=== PATIENT | female | born 1975 | race Caucasian/White ===

== ENCOUNTER → 2017-07-08 11:03 | Outpatient (CLI) | payer MEDICARE, MEDICAID, SELFPAY ==
--- NOTE | 2017-07-08 11:06 | ECHOD_ITS ---
Reason For Study: murmur, MVP Procedure This was a 2D Doppler, Color Flow transthoracic echocardiogram. The exam was of fair technical quality due to diminished acoustic windows. The study was technically difficult. Exam performed in department. Left Ventricle Normal LV size. Left ventricular systolic function is normal. The estimated ejection fraction is 60 %. Transmitral doppler flow suggestive of impaired relaxation of left ventricle. No regional wall motion abnormalities noted. Right Ventricle Normal RV size. Normal systolic function. Atria Normal left atrium. Normal right atrium. No doppler evidence for ASD. Mitral Valve There is no mitral annular calcification. Mild mitral valve prolapse. Trivial mitral valve insufficiency. Tricuspid Valve Normal tricuspid valve. Trivial tricuspid valve insufficiency. Unable to estimate RV systolic pressure/pulmonary artery pressure due to technically difficult study. Aortic Valve Trisinus/trileaflet aortic valve. Normal aortic valve. Pulmonic Valve The pulmonic valve is not well visualized. Great Vessels Normal sized aortic root. Pericardium/Pleural No pericardial effusion. MMode/2D Measurements & Calculations LVIDd: 4.0 cm IVSd: 0.94 cm Ao root diam: 2.2 cm LVIDs: 2.7 cm LVPWd: 0.80 cm LA dimension: 2.4 cm RVDd: 2.3 cm FS: 31.9 % LAV(MOD-bp): 29.0 ml LA A4 area: 11.7 cm2 RA A4 area: 7.0 cm2 LAV(MOD-bp) Indexed: 18.7 ml/m2 LAV(MOD-sp2): 32.1 ml LAV(MOD-sp4): 23.5 ml Doppler Measurements & Calculations MV E max andrew: 58.4 cm/sec Lat Peak E' Andrew: 14.4 cm/sec Med Peak E' Andrew: 6.0 cm/sec MV A max andrew: 68.7 cm/sec E/E' lat: 4.1 E/E' med: 9.7 MV E/A: 0.85 Ao V2 max: 124.2 cm/sec LV V1 max: 101.4 cm/sec PA V2 max: 75.5 cm/sec Ao max P.2 mmHg LV V1 max P.1 mmHg Interpretation Summary The study was technically difficult. Left ventricular systolic function is normal. The estimated ejection fraction is 60 %. Mild mitral valve prolapse. Trivial mitral valve insufficiency. Trivial tricuspid valve insufficiency. Unable to estimate RV systolic pressure/pulmonary artery pressure due to technically difficult study. Transmitral doppler flow suggestive of impaired relaxation of left ventricle Ordering Physician: Anita Corley Referring Physician: Luisa Pemberton Performed By: Sondra Moctezuma RDCS, RVT
== END ==
PROVIDERS: Family Provider Family Medicine; PCP Family Medicine; Visit Provider Physician Assistant Medical
DX: I34.1 Nonrheumatic mitral (valve) prolapse (principal); R01.1 Cardiac murmur, unspecified
CPT/HCPCS: 93306

== ENCOUNTER → 2019-02-02 12:57 | Outpatient (CLI) | payer MEDICARE, MEDICAID, SELFPAY ==
[2019-02-04 16:59] LABS: HPV Reflexed? NOT INDICATED
== END ==
PROVIDERS: Family Provider Family Medicine; PCP Family Medicine; Referring Provider Family Medicine; Visit Provider Family Medicine
DX: Z12.4 Encounter for screening for malignant neoplasm of cervix (principal)
CPT/HCPCS: 88175; G0145

== ENCOUNTER → 2019-04-22 10:36 | Outpatient (CLI) | payer MEDICARE, MEDICAID, SELFPAY ==
--- NOTE | 2019-04-22 10:40 | BI_ITS ---
MAMMOGRAPHY - BILATERAL SCREENING REASON FOR EXAM: Female, 43 years old. Routine annual screening examination. PERTINENT HISTORY: Grandmother with breast cancer. TECHNIQUE: Digital bilateral breast david (3D mammographic acquisition) in the CC and MLO projections. 2-D mediolateral oblique (MLO) and craniocaudad (CC) views of both breasts were obtained. CAD: Full Field Digital Mammography with Computer Added Detection was performed. COMPARISON: Comparison is made with prior study dated April 19, 2016 and September 17, 2014. FINDINGS: Breast Composition: The breasts are heterogeneously dense, which may obscure small masses. There are no dominant masses or suspicious calcifications. Stable 7 mm well-defined nodule in the deep inferior portion of the right breast. This was demonstrated to be a small cyst on prior ultrasound. Stable small benign-appearing bilateral axillary lymph nodes. No other significant abnormalities are identified. There has been no significant change since the prior study. BI/SCREEN MAMM (CAD) W/DAVID BILAT IMPRESSION: Stable bilateral screening mammogram. Yearly follow-up mammogram recommended. (A) ASSESSMENT CATEGORY: BIRADS Category 2: Benign. A letter regarding these results will be sent to the patient by the facility within 30 days. Approximately 10% of breast cancers are not detected by mammography. A normal mammogram should not delay biopsy of a clinically suspicious abnormality. [id number] Electronically Signed: Frandy Hutchinson, at 12:46 EST , Service support ,
== END ==
PROVIDERS: Family Provider Family Medicine; PCP Family Medicine; Referring Provider Family Medicine; Visit Provider Family Medicine
DX: Z12.31 Encounter for screening mammogram for malignant neoplasm of breast (principal); Z80.3 Family history of malignant neoplasm of breast
CPT/HCPCS: 77063; 77067

== ENCOUNTER 2023-08-12 09:02 | Day surgery (SDC) | payer MEDICARE, MEDICAID, SELFPAY ==
--- NOTE | 2023-08-08 13:18 | EKG12_ITS ---
Test Reason : PRE OP Blood Pressure : / mmHG Vent. Rate : 105 BPM Atrial Rate : 105 BPM P-R Int : 128 ms QRS Dur : 076 ms QT Int : 334 ms P-R-T Axes : 076 079 054 degrees QTc Int : 441 ms Sinus tachycardia Otherwise normal ECG Confirmed by ELISABETH SAMANIEGO, HUSAM ([id number]), assignment desk editor DEBORA KATHLEEN ([id number]) on 08/12/2023 6:53:16 AM Referred By: Mohit Henley Confirmed By:CHRISTOPHER BARBER MD
[2023-08-08 14:22] LABS: Hematocrit 43.9 % (37-47); Hemoglobin 13.9 g/dL (12.0-15.0); Mean Corp Hgb Conc 31.7 g/dL (32-36); Mean Corpuscular Volume 91.6 fL (81-99); Mean Platelet Vol. 10.1 fl (6.2-12.0); Platelet Count 352 K/mm3 (150-450); RBC Distribution Width CV 12.6 % (11.6-14.6); RBC Distribution Width SD 42.4 fl (35.1-43.9); Red Blood Count 4.79 M/mm3 (4.2-5.4); White Blood Count 7.8 K/mm3 (4.4-11.0)
[2023-08-08 15:16] LABS: ALB/GLOB Ratio 1.1 RATIO (0.9-2.4); AST(SGOT) 18 U/L (15-37); Alanine Aminotransfer ALT/SGPT 18 U/L (13-56); Albumin, Serum 4.1 g/dL (3.2-5.0); Alkaline Phosphatase 72 U/L (45-117); Anion Gap 6 (5-15); BUN 9 mg/dL (7-18); Calcium,Total 9.7 mg/dL (8.5-10.1); Chloride 110 mmol/L (98-107); EST Glomerular Filtration Rate 72 mL/min (>60); Est Glom Filt Rate - Afr Amer 87 mL/min (>60); Globulin 3.7 g/dL (2.2-4.2); Glucose 82 mg/dL (74-106); Potassium 3.3 mmol/L (3.5-5.1); Protein, Total 7.8 g/dL (6.4-8.2); Sodium Level 141 mmol/L (136-145)
--- NOTE | 2023-08-12 09:22 | SUR.PREOP ---
PATIENT REFUSED TEST. NOT SEXUALLY ACTIVE AND HASN'T HAD A PERIOD IN 25 YEARS.
[2023-08-12 09:32] VITALS: BP 131/73; PULSE 104; RESP 16; TEMP 37.4; O2SAT 99; BMI 16.9
[2023-08-12] MEDS: 0.9% Normal Saline (1000mL) 1,000 ML 15 ML IV (09:41)
--- OUTSIDE RECORDS SUMMARY | 2023-08-12 09:47 | XMS RPT_ITS | CCD ---
Author Name Unknown Address [address] [place] [address] Organization [facility] Care Team Providers Care Reheat Furnace Operator Name Role Phone Erica Art Unavailable Unavailable Erica Art Unavailable Unavailable yTrel, May Unavailable Unavailable Teresa Sarahi Unavailable Unavailable Jolliff, Luisa Hardeep Primary Care Provider [phone] Jochela, Luisa Hardeep Primary Care Provider [phone] Nilay, Luisa Hardeep Primary Care Provider [phone] Nilay, Luisa Hardeep Primary Care Provider [phone] MARYSOL FARRELL Attending Unavailable Jolliff, Luisa Hardeep Primary Care Provider DEMIAN FORMAN Attending Unavailable JOLLIFF, LUISA HARDEEP Primary Care Unavailable LORENZA, JAMESETTA H Admitting Unavailable LORENZA, JAMESETTA H Attending Unavailable JOLLIFF, LUISA HARDEEP Primary Care Unavailable EVELYN FALCON Attending Unavailable JOLLIFF, LUISA HARDEEP Primary Care Unavailable LORENZA, JAMESETTA H Admitting Unavailable LORENZA, JAMESETTA H Attending Unavailable JOLLIFF, LUISA HARDEEP Primary Care Unavailable LORENZA, JAMESETTA H Attending Unavailable JOLLIFF, LUISA HARDEEP Primary Care Unavailable LORENZA, JAMESETTA H Admitting Unavailable LORENZA, JAMESETTA H Attending Unavailable JOLLIFF, LUISA HARDEPE Primary Care Unavailable LORENZA, JAMESETTA H Admitting Unavailable LORENZA, JAMESETTA H Attending Unavailable JOLLIFF, LUISA HARDEEP Primary Care Unavailable SONALI, DEJON Attending Unavailable JOLLIFF, LUISA HARDEEP Primary Care Unavailable SONALI, DEJON Admitting Unavailable SONALI, DEJON Attending Unavailable JOLLIFF, LUISA HARDEEP Primary Care Unavailable LORENZA, JAMESETTA H Admitting Unavailable LORENZA, JAMESETTA H Attending Unavailable JOLLIFF, LUISA HARDEEP Primary Care Unavailable DICKSON, DEMIAN Attending Unavailable JOLLIFF, LUISA HARDEEP Primary Care Unavailable LORENZA, JAMESETTA H Admitting Unavailable LORENZA, JAMESETTA H Attending Unavailable JOLLIFF, LUISA HARDEEP Primary Care Unavailable DICKSON, DEMIAN Attending Unavailable JOLLIFF, LUISA HARDEEP Primary Care Unavailable DICKSON, DEMIAN Attending Unavailable JOLLIFF, LUISA HARDEEP Primary Care Unavailable LORENZA, JAMESETTA H Admitting Unavailable LORENZA, JAMESETTA H Attending Unavailable JOLLIFF, LUISA HARDEEP Primary Care Unavailable LORENZA, JAMESETTA H Admitting Unavailable LORENZA, JAMESETTA H Attending Unavailable JOLLIFF, LUISA HARDEEP Primary Care Unavailable DICKSON, DEMIAN Attending Unavailable JOLLIFF, LUISA HARDEEP Primary Care Unavailable DICKSON, DEMIAN Attending Unavailable JOLLIFF, LUISA HARDEEP Primary Care Unavailable DICKSON, DEMIAN Attending Unavailable JOLLIFF, LUISA HARDEEP Primary Care Unavailable LORENZA, JAMESETTA H Admitting Unavailable LORENZA, JAMESETTA H Attending Unavailable JOLLIFF, LUISA HARDEEP Primary Care Unavailable BRAYDON TRAN Attending Unavailable Allergies Allergy Classification Reported Allergen(s) Allergy Type Date of Onset Reaction(s) Facility (20 sources) Cephalexin; Translations: [CEPHALEXIN] Drug Allergy 08-11-2010 Unknown [facility] Work Phone: (20 sources) Morphine; Translations: [MORPHINE] Drug Allergy 08-14-2012 [facility] Work Phone: (20 sources) PERFUMES; Translations: [PERFUMES] drug allergy 08-14-2012 Unknown [facility] Work Phone: (4 sources) ADHESIVE BANDAGES; Translations: [ADHESIVE BANDAGES] allergy to substance 08-14-2012 [facility] Work Phone: (20 sources) Adhesive agent; Translations: [ADHESIVE] Propensity to adverse reactions 09-10-2002 [facility] (20 sources) Fragrances; Translations: [FRAGRANCES] Allergy to substance 07-23-2012 Rash, [facility] Medications Current Medications Medication Drug Class(es) Dates Sig (Normalized) Sig (Original) oxyCODONE hydrochloride 20 mg/ml oral solution (20 sources) Opioid Agonist Start: 06-19-2023 End: 08-19-2023 take 0.5-1 mL by mouth every four hours as needed for pain and pain, then take 0.5-1 mL by mouth every four hours as needed for pain and pain oxyCODONE concentrate (ROXICODONE) 20 mg/mL concentrated solution Indications: Chronic pain syndrome Take 0.5-1 mL by mouth every 4 hours as needed for pain for up to 25 days. Take 0.5-1mL every 4 hours as needed for pain for up to 25 days 150 mL 0 07/25/2023 08/19/2023 Active Completed/Discontinued Medications Medication Drug Class(es) Dates Sig (Normalized) Sig (Original) acetaminophen 65 mg/ml / oxyCODONE hydrochloride 1 mg/ml oral solution (8 sources) Opioid Agonist Start: 11-06-2007 End: 08-14-2012 ROXICET 5-325 MG/5ML SOLN 20 ml daily OXYCODONE-ACETAMINO PHEN [id number] Nita Braun Problems Active Problems Problem Classification Problem Date Documented Date Episodic/Chronic Allergic reactions (20 sources) Atopic dermatitis; Translations: [Atopic dermatitis, unspecified] Onset: 07-25-2012 07-25-2012 Chronic Cardiac dysrhythmias (20 sources) Supraventricular tachycardia; Translations: [Supraventricular tachycardia] Onset: 08-14-1997 08-11-2010 Chronic Esophageal disorders (20 sources) Gastroesophageal reflux disease; Translations: [Gastro-esophageal reflux disease without esophagitis] Onset: 08-14-1997 02-23-2022 Chronic Headache; including migraine (20 sources) Migraine variants; Translations: [Other migraine, not intractable, without status migrainosus] Onset: 03-13-2005 03-13-2005 Chronic Heart valve disorders (4 sources) Mitral valve prolapse; Translations: [Nonrheumatic mitral (valve) prolapse] Onset: 08-11-2010 08-11-2010 Chronic Malaise and fatigue (20 sources) Fatigue; Translations: [Chronic fatigue, unspecified] Onset: 10-22-1997 02-23-2022 Chronic Other circulatory disease (2 sources) Postural orthostatic tachycardia syndrome ; Translations: [Postural orthostatic tachycardia syndrome (POTS)] Onset: 02-05-2022 Episodic Other circulatory disease (1 source) Orthostatic hypotension; Translations: [Orthostatic hypotension] Onset: 07-15-2023 Episodic Other congenital anomalies (20 sources) Marfan's syndrome; Translations: [Marfan's syndrome, unspecified] Onset: 12-08-2021 Chronic Other congenital anomalies (20 sources) Chiquis-Danlos syndrome; 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, unspecified] Onset: 12-08-2021 Chronic Other congenital anomalies (1 source) Marfan's syndrome, unspecified; Translations: [Marfan's syndrome] Onset: 12-08-2021 Chronic Other nervous system disorders (20 sources) Hereditary motor and sensory neuropathy; Translations: [Hereditary motor and sensory neuropathy] Onset: 02-07-2004 02-07-2004 Chronic Other nervous system disorders (20 sources) Idiopathic peripheral neuropathy; Translations: [Other hereditary and idiopathic neuropathies] Onset: 02-07-2004 02-07-2004 Chronic Other nervous system disorders (20 sources) Chronic pain syndrome; Translations: [Chronic pain syndrome] Onset: 12-08-2021 Chronic Other nervous system disorders (20 sources) Mitochondrial myopathy; Translations: [Mitochondrial myopathy, not elsewhere classified] Onset: 08-14-1997 02-23-2022 Chronic Other nervous system disorders (20 sources) Chronic pain; Translations: [Other chronic pain] Onset: 05-07-2022 Chronic Other nervous system disorders (2 sources) Hereditary motor and sensory neuropathy; Translations: [Jieghvs-Cbycm-Xsmrr disease] Onset: 02-22-2023 Chronic Other nervous system disorders (1 source) Other chronic pain; Translations: [Other chronic pain] Onset: 05-07-2022 Chronic Other nervous system disorders (1 source) Chronic pain syndrome; Translations: [Chronic pain syndrome] Onset: 12-08-2021 Chronic Unclassified (20 sources) ASA CLASS III Onset: 02-09-2003 10-04-2003 Unclassified (1 source) POTS (postural orthostatic tachycardia syndrome); Translations: [POTS (postural orthostatic tachycardia syndrome)] Onset: 02-23-2022 Unclassified (1 source) Chiquis-Danlos syndrome, unspecified; 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] Onset: 12-08-2021 Past or Other Problems Problem Classification Problem Date Documented Date Episodic/Chronic Allergic reactions (20 sources) Urticaria; Translations: [Urticaria, unspecified] Onset: 07-02-2007 07-02-2007 Episodic Cardiac dysrhythmias (20 sources) Palpitations; Translations: [Palpitations] Onset: 08-11-2010 08-11-2010 Episodic Heart valve disorders (4 sources) Heart murmur; Translations: [Cardiac murmur, unspecified] Onset: 08-11-2010 08-11-2010 Episodic Other aftercare (20 sources) Long-term current use of opiate analgesic drug; Translations: [shelter (current) use of opiate analgesic] Onset: 02-23-2022 Episodic Other aftercare (1 source) 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; Translations: [shelter (current) use of opiate analgesic] Onset: 04-19-2022 Episodic Other and unspecified benign neoplasm (20 sources) Melanocytic nevus of upper limb; Translations: [Melanocytic nevi of unspecified upper limb, including shoulder] Onset: 10-14-2012 10-14-2012 Episodic Other and unspecified benign neoplasm (20 sources) Benign neoplasm of skin of upper arm; Translations: [Melanocytic nevi of unspecified upper limb, including shoulder] Onset: 12-02-2013 12-02-2013 Episodic Other and unspecified benign neoplasm (8 sources) Dysplastic nevus of skin; Translations: [Melanocytic nevi of unspecified upper limb, including shoulder] Onset: 12-02-2013 12-02-2013 Episodic Other circulatory disease (20 sources) Orthostatic hypotension; Translations: [Orthostatic hypotension] Onset: 02-19-2013 02-19-2013 Episodic Other circulatory disease (20 sources) Telangiectasia disorder; Translations: [Nevus, non-neoplastic] Onset: 05-31-2013 05-31-2013 Episodic Other circulatory disease (20 sources) Spider nevus; Translations: [Nevus, non-neoplastic] Onset: 05-31-2013 05-31-2013 Episodic Other connective tissue disease (20 sources) Myofascial pain syndrome; Translations: [Myalgia, other site] Onset: 12-08-2021 Episodic Other connective tissue disease (20 sources) Fibromyalgia; Translations: [Fibromyalgia] Onset: 12-08-2021 Episodic Other connective tissue disease (1 source) Myalgia, other site; Translations: [Myofascial pain syndrome] Onset: 12-08-2021 Episodic Other connective tissue disease (1 source) Fibromyalgia; Translations: [Fibromyalgia] Onset: 12-08-2021 Episodic Other inflammatory condition of skin (20 sources) Itching of skin; Translations: [Pruritus, unspecified] Onset: 11-17-2009 11-17-2009 Episodic Other inflammatory condition of skin (20 sources) Seborrheic dermatitis; Translations: [Seborrheic dermatitis, unspecified] Onset: 12-02-2013 12-02-2013 Episodic Other inflammatory condition of skin (20 sources) Pruritus of skin; Translations: [Pruritus, unspecified] Onset: 12-02-2013 12-02-2013 Episodic Other inflammatory condition of skin (19 sources) Pruritus, unspecified; Translations: [Unspecified pruritic disorder] Onset: 11-17-2009 11-17-2009 Episodic Other injuries and conditions due to external causes (20 sources) Open wound; Translations: [Other injury of unspecified body region, initial encounter] Onset: 02-02-2014 02-02-2014 Episodic Other screening for suspected conditions (not mental disorders or infectious disease) (20 sources) Mammography abnormal; Translations: [Other abnormal and inconclusive findings on diagnostic imaging of breast] Onset: 02-23-2014 04-24-2016 Episodic Other skin disorders (20 sources) Vesicular eczema; Translations: [Dyshidrosis [pompholyx]] Onset: 08-09-2008 08-09-2008 Episodic Other skin disorders (20 sources) Acne vulgaris; Translations: [Acne vulgaris] Onset: 07-25-2012 07-25-2012 Episodic Other skin disorders (20 sources) Asteatosis cutis; Translations: [Xerosis cutis] Onset: 07-25-2012 07-25-2012 Episodic Other skin disorders (20 sources) Primary focal hyperhidrosis; Translations: [Primary focal hyperhidrosis, unspecified] Onset: 10-14-2012 10-14-2012 Episodic Other skin disorders (20 sources) Milia; Translations: [Epidermal cyst] Onset: 05-31-2013 05-31-2013 Episodic Other skin disorders (20 sources) Solar lentigo; Translations: [Other melanin hyperpigmentation] Onset: 12-02-2013 12-02-2013 Episodic Residual codes; unclassified (1 source) Pain Onset: 03-18-2023 Episodic Skin and subcutaneous tissue infections (20 sources) Pyoderma; Translations: [Pyoderma] Onset: 12-02-2013 12-02-2013 Episodic Syncope (4 sources) Syncope and collapse; Translations: [Syncope and collapse] Onset: 08-11-2010 08-11-2010 Episodic Results Test Name Value Interpretation Reference Range Facil ity Vital Signs Date Time Vital Sign Value Performing Clinician Facility 08-06-2023 15:13-0500 Diastolic blood pressure 89 mm[Hg] Dejon Andres MD Work Phone: [facility] 08-06-2023 15:13-0500 Heart rate 120 /min Dejon Andres MD Work Phone: [facility] 08-06-2023 15:13-0500 Respiratory rate 18 /min Dejon Andres MD Work Phone: [facility] 08-06-2023 15:13-0500 Systolic blood pressure 152 mm[Hg] Dejon Andres MD Work Phone: [facility] 08-06-2023 14:50-0500 Body temperature 97.81 [degF] Dejon Andres MD Work Phone: [facility] 03-18-2023 16:37-0400 Body height 173.7 cm Morteza Meza DO Work Phone: [facility] 03-18-2023 16:37-0400 Body weight 48.99 kg Morteza Meza DO Work Phone: [facility] 03-18-2023 16:37-0400 Diastolic blood pressure 66 mm[Hg] Morteza Meza DO Work Phone: [facility] 03-18-2023 16:37-0400 Heart rate 84 /min Morteza Meza DO Work Phone: [facility] 03-18-2023 16:37-0400 Respiratory rate 19 /min Morteza Meza DO Work Phone: [facility] 03-18-2023 16:37-0400 SaO2% (BldA) [Mass fraction] 96 % Morteza Meza DO Work Phone: [facility] 10-09-2023 16:37-0400 Systolic blood pressure 128 mm[Hg] Morteza Meza DO Work Phone: [facility] 01-31-2023 13:53-0400 Diastolic blood pressure 90 mm[Hg] Mauriciovaleria Meza DO Work Phone: [facility] 01-31-2023 13:53-0400 Heart rate 98 /min Morteza Meza DO Work Phone: [facility] 01-31-2023 13:53-0400 Respiratory rate 16 /min Mauriciovaleria Meza DO Work Phone: [facility] 01-31-2023 13:53-0400 SaO2% (BldA) [Mass fraction] 99 % Morteza Meza DO Work Phone: [facility] 01-31-2023 13:53-0400 Systolic blood pressure 136 mm[Hg] Morteza Meza DO Work Phone: [facility] 01-31-2023 13:22-0400 Body temperature 97.81 [degF] Mauriciovaleria Meza DO Work Phone: [facility] 01-31-2023 13:22-0400 Body weight 48.81 kg Morteza Meza DO Work Phone: [facility] 08-23-2022 13:35-0400 Body weight 44.81 kg Morteza Meza DO Work Phone: [facility] 08-23-2022 13:35-0400 Diastolic blood pressure 90 mm[Hg] Morteza Meza DO Work Phone: [facility] 08-23-2022 13:35-0400 Heart rate 110 /min Morteza Meza DO Work Phone: [facility] 08-23-2022 13:35-0400 Respiratory rate 16 /min Morteza Meza DO Work Phone: [facility] 08-23-2022 13:35-0400 SaO2% (BldA) [Mass fraction] 100 % Morteza Meza DO Work Phone: [facility] 08-23-2022 13:35-0400 Systolic blood pressure 150 mm[Hg] Morteza Meza DO Work Phone: [facility] 08-23-2022 13:04-0400 Body temperature 98.4 [degF] Morteza Meza DO Work Phone: [facility] 01-30-2022 14:37-0400 Body height 173.7 cm Morteza Meza DO Work Phone: [facility] 01-30-2022 14:37-0400 Body weight 46.27 kg Morteza Meza DO Work Phone: [facility] 01-30-2022 14:37-0400 Diastolic blood pressure 81 mm[Hg] Morteza Meza DO Work Phone: [facility] 01-30-2022 14:37-0400 Heart rate 101 /min Mauriciovaleria Lorenza DO Work Phone: [facility] 01-30-2022 14:37-0400 Respiratory rate 19 /min Morteza Meza DO Work Phone: [facility] 01-30-2022 14:37-0400 SaO2% (BldA) [Mass fraction] 98 % Morteza Meza DO Work Phone: [facility] 01-30-2022 14:37-0400 Systolic blood pressure 132 mm[Hg] Morteza Meza DO Work Phone: [facility] 12-13-2021 13:52-0400 Diastolic blood pressure 68 mm[Hg] Mauriciovaleria Meza DO Work Phone: [facility] 12-13-2021 13:52-0400 Heart rate 112 /min Mauriciovaleria Meza DO Work Phone: [facility] 12-13-2021 13:52-0400 Respiratory rate 16 /min Mauriciovaleria Meza DO Work Phone: [facility] 12-13-2021 13:52-0400 SaO2% (BldA) [Mass fraction] 100 % Morteza Meza DO Work Phone: [facility] 12-13-2021 13:52-0400 Systolic blood pressure 138 mm[Hg] Morteza Meza DO Work Phone: [facility] 02-12-2019 16:55-0400 Body height 170.2 cm Rashida Lange [employer]IMING [employer]ING [employer] Work Phone: [facility] 02-12-2019 16:55-0400 Body weight 59.24 kg Rashida Nazario [employer]IMING MIXTURE CAR[employer]ER.CASING P[employer]ER Work Phone: [facility] 02-12-2019 16:55-0400 Diastolic blood pressure 89 mm[Hg] Rashida Lange [employer]IMING MIXTURE CAR[employer]ER.CASING P[employer]ER Work Phone: [facility] 02-12-2019 16:55-0400 Heart rate 104 /min Rashida Lange PRIMING MIXTURE CARRIER.CASING PULLER Work Phone: [facility] 02-12-2019 16:55-0400 SaO2% (BldA) [Mass fraction] 98 % Rashida Lange [employer]IMING MIXTURE CARRIER.CASING P[employer]ER Work Phone: [facility] 02-12-2019 16:55-0400 Systolic blood pressure 139 mm[Hg] Rashidaandres Lange PRIMING MIXTURE CARRIER.CASING PULLER Work Phone: [facility] 04-18-2017 14:19-0500 Body mass index (BMI) [Ratio] 16.72 kg/m2 [facility] Work Phone: 04-18-2017 14:19-0500 Body weight 49.9 kg [employer] Work Phone: 04-18-2017 14:19-0500 Diastolic blood pressure 80 mm[Hg] [employer] Work Phone: 04-18-2017 14:19-0500 Heart rate 80 /min [employer] Work Phone: 04-18-2017 14:19-0500 Systolic blood pressure 110 mm[Hg] [employer] Work Phone: 10-11-2016 15:34-0400 Body mass index (BMI) [Ratio] 16.42 kg/m2 [facility]a [employer] Work Phone: 10-11-2016 15:34-0400 Body weight 48.99 kg Erica [employer] Work Phone: 10-11-2016 15:34-0400 Diastolic blood pressure 48 mm[Hg] [facility] [employer] Work Phone: 10-11-2016 15:34-0400 Heart rate 92 /min [facility] [employer] Work Phone: 10-11-2016 15:34-0400 Respiratory rate 16 /min [facility] [employer] Work Phone: 10-11-2016 15:34-0400 Systolic blood pressure 102 mm[Hg] [facility] [employer] Work Phone: 01-09-2016 11:05-0400 Body surface area Derived from formula 1.6 m2 Erica [employer] Work Phone: 06-29-2011 11:17-0500 Body height 172.72 cm Erica [employer] Work Phone: Encounters Encounter Date Encounter Type Care Provider Facility Start: 08-06-2023 End: 08-06-2023 Subsequent hospital visit by physician Dejon Andres MD Work Phone: [facility] Procedures Date Procedure Procedure Detail Performing Clinician Start: 08-06-2023 End: 08-06-2023 Chemodervate facial/trigem/cerv musc migraine Dejon Andres MD Work Phone: Start: 01-31-2023 End: 01-31-2023 Chemodervate facial/trigem/cerv musc migraine Morteza Meza DO Work Phone: Start: 08-23-2022 End: 08-23-2022 Injection single/customer solutions coordinator trigger point 3/> muscles Morteza Meza DO Work Phone: Start: 04-18-2017 End: 04-18-2017 Documentation of current medications May Sarah Start: 04-18-2017 End: 04-18-2017 Follow Up Appt 6 months Anita ward PA-C Work Phone: Start: 04-18-2017 End: 04-18-2017 PFM Anita Corley PA-C Work Phone: Start: 10-11-2016 End: 10-11-2016 Dietary management education, guidance, and counseling Ericaparth [place]ball[place]sa Start: 10-11-2016 End: 10-11-2016 Documentation of current medications Erica Carballoshasta Start: 10-11-2016 End: 10-11-2016 Follow Up Appt 6 months Levi Florez MD Start: 10-11-2016 End: 10-11-2016 ANA Florez MD Start: 01-09-2016 End: 01-09-2016 Ecg routine ecg w/least 12 lds w/i&r Anita Corley PA-C Work Phone: Start: 01-09-2016 End: 01-09-2016 Echocardiography Anita Corley PA-C Work Phone: Start: 01-09-2016 End: 01-09-2016 Follow Up Appt 9 months Anita ward PA-C Work Phone: Start: 01-09-2016 End: 01-09-2016 PF Anita Corley PA-C Work Phone: Start: 06-24-2015 End: 01-03-2016 Echocardiography Levi Florez MD Start: 06-24-2015 End: 06-24-2015 Follow Up Appt 6 months Levi Florez MD Start: 06-24-2015 End: 06-24-2015 ANA Florez MD Start: 07-07-2014 End: 07-08-2014 Documentation of current medications Anita Corley PA-C Work Phone: Start: 07-07-2014 End: 07-07-2014 Ecg routine ecg w/least 12 lds w/i&r Anita Corley PA-C Work Phone: Start: 07-07-2014 End: 07-07-2014 Follow Up Appt 6 months Anita ward PA-C Work Phone: Start: 07-07-2014 End: 07-07-2014 PFM Anita Corley PA-C Work Phone: Start: 05-10-2014 End: 07-07-2014 Echocardiography Levi Florez MD Start: 12-30-2013 End: 12-30-2013 Follow Up Appt 6 months Levi Florez MD Start: 12-30-2013 End: 12-30-2013 ANA Florez MD Start: 02-19-2013 End: 06-16-2014 Echocardiography Anita Corley PA-C Work Phone: Start: 02-19-2013 End: 02-19-2013 Follow Up Appt 6 months Anita ward PA-C Work Phone: Start: 02-19-2013 End: 02-19-2013 [facility] Anita Corley PA-C Work Phone: Start: 08-14-2012 End: 02-10-2013 Ecg routine ecg w/least 12 lds w/i&r Levi Florez MD Start: 08-14-2012 End: 08-14-2012 Follow Up Appt 6 months Levi Florez MD Start: 08-14-2012 End: 02-10-2013 ANA Florez MD Start: 02-01-2012 End: 02-01-2012 Ecg routine ecg w/least 12 lds w/i&r Levi Florez MD Start: 02-01-2012 End: 02-10-2013 Echocardiography Levi Florez MD Start: 02-01-2012 End: 02-10-2013 Follow Up Appt 6 months Levi Florez MD Start: 06-29-2011 End: 06-29-2011 Follow Up Appt 6 months Levi Florez MD Plan of Treatment Date Care Activity Detail Author Start: 06-10-2023 Depression Assessment Depression Ass essment [facility] Start: 02-08-2023 Covid-19 Vaccine () Covid-19 Vaccine () [facility] Start: 02-08-[address] 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 Expected: 01/30/2023, Expires: 04/01/2023 [facility] Work Phone: Immunizations Immunization Date Immunization Notes Care Provider Sal cunninhgam 05-01-2021 COVID-19 original vaccine, age 12+ yr, monovalent (PFIZER-BIONTECH - PURPLE TOP) Demian Dickson [employer]IMING MIXTURE CAR[employer]ER.CASING PULLER Work Phone: [facility] 09-07-2020 COVID-19 original vaccine, age 12+ yr, monovalent (PFIZER-BIONTECH - PURPLE TOP) Demian Dickson PRIMING MIXTURE CARRIER.CASING PULLER Work Phone: [facility] 08-17-2020 COVID-19 original vaccine, age 12+ yr, monovalent (PFIZER-BIONTECH - PURPLE TOP) Demian Dickson PRIMING MIXTURE CARRIER.CASING PULLER Work Phone: [facility] Payers Date Payer Category Payer Medicaid [employer] [facility] [id number] 2019-Present [phone] [address] [place] [address] Medicaid [id number] 2019 Medicaid [employer] [id number] 2019-Present [phone] [address] [place] [address] Medicaid [id number] 2019 Medicaid [id number] 2002 Medicare MEDICARE MEDICAR E A AND B [id number] 2002-Present [phone] [address] [address] [place] [address] Medicare [id number] 2002 Medicare MEDICARE MEDICAR E A AND B [id number] 2002-Present [phone] [address] [address] [place] [address] Medicare [id number] 2002 Medicare [id number] 2001 Medicare MEDICARE MEDICAR E A AND B [id number] 2001-Present [phone] [place] [address] Medicare [id number] Social History Date Type Detail Facility Start: 01-30-2022 Tobacco smoking stat us SDIS Never smoked tobacco [facility] Start: 04-24-2016 End: 08-05-2023 Alcohol intake Current drinker of alcohol (finding) [facility] Start: 1975 Sex Assigned At Not on file [facility] Start: 1975 Sex Assigned At Female [facility] Start: 11-18-2021 End: 04-25-2022 Exposure to SARS-CoV-2 (event) Not sure [facility] Start: 01-30-2022 Tobacco use and exposure Smoke less tobacco non-user [facility] Start: 10-10-2022 End: 11-27-2022 History of Social function [facility] Start: 10-10-2022 End: 11-27-2022 Tobacco use panel [facility] National Score (1-10 0), lower number is lower risk 66 [facility] Start: 11-23-2021 Gender identity Identifies as female gender (finding) [facility] Start: 11-23-2021 Sexual orientation Heterosexual (ollie emmanuel) [facility] Clinical Notes 08-09-2008 to 08-06-2023 Discharge Instr - Other OrdersOperative Report - Dejon Andres MD - 08/06/2023 2:51 PM ESTTelephone Encounter - Erika Conway PA-C - 07/25/2023 3:27 PM ESTPatient Instructions Note Date & Type Note Facility 08-06-2023 Hospital Discharg e instructions Dejon Andres MD - 08/06/2023 2:51 PM EST Post-procedure instructions: 1. Rest today. You may feel drowsy the rest of the day. Avoid excessive bending, walking, and lifting. Resume your normal activities tomorrow. 2. Remove Band-Aid tomorrow. 3. Resume your current medications. If you are on any blood thinners or any other medications you were told to stop before your procedure, you may continue those tomorrow. 4. If you received oral sedation, no driving or alcohol for 24 hours. 5. You may shower, but no tub baths for 24 hours. 6. If you are diabetic, check your sugar for the next 5 days as the steroid may elevate you sugar. Call your medical doctor if you sugar is elevated. Before your next injection: (also refer to your pre-procedure checklist given to you when you scheduled your first injection) 1. Stop all blood thinners as you were directed. If you are unsure, please call our office for clarification. 2. If you were prescribed Valium prior to the procedure or if you are to receive oral sedation, you may eat as you normally would, but you do need a feeder driver. Additional Instructions: documented in this encounter [facility] 08-06-2023 Surgical operatio n note Summary: Botox injection Botox Injection PROCEDURE: Botox injection CPT code: 34668 PREPROCEDURE DIAGNOSIS: Migraine headache POSTPROCEDURE DIAGNOSIS: same ANESTHESIA: none PROCEDURE REPORT: The risks and benefits of the procedure were explained to the patient and all questions were answered. The patient gave consent to proceed with the procedure. The skin was prepped with alcohol. BOTOX Lot Number: [id number] BOTOX was reconstituted to a concentration of 2.5 U/0.1mL. The following injections were made using a 30G needle: 15 Botox units to the procerus muscle 15 Botox units to the right stadium attendant supercilii muscle 15 Botox units to the left stadium attendant supercilii muscle 30 Botox units to the frontalis muscle 20 Botox units to the right temporalis muscle 20 Botox units to the left temporalis muscle 25 Botox units to the right occipitalis muscle 25 Botox units to the left occipitalis muscle The needle was withdrawn intact. The patient tolerated the procedure well with no complications noted. SIGNATURE: Dejon Andres MD PATIENT NAME: Capri Aguilar DATE: August 06, 2023 TIME: 2:51 PM documented in this encounter [facility] 07-25-2023 Miscellaneous Notes The following approved medication requests have been transmitted electronically. Requested Prescriptions Signed Prescriptions Disp Refills oxyCODONE concentrate (ROXICODONE) 20 mg/mL concentrated solution 150 mL 0 Sig: Take 0.5-1 mL by mouth every 4 hours as needed for pain for up to 25 days. Take 0.5-1mL every 4 hours as needed for pain for up to 25 days Authorizing Provider: ERIKA CONWAY PA-C Patient phones requesting refills as follows: Requested Prescriptions Pending Prescriptions Disp Refills oxyCODONE concentrate (ROXICODONE) 20 mg/mL concentrated solution 150 mL 0 Sig: Take 0.5-1 mL by mouth every 4 hours as needed for pain for up to 25 days. Take 0.5-1mL every 4 hours as needed for pain for up to 25 days Last UDS: 02/05/2023 10:52 AM EDT UDS CONSISTENT 08/02/22 UDS Consistent last UDS Consistent 01/30/22 kh We will not be escalating opioid dosage Summary Report Date Value Ref Range Status 01/31/2023 FINAL Final Comment: ====== Opiate Class, MS, Ur RFX Oxycodone Class, MS, Ur RFX ToxAssure Flex 23, Ur ====== Test Result Flag Units Drug Present Oxycodone 7125 ng/mg creat Oxymorphone 89243 ng/mg creat Noroxycodone >79906 ng/mg creat Noroxymorphone 5903 ng/mg creat Sources of oxycodone are scheduled prescription medications. Oxymorphone, noroxycodone, and noroxymorphone are expected metabolites of oxycodone. Oxymorphone is also available as a scheduled prescription medication. ====== Test Result Flag Units Ref Range Creatinine 68 mg/dL >=20 ====== Declared Medications: Medication list was not provided. ====== For clinical consultation, please call . ====== No results found for: UQNOTE , OPIATEPNMGT , DRUGSCRPAIN Urine Panel: No results found for: UQCANN , UQBNZL , RND1ZLE , UQAMPH , UQMAMP , UQBUPRE , UQNORBUP , UQMTHD , UQEDDP , UQTRAM , UQDTRM , UQFNTL , UQNFTL , UQCODE , UQMORP , UQDCDN , UQHCOD , UQOXYC , UQHMOR , UQOXYM , UQCREA , UQPH , UQSPGR , UQOXID , UQSPQ @FLOW([id number])@ Lab Results Component Value Date SUMM FINAL 01/31/2023 Summary Report (Summary) Date Value Ref Range Status 01/30/2022 FINAL Final Comment: ====== TOXASSURE COMP DRUG ANALYSIS,UR ====== Test Result Flag Units Drug Present Oxycodone 6739 ng/mg creat Oxymorphone >7299 ng/mg creat Noroxycodone >7299 ng/mg creat Noroxymorphone >7299 ng/mg creat Sources of oxycodone are scheduled prescription medications. Oxymorphone, noroxycodone, and noroxymorphone are expected metabolites of oxycodone. Oxymorphone is also available as a scheduled prescription medication. ====== Test Result Flag Units Ref Range Creatinine 137 mg/dL >=20 ====== Declared Medications: Medication list was not provided. ====== For clinical consultation, please call . ====== Last Opioid agreement effective date: 07/03/2022 Please review and advise. Margot Lanier RN documented in this encounter [facility] 07-15-2023 Note [facility] Reason for Consultation: Follow-up of postural tachycardia syndrome and muscular dystrophy HPI: Capri Aguilar is a 47 y.o. year old with past medical history of Postural orthostatic tachycardia syndrome and muscular dystrophy. 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 She continues to experience extreme fatigue and palpitations and tachycardia. Attempts to control the tachycardia with various agents have been unsuccessful. I would like to try her on medicine to raise her blood pressure somewhat and therefore diminish the tachycardia by this means. To this end up going to place her on droxidopa 100 mg orally 3 times daily. I told her to contact us of any untoward effects occurred. She is also experiencing extreme fatigue most likely due to a combination of all of her pre-existing conditions. To address this I am going to try to place her on modafinil 100 mg daily. 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) Mitral valve disorder Persistent vomiting Postural orthostatic tachycardia syndrome PSH: Past Surgical History: Procedure Laterality Date ABLATION OF DYSRHYTHMIC FOCUS SH: Social Determinants of Health Tobacco Use: Low Risk (07/15/2023) Patient History Smoking Tobacco Use: Never Smokeless Tobacco Use: Never Passive Exposure: Never Alcohol Use: Not on file Financial Resource Strain: Not on file Food Insecurity: Not on file Transportation Needs: Not on file Physical Activity: Not on file Stress: Not on file Social Connections: Not on file Intimate Partner Violence: Not on file (07/15/2023) Depression: Not at risk (07/15/2023) PHQ-2 PHQ-2 Score: 0 Housing Stability: Not on file Utilities: Not on file Meds: Current Outpatient Medications on File Prior to Visit Medication Sig Dispense Refill ipratropium (Atrovent) 42 mcg (0.06 %) nasal spray SPRAY 2 SPRAYS INTO BOTH NOSTRILS TWICE A DAY NEEDED megestrol (Megace) 400 mg/10 mL (40 mg/mL) suspension TAKE 2 MILLILITERS BY MOUTH TWICE A DAY 360 mL 3 montelukast (Singulair) 10 mg tablet TAKE 1 TABLET BY MOUTH EVERYDAY AT BEDTIME 30 tablet 11 ondansetron ODT (Zofran-ODT) 8 mg disintegrating tablet DISSOLVE ONE TABLET ON TOUNGE EVERY 8 HOURS 20 tablet 11 oxyCODONE (Roxicodone) 20 mg/mL concentrated solution TAKE 1/2 1 ML BY MOUTH TYLER 4 HOURS NEEDED amcinonide (Cyclocort) 0.1 % cream if needed. diclofenac (Voltaren) 1 % topical gel lidocaine-prilocaine (Emla) 2.5-2.5 % cream if needed. loratadine (Claritin) 10 mg tablet Take 1 tablet every day by oral route. nebivolol (Bystolic) 2.5 mg tablet Take 1 tablet (2.5 mg) by mouth in the morning. (Patient not taking: Reported on 07/15/2023) 30 tablet 0 [DISCONTINUED] modafinil (Provigil) 100 mg tablet Take 1 tablet (100 mg) by mouth in the morning. (Patient not taking: Reported on 07/15/2023) 30 tablet 0 No current facility-administered medications on file prior to visit. ROS: Cardio Basic Cardiovascular Symptoms: Fatigue, lightheadedness, no leg edema, no syncope, no orthopnea, no PND, no claudication, Constitutional Constitutional: no fever, no night sweats, no significant weight gain, no significant weight loss, no exercise intolerance Eyes Eyes: no dry eyes, no irritation, no vision change ENMT Ears: no difficulty hearing, no ear pain Nose: no frequent nosebleeds, Mouth/Throat: no sore throat, no bleeding gums, no snoring, no dry mouth, no mouth ulcers, no oral abnormalities, no teeth problems Respiratory Respiratory: no cough, no wheezing, no coughing up blood, no sleep apnea Musculoskeletal Musculoskeletal: muscle aches, muscle weakness, joint pain, back pain, no swelling in the extremities Integumentary Skin no rash, no ulcer, no varicosities, no discoloration, no pruritus Neurologic Neurologic: no loss of consciousness, no weakness, no numbness, no seizures, no dizziness, no headaches Psychiatric Psych: no depression, feeling safe in relationship, no alcohol abuse, Hematologic/Lymphatic Hematologic/Lymphatic no swollen glands, no bruising Physical Exam: Constitutional General Appearance: well-nourished, well-developed, appears stated age Level of Distress: comfortable Psychiatric Mental Status: alert, normal affect Orientation: oriented to time, place, and person Insight: good judgement Lungs Respiratory Effort: unlabored Chest Exam: normal curvature, no thoracic deformity Auscultation: clear, no wheezing, no rales, no rhonchi Cardiovascular Rate And Rhythm: regular Heart Sounds: normal S1, normal s2, no gallop Systolic Murmur: not heard Diastolic Murmur: not heard Extremities: no cyanosis, no edema, no periphe (more content not included)... [facility] 07-04-2023 Note HNO ID: [id number] Author: ERIKA CONWAY PA-C Service: ? Author Type: Physician Ruling Machine Set Up Operator Type: Progress Notes Filed: 07/04/2023 13:19 Note Text: Both orders are in. Erika Conway PA-C [facility] 06-19-2023 Note HNO ID: [id number] Author: DEJON ANDRES MD Service: ? Author Type: Anesthesiologist Type: Progress Notes Filed: 06/20/2023 07:46 Note Text: This note was created using Shopliment[employer]. Subjective Capri Aguilar is a 47 year old female. The patient primarily being seen for generalized pain and migraines Patient was last seen on: 03/18/[address] Meza At that time, the treatment plan was: see notes Current Meds: Oxycodone last dose 130pm today Efficacy: med helps pain Side effects:none TENS unit: yes does not use allergic to pads How often used: Benefit: Physical Therapy: Last UDS: 01/31/23 Last injection: 05/01/23 Botox inj OARRS reviewed yes INTAKE PAIN ASSESSMENT 05/01/2023 06/19/2023 Are you having pain associated with your visit today? - Yes, Provider notified Pain Scales - Verbal (Numeric Rating or Visual Analog Scale) Pain Level 4 6 Pain Location Generalized Generalized Description - Sore;Throbbing;Aching Duration Amount of Time - - Duration Units - - Frequency - Continuous Intervention/Comfort measure - Medication Pain Assessment Reassessment - [facility] Patient is transferring to us from Dr. Meza. The patient is's 47-year-old woman who presents with a longstanding history of generalized body pain that is worse on her neck, shoulders, and back. Patient was diagnosed with fibromyalgia, migraine headache, Chiquis-Danlos syndrome, and Rkxvaqx-Rtlza-Ntnvb disease. She is presently maintained on oxycodone liquid which gives her decent relief without side effects. She was previously offered Narcan but patient says that there is no chance that anybody at home and overdose. She has also been getting Botox injections and trigger point injections which have been helping her. She denies side effects from her present regimen. This has improved her level of functionality. Prescription drug monitoring report and drug screen were both consistent and unremarkable. She is due for another trigger point injection this month and Botox injection next month. Records from Dr. Meza were reviewed. Review of Systems GENERAL: negative Recent Weight Loss: Fever: HEENT: negative Recent Hearing Changes: Recent Vision Changes: Nose Bleeds: NECK: Lumps: Neck Swelling: Neck Pain: positive Dizziness: positive Light Headed: positive Numbness: positive Tingling: positive RESPIRATORY: Cough: Wheezing: Shortness of Breath: positive CARDIOVASCULAR: Chest Pain: Swelling: Palpitations (Racing or Skipped Heartbeats): positive GASTROINTESTINAL: negative Abdominal Discomfort: Diarrhea: Constipation: Blood in Stools: GENITOURINARY: negative Difficult Urination: Frequent Urination: Urinary Incontinence (Accidents): PSYCHIATRIC: negative Depression: Anxiety: Bipolar Disorder: HEMATOLOGIC/LYMPHATIC/IMMUNOLOG IC: negative Easy Bruising: Swollen Nodes: ENDOCRINE: Cold Intolerance: positive Heat Intolerance: positive MUSKULOSKELETAL: Back Pain: positive Joint Pain: positive Joint Swelling: Numbness: positive Tingling: positive Muscle Cramps: positive Muscle Weakness: positive Stiffness: positive Arthritis: positive Sciatica: Restless Legs: Leg Pain at Night: positive Leg Pain with Exertion: positive NEUROLOGIC: Paralysis: Paresthesias (Pains and Porter): Seizures: Tremors: Vertigo: positive Transient Blindness: Frequent Falls: positive Frequent Headaches: positive Difficulty Walking: positive ALLERGY: negative Urticaria: Allergic Rash: Hay Fever: Recurrent Infections: DERM: Lesions: Rash: Itching: positive Objective BP 150/93 (BP Site: Left Arm, BP Position: Sitting, BP Cuff Size: Large Adult) Pulse 100 Temp 36.1 ?C (97 ?F) Resp 18 LMP (LMP Unknown) SpO2 99% Physical Exam Vitals and nursing note reviewed. Constitutional: General: She is not in acute distress. Appearance: Normal appearance. She is normal weight. HENT: Head: Normocephalic and atraumatic. Right Ear: External ear normal. Left Ear: External ear normal. Nose: Nose normal. Eyes: General: No scleral icterus. Extraocular Movements: Extraocular movements intact. Conjunctiva/sclera: Conjunctivae normal. Musculoskeletal: Comments: Patient walks with a normal gait. There is increased pain on range of motion of the cervical and lumbar spine. She has diffuse tender points all over her body. Skin: General: Skin is warm and dry. Neurological: Mental Status: She is alert and oriented to person, place, and time. Psychiatric: Mood and Affect: Mood normal. Behavior: Behavior normal. Thought Content: Thought content normal. Judgment: Judgment normal. Assessment and Plan ASSESSMENT/PLAN: 1. Chronic pain syndrome - ICD9: 338.4, ICD10: G89.4 (primary diagnosis) 2. Fibromyalgia - ICD9: 729.1, ICD10: M79.7 - SURGICAL REQUEST - ELECTIVE (01/2020) 3. Intractable chronic migraine (more content not included)... [facility] 04-23-2023 Miscellaneous Notes Summary: Pt to see Dr Andres Items addressed in this encounter: MyChart Encounter Patient will see Dr Andres and speak to him about her injections. She will call in for refills until her first appt with Dr Andres Jun 19, 2023 Able to close encounter. Nataliya Page MA April 23, 2023 1:09 PM 1:09 PM documented in this encounter [facility] 04-23-2023 Miscellaneous Notes Summary: Virtual Visit Pre Check In Items addressed in this encounter: Virtual Visit Pre Check In Able to close encounter. Nataliya Page MA April 23, 2023 6:40 AM 6:40 AM documented in this encounter [facility] 03-27-2023 Miscellaneous Notes Discussed with Ana, she will call pt Roxana Byrne RN March 27, 2023 2:06 PM documented in this encounter [facility] 03-19-2023 Miscellaneous Notes Order placed Capri Gonzalez will be due for her next Botox injection on May 01. Please build a case and closer to that date I will speak to her and get an update on the previous injection. Thanks, Ana March 19, 2023 11:02 AM documented in this encounter [facility] 03-18-2023 Note HNO ID: [id number] Author: Morteza Meza DO Service: ? Author Type: Physician Type: Progress Notes Filed: 03/24/2023 8:56 PM Note Text: Summary: Pain management follow-up DATE: March 18, 2023 Chief Complaint: migraines, whole body joint and muscle pain History of Present Illness: Capri Aguilar is a 47 year old female being seen at [facility] for a evaluation and/or management of their chronic pain. The patient was last seen in a virtual health visit on 02/22/2023 by Evelyn Falcon NP, and the plan of care was as follows: Continue OxyIR liquid Continue Botox q12 weeks - last done on 01/31/23-100% relief Continue Trigger Point Injections - last done on 10/25/22-scheduled for 02/27/23 F/U in 1 month Pain Location: generalized pain, migraines, daily tension headaches Pain Scale:6 on 0-10 scale per patient Pain Character: aching and throbbing Timing: occurs constantly Radiation: all over Patient Reports numbness and tingling below knees and elbows bilaterally The pain is exacerbated by activity The pain is mitigated by Trigger Point Injections, Botox injections, medications Symptoms interfere with physical activity, walking and social activities. History of Falls: None in the past 3 months She is currently prescribed oxycodone from our office. The patient states the last dose of oxycodone was taken this afternoon. The medications are partially effective. She could not tolerate remeron. Prior pain treatment has included: Botox injections; Trigger Point Injections; IV Lidocaine infusion 05/04/2020 Medication trials: Imitrex, Topamax, nortriptyline, Maxalt, [id number] Excedrin, Tylenol, Advil, Phenergan, patient cannot tolerate caffeine products or muscle relaxants PDMP website checked and validated. The OARRS report has been reviewed and is consistent with the patients medical history and medication intake. Last Opioid agreement effective date: 07/03/2022 Last UDS: Reviewed - No inconsistencies noted. Summary Report Date Value Ref Range Status 01/31/2023 FINAL Final Comment: ====== Opiate Class, MS, Ur RFX Oxycodone Class, MS, Ur RFX ToxAssure Flex 23, Ur ====== Test Result Flag Units Drug Present Oxycodone 7125 ng/mg creat Oxymorphone 42133 ng/mg creat Noroxycodone >59735 ng/mg creat Noroxymorphone 5903 ng/mg creat Sources of oxycodone are scheduled prescription medications. Oxymorphone, noroxycodone, and noroxymorphone are expected metabolites of oxycodone. Oxymorphone is also available as a scheduled prescription medication. ====== Test Result Flag Units Ref Range Creatinine 68 mg/dL >=20 ====== Declared Medications: Medication list was not provided. ====== For clinical consultation, please call . ====== Summary Report (Summary) Date Value Ref Range Status 01/30/2022 FINAL Final Comment: ====== TOXASSURE COMP DRUG ANALYSIS,UR ====== Test Result Flag Units Drug Present Oxycodone 6739 ng/mg creat Oxymorphone >7299 ng/mg creat Noroxycodone >7299 ng/mg creat Noroxymorphone >7299 ng/mg creat Sources of oxycodone are scheduled prescription medications. Oxymorphone, noroxycodone, and noroxymorphone are expected metabolites of oxycodone. Oxymorphone is also available as a scheduled prescription medication. ====== Test Result Flag Units Ref Range Creatinine 137 mg/dL >=20 ====== Declared Medications: Medication list was not provided. ====== For clinical consultation, please call . ====== Chronic Pain Functional Assessment Tools Pain Disability Index: Pain Disability Index 11/25/2022 03/18/2023 Family/Home Responsibilities 0 No Disability 6 Recreation 0 No disability 6 Social Activity 0 No disability 6 Occupation 0 No disability 6 Sexual Behavior 0 No disability 6 Self Care 0 No disability 6 Life Support Activity 0 No disability 6 PDI Score 0 42 Pain Enjoyment of Life and G (more content not included)... [facility] 03-18-2023 Instructions Morteza Meza DO - 03/18/2023 4:54 PM EDT Continue OxyIR liquid 2. Continue Botox q12 weeks - last done on 01/31/23-100% relief. Check on rescheduling for 05/01/2023. 3. Continue Trigger Point Injections - last done on 10/25/22-TPI scheduled for 04/24/23 5. Patient was transferred to for next follow-up visit in 3 months. documented in this encounter [facility] 03-18-2023 History of Presen t illness Narrative Summary: Pain management follow-up DATE: March 18, 2023 Chief Complaint: migraines, whole body joint and muscle pain History of Present Illness: Capri Aguilar is a 47 year old female being seen at [facility] for a evaluation and/or management of their chronic pain. The patient was last seen in a virtual health visit on 02/22/2023 by Evelyn Falcon NP, and the plan of care was as follows: Continue OxyIR liquid Continue Botox q12 weeks - last done on 01/31/23-100% relief Continue Trigger Point Injections - last done on 10/25/22-scheduled for 02/27/23 F/U in 1 month Pain Location: generalized pain, migraines, daily tension headaches Pain Scale:6 on 0-10 scale per patient Pain Character: aching and throbbing Timing: occurs constantly Radiation: all over Patient Reports numbness and tingling below knees and elbows bilaterally The pain is exacerbated by activity The pain is mitigated by Trigger Point Injections, Botox injections, medications Symptoms interfere with physical activity, walking and social activities. History of Falls: None in the past 3 months She is currently prescribed oxycodone from our office. The patient states the last dose of oxycodone was taken this afternoon. The medications are partially effective. She could not tolerate remeron. Prior pain treatment has included: Botox injections; Trigger Point Injections; IV Lidocaine infusion 05/04/2020 Medication trials: Imitrex, Topamax, nortriptyline, Maxalt, [id number] Excedrin, Tylenol, Advil, Phenergan, patient cannot tolerate caffeine products or muscle relaxants PDMP website checked and validated. The OARRS report has been reviewed and is consistent with the patients medical history and medication intake. Last Opioid agreement effective date: 07/03/2022 Last UDS: Reviewed - No inconsistencies noted. Summary Report Date Value Ref Range Status 01/31/2023 FINAL Final Comment: ====== Opiate Class, MS, Ur RFX Oxycodone Class, MS, Ur RFX ToxAssure Flex , Ur ====== Test Result Flag Units Drug Present Oxycodone 7125 ng/mg creat Oxymorphone 62286 ng/mg creat Noroxycodone >07309 ng/mg creat Noroxymorphone 5903 ng/mg creat Sources of oxycodone are scheduled prescription medications. Oxymorphone, noroxycodone, and noroxymorphone are expected metabolites of oxycodone. Oxymorphone is also available as a scheduled prescription medication. ====== Test Result Flag Units Ref Range Creatinine 68 mg/dL >=20 ====== Declared Medications: Medication list was not provided. ====== For clinical consultation, please call . ====== Summary Report (Summary) Date Value Ref Range Status 01/30/2022 FINAL Final Comment: ====== TOXASSURE COMP DRUG ANALYSIS,UR ====== Test Result Flag Units Drug Present Oxycodone 6739 ng/mg creat Oxymorphone >7299 ng/mg creat Noroxycodone >7299 ng/mg creat Noroxymorphone >7299 ng/mg creat Sources of oxycodone are scheduled prescription medications. Oxymorphone, noroxycodone, and noroxymorphone are expected metabolites of oxycodone. Oxymorphone is also available as a scheduled prescription medication. ====== Test Result Flag Units Ref Range Creatinine 137 mg/dL >=20 ====== Declared Medications: Medication list was not provided. ====== For clinical consultation, please call . ====== Chronic Pain Functional Assessment Tools Pain Disability Index: Pain Disability Index 11/25/2022 03/18/2023 Family/Home Responsibilities 0 No Disability 6 Recreation 0 No disability 6 Social Activity 0 No disability 6 Occupation 0 No disability 6 Sexual Behavior 0 No disability 6 Self Care 0 No disability 6 Life Support Activity 0 No disability 6 PDI Score 0 42 Pain Enjoyment of Life and General Activity Scale (0-10): PEG: A Three-Item Scale Assessing Pain Intensity and Interference What number best describes your pain on average in the past week?: 6 (03/18/2023 4:00 PM) What number best describes how, during the past week, pain has interfered with your enjoyment of life?: 6 (03/18/2023 4:00 PM) What number best describes how, during the past week, pain has interfered with your general activity?: 5 (03/18/2023 4:00 PM) REVIEW OF SYSTEMS: GENERAL: No weight loss, malaise or fevers RESPIRATORY: Negative for cough, hemoptysis, wheezing, COPD, dyspnea or shortness of breath. CARDIOVASCULAR: Negative for chest pain, leg swelling, hypertension, CHF or palpitations GI: No nausea, vomiting, or diarrhea. MUSCULOSKELETAL: Negative for joint pain or swelling, back pain or muscle pain. 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 Other acne Persistent vomiting PAST SURGICAL HISTORY Procedure Laterality Date EAR TUBES HX ESOPHAGOGASTRODUODENOSCOPY TRANSORAL DIAGNOSTIC 01/04/03 EGD EXTRACTION, ERUPTED TOOTH OR EXPOSED ROOT (ELEVATION AND/OR FORCEPS REMOVAL) 99 WISODOM TEETH FOOT SURGERY HX HAMMERTOE REVISION, ONE TOE 95, 97 Bialteral/ hammertoe & arches KNEE SURGERY HX MYRINGOTOMY ASPIR&/EUSTACHIAN TUBE NFLTJ ANES 05/20 Myringotomy/tubes PAST SURGICAL HISTORY OF , , , FOOT, KNEE,ANKLES PAST SURGICAL HISTORY OF 2002 MUSCLE BIOPSY PAST SURGICAL HISTORY OF 1997 CARDIAC SURGERY TONSILLECTOMY & ADENOIDECTOMY <AGE 14 TONSILLECTOMY PRIMARY/SECONDARY <AGE 14 1982 Tonsillectomy FAMILY HISTORY Problem Relation Age of Onset other (CHARCOT MAXIM TOOTH) Mother Stroke Paternal Grandfather Hypertension Paternal Grandfather Heart Paternal Grandfather Breast Cancer Maternal Grandmother Breast Cancer Paternal Grandmother Social History Tobacco Use Smoking status: Never Smokeless tobacco: Never Substance Use Topics Alcohol use: Yes Drug use: No Work Status: disabled Allergies: Cephalexin Unknown Adhesive Hives Fragrances Rash, Hives Morphine Hives Perfumes Unknown Adhesive Current Outpatient Medications Medication Sig ipratropium bromide (ATROVENT) 42 mcg (0.06 %) nasal spray SPRAY 2 SPRAYS INTO EACH NOSTRIL TWICE A DAY megestrol (MEGACE) 400 mg/10 mL (40 mg/mL) suspension megestrol 400 mg/10 mL (40 mg/mL) oral suspension TAKE 2 ML TWICE A DAY BY ORAL ROUTE FOR 90 DAYS. modafinil (PROVIGIL) 100 mg tablet Take 1 tablet by mouth once daily for 30 days. montelukast 10 mg tablet Take 10 mg by mouth daily at bedtime. Take one(1) tablet daily. naloxone 4 mg/actuation nasal spray (NARCAN) Use 1 spray in one nostril as needed for overdose. May repeat every 2 to 3 min in alternating nostrils until medical assistance is available nebivolol (BYSTOLIC) 2.5 mg tablet ondansetron (ZOFRAN) 8 mg tablet ondansetron HCl 8 mg tablet TAKE 1 TABLET BY MOUTH THREE TIMES A DAY ondansetron orally disintegrating (ZOFRAN ODT) 8 mg disintegrating tablet oxyCODONE concentrate (ROXICODONE) 20 mg/mL concentrated solution Take 0.5-1 mL by mouth every 4 hours as needed for pain for up to 25 days. Take 0.5-1mL every 4 hours as needed for pain for up to 25 days No current facility-administered medications for this visit. PHYSICAL EXAMINATION: Vitals: BP 128/66 Pulse 84 Resp 19 Ht 5' 8.4 (1.74m) Wt 108 lb (49.0kg) SpO2 96% BMI 16.24 kg/(m^2). GENERAL: well developed, well nourished, in no acute distress. Msk: no deformity or scoliosis noted of thoracic or lumbar spine. +4 out of 5 motor strength bilateral legs proximally and distally. +2 out of 4 DTRs L4 and S1 bilaterally. Dorsalis pedis artery pulses are intact. Negative signs of bilateral leg edema or cyanosis noted. Tenderness at lumbar midline paraspinal muscle region with palpation. Sensation is intact to light touch throughout all dermatomes. ASSESSMENT: 1. Other chronic pain G89.29 2. Fibromyalgia M79.7 3. 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 Chronic pain syndrome G89.4 6. 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 Chronic pain is persistent. Medications are helping Capri Aguilar to have an improved quality of life. Patient compliance with Opioid Contract: patient is compliant PDMP website checked and validated. [place]ARRS report reviewed on March 18, 2023 by Renetta Guajardo and is consistent with the patients medical history and medication intake. PLAN: The patient understands the goal of our treatment is a reduction in pain and/or an improved level of functioning with activities of daily living. If at any time the patient does not feel the medications are helping them to achieve these goals, the medications may be discontinued. The patient reports a reduction in pain and/or an improved level of functioning with activities of daily living, denies any significant adverse effects, is compliant with the pain management agreement and there are no signs of medication misuse, abuse or diversion; therefore, the medications will be continued. The documentation for this encounter was entered by Renetta Guajardo medical education specialist for Dr. Morteza Meza on March 18, 2023 I, Dr. Morteza Meza, personally performed the services described in this documentation. All medical record entries made by the scribe were at my direction and in my presence. I have reviewed the chart and discharge instructions and agree that the record reflects my personal performance and is accurate and complete. Electronically Signed: Dr. Meza. March 18, 2023. documented in this encounter [facility] 02-22-2023 Note HNO ID: [id number] Author: Evelyn Falcon APRN.VISHAL Service: ? Author Type: Nurse Practitioner Type: Progress Notes Filed: 02/25/2023 3:18 PM Note Text: This video visit was performed via [employer] video visit. Patient consented to receive health care services via virtual visit for this encounter Provider Location: Non-[facility] Patient Location: Patient Home or Place of Residence I have communicated my name and active licensure. The patient's identity and physical location were verified at the time of this visit. Either the patient or their legal compliance representative has been informed of the risks and benefits of -- and alternatives to -- treatment through a remote evaluation and consents to proceed with the evaluation remotely. Chief Complaint: Pain History of Present Illness: Capri Aguilar is a 47 year old year old female being seen at [facility] for a evaluation and/or management of her chronic pain. The patient was last seen virtually on 01/23/2023. She states that since the last visit symptoms have been stable. Her medical history has not changed and she denies any hospital stays or ER visits. On 01/31/23 she had BOTOX and received 100% relief and it continues to help. Pain Location: generalized pain, migraines, daily tension headaches Pain Scale:6 on 0-10 scale per patient Pain Character: aching and throbbing Timing: occurs constantly Radiation: all over Patient Reports numbness and tingling below knees and elbows bilaterally The pain is exacerbated by activity The pain is mitigated by Trigger Point Injections, Botox injections, medications Symptoms interfere with physical activity, walking and social activities. History of Falls: None in the past 3 months She is currently prescribed oxycodone from our office. The patient states the last dose of oxycodone was taken this afternoon. The medications are partially effective. She could not tolerate remeron. Prior pain treatment has included: Botox injections; Trigger Point Injections; IV Lidocaine infusion 05/04/2020 Medication trials: Imitrex, Topamax, nortriptyline, Maxalt, [id number] Excedrin, Tylenol, Advil, Phenergan, patient cannot tolerate caffeine products or muscle relaxants PDMP website checked and validated. The OARRS report has been reviewed and is consistent with the patients medical history and medication intake. Last Opioid agreement effective date: 07/03/2022 Last UDS: Reviewed - No inconsistencies noted. Summary Report Date Value Ref Range Status 01/31/2023 FINAL Final Comment: ====== Opiate Class, MS, Ur RFX Oxycodone Class, MS, Ur RFX ToxAssure Flex 23, Ur ====== Test Result Flag Units Drug Present Oxycodone 7125 ng/mg creat Oxymorphone 04171 ng/mg creat Noroxycodone >45957 ng/mg creat Noroxymorphone 5903 ng/mg creat Sources of oxycodone are scheduled prescription medications. Oxymorphone, noroxycodone, and noroxymorphone are expected metabolites of oxycodone. Oxymorphone is also available as a scheduled prescription medication. ====== Test Result Flag Units Ref Range Creatinine 68 mg/dL >=20 ====== Declared Medications: Medication list was not provided. ====== For clinical consultation, please call . ====== Chronic Pain Functional Assessment Tools Pain Disability Index: Pain Disability Index 10/08/2022 11/25/2022 Family/Home Responsibilities 0 No Disability 0 No Disability Recreation 0 No disability 0 No disability Social Activity 0 No disability 0 No disability Occupation 0 No disability 0 No disability Sexual Behavior 0 No disability 0 No disability Self Care 0 No disability 0 No disability Life Support Activity 0 No disability 0 No disability PDI Score 0 0 Pain Enjoyment of Life and General Activity Scale (0-10): PEG: A Three-Item Scale Assessing Pain Intensity and Interference What number best describes your pain on average in the past week?: 6 (12/17/2022 3:04 PM) What number best describes how, during the past week, pain has interfered with your enjoyment of life?: 0 - Does not interfere (12/17/2022 3:04 PM) What number best describes how, during the past week, pain has interfered with your general activity?: 0 - Does not interfere (12/17/2022 3:04 PM) REVIEW OF SYSTEMS: GENERAL: No weight loss or fevers RESPIRATORY: Negative for cough CARDIOVASCULAR: Negative for chest pain GI: No nausea, vomiting, or diarrhea. MUSCULOSKELETAL: Positive j (more content not included)... [facility] 02-22-2023 Instructions Evelyn Falcon APRN.CASING PULLER - 02/22/2023 4:09 PM EDT Continue OxyIR liquid Continue Botox q12 weeks - last done on 01/31/23-100% relief Continue Trigger Point Injections - last done on 10/25/22-scheduled for 02/27/23 F/U in 1 month Evelyn Falcon APRN.CNP documented in this encounter [facility] 02-22-2023 Miscellaneous Notes I spoke with Capri and verified her TPI's are on Feb 27 at 3:45. She verbalized understanding. There was a different procedure scheduled that day/time so it was corrected. Ana February 22, 2023 4:07 PM documented in this encounter [facility] 02-22-2023 History of Presen t illness Narrative This video visit was performed via [employer] video visit. Patient consented to receive health care services via virtual visit for this encounter Provider Location: Non-[facility] Patient Location: Patient Home or Place of Residence I have communicated my name and active licensure. The patient's identity and physical location were verified at the time of this visit. Either the patient or their legal compliance representative has been informed of the risks and benefits of -- and alternatives to -- treatment through a remote evaluation and consents to proceed with the evaluation remotely. Chief Complaint: Pain History of Present Illness: Capri Aguilar is a 47 year old year old female being seen at [facility] for a evaluation and/or management of her chronic pain. The patient was last seen virtually on 01/23/2023. She states that since the last visit symptoms have been stable. Her medical history has not changed and she denies any hospital stays or ER visits. On 01/31/23 she had BOTOX and received 100% relief and it continues to help. Pain Location: generalized pain, migraines, daily tension headaches Pain Scale:6 on 0-10 scale per patient Pain Character: aching and throbbing Timing: occurs constantly Radiation: all over Patient Reports numbness and tingling below knees and elbows bilaterally The pain is exacerbated by activity The pain is mitigated by Trigger Point Injections, Botox injections, medications Symptoms interfere with physical activity, walking and social activities. History of Falls: None in the past 3 months She is currently prescribed oxycodone from our office. The patient states the last dose of oxycodone was taken this afternoon. The medications are partially effective. She could not tolerate remeron. Prior pain treatment has included: Botox injections; Trigger Point Injections; IV Lidocaine infusion 05/04/2020 Medication trials: Imitrex, Topamax, nortriptyline, Maxalt, asny-ejl-tncgnke Excedrin, Tylenol, Advil, Phenergan, patient cannot tolerate caffeine products or muscle relaxants PDMP website checked and validated. The OARRS report has been reviewed and is consistent with the patients medical history and medication intake. Last Opioid agreement effective date: 07/03/2022 Last UDS: Reviewed - No inconsistencies noted. Summary Report Date Value Ref Range Status 01/31/2023 FINAL Final Comment: ====== Opiate Class, MS, Ur RFX Oxycodone Class, MS, Ur RFX ToxAssure Flex 23, Ur ====== Test Result Flag Units Drug Present Oxycodone 7125 ng/mg creat Oxymorphone 78901 ng/mg creat Noroxycodone >56121 ng/mg creat Noroxymorphone 5903 ng/mg creat Sources of oxycodone are scheduled prescription medications. Oxymorphone, noroxycodone, and noroxymorphone are expected metabolites of oxycodone. Oxymorphone is also available as a scheduled prescription medication. ====== Test Result Flag Units Ref Range Creatinine 68 mg/dL >=20 ====== Declared Medications: Medication list was not provided. ====== For clinical consultation, please call . ====== Chronic Pain Functional Assessment Tools Pain Disability Index: Pain Disability Index 10/08/2022 11/25/2022 Family/Home Responsibilities 0 No Disability 0 No Disability Recreation 0 No disability 0 No disability Social Activity 0 No disability 0 No disability Occupation 0 No disability 0 No disability Sexual Behavior 0 No disability 0 No disability Self Care 0 No disability 0 No disability Life Support Activity 0 No disability 0 No disability PDI Score 0 0 Pain Enjoyment of Life and General Activity Scale (0-10): PEG: A Three-Item Scale Assessing Pain Intensity and Interference What number best describes your pain on average in the past week?: 6 (12/17/2022 3:04 PM) What number best describes how, during the past week, pain has interfered with your enjoyment of life?: 0 - Does not interfere (12/17/2022 3:04 PM) What number best describes how, during the past week, pain has interfered with your general activity?: 0 - Does not interfere (12/17/2022 3:04 PM) REVIEW OF SYSTEMS: GENERAL: No weight loss or fevers RESPIRATORY: Negative for cough CARDIOVASCULAR: Negative for chest pain GI: No nausea, vomiting, or diarrhea. MUSCULOSKELETAL: Positive joint pain or swelling, back pain or muscle pain. 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 Other acne Persistent vomiting PAST SURGICAL HISTORY Procedure Laterality Date EAR TUBES HX ESOPHAGOGASTRODUODENOSCOPY TRANSORAL DIAGNOSTIC 01/04/03 EGD EXTRACTION, ERUPTED TOOTH OR EXPOSED ROOT (ELEVATION AND/OR FORCEPS REMOVAL) 99 WISODOM TEETH FOOT SURGERY HX HAMMERTOE REVISION, ONE TOE 95, 97 Bialteral/ hammertoe & arches KNEE SURGERY HX MYRINGOTOMY ASPIR&/EUSTACHIAN TUBE NFLTJ ANES 05/20 Myringotomy/tubes PAST SURGICAL HISTORY OF , 04, 03, FOOT, KNEE,ANKLES PAST SURGICAL HISTORY OF 2002 MUSCLE BIOPSY PAST SURGICAL HISTORY OF 1997 CARDIAC SURGERY TONSILLECTOMY & ADENOIDECTOMY <AGE 14 TONSILLECTOMY PRIMARY/SECONDARY <AGE 14 1982 Tonsillectomy FAMILY HISTORY Problem Relation Age of Onset other (CHARCOT MAXIM TOOTH) Mother Stroke Paternal Grandfather Hypertension Paternal Grandfather Heart Paternal Grandfather Breast Cancer Maternal Grandmother Breast Cancer Paternal Grandmother Social History Tobacco Use Smoking status: Never Smokeless tobacco: Never Substance Use Topics Alcohol use: Yes Drug use: No Work Status: on chronic disability Allergies: Cephalexin Unknown Adhesive Hives Fragrances Rash, Hives Morphine Hives Perfumes Unknown Adhesive Current Outpatient Medications Medication Sig oxyCODONE concentrate (ROXICODONE) 20 mg/mL concentrated solution Take 0.5-1 mL by mouth every 4 hours as needed for pain for up to 25 days. Take 0.5-1mL every 4 hours as needed for pain for up to 25 days Do not start before February 01, 2023. nebivolol (BYSTOLIC) 2.5 mg tablet modafinil (PROVIGIL) 100 mg tablet Take 1 tablet by mouth once daily for 30 days. ipratropium bromide (ATROVENT) 42 mcg (0.06 %) nasal spray SPRAY 2 SPRAYS INTO EACH NOSTRIL TWICE A DAY ondansetron (ZOFRAN) 8 mg tablet ondansetron HCl 8 mg tablet TAKE 1 TABLET BY MOUTH THREE TIMES A DAY megestrol (MEGACE) 400 mg/10 mL (40 mg/mL) suspension megestrol 400 mg/10 mL (40 mg/mL) oral suspension TAKE 2 ML TWICE A DAY BY ORAL ROUTE FOR 90 DAYS. ondansetron orally disintegrating (ZOFRAN ODT) 8 mg disintegrating tablet montelukast 10 mg tablet Take 10 mg by mouth daily at bedtime. Take one(1) tablet daily. No current facility-administered medications for this visit. PHYSICAL EXAMINATION: GENERAL: No weight loss or fevers RESPIRATORY: Negative for cough CARDIOVASCULAR: Negative for chest pain GI: No nausea, vomiting, or diarrhea. MUSCULOSKELETAL: joint pain or swelling, back pain, and muscle pain ASSESSMENT: Patient is stable. Chronic pain is persistent. Medications are helping Capri Aguilar to have an improved quality of life. Patient compliance with Opioid Contract: not applicable Encounter Diagnosis ICD-10-CM 1. Other chronic pain G89.29 2. Fibromyalgia M79.7 3. 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 Chronic pain syndrome G89.4 6. 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 Migraine variant G43.809 9. Myofascial pain syndrome M79.18 10. POTS (postural orthostatic tachycardia syndrome) G90.A 11. Marfan's syndrome Q87.40 12. 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 The patient is aware of the risks/benefits of the medicatiion, potential for addiction/overdose, and how to safely store and dispose of the medication(s). They will sign the pain agreement the next time they come to the office. The patient understands the goal of our treatment is a reduction in pain and/or an improved level of functioning with activities of daily living. If at any time the patient does not feel the medications are helping them to achieve these goals, the medications may be discontinued. The patient reports a reduction in pain and/or an improved level of functioning with activities of daily living, denies any significant adverse effects, is compliant with the pain management agreement and there are no signs of medication misuse, abuse or diversion; therefore, the medications will be continued. Continue OxyIR liquid Continue Botox q12 weeks - last done on 01/31/23-100% relief Continue Trigger Point Injections - last done on 10/25/22-scheduled for 02/27/23 F/U in 1 month Evelyn Falcon APRN.CNP documented in this encounter [facility] 02-21-2023 Miscellaneous Notes I built the case. It does not appear that steroids are being used. cervical, thoracic, lumbar and rhomboid paraspinal mm. group, trapezius and B/L scalene mm. groups. Please build a case for TPI's that are to be scheduled on Feb 27 at 3:45. It was scheduled as Botox which she just had on 01/31/2023. Ana Harmon February 20, 2023 3:45 PM documented in this encounter [facility] 02-21-2023 Miscellaneous Notes Summary: Virtual Visit Pre Check In Items addressed in this encounter: Virtual Visit Pre Check In Able to close encounter. Nataliya Page MA February 21, 2023 3:24 PM 3:24 PM documented in this encounter [facility] 01-31-2023 Surgical operatio n note Summary: Botox injections FUNCTIONAL ASSESSMENT: See nurses documentation. Pt had 50% benefit from the last injection. MIGRAINE PROGRESS NOTE: Location: Bilateral occipital, bilateral temporal, bilateral frontal region, bilateral cervical paraspinal muscle Frequency: Greater than 180 hours prior to starting Botox injections. Patient had 0 migraine attacks last month with current regimen. Medication trials: Imitrex, Topamax, Maxalt, [id number]-bmoyqcd Excedrin, Tylenol, Advil, Phenergan, patient cannot tolerate caffeine products Injection therapy: Botox only, no infusion therapy trialed Triggers: Weather, stress, certain smells, increase sugar intake Symptoms related to migraine headaches: Photophobia, phonophobia, nausea, vomiting Neurologist: No documentation of neurology evaluation. I have re-assessed this patient immediately before the procedure and the patient is an appropriate candidate for sedation. I have reviewed the Pain Management Medical History sheet. Physician Signature: Morteza Meza DO PROCEDURE: Botox injections. DATE OF SERVICE: January 31, 2023 PREPROCEDURE DIAGNOSIS: Chronic migraine without aura with intractable migraine, 346.71. POSTOPERATIVE DIAGNOSIS: Chronic migraine without aura with intractable migraine, 346.71. ANESTHESIA: None. COMPLICATIONS: None. CONSENT: The risks of the procedure including, but not limited to, bleeding, infection, nerve damage, dysesthesias, headache, abscess formation, failure of the pain to improve, and potential worsening of the pain were explained in full to the patient who verbalizes understanding and wishes to proceed with the Botox injections at this time. Written informed consent was thereby obtained. DESCRIPTION OF PROCEDURE: After written informed consent was obtained as above, the patient was taken to the procedure room and placed in a supine position for the face and temporal region Botox injections. Following the face and temporal region Botox injections, we then placed the patient in a seated position to perform the cervical and occipital Botox injections. The Botox lot number utilized for the face at the temporal region was [id number]. The expiration date is July of 2025. The Botox lot number utilized for the cervical and occipital regions was [id number].The expiration date is also the same of July 2025. Botox was reconstituted to a concentration of 5 units per 0.1 cc. The following injections were made using a 25-gauge, 38 mm needle: 1. 10 units divided in 2 sites to the stadium attendant muscles. 2. 5 units in 1 site to the procerus muscle. 3. 15 units divided in 4 sites to the frontalis muscles. 4. 47 units divided in 8 sites to the temporalis muscles. 5. 123 units divided in 6 sites to the occipitalis muscles. The total Botox dose was 200 units divided in 21 sites. The needle was withdrawn intact. Hemostasis was maintained. The patient tolerated the procedure well without any complications noted. The patient was given written instructions to follow back up in the office in 4-6 weeks for further plan of care and overall evaluation. The documentation for this encounter was entered by Renetta Guajardo medical education specialist, for Dr. Morteza Meza on January 31, 2023. I, Dr. Morteza Meza, personally performed the services described in this documentation. All medical record entries made by the scribe were at my direction and in my presence. I have reviewed the chart and discharge instructions and agree that the record reflects my personal performance and is accurate and complete. Electronically Signed: Dr. Meza. January 31, 2023. documented in this encounter [facility] 01-23-2023 Note HNO ID: [id number] Author: Demian Formna APRN.VISHAL Service: ? Author Type: Nurse Practitioner Type: Progress Notes Filed: 01/23/2023 3:52 PM Note Text: This video visit was performed via [employer] video visit. Patient consented to receive health care services via virtual visit for this encounter Provider Location: Non-[facility] Patient Location: Patient Home or Place of Residence I have communicated my name and active licensure. The patient's identity and physical location were verified at the time of this visit. Either the patient or their legal compliance representative has been informed of the risks and benefits of -- and alternatives to -- treatment through a remote evaluation and consents to proceed with the evaluation remotely. Chief Complaint: Pain History of Present Illness: Capri Aguilar is a 47 year old year old female being seen at [facility] for a evaluation and/or management of her chronic pain. The patient was last seen virtually on 12/19/2022. She states that since the last visit symptoms have been stable. Her medical history has not changed and she denies any hospital stays or ER visits. Pain Location: generalized pain, migraines, daily tension headaches Pain Scale: 8 on 0-10 scale per patient Pain Character: aching and throbbing Timing: occurs constantly Radiation: all over Patient Reports numbness and tingling below knees and elbows bilaterally The pain is exacerbated by activity The pain is mitigated by Trigger Point Injections, Botox injections, medications Symptoms interfere with physical activity, walking and social activities. History of Falls: None in the past 3 months She is currently prescribed oxycodone from our office. The patient states the last dose of oxycodone was taken this afternoon. The medications are partially effective. She could not tolerate remeron. Prior pain treatment has included: Botox injections; Trigger Point Injections; IV Lidocaine infusion 05/04/2020 Medication trials: Imitrex, Topamax, nortriptyline, Maxalt, [id number] Excedrin, Tylenol, Advil, Phenergan, patient cannot tolerate caffeine products or muscle relaxants PDMP website checked and validated. The OARRS report has been reviewed and is consistent with the patients medical history and medication intake. Last Opioid agreement effective date: 07/03/2022 Last UDS: Reviewed - No inconsistencies noted. Summary Report Date Value Ref Range Status 08/01/2022 FINAL Final Comment: ====== Opiate Class, MS, Ur RFX Oxycodone Class, MS, Ur RFX ToxAssure Flex 23, Ur ====== Test Result Flag Units Drug Present Oxycodone 57803 ng/mg creat Oxymorphone >97880 ng/mg creat Noroxycodone >79542 ng/mg creat Noroxymorphone 9037 ng/mg creat Sources of oxycodone are scheduled prescription medications. Oxymorphone, noroxycodone, and noroxymorphone are expected metabolites of oxycodone. Oxymorphone is also available as a scheduled prescription medication. ====== Test Result Flag Units Ref Range Creatinine 84 mg/dL >=20 ====== Declared Medications: Medication list was not provided. ====== For clinical consultation, please call . ====== Chronic Pain Functional Assessment Tools Pain Disability Index: Pain Disability Index 10/08/2022 11/25/2022 Family/Home Responsibilities 0 No Disability 0 No Disability Recreation 0 No disability 0 No disability Social Activity 0 No disability 0 No disability Occupation 0 No disability 0 No disability Sexual Behavior 0 No disability 0 No disability Self Care 0 No disability 0 No disability Life Support Activity 0 No disability 0 No disability PDI Score 0 0 Pain Enjoyment of Life and General Activity Scale (0-10): PEG: A Three-Item Scale Assessing Pain Intensity and Interference What number best describes your pain on average in the past week?: 6 (12/17/2022 3:04 PM) What number best describes how, during the past week, pain has interfered with your enjoyment of life?: 0 - Does not interfere (12/17/2022 3:04 PM) What number best describes how, during the past week, pain has interfered with your general activity?: 0 - Does not interfere (12/17/2022 3:04 PM) REVIEW OF SYSTEMS: GENERAL: No weight loss or fevers RESPIRATORY: Negative for cough CARDIOVASCULAR: Negative for chest pain GI: No nausea, vomiting, or diarrhea. MUSCULOSKELETAL: Positive joint pain or swelling, back pain or muscle pain. (more content not included)... [facility] 01-23-2023 History of Presen t illness Narrative This video visit was performed via [employer] video visit. Patient consented to receive health care services via virtual visit for this encounter Provider Location: Non-[facility] Patient Location: Patient Home or Place of Residence I have communicated my name and active licensure. The patient's identity and physical location were verified at the time of this visit. Either the patient or their legal compliance representative has been informed of the risks and benefits of -- and alternatives to -- treatment through a remote evaluation and consents to proceed with the evaluation remotely. Chief Complaint: Pain History of Present Illness: Capri Aguilar is a 47 year old year old female being seen at [facility] for a evaluation and/or management of her chronic pain. The patient was last seen virtually on 12/19/2022. She states that since the last visit symptoms have been stable. Her medical history has not changed and she denies any hospital stays or ER visits. Pain Location: generalized pain, migraines, daily tension headaches Pain Scale: 8 on 0-10 scale per patient Pain Character: aching and throbbing Timing: occurs constantly Radiation: all over Patient Reports numbness and tingling below knees and elbows bilaterally The pain is exacerbated by activity The pain is mitigated by Trigger Point Injections, Botox injections, medications Symptoms interfere with physical activity, walking and social activities. History of Falls: None in the past 3 months She is currently prescribed oxycodone from our office. The patient states the last dose of oxycodone was taken this afternoon. The medications are partially effective. She could not tolerate remeron. Prior pain treatment has included: Botox injections; Trigger Point Injections; IV Lidocaine infusion 05/04/2020 Medication trials: Imitrex, Topamax, nortriptyline, Maxalt, fewi-rxb-gvwfcqw Excedrin, Tylenol, Advil, Phenergan, patient cannot tolerate caffeine products or muscle relaxants PDMP website checked and validated. The OARRS report has been reviewed and is consistent with the patients medical history and medication intake. Last Opioid agreement effective date: 07/03/2022 Last UDS: Reviewed - No inconsistencies noted. Summary Report Date Value Ref Range Status 08/01/2022 FINAL Final Comment: ====== Opiate Class, MS, Ur RFX Oxycodone Class, MS, Ur RFX ToxAssure Flex 23, Ur ====== Test Result Flag Units Drug Present Oxycodone 50367 ng/mg creat Oxymorphone >67481 ng/mg creat Noroxycodone >48622 ng/mg creat Noroxymorphone 9037 ng/mg creat Sources of oxycodone are scheduled prescription medications. Oxymorphone, noroxycodone, and noroxymorphone are expected metabolites of oxycodone. Oxymorphone is also available as a scheduled prescription medication. ====== Test Result Flag Units Ref Range Creatinine 84 mg/dL >=20 ====== Declared Medications: Medication list was not provided. ====== For clinical consultation, please call . ====== Chronic Pain Functional Assessment Tools Pain Disability Index: Pain Disability Index 10/08/2022 11/25/2022 Family/Home Responsibilities 0 No Disability 0 No Disability Recreation 0 No disability 0 No disability Social Activity 0 No disability 0 No disability Occupation 0 No disability 0 No disability Sexual Behavior 0 No disability 0 No disability Self Care 0 No disability 0 No disability Life Support Activity 0 No disability 0 No disability PDI Score 0 0 Pain Enjoyment of Life and General Activity Scale (0-10): PEG: A Three-Item Scale Assessing Pain Intensity and Interference What number best describes your pain on average in the past week?: 6 (12/17/2022 3:04 PM) What number best describes how, during the past week, pain has interfered with your enjoyment of life?: 0 - Does not interfere (12/17/2022 3:04 PM) What number best describes how, during the past week, pain has interfered with your general activity?: 0 - Does not interfere (12/17/2022 3:04 PM) REVIEW OF SYSTEMS: GENERAL: No weight loss or fevers RESPIRATORY: Negative for cough CARDIOVASCULAR: Negative for chest pain GI: No nausea, vomiting, or diarrhea. MUSCULOSKELETAL: Positive joint pain or swelling, back pain or muscle pain. 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 Other acne Persistent vomiting PAST SURGICAL HISTORY Procedure Laterality Date EAR TUBES HX ESOPHAGOGASTRODUODENOSCOPY TRANSORAL DIAGNOSTIC 01/04/03 EGD EXTRACTION, ERUPTED TOOTH OR EXPOSED ROOT (ELEVATION AND/OR FORCEPS REMOVAL) 99 WISODOM TEETH FOOT SURGERY HX HAMMERTOE REVISION, ONE TOE 95, 97 Bialteral/ hammertoe & arches KNEE SURGERY HX MYRINGOTOMY ASPIR&/EUSTACHIAN TUBE NFLTJ ANES 05/20 Myringotomy/tubes PAST SURGICAL HISTORY OF , 04, 03, 01 FOOT, KNEE,ANKLES PAST SURGICAL HISTORY OF 2002 MUSCLE BIOPSY PAST SURGICAL HISTORY OF 1997 CARDIAC SURGERY TONSILLECTOMY & ADENOIDECTOMY <AGE 14 TONSILLECTOMY PRIMARY/SECONDARY <AGE 14 1982 Tonsillectomy FAMILY HISTORY Problem Relation Age of Onset other (CHARCOT MAXIM TOOTH) Mother Stroke Paternal Grandfather Hypertension Paternal Grandfather Heart Paternal Grandfather Breast Cancer Maternal Grandmother Breast Cancer Paternal Grandmother Social History Tobacco Use Smoking status: Never Smokeless tobacco: Never Substance Use Topics Alcohol use: Yes Drug use: No Work Status: on chronic disability Allergies: Cephalexin Unknown Adhesive Hives Fragrances Rash, Hives Morphine Hives Perfumes Unknown Adhesive Current Outpatient Medications Medication Sig oxyCODONE concentrate (ROXICODONE) 20 mg/mL concentrated solution Take 0.5-1 mL by mouth every 4 hours as needed for pain for up to 25 days. Take 0.5-1mL every 4 hours as needed for pain for up to 25 days Do not start before December 27, 2022. nebivolol (BYSTOLIC) 2.5 mg tablet modafinil (PROVIGIL) 100 mg tablet Take 1 tablet by mouth once daily for 30 days. ipratropium bromide (ATROVENT) 42 mcg (0.06 %) nasal spray SPRAY 2 SPRAYS INTO EACH NOSTRIL TWICE A DAY ondansetron (ZOFRAN) 8 mg tablet ondansetron HCl 8 mg tablet TAKE 1 TABLET BY MOUTH THREE TIMES A DAY megestrol (MEGACE) 400 mg/10 mL (40 mg/mL) suspension megestrol 400 mg/10 mL (40 mg/mL) oral suspension TAKE 2 ML TWICE A DAY BY ORAL ROUTE FOR 90 DAYS. ondansetron orally disintegrating (ZOFRAN ODT) 8 mg disintegrating tablet montelukast 10 mg tablet Take 10 mg by mouth daily at bedtime. Take one(1) tablet daily. No current facility-administered medications for this visit. PHYSICAL EXAMINATION: GENERAL: No weight loss or fevers RESPIRATORY: Negative for cough CARDIOVASCULAR: Negative for chest pain GI: No nausea, vomiting, or diarrhea. MUSCULOSKELETAL: joint pain or swelling, back pain, and muscle pain ASSESSMENT: Patient is stable. Chronic pain is persistent. Medications are helping Capri Aguilar to have an improved quality of life. Patient compliance with Opioid Contract: not applicable Encounter Diagnosis ICD-10-CM 1. Other chronic pain G89.29 2. Fibromyalgia M79.7 3. 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 The patient is aware of the risks/benefits of the medicatiion, potential for addiction/overdose, and how to safely store and dispose of the medication(s). They will sign the pain agreement the next time they come to the office. The patient understands the goal of our treatment is a reduction in pain and/or an improved level of functioning with activities of daily living. If at any time the patient does not feel the medications are helping them to achieve these goals, the medications may be discontinued. The patient reports a reduction in pain and/or an improved level of functioning with activities of daily living, denies any significant adverse effects, is compliant with the pain management agreement and there are no signs of medication misuse, abuse or diversion; therefore, the medications will be continued. Continue OxyIR liquid Continue Botox q12 weeks - last done on 11/01/22 pending 01/31/23 Continue Trigger Point Injections - last done on 10/25/22 F/U in 1 month Demian Forman APRN.CNP documented in this encounter [facility] 01-23-2023 Instructions Demian Forman APRN.CNP - 01/23/2023 1:13 PM EDT Order UDS - will collect at procedure Continue OxyIR liquid Continue Botox q12 weeks - last done on 11/01/22 Continue Trigger Point Injections - last done on 10/25/22 She declines further lidocaine infusions F/U in 1 month documented in this encounter [facility] 12-19-2022 Note HNO ID: [id number] Author: Demian Forman APRN.CASING PULLER Service: ? Author Type: Nurse Practitioner Type: Progress Notes Filed: 12/19/2022 3:41 PM Note Text: This video visit was performed via [employer] video visit. Patient consented to receive health care services via virtual visit for this encounter Provider Location: Non-[facility] Patient Location: Patient Home or Place of Residence I have communicated my name and active licensure. The patient's identity and physical location were verified at the time of this visit. Either the patient or their legal compliance representative has been informed of the risks and benefits of -- and alternatives to -- treatment through a remote evaluation and consents to proceed with the evaluation remotely. Chief Complaint: Pain History of Present Illness: Capri Aguilar is a 47 year old year old female being seen at [facility] for a evaluation and/or management of her chronic pain. The patient was last seen virtually on 11/27/2022. She states that since the last visit symptoms have been stable. Her medical history has not changed and she denies any hospital stays or ER visits. Pain Location: generalized pain, migraines, daily tension headaches Pain Scale: 5 on 0-10 scale per patient Pain Character: aching and throbbing Timing: occurs constantly Radiation: all over Patient Reports numbness and tingling below knees and elbows bilaterally The pain is exacerbated by activity The pain is mitigated by Trigger Point Injections, Botox injections, medications Symptoms interfere with physical activity, walking and social activities. History of Falls: None in the past 3 months She is currently prescribed oxycodone from our office. The patient states the last dose of oxycodone was taken this afternoon. The medications are partially effective. She could not tolerate remeron. Prior pain treatment has included: Botox injections; Trigger Point Injections; IV Lidocaine infusion 05/04/2020 Medication trials: Imitrex, Topamax, nortriptyline, Maxalt, [id number] Excedrin, Tylenol, Advil, Phenergan, patient cannot tolerate caffeine products or muscle relaxants PDMP website checked and validated. The OARRS report has been reviewed and is consistent with the patients medical history and medication intake. Last Opioid agreement effective date: 07/03/2022 Last UDS: Reviewed - No inconsistencies noted. Summary Report Date Value Ref Range Status 08/01/2022 FINAL Final Comment: ====== Opiate Class, MS, Ur RFX Oxycodone Class, MS, Ur RFX ToxAssure Flex 23, Ur ====== Test Result Flag Units Drug Present Oxycodone 79150 ng/mg creat Oxymorphone >05089 ng/mg creat Noroxycodone >38038 ng/mg creat Noroxymorphone 9037 ng/mg creat Sources of oxycodone are scheduled prescription medications. Oxymorphone, noroxycodone, and noroxymorphone are expected metabolites of oxycodone. Oxymorphone is also available as a scheduled prescription medication. ====== Test Result Flag Units Ref Range Creatinine 84 mg/dL >=20 ====== Declared Medications: Medication list was not provided. ====== For clinical consultation, please call . ====== Chronic Pain Functional Assessment Tools Pain Disability Index: Pain Disability Index 10/08/2022 11/25/2022 Family/Home Responsibilities 0 No Disability 0 No Disability Recreation 0 No disability 0 No disability Social Activity 0 No disability 0 No disability Occupation 0 No disability 0 No disability Sexual Behavior 0 No disability 0 No disability Self Care 0 No disability 0 No disability Life Support Activity 0 No disability 0 No disability PDI Score 0 0 Pain Enjoyment of Life and General Activity Scale (0-10): PEG: A Three-Item Scale Assessing Pain Intensity and Interference What number best describes your pain on average in the past week?: 6 (12/17/2022 3:04 PM) What number best describes how, during the past week, pain has interfered with your enjoyment of life?: 0 - Does not interfere (12/17/2022 3:04 PM) What number best describes how, during the past week, pain has interfered with your general activity?: 0 - Does not interfere (12/17/2022 3:04 PM) REVIEW OF SYSTEMS: GENERAL: No weight loss or fevers RESPIRATORY: Negative for cough CARDIOVASCULAR: Negative for chest pain GI: No nausea, vomiting, or diarrhea. MUSCULOSKELETAL: Positive joint pain or swelling, back pain or muscle pain. (more content not included)... [facility] 12-19-2022 History of Presen t illness Narrative This video visit was performed via [employer] video visit. Patient consented to receive health care services via virtual visit for this encounter Provider Location: Non-[facility] Patient Location: Patient Home or Place of Residence I have communicated my name and active licensure. The patient's identity and physical location were verified at the time of this visit. Either the patient or their legal compliance representative has been informed of the risks and benefits of -- and alternatives to -- treatment through a remote evaluation and consents to proceed with the evaluation remotely. Chief Complaint: Pain History of Present Illness: Capri Aguilar is a 47 year old year old female being seen at [facility] for a evaluation and/or management of her chronic pain. The patient was last seen virtually on 11/27/2022. She states that since the last visit symptoms have been stable. Her medical history has not changed and she denies any hospital stays or ER visits. Pain Location: generalized pain, migraines, daily tension headaches Pain Scale: 5 on 0-10 scale per patient Pain Character: aching and throbbing Timing: occurs constantly Radiation: all over Patient Reports numbness and tingling below knees and elbows bilaterally The pain is exacerbated by activity The pain is mitigated by Trigger Point Injections, Botox injections, medications Symptoms interfere with physical activity, walking and social activities. History of Falls: None in the past 3 months She is currently prescribed oxycodone from our office. The patient states the last dose of oxycodone was taken this afternoon. The medications are partially effective. She could not tolerate remeron. Prior pain treatment has included: Botox injections; Trigger Point Injections; IV Lidocaine infusion 05/04/2020 Medication trials: Imitrex, Topamax, nortriptyline, Maxalt, [id number] Excedrin, Tylenol, Advil, Phenergan, patient cannot tolerate caffeine products or muscle relaxants PDMP website checked and validated. The OARRS report has been reviewed and is consistent with the patients medical history and medication intake. Last Opioid agreement effective date: 07/03/2022 Last UDS: Reviewed - No inconsistencies noted. Summary Report Date Value Ref Range Status 08/01/2022 FINAL Final Comment: ====== Opiate Class, MS, Ur RFX Oxycodone Class, MS, Ur RFX ToxAssure Flex 23, Ur ====== Test Result Flag Units Drug Present Oxycodone 23729 ng/mg creat Oxymorphone >83815 ng/mg creat Noroxycodone >41442 ng/mg creat Noroxymorphone 9037 ng/mg creat Sources of oxycodone are scheduled prescription medications. Oxymorphone, noroxycodone, and noroxymorphone are expected metabolites of oxycodone. Oxymorphone is also available as a scheduled prescription medication. ====== Test Result Flag Units Ref Range Creatinine 84 mg/dL >=20 ====== Declared Medications: Medication list was not provided. ====== For clinical consultation, please call . ====== Chronic Pain Functional Assessment Tools Pain Disability Index: Pain Disability Index 10/08/2022 11/25/2022 Family/Home Responsibilities 0 No Disability 0 No Disability Recreation 0 No disability 0 No disability Social Activity 0 No disability 0 No disability Occupation 0 No disability 0 No disability Sexual Behavior 0 No disability 0 No disability Self Care 0 No disability 0 No disability Life Support Activity 0 No disability 0 No disability PDI Score 0 0 Pain Enjoyment of Life and General Activity Scale (0-10): PEG: A Three-Item Scale Assessing Pain Intensity and Interference What number best describes your pain on average in the past week?: 6 (12/17/2022 3:04 PM) What number best describes how, during the past week, pain has interfered with your enjoyment of life?: 0 - Does not interfere (12/17/2022 3:04 PM) What number best describes how, during the past week, pain has interfered with your general activity?: 0 - Does not interfere (12/17/2022 3:04 PM) REVIEW OF SYSTEMS: GENERAL: No weight loss or fevers RESPIRATORY: Negative for cough CARDIOVASCULAR: Negative for chest pain GI: No nausea, vomiting, or diarrhea. MUSCULOSKELETAL: Positive joint pain or swelling, back pain or muscle pain. 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 Other acne Persistent vomiting PAST SURGICAL HISTORY Procedure Laterality Date EAR TUBES HX ESOPHAGOGASTRODUODENOSCOPY TRANSORAL DIAGNOSTIC 01/04/03 EGD EXTRACTION, ERUPTED TOOTH OR EXPOSED ROOT (ELEVATION AND/OR FORCEPS REMOVAL) 99 WISODOM TEETH FOOT SURGERY HX HAMMERTOE REVISION, ONE TOE 95, 97 Bialteral/ hammertoe & arches KNEE SURGERY HX MYRINGOTOMY ASPIR&/EUSTACHIAN TUBE NFLTJ ANES 05/20 Myringotomy/tubes PAST SURGICAL HISTORY OF , , , FOOT, KNEE,ANKLES PAST SURGICAL HISTORY OF 2002 MUSCLE BIOPSY PAST SURGICAL HISTORY OF 1997 CARDIAC SURGERY TONSILLECTOMY & ADENOIDECTOMY <AGE 14 TONSILLECTOMY PRIMARY/SECONDARY <AGE 14 1982 Tonsillectomy FAMILY HISTORY Problem Relation Age of Onset other (CHARCOT MAXIM TOOTH) Mother Stroke Paternal Grandfather Hypertension Paternal Grandfather Heart Paternal Grandfather Breast Cancer Maternal Grandmother Breast Cancer Paternal Grandmother Social History Tobacco Use Smoking status: Never Smokeless tobacco: Never Substance Use Topics Alcohol use: Yes Drug use: No Work Status: on chronic disability Allergies: Cephalexin Unknown Adhesive Hives Fragrances Rash, Hives Morphine Hives Perfumes Unknown Adhesive Current Outpatient Medications Medication Sig mirtazapine (REMERON) 15 mg tablet Take 1 tablet by mouth daily at bedtime. oxyCODONE concentrate (ROXICODONE) 20 mg/mL concentrated solution Take 0.5-1 mL by mouth every 4 hours as needed for pain for up to 25 days. Take 0.5-1mL every 4 hours as needed for pain for up to 25 days nebivolol (BYSTOLIC) 2.5 mg tablet modafinil (PROVIGIL) 100 mg tablet Take 1 tablet by mouth once daily for 30 days. ipratropium bromide (ATROVENT) 42 mcg (0.06 %) nasal spray SPRAY 2 SPRAYS INTO EACH NOSTRIL TWICE A DAY ondansetron (ZOFRAN) 8 mg tablet ondansetron HCl 8 mg tablet TAKE 1 TABLET BY MOUTH THREE TIMES A DAY megestrol (MEGACE) 400 mg/10 mL (40 mg/mL) suspension megestrol 400 mg/10 mL (40 mg/mL) oral suspension TAKE 2 ML TWICE A DAY BY ORAL ROUTE FOR 90 DAYS. ondansetron orally disintegrating (ZOFRAN ODT) 8 mg disintegrating tablet montelukast 10 mg tablet Take 10 mg by mouth daily at bedtime. Take one(1) tablet daily. No current facility-administered medications for this visit. PHYSICAL EXAMINATION: GENERAL: No weight loss or fevers RESPIRATORY: Negative for cough CARDIOVASCULAR: Negative for chest pain GI: No nausea, vomiting, or diarrhea. MUSCULOSKELETAL: joint pain or swelling, back pain, and muscle pain ASSESSMENT: Patient is stable. Chronic pain is persistent. Medications are helping Capri Aguilar to have an improved quality of life. Patient compliance with Opioid Contract: not applicable Encounter Diagnosis ICD-10-CM 1. Other chronic pain G89.29 2. Fibromyalgia M79.7 3. 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 shelter (current) use of opiate analgesic Z79.891 Plan: The pain management agreement was reviewed with the patient. The patient is aware of the risks/benefits of the medicatiion, potential for addiction/overdose, and how to safely store and dispose of the medication(s). They will sign the pain agreement the next time they come to the office. The patient understands the goal of our treatment is a reduction in pain and/or an improved level of functioning with activities of daily living. If at any time the patient does not feel the medications are helping them to achieve these goals, the medications may be discontinued. The patient reports a reduction in pain and/or an improved level of functioning with activities of daily living, denies any significant adverse effects, is compliant with the pain management agreement and there are no signs of medication misuse, abuse or diversion; therefore, the medications will be continued. Continue OxyIR liquid Continue Botox q12 weeks - last done on 11/01/22 Continue Trigger Point Injections - last done on 10/25/22 She declines further lidocaine infusions Stop remeron F/U in 1 month Demian Forman APRN.CNP documented in this encounter [facility] 12-19-2022 Instructions Demian Forman APRN.CNP - 12/19/2022 12:53 PM EDT Continue OxyIR liquid Continue Botox q12 weeks - last done on 11/01/22 Continue Trigger Point Injections - last done on 10/25/22 She declines further lidocaine infusions Stop remeron F/U in 1 month documented in this encounter [facility] 11-27-2022 Note HNO ID: [id number] Author: Demian Forman APRN.CNP Service: ? Author Type: Nurse Practitioner Type: Progress Notes Filed: 11/27/2022 3:02 PM Note Text: This video visit was performed via [employer] video visit. Patient consented to receive health care services via virtual visit for this encounter Provider Location: Non-[facility] Patient Location: Patient Home or Place of Residence I have communicated my name and active licensure. The patient's identity and physical location were verified at the time of this visit. Either the patient or their legal compliance representative has been informed of the risks and benefits of -- and alternatives to -- treatment through a remote evaluation and consents to proceed with the evaluation remotely. Chief Complaint: Pain History of Present Illness: Capri Aguilar is a 47 year old year old female being seen at [facility] for a evaluation and/or management of her chronic pain. The patient was last seen virtually on 11/02/2022. She states that since the last visit symptoms have been stable. 0 hours of migraines last month, compared to over 100 hours monthly prior to starting botox. She is still having daily tension headaches. Her medical history has not changed and she denies any hospital stays or ER visits. Pain Location: generalized pain, migraines, daily tension headaches Pain Scale: 6 on 0-10 scale per patient Pain Character: aching and throbbing Timing: occurs constantly Radiation: all over Patient Reports numbness and tingling below knees and elbows bilaterally The pain is exacerbated by activity The pain is mitigated by Trigger Point Injections, Botox injections, medications Symptoms interfere with physical activity, walking and social activities. History of Falls: None in the past 3 months She is currently prescribed oxycodone from our office. The patient states the last dose of oxycodone was taken this afternoon. The medications are partially effective. Prior pain treatment has included: Botox injections; Trigger Point Injections; IV Lidocaine infusion 05/04/2020 Medication trials: Imitrex, Topamax, nortriptyline, Maxalt, [id number] Excedrin, Tylenol, Advil, Phenergan, patient cannot tolerate caffeine products or muscle relaxants PDMP website checked and validated. The OARRS report has been reviewed and is consistent with the patients medical history and medication intake. Last Opioid agreement effective date: 07/03/2022 Last UDS: Reviewed - No inconsistencies noted. Summary Report Date Value Ref Range Status 08/01/2022 FINAL Final Comment: ====== Opiate Class, MS, Ur RFX Oxycodone Class, MS, Ur RFX ToxAssure Flex 23, Ur ====== Test Result Flag Units Drug Present Oxycodone 87534 ng/mg creat Oxymorphone >35298 ng/mg creat Noroxycodone >78024 ng/mg creat Noroxymorphone 9037 ng/mg creat Sources of oxycodone are scheduled prescription medications. Oxymorphone, noroxycodone, and noroxymorphone are expected metabolites of oxycodone. Oxymorphone is also available as a scheduled prescription medication. ====== Test Result Flag Units Ref Range Creatinine 84 mg/dL >=20 ====== Declared Medications: Medication list was not provided. ====== For clinical consultation, please call . ====== Chronic Pain Functional Assessment Tools Pain Disability Index: Pain Disability Index 10/08/2022 11/25/2022 Family/Home Responsibilities 0 No Disability 0 No Disability Recreation 0 No disability 0 No disability Social Activity 0 No disability 0 No disability Occupation 0 No disability 0 No disability Sexual Behavior 0 No disability 0 No disability Self Care 0 No disability 0 No disability Life Support Activity 0 No disability 0 No disability PDI Score 0 0 Pain Enjoyment of Life and General Activity Scale (0-10): PEG: A Three-Item Scale Assessing Pain Intensity and Interference What number best describes your pain on average in the past week?: 6 (11/25/2022 10:16 PM) What number best describes how, during the past week, pain has interfered with your enjoyment of life?: 0 - Does not interfere (11/25/2022 10:16 PM) What number best describes how, during the past week, pain has interfered with your general activity?: 0 - Does not interfere (11/25/2022 10:16 PM) REVIEW OF SYSTEMS: GENERAL: No weight loss or fevers RESPIRATORY: Negative for cough CARDIOVASCULAR: Negative for chest pain GI: No nausea, vomiting, or di (more content not included)... [facility] 11-27-2022 History of Presen t illness Narrative This video visit was performed via [employer] video visit. Patient consented to receive health care services via virtual visit for this encounter Provider Location: Non-[facility] Patient Location: Patient Home or Place of Residence I have communicated my name and active licensure. The patient's identity and physical location were verified at the time of this visit. Either the patient or their legal compliance representative has been informed of the risks and benefits of -- and alternatives to -- treatment through a remote evaluation and consents to proceed with the evaluation remotely. Chief Complaint: Pain History of Present Illness: Capri Aguilar is a 47 year old year old female being seen at [facility] for a evaluation and/or management of her chronic pain. The patient was last seen virtually on 11/02/2022. She states that since the last visit symptoms have been stable. 0 hours of migraines last month, compared to over 100 hours monthly prior to starting botox. She is still having daily tension headaches. Her medical history has not changed and she denies any hospital stays or ER visits. Pain Location: generalized pain, migraines, daily tension headaches Pain Scale: 6 on 0-10 scale per patient Pain Character: aching and throbbing Timing: occurs constantly Radiation: all over Patient Reports numbness and tingling below knees and elbows bilaterally The pain is exacerbated by activity The pain is mitigated by Trigger Point Injections, Botox injections, medications Symptoms interfere with physical activity, walking and social activities. History of Falls: None in the past 3 months She is currently prescribed oxycodone from our office. The patient states the last dose of oxycodone was taken this afternoon. The medications are partially effective. Prior pain treatment has included: Botox injections; Trigger Point Injections; IV Lidocaine infusion 05/04/2020 Medication trials: Imitrex, Topamax, nortriptyline, Maxalt, oexi-dxh-zsyzinn Excedrin, Tylenol, Advil, Phenergan, patient cannot tolerate caffeine products or muscle relaxants PDMP website checked and validated. The OARRS report has been reviewed and is consistent with the patients medical history and medication intake. Last Opioid agreement effective date: 07/03/2022 Last UDS: Reviewed - No inconsistencies noted. Summary Report Date Value Ref Range Status 08/01/2022 FINAL Final Comment: ====== Opiate Class, MS, Ur RFX Oxycodone Class, MS, Ur RFX ToxAssure Flex 23, Ur ====== Test Result Flag Units Drug Present Oxycodone 90438 ng/mg creat Oxymorphone >32681 ng/mg creat Noroxycodone >67034 ng/mg creat Noroxymorphone 9037 ng/mg creat Sources of oxycodone are scheduled prescription medications. Oxymorphone, noroxycodone, and noroxymorphone are expected metabolites of oxycodone. Oxymorphone is also available as a scheduled prescription medication. ====== Test Result Flag Units Ref Range Creatinine 84 mg/dL >=20 ====== Declared Medications: Medication list was not provided. ====== For clinical consultation, please call . ====== Chronic Pain Functional Assessment Tools Pain Disability Index: Pain Disability Index 10/08/2022 11/25/2022 Family/Home Responsibilities 0 No Disability 0 No Disability Recreation 0 No disability 0 No disability Social Activity 0 No disability 0 No disability Occupation 0 No disability 0 No disability Sexual Behavior 0 No disability 0 No disability Self Care 0 No disability 0 No disability Life Support Activity 0 No disability 0 No disability PDI Score 0 0 Pain Enjoyment of Life and General Activity Scale (0-10): PEG: A Three-Item Scale Assessing Pain Intensity and Interference What number best describes your pain on average in the past week?: 6 (11/25/2022 10:16 PM) What number best describes how, during the past week, pain has interfered with your enjoyment of life?: 0 - Does not interfere (11/25/2022 10:16 PM) What number best describes how, during the past week, pain has interfered with your general activity?: 0 - Does not interfere (11/25/2022 10:16 PM) REVIEW OF SYSTEMS: GENERAL: No weight loss or fevers RESPIRATORY: Negative for cough CARDIOVASCULAR: Negative for chest pain GI: No nausea, vomiting, or diarrhea. MUSCULOSKELETAL: Positive joint pain or swelling, back pain or muscle pain. 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 Other acne Persistent vomiting PAST SURGICAL HISTORY Procedure Laterality Date EAR TUBES HX ESOPHAGOGASTRODUODENOSCOPY TRANSORAL DIAGNOSTIC 01/04/03 EGD EXTRACTION, ERUPTED TOOTH OR EXPOSED ROOT (ELEVATION AND/OR FORCEPS REMOVAL) 99 WISODOM TEETH FOOT SURGERY HX HAMMERTOE REVISION, ONE TOE 95, 97 Bialteral/ hammertoe & arches KNEE SURGERY HX MYRINGOTOMY ASPIR&/EUSTACHIAN TUBE NFLTJ ANES 05/20 Myringotomy/tubes PAST SURGICAL HISTORY OF , , , FOOT, KNEE,ANKLES PAST SURGICAL HISTORY OF 2002 MUSCLE BIOPSY PAST SURGICAL HISTORY OF 1997 CARDIAC SURGERY TONSILLECTOMY & ADENOIDECTOMY <AGE 14 TONSILLECTOMY PRIMARY/SECONDARY <AGE 14 1982 Tonsillectomy FAMILY HISTORY Problem Relation Age of Onset other (CHARCOT MAXIM TOOTH) Mother Stroke Paternal Grandfather Hypertension Paternal Grandfather Heart Paternal Grandfather Breast Cancer Maternal Grandmother Breast Cancer Paternal Grandmother Social History Tobacco Use Smoking status: Never Smokeless tobacco: Never Substance Use Topics Alcohol use: Yes Drug use: No Work Status: on chronic disability Allergies: Cephalexin Unknown Adhesive Hives Fragrances Rash, Hives Morphine Hives Perfumes Unknown Adhesive Current Outpatient Medications Medication Sig erenumab-aooe (AIMOVIG AUTOINJECTOR) 70 mg/mL auto-injector Inject 1 mL subcutaneously once every month. Do not shake. oxyCODONE concentrate (ROXICODONE) 20 mg/mL concentrated solution Take 0.5-1 mL by mouth every 4 hours as needed for pain for up to 25 days. Take 0.5-1mL every 4 hours as needed for pain for up to 25 days nebivolol (BYSTOLIC) 2.5 mg tablet modafinil (PROVIGIL) 100 mg tablet Take 1 tablet by mouth once daily for 30 days. ipratropium bromide (ATROVENT) 42 mcg (0.06 %) nasal spray SPRAY 2 SPRAYS INTO EACH NOSTRIL TWICE A DAY ondansetron (ZOFRAN) 8 mg tablet ondansetron HCl 8 mg tablet TAKE 1 TABLET BY MOUTH THREE TIMES A DAY megestrol (MEGACE) 400 mg/10 mL (40 mg/mL) suspension megestrol 400 mg/10 mL (40 mg/mL) oral suspension TAKE 2 ML TWICE A DAY BY ORAL ROUTE FOR 90 DAYS. ondansetron orally disintegrating (ZOFRAN ODT) 8 mg disintegrating tablet montelukast 10 mg tablet Take 10 mg by mouth daily at bedtime. Take one(1) tablet daily. No current facility-administered medications for this visit. PHYSICAL EXAMINATION: GENERAL: No weight loss or fevers RESPIRATORY: Negative for cough CARDIOVASCULAR: Negative for chest pain GI: No nausea, vomiting, or diarrhea. MUSCULOSKELETAL: joint pain or swelling, back pain, and muscle pain ASSESSMENT: Patient is stable. Chronic pain is persistent. Medications are helping Capri Aguilar to have an improved quality of life. Patient compliance with Opioid Contract: not applicable Encounter Diagnosis ICD-10-CM 1. Other chronic pain G89.29 2. Fibromyalgia M79.7 3. 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 Migraine variant G43.809 6. shelter (current) use of opiate analgesic Z79.891 Plan: The pain management agreement was reviewed with the patient. The patient is aware of the risks/benefits of the medicatiion, potential for addiction/overdose, and how to safely store and dispose of the medication(s). They will sign the pain agreement the next time they come to the office. The patient understands the goal of our treatment is a reduction in pain and/or an improved level of functioning with activities of daily living. If at any time the patient does not feel the medications are helping them to achieve these goals, the medications may be discontinued. The patient reports a reduction in pain and/or an improved level of functioning with activities of daily living, denies any significant adverse effects, is compliant with the pain management agreement and there are no signs of medication misuse, abuse or diversion; therefore, the medications will be continued. Continue OxyIR liquid Continue Botox q12 weeks - last done on 11/01/22 Continue Trigger Point Injections - last done on 10/25/22 She declines further lidocaine infusions Trial of remeron F/U in 1 month Demian Forman APRN.CNP documented in this encounter [facility] 11-27-2022 Instructions Demian Forman APRN.CNP - 11/27/2022 12:57 PM EDT Continue OxyIR liquid Continue Botox q12 weeks - last done on 11/01/22 Continue Trigger Point Injections - last done on 10/25/22 She declines further lidocaine infusions Trial of remeron F/U in 1 month documented in this encounter [facility] 11-02-2022 Note HNO ID: [id number] Author: Demian Forman APRN.CNP Service: ? Author Type: Nurse Practitioner Type: Progress Notes Filed: 11/02/2022 7:53 AM Note Text: This video visit was performed via [employer] video visit. Patient consented to receive health care services via virtual visit for this encounter Provider Location: Non-[facility] Patient Location: Patient Home or Place of Residence I have communicated my name and active licensure. The patient's identity and physical location were verified at the time of this visit. Either the patient or their legal compliance representative has been informed of the risks and benefits of -- and alternatives to -- treatment through a remote evaluation and consents to proceed with the evaluation remotely. Chief Complaint: Pain History of Present Illness: Capri Aguilar is a 47 year old year old female being seen at [facility] for a evaluation and/or management of her chronic pain. The patient was last seen virtually on 10/10/2022. She states that since the last visit symptoms have been stable. 0 hours of migraines last month, compared to over 100 hours prior to starting botox. Her medical history has not changed and she denies any hospital stays or ER visits. Pain Location: generalized pain, migraines Pain Scale: 4 on 0-10 scale per patient Pain Character: aching and throbbing Timing: occurs constantly Radiation: all over Patient Reports numbness and tingling below knees and elbows bilaterally The pain is exacerbated by activity The pain is mitigated by Trigger Point Injections, Botox injections, medications Symptoms interfere with physical activity, walking and social activities. History of Falls: None in the past 3 months She is currently prescribed oxycodone from our office. The patient states the last dose of oxycodone was taken this afternoon. The medications are partially effective. Prior pain treatment has included: Botox injections; Trigger Point Injections; IV Lidocaine infusion 05/04/2020 PDMP website checked and validated. The OARRS report has been reviewed and is consistent with the patients medical history and medication intake. Last Opioid agreement effective date: 07/03/2022 Last UDS: Reviewed - No inconsistencies noted. Summary Report Date Value Ref Range Status 08/01/2022 FINAL Final Comment: ====== Opiate Class, MS, Ur RFX Oxycodone Class, MS, Ur RFX ToxAssure Flex 23, Ur ====== Test Result Flag Units Drug Present Oxycodone 84042 ng/mg creat Oxymorphone >00545 ng/mg creat Noroxycodone >07644 ng/mg creat Noroxymorphone 9037 ng/mg creat Sources of oxycodone are scheduled prescription medications. Oxymorphone, noroxycodone, and noroxymorphone are expected metabolites of oxycodone. Oxymorphone is also available as a scheduled prescription medication. ====== Test Result Flag Units Ref Range Creatinine 84 mg/dL >=20 ====== Declared Medications: Medication list was not provided. ====== For clinical consultation, please call . ====== Chronic Pain Functional Assessment Tools Pain Disability Index: Pain Disability Index 08/20/2022 10/08/2022 Family/Home Responsibilities 0 No Disability 0 No Disability Recreation 0 No disability 0 No disability Social Activity 0 No disability 0 No disability Occupation 0 No disability 0 No disability Sexual Behavior 0 No disability 0 No disability Self Care 0 No disability 0 No disability Life Support Activity 0 No disability 0 No disability PDI Score 0 0 Pain Enjoyment of Life and General Activity Scale (0-10): PEG: A Three-Item Scale Assessing Pain Intensity and Interference What number best describes your pain on average in the past week?: 8 (10/30/2022 10:06 PM) What number best describes how, during the past week, pain has interfered with your enjoyment of life?: 0 - Does not interfere (10/30/2022 10:06 PM) What number best describes how, during the past week, pain has interfered with your general activity?: 0 - Does not interfere (10/30/2022 10:06 PM) REVIEW OF SYSTEMS: GENERAL: No weight loss or fevers RESPIRATORY: Negative for cough CARDIOVASCULAR: Negative for chest pain GI: No nausea, vomiting, or diarrhea. MUSCULOSKELETAL: Positive joint pain or swelling, back pain or muscle pain. PAST MEDICAL HISTORY Diagnosis Date Acute gastritis without mention of hemorrhage TIARRA Parks (more content not included)... [facility] 2022 Miscellaneous Notes PLease collect UDS at [facility]. Thanks documented in this encounter [facility] 10-10-2022 Note HNO ID: [id number] Author: Demian Forman APRN.CNP Service: ? Author Type: Nurse Practitioner Type: Progress Notes Filed: 10/10/2022 3:41 PM Note Text: This video visit was performed via [employer] video visit. Patient consented to receive health care services via virtual visit for this encounter Provider Location: Non-[facility] Patient Location: Patient Home or Place of Residence I have communicated my name and active licensure. The patient's identity and physical location were verified at the time of this visit. Either the patient or their legal compliance representative has been informed of the risks and benefits of -- and alternatives to -- treatment through a remote evaluation and consents to proceed with the evaluation remotely. Chief Complaint: Pain History of Present Illness: Capri Aguilar is a 46 year old year old female being seen at [facility] for a evaluation and/or management of her chronic pain. The patient was last seen virtually on 09/12/2022. She states that since the last visit symptoms have been stable. Her medical history has not changed and she denies any hospital stays or ER visits. She had 0 migraines last month compared to the 180 hours prior to starting botox. Her medical history has not changed and she denies any hospital stays or ER visits. Pain Location: generalized pain, migraines Pain Scale: 7 on 0-10 scale per patient Pain Character: aching and throbbing Timing: occurs constantly Radiation: all over Patient Reports numbness and tingling below knees and elbows bilaterally The pain is exacerbated by activity The pain is mitigated by Trigger Point Injections, Botox injections, medications Symptoms interfere with physical activity, walking and social activities. History of Falls: None in the past 3 months She is currently prescribed oxycodone from our office. The patient states the last dose of oxycodone was taken this afternoon. The medications are partially effective. Prior pain treatment has included: Botox injections; Trigger Point Injections; IV Lidocaine infusion 05/04/2020 PDMP website checked and validated. The OARRS report has been reviewed and is consistent with the patients medical history and medication intake. Last Opioid agreement effective date: 07/03/2022 Last UDS: Reviewed - No inconsistencies noted. Summary Report Date Value Ref Range Status 08/01/2022 FINAL Final Comment: ====== Opiate Class, MS, Ur RFX Oxycodone Class, MS, Ur RFX ToxAssure Flex 23, Ur ====== Test Result Flag Units Drug Present Oxycodone 22551 ng/mg creat Oxymorphone >22599 ng/mg creat Noroxycodone >16427 ng/mg creat Noroxymorphone 9037 ng/mg creat Sources of oxycodone are scheduled prescription medications. Oxymorphone, noroxycodone, and noroxymorphone are expected metabolites of oxycodone. Oxymorphone is also available as a scheduled prescription medication. ====== Test Result Flag Units Ref Range Creatinine 84 mg/dL >=20 ====== Declared Medications: Medication list was not provided. ====== For clinical consultation, please call . ====== Chronic Pain Functional Assessment Tools Pain Disability Index: Pain Disability Index 08/20/2022 10/08/2022 Family/Home Responsibilities 0 No Disability 0 No Disability Recreation 0 No disability 0 No disability Social Activity 0 No disability 0 No disability Occupation 0 No disability 0 No disability Sexual Behavior 0 No disability 0 No disability Self Care 0 No disability 0 No disability Life Support Activity 0 No disability 0 No disability PDI Score 0 0 Pain Enjoyment of Life and General Activity Scale (0-10): PEG: A Three-Item Scale Assessing Pain Intensity and Interference What number best describes your pain on average in the past week?: 6 (10/08/2022 4:53 PM) What number best describes how, during the past week, pain has interfered with your enjoyment of life?: 0 - Does not interfere (10/08/2022 4:53 PM) What number best describes how, during the past week, pain has interfered with your general activity?: 0 - Does not interfere (10/08/2022 4:53 PM) REVIEW OF SYSTEMS: GENERAL: No weight loss or fevers RESPIRATORY: Negative for cough CARDIOVASCULAR: Negative for chest pain GI: No nausea, vomiting, or diarrhea. MUSCULOSKELETAL: Positive joint pain or swelling, back pain or muscle pain. PAST MEDICAL HISTORY D (more content not included)... [facility] 10-10-2022 History of Presen t illness Narrative This video visit was performed via [employer] video visit. Patient consented to receive health care services via virtual visit for this encounter Provider Location: Non-[facility] Patient Location: Patient Home or Place of Residence I have communicated my name and active licensure. The patient's identity and physical location were verified at the time of this visit. Either the patient or their legal compliance representative has been informed of the risks and benefits of -- and alternatives to -- treatment through a remote evaluation and consents to proceed with the evaluation remotely. Chief Complaint: Pain History of Present Illness: Capri Aguilar is a 46 year old year old female being seen at [facility] for a evaluation and/or management of her chronic pain. The patient was last seen virtually on 09/12/2022. She states that since the last visit symptoms have been stable. Her medical history has not changed and she denies any hospital stays or ER visits. She had 0 migraines last month compared to the 180 hours prior to starting botox. Her medical history has not changed and she denies any hospital stays or ER visits. Pain Location: generalized pain, migraines Pain Scale: 7 on 0-10 scale per patient Pain Character: aching and throbbing Timing: occurs constantly Radiation: all over Patient Reports numbness and tingling below knees and elbows bilaterally The pain is exacerbated by activity The pain is mitigated by Trigger Point Injections, Botox injections, medications Symptoms interfere with physical activity, walking and social activities. History of Falls: None in the past 3 months She is currently prescribed oxycodone from our office. The patient states the last dose of oxycodone was taken this afternoon. The medications are partially effective. Prior pain treatment has included: Botox injections; Trigger Point Injections; IV Lidocaine infusion 05/04/2020 PDMP website checked and validated. The OARRS report has been reviewed and is consistent with the patients medical history and medication intake. Last Opioid agreement effective date: 07/03/2022 Last UDS: Reviewed - No inconsistencies noted. Summary Report Date Value Ref Range Status 08/01/2022 FINAL Final Comment: ====== Opiate Class, MS, Ur RFX Oxycodone Class, MS, Ur RFX ToxAssure Flex 23, Ur ====== Test Result Flag Units Drug Present Oxycodone 22568 ng/mg creat Oxymorphone >36037 ng/mg creat Noroxycodone >87829 ng/mg creat Noroxymorphone 9037 ng/mg creat Sources of oxycodone are scheduled prescription medications. Oxymorphone, noroxycodone, and noroxymorphone are expected metabolites of oxycodone. Oxymorphone is also available as a scheduled prescription medication. ====== Test Result Flag Units Ref Range Creatinine 84 mg/dL >=20 ====== Declared Medications: Medication list was not provided. ====== For clinical consultation, please call . ====== Chronic Pain Functional Assessment Tools Pain Disability Index: Pain Disability Index 08/20/2022 10/08/2022 Family/Home Responsibilities 0 No Disability 0 No Disability Recreation 0 No disability 0 No disability Social Activity 0 No disability 0 No disability Occupation 0 No disability 0 No disability Sexual Behavior 0 No disability 0 No disability Self Care 0 No disability 0 No disability Life Support Activity 0 No disability 0 No disability PDI Score 0 0 Pain Enjoyment of Life and General Activity Scale (0-10): PEG: A Three-Item Scale Assessing Pain Intensity and Interference What number best describes your pain on average in the past week?: 6 (10/08/2022 4:53 PM) What number best describes how, during the past week, pain has interfered with your enjoyment of life?: 0 - Does not interfere (10/08/2022 4:53 PM) What number best describes how, during the past week, pain has interfered with your general activity?: 0 - Does not interfere (10/08/2022 4:53 PM) REVIEW OF SYSTEMS: GENERAL: No weight loss or fevers RESPIRATORY: Negative for cough CARDIOVASCULAR: Negative for chest pain GI: No nausea, vomiting, or diarrhea. MUSCULOSKELETAL: Positive joint pain or swelling, back pain or muscle pain. 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 Other acne Persistent vomiting PAST SURGICAL HISTORY Procedure Laterality Date EAR TUBES HX ESOPHAGOGASTRODUODENOSCOPY TRANSORAL DIAGNOSTIC 01/04/03 EGD EXTRACTION, ERUPTED TOOTH OR EXPOSED ROOT (ELEVATION AND/OR FORCEPS REMOVAL) 99 WISODOM TEETH FOOT SURGERY HX HAMMERTOE REVISION, ONE TOE 95, 97 Bialteral/ hammertoe & arches KNEE SURGERY HX MYRINGOTOMY ASPIR&/EUSTACHIAN TUBE NFLTJ ANES 05/20 Myringotomy/tubes PAST SURGICAL HISTORY OF , , , FOOT, KNEE,ANKLES PAST SURGICAL HISTORY OF 2002 MUSCLE BIOPSY PAST SURGICAL HISTORY OF 1997 CARDIAC SURGERY TONSILLECTOMY & ADENOIDECTOMY <AGE 14 TONSILLECTOMY PRIMARY/SECONDARY <AGE 14 1982 Tonsillectomy FAMILY HISTORY Problem Relation Age of Onset other (CHARCOT MAXIM TOOTH) Mother Stroke Paternal Grandfather Hypertension Paternal Grandfather Heart Paternal Grandfather Breast Cancer Maternal Grandmother Breast Cancer Paternal Grandmother Social History Tobacco Use Smoking status: Never Smokeless tobacco: Never Substance Use Topics Alcohol use: Yes Drug use: No Work Status: on chronic disability Allergies: Cephalexin Unknown Adhesive Hives Fragrances Rash, Hives Morphine Hives Perfumes Unknown Adhesive Current Outpatient Medications Medication Sig oxyCODONE concentrate (ROXICODONE) 20 mg/mL concentrated solution Take 0.5-1 mL by mouth every 4 hours as needed for pain for up to 25 days. Take 0.5-1mL every 4 hours as needed for pain for up to 25 days Do not start before September 18, 2022. nebivolol (BYSTOLIC) 2.5 mg tablet modafinil (PROVIGIL) 100 mg tablet Take 1 tablet by mouth once daily for 30 days. ipratropium bromide (ATROVENT) 42 mcg (0.06 %) nasal spray SPRAY 2 SPRAYS INTO EACH NOSTRIL TWICE A DAY ondansetron (ZOFRAN) 8 mg tablet ondansetron HCl 8 mg tablet TAKE 1 TABLET BY MOUTH THREE TIMES A DAY megestrol (MEGACE) 400 mg/10 mL (40 mg/mL) suspension megestrol 400 mg/10 mL (40 mg/mL) oral suspension TAKE 2 ML TWICE A DAY BY ORAL ROUTE FOR 90 DAYS. ondansetron orally disintegrating (ZOFRAN ODT) 8 mg disintegrating tablet montelukast 10 mg tablet Take 10 mg by mouth daily at bedtime. Take one(1) tablet daily. No current facility-administered medications for this visit. PHYSICAL EXAMINATION: GENERAL: No weight loss or fevers RESPIRATORY: Negative for cough CARDIOVASCULAR: Negative for chest pain GI: No nausea, vomiting, or diarrhea. MUSCULOSKELETAL: joint pain or swelling, back pain, and muscle pain ASSESSMENT: Patient is stable. Chronic pain is persistent. Medications are helping Capri Aguilar to have an improved quality of life. Patient compliance with Opioid Contract: not applicable Encounter Diagnosis ICD-10-CM 1. Other chronic pain G89.29 2. 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 Fibromyalgia M79.7 4. Migraine variant G43.809 Plan: The pain management agreement was reviewed with the patient. The patient is aware of the risks/benefits of the medicatiion, potential for addiction/overdose, and how to safely store and dispose of the medication(s). They will sign the pain agreement the next time they come to the office. The patient understands the goal of our treatment is a reduction in pain and/or an improved level of functioning with activities of daily living. If at any time the patient does not feel the medications are helping them to achieve these goals, the medications may be discontinued. The patient reports a reduction in pain and/or an improved level of functioning with activities of daily living, denies any significant adverse effects, is compliant with the pain management agreement and there are no signs of medication misuse, abuse or diversion; therefore, the medications will be continued. Continue OxyIR liquid Continue Botox q12 weeks - pending 10/25/22 Continue Trigger Point Injections, patient already has future appointment scheduled. She declines further lidocaine infusions F/U in 1 month Demian Forman APRN.CNP documented in this encounter [facility] 10-10-2022 Instructions Demian Forman APRN.CNP - 10/10/2022 2:03 PM EDT Continue OxyIR liquid Continue Botox q12 weeks, patient already has future appointment scheduled Continue Trigger Point Injections, patient already has future appointment scheduled. She declines further lidocaine infusions F/U in 1 month documented in this encounter [facility] 09-12-2022 Note HNO ID: [id number] Author: Demian Forman APRN.CNP Service: ? Author Type: Nurse Practitioner Type: Progress Notes Filed: 09/12/2022 3:22 PM Note Text: This video visit was performed via [employer] video visit. Patient consented to receive health care services via virtual visit for this encounter Provider Location: Non[facility] Patient Location: Patient Home or Place of Residence I have communicated my name and active licensure. The patient's identity and physical location were verified at the time of this visit. Either the patient or their legal compliance representative has been informed of the risks and benefits of -- and alternatives to -- treatment through a remote evaluation and consents to proceed with the evaluation remotely. Chief Complaint: Pain History of Present Illness: Capri Aguilar is a 46 year old year old female being seen at [facility] for a evaluation and/or management of her chronic pain. The patient was last seen virtually on 08/21/2022. She states that since the last visit symptoms have been stable. She had 0 migraines last month compared to the 180 hours prior to starting botox. Her medical history has not changed and she denies any hospital stays or ER visits. Pain Location: generalized pain, migraines Pain Scale: 6 on 0-10 scale per patient Pain Character: aching and throbbing Timing: occurs constantly Radiation: all over Patient Reports numbness and tingling below knees and elbows bilaterally The pain is exacerbated by activity The pain is mitigated by Trigger Point Injections, Botox injections, medications Symptoms interfere with physical activity, walking and social activities. History of Falls: None in the past 3 months She is currently prescribed oxycodone from our office. The patient states the last dose of oxycodone was taken this afternoon. The medications are partially effective. Prior pain treatment has included: Botox injections; Trigger Point Injections; IV Lidocaine infusion 05/04/2020 PDMP website checked and validated. The OARRS report has been reviewed and is consistent with the patients medical history and medication intake. Last Opioid agreement effective date: 07/03/2022 Last UDS: Reviewed - No inconsistencies noted. Summary Report Date Value Ref Range Status 08/01/2022 FINAL Final Comment: ====== Opiate Class, MS, Ur RFX Oxycodone Class, MS, Ur RFX ToxAssure Flex 23, Ur ====== Test Result Flag Units Drug Present Oxycodone 06819 ng/mg creat Oxymorphone >26840 ng/mg creat Noroxycodone >34137 ng/mg creat Noroxymorphone 9037 ng/mg creat Sources of oxycodone are scheduled prescription medications. Oxymorphone, noroxycodone, and noroxymorphone are expected metabolites of oxycodone. Oxymorphone is also available as a scheduled prescription medication. ====== Test Result Flag Units Ref Range Creatinine 84 mg/dL >=20 ====== Declared Medications: Medication list was not provided. ====== For clinical consultation, please call . ====== Chronic Pain Functional Assessment Tools Pain Disability Index: Pain Disability Index 07/02/2022 08/20/2022 Family/Home Responsibilities 0 No Disability 0 No Disability Recreation 0 No disability 0 No disability Social Activity 0 No disability 0 No disability Occupation 0 No disability 0 No disability Sexual Behavior 0 No disability 0 No disability Self Care 0 No disability 0 No disability Life Support Activity 0 No disability 0 No disability PDI Score 0 0 Pain Enjoyment of Life and General Activity Scale (0-10): PEG: A Three-Item Scale Assessing Pain Intensity and Interference What number best describes your pain on average in the past week?: 5 (09/12/2022 10:14 AM) What number best describes how, during the past week, pain has interfered with your enjoyment of life?: 0 - Does not interfere (09/12/2022 10:14 AM) What number best describes how, during the past week, pain has interfered with your general activity?: 0 - Does not interfere (09/12/2022 10:14 AM) REVIEW OF SYSTEMS: GENERAL: No weight loss or fevers RESPIRATORY: Negative for cough CARDIOVASCULAR: Negative for chest pain GI: No nausea, vomiting, or diarrhea. MUSCULOSKELETAL: Positive joint pain or swelling, back pain or muscle pain. PAST MEDICAL HISTORY Diagnosis Date Acute gastritis without mention of hemorrhage CHARCOT Charcot (more content not included)... [facility] 09-12-2022 History of Presen t illness Narrative This video visit was performed via [employer] video visit. Patient consented to receive health care services via virtual visit for this encounter [facility] Patient Location: Patient Home or Place of Residence I have communicated my name and active licensure. The patient's identity and physical location were verified at the time of this visit. Either the patient or their legal compliance representative has been informed of the risks and benefits of -- and alternatives to -- treatment through a remote evaluation and consents to proceed with the evaluation remotely. Chief Complaint: Pain History of Present Illness: Capri Aguilar is a 46 year old year old female being seen at [facility] for a evaluation and/or management of her chronic pain. The patient was last seen virtually on 08/21/2022. She states that since the last visit symptoms have been stable. She had 0 migraines last month compared to the 180 hours prior to starting botox. Her medical history has not changed and she denies any hospital stays or ER visits. Pain Location: generalized pain, migraines Pain Scale: 6 on 0-10 scale per patient Pain Character: aching and throbbing Timing: occurs constantly Radiation: all over Patient Reports numbness and tingling below knees and elbows bilaterally The pain is exacerbated by activity The pain is mitigated by Trigger Point Injections, Botox injections, medications Symptoms interfere with physical activity, walking and social activities. History of Falls: None in the past 3 months She is currently prescribed oxycodone from our office. The patient states the last dose of oxycodone was taken this afternoon. The medications are partially effective. Prior pain treatment has included: Botox injections; Trigger Point Injections; IV Lidocaine infusion 05/04/2020 PDMP website checked and validated. The OARRS report has been reviewed and is consistent with the patients medical history and medication intake. Last Opioid agreement effective date: 07/03/2022 Last UDS: Reviewed - No inconsistencies noted. Summary Report Date Value Ref Range Status 08/01/2022 FINAL Final Comment: ====== Opiate Class, MS, Ur RFX Oxycodone Class, MS, Ur RFX ToxAssure Flex 23, Ur ====== Test Result Flag Units Drug Present Oxycodone 89669 ng/mg creat Oxymorphone >70580 ng/mg creat Noroxycodone >26199 ng/mg creat Noroxymorphone 9037 ng/mg creat Sources of oxycodone are scheduled prescription medications. Oxymorphone, noroxycodone, and noroxymorphone are expected metabolites of oxycodone. Oxymorphone is also available as a scheduled prescription medication. ====== Test Result Flag Units Ref Range Creatinine 84 mg/dL >=20 ====== Declared Medications: Medication list was not provided. ====== For clinical consultation, please call . ====== Chronic Pain Functional Assessment Tools Pain Disability Index: Pain Disability Index 07/02/2022 08/20/2022 Family/Home Responsibilities 0 No Disability 0 No Disability Recreation 0 No disability 0 No disability Social Activity 0 No disability 0 No disability Occupation 0 No disability 0 No disability Sexual Behavior 0 No disability 0 No disability Self Care 0 No disability 0 No disability Life Support Activity 0 No disability 0 No disability PDI Score 0 0 Pain Enjoyment of Life and General Activity Scale (0-10): PEG: A Three-Item Scale Assessing Pain Intensity and Interference What number best describes your pain on average in the past week?: 5 (09/12/2022 10:14 AM) What number best describes how, during the past week, pain has interfered with your enjoyment of life?: 0 - Does not interfere (09/12/2022 10:14 AM) What number best describes how, during the past week, pain has interfered with your general activity?: 0 - Does not interfere (09/12/2022 10:14 AM) REVIEW OF SYSTEMS: GENERAL: No weight loss or fevers RESPIRATORY: Negative for cough CARDIOVASCULAR: Negative for chest pain GI: No nausea, vomiting, or diarrhea. MUSCULOSKELETAL: Positive joint pain or swelling, back pain or muscle pain. 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 Other acne Persistent vomiting PAST SURGICAL HISTORY Procedure Laterality Date EAR TUBES HX ESOPHAGOGASTRODUODENOSCOPY TRANSORAL DIAGNOSTIC 01/04/03 EGD EXTRACTION, ERUPTED TOOTH OR EXPOSED ROOT (ELEVATION AND/OR FORCEPS REMOVAL) 99 WISODOM TEETH FOOT SURGERY HX HAMMERTOE REVISION, ONE TOE 95, 97 Bialteral/ hammertoe & arches KNEE SURGERY HX MYRINGOTOMY ASPIR&/EUSTACHIAN TUBE NFLTJ ANES 05/20 Myringotomy/tubes PAST SURGICAL HISTORY OF , 04, 03, 01 FOOT, KNEE,ANKLES PAST SURGICAL HISTORY OF 2002 MUSCLE BIOPSY PAST SURGICAL HISTORY OF 1997 CARDIAC SURGERY TONSILLECTOMY & ADENOIDECTOMY <AGE 14 TONSILLECTOMY PRIMARY/SECONDARY <AGE 14 1982 Tonsillectomy FAMILY HISTORY Problem Relation Age of Onset other (CHARCOT MAXIM TOOTH) Mother Stroke Paternal Grandfather Hypertension Paternal Grandfather Heart Paternal Grandfather Breast Cancer Maternal Grandmother Breast Cancer Paternal Grandmother Social History Tobacco Use Smoking status: Never Smokeless tobacco: Never Substance Use Topics Alcohol use: Yes Drug use: No Work Status: on chronic disability Allergies: Cephalexin Unknown Adhesive Hives Fragrances Rash, Hives Morphine Hives Perfumes Unknown Adhesive Current Outpatient Medications Medication Sig oxyCODONE concentrate (ROXICODONE) 20 mg/mL concentrated solution Take 0.5-1 mL by mouth every 4 hours as needed for pain for up to 25 days. Take 0.5-1mL every 4 hours as needed for pain for up to 25 days nebivolol (BYSTOLIC) 2.5 mg tablet modafinil (PROVIGIL) 100 mg tablet Take 1 tablet by mouth once daily for 30 days. ipratropium bromide (ATROVENT) 42 mcg (0.06 %) nasal spray SPRAY 2 SPRAYS INTO EACH NOSTRIL TWICE A DAY ondansetron (ZOFRAN) 8 mg tablet ondansetron HCl 8 mg tablet TAKE 1 TABLET BY MOUTH THREE TIMES A DAY megestrol (MEGACE) 400 mg/10 mL (40 mg/mL) suspension megestrol 400 mg/10 mL (40 mg/mL) oral suspension TAKE 2 ML TWICE A DAY BY ORAL ROUTE FOR 90 DAYS. ondansetron orally disintegrating (ZOFRAN ODT) 8 mg disintegrating tablet montelukast 10 mg tablet Take 10 mg by mouth daily at bedtime. Take one(1) tablet daily. No current facility-administered medications for this visit. PHYSICAL EXAMINATION: GENERAL: No weight loss or fevers RESPIRATORY: Negative for cough CARDIOVASCULAR: Negative for chest pain GI: No nausea, vomiting, or diarrhea. MUSCULOSKELETAL: joint pain or swelling, back pain, and muscle pain ASSESSMENT: Patient is stable. Chronic pain is persistent. Medications are helping Capri Aguilar to have an improved quality of life. Patient compliance with Opioid Contract: not applicable Encounter Diagnosis ICD-10-CM 1. 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 Fibromyalgia M79.7 4. 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 Migraine variant G43.809 6. Myofascial pain syndrome M79.18 Plan: The pain management agreement was reviewed with the patient. The patient is aware of the risks/benefits of the medicatiion, potential for addiction/overdose, and how to safely store and dispose of the medication(s). They will sign the pain agreement the next time they come to the office. The patient understands the goal of our treatment is a reduction in pain and/or an improved level of functioning with activities of daily living. If at any time the patient does not feel the medications are helping them to achieve these goals, the medications may be discontinued. The patient reports a reduction in pain and/or an improved level of functioning with activities of daily living, denies any significant adverse effects, is compliant with the pain management agreement and there are no signs of medication misuse, abuse or diversion; therefore, the medications will be continued. Continue OxyIR liquid Continue Botox q12 weeks, patient already has future appointment scheduled Continue Trigger Point Injections, patient already has future appointment scheduled. She declines further lidocaine infusions F/U in 1 month Demian Forman APRN.CNP documented in this encounter [facility] 09-12-2022 Instructions Demian Forman APRN.CNP - 09/12/2022 1:00 PM EDT Continue OxyIR liquid Continue Botox q12 weeks, patient already has future appointment scheduled Continue Trigger Point Injections, patient already has future appointment scheduled. She declines further lidocaine infusions F/U in 1 month documented in this encounter [facility] 08-23-2022 Surgical operatio n note Summary: Trigger point Injection PROCEDURE: Trigger point injection at cervical, thoracic, lumbar and rhomboid paraspinal mm. group, trapezius and B/L scalene mm. groups. DATE OF SERVICE: August 23, 2022 PREPROCEDURE DIAGNOSIS: Myofascial pain syndrome and Fibromyalgia POSTPROCEDURE DIAGNOSIS: Same. ANESTHESIA: Local. COMPLICATIONS: None. FUNCTIONAL ASSESSMENT: See nurses documentation. CONSENT: Risks of the procedure including bleeding, infection, nerve damage, seizure, abscess formation, hematoma formation, headache, failure of the pain to improve and potential worsening of the pain, were explained in full to the patient who verbalized understanding and wishes to proceed with the injection at this time. Written informed consent was thereby obtained. BRIEF HISTORY: See charts. DESCRIPTION OF PROCEDURE: After informed consent was obtained, the patient was taken to the procedure room and placed in the prone and supine position. The patient's muscle groups, described above, were identified and the tender trigger points within the muscles were marked with surgical pen. The muscle groups were then prepped and draped in sterile fashion with Chloroprep swabs. A 25 gauge 1 inch needle was attached to a syringe containing 40 ml 0.25% Marcaine. The tip of the needle was then advanced into the belly of the taut muscle band (trigger point) identified previously and repositioned such that the myofascial pain was maximal. After negative aspiration, a total of 40 ml 0.25% Marcaine of the above solution was injected into the previously identified muscle groups. The patient tolerated the procedure well and all needles were removed intact. The patient s vitals were monitored for an appropriate time interval and remained stable. The documentation for this encounter was entered by Renetta Guajardo medical education specialist, for Dr. Morteza Meza on August 23, 2022. I, Dr. Morteza Meza, personally performed the services described in this documentation. All medical record entries made by the scribe were at my direction and in my presence. I have reviewed the chart and discharge instructions and agree that the record reflects my personal performance and is accurate and complete. Electronically Signed: Dr. Meza. August 23, 2022. documented in this encounter [facility] 08-21-2022 Note HNO ID: [id number] Author: Demian Forman APRN.VISHAL Service: ? Author Type: Nurse Practitioner Type: Progress Notes Filed: 08/21/2022 3:01 PM Note Text: This video visit was performed via [employer] video visit. Patient consented to receive health care services via virtual visit for this encounter Provider Location: Non-[facility] Patient Location: Patient Home or Place of Residence I have communicated my name and active licensure. The patient's identity and physical location were verified at the time of this visit. Either the patient or their legal compliance representative has been informed of the risks and benefits of -- and alternatives to -- treatment through a remote evaluation and consents to proceed with the evaluation remotely. Chief Complaint: Pain History of Present Illness: Capri Aguilar is a 46 year old year old female being seen at [facility] for a evaluation and/or management of her chronic pain. The patient was last seen virtually on 07/03/2022. She states that since the last visit symptoms have been stable. She reports having no migraines last month. Her medical history has not changed and she denies any hospital stays or ER visits. Pain Location: generalized pain, migraines Pain Scale: 7 on 0-10 scale per patient Pain Character: aching and throbbing Timing: occurs constantly Radiation: all over Patient Reports numbness and tingling below knees and elbows bilaterally The pain is exacerbated by activity The pain is mitigated by Trigger Point Injections, Botox injections, medications Symptoms interfere with physical activity, walking and social activities. History of Falls: None in the past 3 months She is currently prescribed oxycodone from our office. The patient states the last dose of oxycodone was taken this afternoon. The medications are partially effective. Prior pain treatment has included: Botox injections; Trigger Point Injections; IV Lidocaine infusion 05/04/2020 PDMP website checked and validated. The OARRS report has been reviewed and is consistent with the patients medical history and medication intake. Last Opioid agreement effective date: 07/03/2022 Last UDS: Reviewed - No inconsistencies noted. Summary Report Date Value Ref Range Status 08/01/2022 FINAL Final Comment: ====== Opiate Class, MS, Ur RFX Oxycodone Class, MS, Ur RFX ToxAssure Flex 23, Ur ====== Test Result Flag Units Drug Present Oxycodone 79038 ng/mg creat Oxymorphone >06266 ng/mg creat Noroxycodone >20607 ng/mg creat Noroxymorphone 9037 ng/mg creat Sources of oxycodone are scheduled prescription medications. Oxymorphone, noroxycodone, and noroxymorphone are expected metabolites of oxycodone. Oxymorphone is also available as a scheduled prescription medication. ====== Test Result Flag Units Ref Range Creatinine 84 mg/dL >=20 ====== Declared Medications: Medication list was not provided. ====== For clinical consultation, please call . ====== Chronic Pain Functional Assessment Tools Pain Disability Index: Pain Disability Index 07/02/2022 08/20/2022 Family/Home Responsibilities 0 No Disability 0 No Disability Recreation 0 No disability 0 No disability Social Activity 0 No disability 0 No disability Occupation 0 No disability 0 No disability Sexual Behavior 0 No disability 0 No disability Self Care 0 No disability 0 No disability Life Support Activity 0 No disability 0 No disability PDI Score 0 0 Pain Enjoyment of Life and General Activity Scale (0-10): PEG: A Three-Item Scale Assessing Pain Intensity and Interference What number best describes your pain on average in the past week?: 6 (08/20/2022 9:41 PM) What number best describes how, during the past week, pain has interfered with your enjoyment of life?: 0 - Does not interfere (08/20/2022 9:41 PM) What number best describes how, during the past week, pain has interfered with your general activity?: 0 - Does not interfere (08/20/2022 9:41 PM) REVIEW OF SYSTEMS: GENERAL: No weight loss or fevers RESPIRATORY: Negative for cough CARDIOVASCULAR: Negative for chest pain GI: No nausea, vomiting, or diarrhea. MUSCULOSKELETAL: Positive joint pain or swelling, back pain or muscle pain. PAST MEDICAL HISTORY Diagnosis Date Acute gastritis without mention of hemorrhage CHARCOT Vwivvqc-Nhvar-lterj disease, deafness, and inte (more content not included)... [facility] 08-21-2022 History of Presen t illness Narrative This video visit was performed via [employer] video visit. Patient consented to receive health care services via virtual visit for this encounter Provider Location: Non-[facility] Patient Location: Patient Home or Place of Residence I have communicated my name and active licensure. The patient's identity and physical location were verified at the time of this visit. Either the patient or their legal compliance representative has been informed of the risks and benefits of -- and alternatives to -- treatment through a remote evaluation and consents to proceed with the evaluation remotely. Chief Complaint: Pain History of Present Illness: Capri Aguilar is a 46 year old year old female being seen at [facility] for a evaluation and/or management of her chronic pain. The patient was last seen virtually on 07/03/2022. She states that since the last visit symptoms have been stable. She reports having no migraines last month. Her medical history has not changed and she denies any hospital stays or ER visits. Pain Location: generalized pain, migraines Pain Scale: 7 on 0-10 scale per patient Pain Character: aching and throbbing Timing: occurs constantly Radiation: all over Patient Reports numbness and tingling below knees and elbows bilaterally The pain is exacerbated by activity The pain is mitigated by Trigger Point Injections, Botox injections, medications Symptoms interfere with physical activity, walking and social activities. History of Falls: None in the past 3 months She is currently prescribed oxycodone from our office. The patient states the last dose of oxycodone was taken this afternoon. The medications are partially effective. Prior pain treatment has included: Botox injections; Trigger Point Injections; IV Lidocaine infusion 05/04/2020 PDMP website checked and validated. The OARRS report has been reviewed and is consistent with the patients medical history and medication intake. Last Opioid agreement effective date: 07/03/2022 Last UDS: Reviewed - No inconsistencies noted. Summary Report Date Value Ref Range Status 08/01/2022 FINAL Final Comment: ====== Opiate Class, MS, Ur RFX Oxycodone Class, MS, Ur RFX ToxAssure Flex 23, Ur ====== Test Result Flag Units Drug Present Oxycodone 84481 ng/mg creat Oxymorphone >78560 ng/mg creat Noroxycodone >35810 ng/mg creat Noroxymorphone 9037 ng/mg creat Sources of oxycodone are scheduled prescription medications. Oxymorphone, noroxycodone, and noroxymorphone are expected metabolites of oxycodone. Oxymorphone is also available as a scheduled prescription medication. ====== Test Result Flag Units Ref Range Creatinine 84 mg/dL >=20 ====== Declared Medications: Medication list was not provided. ====== For clinical consultation, please call . ====== Chronic Pain Functional Assessment Tools Pain Disability Index: Pain Disability Index 07/02/2022 08/20/2022 Family/Home Responsibilities 0 No Disability 0 No Disability Recreation 0 No disability 0 No disability Social Activity 0 No disability 0 No disability Occupation 0 No disability 0 No disability Sexual Behavior 0 No disability 0 No disability Self Care 0 No disability 0 No disability Life Support Activity 0 No disability 0 No disability PDI Score 0 0 Pain Enjoyment of Life and General Activity Scale (0-10): PEG: A Three-Item Scale Assessing Pain Intensity and Interference What number best describes your pain on average in the past week?: 6 (08/20/2022 9:41 PM) What number best describes how, during the past week, pain has interfered with your enjoyment of life?: 0 - Does not interfere (08/20/2022 9:41 PM) What number best describes how, during the past week, pain has interfered with your general activity?: 0 - Does not interfere (08/20/2022 9:41 PM) REVIEW OF SYSTEMS: GENERAL: No weight loss or fevers RESPIRATORY: Negative for cough CARDIOVASCULAR: Negative for chest pain GI: No nausea, vomiting, or diarrhea. MUSCULOSKELETAL: Positive joint pain or swelling, back pain or muscle pain. 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 Other acne Persistent vomiting PAST SURGICAL HISTORY Procedure Laterality Date EAR TUBES HX ESOPHAGOGASTRODUODENOSCOPY TRANSORAL DIAGNOSTIC 01/04/03 EGD EXTRACTION, ERUPTED TOOTH OR EXPOSED ROOT (ELEVATION AND/OR FORCEPS REMOVAL) 99 WISODOM TEETH FOOT SURGERY HX HAMMERTOE REVISION, ONE TOE 95, 97 Bialteral/ hammertoe & arches KNEE SURGERY HX MYRINGOTOMY ASPIR&/EUSTACHIAN TUBE NFLTJ ANES 05/20 Myringotomy/tubes PAST SURGICAL HISTORY OF , 04, 03, 01 FOOT, KNEE,ANKLES PAST SURGICAL HISTORY OF 2002 MUSCLE BIOPSY PAST SURGICAL HISTORY OF 1997 CARDIAC SURGERY TONSILLECTOMY & ADENOIDECTOMY <AGE 14 TONSILLECTOMY PRIMARY/SECONDARY <AGE 14 1982 Tonsillectomy FAMILY HISTORY Problem Relation Age of Onset other (CHARCOT MAXIM TOOTH) Mother Stroke Paternal Grandfather Hypertension Paternal Grandfather Heart Paternal Grandfather Breast Cancer Maternal Grandmother Breast Cancer Paternal Grandmother Social History Tobacco Use Smoking status: Never Smokeless tobacco: Never Substance Use Topics Alcohol use: Yes Drug use: No Work Status: on chronic disability Allergies: Cephalexin Unknown Adhesive Hives Fragrances Rash, Hives Morphine Hives Perfumes Unknown Adhesive Current Outpatient Medications Medication Sig oxyCODONE concentrate (ROXICODONE) 20 mg/mL concentrated solution Take 0.5-1 mL by mouth every 4 hours as needed for pain for up to 25 days. Take 0.5-1mL every 4 hours as needed for pain for up to 25 days Do not start before July 13, 2022. nebivolol (BYSTOLIC) 2.5 mg tablet modafinil (PROVIGIL) 100 mg tablet Take 1 tablet by mouth once daily for 30 days. ipratropium bromide (ATROVENT) 42 mcg (0.06 %) nasal spray SPRAY 2 SPRAYS INTO EACH NOSTRIL TWICE A DAY ondansetron (ZOFRAN) 8 mg tablet ondansetron HCl 8 mg tablet TAKE 1 TABLET BY MOUTH THREE TIMES A DAY megestrol (MEGACE) 400 mg/10 mL (40 mg/mL) suspension megestrol 400 mg/10 mL (40 mg/mL) oral suspension TAKE 2 ML TWICE A DAY BY ORAL ROUTE FOR 90 DAYS. ondansetron orally disintegrating (ZOFRAN ODT) 8 mg disintegrating tablet montelukast 10 mg tablet Take 10 mg by mouth daily at bedtime. Take one(1) tablet daily. No current facility-administered medications for this visit. PHYSICAL EXAMINATION: GENERAL: No weight loss or fevers RESPIRATORY: Negative for cough CARDIOVASCULAR: Negative for chest pain GI: No nausea, vomiting, or diarrhea. MUSCULOSKELETAL: joint pain or swelling, back pain, and muscle pain ASSESSMENT: Patient is stable. Chronic pain is persistent. Medications are helping Capri Cris Schusteron to have an improved quality of life. Patient compliance with Opioid Contract: not applicable Encounter Diagnosis ICD-10-CM 1. 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 Fibromyalgia M79.7 4. Migraine variant G43.809 5. 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 The patient is aware of the risks/benefits of the medicatiion, potential for addiction/overdose, and how to safely store and dispose of the medication(s). They will sign the pain agreement the next time they come to the office. The patient understands the goal of our treatment is a reduction in pain and/or an improved level of functioning with activities of daily living. If at any time the patient does not feel the medications are helping them to achieve these goals, the medications may be discontinued. The patient reports a reduction in pain and/or an improved level of functioning with activities of daily living, denies any significant adverse effects, is compliant with the pain management agreement and there are no signs of medication misuse, abuse or diversion; therefore, the medications will be continued. Continue OxyIR liquid Continue Botox q12 weeks, patient already has future appointment scheduled Continue Trigger Point Injections, patient already has future appointment scheduled. She declines further lidocaine infusions F/U in 1 month Demian Forman APRN.CNP documented in this encounter [facility] 08-21-2022 Instructions Demian Forman APRN.CNP - 08/21/2022 2:52 PM EDT Continue OxyIR liquid Continue Botox q12 weeks, patient already has future appointment scheduled Continue Trigger Point Injections, patient already has future appointment scheduled. She declines further lidocaine infusions F/U in 1 month documented in this encounter [facility] 07-24-2022 Miscellaneous Notes I left a message to schedule Botox. Shubham 08/01/2022 Ana July 24, 2022 2:24 PM documented in this encounter [facility] 07-03-2022 History of Presen t illness Narrative This video visit was performed via [employer] video visit. Patient consented to receive health care services via virtual visit for this encounter Provider Location: Non-[facility] Patient Location: Patient Home or Place of Residence Risks, benefits, and limitations of receiving care virtually were discussed with the patient. The patient expressed understanding and is willing to proceed. Chief Complaint: Pain History of Present Illness: Capri Aguilar is a 46 year old year old female being seen at [facility] for a evaluation and/or management of her chronic pain. The patient was last seen virtually on 05/07/2022. She states that since the last visit symptoms have been stable. She notes having 3 abdominal migraines last month, no classic. Her medical history has not changed and she denies any hospital stays or ER visits. Pain Location: generalized pain, migraines Pain Scale: 5 on 0-10 scale per patient Pain Character: aching and throbbing Timing: occurs constantly Radiation: all over Patient Reports numbness and tingling below knees and elbows bilaterally The pain is exacerbated by activity The pain is mitigated by Trigger Point Injections, Botox injections, medications Symptoms interfere with physical activity, walking and social activities. History of Falls: None in the past 3 months She is currently prescribed oxycodone from our office. The patient states the last dose of oxycodone was taken this afternoon. The medications are partially effective. Prior pain treatment has included: Botox injections; Trigger Point Injections; IV Lidocaine infusion 05/04/2020 Last UDS: Reviewed - No inconsistencies noted. Summary Report (Summary) Date Value Ref Range Status 01/30/2022 FINAL Final Comment: ====== TOXASSURE COMP DRUG ANALYSIS,UR ====== Test Result Flag Units Drug Present Oxycodone 6739 ng/mg creat Oxymorphone >7299 ng/mg creat Noroxycodone >7299 ng/mg creat Noroxymorphone >7299 ng/mg creat Sources of oxycodone are scheduled prescription medications. Oxymorphone, noroxycodone, and noroxymorphone are expected metabolites of oxycodone. Oxymorphone is also available as a scheduled prescription medication. ====== Test Result Flag Units Ref Range Creatinine 137 mg/dL >=20 ====== Declared Medications: Medication list was not provided. ====== For clinical consultation, please call . ====== Pain Disability Index 04/18/2022 07/02/2022 Family/Home Responsibilities 0 No Disability 0 No Disability Recreation 0 No disability 0 No disability Social Activity 0 No disability 0 No disability Occupation 0 No disability 0 No disability Sexual Behavior 0 No disability 0 No disability Self Care 0 No disability 0 No disability Life Support Activity 0 No disability 0 No disability PDI Score 0 0 REVIEW OF SYSTEMS: GENERAL: No weight loss or fevers RESPIRATORY: Negative for cough CARDIOVASCULAR: Negative for chest pain GI: No nausea, vomiting, or diarrhea. MUSCULOSKELETAL: Positive joint pain or swelling, back pain or muscle pain. 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 Other acne Persistent vomiting PAST SURGICAL HISTORY Procedure Laterality Date EAR TUBES HX ESOPHAGOGASTRODUODENOSCOPY TRANSORAL DIAGNOSTIC 01/04/03 EGD EXTRACTION, ERUPTED TOOTH OR EXPOSED ROOT (ELEVATION AND/OR FORCEPS REMOVAL) 99 WISODOM TEETH FOOT SURGERY HX HAMMERTOE REVISION, ONE TOE 95, 97 Bialteral/ hammertoe & arches KNEE SURGERY HX MYRINGOTOMY ASPIR&/EUSTACHIAN TUBE NFLTJ ANES 05/20 Myringotomy/tubes PAST SURGICAL HISTORY OF , 04, 03, FOOT, KNEE,ANKLES PAST SURGICAL HISTORY OF 2002 MUSCLE BIOPSY PAST SURGICAL HISTORY OF 1997 CARDIAC SURGERY TONSILLECTOMY & ADENOIDECTOMY <AGE 14 TONSILLECTOMY PRIMARY/SECONDARY <AGE 14 1982 Tonsillectomy FAMILY HISTORY Problem Relation Age of Onset other (CHARCOT MAXIM TOOTH) Mother Stroke Paternal Grandfather Hypertension Paternal Grandfather Heart Paternal Grandfather Breast Cancer Maternal Grandmother Breast Cancer Paternal Grandmother Social History Tobacco Use Smoking status: Never Smokeless tobacco: Never Substance Use Topics Alcohol use: Yes Drug use: No Work Status: on chronic disability Allergies: Cephalexin Unknown Adhesive Hives Fragrances Rash, Hives Morphine Hives Perfumes Unknown Adhesive Current Outpatient Medications Medication Sig oxyCODONE concentrate (ROXICODONE) 20 mg/mL concentrated solution Take 0.5-1 mL by mouth every 4 hours as needed for pain for up to 25 days. Take 0.5-1mL every 4 hours as needed for pain for up to 25 days Do not start before June 17, 2022. nebivolol (BYSTOLIC) 2.5 mg tablet modafinil (PROVIGIL) 100 mg tablet Take 1 tablet by mouth once daily for 30 days. ipratropium bromide (ATROVENT) 42 mcg (0.06 %) nasal spray SPRAY 2 SPRAYS INTO EACH NOSTRIL TWICE A DAY ondansetron (ZOFRAN) 8 mg tablet ondansetron HCl 8 mg tablet TAKE 1 TABLET BY MOUTH THREE TIMES A DAY megestrol (MEGACE) 400 mg/10 mL (40 mg/mL) suspension megestrol 400 mg/10 mL (40 mg/mL) oral suspension TAKE 2 ML TWICE A DAY BY ORAL ROUTE FOR 90 DAYS. ondansetron orally disintegrating (ZOFRAN ODT) 8 mg disintegrating tablet montelukast 10 mg tablet Take 10 mg by mouth daily at bedtime. Take one(1) tablet daily. No current facility-administered medications for this visit. PHYSICAL EXAMINATION: GENERAL: No weight loss or fevers RESPIRATORY: Negative for cough CARDIOVASCULAR: Negative for chest pain GI: No nausea, vomiting, or diarrhea. MUSCULOSKELETAL: joint pain or swelling, back pain, and muscle pain ASSESSMENT: Patient is stable. Chronic pain is persistent. Medications are helping Capri Aguilar to have an improved quality of life. Patient compliance with Opioid Contract: not applicable Encounter Diagnosis ICD-10-CM 1. Other chronic pain G89.29 2. 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 Fibromyalgia M79.7 4. Migraine variant G43.809 5. 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 The patient is aware of the risks/benefits of the medicatiion, potential for addiction/overdose, and how to safely store and dispose of the medication(s). They will sign the pain agreement the next time they come to the office. The patient understands the goal of our treatment is a reduction in pain and/or an improved level of functioning with activities of daily living. If at any time the patient does not feel the medications are helping them to achieve these goals, the medications may be discontinued. The patient reports a reduction in pain and/or an improved level of functioning with activities of daily living, denies any significant adverse effects, is compliant with the pain management agreement and there are no signs of medication misuse, abuse or diversion; therefore, the medications will be continued. Continue OxyIR liquid Continue Botox q12 weeks, patient already has future appointment scheduled Continue Trigger Point Injections, patient already has future appointment scheduled. Discussed changing to 0.5% Marcaine for next trigger point injection. She declines further lidocaine infusions F/U in 1 month Demian Forman APRN.CNP documented in this encounter [facility] 07-03-2022 Instructions Demian Forman APRN.CNP - 07/03/2022 1:09 PM EST Continue OxyIR liquid Continue Botox q12 weeks, patient already has future appointment scheduled Continue Trigger Point Injections, patient already has future appointment scheduled. She declines further lidocaine infusions F/U in 1 month documented in this encounter [facility] 06-06-2022 Miscellaneous Notes The following approved medication requests have been transmitted electronically. Requested Prescriptions Signed Prescriptions Disp Refills oxyCODONE concentrate (ROXICODONE) 20 mg/mL concentrated solution 150 mL 0 Sig: Take 0.5-1 mL by mouth every 4 hours as needed for pain for up to 25 days. Take 0.5-1mL every 4 hours as needed for pain for up to 25 days Do not start before June 17, 2022. Authorizing Provider: DEMIAN FORMAN APRN.CNP documented in this encounter [facility] 05-07-2022 History of Presen t illness Narrative This video visit was performed via [employer] video visit. Patient consented to receive health care services via virtual visit for this encounter Provider Location: Non[facility] Patient Location: Patient Home or Place of Residence Risks, benefits, and limitations of receiving care virtually were discussed with the patient. The patient expressed understanding and is willing to proceed. Chief Complaint: Pain History of Present Illness: Capri Aguilar is a 46 year old year old female being seen at [facility] for a evaluation and/or management of her chronic pain. The patient was last seen virtually on 04/20/2022. She states that since the last visit symptoms have been stable. Her medical history has not changed and she denies any hospital stays or ER visits. Pain Location: generalized pain, migraines Pain Scale: 3 on 0-10 scale per patient Pain Character: aching and throbbing Timing: occurs constantly Radiation: all over Patient Reports numbness and tingling below knees and elbows bilaterally The pain is exacerbated by activity The pain is mitigated by Trigger Point Injections, Botox injections, medications Symptoms interfere with physical activity, walking and social activities. History of Falls: None in the past 3 months She is currently prescribed oxycodone from our office. The patient states the last dose of oxycodone was taken this afternoon. The medications are partially effective. Prior pain treatment has included: Botox injections; Trigger Point Injections; IV Lidocaine infusion 05/04/2020 Last UDS: Summary Report (Summary) Date Value Ref Range Status 01/30/2022 FINAL Final Comment: ====== TOXASSURE COMP DRUG ANALYSIS,UR ====== Test Result Flag Units Drug Present Oxycodone 6739 ng/mg creat Oxymorphone >7299 ng/mg creat Noroxycodone >7299 ng/mg creat Noroxymorphone >7299 ng/mg creat Sources of oxycodone are scheduled prescription medications. Oxymorphone, noroxycodone, and noroxymorphone are expected metabolites of oxycodone. Oxymorphone is also available as a scheduled prescription medication. ====== Test Result Flag Units Ref Range Creatinine 137 mg/dL >=20 ====== Declared Medications: Medication list was not provided. ====== For clinical consultation, please call . ====== REVIEW OF SYSTEMS: GENERAL: No weight loss or fevers RESPIRATORY: Negative for cough CARDIOVASCULAR: Negative for chest pain GI: No nausea, vomiting, or diarrhea. MUSCULOSKELETAL: Positive joint pain or swelling, back pain or muscle pain. PAST MEDICAL HISTORY Diagnosis Date Acute gastritis without mention of hemorrhage CHARCOT Vmvghhb-Hejow-janjl disease, deafness, and intellectual disability syndrome Eczema Chiquis-Danlos syndrome Fibromyalgia GERD (gastroesophageal reflux disease) Loss of weight 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 Other acne Persistent vomiting PAST SURGICAL HISTORY Procedure Laterality Date EAR TUBES HX ESOPHAGOGASTRODUODENOSCOPY TRANSORAL DIAGNOSTIC 01/04/03 EGD EXTRACTION, ERUPTED TOOTH OR EXPOSED ROOT (ELEVATION AND/OR FORCEPS REMOVAL) 99 WISODOM TEETH FOOT SURGERY HX HAMMERTOE REVISION, ONE TOE 95, 97 Bialteral/ hammertoe & arches KNEE SURGERY HX MYRINGOTOMY ASPIR&/EUSTACHIAN TUBE NFLTJ ANES 05/20 Myringotomy/tubes PAST SURGICAL HISTORY OF , 04, 03, FOOT, KNEE,ANKLES PAST SURGICAL HISTORY OF 2002 MUSCLE BIOPSY PAST SURGICAL HISTORY OF 1997 CARDIAC SURGERY TONSILLECTOMY & ADENOIDECTOMY <AGE 14 TONSILLECTOMY PRIMARY/SECONDARY <AGE 14 1982 Tonsillectomy FAMILY HISTORY Problem Relation Age of Onset other (CHARCOT MAXIM TOOTH) Mother Stroke Paternal Grandfather Hypertension Paternal Grandfather Heart Paternal Grandfather Breast Cancer Maternal Grandmother Breast Cancer Paternal Grandmother Social History Tobacco Use Smoking status: Never Smokeless tobacco: Never Substance Use Topics Alcohol use: Yes Drug use: No Work Status: on chronic disability Allergies: Cephalexin Unknown Adhesive Hives Fragrances Rash, Hives Morphine Hives Perfumes Unknown Adhesive Current Outpatient Medications Medication Sig oxyCODONE concentrate (ROXICODONE) 20 mg/mL concentrated solution Take 0.5-1 mL by mouth every 4 hours as needed for pain for up to 25 days. Take 0.5-1mL every 4 hours as needed for pain for up to 25 days nebivolol (BYSTOLIC) 2.5 mg tablet modafinil (PROVIGIL) 100 mg tablet Take 1 tablet by mouth once daily for 30 days. ipratropium bromide (ATROVENT) 42 mcg (0.06 %) nasal spray SPRAY 2 SPRAYS INTO EACH NOSTRIL TWICE A DAY ondansetron (ZOFRAN) 8 mg tablet ondansetron HCl 8 mg tablet TAKE 1 TABLET BY MOUTH THREE TIMES A DAY megestrol (MEGACE) 400 mg/10 mL (40 mg/mL) suspension megestrol 400 mg/10 mL (40 mg/mL) oral suspension TAKE 2 ML TWICE A DAY BY ORAL ROUTE FOR 90 DAYS. ondansetron orally disintegrating (ZOFRAN ODT) 8 mg disintegrating tablet montelukast 10 mg tablet Take 10 mg by mouth daily at bedtime. Take one(1) tablet daily. No current facility-administered medications for this visit. PHYSICAL EXAMINATION: GENERAL: No weight loss or fevers RESPIRATORY: Negative for cough CARDIOVASCULAR: Negative for chest pain GI: No nausea, vomiting, or diarrhea. MUSCULOSKELETAL: joint pain or swelling, back pain, and muscle pain ASSESSMENT: Patient is stable. Chronic pain is persistent. Medications are helping Capri Aguilar to have an improved quality of life. Patient compliance with Opioid Contract: not applicable Encounter Diagnosis ICD-10-CM 1. Other chronic pain G89.29 2. 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 Fibromyalgia M79.7 4. Migraine variant G43.809 The patient understands the goal of our treatment is a reduction in pain and/or an improved level of functioning with activities of daily living. If at any time the patient does not feel the medications are helping them to achieve these goals, the medications may be discontinued. The patient reports a reduction in pain and/or an improved level of functioning with activities of daily living, denies any significant adverse effects, is compliant with the pain management agreement and there are no signs of medication misuse, abuse or diversion; therefore, the medications will be continued. Continue OxyIR liquid Continue Botox q12 weeks, patient already has future appointment scheduled Continue Trigger Point Injections, patient already has future appointment scheduled. Discussed changing to 0.5% Marcaine for next trigger point injection. She declines further lidocaine infusions F/U in 1 month Demian Forman APRN.CASING [employer]ER documented in this encounter [facility] 05-07-2022 Instructions Demian Forman APRN.CNP - 05/07/2022 1:33 PM EST Continue OxyIR liquid Continue Botox q12 weeks, patient already has future appointment scheduled Continue Trigger Point Injections, patient already has future appointment scheduled. She declines further lidocaine infusions F/U in 1 month documented in this encounter [facility] 04-20-2022 History of Presen t illness Narrative This video visit was performed via [employer] video visit. Patient consented to receive health care services via virtual visit for this encounter Provider Location: Non-[facility] Patient Location: Patient Home or Place of Residence Risks, benefits, and limitations of receiving care virtually were discussed with the patient. The patient expressed understanding and is willing to proceed. Chief Complaint: Pain History of Present Illness: Capri Aguilar is a 46 year old year old female being seen at [facility] for a evaluation and/or management of her chronic pain. The patient was last seen virtually on 03/23/2022. She states that since the last visit symptoms have been stable. Her medical history has not changed and she denies any hospital stays or ER visits. Pain Location: generalized pain, migraines Pain Scale: 4-5 on 0-10 scale per patient Pain Character: aching and throbbing Timing: occurs constantly Radiation: all over Patient Reports numbness and tingling below knees and elbows bilaterally The pain is exacerbated by activity The pain is mitigated by Trigger Point Injections, Botox injections, medications Symptoms interfere with physical activity, walking and social activities. History of Falls: None in the past 3 months She is currently prescribed oxycodone from our office. The patient states the last dose of oxycodone was taken this afternoon. The medications are partially effective. Prior pain treatment has included: Botox injections; Trigger Point Injections; IV Lidocaine infusion 05/04/2020 Last UDS: Summary Report (Summary) Date Value Ref Range Status 01/30/2022 FINAL Final Comment: ====== TOXASSURE COMP DRUG ANALYSIS,UR ====== Test Result Flag Units Drug Present Oxycodone 6739 ng/mg creat Oxymorphone >7299 ng/mg creat Noroxycodone >7299 ng/mg creat Noroxymorphone >7299 ng/mg creat Sources of oxycodone are scheduled prescription medications. Oxymorphone, noroxycodone, and noroxymorphone are expected metabolites of oxycodone. Oxymorphone is also available as a scheduled prescription medication. ====== Test Result Flag Units Ref Range Creatinine 137 mg/dL >=20 ====== Declared Medications: Medication list was not provided. ====== For clinical consultation, please call . ====== REVIEW OF SYSTEMS: GENERAL: No weight loss or fevers RESPIRATORY: Negative for cough CARDIOVASCULAR: Negative for chest pain GI: No nausea, vomiting, or diarrhea. MUSCULOSKELETAL: Positive joint pain or swelling, back pain or muscle pain. PAST MEDICAL HISTORY Diagnosis Date Acute gastritis without mention of hemorrhage CHARCOT Dfmyfct-Ufbmf-umtsf disease, deafness, and intellectual disability syndrome Eczema Chiquis-Danlos syndrome Fibromyalgia GERD (gastroesophageal reflux disease) Loss of weight 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 Other acne Persistent vomiting PAST SURGICAL HISTORY Procedure Laterality Date EAR TUBES HX ESOPHAGOGASTRODUODENOSCOPY TRANSORAL DIAGNOSTIC 01/04/03 EGD EXTRACTION, ERUPTED TOOTH OR EXPOSED ROOT (ELEVATION AND/OR FORCEPS REMOVAL) 99 WISODOM TEETH FOOT SURGERY HX HAMMERTOE REVISION, ONE TOE 95, 97 Bialteral/ hammertoe & arches KNEE SURGERY HX MYRINGOTOMY ASPIR&/EUSTACHIAN TUBE NFLTJ ANES 05/20 Myringotomy/tubes PAST SURGICAL HISTORY OF , , 03, FOOT, KNEE,ANKLES PAST SURGICAL HISTORY OF 2002 MUSCLE BIOPSY PAST SURGICAL HISTORY OF 1997 CARDIAC SURGERY TONSILLECTOMY & ADENOIDECTOMY <AGE 14 TONSILLECTOMY PRIMARY/SECONDARY <AGE 14 1982 Tonsillectomy FAMILY HISTORY Problem Relation Age of Onset other (CHARCOT MAXIM TOOTH) Mother Stroke Paternal Grandfather Hypertension Paternal Grandfather Heart Paternal Grandfather Breast Cancer Maternal Grandmother Breast Cancer Paternal Grandmother Social History Tobacco Use Smoking status: Never Smokeless tobacco: Never Substance Use Topics Alcohol use: Yes Drug use: No Work Status: on chronic disability Allergies: Cephalexin Unknown Adhesive Hives Fragrances Rash, Hives Morphine Hives Perfumes Unknown Adhesive Current Outpatient Medications Medication Sig oxyCODONE concentrate (ROXICODONE) 20 mg/mL concentrated solution Take 0.5-1 mL by mouth every 4 hours as needed for pain for up to 25 days. Take 0.5-1mL every 4 hours as needed for pain for up to 25 days nebivolol (BYSTOLIC) 2.5 mg tablet modafinil (PROVIGIL) 100 mg tablet Take 1 tablet by mouth once daily for 30 days. ipratropium bromide (ATROVENT) 42 mcg (0.06 %) nasal spray SPRAY 2 SPRAYS INTO EACH NOSTRIL TWICE A DAY ondansetron (ZOFRAN) 8 mg tablet ondansetron HCl 8 mg tablet TAKE 1 TABLET BY MOUTH THREE TIMES A DAY megestrol (MEGACE) 400 mg/10 mL (40 mg/mL) suspension megestrol 400 mg/10 mL (40 mg/mL) oral suspension TAKE 2 ML TWICE A DAY BY ORAL ROUTE FOR 90 DAYS. ondansetron orally disintegrating (ZOFRAN ODT) 8 mg disintegrating tablet montelukast 10 mg tablet Take 10 mg by mouth daily at bedtime. Take one(1) tablet daily. No current facility-administered medications for this visit. PHYSICAL EXAMINATION: GENERAL: No weight loss or fevers RESPIRATORY: Negative for cough CARDIOVASCULAR: Negative for chest pain GI: No nausea, vomiting, or diarrhea. MUSCULOSKELETAL: joint pain or swelling, back pain, and muscle pain ASSESSMENT: Patient is stable. Chronic pain is persistent. Medications are helping Capri Aguilar to have an improved quality of life. Patient compliance with Opioid Contract: not applicable Encounter Diagnosis ICD-10-CM 1. 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 Chronic pain syndrome G89.4 4. 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 G43.711 The patient understands the goal of our treatment is a reduction in pain and/or an improved level of functioning with activities of daily living. If at any time the patient does not feel the medications are helping them to achieve these goals, the medications may be discontinued. The patient reports a reduction in pain and/or an improved level of functioning with activities of daily living, denies any significant adverse effects, is compliant with the pain management agreement and there are no signs of medication misuse, abuse or diversion; therefore, the medications will be continued. Continue OxyIR liquid Continue Botox q12 weeks, patient already has future appointment scheduled Continue Trigger Point Injections, patient already has future appointment scheduled. Discussed changing to 0.5% Marcaine for next trigger point injection. She declines further lidocaine infusions F/U in 1 month Demian Forman APRN.CNP documented in this encounter [facility] 04-20-2022 Instructions Demian Forman APRN.CNP - 04/20/2022 2:42 PM EST Continue OxyIR liquid Continue Botox q12 weeks, patient already has future appointment scheduled Continue Trigger Point Injections, patient already has future appointment scheduled. She declines further lidocaine infusions F/U in 1 month documented in this encounter [facility] 02-23-2022 History of Presen t illness Narrative This video visit was performed via [employer] video visit. Patient consented to receive health care services via virtual visit for this encounter Provider Location: Non-[facility] Patient Location: Patient Home or Place of Residence Risks, benefits, and limitations of receiving care virtually were discussed with the patient. The patient expressed understanding and is willing to proceed. Chief Complaint: Pain History of Present Illness: Capri Aguilar is a 46 year old year old female being seen at [facility] for a evaluation and/or management of her chronic pain. The patient was last seen virtually on 01/02/2022. She states that since the last visit symptoms have been stable. She continues to report benefit from the botox and TPI's. The patient reports having no migraines since her last Botox injection done on 01/17/22. She saw her swage tender and was prescribed Provigil. Otherwise, her medical history has not changed and she denies any hospital stays or ER visits. Pain Location: generalized pain, migraines Pain Scale: 4 on 0-10 scale per patient Pain Character: aching and throbbing Timing: occurs constantly Radiation: all over Patient Reports numbness and tingling below knees and elbows bilaterally The pain is exacerbated by activity The pain is mitigated by Trigger Point Injections, Botox injections, medications Symptoms interfere with physical activity, walking and social activities. History of Falls: None in the past 3 months She is currently prescribed oxycodone from our office. The patient states the last dose of oxycodone was taken this afternoon. The medications are partially effective. Prior pain treatment has included: Botox injections; Trigger Point Injections; IV Lidocaine infusion 05/04/2020 REVIEW OF SYSTEMS: GENERAL: No weight loss or fevers RESPIRATORY: Negative for cough CARDIOVASCULAR: Negative for chest pain GI: No nausea, vomiting, or diarrhea. MUSCULOSKELETAL: Positive joint pain or swelling, back pain or muscle pain. PAST MEDICAL HISTORY Diagnosis Date Acute gastritis without mention of hemorrhage CHARCOT Rnlwlxx-Rfddv-wlvvb disease, deafness, and intellectual disability syndrome Eczema Chiquis-Danlos syndrome Fibromyalgia GERD (gastroesophageal reflux disease) Loss of weight 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 Other acne Persistent vomiting PAST SURGICAL HISTORY Procedure Laterality Date EAR TUBES HX ESOPHAGOGASTRODUODENOSCOPY TRANSORAL DIAGNOSTIC 01/04/03 EGD EXTRACTION, ERUPTED TOOTH OR EXPOSED ROOT (ELEVATION AND/OR FORCEPS REMOVAL) 99 WISODOM TEETH FOOT SURGERY HX HAMMERTOE REVISION, ONE TOE 95, 97 Bialteral/ hammertoe & arches KNEE SURGERY HX MYRINGOTOMY ASPIR&/EUSTACHIAN TUBE NFLTJ ANES 05/20 Myringotomy/tubes PAST SURGICAL HISTORY OF , , , FOOT, KNEE,ANKLES PAST SURGICAL HISTORY OF 2002 MUSCLE BIOPSY PAST SURGICAL HISTORY OF 1997 CARDIAC SURGERY TONSILLECTOMY & ADENOIDECTOMY <AGE 14 TONSILLECTOMY PRIMARY/SECONDARY <AGE 14 1982 Tonsillectomy FAMILY HISTORY Problem Relation Age of Onset other (CHARCOT MAXIM TOOTH) Mother Stroke Paternal Grandfather Hypertension Paternal Grandfather Heart Paternal Grandfather Breast Cancer Maternal Grandmother Breast Cancer Paternal Grandmother Social History Tobacco Use Smoking status: Never Smokeless tobacco: Never Substance Use Topics Alcohol use: Yes Drug use: No Work Status: on chronic disability Allergies: Cephalexin Unknown Adhesive Hives Fragrances Rash, Hives Morphine Hives Perfumes Unknown Adhesive Current Outpatient Medications Medication Sig ipratropium bromide (ATROVENT) 42 mcg (0.06 %) nasal spray SPRAY 2 SPRAYS INTO EACH NOSTRIL TWICE A DAY ondansetron (ZOFRAN) 8 mg tablet ondansetron HCl 8 mg tablet TAKE 1 TABLET BY MOUTH THREE TIMES A DAY megestrol (MEGACE) 400 mg/10 mL (40 mg/mL) suspension megestrol 400 mg/10 mL (40 mg/mL) oral suspension TAKE 2 ML TWICE A DAY BY ORAL ROUTE FOR 90 DAYS. ondansetron orally disintegrating (ZOFRAN ODT) 8 mg disintegrating tablet montelukast 10 mg tablet Take 10 mg by mouth daily at bedtime. Take one(1) tablet daily. No current facility-administered medications for this visit. I have reviewed the nurses notes and I am aware of the family/social history. Since the last evaluation the medical history has not changed. PHYSICAL EXAMINATION: GENERAL: No weight loss or fevers RESPIRATORY: Negative for cough CARDIOVASCULAR: Negative for chest pain GI: No nausea, vomiting, or diarrhea. MUSCULOSKELETAL: joint pain or swelling, back pain, and muscle pain ASSESSMENT: Patient is stable. Chronic pain is persistent. Medications are helping Capri Aguilar to have an improved quality of life. Patient compliance with Opioid Contract: not applicable Encounter Diagnosis ICD-10-CM 1. Fibromyalgia M79.7 2. 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 Chronic pain syndrome G89.4 4. 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 G43.711 The patient understands the goal of our treatment is a reduction in pain and/or an improved level of functioning with activities of daily living. If at any time the patient does not feel the medications are helping them to achieve these goals, the medications may be discontinued. The patient reports a reduction in pain and/or an improved level of functioning with activities of daily living, denies any significant adverse effects, is compliant with the pain management agreement and there are no signs of medication misuse, abuse or diversion; therefore, the medications will be continued. Continue OxyIR liquid Continue Botox q12 weeks, patient already has future appointment scheduled Continue Trigger Point Injections, patient already has future appointment scheduled. Discussed changing to 0.5% Marcaine for next trigger point injection. She declines further lidocaine infusions F/U in 1 month Demian Forman APRN.CNP documented in this encounter [facility] 02-23-2022 Instructions Demian Forman APRN.CNP - 02/23/2022 1:22 PM EDT Continue OxyIR liquid Continue Botox q12 weeks, patient already has future appointment scheduled Continue Trigger Point Injections, patient already has future appointment scheduled. She declines further lidocaine infusions F/U in 1 month documented in this encounter [facility] 01-30-2022 Instructions Morteza Meza DO - 01/30/2022 3:22 PM EDT Continue OxyIR liquid 2. Continue Botox q12 weeks, patient already has future appointment scheduled 3. Continue Trigger Point Injections, patient already has future appointment scheduled. Discussed changing to 0.5% Marcaine for next trigger point injection. 4. She declines further lidocaine infusions 5. F/U in 1 month(s) with [facility]ANNER 6. Obtain UDS documented in this encounter [facility] 01-30-2022 History of Presen t illness Narrative Summary: Pain management office follow-up visit DATE: January 30, 2022 Chief Complaint: Whole body pain History of Present Illness: Capri Aguilar is a 46 year old female being seen at [facility] for a evaluation and/or management of their chronic pain. Patient was seen for last virtual visit on 01/02/2022: The overall plan of care was as follows: Continue OxyIR Continue Botox q12 weeks- next injection 01/17/2022 Continue Trigger Point Injections She declines further lidocaine infusions F/U in 1 month(s). Since the last virtual visit she has returned back to the office for a trigger point injection on 12/13/2021 which gave her 80% benefit and a Botox injection on 01/17/2022 which gave her 100% benefit of her migraine headaches. She continues to receive her trigger point injections and Botox injections consistently throughout the year. Her home exercise program consist of cooking and working in her garden and walking the dogs. She denies any other recent hospitalizations or ER visits. She does not wish to have any more steroids in her injections. We discussed using a different type of local anesthetic and the trigger point injections which may provide her with greater benefit. Her insurance is no longer covering compounding creams. We discussed trialing higher strength CBD topicals greater than 1000 mg. She already has her trigger point injections and Botox injection scheduled for the remaining part of the year. She does not wish to pursue infusion therapy. She has noticed that her weight has also declined. She is scheduled to see her provider that manages her POTS syndrome shortly. Pain Location: generalized pain, migraines Pain Scale: 4 on 0-10 scale per patient Pain Character: aching and throbbing Timing: occurs constantly Radiation: all over Patient Reports numbness and tingling below knees and elbows bilaterally The pain is exacerbated by activity The pain is mitigated by Trigger Point Injections, Botox injections, medications Symptoms interfere with physical activity, walking and social activities. History of Falls: None in the past 3 months She is currently prescribed oxycodone from our office. The patient states the last dose of oxycodone was taken this afternoon. The medications are partially effective. Prior pain treatment has included: Botox injections; Trigger Point Injections; IV Lidocaine infusion 05/04/2020 REVIEW OF SYSTEMS: GENERAL: No weight loss, malaise or fevers RESPIRATORY: Negative for cough, hemoptysis, wheezing, COPD, dyspnea or shortness of breath. CARDIOVASCULAR: Negative for chest pain, leg swelling, hypertension, CHF or palpitations GI: No nausea, vomiting, or diarrhea. MUSCULOSKELETAL: Negative for joint pain or swelling, back pain or muscle pain. 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 Other acne Persistent vomiting PAST SURGICAL HISTORY Procedure Laterality Date EAR TUBES HX ESOPHAGOGASTRODUODENOSCOPY TRANSORAL DIAGNOSTIC 01/04/03 EGD EXTRACTION, ERUPTED TOOTH OR EXPOSED ROOT (ELEVATION AND/OR FORCEPS REMOVAL) 99 WISODOM TEETH FOOT SURGERY HX HAMMERTOE REVISION, ONE TOE 95, 97 Bialteral/ hammertoe & arches KNEE SURGERY HX MYRINGOTOMY ASPIR&/EUSTACHIAN TUBE NFLTJ ANES 05/20 Myringotomy/tubes PAST SURGICAL HISTORY OF , 04, 03, 01 FOOT, KNEE,ANKLES PAST SURGICAL HISTORY OF 2002 MUSCLE BIOPSY PAST SURGICAL HISTORY OF 1997 CARDIAC SURGERY TONSILLECTOMY & ADENOIDECTOMY <AGE 14 TONSILLECTOMY PRIMARY/SECONDARY <AGE 14 1982 Tonsillectomy FAMILY HISTORY Problem Relation Age of Onset other (CHARCOT MAXIM TOOTH) Mother Stroke Paternal Grandfather Hypertension Paternal Grandfather Heart Paternal Grandfather Breast Cancer Maternal Grandmother Breast Cancer Paternal Grandmother Social History Tobacco Use Smoking status: Never Smokeless tobacco: Never Substance Use Topics Alcohol use: Yes Drug use: No Work Status: on chronic disability Allergies: Cephalexin Unknown Adhesive Hives Fragrances Rash, Hives Morphine Hives Perfumes Unknown Adhesive Current Outpatient Medications Medication Sig oxyCODONE concentrate (ROXICODONE) 20 mg/mL concentrated solution Take 0.5-1 mL by mouth every 4 hours as needed for pain for up to 25 days. Take 0.5-1mL every 4 hours as needed for pain for up to 25 days. Do not start before 12/20/2021 Do not start before January 17, 2022. ipratropium bromide (ATROVENT) 42 mcg (0.06 %) nasal spray SPRAY 2 SPRAYS INTO EACH NOSTRIL TWICE A DAY ondansetron (ZOFRAN) 8 mg tablet ondansetron HCl 8 mg tablet TAKE 1 TABLET BY MOUTH THREE TIMES A DAY megestrol (MEGACE) 400 mg/10 mL (40 mg/mL) suspension megestrol 400 mg/10 mL (40 mg/mL) oral suspension TAKE 2 ML TWICE A DAY BY ORAL ROUTE FOR 90 DAYS. ondansetron orally disintegrating (ZOFRAN ODT) 8 mg disintegrating tablet montelukast 10 mg tablet Take 10 mg by mouth daily at bedtime. Take one(1) tablet daily. No current facility-administered medications for this visit. I have reviewed the nurses notes and I am aware of the family/social history. Since the last evaluation the medical history has not changed. PHYSICAL EXAMINATION: Vitals: BP 132/81 Pulse 101 Resp 19 Ht 5' 8.4 (1.74m) Wt 102 lb (46.3kg) SpO2 98% BMI 15.33 kg/(m^2). General: well developed, well nourished, in no acute distress. Head: normocephalic and atraumatic. Eyes: PERRL/EOM intact, conjunctiva and sclera clear with out nystagmus. Ears: TM's intact and clear with normal canals with grossly normal hearing. Nose: no deformity, discharge, inflammation, or lesions. Mouth: no deformity or lesions with good dentition. Neck: no masses, thyromegaly, or abnormal cervical nodes. Lungs: clear bilaterally to auscultation. Heart: non-displaced PMI, chest non-tender; regular rate and rhythm, S1, S2 without murmurs, rubs, or gallops Msk: no deformity or scoliosis noted of thoracic or lumbar spine. +4 out of 5 motor strength bilateral legs proximally and distally. +2 out of 4 DTRs L4 and S1 bilaterally. Dorsalis pedis artery pulses are intact. Negative signs of bilateral leg edema or cyanosis noted. Tenderness at lumbar midline paraspinal muscle region with palpation. Sensation is intact to light touch throughout all dermatomes. Pulses: pulses normal in all 4 extremities. Extremities: no clubbing, cyanosis, edema, or deformity noted Neurologic: no focal deficits, cranial nerves II-XII grossly intact Skin: intact without lesions or rashes. Cervical Nodes: no significant adenopathy. Axillary Nodes: no significant adenopathy. Inguinal Nodes: no significant adenopathy. Psych: alert and cooperative; normal mood and affect; normal attention span and concentration. ASSESSMENT: 1. Fibromyalgia 2. Myofascial pain syndrome 3. 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 Chronic pain is persistent. Medications are helping Capri Aguilar to have an improved quality of life. Patient compliance with Opioid Contract: not applicable PDMP website checked and validated. All prescriptions have been APPROPRIATELY filled. No suspicious activity was identified. 01/30/2022 by Morteza Meza DO The patient understands the goal of our treatment is a reduction in pain and/or an improved level of functioning with activities of daily living. If at any time the patient does not feel the medications are helping them to achieve these goals, the medications may be discontinued. The patient reports a reduction in pain and/or an improved level of functioning with activities of daily living, denies any significant adverse effects, is compliant with the pain management agreement and there are no signs of medication misuse, abuse or diversion; therefore, the medications will be continued. Morteza Meza DO documented in this encounter [facility] 01-02-2022 Instructions Demian Forman APRN.VISHAL - 01/02/2022 4:06 PM EDT Continue OxyIR Continue Botox q12 weeks- next injection 01/17/2022 Continue Trigger Point Injections She declines further lidocaine infusions F/U in 1 month(s). documented in this encounter [facility] 01-02-2022 History of Presen t illness Narrative This visit was conducted as a virtual visit. Provider Location: Non-[facility] Patient Location: Patient Home or Place of Residence Chief Complaint: Pain History of Present Illness: Capri Aguilar is a 46 year old year old female being seen at [facility] for a evaluation and/or management of their chronic pain. The patient was last seen as a virtual visit on 12/08/2021. She states that since the last visit symptoms have been stable. The patient reports having no migraines since her last Botox injection done on 10/08/21. Pain Location: generalized pain, migraines Pain Scale: 5 on 0-10 scale per patient Pain Character: aching and throbbing Timing: occurs constantly Radiation: all over Patient Reports numbness and tingling below knees and elbows bilaterally The pain is exacerbated by activity The pain is mitigated by Trigger Point Injections, Botox injections, medications Symptoms interfere with physical activity, walking and social activities. History of Falls: 0 None in the past 3 months She is currently prescribed oxycodone from our office. The patient states the last dose of oxycodone was taken this afternoon. The medications are partially effective. Prior pain treatment has included: Botox injections; Trigger Point Injections; IV Lidocaine infusion 05/04/2020 REVIEW OF SYSTEMS: GENERAL: No weight loss, malaise or fevers RESPIRATORY: Negative for cough, hemoptysis, wheezing, COPD, dyspnea or shortness of breath. CARDIOVASCULAR: Negative for chest pain, leg swelling, hypertension, CHF or palpitations GI: No nausea, vomiting, or diarrhea. 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 Other acne Persistent vomiting PAST SURGICAL HISTORY Procedure Laterality Date EAR TUBES HX ESOPHAGOGASTRODUODENOSCOPY TRANSORAL DIAGNOSTIC 01/04/03 EGD EXTRACTION, ERUPTED TOOTH OR EXPOSED ROOT (ELEVATION AND/OR FORCEPS REMOVAL) 99 WISODOM TEETH FOOT SURGERY HX HAMMERTOE REVISION, ONE TOE 95, 97 Bialteral/ hammertoe & arches KNEE SURGERY HX MYRINGOTOMY ASPIR&/EUSTACHIAN TUBE NFLTJ ANES 05/20 Myringotomy/tubes PAST SURGICAL HISTORY OF , , , FOOT, KNEE,ANKLES PAST SURGICAL HISTORY OF 2002 MUSCLE BIOPSY PAST SURGICAL HISTORY OF 1997 CARDIAC SURGERY TONSILLECTOMY & ADENOIDECTOMY <AGE 14 TONSILLECTOMY PRIMARY/SECONDARY <AGE 14 1982 Tonsillectomy FAMILY HISTORY Problem Relation Age of Onset other (CHARCOT MAXIM TOOTH) Mother Stroke Paternal Grandfather Hypertension Paternal Grandfather Heart Paternal Grandfather Breast Cancer Maternal Grandmother Breast Cancer Paternal Grandmother Social History Tobacco Use Smoking status: Never Smoker Smokeless tobacco: Never Used Substance Use Topics Alcohol use: Yes Drug use: No Work Status: not working Allergies: Cephalexin Unknown Fragrances Rash, Hives Morphine Hives Perfumes Unknown Adhesive Current Outpatient Medications Medication Sig [START ON 01/17/2022] oxyCODONE concentrate (ROXICODONE) 20 mg/mL concentrated solution Take 0.5-1 mL by mouth every 4 hours as needed for pain for up to 25 days. Take 0.5-1mL every 4 hours as needed for pain for up to 25 days. Do not start before 12/20/2021 Do not start before January 17, 2022. ipratropium bromide (ATROVENT) 42 mcg (0.06 %) nasal spray SPRAY 2 SPRAYS INTO EACH NOSTRIL TWICE A DAY lidocaine-prilocaine (EMLA) 2.5-2.5 % cream lidocaine-prilocaine 2.5 %-2.5 % topical cream ondansetron (ZOFRAN) 8 mg tablet ondansetron HCl 8 mg tablet TAKE 1 TABLET BY MOUTH THREE TIMES A DAY megestrol (MEGACE) 400 mg/10 mL (40 mg/mL) suspension megestrol 400 mg/10 mL (40 mg/mL) oral suspension TAKE 2 ML TWICE A DAY BY ORAL ROUTE FOR 90 DAYS. ondansetron orally disintegrating (ZOFRAN ODT) 8 mg disintegrating tablet montelukast 10 mg tablet Take 10 mg by mouth daily at bedtime. Take one(1) tablet daily. No current facility-administered medications for this visit. I have reviewed the nurses notes and I am aware of the family/social history. Since the last evaluation the medical history has not changed. ASSESSMENT: Encounter Diagnosis ICD-10-CM 1. Migraine variant G43.809 2. Fibromyalgia M79.7 3. 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 Chronic pain syndrome G89.4 oxyCODONE concentrate (ROXICODONE) 20 mg/mL concentrated solution Patient is stable. Chronic pain is persistent. Medications are helping Capri Aguilar to have an improved quality of life. Patient compliance with Opioid Contract: patient is compliant PLAN: The patient understands the goal of our treatment is a reduction in pain and/or an improved level of functioning with activities of daily living. If at any time the patient does not feel the medications are helping them to achieve these goals, the medications may be discontinued. The patient reports a reduction in pain and/or an improved level of functioning with activities of daily living, denies any significant adverse effects, is compliant with the pain management agreement and there are no signs of medication misuse, abuse or diversion; therefore, the medications will be continued. Continue OxyIR Continue Botox q12 weeks- next injection 01/17/2022 Continue Trigger Point Injections She declines further lidocaine infusions F/U in 1 month(s). Demian Forman APRN.CNP documented in this encounter [facility] 12-13-2021 Miscellaneous Notes Summary: TRIGGER POINT INJECTIONS PROCEDURE: Trigger point injection at __cervical, thoracic, lumbar and rhomboid paraspinal mm. group, trapezius and B/L scalene mm. groups____. DATE OF SERVICE: 10/11/21 PREPROCEDURE DIAGNOSIS: Myofascial pain syndrome and Fibromyalgia POSTPROCEDURE DIAGNOSIS: Same. ANESTHESIA: Local. COMPLICATIONS: None. FUNCTIONAL ASSESSMENT: See nurses documentation. Pt had 80% benefit for 2 months from the last TPI. Pt had 100% benefit from the last Botox injection. She had no migraines since the last Botox. CONSENT: Risks of the procedure including bleeding, infection, nerve damage, seizure, abscess formation, hematoma formation, headache, failure of the pain to improve and potential worsening of the pain, were explained in full to the patient who verbalized understanding and wishes to proceed with the injection at this time. Written informed consent was thereby obtained. BRIEF HISTORY: See charts. DESCRIPTION OF PROCEDURE: After informed consent was obtained, the patient was taken to the procedure room and placed in the ____prone and supine position. The patient's muscle groups, described above, were identified and the tender trigger points within the muscles were marked with surgical pen. The muscle groups were then prepped and draped in sterile fashion with ___Chloroprep swabs . A ___25 gauge 1 inch needle was attached to a syringe containing ____40 ml 0.25% Marcaine mixed with Kenalog 40 mg . The tip of the needle was then advanced into the belly of the taut muscle band (trigger point) identified previously and repositioned such that the myofascial pain was maximal. After negative aspiration, a total of ___40 ml 0.25% Marcaine with Kenalog 40mg _ of the above solution was injected into the previously identified muscle groups. The patient tolerated the procedure well and all needles were removed intact. The patient s vitals were monitored for an appropriate time interval and remained stable. POST-PROCEDURE ORDERS: Progressive ambulation as tolerated Condition: Stable Diet as tolerated Disposition: DC IV prior to discharge Additional Blocks Give patient homegoing instructions Additional: Discharge according to approved criteria documented in this encounter [facility] 12-08-2021 History of Presen t illness Narrative Summary: Follow Up- Virtual Visit This visit was conducted as a virtual visit. DATE: December 08, 2021 Chief Complaint: Generalized Pain, Migraines History of Present Illness: Capri Aguilar is a 46 year old year old female being seen at [facility] for a evaluation and/or management of their chronic pain. The patient was last seen as a virtual visit on 11/15/2021. She states that since the last visit symptoms have been stable. The patient reports having no migraines since her last Botox injection done on 10/08/21. She reports 80% benefit from the last Trigger Point Injections done on 10/11/21. Pain Location: generalized pain, migraines Pain Scale: 5 on 0-10 scale per patient Pain Character: aching and throbbing Timing: occurs constantly Radiation: all over Patient Reports numbness and tingling below knees and elbows bilaterally The pain is exacerbated by activity The pain is mitigated by Trigger Point Injections, Botox injections, medications Symptoms interfere with physical activity, walking and social activities. History of Falls: 0 None in the past 3 months She is currently prescribed oxycodone from our office. The patient states the last dose of oxycodone was taken this afternoon. The medications are partially effective. Prior pain treatment has included: Botox injections 10/18/21; Trigger Point Injections 10/11/21; IV Lidocaine infusion 05/04/2020 REVIEW OF SYSTEMS: GENERAL: No weight loss, malaise or fevers RESPIRATORY: Negative for cough, hemoptysis, wheezing, COPD, dyspnea or shortness of breath. CARDIOVASCULAR: Negative for chest pain, leg swelling, hypertension, CHF or palpitations GI: No nausea, vomiting, or diarrhea. 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 Other acne Persistent vomiting PAST SURGICAL HISTORY Procedure Laterality Date EAR TUBES HX ESOPHAGOGASTRODUODENOSCOPY TRANSORAL DIAGNOSTIC 01/04/03 EGD EXTRACTION, ERUPTED TOOTH OR EXPOSED ROOT (ELEVATION AND/OR FORCEPS REMOVAL) 99 WISODOM TEETH FOOT SURGERY HX HAMMERTOE REVISION, ONE TOE 95, 97 Bialteral/ hammertoe & arches KNEE SURGERY HX MYRINGOTOMY ASPIR&/EUSTACHIAN TUBE NFLTJ ANES 05/20 Myringotomy/tubes PAST SURGICAL HISTORY OF , 04, 03, 01 FOOT, KNEE,ANKLES PAST SURGICAL HISTORY OF 2002 MUSCLE BIOPSY PAST SURGICAL HISTORY OF 1997 CARDIAC SURGERY TONSILLECTOMY & ADENOIDECTOMY <AGE 14 TONSILLECTOMY PRIMARY/SECONDARY <AGE 14 1982 Tonsillectomy FAMILY HISTORY Problem Relation Age of Onset other (CHARCOT MAXIM TOOTH) Mother Stroke Paternal Grandfather Hypertension Paternal Grandfather Heart Paternal Grandfather Breast Cancer Maternal Grandmother Breast Cancer Paternal Grandmother Social History Tobacco Use Smoking status: Never Smoker Smokeless tobacco: Not on file Substance Use Topics Alcohol use: Yes Drug use: No Work Status: not working Allergies: Fragrances Rash, Hives Adhesive Morphine Hives Current Outpatient Medications Medication Sig carisoprodol (SOMA) 350 mg tablet Soma 350 mg tablet chlorzoxazone (LORZONE) 375 mg tab Take by mouth. lidocaine (ANECREAM5) crea lidocaine 5% cream Naltrexone HCL, Bulk, 100 % powd naltrexone HCl (bulk) 100% powder fluticasone (FLONASE) 50 mcg/actuation nasal spray Use 1 [facility] in each nostril once daily. megestrol (MEGACE) 40 mg tablet once daily. ondansetron orally disintegrating (ZOFRAN ODT) 8 mg disintegrating tablet oxyCODONE concentrate (ROXICODONE) 20 mg/mL concentrated solution mupirocin 2 % ointment Apply to affected open sores selectively three(3) times daily for 1-2wks until healed and can switch to Aquaphor Healing Ointment for application to residual wound(s) after 1-2wks if still not healed but no longer infected. tretinoin (AVITA) 0.025 % topical cream Apply small amount (eg., pea-sized glob divided up) to entire area of acne on face every other day to once daily (qoday to qday) only in the evening for overnight, as tolerated and directed. Apply at least 1/2 hr after washing face and at least 1/2 hr before bedtime, for just overnight and then wash off in the AM. triamcinolone acetonide 0.1 % cream Apply to eczematous dermatitis rash of arms and hands twice to three times per day until clear and then stop or taper off as able; AVOID face, eyes, eyelids and deep fold areas of groin and underarms. clobetasol 0.05 % ointment Apply to affected area(s) of acute dermatitis allergic rash spots on chest elsewhere on open areas of trunk, arms, legs bid (twice per day) selectively until clear as tolerated. AVOID face, eyes, and deep fold areas. montelukast 10 mg tablet Take 10 mg by mouth daily at bedtime. Take one(1) tablet daily. No current facility-administered medications for this visit. I have reviewed the nurses notes and I am aware of the family/social history. Since the last evaluation the medical history has not changed. ASSESSMENT: Assessment : No diagnosis found. Patient is stable. Chronic pain is persistent. Medications are helping Capri Aguilar to have an improved quality of life. Patient compliance with Opioid Contract: patient is compliant PDMP website checked and validated. All prescriptions have been APPROPRIATELY filled. No suspicious activity was identified. 12/08/2021 by Rashida Lange APRN.CASING PULLER PLAN: The patient understands the goal of our treatment is a reduction in pain and/or an improved level of functioning with activities of daily living. If at any time the patient does not feel the medications are helping them to achieve these goals, the medications may be discontinued. The patient reports a reduction in pain and/or an improved level of functioning with activities of daily living, denies any significant adverse effects, is compliant with the pain management agreement and there are no signs of medication misuse, abuse or diversion; therefore, the medications will be continued. OARRS reviewed Continue OxyIR Continue Botox q12 weeks- next injection 01/17/2022 Scheduled for Trigger Point Injections 12/13/21 Declines further lidocaine infusions Signed Prescriptions Disp Refills oxyCODONE concentrate (ROXICODONE) 20 mg/mL concentrated solution 150 mL 0 Sig: Take 0.5 mL by mouth every 4 hours as needed for pain for up to 25 days. Take 0.5-1mL every 4 hours as needed for pain for up to 25 days. Do not start before 12/20/2021 Do not start before December 20, 2021. ADRRICK Class: C-II IDALMIS: No F/U in 1 month(s). *January follow up is 01/30/[address] Meza* Rashida Lange APRN.VISHAL documented in this encounter [facility] documented as of this encounter (statuses as of 09/21/2021) [facility] History of Past illness Narrative* Problem Noted Date Resolved Date Other chronic dermatitis due to solar radiation 08/09/2008 10/14/2012 Pyoderma, unspecified 08/09/2008 10/14/2012 Other acne 07/02/2007 10/14/2012 Contact dermatitis and other eczema, due to unspecified cause 07/02/2007 10/14/2012 Contact dermatitis and other eczema due to other specified agent 07/02/2007 10/14/2012 Seborrheic dermatitis, unspecified 07/02/2007 10/14/2012 XEROSIS///SEBACEOUS GLAND DIS NEC 07/02/2007 10/14/2012 Unspecified pruritic disorder 07/02/2007 documented as of this encounter (statuses as of 10/12/2021) [facility] History of Past illness Narrative* Problem Noted Date Resolved Date Other chronic dermatitis due to solar radiation 08/09/2008 10/14/2012 Pyoderma, unspecified 08/09/2008 10/14/2012 Other acne 07/02/2007 10/14/2012 Contact dermatitis and other eczema, due to unspecified cause 07/02/2007 10/14/2012 Contact dermatitis and other eczema due to other specified agent 07/02/2007 10/14/2012 Seborrheic dermatitis, unspecified 07/02/2007 10/14/2012 XEROSIS///SEBACEOUS GLAND DIS NEC 07/02/2007 10/14/2012 Unspecified pruritic disorder 07/02/2007 documented as of this encounter (statuses as of 10/19/2021) [facility] History of Past illness Narrative* Problem Noted Date Resolved Date Other chronic dermatitis due to solar radiation 08/09/2008 10/14/2012 Pyoderma, unspecified 08/09/2008 10/14/2012 Other acne 07/02/2007 10/14/2012 Contact dermatitis and other eczema, due to unspecified cause 07/02/2007 10/14/2012 Contact dermatitis and other eczema due to other specified agent 07/02/2007 10/14/2012 Seborrheic dermatitis, unspecified 07/02/2007 10/14/2012 XEROSIS///SEBACEOUS GLAND DIS NEC 07/02/2007 10/14/2012 Unspecified pruritic disorder 07/02/2007 documented as of this encounter (statuses as of 11/16/2021) [facility] History of Past illness Narrative* Problem Noted Date Resolved Date Other chronic dermatitis due to solar radiation 08/09/2008 10/14/2012 Pyoderma, unspecified 08/09/2008 10/14/2012 Other acne 07/02/2007 10/14/2012 Contact dermatitis and other eczema, due to unspecified cause 07/02/2007 10/14/2012 Contact dermatitis and other eczema due to other specified agent 07/02/2007 10/14/2012 Seborrheic dermatitis, unspecified 07/02/2007 10/14/2012 XEROSIS///SEBACEOUS GLAND DIS NEC 07/02/2007 10/14/2012 Unspecified pruritic disorder 07/02/2007 documented as of this encounter (statuses as of 11/22/2021) [facility] History of Past illness Narrative* Problem Noted Date Resolved Date Other chronic dermatitis due to solar radiation 08/09/2008 10/14/2012 Pyoderma, unspecified 08/09/2008 10/14/2012 Other acne 07/02/2007 10/14/2012 Contact dermatitis and other eczema, due to unspecified cause 07/02/2007 10/14/2012 Contact dermatitis and other eczema due to other specified agent 07/02/2007 10/14/2012 Seborrheic dermatitis, unspecified 07/02/2007 10/14/2012 XEROSIS///SEBACEOUS GLAND DIS NEC 07/02/2007 10/14/2012 Unspecified pruritic disorder 07/02/2007 documented as of this encounter (statuses as of 12/08/2021) [facility] History of Past illness Narrative* Problem Noted Date Resolved Date Other chronic dermatitis due to solar radiation 08/09/2008 10/14/2012 Pyoderma, unspecified 08/09/2008 10/14/2012 Other acne 07/02/2007 10/14/2012 Contact dermatitis and other eczema, due to unspecified cause 07/02/2007 10/14/2012 Contact dermatitis and other eczema due to other specified agent 07/02/2007 10/14/2012 Seborrheic dermatitis, unspecified 07/02/2007 10/14/2012 XEROSIS///SEBACEOUS GLAND DIS NEC 07/02/2007 10/14/2012 Unspecified pruritic disorder 07/02/2007 documented as of this encounter (statuses as of 12/14/2021) [facility] History of Past illness Narrative* Problem Noted Date Resolved Date Other chronic dermatitis due to solar radiation 08/09/2008 10/14/2012 Pyoderma, unspecified 08/09/2008 10/14/2012 Other acne 07/02/2007 10/14/2012 Contact dermatitis and other eczema, due to unspecified cause 07/02/2007 10/14/2012 Contact dermatitis and other eczema due to other specified agent 07/02/2007 10/14/2012 Seborrheic dermatitis, unspecified 07/02/2007 10/14/2012 XEROSIS///SEBACEOUS GLAND DIS NEC 07/02/2007 10/14/2012 Unspecified pruritic disorder 07/02/2007 documented as of this encounter (statuses as of 12/26/2021) [facility] History of Past illness Narrative* Problem Noted Date Resolved Date Other chronic dermatitis due to solar radiation 08/09/2008 10/14/2012 Pyoderma, unspecified 08/09/2008 10/14/2012 Other acne 07/02/2007 10/14/2012 Contact dermatitis and other eczema, due to unspecified cause 07/02/2007 10/14/2012 Contact dermatitis and other eczema due to other specified agent 07/02/2007 10/14/2012 Seborrheic dermatitis, unspecified 07/02/2007 10/14/2012 XEROSIS///SEBACEOUS GLAND DIS NEC 07/02/2007 10/14/2012 Unspecified pruritic disorder 07/02/2007 documented as of this encounter (statuses as of 01/02/2022) [facility] History of Past illness Narrative* Problem Noted Date Resolved Date Other chronic dermatitis due to solar radiation 08/09/2008 10/14/2012 Pyoderma, unspecified 08/09/2008 10/14/2012 Other acne 07/02/2007 10/14/2012 Contact dermatitis and other eczema, due to unspecified cause 07/02/2007 10/14/2012 Contact dermatitis and other eczema due to other specified agent 07/02/2007 10/14/2012 Seborrheic dermatitis, unspecified 07/02/2007 10/14/2012 XEROSIS///SEBACEOUS GLAND DIS NEC 07/02/2007 10/14/2012 Unspecified pruritic disorder 07/02/2007 documented as of this encounter (statuses as of 01/31/2022) [facility] History of Past illness Narrative* Problem Noted Date Resolved Date Other chronic dermatitis due to solar radiation 08/09/2008 10/14/2012 Pyoderma, unspecified 08/09/2008 10/14/2012 Other acne 07/02/2007 10/14/2012 Contact dermatitis and other eczema, due to unspecified cause 07/02/2007 10/14/2012 Contact dermatitis and other eczema due to other specified agent 07/02/2007 10/14/2012 Seborrheic dermatitis, unspecified 07/02/2007 10/14/2012 XEROSIS///SEBACEOUS GLAND DIS NEC 07/02/2007 10/14/2012 Unspecified pruritic disorder 07/02/2007 documented as of this encounter (statuses as of 02/23/2022) [facility] History of Past illness Narrative* Problem Noted Date Resolved Date Other chronic dermatitis due to solar radiation 08/09/2008 10/14/2012 Pyoderma, unspecified 08/09/2008 10/14/2012 Other acne 07/02/2007 10/14/2012 Contact dermatitis and other eczema, due to unspecified cause 07/02/2007 10/14/2012 Contact dermatitis and other eczema due to other specified agent 07/02/2007 10/14/2012 Seborrheic dermatitis, unspecified 07/02/2007 10/14/2012 XEROSIS///SEBACEOUS GLAND DIS NEC 07/02/2007 10/14/2012 Unspecified pruritic disorder 07/02/2007 documented as of this encounter (statuses as of 04/20/2022) [facility] History of Past illness Narrative* Problem Noted Date Resolved Date Other chronic dermatitis due to solar radiation 08/09/2008 10/14/2012 Pyoderma, unspecified 08/09/2008 10/14/2012 Other acne 07/02/2007 10/14/2012 Contact dermatitis and other eczema, due to unspecified cause 07/02/2007 10/14/2012 Contact dermatitis and other eczema due to other specified agent 07/02/2007 10/14/2012 Seborrheic dermatitis, unspecified 07/02/2007 10/14/2012 XEROSIS///SEBACEOUS GLAND DIS NEC 07/02/2007 10/14/2012 Unspecified pruritic disorder 07/02/2007 documented as of this encounter (statuses as of 04/25/2022) [facility] History of Past illness Narrative* Problem Noted Date Resolved Date Other chronic dermatitis due to solar radiation 08/09/2008 10/14/2012 Pyoderma, unspecified 08/09/2008 10/14/2012 Other acne 07/02/2007 10/14/2012 Contact dermatitis and other eczema, due to unspecified cause 07/02/2007 10/14/2012 Contact dermatitis and other eczema due to other specified agent 07/02/2007 10/14/2012 Seborrheic dermatitis, unspecified 07/02/2007 10/14/2012 XEROSIS///SEBACEOUS GLAND DIS NEC 07/02/2007 10/14/2012 Unspecified pruritic disorder 07/02/2007 documented as of this encounter (statuses as of 04/26/2022) [facility] History of Past illness Narrative* Problem Noted Date Resolved Date Other chronic dermatitis due to solar radiation 08/09/2008 10/14/2012 Pyoderma, unspecified 08/09/2008 10/14/2012 Other acne 07/02/2007 10/14/2012 Contact dermatitis and other eczema, due to unspecified cause 07/02/2007 10/14/2012 Contact dermatitis and other eczema due to other specified agent 07/02/2007 10/14/2012 Seborrheic dermatitis, unspecified 07/02/2007 10/14/2012 XEROSIS///SEBACEOUS GLAND DIS NEC 07/02/2007 10/14/2012 Unspecified pruritic disorder 07/02/2007 documented as of this encounter (statuses as of 05/07/2022) [facility] History of Past illness Narrative* Problem Noted Date Resolved Date Other chronic dermatitis due to solar radiation 08/09/2008 10/14/2012 Pyoderma, unspecified 08/09/2008 10/14/2012 Other acne 07/02/2007 10/14/2012 Contact dermatitis and other eczema, due to unspecified cause 07/02/2007 10/14/2012 Contact dermatitis and other eczema due to other specified agent 07/02/2007 10/14/2012 Seborrheic dermatitis, unspecified 07/02/2007 10/14/2012 XEROSIS///SEBACEOUS GLAND DIS NEC 07/02/2007 10/14/2012 Unspecified pruritic disorder 07/02/2007 documented as of this encounter (statuses as of 06/12/2022) [facility] History of Past illness Narrative* Problem Noted Date Resolved Date Other chronic dermatitis due to solar radiation 08/09/2008 10/14/2012 Pyoderma, unspecified 08/09/2008 10/14/2012 Other acne 07/02/2007 10/14/2012 Contact dermatitis and other eczema, due to unspecified cause 07/02/2007 10/14/2012 Contact dermatitis and other eczema due to other specified agent 07/02/2007 10/14/2012 Seborrheic dermatitis, unspecified 07/02/2007 10/14/2012 XEROSIS///SEBACEOUS GLAND DIS NEC 07/02/2007 10/14/2012 Unspecified pruritic disorder 07/02/2007 documented as of this encounter (statuses as of 07/03/2022) [facility] History of Past illness Narrative* Problem Noted Date Resolved Date Other chronic dermatitis due to solar radiation 08/09/2008 10/14/2012 Pyoderma, unspecified 08/09/2008 10/14/2012 Other acne 07/02/2007 10/14/2012 Contact dermatitis and other eczema, due to unspecified cause 07/02/2007 10/14/2012 Contact dermatitis and other eczema due to other specified agent 07/02/2007 10/14/2012 Seborrheic dermatitis, unspecified 07/02/2007 10/14/2012 XEROSIS///SEBACEOUS GLAND DIS NEC 07/02/2007 10/14/2012 Unspecified pruritic disorder 07/02/2007 documented as of this encounter (statuses as of 07/10/2022) [facility] History of Past illness Narrative* Problem Noted Date Resolved Date Other chronic dermatitis due to solar radiation 08/09/2008 10/14/2012 Pyoderma, unspecified 08/09/2008 10/14/2012 Other acne 07/02/2007 10/14/2012 Contact dermatitis and other eczema, due to unspecified cause 07/02/2007 10/14/2012 Contact dermatitis and other eczema due to other specified agent 07/02/2007 10/14/2012 Seborrheic dermatitis, unspecified 07/02/2007 10/14/2012 XEROSIS///SEBACEOUS GLAND DIS NEC 07/02/2007 10/14/2012 Unspecified pruritic disorder 07/02/2007 documented as of this encounter (statuses as of 07/26/2022) [facility] History of Past illness Narrative* Problem Noted Date Resolved Date Other chronic dermatitis due to solar radiation 08/09/2008 10/14/2012 Pyoderma, unspecified 08/09/2008 10/14/2012 Other acne 07/02/2007 10/14/2012 Contact dermatitis and other eczema, due to unspecified cause 07/02/2007 10/14/2012 Contact dermatitis and other eczema due to other specified agent 07/02/2007 10/14/2012 Seborrheic dermatitis, unspecified 07/02/2007 10/14/2012 XEROSIS///SEBACEOUS GLAND DIS NEC 07/02/2007 10/14/2012 Unspecified pruritic disorder 07/02/2007 documented as of this encounter (statuses as of 08/02/2022) [facility] History of Past illness Narrative* Problem Noted Date Resolved Date Other chronic dermatitis due to solar radiation 08/09/2008 10/14/2012 Pyoderma, unspecified 08/09/2008 10/14/2012 Other acne 07/02/2007 10/14/2012 Contact dermatitis and other eczema, due to unspecified cause 07/02/2007 10/14/2012 Contact dermatitis and other eczema due to other specified agent 07/02/2007 10/14/2012 Seborrheic dermatitis, unspecified 07/02/2007 10/14/2012 XEROSIS///SEBACEOUS GLAND DIS NEC 07/02/2007 10/14/2012 Unspecified pruritic disorder 07/02/2007 documented as of this encounter (statuses as of 08/21/2022) [facility] History of Past illness Narrative* Problem Noted Date Resolved Date Other chronic dermatitis due to solar radiation 08/09/2008 10/14/2012 Pyoderma, unspecified 08/09/2008 10/14/2012 Other acne 07/02/2007 10/14/2012 Contact dermatitis and other eczema, due to unspecified cause 07/02/2007 10/14/2012 Contact dermatitis and other eczema due to other specified agent 07/02/2007 10/14/2012 Seborrheic dermatitis, unspecified 07/02/2007 10/14/2012 XEROSIS///SEBACEOUS GLAND DIS NEC 07/02/2007 10/14/2012 Unspecified pruritic disorder 07/02/2007 documented as of this encounter (statuses as of 08/24/2022) [facility] History of Past illness Narrative* Problem Noted Date Resolved Date Other chronic dermatitis due to solar radiation 08/09/2008 10/14/2012 Pyoderma, unspecified 08/09/2008 10/14/2012 Other acne 07/02/2007 10/14/2012 Contact dermatitis and other eczema, due to unspecified cause 07/02/2007 10/14/2012 Contact dermatitis and other eczema due to other specified agent 07/02/2007 10/14/2012 Seborrheic dermatitis, unspecified 07/02/2007 10/14/2012 XEROSIS///SEBACEOUS GLAND DIS NEC 07/02/2007 10/14/2012 Unspecified pruritic disorder 07/02/2007 documented as of this encounter (statuses as of 09/13/2022) [facility] History of Past illness Narrative* Problem Noted Date Resolved Date Other chronic dermatitis due to solar radiation 08/09/2008 10/14/2012 Pyoderma, unspecified 08/09/2008 10/14/2012 Other acne 07/02/2007 10/14/2012 Contact dermatitis and other eczema, due to unspecified cause 07/02/2007 10/14/2012 Contact dermatitis and other eczema due to other specified agent 07/02/2007 10/14/2012 Seborrheic dermatitis, unspecified 07/02/2007 10/14/2012 XEROSIS///SEBACEOUS GLAND DIS NEC 07/02/2007 10/14/2012 Unspecified pruritic disorder 07/02/2007 documented as of this encounter (statuses as of 10/11/2022) [facility] History of Past illness Narrative* Problem Noted Date Resolved Date Other chronic dermatitis due to solar radiation 08/09/2008 10/14/2012 Pyoderma, unspecified 08/09/2008 10/14/2012 Other acne 07/02/2007 10/14/2012 Contact dermatitis and other eczema, due to unspecified cause 07/02/2007 10/14/2012 Contact dermatitis and other eczema due to other specified agent 07/02/2007 10/14/2012 Seborrheic dermatitis, unspecified 07/02/2007 10/14/2012 XEROSIS///SEBACEOUS GLAND DIS NEC 07/02/2007 10/14/2012 Unspecified pruritic disorder 07/02/2007 documented as of this encounter (statuses as of 10/17/2022) [facility] History of Past illness Narrative* Problem Noted Date Resolved Date Other chronic dermatitis due to solar radiation 08/09/2008 10/14/2012 Pyoderma, unspecified 08/09/2008 10/14/2012 Other acne 07/02/2007 10/14/2012 Contact dermatitis and other eczema, due to unspecified cause 07/02/2007 10/14/2012 Contact dermatitis and other eczema due to other specified agent 07/02/2007 10/14/2012 Seborrheic dermatitis, unspecified 07/02/2007 10/14/2012 XEROSIS///SEBACEOUS GLAND DIS NEC 07/02/2007 10/14/2012 Unspecified pruritic disorder 07/02/2007 documented as of this encounter (statuses as of 10/19/2022) [facility] History of Past illness Narrative* Problem Noted Date Resolved Date Other chronic dermatitis due to solar radiation 08/09/2008 10/14/2012 Pyoderma, unspecified 08/09/2008 10/14/2012 Other acne 07/02/2007 10/14/2012 Contact dermatitis and other eczema, due to unspecified cause 07/02/2007 10/14/2012 Contact dermatitis and other eczema due to other specified agent 07/02/2007 10/14/2012 Seborrheic dermatitis, unspecified 07/02/2007 10/14/2012 XEROSIS///SEBACEOUS GLAND DIS NEC 07/02/2007 10/14/2012 Unspecified pruritic disorder 07/02/2007 documented as of this encounter (statuses as of 11/06/2022) [facility] History of Past illness Narrative* Problem Noted Date Resolved Date Other chronic dermatitis due to solar radiation 08/09/2008 10/14/2012 Pyoderma, unspecified 08/09/2008 10/14/2012 Other acne 07/02/2007 10/14/2012 Contact dermatitis and other eczema, due to unspecified cause 07/02/2007 10/14/2012 Contact dermatitis and other eczema due to other specified agent 07/02/2007 10/14/2012 Seborrheic dermatitis, unspecified 07/02/2007 10/14/2012 XEROSIS///SEBACEOUS GLAND DIS NEC 07/02/2007 10/14/2012 Unspecified pruritic disorder 07/02/2007 documented as of this encounter (statuses as of 11/28/2022) [facility] History of Past illness Narrative* Problem Noted Date Diagnosed Date Resolved Date Other chronic dermatitis due to solar radiation 08/09/2008 10/14/2012 Pyoderma, unspecified 08/09/20082012 Other acne 07/02/2007 10/14/2012 Contact dermatitis and other eczema, due to unspecified cause 07/02/2007 10/14/2012 Contact dermatitis and other eczema due to other specified agent 07/02/2007 10/14/2012 Seborrheic dermatitis, unspecified 07/02/2007 10/14/2012 XEROSIS///SEBACEOUS GLAND DIS NEC 07/02/2007 10/14/2012 Unspecified pruritic disorder 07/02/2007 10/14/2012 documented as of this encounter (statuses as of 12/18/2022) [facility] History of Past illness Narrative* Problem Noted Date Diagnosed Date Resolved Date Other chronic dermatitis due to solar radiation 08/09/2008 10/14/2012 Pyoderma, unspecified 08/09/20082012 Other acne 07/02/2007 10/14/2012 Contact dermatitis and other eczema, due to unspecified cause 07/02/2007 10/14/2012 Contact dermatitis and other eczema due to other specified agent 07/02/2007 10/14/2012 Seborrheic dermatitis, unspecified 07/02/2007 10/14/2012 XEROSIS///SEBACEOUS GLAND DIS NEC 07/02/2007 10/14/2012 Unspecified pruritic disorder 07/02/2007 10/14/2012 documented as of this encounter (statuses as of 12/20/2022) [facility] History of Past illness Narrative* Problem Noted Date Diagnosed Date Resolved Date Other chronic dermatitis due to solar radiation 08/09/2008 10/14/2012 Pyoderma, unspecified 08/09/20082012 Other acne 07/02/2007 10/14/2012 Contact dermatitis and other eczema, due to unspecified cause 07/02/2007 10/14/2012 Contact dermatitis and other eczema due to other specified agent 07/02/2007 10/14/2012 Seborrheic dermatitis, unspecified 07/02/2007 10/14/2012 XEROSIS///SEBACEOUS GLAND DIS NEC 07/02/2007 10/14/2012 Unspecified pruritic disorder 07/02/2007 10/14/2012 documented as of this encounter (statuses as of 01/24/2023) [facility] History of Past illness Narrative* Problem Noted Date Diagnosed Date Resolved Date Other chronic dermatitis due to solar radiation 08/09/2008 10/14/2012 Pyoderma, unspecified 08/09/20082012 Other acne 07/02/2007 10/14/2012 Contact dermatitis and other eczema, due to unspecified cause 07/02/2007 10/14/2012 Contact dermatitis and other eczema due to other specified agent 07/02/2007 10/14/2012 Seborrheic dermatitis, unspecified 07/02/2007 10/14/2012 XEROSIS///SEBACEOUS GLAND DIS NEC 07/02/2007 10/14/2012 Unspecified pruritic disorder 07/02/2007 10/14/2012 documented as of this encounter (statuses as of 01/31/2023) [facility] History of Past illness Narrative* Problem Noted Date Diagnosed Date Resolved Date Other chronic dermatitis due to solar radiation 08/09/2008 10/14/2012 Pyoderma, unspecified 08/09/20082012 Other acne 07/02/2007 10/14/2012 Contact dermatitis and other eczema, due to unspecified cause 07/02/2007 10/14/2012 Contact dermatitis and other eczema due to other specified agent 07/02/2007 10/14/2012 Seborrheic dermatitis, unspecified 07/02/2007 10/14/2012 XEROSIS///SEBACEOUS GLAND DIS NEC 07/02/2007 10/14/2012 Unspecified pruritic disorder 07/02/2007 10/14/2012 documented as of this encounter (statuses as of 02/01/2023) [facility] History of Past illness Narrative* Problem Noted Date Diagnosed Date Resolved Date Other chronic dermatitis due to solar radiation 08/09/2008 10/14/2012 Pyoderma, unspecified 08/09/20082012 Other acne 07/02/2007 10/14/2012 Contact dermatitis and other eczema, due to unspecified cause 07/02/2007 10/14/2012 Contact dermatitis and other eczema due to other specified agent 07/02/2007 10/14/2012 Seborrheic dermatitis, unspecified 07/02/2007 10/14/2012 XEROSIS///SEBACEOUS GLAND DIS NEC 07/02/2007 10/14/2012 Unspecified pruritic disorder 07/02/2007 10/14/2012 documented as of this encounter (statuses as of 02/22/2023) [facility] History of Past illness Narrative* Problem Noted Date Diagnosed Date Resolved Date Other chronic dermatitis due to solar radiation 08/09/2008 10/14/2012 Pyoderma, unspecified 08/09/20082012 Other acne 07/02/2007 10/14/2012 Contact dermatitis and other eczema, due to unspecified cause 07/02/2007 10/14/2012 Contact dermatitis and other eczema due to other specified agent 07/02/2007 10/14/2012 Seborrheic dermatitis, unspecified 07/02/2007 10/14/2012 XEROSIS///SEBACEOUS GLAND DIS NEC 07/02/2007 10/14/2012 Unspecified pruritic disorder 07/02/2007 10/14/2012 documented as of this encounter (statuses as of 02/22/2023) [facility] History of Past illness Narrative* Problem Noted Date Diagnosed Date Resolved Date Other chronic dermatitis due to solar radiation 08/09/2008 10/14/2012 Pyoderma, unspecified 08/09/20082012 Other acne 07/02/2007 10/14/2012 Contact dermatitis and other eczema, due to unspecified cause 07/02/2007 10/14/2012 Contact dermatitis and other eczema due to other specified agent 07/02/2007 10/14/2012 Seborrheic dermatitis, unspecified 07/02/2007 10/14/2012 XEROSIS///SEBACEOUS GLAND DIS NEC 07/02/2007 10/14/2012 Unspecified pruritic disorder 07/02/2007 10/14/2012 documented as of this encounter (statuses as of 02/22/2023) [facility] History of Past illness Narrative* Problem Noted Date Diagnosed Date Resolved Date Other chronic dermatitis due to solar radiation 08/09/2008 10/14/2012 Pyoderma, unspecified 08/09/20082012 Other acne 07/02/2007 10/14/2012 Contact dermatitis and other eczema, due to unspecified cause 07/02/2007 10/14/2012 Contact dermatitis and other eczema due to other specified agent 07/02/2007 10/14/2012 Seborrheic dermatitis, unspecified 07/02/2007 10/14/2012 XEROSIS///SEBACEOUS GLAND DIS NEC 07/02/2007 10/14/2012 Unspecified pruritic disorder 07/02/2007 10/14/2012 documented as of this encounter (statuses as of 02/23/2023) [facility] History of Past illness Narrative* Problem Noted Date Diagnosed Date Resolved Date Other chronic dermatitis due to solar radiation 08/09/2008 10/14/2012 Pyoderma, unspecified 08/09/20082012 Other acne 07/02/2007 10/14/2012 Contact dermatitis and other eczema, due to unspecified cause 07/02/2007 10/14/2012 Contact dermatitis and other eczema due to other specified agent 07/02/2007 10/14/2012 Seborrheic dermatitis, unspecified 07/02/2007 10/14/2012 XEROSIS///SEBACEOUS GLAND DIS NEC 07/02/2007 10/14/2012 Unspecified pruritic disorder 07/02/2007 10/14/2012 documented as of this encounter (statuses as of 02/26/2023) [facility] History of Past illness Narrative* Problem Noted Date Diagnosed Date Resolved Date Other chronic dermatitis due to solar radiation 08/09/2008 10/14/2012 Pyoderma, unspecified 08/09/20082012 Other acne 07/02/2007 10/14/2012 Contact dermatitis and other eczema, due to unspecified cause 07/02/2007 10/14/2012 Contact dermatitis and other eczema due to other specified agent 07/02/2007 10/14/2012 Seborrheic dermatitis, unspecified 07/02/2007 10/14/2012 XEROSIS///SEBACEOUS GLAND DIS NEC 07/02/2007 10/14/2012 Unspecified pruritic disorder 07/02/2007 10/14/2012 documented as of this encounter (statuses as of 02/28/2023) [facility] History of Past illness Narrative* Problem Noted Date Diagnosed Date Resolved Date Other chronic dermatitis due to solar radiation 08/09/2008 10/14/2012 Pyoderma, unspecified 08/09/20082012 Other acne 07/02/2007 10/14/2012 Contact dermatitis and other eczema, due to unspecified cause 07/02/2007 10/14/2012 Contact dermatitis and other eczema due to other specified agent 07/02/2007 10/14/2012 Seborrheic dermatitis, unspecified 07/02/2007 10/14/2012 XEROSIS///SEBACEOUS GLAND DIS NEC 07/02/2007 10/14/2012 Unspecified pruritic disorder 07/02/2007 10/14/2012 documented as of this encounter (statuses as of 03/20/2023) [facility] History of Past illness Narrative* Problem Noted Date Diagnosed Date Resolved Date Other chronic dermatitis due to solar radiation 08/09/2008 10/14/2012 Pyoderma, unspecified 08/09/20082012 Other acne 07/02/2007 10/14/2012 Contact dermatitis and other eczema, due to unspecified cause 07/02/2007 10/14/2012 Contact dermatitis and other eczema due to other specified agent 07/02/2007 10/14/2012 Seborrheic dermatitis, unspecified 07/02/2007 10/14/2012 XEROSIS///SEBACEOUS GLAND DIS NEC 07/02/2007 10/14/2012 Unspecified pruritic disorder 07/02/2007 10/14/2012 documented as of this encounter (statuses as of 03/25/2023) [facility] History of Past illness Narrative* Problem Noted Date Diagnosed Date Resolved Date Other chronic dermatitis due to solar radiation 08/09/2008 10/14/2012 Pyoderma, unspecified 08/09/20082012 Other acne 07/02/2007 10/14/2012 Contact dermatitis and other eczema, due to unspecified cause 07/02/2007 10/14/2012 Contact dermatitis and other eczema due to other specified agent 07/02/2007 10/14/2012 Seborrheic dermatitis, unspecified 07/02/2007 10/14/2012 XEROSIS///SEBACEOUS GLAND DIS NEC 07/02/2007 10/14/2012 Unspecified pruritic disorder 07/02/2007 10/14/2012 documented as of this encounter (statuses as of 03/27/2023) [facility] History of Past illness Narrative* Problem Noted Date Diagnosed Date Resolved Date Other chronic dermatitis due to solar radiation 08/09/2008 10/14/2012 Pyoderma, unspecified 08/09/20082012 Other acne 07/02/2007 10/14/2012 Contact dermatitis and other eczema, due to unspecified cause 07/02/2007 10/14/2012 Contact dermatitis and other eczema due to other specified agent 07/02/2007 10/14/2012 Seborrheic dermatitis, unspecified 07/02/2007 10/14/2012 XEROSIS///SEBACEOUS GLAND DIS NEC 07/02/2007 10/14/2012 Unspecified pruritic disorder 07/02/2007 10/14/2012 documented as of this encounter (statuses as of 04/23/2023) [facility] History of Past illness Narrative* Problem Noted Date Diagnosed Date Resolved Date Other chronic dermatitis due to solar radiation 08/09/2008 10/14/2012 Pyoderma, unspecified 08/09/20082012 Other acne 07/02/2007 10/14/2012 Contact dermatitis and other eczema, due to unspecified cause 07/02/2007 10/14/2012 Contact dermatitis and other eczema due to other specified agent 07/02/2007 10/14/2012 Seborrheic dermatitis, unspecified 07/02/2007 10/14/2012 XEROSIS///SEBACEOUS GLAND DIS NEC 07/02/2007 10/14/2012 Unspecified pruritic disorder 07/02/2007 10/14/2012 documented as of this encounter (statuses as of 05/06/2023) [facility] History of Past illness Narrative* Problem Noted Date Diagnosed Date Resolved Date Other chronic dermatitis due to solar radiation 08/09/2008 10/14/2012 Pyoderma, unspecified 08/09/20082012 Other acne 07/02/2007 10/14/2012 Contact dermatitis and other eczema, due to unspecified cause 07/02/2007 10/14/2012 Contact dermatitis and other eczema due to other specified agent 07/02/2007 10/14/2012 Seborrheic dermatitis, unspecified 07/02/2007 10/14/2012 XEROSIS///SEBACEOUS GLAND DIS NEC 07/02/2007 10/14/2012 Unspecified pruritic disorder 07/02/2007 10/14/2012 documented as of this encounter (statuses as of 07/25/2023) [facility] History of Past illness Narrative* Problem Noted Date Diagnosed Date Resolved Date Other chronic dermatitis due to solar radiation 08/09/2008 10/14/2012 Pyoderma, unspecified 08/09/20082012 Other acne 07/02/2007 10/14/2012 Contact dermatitis and other eczema, due to unspecified cause 07/02/2007 10/14/2012 Contact dermatitis and other eczema due to other specified agent 07/02/2007 10/14/2012 Seborrheic dermatitis, unspecified 07/02/2007 10/14/2012 XEROSIS///SEBACEOUS GLAND DIS NEC 07/02/2007 10/14/2012 Unspecified pruritic disorder 07/02/2007 10/14/2012 documented as of this encounter (statuses as of 08/07/2023) [facility] Diagnosis Chronic pain syndrome- Primary Myofascial pain syndrome Mylagia and myositis, unspecified Fibromyalgia Mylagia and myositis, unspecified 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 Chronic migraine without aura, with intractable migraine, so stated, with status migrainosus 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 Myofascial pain syndrome Mylagia and myositis, unspecified 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 Chronic migraine without aura, with intractable migraine, so stated, with status migrainosus Myofascial pain syndrome Mylagia and myositis, unspecified Intractable chronic migraine without aura and without status migrainosus Chronic migraine without aura, with intractable migraine, so stated, without mention of status migrainosus Myofascial pain syndrome Mylagia and myositis, unspecified [facility] Diagnosis Myofascial pain syndrome Mylagia and myositis, unspecified 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 Chronic migraine without aura, with intractable migraine, so stated, with status migrainosus Myofascial pain syndrome Mylagia and myositis, unspecified Intractable chronic migraine without aura and without status migrainosus Chronic migraine without aura, with intractable migraine, so stated, without mention of status migrainosus Myofascial pain syndrome Mylagia and myositis, unspecified [facility] encounter [facility]* Diagnosis Chronic pain syndrome- Primary Migraine variant Variants of migraine, not elsewhere classified, without mention of intractable migraine without mention of status migrainosus Fibromyalgia Mylagia and myositis, unspecified Myofascial pain syndrome Mylagia and myositis, unspecified 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 Chronic migraine without aura, with intractable migraine, so stated, with status migrainosus Myofascial pain syndrome Mylagia and myositis, unspecified Intractable chronic migraine without aura and without status migrainosus Chronic migraine without aura, with intractable migraine, so stated, without mention of status migrainosus Myofascial pain syndrome Mylagia and myositis, unspecified [facility]* 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 POTS (postural orthostatic tachycardia syndrome) Tachycardia, unspecified Myofascial pain syndrome Mylagia and myositis, unspecified Myofascial pain syndrome Mylagia and myositis, unspecified Intractable chronic migraine without aura and without status migrainosus Chronic migraine without aura, with intractable migraine, so stated, without mention of status migrainosus Myofascial pain syndrome Mylagia and myositis, unspecified [facility]* Diagnosis Fibromyalgia- Primary Mylagia and myositis, unspecified 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 Chronic pain syndrome 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 Chronic migraine without aura, with intractable migraine, so stated, with status migrainosus Intractable chronic migraine without aura and without status migrainosus Chronic migraine without aura, with intractable migraine, so stated, without mention of status migrainosus Myofascial pain syndrome Mylagia and myositis, unspecified [facility] this [facility]* Diagnosis Fibromyalgia- Primary Mylagia and myositis, unspecified 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 Chronic pain syndrome 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 Chronic migraine without aura, with intractable migraine, so stated, with status migrainosus Myofascial pain syndrome Mylagia and myositis, unspecified [facility]* Diagnosis Myofascial pain syndrome- Primary Mylagia and myositis, unspecified [facility] Migraine without aura and with status migrainosus, not intractable- Primary Migraine without aura, without mention of intractable migraine with status migrainosus Migraine without aura, intractable, without status migrainosus [facility] Diagnosis Other chronic pain- Primary 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 Fibromyalgia Mylagia and myositis, unspecified Migraine variant Variants of migraine, not elsewhere classified, without mention of intractable migraine without mention of status migrainosus Chronic pain syndrome Myofascial pain syndrome Mylagia and myositis, unspecified Migraine without aura and with status migrainosus, not intractable Migraine without aura, without mention of intractable migraine with status migrainosus Migraine without aura, intractable, without status migrainosus [facility] Diagnosis Chronic pain syndrome Myofascial pain syndrome Mylagia and myositis, unspecified Migraine without aura and with status migrainosus, not intractable Migraine without aura, without mention of intractable migraine with status migrainosus Migraine without aura, intractable, without status migrainosus [facility] Diagnosis Other chronic pain- Primary shelter (current) use of opiate analgesic Fibromyalgia Mylagia and myositis, unspecified Migraine variant Variants of migraine, not elsewhere classified, without mention of intractable migraine without mention of status migrainosus Chiquis-Danlos syndrome Chronic pain syndrome Migraine without aura and with status migrainosus, not intractable Migraine without aura, without mention of intractable migraine with status migrainosus Migraine without aura, intractable, without status migrainosus [facility] Diagnosis 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- Primary Chronic migraine without aura, with intractable migraine, so stated, with status migrainosus Migraine without aura and with status migrainosus, not intractable Migraine without aura, without mention of intractable migraine with status migrainosus Migraine without aura, intractable, without status migrainosus [facility]* Diagnosis Myofascial pain syndrome- Primary Mylagia and myositis, unspecified Myofascial pain syndrome Mylagia and myositis, unspecified Myofascial pain syndrome Mylagia and myositis, unspecified 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 Chronic migraine without aura, with intractable migraine, so stated, with status migrainosus [facility]* Diagnosis Other chronic pain- Primary shelter (current) use of opiate analgesic Fibromyalgia Mylagia and myositis, unspecified Migraine variant Variants of migraine, not elsewhere classified, without mention of intractable migraine without mention of status migrainosus Chiquis-Danlos syndrome Chronic pain syndrome Myofascial pain syndrome Mylagia and myositis, unspecified Myofascial pain syndrome Mylagia and myositis, unspecified 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 Chronic migraine without aura, with intractable migraine, so stated, with status migrainosus [facility]* Diagnosis Other chronic pain- Primary shelter (current) use of opiate analgesic Fibromyalgia Mylagia and myositis, unspecified Chiquis-Danlos syndrome Migraine variant Variants of migraine, not elsewhere classified, without mention of intractable migraine without mention of status migrainosus Myofascial pain syndrome Mylagia and myositis, unspecified Chronic pain syndrome Myofascial pain syndrome Mylagia and myositis, unspecified 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 Chronic migraine without aura, with intractable migraine, so stated, with status migrainosus [facility]* Diagnosis Other chronic pain- Primary shelter (current) use of opiate analgesic Fibromyalgia Mylagia and myositis, unspecified Migraine variant Variants of migraine, not elsewhere classified, without mention of intractable migraine without mention of status migrainosus Myofascial pain syndrome Mylagia and myositis, unspecified 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 Chronic migraine without aura, with intractable migraine, so stated, with status migrainosus [facility]* Diagnosis 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- Primary Chronic migraine without aura, with intractable migraine, so stated, with status migrainosus Migraine variant Variants of migraine, not elsewhere classified, without mention of intractable migraine without mention of status migrainosus Myofascial pain syndrome Mylagia and myositis, unspecified 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 Chronic migraine without aura, with intractable migraine, so stated, with status migrainosus [facility]* Diagnosis 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- Primary Chronic migraine without aura, with intractable migraine, so stated, with status migrainosus Migraine variant Variants of migraine, not elsewhere classified, without mention of intractable migraine without mention of status migrainosus Myofascial pain syndrome Mylagia and myositis, unspecified Migraine variant Variants of migraine, not elsewhere classified, without mention of intractable migraine without mention of status migrainosus 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 Chronic migraine without aura, with intractable migraine, so stated, with status migrainosus [facility] Diagnosis shelter (current) use of opiate analgesic- Primary Chronic migraine without aura, with intractable migraine, so stated, with status migrainosus Myofascial pain syndrome Mylagia and myositis, unspecified Migraine variant Variants of migraine, not elsewhere classified, without mention of intractable migraine without mention of status migrainosus 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 Chronic migraine without aura, with intractable migraine, so stated, with status migrainosus [facility]* Diagnosis Other chronic pain- Primary Fibromyalgia Mylagia and myositis, unspecified 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 Chronic migraine without aura, with intractable migraine, so stated, with status migrainosus Chiquis-Danlos syndrome Migraine variant Variants of migraine, not elsewhere classified, without mention of intractable migraine without mention of status migrainosus 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 Chronic pain syndrome Chronic migraine without aura, with intractable migraine, so stated, with status migrainosus Myofascial pain syndrome Mylagia and myositis, unspecified Migraine variant Variants of migraine, not elsewhere classified, without mention of intractable migraine without mention of status migrainosus 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 Chronic migraine without aura, with intractable migraine, so stated, with status migrainosus [facility] Diagnosis Other chronic pain- Primary Fibromyalgia Mylagia and myositis, unspecified 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 Chronic migraine without aura, with intractable migraine, so stated, with status migrainosus Chiquis-Danlos syndrome shelter (current) use of opiate analgesic Chronic pain syndrome Chronic migraine without aura, with intractable migraine, so stated, with status migrainosus Myofascial pain syndrome Mylagia and myositis, unspecified Migraine variant Variants of migraine, not elsewhere classified, without mention of intractable migraine without mention of status migrainosus 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 Chronic migraine without aura, with intractable migraine, so stated, with status migrainosus [facility] Other chronic pain- Primary Fibromyalgia Mylagia and myositis, unspecified 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 Chronic migraine without aura, with intractable migraine, so stated, with status migrainosus Chiquis-Danlos syndrome 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 Chronic pain syndrome Migraine variant Variants of migraine, not elsewhere classified, without mention of intractable migraine without mention of status migrainosus 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 Chronic migraine without aura, with intractable migraine, so stated, with status migrainosus [facility] Diagnosis Migraine without aura and with status migrainosus, not intractable- Primary Migraine without aura, without mention of intractable migraine with status migrainosus Migraine with aura, intractable, without status migrainosus Migraine without aura and with status migrainosus, not intractable Migraine without aura, without mention of intractable migraine with status migrainosus Migraine with aura, intractable, without status migrainosus [facility]* Diagnosis Myofascial pain syndrome- Primary Mylagia and myositis, unspecified [facility] Diagnosis Other chronic pain- Primary Fibromyalgia Mylagia and myositis, unspecified 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 Chronic migraine without aura, with intractable migraine, so stated, with status migrainosus Chiquis-Danlos syndrome Chronic pain syndrome [id number] syndrome Peroneal muscular atrophy 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 Migraine variant Variants of migraine, not elsewhere classified, without mention of intractable migraine without mention of status migrainosus Myofascial pain syndrome Mylagia and myositis, unspecified POTS (postural orthostatic tachycardia syndrome) Tachycardia, unspecified 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 Myofascial pain syndrome Mylagia and myositis, unspecified documented in this encounter [facility] note* Diagnosis Myofascial pain syndrome- Primary Mylagia and myositis, unspecified Myofascial pain syndrome Mylagia and myositis, unspecified documented in this encounter [facility] note* Diagnosis Migraine without aura and with status migrainosus, not intractable- Primary Migraine without aura, without mention of intractable migraine with status migrainosus Chronic migraine without aura, intractable, without status migrainosus Myofascial pain syndrome Mylagia and myositis, unspecified documented in this encounter [facility] note* Diagnosis Chronic pain syndrome- Primary 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 Chronic migraine without aura, with intractable migraine, so stated, with status migrainosus shelter (current) use of opiate analgesic Other chronic pain Chiquis-Danlos syndrome Marfan's syndrome POTS (postural orthostatic tachycardia syndrome) Tachycardia, unspecified Fibromyalgia Mylagia and myositis, unspecified Migraine variant Variants of migraine, not elsewhere classified, without mention of intractable migraine without mention of status migrainosus Myofascial pain syndrome Mylagia and myositis, unspecified Rugunqp-Lrvka-Yazbi disease Peroneal muscular atrophy Wtmkugi-Vwqbl-Iuunm syndrome Peroneal muscular atrophy Myofascial pain syndrome Mylagia and myositis, unspecified documented in this encounter [facility] note* Diagnosis Chronic pain syndrome documented in this encounter [facility] note* Diagnosis Chronic pain syndrome 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 Chronic migraine without aura, with intractable migraine, so stated, with status migrainosus Fibromyalgia Mylagia and myositis, unspecified Fibromyalgia Mylagia and myositis, unspecified documented [facility] this encounter [facility] Purpose Family History No Family History Records FoundNo Family History Records FoundNo Family History Records FoundNo Family History Records Found Advance Directives Documents on File Type Date 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 Advance Directive(s) 11/28/2021 2:32 PM Documents on File Type Date 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 Advance Directive(s) 12/25/2021 2:26 PM Advance Directive(s) 11/28/2021 2:32 PM Additional Source Comments INFORMATION SOURCE (unrecogn ized section and content) DATE CREATED AUTHOR AUTHOR'S ORGANIZ ATION 11/18/2022 [facility] DATE CREATED AUTHOR AUTHOR'S ORGANIZ ATION 07/05/2023 [facility] CREATED AUTHOR AUTHOR'S ORGANIZ ATION 07/20/2023 [facility] Source Comments (unrecognize d section and content) In the event this informatio n is protected by the Federal Confidentiality of Alcohol and Drug Abuse Patient Records regulations: The Federal rules restrict any use of the information to criminally investigate or prosecute any alcohol or drug abuse patient.[facility] the event this information is protected by the Federal Confidentiality of Alcohol and Drug Abuse Patient Records regulations: The Federal rules restrict any use of the information to criminally investigate or prosecute any alcohol or drug abuse patient.[facility] the event this information is protected by the Federal Confidentiality of Alcohol and Drug Abuse Patient Records regulations: The Federal rules restrict any use of the information to criminally investigate or prosecute any alcohol or drug abuse patient.[facility] the event this information is protected by the Federal Confidentiality of Alcohol and Drug Abuse Patient Records regulations: The Federal rules restrict any use of the information to criminally investigate or prosecute any alcohol or drug abuse patient.[facility] the event this information is protected by the Federal Confidentiality of Alcohol and Drug Abuse Patient Records regulations: The Federal rules restrict any use of the information to criminally investigate or prosecute any alcohol or drug abuse patient.[facility] the event this information is protected by the Federal Confidentiality of Alcohol and Drug Abuse Patient Records regulations: The Federal rules restrict any use of the information to criminally investigate or prosecute any alcohol or drug abuse patient.[facility] the event this information is protected by the Federal Confidentiality of Alcohol and Drug Abuse Patient Records regulations: The Federal rules restrict any use of the information to criminally investigate or prosecute any alcohol or drug abuse patient.[facility] the event this information is protected by the Federal Confidentiality of Alcohol and Drug Abuse Patient Records regulations: The Federal rules restrict any use of the information to criminally investigate or prosecute any alcohol or drug abuse patient.[facility] the event this information is protected by the Federal Confidentiality of Alcohol and Drug Abuse Patient Records regulations: The Federal rules restrict any use of the information to criminally investigate or prosecute any alcohol or drug abuse patient.[facility] the event this information is protected by the Federal Confidentiality of Alcohol and Drug Abuse Patient Records regulations: The Federal rules restrict any use of the information to criminally investigate or prosecute any alcohol or drug abuse patient.[facility] the event this information is protected by the Federal Confidentiality of Alcohol and Drug Abuse Patient Records regulations: The Federal rules restrict any use of the information to criminally investigate or prosecute any alcohol or drug abuse patient.[facility] the event this information is protected by the Federal Confidentiality of Alcohol and Drug Abuse Patient Records regulations: The Federal rules restrict any use of the information to criminally investigate or prosecute any alcohol or drug abuse patient.[facility] the event this information is protected by the Federal Confidentiality of Alcohol and Drug Abuse Patient Records regulations: The Federal rules restrict any use of the information to criminally investigate or prosecute any alcohol or drug abuse patient.[facility] the event this information is protected by the Federal Confidentiality of Alcohol and Drug Abuse Patient Records regulations: The Federal rules restrict any use of the information to criminally investigate or prosecute any alcohol or drug abuse patient.[facility] the event this information is protected by the Federal Confidentiality of Alcohol and Drug Abuse Patient Records regulations: The Federal rules restrict any use of the information to criminally investigate or prosecute any alcohol or drug abuse patient.[facility] the event this information is protected by the Federal Confidentiality of Alcohol and Drug Abuse Patient Records regulations: The Federal rules restrict any use of the information to criminally investigate or prosecute any alcohol or drug abuse patient.[facility] the event this information is protected by the Federal Confidentiality of Alcohol and Drug Abuse Patient Records regulations: The Federal rules restrict any use of the information to criminally investigate or prosecute any alcohol or drug abuse patient.[facility] the event this information is protected by the Federal Confidentiality of Alcohol and Drug Abuse Patient Records regulations: The Federal rules restrict any use of the information to criminally investigate or prosecute any alcohol or drug abuse patient.[facility] the event this information is protected by the Federal Confidentiality of Alcohol and Drug Abuse Patient Records regulations: The Federal rules restrict any use of the information to criminally investigate or prosecute any alcohol or drug abuse patient.[facility] the event this information is protected by the Federal Confidentiality of Alcohol and Drug Abuse Patient Records regulations: The Federal rules restrict any use of the information to criminally investigate or prosecute any alcohol or drug abuse patient.[facility] the event this information is protected by the Federal Confidentiality of Alcohol and Drug Abuse Patient Records regulations: The Federal rules restrict any use of the information to criminally investigate or prosecute any alcohol or drug abuse patient.[facility] the event this information is protected by the Federal Confidentiality of Alcohol and Drug Abuse Patient Records regulations: The Federal rules restrict any use of the information to criminally investigate or prosecute any alcohol or drug abuse patient.[facility] the event this information is protected by the Federal Confidentiality of Alcohol and Drug Abuse Patient Records regulations: The Federal rules restrict any use of the information to criminally investigate or prosecute any alcohol or drug abuse patient.[facility] HealthIn the event this information is protected by the Federal Confidentiality of Alcohol and Drug Abuse Patient Records regulations: The Federal rules restrict any use of the information to criminally investigate or prosecute any alcohol or drug abuse patient.[facility] HealthIn the event this information is protected by the Federal Confidentiality of Alcohol and Drug Abuse Patient Records regulations: The Federal rules restrict any use of the information to criminally investigate or prosecute any alcohol or drug abuse patient.[facility] HealthIn the event this information is protected by the Federal Confidentiality of Alcohol and Drug Abuse Patient Records regulations: The Federal rules restrict any use of the information to criminally investigate or prosecute any alcohol or drug abuse patient.[facility] HealthIn the event this information is protected by the Federal Confidentiality of Alcohol and Drug Abuse Patient Records regulations: The Federal rules restrict any use of the information to criminally investigate or prosecute any alcohol or drug abuse patient.[facility] HealthIn the event this information is protected by the Federal Confidentiality of Alcohol and Drug Abuse Patient Records regulations: The Federal rules restrict any use of the information to criminally investigate or prosecute any alcohol or drug abuse patient.[facility] HealthIn the event this information is protected by the Federal Confidentiality of Alcohol and Drug Abuse Patient Records regulations: The Federal rules restrict any use of the information to criminally investigate or prosecute any alcohol or drug abuse patient.[facility] HealthIn the event this information is protected by the Federal Confidentiality of Alcohol and Drug Abuse Patient Records regulations: The Federal rules restrict any use of the information to criminally investigate or prosecute any alcohol or drug abuse patient.[facility] HealthIn the event this information is protected by the Federal Confidentiality of Alcohol and Drug Abuse Patient Records regulations: The Federal rules restrict any use of the information to criminally investigate or prosecute any alcohol or drug abuse patient.[facility] HealthIn the event this information is protected by the Federal Confidentiality of Alcohol and Drug Abuse Patient Records regulations: The Federal rules restrict any use of the information to criminally investigate or prosecute any alcohol or drug abuse patient.[facility] HealthIn the event this information is protected by the Federal Confidentiality of Alcohol and Drug Abuse Patient Records regulations: The Federal rules restrict any use of the information to criminally investigate or prosecute any alcohol or drug abuse patient.[facility] HealthIn the event this information is protected by the Federal Confidentiality of Alcohol and Drug Abuse Patient Records regulations: The Federal rules restrict any use of the information to criminally investigate or prosecute any alcohol or drug abuse patient.[facility] HealthIn the event this information is protected by the Federal Confidentiality of Alcohol and Drug Abuse Patient Records regulations: The Federal rules restrict any use of the information to criminally investigate or prosecute any alcohol or drug abuse patient.[facility] HealthIn the event this information is protected by the Federal Confidentiality of Alcohol and Drug Abuse Patient Records regulations: The Federal rules restrict any use of the information to criminally investigate or prosecute any alcohol or drug abuse patient.[facility] HealthIn the event this information is protected by the Federal Confidentiality of Alcohol and Drug Abuse Patient Records regulations: The Federal rules restrict any use of the information to criminally investigate or prosecute any alcohol or drug abuse patient.[facility] HealthIn the event this information is protected by the Federal Confidentiality of Alcohol and Drug Abuse Patient Records regulations: The Federal rules restrict any use of the information to criminally investigate or prosecute any alcohol or drug abuse patient.[facility] HealthIn the event this information is protected by the Federal Confidentiality of Alcohol and Drug Abuse Patient Records regulations: The Federal rules restrict any use of the information to criminally investigate or prosecute any alcohol or drug abuse patient.[facility] HealthIn the event this information is protected by the Federal Confidentiality of Alcohol and Drug Abuse Patient Records regulations: The Federal rules restrict any use of the information to criminally investigate or prosecute any alcohol or drug abuse patient.[facility] HealthIn the event this information is protected by the Federal Confidentiality of Alcohol and Drug Abuse Patient Records regulations: The Federal rules restrict any use of the information to criminally investigate or prosecute any alcohol or drug abuse patient.[facility] HealthIn the event this information is protected by the Federal Confidentiality of Alcohol and Drug Abuse Patient Records regulations: The Federal rules restrict any use of the information to criminally investigate or prosecute any alcohol or drug abuse patient.[facility] HealthIn the event this information is protected by the Federal Confidentiality of Alcohol and Drug Abuse Patient Records regulations: The Federal rules restrict any use of the information to criminally investigate or prosecute any alcohol or drug abuse patient.[facility] HealthIn the event this information is protected by the Federal Confidentiality of Alcohol and Drug Abuse Patient Records regulations: The Federal rules restrict any use of the information to criminally investigate or prosecute any alcohol or drug abuse patient.[facility] HealthIn the event this information is protected by the Federal Confidentiality of Alcohol and Drug Abuse Patient Records regulations: The Federal rules restrict any use of the information to criminally investigate or prosecute any alcohol or drug abuse patient.[facility] Care Teams (unrecognized sec tion and content) Reheat Furnace Operator Relationship Specialty Start Date End Date Luisa Pemberton [address] [place] [address] PCP - General 06/29/02 Reheat Furnace Operator Relationship Specialty Start Date End Date Luisa Pemberton [address] [place] [address] PCP - General 06/29/02 Reheat Furnace Operator Relationship Specialty Start Date End Date Luisa Pemberton [address] [facility] [address] [place] [address] PCP - General 06/29/02 Reheat Furnace Operator Relationship Specialty Start Date End Date Luisa Pemberton [address] [facility] [address] [place] [address] PCP - General 06/29/02 Reheat Furnace Operator Relationship Specialty Start Date End Date Luisa Pemberton [address] [facility] [address] [place] [address] PCP - General 06/29/02 Reheat Furnace Operator Relationship Specialty Start Date End Date Luisa Pemberton [address] [facility] [address] [place] [address] PCP - General 06/29/02 Reheat Furnace Operator Relationship Specialty Start Date End Date Luisa Pemberton [address] [facility] [address] [place] [address] PCP - General 06/29/02 Reheat Furnace Operator Relationship Specialty Start Date End Date Luisa Pembertoner [address] [facility] [address] [place] [address] PCP - General 06/29/02 Reheat Furnace Operator Relationship Specialty Start Date End Date Luisa Pembertoner [address] [facility] [address] [place] [address] PCP - General 06/29/02 Reheat Furnace Operator Relationship Specialty Start Date End Date Luisa Pembertoner [address] [place] [address] PCP - General 06/29/02 Reheat Furnace Operator Relationship Specialty Start Date End Date Luisa Pembertoner [address] [place] [address] PCP - General 06/29/02 Reheat Furnace Operator Relationship Specialty Start Date End Date Luisa Pembertoner [address] [place] [address] PCP - General 06/29/02 Reheat Furnace Operator Relationship Specialty Start Date End Date Luisa Pembertnoer [address] [place] [address] PCP - General 06/29/02 Reheat Furnace Operator Relationship Specialty Start Date End Date Luisa Pembertoner [address] [place] [address] PCP - General 06/29/02 Reheat Furnace Operator Relationship Specialty Start Date End Date Luisa Pembertoner [address] [place] [address] PCP - General 06/29/02 Reheat Furnace Operator Relationship Specialty Start Date End Date Luisa Pembertoner [address] [place] [address] PCP - General 06/29/02 Reheat Furnace Operator Relationship Specialty Start Date End Date Luisa Pembertoner [address] [place] [address] PCP - General 06/29/02 Reheat Furnace Operator Relationship Specialty Start Date End Date Luisa Pemberton Hardeep [address] [place] [address] PCP - General 06/29/02 Reheat Furnace Operator Relationship Specialty Start Date End Date Luisa Pemberton [address] [place] [address] PCP - General 06/29/02 Reheat Furnace Operator Relationship Specialty Start Date End Date Luisa Pemberton [address] [place] [address] PCP - General 06/29/02 Reheat Furnace Operator Relationship Specialty Start Date End Date Luisa Pemberton [address] [place] [address] PCP - General 06/29/02 Reheat Furnace Operator Relationship Specialty Start Date End Date Luisa Pemberton [address] [place] [address] PCP - General 06/29/02 Reheat Furnace Operator Relationship Specialty Start Date End Date Luisa Pemberton [address] [place] [address] PCP - General 06/29/02 Reheat Furnace Operator Relationship Specialty Start Date End Date Luisa Pemberton [address] [place] [address] PCP - General 06/29/02 Reheat Furnace Operator Relationship Specialty Start Date End Date Luisa Pemberton [address] [place] [address] PCP - General 06/29/02 Reheat Furnace Operator Relationship Specialty Start Date End Date Luisa Pemberton [address] [place] [address] PCP - General 06/29/02 Reheat Furnace Operator Relationship Specialty Start Date End Date Luisa Pemberton [address] [place] [address] PCP - General 06/29/02 Reheat Furnace Operator Relationship Specialty Start Date End Date Luisa Pemberton [address] [place] [address] PCP - General 06/29/02 Reheat Furnace Operator Relationship Specialty Start Date End Date Luisa Pemberton [address] [place] [address] PCP - General 06/29/02 Reheat Furnace Operator Relationship Specialty Start Date End Date Luisa Pemberton [address] [place] [address] PCP - General 06/29/02 Reheat Furnace Operator Relationship Specialty Start Date End Date Luisa Pemberton [address] [place] [address] PCP - General 06/29/02 Reheat Furnace Operator Relationship Specialty Start Date End Date Luisa Pemberton [address] [place] [address] PCP - General 06/29/02 Reheat Furnace Operator Relationship Specialty Start Date End Date Luisa Pemberton [address] [place] [address] PCP - General 06/29/02 Reheat Furnace Operator Relationship Specialty Start Date End Date Luisa Pemberton [address] [facility] [address] [place] [address] PCP - General 06/29/02 Reheat Furnace Operator Relationship Specialty Start Date End Date Luisa Pemberton [address] [facility] [address] [place] [address] PCP - General 06/29/02 Reason for Visit (unrecogniz ed section and content) Reason Comments UTI Reason Comments Pain Reason Comments Orders Reason Comments Scheduling Procedure Reason Comments Recreation Therapist - Other Specialty Diagnoses / Procedures [facility] To Contact Diagnoses Migraine variant 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 Migraine variant [G43.809] 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 [G43.711] Procedures CHEMODERVATE FACIAL/TRIGEM/CERV MUSC MIGRAINE CHEMODENERVATION OF MUSCLE(S) INNERVATED BY FACIAL, TRIGEMINAL, CERVICAL SPINAL AND ACCESSORY NERVES, BILATERAL [facility] [address] [place] [address] Referral ID Status Reason Start Date Expiration Date Visits Re quested Visits Authorized [id number] 1 Reason Comments Case Needed Orders Reason Comments Verified procedure on Feb 27 Reason Comments Botox Injection Reason Comments Other Virtual Visit Pre Ch hailey In Reason Comments Other Scheduled with Dr Matthew luevano Reason Onset Date Comments Refill Request 05/05/2023 Reason Onset Date Comments Refill Request 07/25/2023 Specialty Diagnoses / Procedures Referred By Contac t Referred To Contact Diagnoses 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 Procedures CHEMODERVATE FACIAL/TRIGEM/CERV MUSC MIGRAINE CHEMODENERVATION OF MUSCLE(S) INNERVATED BY FACIAL, TRIGEMINAL, CERVICAL SPINAL AND ACCESSORY NERVES, BILATERAL Pain [facility] [address] [facility] [place] [address] Referral ID Status Reason Start Date Expiration Date Visits Re quested Visits Authorized [id number] 1 PRN Active and Recently Administ ered Medications (unrecognized section and content) PRN Medication Order 01/29/2023 01/30/2023 01/31/2023 NaCl (PF) 0.9% injection (CANCELED) X (OR/PROCEDURE) PRN, Starting on May 01/31/23 at 1346, Until May 01/31/23 at 1352, Intraprocedure 1346 (Given - Provid er: Morteza Meza DO) onabotulinum toxin type A injection (BOTOX) (CANCELED) X (OR/PROCEDURE) PRN, Starting on May 01/31/23 at 1353, Until May 01/31/23 at 1353, Intraprocedure 1353 (Given - Provid er: Morteza Meza DO) PRN Medication Order 08/04/2023 08/05/2023 08/06/2023 NaCl (PF) 0.9% injection (CANCELED) X (OR/PROCEDURE) PRN, Starting on 08/06/23 at 1504, Until 08/06/23 at 1513, Intraprocedure 1504 (Given - Provid er: Dejon Andres MD) onabotulinum toxin type A injection (BOTOX) (CANCELED) X (OR/PROCEDURE) PRN, Starting on 08/06/23 at 1505, Until 08/06/23 at 1513, Intraprocedure 1505 (Given - Provid er: Dejon Andres MD) FOR RECORDS PERTAINING TO PATIENTS WHO ARE OR HAVE BEEN ENROLLED IN A CHEMICAL DEPENDENCY/SUBSTANCEABUSE PROGRAM, SOME INFORMATION MAY BE OMITTED. This clinical summary was aggregated from multiple sources. Caution should be exercised in using it in the provision of clinical care. This summary normalizes information from multiple sources, and as a consequence, information in this document may materially change the coding, format and clinical context of patient data. In addition, data may be omitted in some cases. CLINICAL DECISIONS SHOULD BE BASED ON THE PRIMARY CLINICAL RECORDS. [employer] [facility]. provides no warranty or guarantee of the accuracy or completeness of information in this document.
--- NOTE | 2023-08-12 09:48 | PCM.DC.SUM ---
Providers Primary Care Physician: Dr. Luisa Pemberton MD Reason For Visit: Myringotomy,Tubes/ T- TUBES Medications at Discharge Home Medications ipratropium bromide 42 mcg (0.06 %) nasal spray 2 spray intranasal PRN PRN allergy symptoms 07/31/23 megestrol 400 mg/10 mL (40 mg/mL) oral suspension 80 mg PO DAILY 07/31/23 montelukast 10 mg tablet (Singulair) 10 mg PO QHS 07/31/23 multivitamin (Daily Multi-Vitamin tablet) 1 tab PO DAILY 07/31/23 ondansetron 8 mg disintegrating tablet 8 mg PO BID 07/31/23 oxycodone 20 mg/mL oral concentrate 20 mg PO Q4H 07/31/23 Weight / BMI Weight Weight: 49.1 kg Body Mass Index (BMI) 16.9 ABG / Lab / Microbiology Data 08/08/23 13:36 08/08/23 13:36 D/C Instructions Discharge Diet: No restrictions Discharge Activity: Return to Normal Activity Additional Instructions: Ear drops....5 drops each ear twice a day for 2 days (3 doses) Please Follow Up With: Mohit Henley MD When: 2-3 weeks Meaningful Use Info Meaningful Use Diagnoses (Choose all that apply): None applicable Discharge Plan Admission Attending Provider: Mohit Henley Primary Care Provider: Luisa Pemberton Discharge Orders/Prescriptions Prescriptions: No Action oxycodone 20 mg/mL concentrate 20 mg PO Q4H Patient Comments: TAKE 0.5-1 ML BY MOUTH EVERY 4 HOURS ondansetron 8 mg tablet,disintegrating 8 mg PO BID megestrol 400 mg/10 mL (40 mg/mL) suspension 80 mg PO DAILY Patient Comments: TAKE 2 MILLILITERS BY MOUTH TWICE A DAY montelukast [Singulair] 10 mg tablet 10 mg PO QHS Patient Comments: Take 1 tablet oral once a day multivitamin [Daily Multi-Vitamin] Tablet 1 tab PO DAILY ipratropium bromide 42 mcg (0.06 %) spray,non-aerosol 2 spray INTRANASAL PRN PRN (Reason: allergy symptoms) Patient Comments: SPRAY 2 SPRAYS INTO EACH NOSTRIL TWICE A DAY Referrals / Follow Up: Luisa Pemberton MD [Primary Care Provider] - Disposition Disposition (needs filled in before D/C Order can be placed): Home, Self Care
[2023-08-12] MEDS: Ciprofloxacin 0.3% 2.5ml Bottle 1 DRP (10:05)
--- NOTE | 2023-08-12 10:05 | PCM.OPRPT ---
Report of Operation Date of Procedure: 08/12/23 Pre-Operative Diagnosis: bilateral eustachian tube dysfunction Post-Operative Diagnosis: same Surgery/Procedure Performed:: Bilateral myringotomy with T tubes Surgeon: Mohit Henley Type of Anesthesia: Local MAC Anesthesiologist: Abdullahi Leija Estimated Blood Loss (mL): none Description of Procedure: The patient was taken to the operating room on 08/12/2023. The patient was placed in the supine position on the operating room table. The patient was given Local/mac anesthesia. The operating microscope was used throughout the entire case. A speculum was inserted into the patient's left ear. Cerumen was removed using a curette. The eardrum was then treated with topical phenol. An incision was placed in the anterior inferior quadrant of the tympanic membrane. The old T-tube was removed from the middle ear with alligator forceps. A T tube was placed without difficulty. Antibiotic drops were instilled into the patient's ear. Next, a speculum was inserted into the patient's right ear. Cerumen was removed using a curette. The old tube was removed from the tympanic membrane. A new T-tube was placed without difficulty. Antibiotic drops were instilled into the patient's ear. The patient was then awoken and brought to the recovery room in stable condition. Blood loss minimal, replacement none. sponge, needle and instrument counts correct at the end of the procedure.
[2023-08-12 10:10] VITALS: BP 131/73; BP 74/64; PULSE 75; RESP 16; TEMP 36.6; O2SAT 99
[2023-08-12 10:15] VITALS: BP 109/66; BP 131/73; PULSE 83; RESP 16; O2SAT 98
[2023-08-12 10:20] VITALS: BP 106/59; BP 131/73; PULSE 76; RESP 16; O2SAT 98
[2023-08-12 10:25] VITALS: BP 114/74; BP 131/73; PULSE 79; RESP 16; TEMP 36.3; O2SAT 99
[2023-08-12 10:47] VITALS: BP 131/73
== END 2023-08-12 10:59 | disposition home or self-care (01) ==
LOC: SDC 09:09 → AC 09:17
PROVIDERS: PCP Family Medicine; Referring Provider Otolaryngology; Visit Provider Otolaryngology
PROC: (CPT 69433; principal; 2023-08-12 14:35)
DX: H69.83 Other specified disorders of Eustachian tube, bilateral (principal); G71.00 Muscular dystrophy, unspecified; X58.XXXA Exposure to other specified factors, initial encounter; Q79.60 Ehlers-Danlos syndrome, unspecified; G90.A Postural orthostatic tachycardia syndrome [POTS]; G71.3 Mitochondrial myopathy, not elsewhere classified; Z79.899 Other long term (current) drug therapy
CPT/HCPCS: 69433; 00126; 36415; 80053; 85027; 93005; J7030; J2405

== ENCOUNTER 2023-12-23 06:57 | Emergency (ER) | payer MEDICARE, MEDICAID, SELFPAY ==
[2023-12-23 06:57] VITALS: BP 130/66; PULSE 122; RESP 16; TEMP 37.9; O2SAT 100; BMI 16.7
--- NOTE | 2023-12-23 07:12 | EX.ED.DYSGE1 ---
HPI History of Present Illness Chief Complaint: General Illness Informant: patient Onset/Context/Timing Onset: Yesterday Context: Gradual Onset Timing: Continuous Quality: Aching Location: Generalized Worsened by: Nothing Relieved by: Nothing Narrative Narrative: Patient presents with positive COVID test. Patient states that yesterday she started having symptoms of fevers, myalgias, and sore throat. Patient states he was getting progressively worse. Patient states nothing makes it better nothing makes it worse. Patient states her fever was up to 101.6 at home. Patient admits to some pain in her left trapezius area. Patient also admits to headache. Patient admits to some nausea but denies any vomiting. Patient states she has multiple medical problems which makes her symptoms worse. [facility] Medical History Loss of hearing Uses wheelchair Arthritis Easy bruising Cyclic vomiting syndrome Marfan syndrome Mitochondrial myopathies Chiquis-Danlos syndrome Injury of back Migraine headache Loss of consciousness Difficulty swallowing Gastric reflux Non-smoker Shortness of breath on exertion Leg cramps History of pain when walking History of edema History of echocardiogram History of stress test Cardiology follow-up encounter POTS (postural orthostatic tachycardia syndrome) Chest pain Hx of muscular dystrophy Home Medications ?Medication ?Instructions ?Recorded ?Last Taken ?Type ipratropium bromide 42 mcg (0.06 2 spray intranasal PRN PRN allergy 07/31/23 Unknown History %) nasal spray symptoms megestrol 400 mg/10 mL (40 mg/mL) 80 mg PO DAILY 07/31/23 08/11/23 History oral suspension montelukast 10 mg tablet 10 mg PO QHS 07/31/23 08/11/23 History (Singulair) multivitamin (Daily Multi-Vitamin 1 tab PO DAILY 07/31/23 08/11/23 History tablet) ondansetron 8 mg disintegrating 8 mg PO BID 07/31/23 08/12/23 History tablet oxycodone 20 mg/mL oral concentrate 20 mg PO Q4H 07/31/23 08/12/23 History benzocaine 15 mg-menthol 2.6 mg 1 jared mucous membrane Q2H PRN sore 12/23/23 Unknown Rx lozenges (Cepacol Sore Throat throat #16 ea (benzocaine-menthol)) Allergy/AdvReac Type Severity Reaction Status Date / Time adhesive tape Allergy Intermediate Hives Verified 12/23/23 06:58 morphine Allergy Intermediate Hives Verified 12/23/23 06:58 perfume Allergy Intermediate Hives Verified 12/23/23 06:58 cephalexin AdvReac Intermediate Other Verified 12/23/23 06:58 Surgical History History of cardiac catheterization History of myringotomy History of removal of retained hardware Hx of biopsy History of ankle surgery Hx of wisdom tooth extraction Hx of prior ablation treatment History of ankle surgery History of ankle surgery Hx of left knee surgery Hx of right knee surgery Hx of hammer toe correction Hx of hammer toe correction History of tonsillectomy and adenoidectomy Social History Smoking Status: Never smoker ROS ROS ED Constitutional Constitutional ED: Reports chills and fever(s) Eyes Eyes: Denies blurry vision or change in vision ENT ENT ED: Reports sore throat; Denies rhinorrhea Cardiovascular Cardiovascular: Denies chest pain or palpitations Respiratory/Chest Respiratory/Chest: Reports dyspnea; Denies cough Gastrointestinal Gastrointestinal: Reports nausea; Denies vomiting Genitourinary Genitourinary ED: Denies dysuria or hematuria Musculoskeletal Musculoskeletal: Reports neck pain; Denies back pain Integumentary Denies abscess or rash Neurologic Neurologic: Reports headache(s); Denies weakness Allergic/Immunologic Allergic/Immunologic ED: Denies mouth swelling or urticaria EXAM Physical Exam Const Vital Signs: 12/23/23 06:57 12/23/23 06:57 12/23/23 09:00 Temperature 100.3 F H Temperature Source Oral Pulse Rate 122 H 90 Respiratory Rate 16 16 Respiratory Effort Normal Non-Labored Respiratory Pattern Normal Blood Pressure 130/66 H 127/72 H Blood Pressure Mean 87 90 Pulse Ox 100 99 Oxygen Delivery Method Room Air Room Air Positive well nourished and well developed General Appearance ED: well developed and NAD HEENT Reports moist mucous membranes Neck supple and no JVD Resp normal respiratory effort and clear to auscultation bilaterally Cardio regular rhythm Rate: tachycardic GI non-tender and non-distended Palpation: soft Extremity General Extremety ED: Negative for edema General Extremity: Negative for edema Neuro oriented x3, CN's II-XII intact bilaterally and no sensory deficits noted Sensorium / Orientation: alert Motor Exam: strength 5/5 throughout Psych mental status grossly normal MDM MDM MDM Narrative Medical decision making narrative: Differential diagnosis includes COVID-19, viral illness, pneumonia, dehydration, electrolyte abnormality, and urinary tract infection. CBC will be obtained to assess for leukocytosis and anemia. Basic metabolic profile will be obtained to assess for electrolyte abnormality and dehydration. Urinalysis will be obtained to assess for urinary tract infection and hematuria. Serum hCG will be obtained to assess for . Lab Data Attestation: I reviewed the patient's lab results. Lab results narrative: CBC was reviewed and was within normal limits. Basic metabolic profile was reviewed and was within normal limits. Serum hCG was reviewed and was negative. Urinalysis was reviewed. There is no evidence of urinary tract infection or hematuria. Labs: Laboratory Results - last 24 hr 12/23/23 12/23/23 08:00 09:05 WBC 5.7 RBC 4.41 Hgb 12.9 Hct 40.9 MCV 92.7 MCH 29.3 MCHC 31.5 L RDW Std Deviation 43.2 RDW Coeff of Myra 12.7 Plt Count 227 MPV 9.8 Immature Gran % (Auto) 0.200 Neut % (Auto) 61.8 Lymph % (Auto) 26.2 [place] % (Auto) 10.9 H Eos % (Auto) 0.7 Baso % (Auto) 0.2 Absolute Neuts (auto) 3.5 Absolute Lymphs (auto) 1.49 Nucleated RBC % 0 Sodium 137 Potassium 3.5 Chloride 105 Carbon Dioxide 25.0 Anion Gap 7 BUN 8 Creatinine 0.83 Estim Creat Clear Calc 64.98 Est GFR (MDRD) Af Amer 95 Est GFR (MDRD) Non-Af 78 BUN/Creatinine Ratio 9.6 L Glucose 89 Calcium 8.9 Serum , Qual NEGATIVE Urine Color Yellow Urine Clarity Clear Urine pH 7.0 Ur Specific [place] 1.010 Urine Protein 15 H Urine Glucose (UA) Normal Urine Ketones 50 H Urine Occult Blood 50 H Urine Nitrite Negative Urine Bilirubin Negative Urine Urobilinogen Normal Ur Leukocyte Esterase Negative Urine RBC 0-5 SEEN Urine WBC 0 SEEN Ur Squamous Epith Cells 0 SEEN Urine Bacteria 0 SEEN Urine Mucus 0 SEEN Radiography Chest X-Ray - ED: 2 View, Read by ED Physician, Read by Radiologist and No Acute Disease Diagnostic Testing: Clinical Impression(s) from Imaging Studies Chest X-Ray 12/23/23 08:20 IMPRESSION: No active disease. Electronically Signed: Jethro Kim MD at 8:31 EDT , PA and lateral chest x-ray was obtained. There are 2 views. On my independent interpretation, lung mercer are clear. There is normal cardiac silhouette. Bony thorax is normal. There is no acute process noted. Radiologist also interpreted the x-ray and agrees. Treatment and Re-Evaluation :: Patient was given IV fluids and Tylenol. Patient was feeling better on reevaluation. Patient was advised of her findings. Patient was given a Cepacol lozenge for her throat pain. Patient was instructed to drink plenty of fluids. Patient was instructed to continue Tylenol and ibuprofen as needed for pain and fevers. Patient was instructed to follow-up with her primary care physician in 5 to 7 days. Patient understood and was agreeable with the plan. All questions were answered. Discharge Plan Triage Chief Complaint: General Illness ED Provider: Damien De La Cruz Dx/Rx/DC Orders Clinical Impression: COVID-19, Postural orthostatic tachycardia syndrome [POTS] Instructions: Coronavirus Disease 2019 (COVID-19): Overview, Coronavirus Disease 2019 (COVID-19): Caring for Yourself or Others Prescriptions: New Cepacol Sore Throat (warren-men) 15-2.6 mg lozenge 1 jared mucous membrane Q2H PRN (Reason: sore throat) Qty: 16 0RF No Action oxycodone 20 mg/mL concentrate 20 mg PO Q4H Patient Comments: TAKE 0.5-1 ML BY MOUTH EVERY 4 HOURS ondansetron 8 mg tablet,disintegrating 8 mg PO BID megestrol 400 mg/10 mL (40 mg/mL) suspension 80 mg PO DAILY Patient Comments: TAKE 2 MILLILITERS BY MOUTH TWICE A DAY montelukast [Singulair] 10 mg tablet 10 mg PO QHS Patient Comments: Take 1 tablet oral once a day multivitamin [Daily Multi-Vitamin] Tablet 1 tab PO DAILY ipratropium bromide 42 mcg (0.06 %) spray,non-aerosol 2 spray INTRANASAL PRN PRN (Reason: allergy symptoms) Patient Comments: SPRAY 2 SPRAYS INTO EACH NOSTRIL TWICE A DAY Primary Care Provider: Luisa Pemberton Referrals: Luisa Pemberton MD [Primary Care Provider] - 5-7 Days Print Language: Luxembourgish Disposition Disposition: Home, Self Care
[2023-12-23] MEDS: Acetaminophen 500 MG Tablet 1000 MG PO (07:58)
[2023-12-23] MEDS: 0.9% Normal Saline (1000mL) 1,000 ML 1000 ML IV (07:59)
[2023-12-23] MEDS: Ondansetron 4 MG/2 ML Vial IV (07:59)
[2023-12-23 08:17] LABS: Absolute Lymphocyte Count 1.49 X10^3/uL (0.83-4.51); Absolute Neutrophil Count 3.5 X10^3/uL (2.0-7.7); Basophil# 0.01 X10^3/uL; Basophil% 0.2 % (0-1); Eosinophil# 0.04 X10^3/uL; Eosinophils% 0.7 % (0-5); Hematocrit 40.9 % (37-47); Hemoglobin 12.9 g/dL (12.0-15.0); Lymphocyte # 1.49 X10^3/ul (0.83-4.51); Lymphocyte % 26.2 % (19-41); Mean Corp Hgb Conc 31.5 g/dL (32-36); Mean Corpuscular Hgb 29.3 pg (27.0-32.0); Mean Corpuscular Volume 92.7 fL (81-99); Mean Platelet Vol. 9.8 fl (6.2-12.0); Monocyte# 0.62 X10^3/uL; Monocyte% 10.9 % (0-10); NRBC Flagged by Analyzer 0 % (0-5); Neutrophil # 3.51 X10^3/uL (2.7-7.7); Neutrophil % 61.8 % (47-70); Platelet Count 227 K/mm3 (150-450); RBC Distribution Width CV 12.7 % (11.6-14.6); RBC Distribution Width SD 43.2 fl (35.1-43.9); Red Blood Count 4.41 M/mm3 (4.2-5.4); White Blood Count 5.7 K/mm3 (4.4-11.0)
--- NOTE | 2023-12-23 08:20 | RAD_ITS ---
STUDY: X-RAY CHEST REASON FOR EXAM: Female, 48 years old. Shortness of breath TECHNIQUE: PA and lateral views of the chest. COMPARISON: 03/20/2005 FINDINGS: Pectus excavatum deformity of the chest wall. The lungs are clear and expanded. There is no demonstrated pleural abnormality. Normal size heart. Normal mediastinum and bhakti. Normal visualized pulmonary arteries. Normal visualized aortic arch and descending thoracic aorta. Normal visualized thoracic spine. Normal visualized ribs, clavicles, and shoulders. There is no demonstrated abnormality of the visualized soft tissue structures of the upper abdomen. RAD/Chest PA and Lateral IMPRESSION: No active disease. Electronically Signed: Jethro Kim MD at 8:31 EDT ,
[2023-12-23 08:21] LABS: Internal QC Validated? YES +Cl - CLEAR BKGD; Pregnancy, Serum, hCG Quali. NEGATIVE Negative
[2023-12-23 08:28] LABS: Anion Gap 7 (5-15); BUN 8 mg/dL (7-18); BUN/Creat Ratio 9.6 RATIO (10-20); Calcium,Total 8.9 mg/dL (8.5-10.1); Chloride 105 mmol/L (98-107); Creatinine, Serum 0.83 mg/dL (0.55-1.02); EST Glomerular Filtration Rate 78 mL/min (>60); Est Glom Filt Rate - Afr Amer 95 mL/min (>60); Estimated Creatinine Clearance 64.98 ml/min; Glucose 89 mg/dL (74-106); Potassium 3.5 mmol/L (3.5-5.1); Sodium Level 137 mmol/L (136-145)
[2023-12-23 09:00] VITALS: BP 127/72; PULSE 90; RESP 16; O2SAT 99
[2023-12-23 09:09] LABS: Bacteria 0 SEEN /hpf (None Seen); Mucous, Urine 0 SEEN /hpf (<or=2+); Squamous Epithelial Cells - UA 0 SEEN /hpf (5-10); White Blood Cells 0 SEEN /hpf (0-5)
[2023-12-23 09:16] LABS: Color, Urine Yellow (Yellow); Glucose, Dipstick Normal (Normal); Ketone-Dipstick 50 mg/dl (Negative); Leukocyte Esterase-Dipstick Negative /ul (Negative); Nitrite-Dipstick Negative (Negative); Occult Blood-Urine 50 /ul (Negative); Protein-Dipstick 15 mg/dl (Negative); Urine Bilirubin Dipstick Negative (Negative); Urine Clarity Clear (Clear); Urine Urobilinogen Normal (Normal)
[2023-12-23 09:54] LABS: Red Blood Cells-Urine 0-5 SEEN /hpf (0-5)
[2023-12-23 11:09] VITALS: BP 99/89; PULSE 84; RESP 15; TEMP 36.6; O2SAT 98
== END 2023-12-23 11:10 | disposition home or self-care (01) ==
PROVIDERS: Emergency Provider Emergency Medicine; PCP Family Medicine; Visit Provider Emergency Medicine
DX: U07.1 COVID-19 (principal); G90.A Postural orthostatic tachycardia syndrome [POTS]
CPT/HCPCS: 71046; 80048; 81001; 84703; 85025; 96361; 96374; 99284; J2405

== ENCOUNTER → 2024-01-20 | Outpatient (CLI) | payer MEDICARE, MEDICAID, SELFPAY ==
[2024-01-26 10:07] LABS: Chlamydia By Nucleic Acid AMP Negative (Negative); Gonococcus By Nucleic Acid AMP Negative (Negative); Trich. Vag By Nucleic Acid AMP Negative (Negative)
[2024-01-27 16:16] LABS: HPV Reflexed? NOT INDICATED
== END | disposition home or self-care (01) ==
LOC: LABSPEC 17:43
PROVIDERS: PCP Family Medicine; Visit Provider Family Medicine
DX: Z12.4 Encounter for screening for malignant neoplasm of cervix (principal)
CPT/HCPCS: 87491; 87591; 88175; G0145

== ENCOUNTER → 2024-02-18 | Outpatient (CLI) | payer MEDICARE, MEDICAID, SELFPAY ==
--- NOTE | 2024-02-18 13:22 | BI_ITS ---
MAMMOGRAPHY - BILATERAL SCREENING REASON FOR EXAM: Female, 48 years old. Routine annual screening examination. PERTINENT HISTORY: Grandmothers with breast cancer. TECHNIQUE: Digital bilateral breast david (3D mammographic acquisition) in the CC and MLO projections. 2-D mediolateral oblique (MLO) and craniocaudad (CC) views of both breasts were obtained. CAD: Full Field Digital Mammography with Computer Added Detection was performed. COMPARISON: Comparison is made with prior study dated April 22, 2019 and April 19, 2016. FINDINGS: Breast Composition: The breasts are heterogeneously dense, which may obscure small masses. There are no dominant masses or suspicious calcifications. Stable 7 mm well-defined nodule in the deep inferior portion of the right breast. This was demonstrated to be a small cyst on prior sonogram. Stable small bilateral axillary lymph nodes. No other significant abnormalities are identified. There has been no significant change since the prior study. BI/SCRN MAMM (CAD)W/DAVID BILAT IMPRESSION: Stable bilateral screening mammogram. Yearly follow-up mammogram recommended. (A) ASSESSMENT CATEGORY: BIRADS Category 2: Benign. A letter regarding these results will be sent to the patient by the facility within 30 days. Approximately 10% of breast cancers are not detected by mammography. A normal mammogram should not delay biopsy of a clinically suspicious abnormality. [id number] Electronically Signed: Frandy Hutchinson MD at 14:02 EDT ,
== END | disposition home or self-care (01) ==
LOC: OPBI 13:22
PROVIDERS: PCP Family Medicine; Referring Provider Family Medicine; Visit Provider Family Medicine
DX: Z12.31 Encounter for screening mammogram for malignant neoplasm of breast (principal)
CPT/HCPCS: 77063; 77067

== ENCOUNTER → 2025-03-05 | Outpatient (CLI) | payer MEDICARE, MEDICAID, SELFPAY ==
--- OUTSIDE RECORDS SUMMARY | 2025-03-05 16:42 | XMS RPT_ITS | CCD ---
Author Organization [facility] Care Team Providers Care Signal Helper Name Role Phone Erica Art Unavailable Unavailable Erica Art Unavailable Unavailable Sarah, May Unavailable Unavailable Sarah, May Unavailable Unavailable Caitliniff, Luisa Hardeep Primary Care Provider Jochela, Luisa Hardeep Primary Care Provider Nilay, Luisa Hardeep Primary Care Provider Nilay Luisa Hardeep Primary Care Provider [phone] Jochela, Luisa Hardeep Primary Care Provider [phone] Jolliff, Luisa Hardeep Primary Care Provider [phone] Jolliff, Luisa S Primary Care Unavailable Jolliff, Luisa S Attending Unavailable Jolliff, Luisa S Attending Unavailable Jolliff, Luisa S Referring Unavailable Jolliff, Luisa S Primary Care Unavailable Jolliff, Luisa S Primary Care Unavailable Damien De La Cruz Attending Unavailable Jolliff, Luisa S Primary Care Unavailable Gaurav Silver Attending Unavailabl Mohit Teresa Referring Unavailable Mohit Henley Referring Unavailable Jolliff, Luisa S Primary Care Unavailable Mohit Henley Attending Unavailable VOLCHKO, VINI Admitting Unavailable VOLCHKO VINI Attending Unavailable JOLLIFF, LUISA HARDEEP Primary Care Unavailable VOLCHKOVIPINVINI Admitting Unavailable VOLCHKO, VINI Attending Unavailable JOLLIFF, LUISA HARDEEP Primary Care Unavailable ERIKA CONWAY Attending Unavailable JOLLIFF, LUISA HARDEEP Primary Care Unavailable VOLCHVIPIN VELEZOLAS Admitting Unavailable VOLCHVIPIN VELEZOLAS Attending Unavailable JOLLIFF, LUISA HARDEEP Primary Care Unavailable SHIMONCHVIPIN VELEZOLAS Admitting Unavailable VOLCHKO VINI Attending Unavailable JOLLIFF, LUISA HARDEEP Primary Care Unavailable VOLCHKO VINI Admitting Unavailable VOLCHKOVINI Attending Unavailable JOLLIFF, LUISA HARDEEP Primary Care Unavailable ERIKA CONWAY Attending Unavailable JOLLIFF, LUISA HARDEEP Primary Care Unavailable VOLCHKOCHARLYS Admitting Unavailable VOLCHKOVINI Attending Unavailable JOLLIFF, LUISA HARDEEP Primary Care Unavailable VOLCHKOCHARLYS Admitting Unavailable VOLCHKOVINI Attending Unavailable JOLLIFF, LUISA HARDEEP Primary Care Unavailable VOLCHKOCHARLYS Admitting Unavailable VOLCHKOVINI Attending Unavailable JOLLIFF, LUISA HARDEEP Primary Care Unavailable VOLCHKO, VINI Admitting Unavailable VOLCHKO, VINI Attending Unavailable JOLLIFF, LUISA HARDEEP Primary Care Unavailable VOLCHKO, VINI Admitting Unavailable VOLCHKO, VINI Attending Unavailable JOLLIFF, LUISA HARDEEP Primary Care Unavailable ERIKA CONWAY Attending Unavailable JOLLIFF, LUISA HARDEEP Primary Care Unavailable VOLCHKOCHARLYS Admitting Unavailable VOLCHKOVINI Attending Unavailable JOLLIFF, LUISA HARDEEP Primary Care Unavailable VOLCHKOCHARLYS Admitting Unavailable VOLCHKOVINI Attending Unavailable JOLLIFF, LUISA HARDEEP Primary Care Unavailable VOLCHKOCHARLYS Admitting Unavailable VOLCHKOVINI Attending Unavailable JOLLIFF, LUISA HARDEEP Primary Care Unavailable VOLCHKOCHARLYS Admitting Unavailable VOLCHKOVINI Attending Unavailable JOLLIFF, LUISA HARDEEP Primary Care Unavailable VOLCHKOCHARLYS Admitting Unavailable VOLCHKOVINI Attending Unavailable JOLLIFF, LUISA HARDEEP Primary Care Unavailable ERIKA CONWAY Attending Unavailable JOLLIFF, LUISA HARDEEP Primary Care Unavailable VOLCHKOCHARLYS Admitting Unavailable VOLCHKOVINI Attending Unavailable JOLLIFF, LUISA HARDEEP Primary Care Unavailable VOLCHKOCHARLYS Admitting Unavailable VOLCHKOVINI Attending Unavailable JOLLIFF, LUISA HARDEEP Primary Care Unavailable VOLCHKO VINI Admitting Unavailable VOLCHKO VINI Attending Unavailable JOLLIFF, LUISA HARDEEP Primary Care Unavailable Allergies Allergy Classification Reported Allergen(s) Allergy Type Date of Onset Reaction(s) Facility Cephalosporins (antibiotic) (1 source) Cephalexin Drug Allergy 08-11-2010 Unknown [facility] Opioid Agonists (1 source) Morphine Drug Allergy 08-14-2012 [facility] (20 sources) Cephalexin; Translations: [cephalexin] Drug Allergy 08-11-2010 Unknown [facility] Work Phone: (20 sources) Morphine; Translations: [morphine] Drug Allergy 08-14-2012 [facility] Work Phone: (20 sources) PERFUMES; Translations: [PERFUMES] drug allergy 08-14-[address] [facility] Work Phone: (4 sources) ADHESIVE BANDAGES; Translations: [ADHESIVE BANDAGES] allergy to substance 08-14-2012 [facility] Work Phone: (20 sources) Adhesive agent; Translations: [ADHESIVE] Propensity to adverse reactions 09-10-2002 [facility] (20 sources) Fragrances; Translations: [FRAGRANCES] Allergy to substance 07-23-2012 Rash, [facility] (2 sources) Adhesive Tape; Translations: [adhesive tape] Allergy to substance 08-12-2023 [facility] (20 sources) perfume; Translations: [perfume] Allergy to substance 08-12-2023 [facility] Medications Current Medications Medication Drug Class(es) Dates Sig (Normalized) Sig (Original) ipratropium bromide 0.042 mg/actuat metered dose nasal spray (20 sources) Anticholinergic Start: 07-31-2023 Ipratropium [place] Active 2 SPRAY INTRANASAL NEEDED July 31, 2023 12:00am Start: 11-25-2021 End: 01-02-2022 take 2 spray(s) nasal route twice daily ipratropium bromide (ATROVENT) 42 mcg (0.06 %) nasal spray SPRAY 2 SPRAYS INTO EACH NOSTRIL TWICE A DAY 11/25/2021 Active Comment on above: ipratropium bromide 42 mcg (0.06 %) nasal spray SPRAY 2 SPRAYS INTO BOTH NOSTRILS TWICE A DAY NEEDED SPRAY 2 SPRAYS INTO EACH NOSTRIL TWICE A DAY megestrol acetate 40 mg/ml oral suspension (20 sources) Progestin Start: 07-31-2023 take 80 mg by mouth once daily Megestrol Active 80 MG PO DAILY July 31, 2023 12:00am Start: 08-11-2010 End: 01-02-2022 megestrol (MEGACE) 40 mg tab let Take by mouth. 0 08/11/2010 01/02/2022 Discontinued take 2 mL by mouth twice daily m egestrol (MEGACE) 400 mg/10 mL (40 mg/mL) suspension megestrol 400 mg/10 mL (40 mg/mL) oral suspension TAKE 2 ML TWICE A DAY BY ORAL ROUTE FOR 90 DAYS. Active Comment on above: once daily. megestrol 400 mg/10 mL (40 mg/mL) oral suspension TAKE 2 ML TWICE A DAY BY ORAL ROUTE FOR 90 DAYS. Take by mouth. modafinil 100 mg oral tablet (20 sources) Sympathomimetic-lik e Agent Start: 02-24-20 End: 03-25-20 take 1 tablet by mouth once daily modafinil (PROVIGIL) 100 mg tablet Take 1 tablet by mouth once daily for 30 days. 02/23/2022 Active Comment on above: Take 1 tablet by giuliano once daily for 30 days. montelukast 10 mg oral tablet (20 sources) Leukotriene Receptor Antagonist Start: 08-15-19 13 take 1 tablet by mouth at bedtime Montelukast (Montelukast 10 Mg Tablet) 10 mg tablet Active 10 MG PO AT BEDTIME July 31, 2023 12:00am Comment on above: Take 10 mg by mouth daily at bedtime. Take one(1) tablet daily. Multivitamin (Daily Multi-Vitamin) tablet (1 source) Start: 07-31-19 24 take 1 tablet by mouth once daily Multivitamin (Daily Multi-Vitamin) tablet Active 1 TABLET PO DAILY July 31, 2023 12:00am ondansetron 8 mg disintegrating oral tablet (20 sources) Serotonin-3 Receptor Antagonist Start: 11-28-19 14 ondansetron orally disintegrating (ZOFRAN ODT) 8 mg disintegrating tablet 11/27/2013 Active Start: 11-06-2007 take 1 tablet by giuliano th three times daily ondansetron (ZOFRAN) 8 mg tablet ondansetron HCl 8 mg tablet TAKE 1 TABLET BY MOUTH THREE TIMES A DAY 11/06/2007 Active Start: 11-06-2007 ZOFRAN 8 MG TA BS As needed up to 3 tablets per day ONDANSETRON HCL [id number] Nita Braun Comment on above: ondansetron HCl 8 mg tablet TAKE 1 TABLET BY MOUTH THREE TIMES A DAY oxyCODONE hydrochloride 20 mg/ml oral solution (20 sources) Opioid Agonist Start: 01-05-2025 End: 03-07-2025 oxyCODONE concentrate (ROXICODONE) 20 mg/mL concentrated solution Indications: Fohghpr-Xzxio-Kevjk disease Take 0.5-1 mL by mouth every 6 hours as needed for pain for up to 30 days. Continue working on decreasing your dose by 0.5 mL at a time as tolerated. 120 mL 02/05/2025 03/07/2025 Active Start: 12-21-2024 End: 01-20-2025 oxyCODONE concentrate (ROXIC ODONE) 20 mg/mL concentrated solution Indications: Vpgprmr-Loael-Mskln disease Take 0.5-1 mL by mouth every 4 hours as needed for pain for up to 30 days. Continue working on decreasing your dose by 0.5 mL at a time as tolerated. Patient should start on December 21, 2024. 150 mL 12/21/2024 01/05/2025 Discontinued Start: 10-11-2024 End: 12-19-2024 oxyCODONE concentrate (ROXIC ODONE) 20 mg/mL concentrated solution Indications: Aonpmpb-Rxkkm-Gezcx disease Take 0.5-1 mL by mouth every 4 hours as needed for pain for up to 30 days. Continue working on decreasing your dose by 0.5 mL at a time as tolerated. 150 mL 11/19/2024 12/18/2024 Discontinued Start: 08-13-2024 End: 10-06-2024 oxyCODONE concentrate (ROXIC ODONE) 20 mg/mL concentrated solution Indications: Itznhio-Bqaas-Revxl disease Take 0.5-1 mL by mouth every 4 hours as needed for pain for up to 25 days. Continue working on decreasing your dose by 0.5 mL at a time as tolerated. 150 mL 09/11/2024 09/18/2024 Discontinued Start: 07-14-2024 End: 08-08-2024 oxyCODONE concentrate (ROXIC ODONE) 20 mg/mL concentrated solution Indications: Fqmpubk-Hupcu-Joyfu disease Take 0.5-1 mL by mouth every 4 hours as needed for pain for up to 25 days. Patient should start on July 14, 2024. 150 mL 07/14/2024 08/08/2024 Active Start: 06-18-2024 End: 07-13-2024 oxyCODONE concentrate (ROXIC ODONE) 20 mg/mL concentrated solution Indications: Hkpvwgh-Yedgb-Hzngk disease Take 0.5-1 mL by mouth every 4 hours as needed for pain for up to 25 days. Take 0.5-1mL every 4 hours as needed for pain for up to 25 days Patient should start on June 18, 2024. 150 mL 06/18/2024 06/23/2024 Discontinued Start: 05-19-2024 End: 06-16-2024 oxyCODONE concentrate (ROXIC ODONE) 20 mg/mL concentrated solution Indications: Ycosqdl-Lztfb-Odfcc disease Take 0.5-1 mL by mouth every 4 hours as needed for pain for up to 25 days. Take 0.5-1mL every 4 hours as needed for pain for up to 25 days Patient should start on May 19, 2024. 150 mL 05/19/2024 06/16/2024 Discontinued Start: 04-24-2024 End: 05-19-2024 oxyCODONE concentrate (ROXIC ODONE) 20 mg/mL concentrated solution Indications: Djepjww-Ktxzo-Hfygp disease Take 0.5-1 mL by mouth every 4 hours as needed for pain for up to 25 days. Take 0.5-1mL every 4 hours as needed for pain for up to 25 days Patient should start on April 24, 2024. 150 mL 04/24/2024 05/18/2024 Discontinued Start: 02-21-2024 End: 04-19-2024 take 0.5-1 mL by mouth every four hours as needed for pain and pain, then take 0.5-1 mL by mouth every four hours as needed for pain and pain oxyCODONE concentrate (ROXICODONE) 20 mg/mL concentrated solution Indications: Lqskdyy-Wdvcx-Fpsup disease Take 0.5-1 mL by mouth every 4 hours as needed for pain for up to 25 days. Take 0.5-1mL every 4 hours as needed for pain for up to 25 days 150 mL 03/25/2024 04/17/2024 Discontinued Start: 01-20-2024 End: 02-14-2024 take 0.5-1 mL by mouth every four [...] for up to 25 days 150 mL 01/20/2024 02/14/2024 Active Start: 12-20-2023 End: 01-17-2024 oxyCODONE concentrate (ROXIC ODONE) 20 mg/mL concentrated solution Indications: Chronic pain syndrome Take 0.5-1 mL by mouth every 4 hours as needed for pain for up to 25 days. Take 0.5-1mL every 4 hours as needed for pain for up to 25 days Do not start before December 20, 2023. 150 mL 0 12/20/2023 01/17/2024 Discontinued Start: 10-24-2023 End: 12-20-2023 take 0.5-1 mL by mouth every four [...] up to 25 days 150 mL 0 11/25/2023 12/18/2023 Discontinued Start: 10-02-2023 End: 10-27-2023 oxyCODONE concentrate (ROXIC ODONE) 20 mg/mL concentrated solution Indications: Chronic pain syndrome Take 0.5-1 mL by mouth every 4 hours as needed for pain for up to 25 days. Take 0.5-1mL every 4 hours as needed for pain for up to 25 days Do not start before October 02, 2023. 150 mL 0 10/02/2023 10/24/2023 Discontinued Start: 07-31-2023 take 20 mg by mouth every four hours Oxycodone Active 20 MG PO Q4H July 31, 2023 12:00am Start: 06-19-2023 End: 09-27-2023 take 0.5-1 mL by mouth every four [...] up to 25 days 150 mL 0 09/02/2023 09/19/2023 Discontinued Start: 05-08-2023 End: 06-02-2023 oxyCODONE concentrate (ROXIC ODONE) 20 mg/mL concentrated solution Indications: Chronic pain syndrome Take 0.5-1 mL by mouth every 4 hours as needed for pain for up to 25 days. Take 0.5-1mL every 4 hours as needed for pain for up to 25 days Do not start before May 08, 2023. 150 mL 0 05/08/2023 06/02/2023 Active Start: 04-07-2023 End: 05-05-2023 take 0.5-1 mL by mouth every four [...] up to 25 days 150 mL 0 04/07/2023 05/05/2023 Discontinued Start: 03-06-2023 End: 03-31-2023 take 0.5-1 mL by mouth every four [...] up to 25 days 150 mL 0 03/06/2023 03/31/2023 Active Start: 03-04-2023 End: 03-29-2023 oxyCODONE concentrate (ROXIC ODONE) 20 mg/mL concentrated solution Indications: Chronic pain syndrome Take 0.5-1 mL by mouth every 4 hours as needed for pain for up to 25 days. Take 0.5-1mL every 4 hours as needed for pain for up to 25 days Do not start before March 04, 2023. 150 mL 0 03/04/2023 03/29/2023 Active Start: 02-01-2023 End: 02-26-2023 oxyCODONE concentrate (ROXIC ODONE) 20 mg/mL concentrated solution Indications: Chronic pain syndrome Take 0.5-1 mL by mouth every 4 hours as needed for pain for up to 25 days. Take 0.5-1mL every 4 hours as needed for pain for up to 25 days Do not start before February 01, 2023. 150 mL 0 02/01/2023 02/22/2023 Discontinued Start: 12-27-2022 End: 01-23-2023 oxyCODONE concentrate (ROXIC ODONE) 20 mg/mL concentrated solution Indications: Chronic pain syndrome Take 0.5-1 mL by mouth every 4 hours as needed for pain for up to 25 days. Take 0.5-1mL every 4 hours as needed for pain for up to 25 days Do not start before December 27, 2022. 150 mL 0 12/27/2022 01/23/2023 Discontinued Start: 11-01-2022 End: 12-22-2022 take 0.5-1 mL by mouth every four [...] up to 25 days 150 mL 0 11/27/2022 12/19/2022 Discontinued Start: 09-18-2022 End: 11-01-2022 oxyCODONE concentrate (ROXIC ODONE) 20 mg/mL concentrated solution Indications: Chronic pain syndrome Take 0.5-1 mL by mouth every 4 hours as needed for pain for up to 25 days. Take 0.5-1mL every 4 hours as needed for pain for up to 25 days Do not start before September 18, 2022. 150 mL 0 09/18/2022 11/01/2022 Discontinued Start: 07-13-2022 End: 09-15-2022 take 0.5-1 mL by mouth every four [...] up to 25 days 150 mL 0 08/21/2022 09/12/2022 Discontinued Start: 06-17-2022 End: 07-12-2022 oxyCODONE concentrate (ROXIC ODONE) 20 mg/mL concentrated solution Indications: Chronic pain syndrome Take 0.5-1 mL by mouth every 4 hours as needed for pain for up to 25 days. Take 0.5-1mL every 4 hours as needed for pain for up to 25 days Do not start before June 17, 2022. 150 mL 0 06/17/2022 07/03/2022 Discontinued Start: 05-23-2022 End: 06-06-2022 take 0.5-1 mL by mouth every four [...] up to 25 days 150 mL 0 05/23/2022 06/06/2022 Discontinued Start: 05-18-2022 End: 06-12-2022 oxyCODONE concentrate (ROXIC ODONE) 20 mg/mL concentrated solution Indications: Chronic pain syndrome Take 0.5-1 mL by mouth every 4 hours as needed for pain for up to 25 days. Take 0.5-1mL every 4 hours as needed for pain for up to 25 days Do not start before May 18, 2022. 150 mL 0 05/18/2022 06/12/2022 Active Start: 03-23-2022 End: 05-15-2022 take 0.5-1 mL by mouth every four [...] up to 25 days 150 mL 0 04/20/2022 05/07/2022 Discontinued Start: 02-23-2022 End: 03-20-2022 take 0.5-1 mL by mouth every four [...] 25 days. Do not start before 12/20/2021 150 mL 0 02/23/2022 03/20/2022 Active Start: 01-17-2022 End: 02-11-2022 oxyCODONE concentrate (ROXIC ODONE) 20 mg/mL concentrated solution Indications: Chronic pain syndrome Take 0.5-1 mL by mouth every 4 hours as needed for pain for up to 25 days. Take 0.5-1mL every 4 hours as needed for pain for up to 25 days. Do not start before 12/20/2021 Do not start before January 17, 2022. 150 mL 0 01/17/2022 02/11/2022 Active Start: 12-20-2021 End: 01-14-2022 take 0.5 mL by mouth every four hours as needed for pain oxyCODONE concentrate (ROXICODONE) 20 mg/mL concentrated solution Indications: Chronic pain syndrome Take 0.5 mL by mouth every 4 hours as needed for pain for up to 25 days. Take 0.5-1mL every 4 hours as needed for pain for up to 25 days. Do not start before 12/20/2021 Do not start before December 20, 2021. 150 mL 0 12/20/2021 01/01/2022 Discontinued Start: 02-03-2014 End: 12-08-2021 oxyCODONE concentrate (ROXIC ODONE) 20 mg/mL concentrated solution Start: 08-14-2012 End: 01-01-2022 oxyCODONE IR (ROXICODONE) 10 mg tab Take by mouth. 0 08/14/2012 01/01/2022 Discontinued Start: 08-14-2012 OXYCODONE HCL 10 MG TABS One tablet every 4-6 hours as needed OXYCODONE HCL [id number] Levi Florez MD Comment on above: Take 0.5 mL by mouth every 4 hours as needed for pain for up to 25 days. Take 0.5-1mL every 4 hours as needed for pain for up to 25 days. Do not start before 12/20/2021 Do not start before December 20, 2021. Take by mouth. Take 0.5-1 mL by giuliano th every 4 hours as needed for pain for up to 25 days. Take 0.5-1mL every 4 hours as needed for pain for up to 25 days. Do not start before 12/20/2021 Do not start before January 17, 2022. Take 0.5-1 mL by giuliano th every 4 hours as needed for pain for up to 25 days. Take 0.5-1mL every 4 hours as needed for pain for up to 25 days. Do not start before 12/20/2021 Take 0.5-1 mL by giuliano th every 4 hours as needed for pain for up to 25 days. Take 0.5-1mL every 4 hours as needed for pain for up to 25 days Take 0.5-1 mL by giuliano th every 4 hours as needed for pain for up to 25 days. Take 0.5-1mL every 4 hours as needed for pain for up to 25 days Do not start before May 18, 2022. Take 0.5-1 mL by giuliano th every 4 hours as needed for pain for up to 25 days. Take 0.5-1mL every 4 hours as needed for pain for up to 25 days Do not start before June 17, 2022. Take 0.5-1 mL by giuliano th every 4 hours as needed for pain for up to 25 days. Take 0.5-1mL every 4 hours as needed for pain for up to 25 days Do not start before July 13, 2022. Take 0.5-1 mL by giuliano th every 4 hours as needed for pain for up to 25 days. Take 0.5-1mL every 4 hours as needed for pain for up to 25 days Do not start before September 18, 2022. Take 0.5-1 mL by giuliano th every 4 hours as needed for pain for up to 25 days. Take 0.5-1mL every 4 hours as needed for pain for up to 25 days Do not start before December 27, 2022. Take 0.5-1 mL by giuliano th every 4 hours as needed for pain for up to 25 days. Take 0.5-1mL every 4 hours as needed for pain for up to 25 days Do not start before February 01, 2023. Take 0.5-1 mL by giuliano th every 4 hours as needed for pain for up to 25 days. Take 0.5-1mL every 4 hours as needed for pain for up to 25 days Do not start before March 04, 2023. Take 0.5-1 mL by giuliano th every 4 hours as needed for pain for up to 25 days. Take 0.5-1mL every 4 hours as needed for pain for up to 25 days Do not start before May 08, 2023. Take 0.5-1 mL by giuliano th every 4 hours as needed for pain for up to 25 days. Take 0.5-1mL every 4 hours as needed for pain for up to 25 days Do not start before October 02, 2023. Completed/Discontinued Medications Medication Drug Class(es) Dates Sig (Normalized) Sig (Original) acetaminophen 65 mg/ml / oxyCODONE hydrochloride 1 mg/ml oral solution (8 sources) Opioid Agonist Start: 11-06-2007 End: 08-14-2012 ROXICET 5-325 MG/5ML SOLN 20 ml daily OXYCODONE-ACETAMINO PHEN [id number] Nita Braun Start: 11-06-2007 End: 08-14-2012 ROXICET 5-325 MG/5ML SOLN 20 ml daily OXYCODONE-ACETAMINOPHEN [id number] Nita Braun amcinonide 1 mg/ml topical cream (3 sources) Corticosteroid End: 01-02-2022 amcinonide (CYCLOCORT) 0.1 % cream amcinonide 0.1 % topical cream PRn 0 01/02/2022 Discontinued Comment on above: amcinonide 0.1 % top ical cream PRn aprepitant 125 mg powder for oral suspension (3 sources) Substance P/Neurokinin-1 Receptor Antagonist End: 01-02-2022 aprepitant (EMEND) 125 mg (25 mg/ mL final conc.) susr Emend 125 mg (25 mg/mL final conc.) oral suspension 0 01/02/2022 Discontinued Comment on above: Emend 125 mg (25 mg/ mL final conc.) oral suspension carisoprodol 350 mg oral tablet (2 sources) Muscle Relaxant Start: 06-08-2015 End: 12-08-2021 carisoprodol (SOMA) 350 mg tablet Soma 350 mg tablet 0 06/08/2015 12/08/2021 Discontinued (Discontinued by Patient) Comment on above: Soma 350 mg tablet chlorzoxazone 375 mg oral tablet (5 sources) Muscle Relaxant Start: 07-17-2018 End: 01-02-2022 chlorzoxazone (LORZONE) 375 mg tab Take by mouth. 0 07/17/2018 01/02/2022 Discontinued Comment on above: Take by mouth. clobetasol propionate 0.0005 mg/mg topical ointment (9 sources) Corticosteroid Start: 12-01-2013 End: 01-02-2022 clobetasol 0.05 % ointment Indications: Contact dermatitis and other eczema due to other specified agent , Contact dermatitis and other eczema, due to unspecified cause , Dyshidrosis , Hand eczema Apply to affected area(s) of acute dermatitis allergic rash spots on chest elsewhere on open areas of trunk, arms, legs bid (twice per day) selectively until clear as tolerated. AVOID face, eyes, and deep fold areas. 30 g 6 12/01/2013 01/02/2022 Discontinued Comment on above: Apply to affected ar ea(s) of acute dermatitis allergic rash spots on chest elsewhere on open areas of trunk, arms, legs bid (twice per day) selectively until clear as tolerated. AVOID face, eyes, and deep fold areas. diclofenac sodium 0.01 mg/mg topical gel (3 sources) Nonsteroidal Anti-inflammatory Drug End: 01-02-2022 diclofenac (VOLTAREN) 1 % topical gel Voltaren 1 % topical gel 0 01/02/2022 Discontinued Comment on above: Voltaren 1 % topical gel 1 ml epoetin apolonia 2000 unt/ml injection (8 sources) Erythropoiesis-stim ulating Agent Start: 01-04-2006 End: 06-29-2011 PROCRIT 2000 UNIT/ML SOLN Take as directed EPOETIN APOLONIA [id number] Nita Braun 1 ml erenumab-aooe 70 mg/ml auto-injector (1 source) Start: 11-01-2022 End: 11-27-2022 inject 1 mL by subcutaneous injection every month erenumab-aooe (AIMOVIG AUTOINJECTOR) 70 mg/mL auto-injector Inject 1 mL subcutaneously once every month. Do not shake. 1 mL 0 11/01/2022 11/27/2022 Discontinued Comment on above: Inject 1 mL subcutan eously once every month. Do not shake. fluticasone propionate 0.05 mg/actuat metered dose nasal spray (10 sources) Corticosteroid Start: 10-11-2016 FLONASE 50 MCG/ACT SUSP Take as directed FLUTICASONE PROPIONATE [id number] Levi Florez MD End: 12-08-2021 take 1 spray(s) nasal route once daily fluticasone (FLONASE) 50 mcg/actuation nasal spray Use 1 [place] in each nostril once daily. 0 12/08/2021 Discontinued (Course of therapy completed) Comment on above: Use 1 [place] in each nostril once daily. HYDROmorphone hydrochloride 4 mg oral tablet (8 sources) Opioid Agonist Start: 04-03-20 10 End: 06-29-19 12 DILAUDID 4 MG TABS as needed HYDROMORPHONE HCL [id number] Nita Braun ivabradine 5 mg oral tablet (3 sources) Hyperpolarization-act ivated Cyclic Nucleotide-gated Channel Livan End: 01-03-20 take 1 tablet by mouth twice daily ivabradine (CORLANOR) 5 mg tablet Corlanor 5 mg tablet Take 1 tablet twice a day by oral route for 90 days. 0 01/02/2022 Discontinued Comment on above: Corlanor 5 mg tablet Take 1 tablet twice a day by oral route for 90 days. lidocaine 50 mg/ml topical cream (5 sources) Antiarrhythmic, Amide Local Anesthetic Start: 12-02-19 End: 01-03-20 lidocaine (ANECREAM5) crea lidocaine 5% cream 0 12/02/2019 01/02/2022 Discontinued Comment on above: lidocaine 5% cream lidocaine 25 mg/ml / prilocaine 25 mg/ml topical cream (4 sources) Antiarrhythmic, Amide Local Anesthetic End: 01-31-20 lidocaine-prilocaine (EMLA) 2.5-2.5 % cream lidocaine-prilocaine 2.5 %-2.5 % topical cream 0 01/30/2022 Discontinued Comment on above: lidocaine-prilocaine 2.5 %-2.5 % topical cream loratadine 10 mg oral tablet (3 sources) End: 01-03-20 loratadine (CLARITIN) 10 mg tablet q 24 HR. 0 01/02/2022 Discontinued Comment on above: q 24 HR. 24 hr metoprolol succinate 25 mg extended release oral tablet (8 sources) beta-Adrenergic Livan Start: 08-12-19 End: 06-29-19 12 take 1 tablet by mouth once daily METOPROLOL SUCCINATE ER 25 MG AL89I-BMT One tablet by mouth daily METOPROLOL SUCCINATE [id number] Nita Braun mirtazapine 15 mg oral tablet (3 sources) Start: 11-28-19 End: 12-20-19 23 take 1 tablet by mouth once daily at bedtime mirtazapine (REMERON) 15 mg tablet Take 1 tablet by mouth daily at bedtime. 30 tablet 0 11/27/2022 12/19/2022 Discontinued Comment on above: Take 1 tablet by giuliano th daily at bedtime. mupirocin 0.02 mg/mg topical ointment (6 sources) RNA Synthetase Inhibitor Antibacterial Start: 12-02-19 End: 12-09-19 mupirocin 2 % ointment Indications: Contact dermatitis and other eczema, due to unspecified cause , Pyoderma, unspecified Apply to affected open sores selectively three(3) times daily for 1-2wks until healed and can switch to Aquaphor Healing Ointment for application to residual wound(s) after 1-2wks if still not healed but no longer infected. 30 g 9 12/01/2013 12/08/2021 Discontinued (Course of therapy completed) Comment on above: Apply to affected op en sores selectively three(3) times daily for 1-2wks until healed and can switch to Aquaphor Healing Ointment for application to residual wound(s) after 1-2wks if still not healed but no longer infected. naloxone hydrochloride 40 mg/ml nasal spray (8 sources) Opioid Antagonist Start: 02-26-20 naloxone 4 mg/actuation nasal spray (NARCAN) Use 1 spray in one nostril as needed for overdose. May repeat every 2 to 3 min in alternating nostrils until medical assistance is available 1 Each 0 02/25/2023 Active Comment on above: Use 1 spray in one n ostril as needed for overdose. May repeat every 2 to 3 min in alternating nostrils until medical assistance is available Naltrexone HCL, Bulk, 100 % powd (5 sources) Start: 06-08-20 End: 01-03-20 Naltrexone HCL, Bulk, 100 % powd naltrexone HCl (bulk) 100% powder 0 06/08/2020 01/02/2022 Discontinued Start: 06-08-2020 Naltrexone HCL , Bulk, 100 % powd naltrexone HCl (bulk) 100% powder 0 06/08/2020 Active Comment on above: naltrexone HCl (bulk ) 100% powder nebivolol 2.5 mg oral tablet (20 sources) Start: 02-22-20 nebivolol (BYSTOLIC) 2.5 mg tablet pregabalin 25 mg oral capsule (8 sources) Start: 09-30-19 10 End: 06-29-19 12 take 1 tablet by mouth once daily LYRICA 25 MG CAPS One tablet by mouth daily PREGABALIN [id number] Nita Braun propranolol hydrochloride 10 mg oral tablet (8 sources) beta-Adrenergic Livan Start: 08-12-19 11 End: 06-29-19 12 PROPRANOLOL HCL 10 MG TABS (Inderal) 1 tablet 3-4 X a day as needed PROPRANOLOL HCL [id number] Nita Braun tretinoin 0.25 mg/ml topical cream (9 sources) Retinoid Start: 12-02-19 14 End: 01-03-20 22 tretinoin (AVITA) 0.025 % topical cream Indications: Acne vulgaris Apply small amount (eg., pea-sized glob divided up) to entire area of acne on face every other day to once daily (qoday to qday) only in the evening for overnight, as tolerated and directed. Apply at least 1/2 hr after washing face and at least 1/2 hr before bedtime, for just overnight and then wash off in the AM. 45 g 6 12/01/2013 01/02/2022 Discontinued Comment on above: Apply small amount ( eg., pea-sized glob divided up) to entire area of acne on face every other day to once daily (qoday to qday) only in the evening for overnight, as tolerated and directed. Apply at least 1/2 hr after washing face and at least 1/2 hr before bedtime, for just overnight and then wash off in the AM. triamcinolone acetonide 1 mg/ml topical cream (6 sources) Corticosteroid Start: 12-02-19 14 End: 12-09-19 22 triamcinolone acetonide 0.1 % cream Indications: Contact dermatitis and other eczema, due to unspecified cause , Dyshidrosis , Atopic eczema Apply to eczematous dermatitis rash of arms and hands twice to three times per day until clear and then stop or taper off as able; AVOID face, eyes, eyelids and deep fold areas of groin and underarms. 80 g 12 12/01/2013 12/08/2021 Discontinued (Course of therapy completed) Comment on above: Apply to eczematous dermatitis rash of arms and hands twice to three times per day until clear and then stop or taper off as able; AVOID face, eyes, eyelids and deep fold areas of groin and underarms. 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, unspecified] Onset: 12-08-2021 Chronic Other congenital anomalies (1 source) Marfan's syndrome, unspecified; Translations: [Marfan's syndrome (HCC)] Onset: 12-08-2021 Chronic Other nervous system disorders [...] Chronic Other nervous system disorders (1 source) Hereditary motor and sensory neuropathy; 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 disease] Onset: 06-19-2023 Chronic Unclassified (20 sources) ASA CLASS III Onset: 02-09-2003 10-04-2003 Unclassified (2 sources) Chiquis-Danlos syndrome, unspecified; 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 (HCC)] Onset: 12-08-2021 Past or Other Problems Problem Classification Problem Date Documented Date Episodic/Chronic Allergic reactions (20 sources) Urticaria; Translations: [Urticaria, unspecified] Onset: 07-02-2007 Resolved: 10-14-2012 07-02-2007 Episodic Cardiac dysrhythmias (20 sources) Palpitations; Translations: [Palpitations] Onset: 08-11-2010 08-11-2010 Episodic Heart valve disorders (4 sources) Heart murmur; Translations: [Cardiac murmur, unspecified] Onset: 08-11-2010 08-11-2010 Episodic Other aftercare (20 sources) Long-term current use of opiate analgesic drug; Translations: [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] Onset: 02-23-2022 Episodic Other aftercare (1 source) 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; Translations: [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] Onset: 04-19-2022 [...] 12-02-2013 Episodic Other and unspecified benign neoplasm (20 sources) Dysplastic nevus of skin; Translations: [Melanocytic [...] Onset: 12-08-2021 Episodic Other connective tissue disease (2 sources) Myalgia, other site; Translations: [Myalgia, other site] Onset: 12-08-2021 Episodic Other connective tissue disease (1 source) Fibromyalgia; Translations: [Fibromyalgia] Onset: 12-08-2021 Episodic Other inflammatory condition of skin (20 sources) Itching of skin; Translations: [Pruritus, unspecified] Onset: 11-17-2009 11-17-2009 Episodic Other inflammatory condition of skin (20 sources) Seborrheic dermatitis; Translations: [Seborrheic dermatitis, unspecified] Onset: 07-02-2007 Resolved: 10-14-2012 12-02-2013 Episodic Other inflammatory condition of skin (20 sources) Pruritus of skin; Translations: [Pruritus, unspecified] Onset: 07-02-2007 Resolved: 10-14-2012 12-02-2013 Episodic Other inflammatory condition of skin (20 sources) Pruritus, unspecified; Translations: [Unspecified pruritic disorder] [...] [Other melanin hyperpigmentation] Onset: 12-02-2013 12-02-2013 Episodic Other skin disorders (20 sources) Acne; Translations: [Other acne] Onset: 07-02-2007 Resolved: 10-14-2012 10-14-2012 Episodic Other skin disorders (20 sources) Disorder of sebaceous gland; Translations: [Other specified follicular disorders] Onset: 07-02-2007 Resolved: 10-14-2012 10-14-2012 Episodic Otitis media and related conditions (1 source) Other specified disorders of Eustachian tube, bilateral; Translations: [Other specified disorders of Eustachian tube, bilateral] Onset: 08-16-2023 Episodic Skin and subcutaneous tissue infections (20 sources) Pyoderma; Translations: [Pyoderma] Onset: 08-09-2008 Resolved: 10-14-2012 12-02-2013 Episodic Syncope (4 sources) Syncope and collapse; Translations: [Syncope and collapse] Onset: 08-11-2010 08-11-2010 Episodic Results Test Name Value Interpretation Reference Range Facility OPERATIVE NOon 02-25-2025 OPERATIVE NO HNO ID: [id number] Author: VINI MCDONALD MD Service: Pain Management Author Type: Physician Type: Operative Report Filed: 02/25/2025 15:16 Note Text: Summary: TPI PATIENT: Capri Aguilar SURGEON: Primary: Vini Mcdonald MD : 1975 DATE OF SURGERY: February 25, 2025 PRE-OP Diagnosis: Myofascial pain syndrome [M79.18] POST-OP Diagnosis: Same Procedure: Procedure(s): INJECTION TRIGGER POINT THREE OR MORE MUSCLES (mid/lower back x 1 visit) Anesthesia Type: Local The following procedure was performed in the office today: Trigger Point Injection(s): () -Informed consent was obtained and all patient questions were answered. After discussing the risks, benefits, prognosis, and alternatives to the procedure, the patient expressed understanding and wished to proceed. UNIVERSAL PROTOCOL / SAFETY CHECKLIST Procedure to be Performed: Trigger point injections Sign In: A Moment of CARE was completed. Appropriate PPE (Personal Protective Equipment) worn by all providers involved with the procedure. Special equipment not required. Patient/Surrogate Stated/Verified: Patient name, Date of , Relevant allergies, and The intended procedure Time Out: Relevant labs, photos, and/or imaging studies have been reviewed. Intended patient and procedure match the source document(s) (e.g. consent, HANDP, associated studies [imaging, pathology]) match the intended patient and procedure. Consent obtained and matches the intended procedure. Yes. Correct side/site has been marked and visible. Medications required for this procedure are verified. Fire risk assessed and is not applicable. Implants: are not applicable. Sign Out: Specimens not collected. All instruments, equipment, possible retained foreign bodies are accounted for. Yes. The post-procedure plan of care has been communicated to the patient or surrogate. -Procedure: The trigger points injections were performed today in the office with aseptic technique. The patient tolerated the procedure well and was discharged after an appropriate period of observation. Trigger points injected (#): 26 Muscle groups: Bilateral thoracic paraspinous, lumbar paraspinous, gluteus wayne Injectate: total of 10 mL of 0.25% bupivacaine; distributed ~equally at each site. [facility] NURSING PROGon 02-23-2025 NURSING PROG HNO ID: [id number] Author: GAIL CROOKS MA Service: ? Author Type: Laydown Machine Operator Type: Nursing Progress Note Filed: 02/23/2025 15:53 Note Text: TPI Injections Pt does not take any blood thinners Pt is not diabetic Pt is not on any antibiotics Pt did not take any sedation Gail Crooks MA February 23, 2025 3:53 PM [facility] OPERATIVE NOon 02-23-2025 OPERATIVE NO HNO ID: [id number] Author: VINI MCDONALD MD Service: Pain Management Author Type: Physician Type: Operative Report Filed: 02/23/2025 17:04 Note Text: Summary: TPI PATIENT: Capri Aguilar SURGEON: Primary: Vini Mcdonald MD : 1975 DATE OF SURGERY: February 23, 2025 PRE-OP Diagnosis: Myofascial pain syndrome [M79.18] POST-OP Diagnosis: Same Procedure: Procedure(s): INJECTION TRIGGER POINT THREE OR MORE MUSCLES (neck/upper back x 1 visit) Anesthesia Type: Local The following procedure was performed in the office today: Trigger Point Injection(s): (20915) -Informed consent was obtained and all patient questions were answered. After discussing the risks, benefits, prognosis, and alternatives to the procedure, the patient expressed understanding and wished to proceed. UNIVERSAL PROTOCOL / SAFETY CHECKLIST Procedure to be Performed: Trigger point injections Sign In: A Moment of CARE was completed. Appropriate PPE (Personal Protective Equipment) worn by all providers involved with the procedure. Special equipment not required. Patient/Surrogate Stated/Verified: Patient name, Date of , Relevant allergies, and The intended procedure Time Out: Relevant labs, photos, and/or imaging studies have been reviewed. Intended patient and procedure match the source document(s) (e.g. consent, HANDP, associated studies [imaging, pathology]) match the intended patient and procedure. Consent obtained and matches the intended procedure. Yes. Correct side/site has been marked and visible. Medications required for this procedure are verified. Fire risk assessed and is not applicable. Implants: Are not applicable. Sign Out: Specimens not collected. All instruments, equipment, possible retained foreign bodies are accounted for. Yes. The post-procedure plan of care has been communicated to the patient or surrogate. -Procedure: The trigger points injections were performed today in the office with aseptic technique. The patient tolerated the procedure well and was discharged after an appropriate period of observation. Trigger points injected (#): 37 Muscle groups: Bilateral cervical paraspinous, trapezius, thoracic paraspinous, rhomboids Injectate: total of 20 mL of 0.25% bupivacaine; distributed ~equally at each site. [facility]JENNIE[facility] CAPRI AGUILAR ([id number]) 1975 F Date Time Provider Department 01/05/25 2:45 PM ERIKA CONWAY During your visit today, we recorded the following information about you: Pulse Respiration Blood pressure 91/minute 16/minute 126/80 Erika Conway PA-C 01/05/2025 3:17 PM Signed Subjective Capri Lynch aLuren is a 49 year old female. The patient primarily being seen for generalized body pain and headaches Patient was last seen on: 09/18/24 At that time, the treatment plan was: see notes Current Meds: oxycodone - noon Efficacy: helps Side effects: denies TENS unit: didn't help, allergic to the pads How often used: Benefit: Physical Therapy: Last UDS: 09/18/24 Last injection: 12/31/24, 12/29/24 - Trigger point injections OARRS reviewed At the present time, the patient reports benefit with her present analgesic therapy. She denies any adverse effects. She has only been using 3 mL/day so that her medication would stretch, which has affected her sleep at night and overall pain levels. Since her previous visit, she denies any hospitalizations or ER visits. She states that the trigger point injections helped relieve around 80-85% of the muscle pain and have allowed her to be more active. She is scheduled for botox later today to help with her migraines which have been increasing in both frequency and severity due to being time for her next botox injections. The visit was done today due to needing an updated office visit in order to get her medications sent to the pharmacy. 12/31/2024 12/31/2024 INTAKE PAIN ASSESSMENT Pain Level 7 7 Pain Location Back-Lower Back-Lower Description Aching;Throbbing;Sor e;Tightness;Stiffnes s Aching;Throbbing;Sor e;Stiffness Pain Assessment Assessment Reassessment 09/18/2024 01/05/2025 Pain Disability Index Family/Home Responsibilities: This category includes chores or duties performed around the house (e.g. yard work), errands or favors for other family members (e.g. driving the children to school) 0 No Disability 0 No Disability Recreation: This category includes hobbies, sports, and other similar leisure time activities 0 No disability 0 No disability Social Activity: This category refers to activities which involve participation with friends and acquaintances, other than family members. It includes parties, theater, concerts, dinning out, and other social functions 0 No disability 0 No disability Occupation: This category refers to activities that are a part of or directly related to ones' job. This includes non-paying jobs as well, such as that of a housewife or volunteer worker 0 No disability 0 No disability Sexual Behavior: This category refers to the frequency and quality of one's sex life 0 No disability 0 No disability Self Care: This category includes activities which involve personal maintenance and independent daily living (e.g. 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 Other acne Persistent vomiting PAST SURGICAL HISTORY Procedure Laterality Date EAR TUBES HX ESOPHAGOGASTRODUODEN OSCOPY TRANSORAL DIAGNOSTIC 01/04/03 EGD EXTRACTION, ERUPTED TOOTH OR EXPOSED ROOT (ELEVATION AND/OR FORCEPS REMOVAL) 99 WISODOM TEETH FOOT SURGERY HX HAMMERTOE REVISION, ONE TOE 95, 97 Bialteral/ hammertoe AND arches KNEE SURGERY HX MYRINGOTOMY ASPIRAND/EUSTACHIAN TUBE NFLTJ ANES 05/20 Myringotomy/tubes PAST SURGICAL HISTORY OF , , , FOOT, KNEE,ANKLES PAST SURGICAL HISTORY OF 2002 MUSCLE BIOPSY PAST SURGICAL HISTORY OF 1997 CARDIAC SURGERY TONSILLECTOMY AND ADENOIDECTOMY TONSILLECTOMY PRIMARY/SECONDARY Tonsillectomy Social History Tobacco Use Smoking status: Never Smokeless tobacco: Never Substance Use Topics Alcohol use: Not Currently Drug use: No Review of Systems Constitutional: Negative for fever and unexpected weight change. Musculoskeletal: + neck pain, back pain, numbness, tingling, muscle cramps/weakness, stiffness, arthritis, leg pain at night, and leg pain with exertion. Neurological: Positive for headaches. Objective BP 126/80 (BP Site: Left Arm, BP Position: Sitting) Pulse 91 Resp 16 LMP (LMP Unknown) SpO2 99% (more content not included)... [facility] OPERATIVE NOon 01-05-2025 OPERATIVE NO HNO ID: [id number] Author: VINI MCDNOALD MD Service: Pain Management Author Type: Anesthesiologist Type: Operative Report Filed: 01/05/2025 15:28 Note Text: Summary: Botox Inj PATIENT: Capri Aguilar SURGEON: Primary: Vini Mcdonald MD : 1975 DATE OF SURGERY: January 05, 2025 PRE-OP Diagnosis: 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 [G43.711] POST-OP Diagnosis: Same Procedure: Procedure(s): CHEMODENERVATION OF MUSCLE(S) INNERVATED BY FACIAL, TRIGEMINAL, CERVICAL SPINAL AND ACCESSORY NERVES, BILATERAL Anesthesia Type: Local The following procedure was performed in the office today: Botox Injection PROCEDURE: Botox injection CPT code: 36069 PREPROCEDURE DIAGNOSIS: Migraine headache POSTPROCEDURE DIAGNOSIS: same ANESTHESIA: none PROCEDURE REPORT: The risks and benefits of the procedure were explained to the patient and all questions were answered. The patient gave consent to proceed with the procedure. UNIVERSAL PROTOCOL / SAFETY CHECKLIST Procedure to be Performed: Botox injections Sign In: A Moment of CARE was completed. Appropriate PPE (Personal Protective Equipment) worn by all providers involved with the procedure. Special equipment not required. Patient/Surrogate Stated/Verified: Patient name, Date of , Relevant allergies, and The intended procedure Time Out: Relevant labs, photos, and/or imaging studies are not applicable. Intended patient and procedure match the source document(s) (e.g. consent, HANDP, associated studies [imaging, pathology]) match the intended patient and procedure. Consent obtained and matches the intended procedure. Yes. Correct side/site has been marked and visible. Medications required for this procedure are verified. Fire risk assessed and is not applicable. Implants: are not applicable. Sign Out: Specimens not collected. All instruments, equipment, possible retained foreign bodies are accounted for. Yes. The post-procedure plan of care has been communicated to the patient or surrogate. The skin was prepped with alcohol. BOTOX Lot Number: [id number] BOTOX was reconstituted to a concentration of 5 U/0.1mL. The following injections were made using a 30G needle: 5 Botox units to the procerus muscle 5 Botox units to the right senior hydrogeologist supercilii muscle 5 Botox units to the left senior hydrogeologist supercilii muscle 30 Botox units to the frontalis muscle 30 Botox units to the right temporalis muscle 30 Botox units to the left temporalis muscle 15 Botox units to the right occipitalis muscle 15 Botox units to the left occipitalis muscle 10 Botox units to the right cervical paraspinals 10 Botox units to the left cervical paraspinals Total Units Used: 155 Total Units Wasted: 45 The needle was withdrawn intact. The patient tolerated the procedure well with no complications noted. [facility] OPERATIVE NOon 12-31-2024 OPERATIVE NO HNO ID: [id number] Author: VINI MCDONALD MD Service: Pain Management Author Type: Anesthesiologist Type: Operative Report Filed: 12/31/2024 16:14 Note Text: Summary: TPI PATIENT: Capri Cris Schusteron SURGEON: Primary: Vini Mcdonald MD : 1975 DATE OF SURGERY: December 31, 2024 PRE-OP Diagnosis: Myofascial pain syndrome [M79.18] Fibromyalgia [M79.7] POST-OP Diagnosis: Same Procedure: Procedure(s): INJECTION TRIGGER POINT THREE OR MORE MUSCLES (mid/lower back) Anesthesia Type: Local The following procedure was performed in the office today: Trigger Point Injection(s): (57291) -Informed consent was obtained and all patient questions were answered. After discussing the risks, benefits, prognosis, and alternatives to the procedure, the patient expressed understanding and wished to proceed. UNIVERSAL PROTOCOL / SAFETY CHECKLIST Procedure to be Performed: Trigger point injections Sign In: A Moment of CARE was completed. Appropriate PPE (Personal Protective Equipment) worn by all providers involved with the procedure. Special equipment not required. Patient/Surrogate Stated/Verified: Patient name, Date of , Relevant allergies, and The intended procedure Time Out: Relevant labs, photos, and/or imaging studies are not applicable. Intended patient and procedure match the source document(s) (e.g. consent, HANDP, associated studies [imaging, pathology]) match the intended patient and procedure. Consent obtained and matches the intended procedure. Yes. Correct side/site has been marked and visible. Medications required for this procedure are verified. Fire risk assessed and is not applicable. Implants: are not applicable. Sign Out: Specimens not collected. All instruments, equipment, possible retained foreign bodies are accounted for. Yes. The post-procedure plan of care has been communicated to the patient or surrogate. -Procedure: The trigger points injections were performed today in the office with aseptic technique. The patient tolerated the procedure well and was discharged after an appropriate period of observation. Trigger points injected (#): 27 Muscle groups: Bilateral thoracic paraspinous, lumbar paraspinous, gluteus wayne Injectate: total of 10- mL of 0.25% bupivacaine; distributed ~equally at each site. [facility] Derian 12-30-2024 VISHAL Telephone (BEST) CAPRI AGUILAR ([id number]) 1975 F Date Time Provider Department 12/30/24 VINI MCDONALD During your visit today, we recorded the following information about you: Ana King 12/30/2024 1:14 PM Signed 1 Allergies As of Date: 12/30/2024 Noted Allergy Reaction CEPHALEXIN 08/11/2010 16 - Unknown MORPHINE 08/14/2012 4 - Hives PERFUME 08/12/2023 4 - Hives PERFUMES 08/14/2012 16 - Unknown ADHESIVE 09/10/2002 Date Reviewed: 12/29/2024 Reviewed by: Kimberli Freedman RN - Fully Assessed Prescriptions as of 12/30/2024 - oxyCODONE concentrate (ROXICODONE) 20 mg/mL concentrated solution Take 0.5-1 mL by mouth every 4 hours as needed for pain for up to 30 days. Continue working on decreasing your dose by 0.5 mL at a time as tolerated. Patient should start on December 21, 2024. - modafinil (PROVIGIL) 100 mg tablet Take 1 tablet by mouth once daily for 30 days. - ipratropium bromide (ATROVENT) 42 mcg (0.06 %) nasal spray SPRAY 2 SPRAYS INTO EACH NOSTRIL TWICE A DAY - ondansetron (ZOFRAN) 8 mg tablet ondansetron HCl 8 mg tablet TAKE 1 TABLET BY MOUTH THREE TIMES A DAY - megestrol (MEGACE) 400 mg/10 mL (40 mg/mL) suspension megestrol 400 mg/10 mL (40 mg/mL) oral suspension TAKE 2 ML TWICE A DAY BY ORAL ROUTE FOR 90 DAYS. - ondansetron orally disintegrating (ZOFRAN ODT) 8 mg disintegrating tablet - montelukast 10 mg tablet Take 10 mg by mouth daily at bedtime. Take one(1) tablet daily. 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] 02/07/2004 Migraine variant [G43.809] 03/13/2005 Other acne [L70.8] 07/02/2007 10/14/2012 Contact dermatitis and other eczema, due to uns*07/02/2007 10/14/2012 Contact dermatitis and other eczema due to othe*07/02/2007 10/14/2012 Seborrheic dermatitis, unspecified [L21.9] 07/02/2007 10/14/2012 XEROSIS///SEBACEOUS GLAND DIS NEC [L73.8] 07/02/2007 10/14/2012 Unspecified pruritic disorder [L29.9] 07/02/2007 10/14/2012 URTICARIA NOS [L50.9] 07/02/2007 DERMATOGRAPHIC URTICARIA [L50.3] 07/02/2007 IDIOPATHIC URTICARIA [L50.1] 08/09/2008 Other chronic dermatitis due to solar radiation*08/09/2008 10/14/2012 DYSHIDROSIS [L30.1] 08/09/2008 Pyoderma, unspecified [L08.0] 08/09/2008 10/14/2012 Pruritus [L29.9] 11/17/2009 Dermographism [L50.3] 11/17/2009 Acne Vulgaris: Grade III [L70.0] 07/25/2012 Xerosis cutis [L85.3] 07/25/2012 Eczematous dermatitis [L30.9] 07/25/2012 Atopic eczema [L20.9] 07/25/2012 Other atopic dermatitis and related conditions *07/25/2012 Hand eczema [L30.9] 07/25/2012 Melanocytic nevus of upper extremity [D22.60] 10/14/2012 Primary focal hyperhidrosis [L74.519] 10/14/2012 Milia [L72.0] 05/31/2013 Telangiectasias [I78.1] 05/31/2013 Capillary angioma [I78.1] 05/31/2013 Atypical nevus of L upper arm [D22.60] 12/02/2013 Milial cyst [L72.0] 12/02/2013 Contact dermatitis and other eczema, due to uns*12/02/2013 Seborrheic dermatitis, unspecified [L21.9] 12/02/2013 Unspecified pruritic disorder [L29.9] 12/02/2013 Contact dermatitis and other eczema due to othe*12/02/2013 Pyoderma, unspecified [L08.0] 12/02/2013 Actinic skin damage [L57.8] 12/02/2013 Solar lentigo [L81.4] 12/02/2013 Open wound(s) (multiple) of unspecified site(s)*02/02/2014 Abnormal mammogram [R92.8] 02/23/2014 Chronic pain syndrome [G89.4] 12/08/2021 Myofascial pain syndrome [M79.18] 12/08/2021 Fibromyalgia [M79.7] 12/08/2021 Intractable chronic migraine without aura and w*12/08/2021 Marfan's syndrome [Q87.40] 12/08/2021 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/2021 Chronic fatigue [R53.82] 10/22/1997 GERD (gastroesophageal reflux disease) [K21.9] 08/14/1997 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] 08/14/1997 Palpitations [R00.2] 08/11/2010 Orthostatic hypotension [I95.1] 02/19/2013 POTS (postural orthostatic tachycardia syndrome*08/14/1997 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 [Z7*02/23/2022 Other chronic pain [G89.29] 05/07/2022 Encounter Status:Closed by ANA KING on 12/30/24 [facility] OPERATIVE NOon 12-29-2024 OPERATIVE NO HNO ID: [id number] Author: VINI MCDONALD MD Service: Pain Management Author Type: Anesthesiologist Type: Operative Report Filed: 12/29/2024 15:59 Note Text: Summary: TPI PATIENT: Capri Aguilar SURGEON: Primary: Vini Mcdonald MD : 1975 DATE OF SURGERY: December 29, 2024 PRE-OP Diagnosis: Myofascial pain syndrome [M79.18] Fibromyalgia [M79.7] POST-OP Diagnosis: Same Procedure: Procedure(s): INJECTION TRIGGER POINT THREE OR MORE MUSCLES (neck/upper back) Anesthesia Type: Local The following procedure was performed in the office today: Trigger Point Injection(s): () -Informed consent was obtained and all patient questions were answered. After discussing the risks, benefits, prognosis, and alternatives to the procedure, the patient expressed understanding and wished to proceed. UNIVERSAL PROTOCOL / SAFETY CHECKLIST Procedure to be Performed: Trigger point injections Sign In: A Moment of CARE was completed. Appropriate PPE (Personal Protective Equipment) worn by all providers involved with the procedure. Special equipment not required. Patient/Surrogate Stated/Verified: Patient name, Date of , Relevant allergies, and The intended procedure Time Out: Relevant labs, photos, and/or imaging studies have been reviewed. Intended patient and procedure match the source document(s) (e.g. consent, HANDP, associated studies [imaging, pathology]) match the intended patient and procedure. Consent obtained and matches the intended procedure. Yes. Correct side/site has been marked and visible. Medications required for this procedure are verified. Fire risk assessed and is not applicable. Implants: are not applicable. Sign Out: Specimens not collected. All instruments, equipment, possible retained foreign bodies are accounted for. Yes. The post-procedure plan of care has been communicated to the patient or surrogate. -Procedure: The trigger points injections were performed today in the office with aseptic technique. The patient tolerated the procedure well and was discharged after an appropriate period of observation. Trigger points injected (#): 33 Muscle groups: Bilateral cervical paraspinous muscles, bilateral thoracic paraspinous muscles, bilateral trapezius, bilateral rhomboids Injectate: total of 14 mL of 0.25% bupivacaine; distributed ~equally at each site. [facility] Derian 12-18-2024 ARTHUR Telephone ([facility]) CAPRI AGUILAR ([id number]) 1975 F Date Time Provider Department 12/18/24 ERIKA CONWAY During your visit today, we recorded the following information about you: Sharyn Page MA 12/18/2024 11:04 AM Signed Items addressed in this encounter: Telephone Encounter LVM to schedule appt 01/05-01/08 with Erika Conway NP Pain at a 245pm slot Able to close encounter. Sharyn Page MA December 18, 2024 11:03 AM 11:03 AM Allergies As of Date: 12/18/2024 Noted Allergy Reaction CEPHALEXIN 08/11/2010 16 - Unknown MORPHINE 08/14/2012 4 - Hives PERFUME 08/12/2023 4 - Hives PERFUMES 08/14/2012 16 - Unknown ADHESIVE 09/10/2002 Date Reviewed: 11/05/2024 Reviewed by: Kimberli Freedman RN - Fully Assessed Reason for Visit: Other [1320] Cmt: LVM to schedule appt with pain mgt Prescriptions as of 12/18/2024 - oxyCODONE concentrate (ROXICODONE) 20 mg/mL concentrated solution Take 0.5-1 mL by mouth every 4 hours as needed for pain for up to 30 days. Continue working on decreasing your dose by 0.5 mL at a time as tolerated. Patient should start on December 21, 2024. - modafinil (PROVIGIL) 100 mg tablet Take 1 tablet by mouth once daily for 30 days. - ipratropium bromide (ATROVENT) 42 mcg (0.06 %) nasal spray SPRAY 2 SPRAYS INTO EACH NOSTRIL TWICE A DAY - ondansetron (ZOFRAN) 8 mg tablet ondansetron HCl 8 mg tablet TAKE 1 TABLET BY MOUTH THREE TIMES A DAY - megestrol (MEGACE) 400 mg/10 mL (40 mg/mL) suspension megestrol 400 mg/10 mL (40 mg/mL) oral suspension TAKE 2 ML TWICE A DAY BY ORAL ROUTE FOR 90 DAYS. - ondansetron orally disintegrating (ZOFRAN ODT) 8 mg disintegrating tablet - montelukast 10 mg tablet Take 10 mg by mouth daily at bedtime. Take one(1) tablet daily. 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] 02/07/2004 Migraine variant [G43.809] 03/13/2005 Other acne [L70.8] 07/02/2007 10/14/2012 Contact dermatitis and other eczema, due to uns*07/02/2007 10/14/2012 Contact dermatitis and other eczema due to othe*07/02/2007 10/14/2012 Seborrheic dermatitis, unspecified [L21.9] 07/02/2007 10/14/2012 XEROSIS///SEBACEOUS GLAND DIS NEC [L73.8] 07/02/2007 10/14/2012 Unspecified pruritic disorder [L29.9] 07/02/2007 10/14/2012 URTICARIA NOS [L50.9] 07/02/2007 DERMATOGRAPHIC URTICARIA [L50.3] 07/02/2007 IDIOPATHIC URTICARIA [L50.1] 08/09/2008 Other chronic dermatitis due to solar radiation*08/09/2008 10/14/2012 DYSHIDROSIS [L30.1] 08/09/2008 Pyoderma, unspecified [L08.0] 08/09/2008 10/14/2012 Pruritus [L29.9] 11/17/2009 Dermographism [L50.3] 11/17/2009 Acne Vulgaris: Grade III [L70.0] 07/25/2012 Xerosis cutis [L85.3] 07/25/2012 Eczematous dermatitis [L30.9] 07/25/2012 Atopic eczema [L20.9] 07/25/2012 Other atopic dermatitis and related conditions *07/25/2012 Hand eczema [L30.9] 07/25/2012 Melanocytic nevus of upper extremity [D22.60] 10/14/2012 Primary focal hyperhidrosis [L74.519] 10/14/2012 Milia [L72.0] 05/31/2013 Telangiectasias [I78.1] 05/31/2013 Capillary angioma [I78.1] 05/31/2013 Atypical nevus of L upper arm [D22.60] 12/02/2013 Milial cyst [L72.0] 12/02/2013 Contact dermatitis and other eczema, due to uns*12/02/2013 Seborrheic dermatitis, unspecified [L21.9] 12/02/2013 Unspecified pruritic disorder [L29.9] 12/02/2013 Contact dermatitis and other eczema due to othe*12/02/2013 Pyoderma, unspecified [L08.0] 12/02/2013 Actinic skin damage [L57.8] 12/02/2013 Solar lentigo [L81.4] 12/02/2013 Open wound(s) (multiple) of unspecified site(s)*02/02/2014 Abnormal mammogram [R92.8] 02/23/2014 Chronic pain syndrome [G89.4] 12/08/2021 Myofascial pain syndrome [M79.18] 12/08/2021 Fibromyalgia [M79.7] 12/08/2021 Intractable chronic migraine without aura and w*12/08/2021 Marfan's syndrome [Q87.40] 12/08/2021 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/2021 Chronic fatigue [R53.82] 10/22/1997 GERD (gastroesophageal reflux disease) [K21.9] 08/14/1997 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] 08/14/1997 Palpitations [R00.2] 08/11/2010 Orthostatic hypotension [I95.1] 02/19/2013 POTS (postural orthostatic tachycardia syndrome*08/14/1997 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 Please advise. Thanks, Ana King December 09, 2024 3:14 PM Erika Conway PA-C 12/09/2024 3:32 PM Signed All three orders are in and should be fine to be scheduled on those dates if the openings are available. Allergies As of Date: 12/09/2024 Noted Allergy Reaction CEPHALEXIN 08/11/2010 16 - Unknown MORPHINE 08/14/2012 4 - Hives PERFUME 08/12/2023 4 - Hives PERFUMES 08/14/2012 16 - Unknown ADHESIVE 09/10/2002 Date Reviewed: 11/05/2024 Reviewed by: Kimberli Freedman, RN - Fully Assessed Reason for Visit: Requesting procedures [Other] Primary Visit Diagnosis:Myofascial pain syndrome [M79.18] Other Visit Diagnoses:Fibromyalg ia [M79.7] Migraine, unspecified, without mention of intractable migraine without mention of status migrainosus [G43.909] Migraine without aura and without status migrainosus, not intractable [G43.009] 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 [G43.711] Order(s):SURGICAL REQUEST - ELECTIVE (01/2020) [[id number]] Order #: [id number]: 1 SURGICAL REQUEST - ELECTIVE (01/2020) [[id number]] Order #: [id number]: 1 SURGICAL REQUEST - ELECTIVE (01/2020) [[id number]] Order #: [id number]: 1 Prescriptions as of 12/09/2024 - oxyCODONE concentrate (ROXICODONE) 20 mg/mL concentrated solution Take 0.5-1 mL by mouth every 4 hours as needed for pain for up to 30 days. Continue working on decreasing your dose by 0.5 mL at a time as tolerated. - modafinil (PROVIGIL) 100 mg tablet Take 1 tablet by mouth once daily for 30 days. - ipratropium bromide (ATROVENT) 42 mcg (0.06 %) nasal spray SPRAY 2 SPRAYS INTO EACH NOSTRIL TWICE A DAY - ondansetron (ZOFRAN) 8 mg tablet ondansetron HCl 8 mg tablet TAKE 1 TABLET BY MOUTH THREE TIMES A DAY - megestrol (MEGACE) 400 mg/10 mL (40 mg/mL) suspension megestrol 400 mg/10 mL (40 mg/mL) oral suspension TAKE 2 ML TWICE A DAY BY ORAL ROUTE FOR 90 DAYS. - ondansetron orally disintegrating (ZOFRAN ODT) 8 mg disintegrating tablet - montelukast 10 mg tablet Take 10 mg by mouth daily at bedtime. Take one(1) tablet daily. Problem List As Of Date 12/09/2024 Noted Resolved ASA CLASS III [1003] 02/09/2003 Ecidhcy-Zlkxo-Stsdk disease [G60.0] 02/07/2004 IDIO PERIPH NEURPTHY NEC [G60.8] 02/07/2004 Migraine variant [G43.809] 03/13/2005 Other acne [L70.8] 07/02/2007 10/14/2012 Contact dermatitis and other eczema, due to uns*07/02/2007 10/14/2012 Contact dermatitis and other eczema due to othe*07/02/2007 10/14/2012 Seborrheic dermatitis, unspecified [L21.9] 07/02/2007 10/14/2012 XEROSIS///SEBACEOUS GLAND DIS NEC [L73.8] 07/02/2007 10/14/2012 Unspecified pruritic disorder [L29.9] 07/02/2007 10/14/2012 URTICARIA NOS [L50.9] 07/02/2007 DERMATOGRAPHIC URTICARIA [L50.3] 07/02/2007 IDIOPATHIC URTICARIA [L50.1] 08/09/2008 Other chronic dermatitis due to solar radiation*08/09/2008 10/14/2012 DYSHIDROSIS [L30.1] 08/09/2008 Pyoderma, unspecified [L08.0] 08/09/2008 10/14/2012 Pruritus [L29.9] 11/17/2009 Dermographism [L50.3] 11/17/2009 Acne Vulgaris: Grade III [L70.0] 07/25/2012 Xerosis cutis [L85.3] 07/25/2012 Eczematous dermatitis [L30.9] 07/25/2012 Atopic eczema [L20.9] 07/25/2012 Other atopic dermatitis and related conditions *07/25/2012 Hand eczema [L30.9] 07/25/2012 Melanocytic nevus of upper extremity [D22.60] 10/14/2012 Primary focal hyperhidrosis [L74.519] 10/14/2012 Milia [L72.0] 05/31/2013 Telangiectasias [I78.1] 05/31/2013 Capillary angioma [I78.1] 05/31/2013 Atypical nevus of L upper arm [D22.60] 12/02/2013 Milial cyst [L72.0] 12/02/2013 Contact dermatitis and other eczema, due to uns*12/02/2013 Seborrheic dermatitis, unspecified [L21.9] 12/02/2013 Unspecified pruritic disorder [L29.9] 12/02/2013 Contact dermatitis and other eczema due to othe*12/02/2013 Pyoderma, unspecified [L08.0] 12/02/2013 Actinic skin damage [L57.8] 12/02/2013 Solar lentigo [L81.4] 12/02/2013 Open wound(s) (multiple) of unspecified site(s)*02/02/2014 Abnormal mammogram [R92.8] 02/23/2014 Chronic pain syndrome [G89.4] 12/08/2021 Myofascial pain syndrome [M79.18] 12/08/2021 Fibromyalgia [M79.7] 12/08/2021 Intractable chronic migraine without aura and w*12/08/2021 Marfan's syndrome [Q87.40] 12/08/2021 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 [facility] CNPN Telephone ([facility]) CAPRI AGUILAR ([id number]) 1975 F Date Time Provider Department 12/09/24 ERIKA CONWAY During your visit today, we recorded the following information about you: Allergies As of Date: 12/09/2024 Noted Allergy Reaction CEPHALEXIN 08/11/2010 16 - Unknown MORPHINE 08/14/2012 4 - Hives PERFUME 08/12/2023 4 - Hives PERFUMES 08/14/2012 16 - Unknown ADHESIVE 09/10/2002 Date Reviewed: 11/05/2024 Reviewed by: Kimberli Freedman, RN - Fully Assessed Prescriptions as of 12/09/2024 - oxyCODONE concentrate (ROXICODONE) 20 mg/mL concentrated solution Take 0.5-1 mL by mouth every 4 hours as needed for pain for up to 30 days. Continue working on decreasing your dose by 0.5 mL at a time as tolerated. - modafinil (PROVIGIL) 100 mg tablet Take 1 tablet by mouth once daily for 30 days. - ipratropium bromide (ATROVENT) 42 mcg (0.06 %) nasal spray SPRAY 2 SPRAYS INTO EACH NOSTRIL TWICE A DAY - ondansetron (ZOFRAN) 8 mg tablet ondansetron HCl 8 mg tablet TAKE 1 TABLET BY MOUTH THREE TIMES A DAY - megestrol (MEGACE) 400 mg/10 mL (40 mg/mL) suspension megestrol 400 mg/10 mL (40 mg/mL) oral suspension TAKE 2 ML TWICE A DAY BY ORAL ROUTE FOR 90 DAYS. - ondansetron orally disintegrating (ZOFRAN ODT) 8 mg disintegrating tablet - montelukast 10 mg tablet Take 10 mg by mouth daily at bedtime. Take one(1) tablet daily. Problem List As Of Date 12/09/2024 Noted Resolved ASA CLASS III [1003] 02/09/2003 Fimowgk-Spuqx-Rztsc disease [G60.0] 02/07/2004 IDIO PERIPH NEURPTHY NEC [G60.8] 02/07/2004 Migraine variant [G43.809] 03/13/2005 Other acne [L70.8] 07/02/2007 10/14/2012 Contact dermatitis and other eczema, due to uns*07/02/2007 10/14/2012 Contact dermatitis and other eczema due to othe*07/02/2007 10/14/2012 Seborrheic dermatitis, unspecified [L21.9] 07/02/2007 10/14/2012 XEROSIS///SEBACEOUS GLAND DIS NEC [L73.8] 07/02/2007 10/14/2012 Unspecified pruritic disorder [L29.9] 07/02/2007 10/14/2012 URTICARIA NOS [L50.9] 07/02/2007 DERMATOGRAPHIC URTICARIA [L50.3] 07/02/2007 IDIOPATHIC URTICARIA [L50.1] 08/09/2008 Other chronic dermatitis due to solar radiation*08/09/2008 10/14/2012 DYSHIDROSIS [L30.1] 08/09/2008 Pyoderma, unspecified [L08.0] 08/09/2008 10/14/2012 Pruritus [L29.9] 11/17/2009 Dermographism [L50.3] 11/17/2009 Acne Vulgaris: Grade III [L70.0] 07/25/2012 Xerosis cutis [L85.3] 07/25/2012 Eczematous dermatitis [L30.9] 07/25/2012 Atopic eczema [L20.9] 07/25/2012 Other atopic dermatitis and related conditions *07/25/2012 Hand eczema [L30.9] 07/25/2012 Melanocytic nevus of upper extremity [D22.60] 10/14/2012 Primary focal hyperhidrosis [L74.519] 10/14/2012 Milia [L72.0] 05/31/2013 Telangiectasias [I78.1] 05/31/2013 Capillary angioma [I78.1] 05/31/2013 Atypical nevus of L upper arm [D22.60] 12/02/2013 Milial cyst [L72.0] 12/02/2013 Contact dermatitis and other eczema, due to uns*12/02/2013 Seborrheic dermatitis, unspecified [L21.9] 12/02/2013 Unspecified pruritic disorder [L29.9] 12/02/2013 Contact dermatitis and other eczema due to othe*12/02/2013 Pyoderma, unspecified [L08.0] 12/02/2013 Actinic skin damage [L57.8] 12/02/2013 Solar lentigo [L81.4] 12/02/2013 Open wound(s) (multiple) of unspecified site(s)*02/02/2014 Abnormal mammogram [R92.8] 02/23/2014 Chronic pain syndrome [G89.4] 12/08/2021 Myofascial pain syndrome [M79.18] 12/08/2021 Fibromyalgia [M79.7] 12/08/2021 Intractable chronic migraine without aura and w*12/08/2021 Marfan's syndrome [Q87.40] 12/08/2021 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/2021 Chronic fatigue [R53.82] 10/22/1997 GERD (gastroesophageal reflux disease) [K21.9] 08/14/1997 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] 08/14/1997 Palpitations [R00.2] 08/11/2010 Orthostatic hypotension [I95.1] 02/19/2013 POTS (postural orthostatic tachycardia syndrome*08/14/1997 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 [Z7*02/23/2022 Other chronic pain [G89.29] 05/07/2022 Encounter Status:Closed by ANA KING on 12/09/24 [facility] OPERATIVE NOon 11-05-2024 OPERATIVE NO HNO ID: [id number] Author: VINI MCDONALD MD Service: Pain Management Author Type: Anesthesiologist Type: Operative Report Filed: 11/05/2024 15:43 Note Text: Summary: TPI PATIENT: Capri Aguilar SURGEON: Primary: Vini Mcdonald MD : 1975 DATE OF SURGERY: November 05, 2024 PRE-OP Diagnosis: Myofascial pain syndrome [M79.18] POST-OP Diagnosis: Same Procedure: Procedure(s): INJECTION TRIGGER POINT THREE OR MORE MUSCLES Anesthesia Type: Local The following procedure was performed in the office today: Trigger Point Injection(s): (38244) -Informed consent was obtained and all patient questions were answered. After discussing the risks, benefits, prognosis, and alternatives to the procedure, the patient expressed understanding and wished to proceed. UNIVERSAL PROTOCOL / SAFETY CHECKLIST Procedure to be Performed: Trigger point injections Sign In: A Moment of CARE was completed. Appropriate PPE (Personal Protective Equipment) worn by all providers involved with the procedure. Special equipment not required. Patient/Surrogate Stated/Verified: Patient name, Date of , Relevant allergies, and The intended procedure Time Out: Relevant labs, photos, and/or imaging studies have been reviewed. Intended patient and procedure match the source document(s) (e.g. consent, HANDP, associated studies [imaging, pathology]) match the intended patient and procedure. Consent obtained and matches the intended procedure. Yes. Correct side/site has been marked and visible. Medications required for this procedure are verified. are not applicable. Fire risk assessed and is not applicable. Implants: are not applicable. Sign Out: Specimens not collected. All instruments, equipment, possible retained foreign bodies are accounted for. Yes. The post-procedure plan of care has been communicated to the patient or surrogate. -Procedure: The trigger points injections were performed today in the office with aseptic technique. The patient tolerated the procedure well and was discharged after an appropriate period of observation. Trigger points injected (#): 27 Muscle groups: Bilateral thoracic paraspinous, bilateral lumbar paraspinous, bilateral gluteus wayne muscles Injectate: total of 10 mL of 0.25% bupivacaine; distributed equally at each site. [facility] OPERATIVE NOon 11-03-2024 OPERATIVE NO HNO ID: [id number] Author: VINI MCDONALD MD Service: Pain Management Author Type: Anesthesiologist Type: Operative Report Filed: 11/03/2024 15:59 Note Text: Summary: TPI PATIENT: Capri Aguilar SURGEON: Primary: Vini Mcdonald MD : 1975 DATE OF SURGERY: November 03, 2024 PRE-OP Diagnosis: Myofascial pain syndrome [M79.18] Fibromyalgia [M79.7] POST-OP Diagnosis: Same Procedure: Procedure(s): INJECTION TRIGGER POINT THREE OR MORE MUSCLES Anesthesia Type: Local The following procedure was performed in the office today: Trigger Point Injection(s): (14087) -Informed consent was obtained and all patient questions were answered. After discussing the risks, benefits, prognosis, and alternatives to the procedure, the patient expressed understanding and wished to proceed. UNIVERSAL PROTOCOL / SAFETY CHECKLIST Procedure to be Performed: Trigger point injections Sign In: A Moment of CARE was completed. Appropriate PPE (Personal Protective Equipment) worn by all providers involved with the procedure. Special equipment not required. Patient/Surrogate Stated/Verified: Patient name, Date of , Relevant allergies, and The intended procedure Time Out: Relevant labs, photos, and/or imaging studies have been reviewed. Intended patient and procedure match the source document(s) (e.g. consent, HANDP, associated studies [imaging, pathology]) match the intended patient and procedure. Consent obtained and matches the intended procedure. Yes. Correct side/site has been marked and visible. Medications required for this procedure are verified. Fire risk assessed and is not applicable. Implants: are not applicable. Sign Out: Specimens not collected. All instruments, equipment, possible retained foreign bodies are accounted for. Yes. The post-procedure plan of care has been communicated to the patient or surrogate. -Procedure: The trigger points injections were performed today in the office with aseptic technique. The patient tolerated the procedure well and was discharged after an appropriate period of observation. Trigger points injected (#): 38 Muscle groups: Bilateral trapezius, bilateral cervical paraspinous, bilateral thoracic paraspinous, bilateral rhomboids, bilateral supraspinatus Injectate: total of 18 mL of 0.25% bupivacaine; distributed equally at each site. [facility] OPERATIVE NOon 10-06-2024 OPERATIVE NO HNO ID: [id number] Author: VINI MCDONALD MD Service: Pain Management Author Type: Anesthesiologist Type: Operative Report Filed: 10/06/2024 16:07 Note Text: Summary: Botox Injections PATIENT: Capri Aguilar SURGEON: Primary: Vini Mcdonald MD : 1975 DATE OF SURGERY: October 06, 2024 PRE-OP Diagnosis: Migraine, unspecified, without mention of intractable migraine without mention of status migrainosus [G43.909] POST-OP Diagnosis: Same Procedure: Procedure(s): CHEMODENERVATION OF MUSCLE(S) INNERVATED BY FACIAL, TRIGEMINAL, CERVICAL SPINAL AND ACCESSORY NERVES, BILATERAL Anesthesia Type: Local The following procedure was performed in the office today: Botox Injection PROCEDURE: Botox injection CPT code: 00331 PREPROCEDURE DIAGNOSIS: Migraine headache POSTPROCEDURE DIAGNOSIS: same ANESTHESIA: none PROCEDURE REPORT: The risks and benefits of the procedure were explained to the patient and all questions were answered. The patient gave consent to proceed with the procedure. UNIVERSAL PROTOCOL / SAFETY CHECKLIST Procedure to be Performed: Botox injections Sign In: A Moment of CARE was completed. Appropriate PPE (Personal Protective Equipment) worn by all providers involved with the procedure. Special equipment not required. Patient/Surrogate Stated/Verified: Patient name, Date of , Relevant allergies, and The intended procedure Time Out: Relevant labs, photos, and/or imaging studies have been reviewed. Intended patient and procedure match the source document(s) (e.g. consent, HANDP, associated studies [imaging, pathology]) match the intended patient and procedure. Consent obtained and matches the intended procedure. Yes. Correct side/site is not applicable. Medications required for this procedure are verified. are not applicable. Fire risk assessed and is not applicable. Implants: are not applicable. Sign Out: Specimens not collected. All instruments, equipment, possible retained foreign bodies are accounted for. Yes. The post-procedure plan of care has been communicated to the patient or surrogate. The skin was prepped with alcohol. BOTOX Lot Number: [id number] BOTOX was reconstituted to a concentration of 5 U/0.1mL. The following injections were made using a 30G needle: 5 Botox units to the procerus muscle 5 Botox units to the right senior hydrogeologist supercilii muscle 5 Botox units to the left senior hydrogeologist supercilii muscle 30 Botox units to the frontalis muscle 30 Botox units to the right temporalis muscle 30 Botox units to the left temporalis muscle 15 Botox units to the right occipitalis muscle 15 Botox units to the left occipitalis muscle 10 Botox units to the right cervical paraspinals 10 Botox units to the left cervical paraspinals The needle was withdrawn intact. The patient tolerated the procedure well with no complications noted. [facility] CNOVon 09-18-2024 CNOV Office Visit (JENNIE) CAPRI AGUILAR ([id number]) 1975 F Date Time Provider Department 09/18/24 1:30 PM ERIKA CONWAY During your visit today, we recorded the following information about you: Pulse Respiration Blood pressure Weight 110/minute 18/minute 137/88 47.2 kg Antonella Valladares RN 09/18/2024 2:14 PM Signed Oxycodone am Med helps pain Denies side effects Last uds-09/18/24 09/10/24-TPI Erika Conway PA-C 09/18/2024 2:14 PM Signed This note was created using Zingfin. Subjective Capri Aguilar is a 48 year old female. The patient primarily being seen for generalized body pain and migraines Patient was last seen on: 06/23/24 At that time, the treatment plan was: see notes Current Meds: oxycodone - am Efficacy: helps Side effects: denies TENS unit: How often used: Benefit: Physical Therapy: Last UDS: 09/18/24 Last injection: 09/10/24 - trigger point injections OARRS reviewed At the present time, the patient reports benefit with her present analgesic therapy. She denies any adverse effects. Since her previous visit, she denies any hospitalizations or ER visits. She states that the recent trigger point injections helped relieve 85% of her pain and allowed her to be more active. She is scheduled for her botox injections on 10/06/24. The set done 07/07/24 helped decrease the frequency and severity of her migraines by 90%. She is currently only having about one migraine a month. As long as she continues to receive the migraines every 3 months she is able to keep her migraines controlled with minimal interference with her ADLs and lower medication requirements to be able to function on a daily basis. 09/10/2024 09/17/2024 INTAKE PAIN ASSESSMENT Are you having pain associated with your visit today? Yes, Provider notified Pain Level 7 6 Pain Location Back-Lower Generalized Description Aching;Sore Aching;Numbness;Pres sure;Radiating;Sore; Stiffness;Tenderness ;Tightness Duration Amount of Time 21 Duration Units Years Frequency Continuous Intervention/Comfort measure Medication;Other: See comment Comments Trigger point injections Pain Assessment Reassessment 06/23/2024 09/18/2024 Pain Disability Index Family/Home Responsibilities: This category includes chores or duties performed around the house (e.g. yard work), errands or favors for other family members (e.g. driving the children to school) 0 No Disability 0 No Disability Recreation: This category includes hobbies, sports, and other similar leisure time activities 0 No disability 0 No disability Social Activity: This category refers to activities which involve participation with friends and acquaintances, other than family members. It includes parties, theater, concerts, dinning out, and other social functions 0 No disability 0 No disability Occupation: This category refers to activities that are a part of or directly related to ones' job. This includes non-paying jobs as well, such as that of a housewife or volunteer worker 0 No disability 0 No disability Sexual Behavior: This category refers to the frequency and quality of one's sex life 0 No disability 0 No disability Self Care: This category includes activities which involve personal maintenance and independent daily living (e.g. 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) Murmur Muscular dystrophies and other myopathies Other acne Persistent vomiting PAST SURGICAL HISTORY Procedure Laterality Date EAR TUBES HX ESOPHAGOGASTRODUODEN OSCOPY TRANSORAL DIAGNOSTIC 01/04/03 EGD EXTRACTION, ERUPTED TOOTH OR EXPOSED ROOT (ELEVATION AND/OR FORCEPS REMOVAL) 99 WISODOM TEETH FOOT SURGERY HX HAMMERTOE REVISION, ONE TOE 95, 97 Bialteral/ hammertoe AND arches KNEE SURGERY HX MYRINGOTOMY ASPIRAND/EUSTACHIAN TUBE NFLTJ ANES 05/20 Myringotomy/tubes PAST SURGICAL HISTORY OF , , , FOOT, KNEE,ANKLES PAST SURGICAL HISTORY OF 2002 MUSCLE BIOPSY PAST SURGICAL HISTORY OF 1997 CARDIAC SURGERY TONSILLECTOMY AND ADENOIDECTOMY TONSILLECTOMY PRIMARY/SECONDARY Tonsillectomy Social History Tobacco Use Smoking status: Never Smokeless tobacco: Never Substance Use Topics Alcohol use: Yes Drug use: No Review of Systems Constitutional (more content not included)... [facility] OPERATIVE NOon 09-10-2024 OPERATIVE NO HNO ID: [id number] Author: VINI MCDONALD MD Service: Pain Management Author Type: Anesthesiologist Type: Operative Report Filed: 09/10/2024 15:42 Note Text: Summary: TPI PATIENT: Capri Aguilar SURGEON: Primary: Vini Mcdonald MD : 1975 DATE OF SURGERY: September 10, 2024 PRE-OP Diagnosis: Myofascial pain syndrome [M79.18] POST-OP Diagnosis: Same Procedure: Procedure(s): INJECTION TRIGGER POINT THREE OR MORE MUSCLES (lower back) Anesthesia Type: Local The following procedure was performed in the office today: Trigger Point Injection(s): (39831) -Informed consent was obtained and all patient questions were answered. After discussing the risks, benefits, prognosis, and alternatives to the procedure, the patient expressed understanding and wished to proceed. UNIVERSAL PROTOCOL / SAFETY CHECKLIST Procedure to be Performed: Trigger Point Injections Sign In: A Moment of CARE was completed. Appropriate PPE (Personal Protective Equipment) worn by all providers involved with the procedure. Special equipment not required. Patient/Surrogate Stated/Verified: Patient name, Date of , Relevant allergies, and The intended procedure Time Out: Relevant labs, photos, and/or imaging studies are not applicable. Intended patient and procedure match the source document(s) (e.g. consent, HANDP, associated studies [imaging, pathology]) match the intended patient and procedure. Consent obtained and matches the intended procedure. Yes. Correct side/site has been marked and visible. Medications required for this procedure are verified. Fire risk assessed and is not applicable. Implants: are not applicable. Sign Out: Specimens not collected. All instruments, equipment, possible retained foreign bodies are accounted for. Yes. The post-procedure plan of care has been communicated to the patient or surrogate. -Procedure: The trigger points injections were performed today in the office with aseptic technique. The patient tolerated the procedure well and was discharged after an appropriate period of observation. Trigger points injected (#): 29 Muscle groups: Bilateral lumbar and thoracic paraspinous muscles, bilateral gluteus wayne Injectate: total of 10 mL of 0.25% bupivacaine; distributed equally at each site. [facility] OPERATIVE NOon 09-08-2024 OPERATIVE NO HNO ID: [id number] Author: VINI MCDONALD MD Service: Pain Management Author Type: Anesthesiologist Type: Operative Report Filed: 09/08/2024 16:26 Note Text: Summary: TPI PATIENT: Capri Aguilar SURGEON: Primary: Vini Mcdonald MD : 1975 DATE OF SURGERY: September 08, 2024 PRE-OP Diagnosis: Myofascial pain syndrome [M79.18] POST-OP Diagnosis: Same Procedure: Procedure(s): INJECTION TRIGGER POINT THREE OR MORE MUSCLES (neck/upper back) Anesthesia Type: Local The following procedure was performed in the office today: Trigger Point Injection(s): () -Informed consent was obtained and all patient questions were answered. After discussing the risks, benefits, prognosis, and alternatives to the procedure, the patient expressed understanding and wished to proceed. UNIVERSAL PROTOCOL / SAFETY CHECKLIST Procedure to be Performed: Trigger point injections Sign In: A Moment of CARE was completed. Appropriate PPE (Personal Protective Equipment) worn by all providers involved with the procedure. Special equipment not required. Patient/Surrogate Stated/Verified: Patient name, Date of , Relevant allergies, and The intended procedure Time Out: Relevant labs, photos, and/or imaging studies are not applicable. Intended patient and procedure match the source document(s) (e.g. consent, HANDP, associated studies [imaging, pathology]) match the intended patient and procedure. Consent obtained and matches the intended procedure. Yes. Correct side/site has been marked and visible. Medications required for this procedure are verified. Fire risk assessed and is not applicable. Implants: are not applicable. Sign Out: Specimens not collected. All instruments, equipment, possible retained foreign bodies are accounted for. Yes. The post-procedure plan of care has been communicated to the patient or surrogate. -Procedure: The trigger points injections were performed today in the office with aseptic technique. The patient tolerated the procedure well and was discharged after an appropriate period of observation. Trigger points injected (#): 34 Muscle groups: Bilateral cervical paraspinous, bilateral trapezius, bilateral thoracic paraspinous, bilateral rhomboids, bilateral supraspinatus Injectate: total of 17 mL of 0.25% bupivacaine; distributed equally at each site. [address] 08-06-2024 36 Needs appt Normal [facility] OPERATIVE NOon 07-16-2024 OPERATIVE NO HNO ID: [id number] Author: VINI MCDONALD MD Service: Pain Management Author Type: Anesthesiologist Type: Operative Report Filed: 07/16/2024 15:29 Note Text: Summary: TPI PATIENT: Capri Aguilar SURGEON: Primary: Vini Mcdonald MD : 1975 DATE OF SURGERY: July 16, 2024 PRE-OP Diagnosis: Myofascial pain syndrome [M79.18] POST-OP Diagnosis: Same Procedure: Procedure(s): INJECTION TRIGGER POINT THREE OR MORE MUSCLES (Lower) Anesthesia Type: Local The following procedure was performed in the office today: Trigger Point Injection(s): (21851) -Informed consent was obtained and all patient questions were answered. After discussing the risks, benefits, prognosis, and alternatives to the procedure, the patient expressed understanding and wished to proceed. A pre-procedural pause was conducted to verify: correct patient identity, procedure to be performed and as applicable, correct side and site, correct patient position, and any special requirements. -Procedure: The trigger points injections were performed today in the office with aseptic technique. The patient tolerated the procedure well and was discharged after an appropriate period of observation. Trigger points injected (#): 27 Muscle groups: Bilateral lumbar paraspinous, bilateral thoracic paraspinous, bilateral gluteus wayne Injectate: total of 10 mL of 0.25% bupivacaine; distributed equally at each site. [facility] OPERATIVE NOon 07-14-2024 OPERATIVE NO HNO ID: [id number] Author: VINI MCDONALD MD Service: Pain Management Author Type: Anesthesiologist Type: Operative Report Filed: 07/14/2024 15:18 Note Text: Summary: TPI PATIENT: Capri Lynch Aguilar SURGEON: Primary: Vini Mcdonald MD : 1975 DATE OF SURGERY: July 14, 2024 PRE-OP Diagnosis: Myofascial pain syndrome [M79.18] POST-OP Diagnosis: Same Procedure: Procedure(s): INJECTION TRIGGER POINT THREE OR MORE MUSCLES (upper back) Anesthesia Type: Local The following procedure was performed in the office today: Trigger Point Injection(s): (94678) -Informed consent was obtained and all patient questions were answered. After discussing the risks, benefits, prognosis, and alternatives to the procedure, the patient expressed understanding and wished to proceed. A pre-procedural pause was conducted to verify: correct patient identity, procedure to be performed and as applicable, correct side and site, correct patient position, and any special requirements. -Procedure: The trigger points injections were performed today in the office with aseptic technique. The patient tolerated the procedure well and was discharged after an appropriate period of observation. Trigger points injected (#): 34 Muscle groups: Bilateral cervicals paraspinous, splenis capitis, trapezius, thoracic paraspinous, rhomboids Injectate: total of 18 mL of 0.25% bupivacaine; distributed equally at each site. [facility] OPERATIVE NOon 07-07-2024 OPERATIVE NO HNO ID: [id number] Author: VINI MCDONALD MD Service: Pain Management Author Type: Anesthesiologist Type: Operative Report Filed: 07/07/2024 16:55 Note Text: Summary: Botox Injections PATIENT: Capri Lynch Aguilar SURGEON: Primary: Vini Mcdonald MD : 1975 DATE OF SURGERY: July 07, 2024 PRE-OP Diagnosis: Migraine, unspecified, without mention of intractable migraine without mention of status migrainosus [G43.909] POST-OP Diagnosis: Same Procedure: Procedure(s): CHEMODENERVATION OF MUSCLE (S), MUSCLE (S) INNERVATED BY FACIAL NERVE Anesthesia Type: Local The following procedure was performed in the office today: Botox Injection PROCEDURE: Botox injection CPT code: 46657 PREPROCEDURE DIAGNOSIS: Migraine headache POSTPROCEDURE DIAGNOSIS: same ANESTHESIA: none PROCEDURE REPORT: The risks and benefits of the procedure were explained to the patient and all questions were answered. The patient gave consent to proceed with the procedure. The skin was prepped with alcohol. BOTOX Lot Number: [id number] BOTOX was reconstituted to a concentration of 5 U/0.1mL. The following injections were made using a 30G needle: 5 Botox units to the procerus muscle 5 Botox units to the right senior hydrogeologist supercilii muscle 5 Botox units to the left senior hydrogeologist supercilii muscle 20 Botox units to the frontalis muscle 25 Botox units to the right temporalis muscle 25 Botox units to the left temporalis muscle 20 Botox units to the right occipitalis muscle 20 Botox units to the left occipitalis muscle 15 Botox units to the right cervical paraspinals 15 Botox units to the left cervical paraspinals The needle was withdrawn intact. The patient tolerated the procedure well with no complications noted. [facility] CNOVon 06-23-2024 CNOV Office Visit (JENNIE) LAURENCAPRI Lynch ([id number]) 1975 F Date Time Provider Department 06/23/24 1:00 PM ERIKA CONWAY During your visit today, we recorded the following information about you: Pulse Respiration Blood pressure 90/minute 16/minute 119/74 Erika Conway PA-C 06/23/2024 1:47 PM Addendum This note was created using Zingfin. Subjective Capri Aguilar is a 48 year old female. The patient primarily being seen for generalized pain and migraines Patient was last seen on: 03/25/24 At that time, the treatment plan was: see notes Current Meds: oxycodone - 11 am Efficacy: help Side effects: denies TENS unit: didn't help How often used: Benefit: Physical Therapy: Last UDS: 03/25/24 Last injection: 04/02/24 - BOTOX, 05/12/24 (neck/upper back) and 05/19/24 (low back) TPI OARRS reviewed At the present time, the patient reports benefit with her present analgesic therapy. She denies any adverse effects. Since her previous visit, she denies any hospitalizations or ER visits. She states that the BOTOX injections helped decrease her migraines by 85%. She may have 1 a week or less now. She has her next set of BOTOX injections scheduled for 07/07/24. As stated at a previous office visit, by making sure she keeps them scheduled on a 3 month interval, her migraines stay adequately maintained. If she waits longer than that, then the migraines increase to up to 2-3 times a week requiring increased medication use and possible trips to the ER for relief if she is not able to get them resolved with the medications. The trigger point injections helped relieve 75% of her pain and have allowed her to be more active. She would like to get her next set scheduled 05/19/2024 06/22/2024 INTAKE PAIN ASSESSMENT Are you having pain associated with your visit today? 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 Other acne Persistent vomiting PAST SURGICAL HISTORY Procedure Laterality Date EAR TUBES HX ESOPHAGOGASTRODUODEN OSCOPY TRANSORAL DIAGNOSTIC 01/04/03 EGD EXTRACTION, ERUPTED TOOTH OR EXPOSED ROOT (ELEVATION AND/OR FORCEPS REMOVAL) 99 WISODOM TEETH FOOT SURGERY HX HAMMERTOE REVISION, ONE TOE 95, 97 Bialteral/ hammertoe AND arches KNEE SURGERY HX MYRINGOTOMY ASPIRAND/EUSTACHIAN TUBE NFLTJ ANES 05/20 Myringotomy/tubes PAST SURGICAL HISTORY OF , 04, 03, 01 FOOT, KNEE,ANKLES PAST SURGICAL HISTORY OF 2002 MUSCLE BIOPSY PAST SURGICAL HISTORY OF 1997 CARDIAC SURGERY TONSILLECTOMY AND ADENOIDECTOMY TONSILLECTOMY PRIMARY/SECONDARY Tonsillectomy Social History Tobacco Use Smoking status: Never Smokeless tobacco: Never Substance Use Topics Alcohol use: Yes Drug use: No Review of Systems Constitutional: Negative for fever and unexpected weight change. Musculoskeletal: + neck pain, back pain, numbness, tingling, muscle cramps/weakness, stiffness, arthritis, leg pain at night, and leg pain with exertion. Neurological: Positive for headaches. Objective BP 119/74 (BP Site: Left Arm, BP Position: Sitting) Pulse 90 Resp 16 LMP (LMP Unknown) SpO2 100% Physical Exam Vitals and nursing note reviewed. Constitutional: Appearance: Normal appearance. She is well-developed, well-groomed and normal weight. HENT: Head: Normocephalic and atraumatic. Right Ear: Hearing normal. Left Ear: Hearing normal. Eyes: Conjunctiva/sclera: Conjunctivae normal. Musculoskeletal: Comments: Patient walks with a normal gait. There is tenderness noted in the cervical and lumbar region with spasms noted in the trapezius, rhomboid, paraspinal, and latissimus dorsi muscles. The patient has multiple fibromyalgia tender points noted throughout the examination. Strength is 5/5 throughout. Sensation is intact to light touch throughout. SLR is negative. Neurological: Mental Status: She is alert and oriented to person, place, and time. Psychiatric: Attention and Perception: Attention and perception normal. Mood and Affect: Mood and affect normal. Speech: Speech normal. Behavior: Behavior normal. Behavior is cooperative. Thought Content: Thought content (more content not included)... Normal [facility] OPERATIVE NOon 05-19-2024 OPERATIVE NO HNO ID: [id number] Author: VINI MCDONALD MD Service: Pain Management Author Type: Anesthesiologist Type: Operative Report Filed: 05/19/2024 15:42 Note Text: Summary: TPI PATIENT: Capri Aguilar SURGEON: Primary: Vini Mcdonald MD : 1975 DATE OF SURGERY: May 19, 2024 PRE-OP Diagnosis: Myofascial pain syndrome [M79.18] POST-OP Diagnosis: Same Procedure: Procedure(s): INJECTION TRIGGER POINT THREE OR MORE MUSCLES(low back) Anesthesia Type: Local The following procedure was performed in the office today: Trigger Point Injection(s): (02613) -Informed consent was obtained and all patient questions were answered. After discussing the risks, benefits, prognosis, and alternatives to the procedure, the patient expressed understanding and wished to proceed. A pre-procedural pause was conducted to verify: correct patient identity, procedure to be performed and as applicable, correct side and site, correct patient position, and any special requirements. -Procedure: The trigger points injections were performed today in the office with aseptic technique. The patient tolerated the procedure well and was discharged after an appropriate period of observation. Trigger points injected (#): 31 Muscle groups: Bilateral thoracic paraspinous, bilateral trapezius, bilateral cervical paraspinous Injectate: total of 15 mL of 0.25% bupivacaine; distributed equally at each site. [facility] OPERATIVE NOon 05-12-2024 OPERATIVE NO HNO ID: [id number] Author: VINI MCDONALD MD Service: Pain Management Author Type: Anesthesiologist Type: Operative Report Filed: 05/12/2024 15:48 Note Text: Summary: TPI PATIENT: Capri Aguilar SURGEON: Primary: Vini Mcdonald MD : 1975 DATE OF SURGERY: May 12, 2024 PRE-OP Diagnosis: Myofascial pain syndrome [M79.18] POST-OP Diagnosis: Same Procedure: Procedure(s): INJECTION TRIGGER POINT THREE OR MORE MUSCLES (upper back and neck) Anesthesia Type: Local The following procedure was performed in the office today: Trigger Point Injection(s): () -Informed consent was obtained and all patient questions were answered. After discussing the risks, benefits, prognosis, and alternatives to the procedure, the patient expressed understanding and wished to proceed. A pre-procedural pause was conducted to verify: correct patient identity, procedure to be performed and as applicable, correct side and site, correct patient position, and any special requirements. -Procedure: The trigger points injections were performed today in the office with aseptic technique. The patient tolerated the procedure well and was discharged after an appropriate period of observation. Trigger points injected (#): 27 Muscle groups: Bilateral lumbar paraspinous, bilateral thoracic paraspinous, bilateral gluteus wayne, bilateral gluteus minimus Injectate: total of 10 mL of 0.25% bupivacaine; distributed equally at each site. [facility] OPERATIVE NOon 04-02-2024 OPERATIVE NO HNO ID: [id number] Author: VINI MCDONALD MD Service: Pain Management Author Type: Anesthesiologist Type: Operative Report Filed: 04/02/2024 15:56 Note Text: Summary: Botox Injections PATIENT: Capri Cris Schusteron SURGEON: Primary: Vini Mcdonald MD : 1975 DATE OF SURGERY: April 02, 2024 PRE-OP Diagnosis: 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 [G43.711] POST-OP Diagnosis: Same Procedure: Procedure(s): CHEMODENERVATION OF MUSCLE (S), MUSCLE (S) INNERVATED BY FACIAL NERVE Anesthesia Type: Local The following procedure was performed in the office today: Botox Injection PROCEDURE: Botox injection CPT code: 53671 PREPROCEDURE DIAGNOSIS: Migraine headache POSTPROCEDURE DIAGNOSIS: same ANESTHESIA: none PROCEDURE REPORT: The risks and benefits of the procedure were explained to the patient and all questions were answered. The patient gave consent to proceed with the procedure. The skin was prepped with alcohol. BOTOX Lot Number: [id number], [id number] BOTOX was reconstituted to a concentration of 5 U/0.1mL. The following injections were made using a 30G needle: 5 Botox units to the procerus muscle 5 Botox units to the right senior hydrogeologist supercilii muscle 5 Botox units to the left senior hydrogeologist supercilii muscle 20 Botox units to the frontalis muscle 25 Botox units to the right temporalis muscle 25 Botox units to the left temporalis muscle 20 Botox units to the right occipitalis muscle 20 Botox units to the left occipitalis muscle 15 Botox units to the right cervical paraspinals 15 Botox units to the left cervical paraspinals The needle was withdrawn intact. The patient tolerated the procedure well with no complications noted. [facility] 03-25-2024 [facility] Office Visit (JENNIE) CAPRI AGUILAR ([id number]) 1975 F Date Time Provider Department 03/25/24 2:30 PM ERIKA CONWAY During your visit today, we recorded the following information about you: Pulse Respiration Blood pressure Weight 97/minute 18/minute 125/85 47.2 kg Antonella Valladares RN 03/25/2024 2:26 PM Signed Oxycodone 1pm Med helps pain Denies side effects Last uds-03/25/24 03/13/24-Erika Mendez PA-C 03/25/2024 3:16 PM Signed This note was created using [employer]. Subjective Capri Aguilar is a 48 year old female. The patient primarily being seen for generalized pain and migraines Patient was last seen on: 12/18/23 At that time, the treatment plan was: see notes Current Meds: oxycodone - afternoon Efficacy: helps Side effects: denies TENS unit: didn't help How often used: Benefit: Physical Therapy: Last UDS: 03/25/24 Last injection: 03/13/24 OARRS reviewed At the present time, the patient reports benefit with her present analgesic therapy. She denies any adverse effects. Since her previous visit, she denies any hospitalizations or ER visits. She states that the two sets of trigger point injections helped relieve 90% of her muscle pain in her neck/upper back and in the mid/lower back. She has been able to be more active. She is currently scheduled for BOTOX injections 04/02/24. Her last set was 11/14/23 and she states that after she gets the injections her migraines are much less severe and she typically only gets ~1 a month. Because it has been so long since her last set of BOTOX injections she states that her migraines are now happening 2-3 times a week and when she has them they are lasting at least 24 hours and severely interfering with her ADLS. She states she is at about 288 hours this month that she has suffered from her migraines. 03/12/2024 03/24/2024 INTAKE PAIN ASSESSMENT Are you having pain associated with your visit today? Yes, Provider notified Pain Level 5 6 Pain Location Back-Lower Generalized Description Aching;Numbness;Pres sure;Radiating;Sore; Stiffness;Tenderness ;Tightness Duration Amount of Time 12 Duration Units Months Frequency Continuous Intervention/Comfort measure Relaxation;Distracti ons;Positioning;Othe r: See comment Pain Assessment Reassessment HPI PAST MEDICAL HISTORY Diagnosis Date Acute gastritis without mention of hemorrhage CHARCOT Yrvcwqy-Mesbk-risad disease, deafness, and intellectual disability syndrome Eczema Chiquis-Danlos syndrome Fibromyalgia GERD (gastroesophageal reflux disease) Loss of weight 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 Other acne Persistent vomiting PAST SURGICAL HISTORY Procedure Laterality Date EAR TUBES HX ESOPHAGOGASTRODUODEN OSCOPY TRANSORAL DIAGNOSTIC 01/04/03 EGD EXTRACTION, ERUPTED TOOTH OR EXPOSED ROOT (ELEVATION AND/OR FORCEPS REMOVAL) 99 WISODOM TEETH FOOT SURGERY HX HAMMERTOE REVISION, ONE TOE 95, 97 Bialteral/ hammertoe AND arches KNEE SURGERY HX MYRINGOTOMY ASPIRAND/EUSTACHIAN TUBE NFLTJ ANES 05/20 Myringotomy/tubes PAST SURGICAL HISTORY OF , 04, 03, 01 FOOT, KNEE,ANKLES PAST SURGICAL HISTORY OF 2002 MUSCLE BIOPSY PAST SURGICAL HISTORY OF 1997 CARDIAC SURGERY TONSILLECTOMY AND ADENOIDECTOMY TONSILLECTOMY PRIMARY/SECONDARY Tonsillectomy Social History Tobacco Use Smoking status: Never Smokeless tobacco: Never Substance Use Topics Alcohol use: Yes Drug use: No Review of Systems Constitutional: Negative for fever and unexpected weight change. Musculoskeletal: + neck pain, back pain, numbness, tingling, muscle cramps/weakness, stiffness, arthritis, leg pain at night, and leg pain with exertion. Neurological: Positive for headaches. Objective BP 125/85 (BP Site: Left Arm, BP Position: Sitting, BP Cuff Size: Regular Adult) Pulse 97 Resp 18 Wt 47.2 kg (104 lb) LMP (LMP Unknown) SpO2 100% BMI 16.29 kg/m? Physical Exam Vitals and nursing note reviewed. Constitutional: Appearance: Normal appearance. She is well-developed, well-groomed and normal weight. HENT: Head: Normocephalic and atraumatic. Right Ear: Hearing normal. Left Ear: Hearing normal. Eyes: Conjunctiva/sclera: Conjunctivae normal. Musculoskeletal: Comments: Patient walks with a normal gait. There is tenderness noted in the cervical and lumbar region with spasms noted in the trapezius, rhomboid, paraspinal, and latissimus dorsi muscles. The patient has multiple fibromyalgia tender points noted throughout the examination. Strength is 5/5 throughout. Sensation is intact to light touch throughout. SLR is negative. Neurological: Mental Status: She is alert and oriented to person, place, and time. Psychiatr (more content not included)... [facility]MRPAIN[facility] CAPRI AGUILAR ([id number]) 1975 F Date Time Provider Department 03/13/24 VINI MCDONALD During your visit today, we recorded the following information about you: Ana King 03/13/2024 11:[address] Mcdonald, I spoke to Capri and scheduled her Botox. She wanted to schedule her TPI's in May. Please build the cases so she can be added to your schedule. Thanks, Ana King March 13, 2024 11:00 AM Summary: TPI DATE OF SURGERY: March 10, 2024 PRE-OP Diagnosis: Myofascial pain syndrome [M79.18] INJECTION TRIGGER POINT THREE OR MORE MUSCLES (neck/upper back) May 14 at 3:30. DATE OF SURGERY: March 12, 2024 INJECTION TRIGGER POINT THREE OR MORE MUSCLES (mid/lower back x 1 visit) May 19 at 3:30 Vini Mcdonald MD 03/16/2024 6:56 AM Signed Order created for TPI visits x2 Allergies As of Date: 03/13/2024 Noted Allergy Reaction CEPHALEXIN 08/11/2010 16 - Unknown ADHESIVE 08/14/2012 4 - Hives FRAGRANCES 07/23/2012 2 - Rash 4 - Hives MORPHINE 08/14/2012 4 - Hives PERFUMES 08/14/2012 16 - Unknown ADHESIVE 09/10/2002 Date Reviewed: 03/12/2024 Reviewed by: Kimberli Freedman RN - Fully Assessed Reason for Visit: Cases needed for TPI's in May [Other] Primary Visit Diagnosis:Myofascial pain syndrome [M79.18] Order(s):SURGICAL REQUEST - ELECTIVE (01/2020) [5261407] Order #: [id number]: 1 SURGICAL REQUEST - ELECTIVE (01/2020) [[id number]] Order #: [id number]: 1 Prescriptions as of 03/16/2024 - oxyCODONE concentrate (ROXICODONE) 20 mg/mL concentrated solution Take 0.5-1 mL by mouth every 4 hours as needed for pain for up to 25 days. Take 0.5-1mL every 4 hours as needed for pain for up to 25 days - modafinil (PROVIGIL) 100 mg tablet Take 1 tablet by mouth once daily for 30 days. - ipratropium bromide (ATROVENT) 42 mcg (0.06 %) nasal spray SPRAY 2 SPRAYS INTO EACH NOSTRIL TWICE A DAY - ondansetron (ZOFRAN) 8 mg tablet ondansetron HCl 8 mg tablet TAKE 1 TABLET BY MOUTH THREE TIMES A DAY - megestrol (MEGACE) 400 mg/10 mL (40 mg/mL) suspension megestrol 400 mg/10 mL (40 mg/mL) oral suspension TAKE 2 ML TWICE A DAY BY ORAL ROUTE FOR 90 DAYS. - ondansetron orally disintegrating (ZOFRAN ODT) 8 mg disintegrating tablet - montelukast 10 mg tablet Take 10 mg by mouth daily at bedtime. Take one(1) tablet daily. 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] 02/07/2004 Migraine variant [G43.809] 03/13/2005 Other acne [L70.8] 07/02/2007 10/14/2012 Contact dermatitis and other eczema, due to uns*07/02/2007 10/14/2012 Contact dermatitis and other eczema due to othe*07/02/2007 10/14/2012 Seborrheic dermatitis, unspecified [L21.9] 07/02/2007 10/14/2012 XEROSIS///SEBACEOUS GLAND DIS NEC [L73.8] 07/02/2007 10/14/2012 Unspecified pruritic disorder [L29.9] 07/02/2007 10/14/2012 URTICARIA NOS [L50.9] 07/02/2007 DERMATOGRAPHIC URTICARIA [L50.3] 07/02/2007 IDIOPATHIC URTICARIA [L50.1] 08/09/2008 Other chronic dermatitis due to solar radiation*08/09/2008 10/14/2012 DYSHIDROSIS [L30.1] 08/09/2008 Pyoderma, unspecified [L08.0] 08/09/2008 10/14/2012 Pruritus [L29.9] 11/17/2009 Dermographism [L50.3] 11/17/2009 Acne Vulgaris: Grade III [L70.0] 07/25/2012 Xerosis cutis [L85.3] 07/25/2012 Eczematous dermatitis [L30.9] 07/25/2012 Atopic eczema [L20.9] 07/25/2012 Other atopic dermatitis and related conditions *07/25/2012 Hand eczema [L30.9] 07/25/2012 Melanocytic nevus of upper extremity [D22.60] 10/14/2012 Primary focal hyperhidrosis [L74.519] 10/14/2012 Milia [L72.0] 05/31/2013 Telangiectasias [I78.1] 05/31/2013 Capillary angioma [I78.1] 05/31/2013 Atypical nevus of L upper arm [D22.60] 12/02/2013 Milial cyst [L72.0] 12/02/2013 Contact dermatitis and other eczema, due to uns*12/02/2013 Seborrheic dermatitis, unspecified [L21.9] 12/02/2013 Unspecified pruritic disorder [L29.9] 12/02/2013 Contact dermatitis and other eczema due to othe*12/02/2013 Pyoderma, unspecified [L08.0] 12/02/2013 Actinic skin damage [L57.8] 12/02/2013 Solar lentigo [L81.4] 12/02/2013 Open wound(s) (multiple) of unspecified site(s)*02/02/2014 Abnormal mammogram [R92.8] 02/23/2014 Chronic pain syndrome [G89.4] 12/08/2021 Myofascial pain syndrome [M79.18] 12/08/2021 Fibromyalgia [M79.7] 12/08/2021 Intractable chronic migraine without aura and w*12/08/2021 Marfan's syndrome [Q87.40] 12/08/2021 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 [facility] OPERATIVE NOon 03-12-2024 OPERATIVE NO HNO ID: [id number] Author: VINI MCDONALD MD Service: Pain Management Author Type: Anesthesiologist Type: Operative Report Filed: 03/12/2024 15:39 Note Text: Summary: TPI low back PATIENT: Capri Aguilar SURGEON: Primary: Vini Mcdonald MD : 1975 DATE OF SURGERY: March 12, 2024 PRE-OP Diagnosis: Myofascial pain syndrome [M79.18] POST-OP Diagnosis: Same Procedure: Procedure(s): INJECTION TRIGGER POINT THREE OR MORE MUSCLES (mid/lower back x 1 visit) Anesthesia Type: Local The following procedure was performed in the office today: Trigger Point Injection(s): (47308) -Informed consent was obtained and all patient questions were answered. After discussing the risks, benefits, prognosis, and alternatives to the procedure, the patient expressed understanding and wished to proceed. A pre-procedural pause was conducted to verify: correct patient identity, procedure to be performed and as applicable, correct side and site, correct patient position, and any special requirements. -Procedure: The trigger points injections were performed today in the office with aseptic technique. The patient tolerated the procedure well and was discharged after an appropriate period of observation. Trigger points injected (#): 21 Muscle groups: Bilateral thoracic paraspinous, bilateral lumbar paraspinous, bilateral gluteus wayne Injectate: total of 10.5 mL of 0.25% bupivacaine; distributed equally at each site. [facility] OPERATIVE NOon 03-10-2024 OPERATIVE NO HNO ID: [id number] Author: VINI MCDONALD MD Service: Pain Management Author Type: Anesthesiologist Type: Operative Report Filed: 03/10/2024 15:43 Note Text: Summary: TPI PATIENT: Capri Cris Schusteron SURGEON: Primary: Vini Mcdonald MD : 1975 DATE OF SURGERY: March 10, 2024 PRE-OP Diagnosis: Myofascial pain syndrome [M79.18] POST-OP Diagnosis: Same Procedure: Procedure(s): INJECTION TRIGGER POINT THREE OR MORE MUSCLES (neck/upper back) Anesthesia Type: Local The following procedure was performed in the office today: Trigger Point Injection(s): (34539) -Informed consent was obtained and all patient questions were answered. After discussing the risks, benefits, prognosis, and alternatives to the procedure, the patient expressed understanding and wished to proceed. A pre-procedural pause was conducted to verify: correct patient identity, procedure to be performed and as applicable, correct side and site, correct patient position, and any special requirements. -Procedure: The trigger points injections were performed today in the office with aseptic technique. The patient tolerated the procedure well and was discharged after an appropriate period of observation. Trigger points injected (#): 28 Muscle groups: Bilateral splenis capitis, bilateral cervical paraspinous, bilateral trapezius, bilateral thoracic paraspinous Injectate: total of 20 mL of 0.25% bupivacaine; distributed equally at each site. [facility] SCRN MAMM (CAD)W/DAVID BILATo n 02-18-2024 SCRN MAMM (CAD)W/DAVID BILAT [facility] Imaging Services [address] [place] [id number] SCRN MAMM (CAD)W/DAVID BILAT MR#: [id number] Acct: [id number] Name: CAPRI AGUILAR Rep #: [id number] : 1975 F 48 From: Frandy greenberg MD PCP: Dr. Luisa Pemberton MD Status: [facility] Study: SCRN MAMM (CAD)W/DAVID BILAT Date of Exam: 02/08 Exam# [id number] Ordering Dr: Luisa Pemberton MD [id number] MAMMOGRAPHY - BILATERAL SCREENING REASON FOR EXAM: Female, 48 years old. Routine annual screening examination. PERTINENT HISTORY: Grandmothers with breast cancer. TECHNIQUE: Digital bilateral breast david (3D mammographic acquisition) in the CC and MLO projections. 2-D mediolateral oblique (MLO) and craniocaudad (CC) views of both breasts were obtained. CAD: Full Field Digital Mammography with Computer Added Detection was performed. COMPARISON: Comparison is made with prior study dated April 22, 2019 and April 19, 2016. FINDINGS: Breast Composition: The breasts are heterogeneously dense, which may obscure small masses. There are no dominant masses or suspicious calcifications. Stable 7 mm well-defined nodule in the deep inferior portion of the right breast. This was demonstrated to be a small cyst on prior sonogram. Stable small bilateral axillary lymph nodes. No other significant abnormalities are identified. There has been no significant change since the prior study. BI/SCRN MAMM (CAD)W/DAVID BILAT IMPRESSION: Stable bilateral screening mammogram. Yearly follow-up mammogram recommended. (A) ASSESSMENT CATEGORY: BIRADS Category 2: Benign. A letter regarding these results will be sent to the patient by the facility within 30 days. Approximately 10% of breast cancers are not detected by mammography. A normal mammogram should not delay biopsy of a clinically suspicious abnormality. [id number] Electronically Signed: Frandy Hutchinson MD at 14:02 EDT Reading Location ID and State: [address] [place] [address] , Service support , CC: Dr. Luisa Pemberton MD Telecommunications Technician: Signed Normal [facility] PAP I-G CT/NG/T RF HPVon ADEQ Comment Normal . [facility] Comment on above: Order Comment: Speci men Comment: [id number] Comment: No. of containers..01 ThinPrep Vial Result Comment: Sati sfactory for evaluation. No endocervical component is identified. Performed By: #### L 7400.0325 ####[facility] [address] [place], [place], [address] CHLAMY,NUC ACID Negative Normal Negative [facility] Comment on above: Order Comment: Speci men Comment: [id number] Comment: No. of containers..01 ThinPrep Vial Performed By: #### L 7400.0325 ####[facility] [address] [place], [address] COMM . Normal . [facility] Comment on above: Order Comment: Abhishek perez Comment: [id number] Comment: No. of containers..01 ThinPrep Vial Performed By: #### L 7400.0325 ####[facility] [address] [place], [address] COMMENT Comment Normal . [facility] Comment on above: Order Comment: Speci men Comment: [id number] Comment: No. of containers..01 ThinPrep Vial Result Comment: This liquid based ThinPrep(R) pap test was screened with the use of an image guided system. Performed By: #### L 7400.0325 ####[facility] [address] [place], [address] DIAG Comment Normal . [facility] Comment on above: Order Comment: Abhishek men Comment: [id number] Comment: No. of containers..01 ThinPrep Vial Result Comment: NEGA TIVE FOR INTRAEPITHELIAL LESION OR MALIGNANCY. Performed By: #### L 7400.0325 ####[facility] [address] [place], [address] GC BY NUC ACID Negative Normal Negative [facility] Comment on above: Order Comment: Abhishek perez Comment: [id number] Comment: No. of containers..01 ThinPrep Vial Performed By: #### L 7400.0325 ####[facility] [address] [place], [address] PAPSMR Comment Normal . [facility] Comment on above: Order Comment: Catalinai men Comment: [id number] Comment: No. of containers..01 ThinPrep Vial Result Comment: The Pap smear is a screening test designed to aid in the detection of premalignant and malignant conditions of the uterine cervix. It is not a diagnostic procedure and should not be used as the sole means of detecting cervical cancer. Both false-positive and false-negative reports do occur. Performed By: #### L 7400.0325 ####[facility] [address] [place], [place], [id number] PERFORM Comment Normal . [facility] Comment on above: Order Comment: Speci men Comment: [id number] Comment: No. of containers..01 ThinPrep Vial Result Comment: Fransisca Olivo Manager Social Work (ASCP) Performed By: #### L 7400.0325 ####[facility] [address] [place], [place], [id number] TRICH VAG JESICA Negative Normal Negative [facility] Comment on above: Order Comment: Speci men Comment: [id number] Comment: No. of containers..01 ThinPrep Vial Result Comment: Perf ormed at: - [facility] [id number] Feather Maker: Bambi Biggs MD, Phone: [phone] Performed at: =G - [facility] [address] [id number] Feather Maker: Bambi Biggs MD, Phone: [phone] Performed By: #### L 7400.0325 ####[facility] [address] [place], [place], [id number] Basic Metabolic Profile (BMP )on 12-23-2023 BUN/CRE 9.6 RATIO Low 10-20 [facility] Comment on above: Performed By: #### L 700.6800, L100.0100, L500.2500 #### [facility] [address] [place], [address] CA,Total 8.9 mg/dL Normal 8.5-10.1 [facility] Comment on above: Performed By: #### L 700.6800, L100.0100, L500.2500 #### [facility] [address] [place], [address] Chloride [Moles/Vol] 105 mmol/L Normal 98-107 [facility] Comment on above: Performed By: #### L 700.6800, L100.0100, L500.2500 #### [facility] [address] [place], [address] CO2 [Moles/Vol] 25.0 mmol/L Normal 21.0-32.0 [facility] Comment on above: Performed By: #### L 700.6800, L100.0100, L500.2500 #### [facility] [address] [place], [address] Creatinine [Mass/Vol] 0.83 mg/dL Normal 0.55-1.02 [facility] Comment on above: Result Comment: The validity of the calculated GFR GFRAA in patients over 70 years has not been determined. Clinical correlation is essential. Performed By: #### L 700.6800, L100.0100, L500.2500 #### [facility] [address] [place], [address] ECRCL 64.98 ml/min Normal [facility] Comment on above: Performed By: #### L 700.6800, L100.0100, L500.2500 #### [facility] [address] [place], [address] EST GFR - AA 95 mL/min Normal >60 [facility] Comment on above: Result Comment: Afri can Citizen Of [place] GFR Calc Performed By: #### L 700.6800, L100.0100, L500.2500 #### [facility] [address] [place], [address] GAP 7 Normal 5-15 [facility] Comment on above: Performed By: #### L 700.6800, L100.0100, L500.2500 #### [facility] [address] [place], [address] GFR/1.73 sq M.predicted among non-blacks MDRD (S/P/Bld) [Vol rate/Area] 78 mL/min/{1.73_m2} Normal >60 [facility] Comment on above: Result Comment: Non- GFR Calc Performed By: #### L 700.6800, L100.0100, L500.2500 #### [facility] [address] [place], [address] Glucose [Mass/Vol] 89 mg/dL Normal 74-106 [facility] Comment on above: Performed By: #### L 700.6800, L100.0100, L500.2500 #### [facility] [address] [place], [address] Potassium [Moles/Vol] 3.5 mmol/L Normal 3.5-5.1 [facility] Comment on above: Performed By: #### L 700.6800, L100.0100, L500.2500 #### [facility] [address] [place], [address] Sodium [Moles/Vol] 137 mmol/L Normal 136-145 [facility] Comment on above: Performed By: #### L 700.6800, L100.0100, L500.2500 #### [facility] [address] [place], [address] Urea nitrogen [Mass/Vol] 8 mg/dL Normal 7-18 [facility] Comment on above: Performed By: #### L 700.6800, L100.0100, L500.2500 #### [facility] [address] [place], [address] CBC W/Diff, Automatedon 07- Absolute Lymph 1.49 X10 3/uL Normal 0.83-4.51 [facility] Comment on above: Performed By: #### L 700.6800, L100.0100, L500.2500 #### [facility] [address] [place], [address] Absolute Neut 3.5 X10 3/uL Normal 2.0-7.7 [facility] Comment on above: Performed By: #### L 700.6800, L100.0100, L500.2500 #### [facility] [address] [place], [address] Basophils/100 WBC (Bld) 0.2 % Normal 0-1 [facility] Comment on above: Performed By: #### L 700.6800, L100.0100, L500.2500 #### [facility] [address] [place], [address] Eosinophils/100 WBC (Bld) 0.7 % Normal 0-5 [facility] Comment on above: Performed By: #### L 700.6800, L100.0100, L500.2500 #### [facility] [address] [place], [address] Erythrocyte distribution width (RBC) [Ratio] 12.7 % Normal 11.6-14.6 [facility] Comment on above: Performed By: #### L 700.6800, L100.0100, L500.2500 #### [facility] [address] [place], [address] Hematocrit (Bld) [Volume fraction] 40.9 % Normal 37-47 [facility] Comment on above: Performed By: #### L 700.6800, L100.0100, L500.2500 #### [facility] [address] [place], [address] Hemoglobin (Bld) [Mass/Vol] 12.9 g/dL Normal 12.0-15.0 [facility] Comment on above: Performed By: #### L 700.6800, L100.0100, L500.2500 #### [facility] [address] [place], [address] IG% 0.200 Normal 0.0-0.9 [facility] Comment on above: Result Comment: IG% - Immature Granulocytes (promyelocytes, myelocytes and metamyelocytes) > 1% indicates that a LEFT SHIFT is Present. Performed By: #### L 700.6800, L100.0100, L500.2500 #### [facility] [address] [place], [address] Lymphocytes/100 WBC (Bld) 26.2 % Normal 19-41 [facility] Comment on above: Performed By: #### L 700.6800, L100.0100, L500.2500 #### [facility] [address] [place], [address] MCH (RBC) [Entitic mass] 29.3 pg Normal 27.0-32.0 [facility] Comment on above: Performed By: #### L 700.6800, L100.0100, L500.2500 #### [facility] [address] [place], [address] MCHC (RBC) [Mass/Vol] 31.5 g/dL Low 32-36 [facility] Comment on above: Performed By: #### L 700.6800, L100.0100, L500.2500 #### [facility] [address] [place], [address] MCV (RBC) [Entitic vol] 92.7 fL Normal 81-99 [facility] Comment on above: Performed By: #### L 700.6800, L100.0100, L500.2500 #### [facility] [address] [place], [address] Monocytes/100 WBC (Bld) 10.9 % High 0-10 [facility] Comment on above: Performed By: #### L 700.6800, L100.0100, L500.2500 #### [facility] [address] [place], [address] Neutrophils/100 WBC (Bld) 61.8 % Normal 47-70 [facility] Comment on above: Performed By: #### L 700.6800, L100.0100, L500.2500 #### [facility] [address] [place], [address] Nucleated RBC (Bld) [#/Vol] 0 10*3/uL Normal 0-5 [facility] Comment on above: Performed By: #### L 700.6800, L100.0100, L500.2500 #### [facility] [address] [place], [address] Platelet mean volume (Bld) [Entitic vol] 9.8 fL Normal 6.2-12.0 [facility] Comment on above: Performed By: #### L 700.6800, L100.0100, L500.2500 #### [facility] [address] [place], [address] Platelets (Bld) [#/Vol] 227 10*3/uL Normal 150-450 [facility] Comment on above: Performed By: #### L 700.6800, L100.0100, L500.2500 #### [facility] [address] [place], [address] RBC (Bld) [#/Vol] 4.41 10*6/uL Normal 4.2-5.4 [facility] Comment on above: Performed By: #### L 700.6800, L100.0100, L500.2500 #### [facility] [address] [place], [address] RDW SD 43.2 fl Normal 35.1-43.9 [facility] Comment on above: Performed By: #### L 700.6800, L100.0100, L500.2500 #### [facility] [address] [place], [address] WBC (Bld) [#/Vol] 5.7 10*3/uL Normal 4.4-11.0 [facility] Comment on above: Performed By: #### L 700.6800, L100.0100, L500.2500 #### [facility] [address] [place], [address] Chest PA and Lateralon 12-22 Chest PA and Lateral [facility] Imaging Services [address] [place] [address] Chest PA and Lateral MR#: [id number] Acct: [id number] Name: CAPRI AGUILAR Rep #: [id number] : 1975 F 48 From: Jethro Kim MD PCP: Dr. Luisa Pemberton MD Status: [facility] ER Study: Chest PA and Lateral Date of Exam: 12/23/23 Exam# [id number] Ordering Dr: Damien De La Cruz DO [id number] STUDY: X-RAY CHEST REASON FOR EXAM: Female, 48 years old. Shortness of breath TECHNIQUE: PA and lateral views of the chest. COMPARISON: 03/20/2005 FINDINGS: Pectus excavatum deformity of the chest wall. The lungs are clear and expanded. There is no demonstrated pleural abnormality. Normal size heart. Normal mediastinum and bhakti. Normal visualized pulmonary arteries. Normal visualized aortic arch and descending thoracic aorta. Normal visualized thoracic spine. Normal visualized ribs, clavicles, and shoulders. There is no demonstrated abnormality of the visualized soft tissue structures of the upper abdomen. RAD/Chest PA and Lateral IMPRESSION: No active disease. Electronically Signed: Jethro Kim MD at 8:31 EDT , CC: Dr. Luisa Pemberton MD; Dr. Damien De La Cruz DO Telecommunications Technician: Signed Normal [facility] Emergency Department Summary on 12-23-2023 Emergency Department Summary [facility] Medical Records Department [address] [place] [address] Emergency Department Summary 12/23/23 MR#: [id number] Acct: [id number] Name: CAPRI AGUILAR Rep #: [id number] : 1975 48 From: Damien De La Cruz DO PCP: Dr. Luisa Pemberton MD Status:DEP ER Location: ED HPI History of Present Illness Chief Complaint: General Illness Informant: patient Onset/Context/Timing Onset: Yesterday Context: Gradual Onset Timing: Continuous Quality: Aching Location: Generalized Worsened by: Nothing Relieved by: Nothing Narrative Narrative: Patient presents with positive COVID test. Patient states that yesterday she started having symptoms of fevers, myalgias, and sore throat. Patient states he was getting progressively worse. Patient states nothing makes it better nothing makes it worse. Patient states her fever was up to 101.6 at home. Patient admits to some pain in her left trapezius area. Patient also admits to headache. Patient admits to some nausea but denies any vomiting. Patient states she has multiple medical problems which makes her symptoms worse. [facility] Medical History Loss of hearing Uses wheelchair Arthritis Easy bruising Cyclic vomiting syndrome Marfan syndrome Mitochondrial myopathies Chiquis-Danlos syndrome Injury of back Migraine headache Loss of consciousness Difficulty swallowing Gastric reflux Non-smoker Shortness of breath on exertion Leg cramps History of pain when walking History of edema History of echocardiogram History of stress test Cardiology follow-up encounter POTS (postural orthostatic tachycardia syndrome) Chest pain Hx of muscular dystrophy Home Medications ???Medication ???Instructions ???Recorded ???Last Taken ???Type ipratropium bromide 42 mcg (0.06 2 spray intranasal PRN PRN allergy 07/31/23 Unknown History %) nasal spray symptoms megestrol 400 mg/10 mL (40 mg/mL) 80 mg PO DAILY 07/31/23 08/11/23 History oral suspension montelukast 10 mg tablet 10 mg PO QHS 07/31/23 08/11/23 History (Singulair) multivitamin (Daily Multi-Vitamin 1 tab PO DAILY 07/31/23 08/11/23 History tablet) ondansetron 8 mg disintegrating 8 mg PO BID 07/31/23 08/12/23 History tablet oxycodone 20 mg/mL oral concentrate 20 mg PO Q4H 07/31/23 08/12/23 History benzocaine 15 mg-menthol 2.6 mg 1 jared mucous membrane Q2H PRN sore 12/23/23 Unknown Rx lozenges (Cepacol Sore Throat throat #16 ea (benzocaine-menthol) ) Allergy/AdvReac Type Severity Reaction Status Date / Time adhesive tape Allergy Intermediate Hives Verified 12/23/23 06:58 morphine Allergy Intermediate Hives Verified 12/23/23 06:58 perfume Allergy Intermediate Hives Verified 12/23/23 06:58 cephalexin AdvReac Intermediate Other Verified 12/23/23 06:58 Surgical History History of cardiac catheterization History of myringotomy History of removal of retained hardware Hx of biopsy History of ankle surgery Hx of wisdom tooth extraction Hx of prior ablation treatment History of ankle surgery History of ankle surgery Hx of left knee surgery Hx of right knee surgery Hx of hammer toe correction Hx of hammer toe correction History of tonsillectomy and adenoidectomy Social History Smoking Status: Never smoker ROS ROS ED Constitutional Constitutional ED: Reports chills and fever(s) Eyes Eyes: Denies blurry vision or change in vision ENT ENT ED: Reports sore throat; Denies rhinorrhea Cardiovascular Cardiovascular: Denies chest pain or palpitations Respiratory/Chest Respiratory/Chest: Reports dyspnea; Denies cough Gastrointestinal Gastrointestinal: Reports nausea; Denies vomiting Genitourinary Genitourinary ED: Denies dysuria or hematuria Musculoskeletal Musculoskeletal: Reports neck pain; Denies back pain Integumentary Denies abscess or rash Neurologic Neurologic: Reports headache(s); Denies weakness Allergic/Immunologic Allergic/Immunologic ED: Denies mouth swelling or urticaria EXAM Physical Exam Const Vital Signs: 12/23/23 06:57 12/23/23 06:57 12/23/23 09:00 Temperature 100.3 F H Temperature Source Oral Pulse Rate 122 H 90 Respiratory Rate 16 16 Respiratory Effort Normal Non-Labored Respiratory Pattern Normal Blood Pressure 130/66 H 127/72 H Blood Pressure Mean 87 90 Pulse Ox 100 99 Oxygen Delivery Method Room Air Room Air Positive well nourished and well developed General Appearance ED: well developed and NAD HEENT Reports moist mucous membranes Neck supple and no JVD Resp normal respiratory effort and clear to auscultation bilaterally Cardio re (more content not included)... Normal [facility] ,Serum,hCG Quali.on 12-23-2023 HCG, SERUM QUAL Negative Normal [facility] Comment on above: Performed By: #### L 700.6800, L100.0100, L500.2500 #### [facility] [address] [place], [address] Urinalysis, Completeon 12-22 RBC 0-5 SEEN Normal 0-5 [facility] Comment on above: Order Comment: CLEAN CATCH Performed By: #### L 400.0001 #### [facility] [address] [place], [address] BACTERIA 0 SEEN Normal None Seen [facility] Comment on above: Order Comment: CLEAN CATCH Performed By: #### L 400.0001 #### [facility] [address] [place], [address] EPI,SQUAMOUS 0 SEEN Normal 5-10 [facility] Comment on above: Order Comment: CLEAN CATCH Performed By: #### L 400.0001 #### [facility] [address] [place], [address] Mucus Ql (Urine sed) 0 SEEN Normal [facility] Comment on above: Order Comment: CLEAN CATCH Performed By: #### L 400.0001 #### [facility] [address] [place], [address] WBC 0 SEEN Normal 0-5 [facility] Comment on above: Order Comment: CLEAN CATCH Performed By: #### L 400.0001 #### [facility] [address] [place], [address] Operative Reporton 4 Operative Report [facility] Medical Records Department [address] [place] [address] Operative Report 08/12/23 1005 MR#: [id number] Acct: [id number] Name: CAPRI AGUILAR Rep #: [id number] : 1975 47 From: Mohit Henley MD PCP: Dr. Luisa Pemberton MD Status:[facility] Location: [place] [address] Report of Operation Date of Procedure: 08/12/23 Pre-Operative Diagnosis: bilateral eustachian tube dysfunction Post-Operative Diagnosis: same Surgery/Procedure Performed:: Bilateral myringotomy with T tubes Surgeon: Mohit Henley Type of Anesthesia: Local MAC Anesthesiologist: Abdullahi Leija Estimated Blood Loss (mL): none Description of Procedure: The patient was taken to the operating room on 08/12/2023. The patient was placed in the supine position on the operating room table. The patient was given Local/mac anesthesia. The operating microscope was used throughout the entire case. A speculum was inserted into the patient's left ear. Cerumen was removed using a curette. The eardrum was then treated with topical phenol. An incision was placed in the anterior inferior quadrant of the tympanic membrane. The old T-tube was removed from the middle ear with alligator forceps. A T tube was placed without difficulty. Antibiotic drops were instilled into the patient's ear. Next, a speculum was inserted into the patient's right ear. Cerumen was removed using a curette. The old tube was removed from the tympanic membrane. A new T-tube was placed without difficulty. Antibiotic drops were instilled into the patient's ear. The patient was then awoken and brought to the recovery room in stable condition. Blood loss minimal, replacement none. sponge, needle and instrument counts correct at the end of the procedure. 08/12/23 1008 Cosigner Signature (if applicable): CC: Dr. Luisa Pemberton MD; Dr. Mohit Henley MD Signed [facility] ,Urineon 08-12-2023 Beta HCG ( test) Ql (U) [facility] Comment on above: Result Comment: Canc elled via OM: Pt refuses the test Performed By: #### L 400.7600 #### [facility] [address] [place], [address] INTERNAL QC OK? [facility] Comment on above: Result Comment: Canc elled via OM: Pt refuses the test Performed By: #### L 400.7600 #### [facility] [address] [place], [address] RECORD KIT LOT# [facility] Comment on above: Result Comment: Canc elled via OM: Pt refuses the test Performed By: #### L 400.7600 #### [facility] [address] [place], [address] 12 Lead EKGon 08-08-2023 12 Lead EKG [facility] Cardiovascular Services [address] [place] [address] 12 Lead EKG 08/08/23 1329 MR#: [id number] Acct: [id number] Name: CAPRI AGUILAR Rep #: [id number] : 1975 47 From: Gaurav Silver MD Attending Dr: Dr. Mohit Henley MD Status: PRE [facility] [place]ing [place]: Mohit Henley MD Date: 08/08/23 Location[place] [facility] Sex: F C Admitted: Test Reason : PRE OP Blood Pressure : / mmHG Vent. Rate : 105 BPM Atrial Rate : 105 BPM P-R Int : 128 ms QRS Dur : 076 ms QT Int : 334 ms P-R-T Axes : 076 079 054 degrees QTc Int : 441 ms Sinus tachycardia Otherwise normal ECG Confirmed by ELISABETH SAMANIEGO, HUSAM ([id number]), technical writer and editor DEBORA KATHLEEN ([id number]) on 08/12/2023 6:53:16 AM Referred By: Mohit Henley Confirmed By:CHRISTOPHER SILVER MD 08/12/23 0653 Date Gaurav Silver MD CC: Dr. Luisa Pemberton MD; Dr. Mohit Henley MD Signed Normal [facility] Basophil percentageOrdered B y: Mohit Henley on 08-08-2023 Bilirubin [Mass/Vol] 0.70 mg/dL 0.20-1.00 [facility] Comment on above: For patients on eltr ombopag therapy, use of Dimension [place] TBIL is not recommended. Chloride [Moles/Vol] 110 mmol/L 98-107 [facility] Glucose [Mass/Vol] 82 mg/dL 74-106 [facility] Hemoglobin (Bld) [Mass/Vol] 13.9 g/dL 12.0-15.0 [facility] Potassium [Moles/Vol] 3.3 mmol/L 3.5-5.1 [facility] Protein [Mass/Vol] 7.8 g/dL 6.4-8.2 [facility] Sodium [Moles/Vol] 141 mmol/L 136-145 [facility] WBC (Bld) [#/Vol] 7.8 10*3/uL 4.4-11.0 [facility] CBC-Complete Blood Cnt No Di ffon 08-08-2023 Erythrocyte distribution width (RBC) [Ratio] 12.6 % Normal 11.6-14.6 [facility] Comment on above: Performed By: #### L 100.0500, L500.4050 ####[facility] [address] [place], [address] Hematocrit (Bld) [Volume fraction] 43.9 % Normal 37-47 [facility] Comment on above: Performed By: #### L 100.0500, L500.4050 ####[facility] [address] [place], [address] Hemoglobin (Bld) [Mass/Vol] 13.9 g/dL Normal 12.0-15.0 [facility] Comment on above: Performed By: #### L 100.0500, L500.4050 ####[facility] [address] [place], [address] MCH (RBC) [Entitic mass] 29.0 pg Normal 27.0-32.0 [facility] Comment on above: Performed By: #### L 100.0500, L500.4050 ####[facility] [address] [place], [address] MCHC (RBC) [Mass/Vol] 31.7 g/dL Low 32-36 [facility] Comment on above: Performed By: #### L 100.0500, L500.4050 ####[facility] [address] [place], [address] MCV (RBC) [Entitic vol] 91.6 fL Normal 81-99 [facility] Comment on above: Performed By: #### L 100.0500, L500.4050 ####[facility] [address] [place], [address] Platelet mean volume (Bld) [Entitic vol] 10.1 fL Normal 6.2-12.0 [facility] Comment on above: Performed By: #### L 100.0500, L500.4050 ####[facility] [address] [place], [address] Platelets (Bld) [#/Vol] 352 10*3/uL Normal 150-450 [facility] Comment on above: Performed By: #### L 100.0500, L500.4050 ####[facility] [address] [place], [address] RBC (Bld) [#/Vol] 4.79 10*6/uL Normal 4.2-5.4 [facility] Comment on above: Performed By: #### L 100.0500, L500.4050 ####[facility] [address] [place], [address] RDW SD 42.4 fl Normal 35.1-43.9 [facility] Comment on above: Performed By: #### L 100.0500, L500.4050 ####[facility] [address] [place], [address] WBC (Bld) [#/Vol] 7.8 10*3/uL Normal 4.4-11.0 [facility] Comment on above: Performed By: #### L 100.0500, L500.4050 ####[facility] [address] [place], [address] Comprehensive Metabolic Prof ilon 08-08-2023 Albumin [Mass/Vol] 4.1 g/dL Normal 3.2-5.0 [facility] Comment on above: Performed By: #### L 100.0500, L500.4050 ####[facility] [address] [place], [address] Albumin/Globulin [Mass ratio] 1.1 {ratio} Normal 0.9-2.4 [facility] Comment on above: Performed By: #### L 100.0500, L500.4050 ####[facility] [address] [place], [address] ALK P 72 U/L Normal 45-117 [facility] Comment on above: Performed By: #### L 100.0500, L500.4050 ####[facility] [address] [place], [address] ALT [Catalytic activity/Vol] 18 U/L Normal 13-56 [facility] Comment on above: Performed By: #### L 100.0500, L500.4050 ####[facility] [address] [place], [address] AST [Catalytic activity/Vol] 18 U/L Normal 15-37 [facility] Comment on above: Performed By: #### L 100.0500, L500.4050 ####[facility] [address] [place], [address] Bilirubin [Mass/Vol] 0.70 mg/dL Normal 0.20-1.00 [facility] Comment on above: Result Comment: For patients on eltrombopag therapy, use of Dimension [place] TBIL is not recommended. Performed By: #### L 100.0500, L500.4050 ####[facility] [address] [place], [address] BUN/CRE 10.0 RATIO Normal 10-20 [facility] Comment on above: Performed By: #### L 100.0500, L500.4050 ####[facility] [address] [place], [address] CA,Total 9.7 mg/dL Normal 8.5-10.1 [facility] Comment on above: Performed By: #### L 100.0500, L500.4050 ####[facility] [address] [place], [address] Chloride [Moles/Vol] 110 mmol/L High 98-107 [facility] Comment on above: Performed By: #### L 100.0500, L500.4050 ####[facility] [address] [place], [address] CO2 [Moles/Vol] 25.0 mmol/L Normal 21.0-32.0 [facility] Comment on above: Performed By: #### L 100.0500, L500.4050 ####[facility] [address] [place], [address] Creatinine [Mass/Vol] 0.90 mg/dL Normal 0.55-1.02 [facility] Comment on above: Result Comment: The validity of the calculated GFR GFRAA in patients over 70 years has not been determined. Clinical correlation is essential. Performed By: #### L 100.0500, L500.4050 ####[facility] [address] [place], [address] EST GFR - AA 87 mL/min Normal >60 [facility] Comment on above: Result Comment: Afri can Citizen Of [place] GFR Calc Performed By: #### L 100.0500, L500.4050 ####[facility] [address] [place], [address] GAP 6 Normal 5-15 [facility] Comment on above: Performed By: #### L 100.0500, L500.4050 ####[facility] [address] [place], [address] GFR/1.73 sq M.predicted among non-blacks MDRD (S/P/Bld) [Vol rate/Area] 72 mL/min/{1.73_m2} Normal >60 [facility] Comment on above: Result Comment: Non- GFR Calc Performed By: #### L 100.0500, L500.4050 ####[facility] [address] [place], [address] Globulin (S) [Mass/Vol] 3.7 g/dL Normal 2.2-4.2 [facility] Comment on above: Performed By: #### L 100.0500, L500.4050 ####[facility] [address] [place], [address] Glucose [Mass/Vol] 82 mg/dL Normal 74-106 [facility] Comment on above: Performed By: #### L 100.0500, L500.4050 ####[facility] [address] [place], [address] Potassium [Moles/Vol] 3.3 mmol/L Low 3.5-5.1 [facility] Comment on above: Performed By: #### L 100.0500, L500.4050 ####[facility] [address] [place], [address] Sodium [Moles/Vol] 141 mmol/L Normal 136-145 [facility] Comment on above: Performed By: #### L 100.0500, L500.4050 ####[facility] [address] [place], [address] T PROT 7.8 g/dL Normal 6.4-8.2 [facility] Comment on above: Performed By: #### L 100.0500, L500.4050 ####[facility] [address] [place], [address] Urea nitrogen [Mass/Vol] 9 mg/dL Normal 7-18 [facility] Comment on above: Performed By: #### L 100.0500, L500.4050 ####[facility] [address] [place], [address] Determination of erythrocyte mean corpuscular volume (MCV)Ordered By: Mohit Henley on 08-08-2023 MCV (RBC) [Entitic vol] 91.6 fL 81-99 [facility] Erythrocyte distribution wid th ratioOrdered By: Mohit Henley on 08-08-2023 Erythrocyte distribution width (RBC) [Ratio] 12.6 % 11.6-14.6 [facility] Erythrocyte distribution wid th standard deviationOrdered By: Mohit Henley on 08-08-2023 Erythrocyte distribution width (RBC) [Entitic vol] 42.4 fL 35.1-43.9 [facility] Hematocrit Auto (Bld) [Volum e fraction]Ordered By: Mohit Henley on 08-08-2023 Hematocrit (Bld) [Volume fraction] 43.9 % 37-47 [facility] - Chemistry and C hemistry - challengeOrdered By: Mohit Henley on 08-08-2023 Albumin/Globulin [Mass ratio] 1.1 {ratio} 0.9-2.4 [facility] ALP [Catalytic activity/Vol] 72 U/L 45-117 [facility] ALT [Catalytic activity/Vol] 18 U/L 13-56 [facility] CO2 [Moles/Vol] 25.0 mmol/L 21.0-32.0 [facility] Globulin (S) [Mass/Vol] 3.7 g/dL 2.2-4.2 [facility] Urea nitrogen/Creatinine [Mass ratio] 10.0 mg/mg 10-20 [facility] - Hematology and Cell countsOrdered By: Mohit Henley on 08-08-2023 MCH (RBC) [Entitic mass] 29.0 pg 27.0-32.0 [facility] MCHC (RBC) [Mass/Vol] 31.7 g/dL 32-36 [facility] Platelet mean volume (Bld) [Entitic vol] 10.1 fL 6.2-12.0 [facility] Platelets (Bld) [#/Vol] 352 10*3/uL 150-450 [facility] No Panel InformationOrdered By: Mohit Henley on 08-08-2023 Estimated GFR (MDRD) Amer 87 mL/min >60 [facility] Comment on above: GFR Calc Estimated GFR (MDRD) Non-Af Amer 72 mL/min >60 [facility] Comment on above: Non- GFR Calc RBC Auto (Bld) [#/Vol]Ordere d By: Mohit Henley on 08-08-2023 RBC (Bld) [#/Vol] 4.79 10*6/uL 4.2-5.4 [facility] Serum or plasma calcium prashanth urement (mass/volume)Ordered By: Mohit Henlye on 08-08-2023 Calcium [Mass/Vol] 9.7 mg/dL 8.5-10.1 [facility] Serum or plasma creatinine m easurement (mass/volume)Ordered By: Mohit Henley on 08-08-2023 Creatinine [Mass/Vol] 0.90 mg/dL 0.55-1.02 [facility] Comment on above: The validity of the calculated GFR & GFRAA in patients over 70 years has not been determined. Clinical correlation is essential. Serum or plasma urea nitroge n measurement (mass/volume)Ordered By: Mohit Shepherdur on 08-08-2023 Urea nitrogen [Mass/Vol] 9 mg/dL 7-18 [facility] Thin prep Papanicolaou smear with manual screeningOrdered By: Mohit Shepherdur on 08-08-2023 Thin prep Papanicolaou smear with manual screening 4.1 g/dL 3.2-5.0 [facility] Thin prep Papanicolaou smear with manual screening 18 U/L 15-37 [facility] Thin prep Papanicolaou smear with manual screening 6 5-15 [facility] 6-ACETYLMORPHINon 11-03-2018 6-JULIOCESAR TOXASSURE Negative Normal () [facility] Comment on above: Order Comment: Rasheed Cunningham Performed By: #### L 600.32018, L600.28094 #### [facility] [address] [place] [address] CONFIRMATION 6M Not Detected Normal () [facility] Comment on above: Order Comment: Rasheed Cunningham Result Comment: INFC E Result Units: ng/mg creat Testing Threshold: 10 ng/mL This test was developed and its performance characteristics determined by [facility]. It has not been cleared or approved by the Food and Drug Administration. Performed At: [facility] [address] [id number] [place] [facility] [id number] Performed By: #### L 600.18573, L600.12350 #### [facility] [address] [place] [address] TOXASSURE COMPRon 11-03-2018 TOXASSURE COMPR FINAL Normal () [facility] Comment on above: Order Comment: Rasheed Cunningham Result Comment: ===== TOXASSURE COMP DRUG ANALYSIS,UR 6-Acetylmorphine,ToxAssure Add CREATININE,URINE ===== Test Result Flag Units Drug Present Oxycodone >4902 ng/mg creat Oxymorphone 1525 ng/mg creat Noroxycodone >4902 ng/mg creat Noroxymorphone >4902 ng/mg creat Sources of oxycodone are scheduled prescription medications. Oxymorphone, noroxycodone, and noroxymorphone are expected metabolites of oxycodone. Oxymorphone is also available as a scheduled prescription medication. ===== Test Result Flag Units Ref Range Creatinine 204 mg/dL >=20 ===== Declared Medications: Medication list was not provided. ===== For clinical consultation, please call . 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 Left ventricular Ejection fraction 55 % Invalid Interpretation Code [facility] Work Phone: [phone] Replaced Document: Tana Villareal CG Observationson 01-09-2016 electrocardiogram interpretation Sinus Rhythm WITHIN NORMAL LIMITS Invalid Interpretation Code [facility] Work Phone: [phone] GE use only - for [employer] import when terms are not otherwise specified 391 ms Invalid Interpretation Code [facility] Work Phone: [phone] Heart rate 86 /min Invalid Interpretation Code [facility] Work Phone: [phone] P wave axis, electrocardiogram 61 deg Invalid Interpretation Code [facility] Work Phone: [phone] FL interval, electrocardiogram 128 ms Invalid Interpretation Code [facility] Work Phone: [phone] QRS axis, electrocardiogram 47 deg Invalid Interpretation Code [facility] Work Phone: [phone] QRS duration, electrocardiogram 94 ms Invalid Interpretation Code [facility] Work Phone: [phone] QT interval, electrocardiogram new path ms Invalid Interpretation Code [facility] Work Phone: [phone] T wave axis, electrocardiogram 32 deg Invalid Interpretation Code [facility] Work Phone: [phone] Office Visiton 06-24-2015 Tobacco use status CP Never smoker Invalid Interpretation Code [facility] Work Phone: [phone] Office Visit: MMMon 07-07-19 15 cardiac risk group A Invalid Interpretation Code [facility] Work Phone: [phone] General cardiovascular disease 10Y risk [#] [place] Not enough information Invalid Interpretation Code [facility] Work Phone: [phone] Tobacco smoking status Never Invalid Interpretation Code [facility] Work Phone: Clinical Lists Update: [employer]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 Left ventricular Ejection fraction 55 % Invalid Interpretation Code [facility] Work Phone: Replaced Document: Tana RAMIREZ Observationson 08-14-2012 QT interval/QT interval (corrected for heart rate), electrocardiogram 386 ms Invalid Interpretation Code [facility] Work Phone: Vital Signs Date Time Vital Sign Value Performing Clinician Facility 02-23-2025 16:46-0400 Diastolic blood pressure 87 mm[Hg] Vini Mcdonald MD Work Phone: [facility] 02-23-2025 16:46-0400 Heart rate 93 /min Vini Mcdonald MD Work Phone: [facility] 02-23-2025 16:46-0400 Respiratory rate 16 /min Vini Mcdonald MD Work Phone: [facility] 02-23-2025 16:46-0400 Systolic blood pressure 146 mm[Hg] Vnii Mcdonald MD Work Phone: [facility] 02-23-2025 15:53-0400 Body temperature 98.29 [degF] Vini Mcdonald MD Work Phone: [facility] 02-23-2025 15:53-0400 SaO2% (BldA) [Mass fraction] 97 % Vini Mcdonald MD Work Phone: [facility] 01-05-2025 15:23-0400 Diastolic blood pressure 92 mm[Hg] Vini Mcdonald MD Work Phone: [facility] 01-05-2025 15:23-0400 Heart rate 117 /min Vini Mcdonald MD Work Phone: [facility] 01-05-2025 15:23-0400 Respiratory rate 18 /min Vini Mcdonald MD Work Phone: [facility] 01-05-2025 15:23-0400 Systolic blood pressure 148 mm[Hg] Vini Mcdonald MD Work Phone: [facility] 01-05-2025 15:04-0400 Body temperature 98.4 [degF] Vini Mcdonald MD Work Phone: [facility] 01-05-2025 15:04-0400 SaO2% (BldA) [Mass fraction] 99 % Vini Mcdonald MD Work Phone: [facility] 01-05-2025 14:37-0400 Diastolic blood pressure 80 mm[Hg] Erika Conway PA-C Work Phone: [facility] 01-05-2025 14:37-0400 Heart rate 91 /min Erika Conway PA-C Work Phone: [facility] 01-05-2025 14:37-0400 Respiratory rate 16 /min Erika Conway PA-C Work Phone: [facility] 01-05-2025 14:37-0400 SaO2% (BldA) [Mass fraction] 99 % Erika Conway PA-C Work Phone: [facility] 01-05-2025 14:37-0400 Systolic blood pressure 126 mm[Hg] Erika Conway PA-C Work Phone: [facility] 12-31-2024 15:41-0400 Diastolic blood pressure 74 mm[Hg] Vini Mcdonald MD Work Phone: [facility] 12-31-2024 15:41-0400 Heart rate 110 /min Vini Mcdonald MD Work Phone: [facility] 12-31-2024 15:41-0400 Respiratory rate 18 /min Vini Mcdonald MD Work Phone: [facility] 12-31-2024 15:41-0400 Systolic blood pressure 142 mm[Hg] Vini Mcdonald MD Work Phone: [facility] 12-31-2024 15:10-0400 Body temperature 96.8 [degF] Vini Mcdonald MD Work Phone: [facility] 12-29-2024 15:57-0400 Diastolic blood pressure 81 mm[Hg] Vini Mcdonald MD Work Phone: [facility] 12-29-2024 15:57-0400 Heart rate 102 /min Vini Mcdonald MD Work Phone: [facility] 12-29-2024 15:57-0400 Respiratory rate 16 /min Vini Mcdonald MD Work Phone: [facility] 12-29-2024 15:57-0400 Systolic blood pressure 135 mm[Hg] Vini Mcdonald MD Work Phone: [facility] 12-29-2024 15:16-0400 SaO2% (BldA) [Mass fraction] 100 % Vini Mcdonald MD Work Phone: [facility] 11-05-2024 15:38-0400 Diastolic blood pressure 84 mm[Hg] Vini Mcdonald MD Work Phone: [facility] 11-05-2024 15:38-0400 Heart rate 110 /min Vini Mcdonald MD Work Phone: [facility] 11-05-2024 15:38-0400 Respiratory rate 18 /min Vini Mcdonald MD Work Phone: [facility] 11-05-2024 15:38-0400 Systolic blood pressure 140 mm[Hg] Vini Mcdonald MD Work Phone: [facility] 11-05-2024 15:18-0400 Body temperature 96.6 [degF] Vini Mcdonald MD Work Phone: [facility] 11-03-2024 15:48-0400 Diastolic blood pressure 63 mm[Hg] Vini Mcdonald MD Work Phone: [facility] 11-03-2024 15:48-0400 Heart rate 93 /min Vini Mcdonald MD Work Phone: [facility] 11-03-2024 15:48-0400 Respiratory rate 18 /min Vini Mcdonald MD Work Phone: [facility] 11-03-2024 15:48-0400 SaO2% (BldA) [Mass fraction] 99 % Vini Mcdonald MD Work Phone: [facility] 11-03-2024 15:48-0400 Systolic blood pressure 143 mm[Hg] Vini Mcdonald MD Work Phone: [facility] 10-06-2024 16:00-0400 Diastolic blood pressure 86 mm[Hg] Vini Mcdonald MD Work Phone: [facility] 10-06-2024 16:00-0400 Heart rate 100 /min Vini Mcdonald MD Work Phone: [facility] 10-06-2024 16:00-0400 Respiratory rate 18 /min Vini Mcdonald MD Work Phone: [facility] 10-06-2024 16:00-0400 Systolic blood pressure 131 mm[Hg] Vini Mcdonald MD Work Phone: [facility] 10-06-2024 15:21-0400 Body temperature 97.3 [degF] Vini Mcdonald MD Work Phone: [facility] 10-06-2024 15:21-0400 SaO2% (BldA) [Mass fraction] 99 % Vini Mcdonald MD Work Phone: [facility] 09-18-2024 13:26-0400 Body mass index (BMI) [Ratio] 16.29 kg/m2 Erika Conway PA-C Work Phone: [facility] 09-18-2024 13:26-0400 Body weight 47.17 kg Erika Conway PA-C Work Phone: [facility] 09-18-2024 13:26-0400 Diastolic blood pressure 88 mm[Hg] Erika Conway PA-C Work Phone: [facility] 09-18-2024 13:26-0400 Heart rate 110 /min Erika QUINTANA-C Work Phone: [facility] 09-18-2024 13:26-0400 Respiratory rate 18 /min Erika Conway PA-C Work Phone: [facility] 09-18-2024 13:26-0400 SaO2% (BldA) [Mass fraction] 97 % Erika Conway PA-C Work Phone: [facility] 09-18-2024 13:26-0400 Systolic blood pressure 137 mm[Hg] Erika Conway PA-C Work Phone: [facility] 09-10-2024 15:50-0400 Diastolic blood pressure 84 mm[Hg] Vini Mcdonald MD Work Phone: [facility] 09-10-2024 15:50-0400 Heart rate 85 /min Vini Mcdonald MD Work Phone: [facility] 09-10-2024 15:50-0400 Respiratory rate 18 /min Vini Mcdonald MD Work Phone: [facility] 09-10-2024 15:50-0400 Systolic blood pressure 135 mm[Hg] Vini Mcdonald MD Work Phone: [facility] 09-10-2024 15:05-0400 Body temperature 96.8 [degF] Vini Mcdonald MD Work Phone: [facility] 09-08-2024 16:11-0400 Diastolic blood pressure 87 mm[Hg] Vini Mcdonald MD Work Phone: [facility] 09-08-2024 16:11-0400 Heart rate 100 /min Vini Mcdonald MD Work Phone: [facility] 09-08-2024 16:11-0400 Respiratory rate 16 /min Vini Mcdonald MD Work Phone: [facility] 09-08-2024 16:11-0400 Systolic blood pressure 151 mm[Hg] Vini Mcdonald MD Work Phone: [facility] 09-08-2024 15:32-0400 Body temperature 97.3 [degF] Vini Mcdonald MD Work Phone: [facility] 09-08-2024 15:32-0400 SaO2% (BldA) [Mass fraction] 100 % Vini Mcdonald MD Work Phone: [facility] 07-16-2024 15:29-0500 Heart rate 105 /min Vini Mcdonald MD Work Phone: [facility] 07-16-2024 15:29-0500 Respiratory rate 18 /min Vini Mcdonald MD Work Phone: [facility] 07-16-2024 14:57-0500 Body temperature 96.4 [degF] Vini Mcdonald MD Work Phone: [facility] 07-16-2024 14:57-0500 Diastolic blood pressure 67 mm[Hg] Vini Mcdonald MD Work Phone: [facility] 07-16-2024 14:57-0500 Systolic blood pressure 119 mm[Hg] Vini Mcdonald MD Work Phone: [facility] 07-14-2024 15:13-0500 Diastolic blood pressure 81 mm[Hg] Vini Mcdonald MD Work Phone: [facility] 07-14-2024 15:13-0500 Heart rate 102 /min Vini Mcdonald MD Work Phone: [facility] 07-14-2024 15:13-0500 Respiratory rate 18 /min Vini Mcdonald MD Work Phone: [facility] 07-14-2024 15:13-0500 Systolic blood pressure 136 mm[Hg] Vini Mcdonald MD Work Phone: [facility] 07-14-2024 14:44-0500 Body temperature 98.4 [degF] Vini Mcdonald MD Work Phone: [facility] 07-07-2024 16:19-0500 Diastolic blood pressure 78 mm[Hg] Vini Mcdonald MD Work Phone: [facility] 07-07-2024 16:19-0500 Heart rate 114 /min Vini Mcdonald MD Work Phone: [facility] 07-07-2024 16:19-0500 Respiratory rate 16 /min Vini Mcdonald MD Work Phone: [facility] 07-07-2024 16:19-0500 SaO2% (BldA) [Mass fraction] 98 % Vini Mcdonald MD Work Phone: [facility] 07-07-2024 16:19-0500 Systolic blood pressure 122 mm[Hg] Vini Mcdonald MD Work Phone: [facility] 07-07-2024 15:23-0500 Body temperature 98.49 [degF] Vini Mcdonald MD Work Phone: [facility] 06-23-2024 13:00-0500 Diastolic blood pressure 74 mm[Hg] Erika Conway PA-C Work Phone: [facility] 06-23-2024 13:00-0500 Heart rate 90 /min Erika Conway PA-C Work Phone: [facility] 06-23-2024 13:00-0500 Respiratory rate 16 /min Erika Conway PA-C Work Phone: [facility] 06-23-2024 13:00-0500 SaO2% (BldA) [Mass fraction] 100 % Erika Conway PA-C Work Phone: [facility] 06-23-2024 13:00-0500 Systolic blood pressure 119 mm[Hg] Erika Conway PA-C Work Phone: [facility] 05-19-2024 15:42-0500 Diastolic blood pressure 84 mm[Hg] Vini Mcdonald MD Work Phone: [facility] 05-19-2024 15:42-0500 Heart rate 75 /min Vini Mcdonald MD Work Phone: [facility] 05-19-2024 15:42-0500 Respiratory rate 18 /min Vini Mcdonald MD Work Phone: [facility] 05-19-2024 15:42-0500 Systolic blood pressure 136 mm[Hg] Vini Mcdonald MD Work Phone: [facility] 05-12-2024 15:48-0500 Diastolic blood pressure 83 mm[Hg] Vini Mcdonald MD Work Phone: [facility] 05-12-2024 15:48-0500 Heart rate 101 /min Vini Mcdonald MD Work Phone: [facility] 05-12-2024 15:48-0500 Respiratory rate 18 /min Vini Mcdonald MD Work Phone: [facility] 05-12-2024 15:48-0500 Systolic blood pressure 144 mm[Hg] Vini Mcdonald MD Work Phone: [facility] 05-12-2024 15:12-0500 Body temperature 96.91 [degF] Vini Mcdonald MD Work Phone: [facility] 04-02-2024 15:55-0400 Diastolic blood pressure 79 mm[Hg] Vini Mcdonald MD Work Phone: [facility] 04-02-2024 15:55-0400 Heart rate 97 /min Vini Mcdonald MD Work Phone: [facility] 04-02-2024 15:55-0400 Respiratory rate 18 /min Vini Mcdonald MD Work Phone: [facility] 04-02-2024 15:55-0400 Systolic blood pressure 137 mm[Hg] Vini Mcdonald MD Work Phone: [facility] 04-02-2024 15:16-0400 Body temperature 96.8 [degF] Vini Mcdonald MD Work Phone: [facility] 03-25-2024 14:25-0400 Body mass index (BMI) [Ratio] 16.29 kg/m2 Erika Conway PA-C Work Phone: [facility] 03-25-2024 14:25-0400 Body weight 47.17 kg Erika Conway PA-C Work Phone: [facility] 03-25-2024 14:25-0400 Diastolic blood pressure 85 mm[Hg] Erika Conway PA-C Work Phone: [facility] 03-25-2024 14:25-0400 Heart rate 97 /min Erika Conway PA-C Work Phone: [facility] 03-25-2024 14:25-0400 Respiratory rate 18 /min Erika Conway PA-C Work Phone: [facility] 03-25-2024 14:25-0400 SaO2% (BldA) [Mass fraction] 100 % Erika Conway PA-C Work Phone: [facility] 03-25-2024 14:25-0400 Systolic blood pressure 125 mm[Hg] Erika Conway PA-C Work Phone: [facility] 03-12-2024 15:36-0400 Diastolic blood pressure 84 mm[Hg] Vini Mcdonald MD Work Phone: [facility] 03-12-2024 15:36-0400 Heart rate 90 /min Vini Mcdonald MD Work Phone: [facility] 03-12-2024 15:36-0400 Respiratory rate 18 /min Vini Mcdonald MD Work Phone: [facility] 03-12-2024 15:36-0400 Systolic blood pressure 146 mm[Hg] Vini Mcdonald MD Work Phone: [facility] 03-12-2024 14:54-0400 Body temperature 97.81 [degF] Vini Mcdonald MD Work Phone: [facility] 03-10-2024 15:42-0400 Diastolic blood pressure 88 mm[Hg] Vini Mcdonald MD Work Phone: [facility] 03-10-2024 15:42-0400 Heart rate 82 /min Vini Mcdonald MD Work Phone: [facility] 03-10-2024 15:42-0400 Respiratory rate 18 /min Vini Mcdonald MD Work Phone: [facility] 03-10-2024 15:42-0400 Systolic blood pressure 148 mm[Hg] Vini Mcdonald MD Work Phone: [facility] 03-10-2024 15:02-0400 Body temperature 97.7 [degF] Vini Mcdonald MD Work Phone: [facility] 01-14-2024 15:52-0400 Diastolic blood pressure 87 mm[Hg] Vini Mcdonald MD Work Phone: [facility] 01-14-2024 15:52-0400 Heart rate 74 /min Vini Mcdonald MD Work Phone: [facility] 01-14-2024 15:52-0400 Respiratory rate 18 /min Vini Mcdonald MD Work Phone: [facility] 01-14-2024 15:52-0400 Systolic blood pressure 125 mm[Hg] Vini Mcdonald MD Work Phone: [facility] 01-14-2024 15:25-0400 Body temperature 96.8 [degF] Vini Mcdonald MD Work Phone: [facility] 01-09-2024 15:37-0400 Body temperature 97 [degF] Vini Mcodnald MD Work Phone: [facility] 01-09-2024 15:37-0400 Diastolic blood pressure 78 mm[Hg] Vini Mcdonald MD Work Phone: [facility] 01-09-2024 15:37-0400 Heart rate 86 /min Vini Mcdonald MD Work Phone: [facility] 01-09-2024 15:37-0400 Respiratory rate 18 /min Vini Mcdonald MD Work Phone: [facility] 01-09-2024 15:37-0400 Systolic blood pressure 128 mm[Hg] Vini Mcdonald MD Work Phone: [facility] 12-18-2023 14:16-0400 Body mass index (BMI) [Ratio] 16.29 kg/m2 Vini Mcdonald MD Work Phone: [facility] 12-18-2023 14:16-0400 Body weight 47.17 kg Vini Mcdonald MD Work Phone: [facility] 12-18-2023 14:16-0400 Diastolic blood pressure 70 mm[Hg] Vini Mcdonald MD Work Phone: [facility] 12-18-2023 14:16-0400 Heart rate 67 /min Vini Mcdonald MD Work Phone: [facility] 12-18-2023 14:16-0400 Respiratory rate 18 /min Vini Mcdonald MD Work Phone: [facility] 12-18-2023 14:16-0400 SaO2% (BldA) [Mass fraction] 97 % Vini Mcdonald MD Work Phone: [facility] 12-18-2023 14:16-0400 Systolic blood pressure 134 mm[Hg] Vini Mcdonald MD Work Phone: [facility] 11-14-2023 13:50-0400 Diastolic blood pressure 78 mm[Hg] Dejon Andres MD Work Phone: [facility] 11-14-2023 13:50-0400 Heart rate 67 /min Dejon Andres MD Work Phone: [facility] 11-14-2023 13:50-0400 Respiratory rate 18 /min Dejon Andres MD Work Phone: [facility] 11-14-2023 13:50-0400 Systolic blood pressure 143 mm[Hg] Dejon Andres MD Work Phone: [facility] 11-14-2023 13:16-0400 Body temperature 97.2 [degF] Dejon Andres MD Work Phone: [facility] 10-29-2023 14:31-0400 Body mass index (BMI) [Ratio] 16.29 kg/m2 Erika QUINTANA-C Work Phone: [facility] 10-29-2023 14:31-0400 Body weight 47.17 kg Erika Conway PA-C Work Phone: [facility] 10-29-2023 14:31-0400 Diastolic blood pressure 76 mm[Hg] Erika QUINTANA-C Work Phone: [facility] 10-29-2023 14:31-0400 Heart rate 106 /min Erika QUINTANA-C Work Phone: [facility] 10-29-2023 14:31-0400 Respiratory rate 18 /min Erika Conway PA-C Work Phone: [facility] 10-29-2023 14:31-0400 SaO2% (BldA) [Mass fraction] 99 % Erika QUINTANA-C Work Phone: [facility] 10-29-2023 14:31-0400 Systolic blood pressure 147 mm[Hg] Erika QUINTANA-C Work Phone: [facility] 10-24-2023 09:31-0400 Diastolic blood pressure 82 mm[Hg] Dejon Andres MD Work Phone: [facility] 10-24-2023 09:31-0400 Heart rate 81 /min Dejon Andres MD Work Phone: [facility] 10-24-2023 09:31-0400 Respiratory rate 18 /min Dejon Andres MD Work Phone: [facility] 10-24-2023 09:31-0400 SaO2% (BldA) [Mass fraction] 100 % Dejon Andres MD Work Phone: [facility] 10-24-2023 09:31-0400 Systolic blood pressure 130 mm[Hg] Dejon Andres MD Work Phone: [facility] 10-24-2023 09:13-0400 Body temperature 96.4 [degF] Dejon Andres MD Work Phone: [facility] 10-22-2023 16:21-0400 Diastolic blood pressure 88 mm[Hg] Dejon Andres MD Work Phone: [facility] 10-22-2023 16:21-0400 Heart rate 82 /min Dejon Andres MD Work Phone: [facility] 10-22-2023 16:21-0400 Respiratory rate 18 /min Dejon Andres MD Work Phone: [facility] 10-22-2023 16:21-0400 Systolic blood pressure 137 mm[Hg] Dejon Andres MD Work Phone: [facility] 10-22-2023 16:07-0400 Body temperature 97.11 [degF] Dejon Andres MD Work Phone: [facility] 09-19-2023 14:45-0400 Body height 170.2 cm Erika Conway PA-C Work Phone: [facility] 09-19-2023 14:45-0400 Body temperature 98.1 [degF] Erika Conway PA-C Work Phone: [facility] 09-19-2023 14:45-0400 Body weight 47.17 kg Erika QUINTANA-C Work Phone: [facility] 09-19-2023 14:45-0400 Diastolic blood pressure 57 mm[Hg] Erika Conway PA-C Work Phone: [facility] 09-19-2023 14:45-0400 Heart rate 103 /min Erika QUINTANA-C Work Phone: [facility] 09-19-2023 14:45-0400 Respiratory rate 18 /min Erika Conway PA-C Work Phone: [facility] 09-19-2023 14:45-0400 SaO2% (BldA) [Mass fraction] 97 % Erika QUINTANA-C Work Phone: [facility] 09-19-2023 14:45-0400 Systolic blood pressure 109 mm[Hg] Erika QUINTANA-C Work Phone: [facility] 09-03-2023 15:19-0400 Diastolic blood pressure 76 mm[Hg] Dejon Andres MD Work Phone: [facility] 09-03-2023 15:19-0400 Heart rate 115 /min Dejon Andres MD Work Phone: [facility] 09-03-2023 15:19-0400 Respiratory rate 18 /min Dejon Andres MD Work Phone: [facility] 09-03-2023 15:19-0400 Systolic blood pressure 119 mm[Hg] Dejon Andres MD Work Phone: [facility] 09-03-2023 15:04-0400 Body temperature 96.6 [degF] Dejon Andres MD Work Phone: [facility] 08-29-2023 15:12-0400 Diastolic blood pressure 72 mm[Hg] Dejon Andres MD Work Phone: [facility] 08-29-2023 15:12-0400 Heart rate 100 /min Dejon Andres MD Work Phone: [facility] 08-29-2023 15:12-0400 Respiratory rate 18 /min Dejon Andres MD Work Phone: [facility] 08-29-2023 15:12-0400 Systolic blood pressure 122 mm[Hg] Dejon Andres MD Work Phone: [facility] 08-29-2023 14:59-0400 Body temperature 96.3 [degF] Dejon Andres MD Work Phone: [facility] 08-12-2023 10:25-0500 Body temperature 97.3 [degF] [facility] 08-12-2023 10:25-0500 Diastolic blood pressure 74 mm[Hg] [facility] 08-12-2023 10:25-0500 Heart rate 79 /min [facility] 08-12-2023 10:25-0500 Respiratory rate 16 /min [facility] 08-12-2023 10:25-0500 SaO2% (BldA) [Mass fraction] 99 % [facility] 08-12-2023 10:25-0500 Systolic blood pressure 114 mm[Hg] [facility] 08-12-2023 09:32-0500 Body height 170.18 cm [facility] 08-12-2023 09:32-0500 Body mass index (BMI) [Ratio] 16.9 kg/m2 [facility] 08-12-2023 09:32-0500 Body weight 49.1 kg [facility] 08-06-2023 15:13-0500 Diastolic blood pressure 89 mm[Hg] Dejon Andres MD Work Phone: [facility] 08-06-2023 15:13-0500 Heart rate 120 /min Dejon Andres MD Work Phone: [facility] 08-06-2023 15:13-0500 Respiratory rate 18 /min Dejon Andres MD Work Phone: [facility] 08-06-2023 15:13-0500 Systolic blood pressure 152 mm[Hg] Dejon Andres MD Work Phone: [facility] 08-06-2023 14:50-0500 Body temperature 97.81 [degF] Dejon Andres MD Work Phone: [facility] 03-18-2023 16:37-0400 Body height 173.7 cm Morteza Derrick DO Work Phone: [facility] 03-18-2023 16:37-0400 Body weight 48.99 kg Morteza Meza DO Work Phone: [facility] 03-18-2023 16:37-0400 Diastolic blood pressure 66 mm[Hg] Morteza Meza DO Work Phone: [facility] 03-18-2023 16:37-0400 Heart rate 84 /min Morteza Meza DO Work Phone: [facility] 03-18-2023 16:37-0400 Respiratory rate 19 /min Morteza Derrick DO Work Phone: [facility] 03-18-2023 16:37-0400 SaO2% (BldA) [Mass fraction] 96 % Morteza Derrick DO Work Phone: [facility] 03-18-2023 16:37-0400 Systolic blood pressure 128 mm[Hg] Morteza Meza DO Work Phone: [facility] 01-31-2023 13:53-0400 Diastolic blood pressure 90 mm[Hg] Morteza Derrick DO Work Phone: [facility] 01-31-2023 13:53-0400 Heart rate 98 /min Morteza Meza DO Work Phone: [facility] 01-31-2023 13:53-0400 Respiratory rate 16 /min Morteza Meza DO Work Phone: [facility] 01-31-2023 13:53-0400 SaO2% (BldA) [Mass fraction] 99 % Morteza Derrick DO Work Phone: [facility] 01-31-2023 13:53-0400 Systolic blood pressure 136 mm[Hg] Morteza Meza DO Work Phone: [facility] 01-31-2023 13:22-0400 Body temperature 97.81 [degF] Morteza Meza DO Work Phone: [facility] 01-31-2023 13:22-0400 Body weight 48.81 kg Morteza Meza DO Work Phone: [facility] 08-23-2022 13:35-0400 Body weight 44.81 kg Morteza Meza DO Work Phone: [facility] 08-23-2022 13:35-0400 Diastolic blood pressure 90 mm[Hg] Morteza Meza DO Work Phone: [facility] 08-23-2022 13:35-0400 Heart rate 110 /min Morteza Meza DO Work Phone: [facility] 08-23-2022 13:35-0400 Respiratory rate 16 /min Morteza Meza DO Work Phone: [facility] 08-23-2022 13:35-0400 SaO2% (BldA) [Mass fraction] 100 % Morteza Meza DO Work Phone: [facility] 08-23-2022 13:35-0400 Systolic blood pressure 150 mm[Hg] Morteza Meza DO Work Phone: [facility] 08-23-2022 13:04-0400 Body temperature 98.4 [degF] Morteza Meza DO Work Phone: [facility] 01-30-2022 14:37-0400 Body height 173.7 cm Morteza Meza DO Work Phone: [facility] 01-30-2022 14:37-0400 Body weight 46.27 kg Morteza Meza DO Work Phone: [facility] 01-30-2022 14:37-0400 Diastolic blood pressure 81 mm[Hg] Morteza Meza DO Work Phone: [facility] 01-30-2022 14:37-0400 Heart rate 101 /min Morteza Meza DO Work Phone: [facility] 01-30-2022 14:37-0400 Respiratory rate 19 /min Morteza Meza DO Work Phone: [facility] 01-30-2022 14:37-0400 SaO2% (BldA) [Mass fraction] 98 % Morteza Meza DO Work Phone: [facility] 01-30-2022 14:37-0400 Systolic blood pressure 132 mm[Hg] Morteza Meza DO Work Phone: [facility] 12-13-2021 13:52-0400 Diastolic blood pressure 68 mm[Hg] Morteza Meza DO Work Phone: [facility] 12-13-2021 13:52-0400 Heart rate 112 /min Morteza Meza DO Work Phone: [facility] 12-13-2021 13:52-0400 Respiratory rate 16 /min Morteza Meza DO Work Phone: [facility] 12-13-2021 13:52-0400 SaO2% (BldA) [Mass fraction] 100 % Morteza Meza DO Work Phone: [facility] 12-13-2021 13:52-0400 Systolic blood pressure 138 mm[Hg] Morteza Meza DO Work Phone: [facility] 02-12-2019 16:55-0400 Body height 170.2 cm Rashida Lange 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 Work Phone: [facility] 02-12-2019 16:55-0400 Body weight 59.24 kg Rashida Skgaligs 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 Work Phone: [facility] 02-12-2019 16:55-0400 Diastolic blood pressure 89 mm[Hg] Rashida Lange 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 Work Phone: [facility] 02-12-2019 16:55-0400 Heart rate 104 /min Rashida Skeggs 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 Work Phone: [facility] 02-12-2019 16:55-0400 SaO2% (BldA) [Mass fraction] 98 % Rashida Lange 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 Work Phone: [facility] 02-12-2019 16:55-0400 Systolic blood pressure 139 mm[Hg] Rashida Lange 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 Work Phone: [facility] 04-18-2017 14:19-0500 Body mass index (BMI) [Ratio] 16.72 kg/m2 [facility] Work Phone: 04-18-2017 14:19-0500 Body weight 49.9 kg [employer] [facility] Work Phone: 04-18-2017 14:19-0500 Diastolic blood pressure 80 mm[Hg] [facility] Work Phone: 04-18-2017 14:19-0500 Heart rate 80 /min [employer] [facility] Work Phone: 04-18-2017 14:19-0500 Systolic blood pressure 110 mm[Hg] [employer] [facility] Work Phone: 10-11-2016 15:34-0400 Body mass index (BMI) [Ratio] 16.42 kg/m2 Erica Holvishasta [facility] Work Phone: 10-11-2016 15:34-0400 Body weight 48.99 kg Erica Holvishasta [facility] Work Phone: 10-11-2016 15:34-0400 Diastolic blood pressure 48 mm[Hg] Erica Holvijuany [facility] Work Phone: 10-11-2016 15:34-0400 Heart rate 92 /min Erica [facility] Work Phone: 10-11-2016 15:34-0400 Respiratory rate 16 /min [facility] Work Phone: 10-11-2016 15:34-0400 Systolic blood pressure 102 mm[Hg] Erica [employer]iles [employer] Work Phone: 01-09-2016 [id number] Body surface area Derived from formula 1.6 m2 Erica [employer]iles [employer] Work Phone: 06-29-2011 11:17-0500 Body height 172.72 cm Erica Aviles [employer] Work Phone: Encounters Encounter Date Encounter Type Care Provider Facility Start: 02-25-2025 ambulatory VINI Rivera ty:[id number] Start: 02-23-2025 ambulatory VINI Rivera ty:[id number] Start: 02-23-2025 End: 02-23-2025 Subsequent hospital visit by physician Vini Mcdonald MD Work Phone: [facility] Comment on above: Myofascial pain synd dane [M79.18] Start: 02-12-2025 End: 02-15-2025 Orders Only Erika Conway PA-C Work Phone: [facility] Comment on above: Myofascial pain synd dane (Primary Dx) Appointment Request Start: 02-04-2025 End: 02-05-2025 Refill Erika Conway PA-C Work Phone: Pain Management Comment on above: Refill Request Start: 01-05-2025 End: 01-05-2025 Subsequent hospital visit by physician Vini Mcdonald MD Work Phone: [facility] Comment on above: 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 [G43.711] Start: 01-05-2025 End: 01-05-2025 Patient encounter procedure Erika Conway PA-C Work Phone: Pain Management Comment on above: Nmgoegl-Gezmd-Jexfz disease (Primary Dx); Chiquis-Danlos syndrome (HCC); Marfan's syndrome (HCC); Myofascial pain syndrome; Fibromyalgia; Migraine, unspecified, without mention of intractable migraine without mention of status migrainosus Start: 01-05-2025 End: 01-05-2025 ambulatory ERIKA CONWAY Facility:[id number] Start: 12-31-2024 ambulatory VINI Rivera ty:[id number] Start: 12-31-2024 End: 12-31-2024 Subsequent hospital visit by physician Vini Mcdonald MD Work Phone: [facility] Comment on above: Myofascial pain synd dane [M79.18], Fibromyalgia [M79.7] Start: 12-30-2024 End: 12-30-2024 Telephone encounter Vini Mcdonald MD Work Phone: Pain Management Start: 12-29-2024 ambulatory VINI Rivera ty:[id number] Start: 12-29-2024 End: 12-29-2024 Subsequent hospital visit by physician Vini Mcdonald MD Work Phone: [facility] Comment on above: Myofascial pain synd dane [M79.18], Fibromyalgia [M79.7] Start: 12-18-2024 End: 12-21-2024 Refill Erika Conway PA-C Work Phone: Pain Management Comment on above: Refill Request Other (LVM to sc hedule appt with pain mgt) Appointment Request Start: 12-09-2024 End: 12-09-2024 Telephone encounter Erika Conway PA-C Work Phone: Pain Management Comment on above: Requesting procedure s Start: 12-04-2024 End: 12-04-2024 E-mail encounter from caregiver Vini Mcdonald MD Work Phone: Pain Management Start: 12-04-2024 End: 12-04-2024 Patient encounter procedure Vini Mcdonald MD Work Phone: Pain Management Comment on above: Appointment Request Start: 11-19-2024 End: 11-19-2024 Refill Erika Conway PA-C Work Phone: Pain Management Comment on above: Refill Request Start: 11-05-2024 ambulatory VINI Rivera ty:[id number] Start: 11-05-2024 End: 11-05-2024 Subsequent hospital visit by physician Vini Mcdonald MD Work Phone: [facility] Comment on above: Myofascial pain synd dane [M79.18] Start: 11-03-2024 ambulatory VINI Rivera ty:[id number] Start: 11-03-2024 End: 11-03-2024 Subsequent hospital visit by physician Vini Mcdonald MD Work Phone: [facility] Comment on above: Myofascial pain synd dane [M79.18], Fibromyalgia [M79.7] Start: 10-26-2024 End: 10-26-2024 ambulatory Vini Mcdonald MD Work Phone: Pain Management Comment on above: pre procedure messag e Start: 10-26-2024 End: 10-26-2024 E-mail encounter from caregiver Vini Mcdonald MD Work Phone: Pain Management Start: 10-15-2024 End: 10-15-2024 Orders Only Erika Conway PA-C Work Phone: Pain Management Comment on above: Myofascial pain synd dane (Primary Dx); Fibromyalgia Start: 10-06-2024 ambulatory VINI Rivera ty:[id number] Start: 10-06-2024 End: 10-06-2024 Subsequent hospital visit by physician Vini Mcdonald MD Work Phone: [facility] Comment on above: Migraine, unspecifie d, without mention of intractable migraine without mention of status migrainosus [G43.909] Start: 09-29-2024 End: 09-29-2024 ambulatory Vini Mcdonald MD Work Phone: Pain Management Comment on above: pre procedure messag e Start: 09-29-2024 End: 09-29-2024 E-mail encounter from caregiver Vini Mcdonald MD Work Phone: Pain Management Start: 09-23-2024 End: 11-23-2024 Follow-up encounter Erika Conway PA-C Work Phone: Pain Management Start: 09-18-2024 End: 09-18-2024 Patient encounter procedure Erika Conway PA-C Work Phone: Pain Management Comment on above: Chiquis-Danlos syndro me (HCC) (Primary Dx); Rfhvjlb-Kkuud-Fbjap disease; Marfan's syndrome (HCC); Migraine, unspecified, without mention of intractable migraine without mention of status migrainosus; Fibromyalgia; Myofascial pain syndrome; 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 Start: 09-18-2024 End: 09-18-2024 ambulatory ERIKA CONWAY Facility:[id number] Start: 09-11-2024 End: 09-11-2024 Refill Erika Conway PA-C Work Phone: Pain Management Comment on above: Refill Request Start: 09-10-2024 ambulatory VINI Rievra ty:[id number] Start: 09-10-2024 End: 09-10-2024 Subsequent hospital visit by physician Vini Mcdonald MD Work Phone: [facility] Comment on above: Myofascial pain synd dane [M79.18] Start: 09-08-2024 ambulatory VINI Rivera ty:[id number] Start: 09-08-2024 End: 09-08-2024 Subsequent hospital visit by physician Vini Mcdonald MD Work Phone: [facility] Comment on above: Myofascial pain synd dane [M79.18] Start: 08-31-2024 End: 08-31-2024 ambulatory Vini Mcdonald MD Work Phone: Pain Management Comment on above: pre procedure messag e Start: 08-31-2024 End: 08-31-2024 E-mail encounter from caregiver Vini Mcdonald MD Work Phone: Pain Management Start: 08-14-2024 End: 08-14-2024 ambulatory Vini Mcdonald MD Work Phone: Pain Management Comment on above: Trigger point inject ions Start: 08-12-2024 End: 08-13-2024 Refill Erika Conway PA-C Work Phone: Pain Management Comment on above: Refill Request Start: 07-16-2024 ambulatory VINI Rivera ty:[id number] Start: 07-16-2024 End: 07-16-2024 Subsequent hospital visit by physician Vini Mcdonald MD Work Phone: [facility] Comment on above: Myofascial pain synd dane [M79.18] Start: 07-14-2024 ambulatory VINI Rivera ty:[id number] Start: 07-14-2024 End: 07-14-2024 Subsequent hospital visit by physician Vini Mcdonald MD Work Phone: [facility] Comment on above: Myofascial pain synd dane [M79.18] Start: 07-07-2024 End: 07-07-2024 Subsequent hospital visit by physician Vini Mcdonald MD Work Phone: [facility] Comment on above: Migraine, unspecifie d, without mention of intractable migraine without mention of status migrainosus [G43.909] Start: 07-07-2024 End: 07-07-2024 ambulatory Vini Mcdonald MD Work Phone: [facility] Comment on above: pre procedure messag e Start: 07-07-2024 End: 07-07-2024 E-mail encounter from caregiver Vini Mcdonald MD Work Phone: [facility] Start: 06-30-2024 End: 06-30-2024 ambulatory Vini Mcdonald MD Work Phone: Pain Management Comment on above: Botox 07/07 Start: 06-23-2024 End: 06-23-2024 Patient encounter procedure Erika Conway PA-C Work Phone: Pain Management Comment on above: Hynijew-Ivsbh-Qezfx disease (Primary Dx); Cihquis-Danlos syndrome; Fibromyalgia; 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; Myofascial pain syndrome Start: 06-23-2024 End: 06-24-2024 ambulatory ERIKA Cris CONWAY Facility:[id number] Start: 06-16-2024 End: 06-16-2024 Refill Erika Conway PA-C Work Phone: Pain Management Comment on above: Refill Request Start: 05-19-2024 End: 05-19-2024 Orders Only Vini Mcdonald MD Work Phone: Pain Management Comment on above: Fibromyalgia (Primar y Dx); Myofascial pain syndrome Myofascial pain synd dane [M79.18] Start: 05-18-2024 End: 05-18-2024 Refill Erika Conway PA-C Work Phone: Pain Management Comment on above: Refill Request Start: 05-12-2024 End: 05-12-2024 Orders Only Vini Mcdonald MD Work Phone: Pain Management Comment on above: Migraine, unspecifie d, without mention of intractable migraine without mention of status migrainosus (Primary Dx) Myofascial pain synd dane [M79.18] Start: 04-17-2024 End: 04-17-2024 Refill Erika Conway PA-C Work Phone: Pain Management Comment on above: Refill Request Start: 04-02-2024 ambulatory VINI Gallardo ty:[id number] Start: 04-02-2024 End: 04-02-2024 Subsequent hospital visit by physician Vini Mcdonald MD Work Phone: [facility] Comment on above: 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 [G43.711] Start: 03-25-2024 End: 03-25-2024 Patient encounter procedure Erika Conway PA-C Work Phone: Pain Management Comment on above: Fibromyalgia (Primar y Dx); Chiquis-Danlos syndrome; Vojpvtu-Uuxvy-Wwzrc disease; 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; 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 Start: 03-25-2024 End: 03-25-2024 ambulatory ERIKA CONWAY Facility:[id number] Start: 03-13-2024 End: 03-16-2024 Telephone encounter Vini Mcdonald MD Work Phone: [facility] Comment on above: Cases needed for TPI 's in May Start: 03-12-2024 ambulatory VINI Rivera ty:[id number] Start: 03-12-2024 End: 03-12-2024 Subsequent hospital visit by physician Vini Mcdonald MD Work Phone: [facility] Comment on above: Myofascial pain synd dane [M79.18] Start: 03-11-2024 End: 03-11-2024 Orders Only Vini Mcdonald MD Work Phone: Pain Management Comment on above: 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 (Primary Dx) Start: 03-10-2024 ambulatory VINI Rivera ty:[id number] Start: 03-10-2024 End: 03-10-2024 Subsequent hospital visit by physician Vini Mcdonald MD Work Phone: [facility] Comment on above: Myofascial pain synd dane [M79.18] Start: 02-24-2024 End: 02-24-2024 Telephone encounter Vini Mcdonald MD Work Phone: [facility] Comment on above: Appointment; Septemb er 17 procedure cancelled rescheduled to 03/12 Start: 02-20-2024 End: 02-21-2024 Refill Vini Mcdonald MD Work Phone: Pain Management Comment on above: Refill Request Start: 02-18-2024 End: 02-18-2024 ambulatory Luisa Pemberton Facility:[facility] Start: 02-11-2024 End: 02-11-2024 Telephone encounter Vini Mcdonald MD Work Phone: Pain Management Comment on above: Botox injections Start: 01-29-2024 End: 01-29-2024 Orders Only Vini Mcdonald MD Work Phone: Pain Management Comment on above: 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 (Primary Dx); Migraine without aura and without status migrainosus, not intractable; Migraine, unspecified, without mention of intractable migraine without mention of status migrainosus Start: 01-20-2024 End: 01-20-2024 ambulatory [facility] Facility:[facility] Start: 01-17-2024 Refill Vini velez MD Work Phone: Pain Management Comment on above: Refill Request Start: 01-15-2024 Orders Only Erika guallpa PA-C Work Phone: Pain Management Comment on above: Myofascial pain synd dane (Primary Dx); Fibromyalgia Start: 01-14-2024 End: 01-14-2024 Subsequent hospital visit by physician Vini Mcdonald MD Work Phone: [facility] Comment on above: Fibromyalgia [M79.7] Start: 01-09-2024 End: 01-09-2024 Subsequent hospital visit by physician Vini Mcdonald MD Work Phone: [facility] Comment on above: Fibromyalgia [M79.7] Start: 12-23-2023 End: 12-23-2023 Emergency department patient visit [facility] Facility:[facility] Start: 12-18-2023 End: 12-18-2023 Office outpatient visit 25 minutes Vini Mcdonald MD Work Phone: Pain Management Comment on above: Chronic pain syndrom e (Primary Dx); Fibromyalgia; Chiquis-Danlos syndrome; Oofeksy-Iepge-Dmhsl disease; 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; Other chronic pain Start: 11-25-2023 Refill Erika guallpa PA-C Work Phone: Pain Management Comment on above: Refill Request Start: 11-14-2023 End: 11-14-2023 Subsequent hospital visit by physician Dejon Andres MD Work Phone: [facility] Comment on above: Migraine, unspecifie d, without mention of intractable migraine without mention of status migrainosus [G43.909] Start: 10-30-2023 Telephone encounter Erika Conway PA-C Work Phone: Pain Management Comment on above: Resubmission for bot ox approval Start: 10-29-2023 End: 10-29-2023 Patient encounter procedure Erika Conway PA-C Work Phone: Pain Management Comment on above: Fibromyalgia (Primar y Dx); 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; Chiquis-Danlos syndrome; Yzgdfse-Ogjrd-Zsbgo disease Start: 10-29-2023 Telephone encounter Erika Conway PA-C Work Phone: [facility] Comment on above: Procedure denied Start: 10-25-2023 Telephone encounter Erika Conway PA-C Work Phone: [facility] Comment on above: November 11 procedure; Op ened In Error Start: 10-24-2023 End: 10-24-2023 Refill Erika Conway PA-C Work Phone: Pain Management Comment on above: Refill Request Myofascial pain synd dane [M79.18] Start: 10-22-2023 End: 10-22-2023 Subsequent hospital visit by physician Dejon Andres MD Work Phone: [facility] Comment on above: Myofascial pain synd dane [M79.18] Start: 09-19-2023 End: 09-19-2023 Patient encounter procedure Erika Conway PA-C Work Phone: Pain Management Comment on above: Fibromyalgia (Primar y Dx); 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; Chiquis-Danlos syndrome; Pasycpw-Lqnjb-Ixxrs disease; Chronic pain syndrome; Myofascial pain syndrome Start: 09-03-2023 End: 09-03-2023 Orders Only Dejon Andres MD Work Phone: Pain Management Comment on above: Migraine without sta tus migrainosus, not intractable, unspecified migraine type (Primary Dx) Fibromyalgia [M79.7] Start: 09-02-2023 Refill Erika guallpa PA-C Work Phone: Pain Management Comment on above: Refill Request Start: 08-29-2023 End: 08-29-2023 Subsequent hospital visit by physician Dejon Andres MD Work Phone: [facility] Comment on above: Fibromyalgia [M79.7] Start: 08-12-2023 End: 08-12-2023 Admission to same day surgery center [facility] Start: 08-12-2023 End: 08-12-2023 ambulatory Mohit Henley [facility] Work Phone: Start: 08-08-2023 End: 08-08-2023 ambulatory Luisa Reeves Nilay Facility:[facility] Start: 08-06-2023 End: 08-06-2023 Subsequent hospital visit by physician Dejon Andres MD Work Phone: [facility] Comment on above: 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 [G43.711] Start: 07-25-2023 Refill Erika guallpa PA-C Work Phone: Pain Management Comment on above: Refill Request Start: 05-05-2023 Refill Morteza Crocker DO Work Phone: Pain Management Comment on above: Refill Request Start: 04-23-2023 Telephone encounter Demian grayo 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 Work Phone: Pain Management Comment on above: Other (Virtual V isit Pre Check In) Other (Scheduled with Dr Andres) Start: 03-27-2023 ambulatory Morteza Crocker DO Work Phone: Pain Management Comment on above: Botox Start: 03-19-2023 Telephone encounter Morteza Meza DO Work Phone: [facility] Comment on above: Botox Injection Start: 03-18-2023 End: 03-24-2023 Patient encounter procedure Morteza Meza DO Work Phone: Pain Management Comment on above: Chronic pain syndrom e (Primary Dx); 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; 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; Other chronic pain; Chiquis-Danlos syndrome; Marfan's syndrome; POTS (postural orthostatic tachycardia syndrome); Fibromyalgia; Migraine variant; Myofascial pain syndrome; Zezhate-Eqmmu-Wnsyp disease; Syxhpio-Guglr-Jkiqu syndrome Start: 02-27-2023 Orders Only Morteza Crocker DO Work Phone: Pain Management Comment on above: Myofascial pain synd dane (Primary Dx) Start: 02-22-2023 End: 02-22-2023 ambulatory Paola Falcon APRN.BROILER SUPERVISOR Work Phone: Pain [facility] Comment on above: Other chronic pain ( Primary Dx); Fibromyalgia; 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; Chiquis-Danlos syndrome; Chronic pain syndrome; Vaqoikb-Wyjpy-Wxtiz syndrome; 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; Migraine variant; Myofascial pain syndrome; POTS (postural orthostatic tachycardia syndrome); Marfan's syndrome; Yiylpkq-Hqzou-Oizec disease Start: 02-22-2023 End: 02-22-2023 Telemedicine consultation with patient Paola Falcon APRN.BROILER SUPERVISOR Work Phone: [facility] Start: 02-22-2023 Telephone encounter Morteza Meza DO Work Phone: [facility] Comment on above: Verified procedure o n Feb 27 Start: 02-21-2023 ambulatory [facility] Comment on above: SOAPP Start: 02-21-2023 E-mail encounter micah cunningham caregiver [facility] Start: 02-21-2023 Telephone encounter Paola rodriguez APRN.BROILER SUPERVISOR Work Phone: Pain Management Start: 02-20-2023 Telephone encounter Morteza Meza DO Work Phone: MR PAIN MANAGEMENT Comment on above: Case Needed; Orders Start: 01-31-2023 End: 01-31-2023 Orders Only Morteza Meza DO Work Phone: Pain Management Comment on above: Migraine without aur a and with status migrainosus, not intractable (Primary Dx); Migraine with aura, intractable, without status migrainosus Migraine variant [G4 3.809], 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 [G43.711] Start: 01-23-2023 End: 01-23-2023 ambulatory Demian Shravan 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 Work Phone: Pain Management Comment on above: Other chronic pain ( Primary Dx); Fibromyalgia; 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; Chiquis-Danlos syndrome; 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; Chronic pain syndrome Start: 01-23-2023 End: 01-23-2023 Telemedicine consultation with patient Demian Shravan 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 Work Phone: [facility] Start: 12-19-2022 End: 12-19-2022 ambulatory Demian Shravan 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 Work Phone: Pain Management Comment on above: Other chronic pain ( Primary Dx); Fibromyalgia; 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; Chiquis-Danlos syndrome; 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; Chronic pain syndrome Start: 12-19-2022 End: 12-19-2022 Telemedicine consultation with patient Demain Shravan 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 Work Phone: [facility] Start: 12-13-2022 ambulatory [facility] Provider Pain Manag ement Comment on above: Soapp Start: 12-13-2022 E-mail encounter fro m caregiver [facility] Provider [facility] Start: 11-27-2022 End: 11-27-2022 ambulatory Demian Shravan 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 Work Phone: Pain Management Comment on above: Other chronic pain ( Primary Dx); Fibromyalgia; 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; Chiquis-Danlos syndrome; Migraine variant; 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; Chronic pain syndrome Start: 11-27-2022 End: 11-27-2022 Telemedicine consultation with patient Demian Forman APRN.BROILER SUPERVISOR Work Phone: [facility] Start: 10-19-2022 ambulatory Demian Forman APRN.BROILER SUPERVISOR Work Phone: Pain Management Comment on above: Botox Start: 10-19-2022 E-mail encounter fro m caregiver Demian Forman APRN.BROILER SUPERVISOR Work Phone: [facility] Start: 10-17-2022 Orders Only Demian Forman APRN.BROILER SUPERVISOR Work Phone: Pain Management Comment on above: 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 (Primary Dx); Migraine variant Start: 2022 Telephone encounter Demian crystal APRN.BROILER SUPERVISOR Work Phone: Pain Management Comment on above: Clinical Esthetician - O ther Start: 10-10-2022 End: 10-10-2022 ambulatory Demian Forman APRN.BROILER SUPERVISOR Work Phone: Pain Management Comment on above: Other chronic pain ( Primary Dx); 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; Fibromyalgia; Migraine variant Start: 10-10-2022 End: 10-10-2022 Telemedicine consultation with patient Demian Forman APRN.BROILER SUPERVISOR Work Phone: [facility] Start: 09-12-2022 End: 09-12-2022 ambulatory Demian Forman APRN.BROILER SUPERVISOR Work Phone: Pain Management Comment on above: Other chronic pain ( Primary Dx); 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 Start: 08-23-2022 End: 08-23-2022 Subsequent hospital visit by physician Morteza Meza DO Work Phone: MR PAIN MANAGEMENT Comment on above: Myofascial pain synd dane [M79.18] Start: 08-21-2022 End: 08-21-2022 ambulatory Demian Shravan 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 Work Phone: Pain Management Comment on above: Other chronic pain ( Primary Dx); 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; Fibromyalgia; Migraine variant; Chiquis-Danlos syndrome; Chronic pain syndrome Start: 08-21-2022 End: 08-21-2022 Telemedicine consultation with patient Demian Shravan 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 Work Phone: [employer] Start: 08-01-2022 Orders Only Morteza Crocker DO Work Phone: Pain Management Comment on above: Myofascial pain synd dane (Primary Dx) Start: 07-24-2022 Telephone encounter Morteza Meza DO Work Phone: MR PAIN MANAGEMENT Comment on above: Scheduling Procedure Start: 07-10-2022 Orders Only Demian Forman 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 Work Phone: Pain Management Comment on above: 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 (Primary Dx) Start: 07-03-2022 End: 07-03-2022 ambulatory Demian Shravan 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 Work Phone: Pain Management Comment on above: Other chronic pain ( Primary Dx); 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; Fibromyalgia; Migraine variant; Chiquis-Danlos syndrome; Chronic pain syndrome Start: 07-03-2022 End: 07-03-2022 Telemedicine consultation with patient Demian Shravan 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 Work Phone: [employer] Start: 06-06-2022 Telephone encounter Demian crystal APRN.BROILER SUPERVISOR Work Phone: Pain Management Comment on above: Orders Start: 05-07-2022 End: 05-07-2022 ambulatory Demian Shravan 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 Work Phone: Pain Management Comment on above: Other chronic pain ( Primary Dx); 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; Fibromyalgia; Migraine variant; Chronic pain syndrome Start: 05-07-2022 End: 05-07-2022 Telemedicine consultation with patient Demian Forman APRN.BROILER SUPERVISOR Work Phone: [employer] Start: 04-26-2022 Orders Only Morteza Marco Antonio Mónica haines DO Work Phone: Pain Management Comment on above: Migraine without aur a and with status migrainosus, not intractable (Primary Dx); Migraine without aura, intractable, without status migrainosus Start: 04-25-2022 Orders Only Morteza Crocker DO Work Phone: Pain Management Comment on above: Myofascial pain synd dane (Primary Dx) Migraine without aur a and with status migrainosus, not intractable (Primary Dx); Fibromyalgia Start: 04-20-2022 End: 04-20-2022 ambulatory Demian Shravan 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 Work Phone: Pain Management Comment on above: Fibromyalgia (Primar y Dx); 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; Chronic pain syndrome; 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 Start: 04-20-2022 End: 04-20-2022 Telemedicine consultation with patient Demian Forman APRN.BROILER SUPERVISOR [facility] [employer] Start: 02-23-2022 End: 02-23-2022 ambulatory Demian Shravan 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 Work Phone: Pain Management Comment on above: Fibromyalgia (Primar y Dx); 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; Chronic pain syndrome; 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 Start: 02-23-2022 End: 02-23-2022 Telemedicine consultation with patient Demian Moffetto 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 [facility] [employer] Start: 01-30-2022 End: 01-30-2022 Patient encounter procedure Morteza Meza DO Work Phone: Pain Management Comment on above: Nalqkwz-Rvjmj-Mljmn syndrome (Primary Dx); POTS (postural orthostatic tachycardia syndrome); Myofascial pain syndrome Start: 01-02-2022 End: 01-02-2022 ambulatory Demian Forman JAIR Work Phone: Pain Management Comment on above: Chronic pain syndrom e (Primary Dx); Migraine variant; Fibromyalgia; Myofascial pain syndrome; 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 Start: 01-02-2022 End: 01-02-2022 Telemedicine consultation with patient Demian Forman APRENA Work Phone: [facility] Start: 12-13-2021 Telephone encounter Morteza Meza DO Work Phone: MR PAIN MANAGEMENT Comment on above: UTI Start: 12-13-2021 End: 12-13-2021 Subsequent hospital visit by physician Morteza Meza DO Work Phone: MR PAIN MANAGEMENT Comment on above: Myofascial pain synd dane [M79.18] Start: 12-08-2021 End: 12-08-2021 Office outpatient visit 25 minutes Rashida Lange APRN.CNP Work Phone: Pain Management Comment on above: Chronic pain syndrom e (Primary Dx); Myofascial pain syndrome; Fibromyalgia; 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; Marfan's syndrome; Ashiylt-Knlyz-Pgpwb disease; Chiquis-Danlos syndrome Start: 11-22-2021 Chart abstracting Rashida Lange APRN.CNP Work Phone: Pain Management Start: 11-15-2021 End: 11-15-2021 Subsequent hospital visit by physician Demian Forman APRN.CNP Work Phone: [facility] Comment on above: VIRTUAL Start: 10-18-2021 End: 10-18-2021 Subsequent hospital visit by physician Morteza Meza Work Phone: [facility] Comment on above: MYOFASICAL PAIN SYND DANE Start: 10-11-2021 End: 10-11-2021 Subsequent hospital visit by physician Morteza Meza Work Phone: [facility] Comment on above: MYOFASCIAL PAIN SYND DANE Start: 09-20-2021 End: 09-20-2021 Subsequent hospital visit by physician Demian Manning APRN.CNP Work Phone: [facility] Comment on above: VIRTUAL Start: 04-23-2005 Chart abstracting Nurse Valerie evans Wstr Work Phone: Gastroenterology Procedures Date Procedure Procedure Detail Performing Clinician Start: 02-23-2025 End: 02-23-2025 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 trigger point 3/> muscles Vini Mcdonald MD Work Phone: Start: 01-05-2025 End: 01-05-2025 Chemodervate facial/trigem/cerv musc migraine Vini Mcdonald MD Work Phone: Start: 12-31-2024 End: 12-31-2024 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 trigger point 3/> muscles Vini Mcdonald MD Work Phone: Start: 12-29-2024 End: 12-29-2024 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 trigger point 3/> muscles Vini Mcdonald MD Work Phone: Start: 11-05-2024 End: 11-05-2024 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 trigger point 3/> muscles Vini Mcdonald MD Work Phone: Start: 11-03-2024 End: 11-03-2024 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 trigger point 3/> muscles Vini Mcdonald MD Work Phone: Start: 09-10-2024 End: 09-10-2024 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 trigger point 3/> muscles Vini Mcdonald MD Work Phone: Start: 09-08-2024 End: 09-08-2024 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 trigger point 3/> muscles Vini Mcdonald MD Work Phone: Start: 07-16-2024 End: 07-16-2024 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 trigger point 3/> muscles Vini Mcdonald MD Work Phone: Start: 07-14-2024 End: 07-14-2024 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 trigger point 3/> muscles Vini Mcdonald MD Work Phone: Start: 05-19-2024 End: 05-19-2024 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 trigger point 3/> muscles Vini Mcdonald MD Work Phone: Start: 05-12-2024 End: 05-12-2024 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 trigger point 3/> muscles Vini Mcdonald MD Work Phone: Start: 03-12-2024 End: 03-12-2024 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 trigger point 3/> muscles Vini Mcdonald MD Work Phone: Start: 03-10-2024 End: 03-10-2024 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 trigger point 3/> muscles Vini Mcdonald MD Work Phone: Start: 01-14-2024 End: 01-14-2024 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 trigger point 3/> muscles Vini Mcdonald MD Work Phone: Start: 01-09-2024 End: 01-09-2024 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 trigger point 3/> muscles Vini Mcdonald MD Work Phone: Start: 10-24-2023 End: 10-24-2023 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 trigger point 3/> muscles Dejon Andres MD Work Phone: Start: 10-22-2023 End: 10-22-2023 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 trigger point 3/> muscles Dejon Andres MD Work Phone: Start: 09-03-2023 End: 09-03-2023 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 trigger point 3/> muscles Dejon Andres MD Work Phone: Start: 08-29-2023 End: 08-29-2023 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 trigger point 3/> muscles Dejon Andres MD Work Phone: Start: 08-12-2023 Myringotomy,Tubes (Bilateral) Start: 08-06-2023 End: 08-06-2023 Chemodervate facial/trigem/cerv musc migraine Dejon Andres MD Work Phone: Start: 01-31-2023 End: 01-31-2023 Chemodervate facial/trigem/cerv musc migraine Morteza Meza DO Work Phone: Start: 08-23-2022 End: 08-23-2022 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 trigger point 3/> muscles Morteza Meza DO Work Phone: Start: 04-18-2017 End: 04-18-2017 Documentation of current medications May Sarha Start: 04-18-2017 End: 04-18-2017 Follow Up Appt 6 months Anita ward PA-C Work Phone: Start: 04-18-2017 End: 04-18-2017 PFM Anita Corley PA-C Work Phone: Start: 10-11-2016 End: 10-11-2016 Dietary management education, guidance, and counseling Erica Art Start: 10-11-2016 End: 10-11-2016 Documentation of current medications Erica Art Start: 10-11-2016 End: 10-11-2016 Follow Up Appt 6 months Levi Florez MD Start: 10-11-2016 End: 10-11-2016 MMM Levi Florez MD Start: 01-09-2016 End: 01-09-2016 Ecg routine ecg w/least 12 lds w/i&r Anita Corley PA-C Work Phone: Start: 01-09-2016 End: 01-09-2016 Echocardiography Anita Corley PA-C Work Phone: Start: 01-09-2016 End: 01-09-2016 Follow Up Appt 9 months Anita ward PA-C Work Phone: Start: 01-09-2016 End: 01-09-2016 PFM Anita Corley PA-C Work Phone: Start: 06-24-2015 End: 01-03-2016 Echocardiography Levi Florez MD Start: 06-24-2015 End: 06-24-2015 Follow Up Appt 6 months Levi Florez MD Start: 06-24-2015 End: 06-24-2015 MMM Levi Florez MD Start: 07-07-2014 End: 07-08-2014 Documentation [...] Levi Florez MD Start: 12-30-2013 End: 12-30-2013 MMM Levi Florez MD Start: 02-19-2013 End: 06-16-2014 Echocardiography Anita Corley PA-C Work Phone: Start: 02-19-2013 End: 02-19-2013 Follow Up Appt 6 months Anita ward PA-C Work Phone: Start: 02-19-2013 End: 02-19-2013 PFM Anita Corley PA-C Work Phone: Start: 08-14-2012 End: 02-10-2013 Ecg routine ecg w/least 12 lds w/i&r Levi Florez MD Start: 08-14-2012 End: 08-14-2012 Follow Up Appt 6 months Levi Florez MD Start: 08-14-2012 End: 02-10-2013 MMM Levi Florez MD Start: 02-01-2012 End: 02-01-2012 Ecg routine ecg w/least 12 lds w/i&r Levi Florez MD Start: 02-01-2012 End: 02-10-2013 Echocardiography Levi Florez MD Start: 02-01-2012 End: 02-10-2013 Follow Up Appt 6 months Levi Florez MD Start: 06-29-2011 End: 06-29-2011 Follow Up Appt 6 months Levi Florez MD Plan of Treatment Date Care Activity Detail Author Start: 03-19-2025 End: 03-19-2025 Patient encounter procedure Pain Management Comment on above: Follow Up Start: 02-25-2025 End: 02-25-2025 Admission to same day surgery center 02/25/2025 2:45 PM EDT - 02/25/2025 3:00 PM EDT Surgery PAIN KANG PROCEDURES [address] [facility] [place] [address] Vini Mcdonald MD [address] [place] [address] INJECTION TRIGGER POINT THREE OR MORE MUSCLES (mid/lower back x 1 visit) PAIN KANG PROCEDURES Comment on above: INJECTION TRIGGER POINT THREE OR MORE MU SCLES (mid/lower back x 1 visit) Start: 02-25-2025 End: 09-18-2025 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 trigger point 3/> muscles INJECTION TRIGGER POINT THREE OR MORE MUSCLES Myofascial pain syndrome 02/25/2025 2:45 PM EDT MR NICOLSAA HUMPHREY Start: 02-25-2025 Subsequent hospital visit by physician 02/25/2025 2:45 PM EDT Hospital Encounter PAIN KANG PROCEDURES [address] [place] [address] Vini Mcdonald MD [address] [place] [address] Myofascial pain syndrome [M79.18] PAIN KANG PROCEDURES Comment on above: Myofascial pain syndrome [M79.18] Start: 02-23-2025 End: 02-23-2025 Admission to same day surgery center 02/23/2025 4:00 PM EDT - 02/23/2025 4:30 PM EDT Surgery PAIN KANG PROCEDURES [address] [place] [address] Vini Mcdonald MD [address] [place] [address] INJECTION TRIGGER POINT THREE OR MORE MUSCLES (neck/upper back x 1 visit) PAIN KANG PROCEDURES Comment on above: INJECTION TRIGGER POINT THREE OR MORE MU SCLES (neck/upper back x 1 visit) Start: 02-23-2025 End: 02-23-2025 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 trigger point 3/> muscles INJECTION TRIGGER POINT THREE OR MORE MUSCLES Myofascial pain syndrome 02/23/2025 4:00 PM EDT MR NICOLASA HUMPHREY Start: 02-23-2025 Subsequent hospital visit by physician 02/23/2025 4:00 PM EDT Hospital Encounter PAIN KANG PROCEDURES [address] [place] [address] Vini Mcdonald MD [address] [place] [address] Myofascial pain syndrome [M79.18] PAIN KANG PROCEDURES Comment on above: Myofascial pain syndrome [M79.18] Start: 02-08-2025 Influenza vaccination [facility] Start: 01-05-2025 End: 01-05-2025 Admission to same day surgery center 01/05/2025 3:30 PM EDT - 01/05/2025 4:00 PM EDT Surgery PAIN KANG PROCEDURES [address] [place] [address] Vini Mcdonald MD [address] [place] [address] CHEMODENERVATION OF MUSCLE(S) INNERVATED BY FACIAL, TRIGEMINAL, CERVICAL SPINAL AND ACCESSORY NERVES, BILATERAL PAIN KANG PROCEDURES Comment on above: CHEMODENERVATION OF MUSCLE(S) INNERVATED BY FACIAL, TRIGEMINAL, CERVICAL SPINAL AND ACCESSORY NERVES, BILATERAL Start: 01-05-2025 Subsequent hospital visit by physician 01/05/2025 3:30 PM EDT Hospital Encounter PAIN KANG PROCEDURES [address] [place] [address] Vini Mcdonald MD [address] [place] [address] 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 [G43.711] PAIN KANG PROCEDURES Comment on above: Intractable chronic migraine without aur a and with status migrainosus [G43.711] Start: 01-05-2025 End: 01-05-2025 Chemodervate facial/trigem/cerv musc migraine MR PAIN KANG Start: 01-05-2025 End: 01-05-2025 Patient encounter procedure 01/05/2025 2:45 PM EDT Office Visit Pain Management [address] [place] [address] Erika Conway PA-C [address] [place] [address] Follow up ok gaudencio Diana Pain Management Comment on above: Follow up ok gaudencio Diana Start: 12-31-2024 End: 12-31-2024 Admission to same day surgery center 12/31/2024 3:30 PM EDT - 12/31/2024 4:00 PM EDT Surgery PAIN KANG PROCEDURES [address] [place] [address] Vini Mcdonald MD [address] [place] [address] INJECTION TRIGGER POINT THREE OR MORE MUSCLES (mid/lower back) PAIN KANG PROCEDURES Comment on above: INJECTION TRIGGER POINT THREE OR MORE MU SCLES (mid/lower back) Start: 12-31-2024 End: 12-31-2024 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 trigger point 3/> muscles INJECTION TRIGGER POINT THREE OR MORE MUSCLES Myofascial pain syndrome Fibromyalgia 12/31/2024 3:30 PM EDT MR NICOLASA HUMPHREY Start: 12-31-2024 Subsequent hospital visit by physician 12/31/2024 3:30 PM EDT Hospital Encounter PAIN KANG PROCEDURES [address] [place] [address] Vini Mcdonald MD [address] [place] [address] Myofascial pain syndrome [M79.18], Fibromyalgia [M79.7] PAIN KANG PROCEDURES Comment on above: Myofascial pain syndrome [M79.18], Fibro myalgia [M79.7] Start: 12-29-2024 End: 12-29-2024 Admission to same day surgery center 12/29/2024 3:30 PM EDT - 12/29/2024 4:00 PM EDT Surgery PAIN KANG PROCEDURES [address] [place] [address] Vini Mcdonald MD [address] [place] [address] INJECTION TRIGGER POINT THREE OR MORE MUSCLES (neck/upper back) PAIN KANG PROCEDURES Comment on above: INJECTION TRIGGER POINT THREE OR MORE MU SCLES (neck/upper back) Start: 12-29-2024 End: 12-29-2024 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 trigger point 3/> muscles INJECTION TRIGGER POINT THREE OR MORE MUSCLES Myofascial pain syndrome Fibromyalgia 12/29/2024 3:30 PM EDT MR NICOLASA HUMPHREY Start: 12-29-2024 Subsequent hospital visit by physician 12/29/2024 3:30 PM EDT Hospital Encounter PAIN KANG PROCEDURES [address] [place] [address] Vini Mcdonald MD [address] [place] [address] Myofascial pain syndrome [M79.18], Fibromyalgia [M79.7] PAIN KANG PROCEDURES Comment on above: Myofascial pain syndrome [M79.18], Fibro myalgia [M79.7] Start: 11-05-2024 End: 11-05-2024 Admission to same day surgery center 11/05/2024 3:30 PM EDT - 11/05/2024 4:00 PM EDT Surgery PAIN KANG PROCEDURES [address] [place] [address] Vini Mcdonald MD [address] [place] [address] INJECTION TRIGGER POINT THREE OR MORE MUSCLES PAIN KANG PROCEDURES Comment on above: INJECTION TRIGGER POINT THREE OR MORE MU SCLES Start: 11-05-2024 End: 11-05-2024 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 trigger point 3/> muscles INJECTION TRIGGER POINT THREE OR MORE MUSCLES Myofascial pain syndrome 11/05/2024 3:30 PM EDT MR NICOLASA HUMPHREY Start: 11-05-2024 Subsequent hospital visit by physician 11/05/2024 3:30 PM EDT Hospital Encounter PAIN KANG PROCEDURES [address] [place] [address] Vini Mcdonald MD [address] [place] [address] Myofascial pain syndrome [M79.18] PAIN KANG PROCEDURES Comment on above: Myofascial pain syndrome [M79.18] Start: 11-03-2024 End: 11-03-2024 Admission to same day surgery center 11/03/2024 3:30 PM EDT - 11/03/2024 4:00 PM EDT Surgery PAIN KANG PROCEDURES [address] [place] [address] Vini Mcdonald MD [address] [place] [address] INJECTION TRIGGER POINT THREE OR MORE MUSCLES PAIN KANG PROCEDURES Comment on above: INJECTION TRIGGER POINT THREE OR MORE MU SCLES Start: 11-03-2024 End: 11-03-2024 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 trigger point 3/> muscles INJECTION TRIGGER POINT THREE OR MORE MUSCLES Myofascial pain syndrome Fibromyalgia 11/03/2024 3:30 PM EDT MR PAIN KANG Start: 11-03-2024 Subsequent hospital visit by physician 11/03/2024 3:30 PM EDT Hospital Encounter PAIN KANG PROCEDURES [address] [place] [address] Vini Mcdonald MD [address] [place] [address] Myofascial pain syndrome [M79.18], Fibromyalgia [M79.7] PAIN KANG PROCEDURES Comment on above: Myofascial pain syndrome [M79.18], Fibro myalgia [M79.7] Start: 10-06-2024 End: 10-06-2024 Admission to same day surgery center 10/06/2024 3:30 PM EDT - 10/06/2024 4:00 PM EDT Surgery PAIN KANG PROCEDURES [address] [place] [address] Vini Mcdonald MD [address] [place] [address] CHEMODENERVATION OF MUSCLE(S) INNERVATED BY FACIAL, TRIGEMINAL, CERVICAL SPINAL AND ACCESSORY NERVES, BILATERAL PAIN KANG PROCEDURES Comment on above: CHEMODENERVATION OF MUSCLE(S) INNERVATED BY FACIAL, TRIGEMINAL, CERVICAL SPINAL AND ACCESSORY NERVES, BILATERAL Start: 10-06-2024 End: 10-06-2024 Chemodervate facial/trigem/cerv musc migraine CHEMODENERVATION OF MUSCLE(S) INNERVATED BY FACIAL, TRIGEMINAL, CERVICAL SPINAL AND ACCESSORY NERVES, BILATERAL Migraine, unspecified, without mention of intractable migraine without mention of status migrainosus 10/06/2024 3:30 PM EDT MR NICOLASA HUMPHREY Start: 10-06-2024 Subsequent hospital visit by physician 10/06/2024 3:30 PM EDT Hospital Encounter PAIN KANG PROCEDURES [address] [place] [address] Vini Mcdonald MD [address] [facility] [place] [address] Migraine, unspecified, without mention of intractable migraine without mention of status migrainosus [G43.909] PAIN KANG PROCEDURES Comment on above: Migraine, unspecified, without mention o f intractable migraine without mention of status migrainosus [G43.909] Start: 09-18-2024 End: 12-18-2024 TOXASSURE FLEX 23, URINE TOXASSURE FLEX 23, URINE Lab Routine Myofascial pain syndrome Migraine, unspecified, without mention of intractable migraine without mention of status migrainosus Fibromyalgia 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 Expected: 09/18/2024, Expires: 12/18/2024 [facility] Work Phone: Comment on above: Expected: 09/18/2024, Expires: Start: 09-18-2024 End: 09-18-2024 Patient encounter procedure 09/18/2024 1:30 PM EDT Office Visit Pain Management [address] [place] [address] Erika Conway PA-C [address] [place] [address] Follow Up Pain Management Comment on above: Follow Up Start: 09-10-2024 End: 09-10-2024 Admission to [facility] 09/10/2024 3:30 PM EDT - 09/10/2024 4:00 PM EDT Surgery [facility] PROCEDURES [address] [place] [address] Vini Mcdonald MD [address] [place] [address] INJECTION TRIGGER POINT THREE OR MORE MUSCLES (lower back) [facility] PROCEDURES Comment on above: INJECTION TRIGGER POINT THREE OR MORE MU SCLES (lower back) Start: 09-10-2024 End: 09-10-2024 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 trigger point 3/> muscles INJECTION TRIGGER POINT THREE OR MORE MUSCLES Myofascial pain syndrome 09/10/2024 3:30 PM EDT PAIN [facility]ANG Start: 09-10-2024 Subsequent hospital visit by physician 09/10/2024 3:30 PM EDT Hospital Encounter [facility] PROCEDURES [address] [place] [address] Vini Mcdonald MD [address] [place] [address] Myofascial pain syndrome [M79.18] [facility]ANG PROCEDURES Comment on above: Myofascial pain syndrome [M79.18] Start: 09-08-2024 End: 09-08-2024 Admission to same day surgery center 09/08/2024 3:30 PM EDT - 09/08/2024 4:00 PM EDT Surgery PAIN [facility]ANG PROCEDURES [address] [place] [address] Vini Mcdonald MD [address] [place] [address] INJECTION TRIGGER POINT THREE OR MORE MUSCLES (neck/upper back) [facility]ANG PROCEDURES Comment on above: INJECTION TRIGGER POINT THREE OR MORE MU SCLES (neck/upper back) Start: 09-08-2024 End: 09-08-2024 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 trigger point 3/> muscles INJECTION TRIGGER POINT THREE OR MORE MUSCLES Myofascial pain syndrome 09/08/2024 3:30 PM EDT PAIN KANG Start: 09-08-2024 Subsequent hospital visit by physician 09/08/2024 3:30 PM EDT Hospital Encounter [facility] PROCEDURES [address] [place] [address] Vini Mcdonald MD [address] [place] [address] Myofascial pain syndrome [M79.18] PAIN [facility]ANG PROCEDURES Comment on above: Myofascial pain syndrome [M79.18] Start: 07-16-2024 End: 07-16-2024 Admission to same day surgery center 07/16/2024 3:00 PM EST - 07/16/2024 3:30 PM EST Surgery PAIN [facility]ANG PROCEDURES [address] [place] [address] Vini Mcdonald MD [address] [place] [address] INJECTION TRIGGER POINT THREE OR MORE MUSCLES (Lower) PAIN [facility]ANG PROCEDURES Comment on above: INJECTION TRIGGER POINT THREE OR MORE MU SCLES (Lower) Start: 07-16-2024 End: 07-16-2024 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 trigger point 3/> muscles INJECTION TRIGGER POINT THREE OR MORE MUSCLES Myofascial pain syndrome 07/16/2024 3:00 PM EST MR PAIN KANG Start: 07-16-2024 Subsequent hospital visit by physician 07/16/2024 3:00 PM EST Hospital Encounter PA[facility]ANG PROCEDURES [address] [place] [address] Vini Mcdonald MD [address] [place] [address] Myofascial pain syndrome [M79.18] PA[facility]ANG PROCEDURES Comment on above: Myofascial pain syndrome [M79.18] Start: 07-14-2024 End: 07-14-2024 Admission to same day surgery center 07/14/2024 3:00 PM EST - 07/14/2024 3:30 PM EST Surgery PAIN [facility]ANG PROCEDURES [address] [place] [address] Vini Mcdonald MD [address] [place] [address] INJECTION TRIGGER POINT THREE OR MORE MUSCLES (upper back) PAIN [facility]ANG PROCEDURES Comment on above: INJECTION TRIGGER POINT THREE OR MORE MU SCLES (upper back) Start: 07-14-2024 End: 07-14-2024 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 trigger point 3/> muscles INJECTION TRIGGER POINT THREE OR MORE MUSCLES Myofascial pain syndrome 07/14/2024 3:00 PM EST MR PAIN KANG Start: 07-14-2024 Subsequent hospital visit by physician 07/14/2024 3:00 PM EST Hospital Encounter PAIN [facility]ANG PROCEDURES [address] [place] [address] Vini Mcdonald MD [address], [place] [id number] Myofascial pain syndrome [M79.18] PAIN [facility]ANG PROCEDURES Comment on above: Myofascial pain syndrome [M79.18] Start: 07-07-2024 End: 07-07-2024 Admission to same day surgery center 07/07/2024 3:30 PM EST - 07/07/2024 4:00 PM EST Surgery PAIN [facility] PROCEDURES [address] [place] [address] Vini Mcdonald MD [address] [place], [place] [id number] CHEMODENERVATION OF MUSCLE (S), MUSCLE (S) INNERVATED BY FACIAL NERVE PAIN [facility]ANG PROCEDURES Comment on above: CHEMODENERVATION OF MUSCLE (S), MUSCLE ( S) INNERVATED BY FACIAL NERVE Start: 07-07-2024 End: 07-07-2024 Chemodnrvtj musc musc innervated facial nrv unil MR PAIN KANG Start: 07-07-2024 Subsequent hospital visit by physician 07/07/2024 3:30 PM EST Hospital Encounter PAIN [facility] PROCEDURES [address] [place] [address] Vini Mcdonald MD [address] [place] [address] Migraine, unspecified, without mention of intractable migraine without mention of status migrainosus [G43.909] PAIN [facility]ANG PROCEDURES Comment on above: Migraine, unspecified, without mention o f intractable migraine without mention of status migrainosus [G43.909] Start: 06-23-2024 End: 06-23-2024 Patient encounter procedure 06/23/2024 1:00 PM EST Office Visit Pain Management [address] [place] [address] Erika Conway PA-C [address] [place] [address] Follow Up Pain Management Comment on above: Follow Up Start: 05-19-2024 End: 05-19-2024 Admission to same day surgery center 05/19/2024 3:30 PM EST - 05/19/2024 4:00 PM EST Surgery PAIN [facility] PROCEDURES [address] [place] [address] Vini Mcdonald MD [address] [place] [address] INJECTION TRIGGER POINT THREE OR MORE MUSCLES(low back) PAIN [facility]ANG PROCEDURES Comment on above: INJECTION TRIGGER POINT THREE OR MORE MU SCLES(low back) Start: 05-19-2024 Subsequent hospital visit by physician 05/19/2024 3:30 PM EST Hospital Encounter PA[facility] PROCEDURES [address] [place] [address] Vini Mcdonald MD [address] [place] [address] Myofascial pain syndrome [M79.18] PAIN [facility]ANG PROCEDURES Comment on above: Myofascial pain syndrome [M79.18] Start: 05-19-2024 End: 05-19-2024 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 trigger point 3/> muscles MR PAIN KANG Start: 05-14-2024 End: 05-14-2024 Admission to same day surgery center 05/14/2024 3:30 PM EST - 05/14/2024 4:00 PM EST Surgery PA[facility] PROCEDURES [address] [place] [address] Vini Mcdonald MD [address] [place] [address] INJECTION TRIGGER POINT THREE OR MORE MUSCLES (upper back and neck) [facility] PROCEDURES Comment on above: INJECTION TRIGGER POINT THREE OR MORE MU SCLES (upper back and neck) Start: 05-14-2024 End: 05-14-2024 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 trigger point 3/> muscles INJECTION TRIGGER POINT THREE OR MORE MUSCLES Myofascial pain syndrome 05/14/2024 3:30 PM EST MR PAIN KANG Start: 05-14-2024 Subsequent hospital visit by physician 05/14/2024 3:30 PM EST Hospital Encounter PAIN [facility]ANG PROCEDURES [address] [place] [address] Vini Mcdonald MD [address] [place] [address] Myofascial pain syndrome [M79.18] PA[facility]ANG PROCEDURES Comment on above: Myofascial pain syndrome [M79.18] Start: 05-12-2024 End: 05-12-2024 Admission to same day surgery center 05/12/2024 3:30 PM EST - 05/12/2024 4:00 PM EST Surgery PAIN [facility]ANG PROCEDURES [address] [place] [address] Vini Mcdonald MD [address] [place] [address] INJECTION TRIGGER POINT THREE OR MORE MUSCLES (upper back and neck) PAIN [facility]ANG PROCEDURES Comment on above: INJECTION TRIGGER POINT THREE OR MORE MU SCLES (upper back and neck) Start: 05-12-2024 End: 05-12-2024 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 trigger point 3/> muscles MR PAIN KANG Start: 05-12-2024 Subsequent hospital visit by physician 05/12/2024 3:30 PM EST Hospital Encounter PAIN [facility]ANG PROCEDURES [address] [place] [address] Vini Mcdonald MD [address] [place] [address] Myofascial pain syndrome [M79.18] PA[facility]ANG PROCEDURES Comment on above: Myofascial pain syndrome [M79.18] Start: 04-02-2024 Subsequent hospital visit by physician 04/02/2024 Hospital Encounter PA[facility] PROCEDURES [address] [place] [address] Vini Mcdonald MD [address] [place] [address] 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 [G43.711] PAIN [facility] PROCEDURES Comment on above: Intractable chronic migraine without aur a and with status migrainosus [G43.711] Start: 03-25-2024 End: 03-25-2024 Patient encounter procedure 03/25/2024 2:30 PM EDT Office Visit Pain Management [address] [place] [address] Erika Conway PA-C [address] [place] [address] Follow Up Pain Management Comment on above: Follow Up Start: 03-25-2024 End: 06-24-2024 TOXASSURE FLEX 23, URINE TOXASSURE FLEX 23, URINE Lab Routine 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 Expected: 03/25/2024, Expires: 06/24/2024 [facility] Work Phone: Comment on above: Expected: 03/25/2024, Expires: Start: 03-12-2024 End: 03-12-2024 Admission to same day surgery center 03/12/2024 3:30 PM EDT - 03/12/2024 4:00 PM EDT Surgery PAIN [facility]ANG PROCEDURES [address] [place] [address] Vini Mcdonald MD [address] [place] [address] INJECTION TRIGGER POINT THREE OR MORE MUSCLES (mid/lower back x 1 visit) PAIN [facility]ANG PROCEDURES Comment on above: INJECTION TRIGGER POINT THREE OR MORE MU SCLES (mid/lower back x 1 visit) Start: 03-12-2024 End: 03-12-2024 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 trigger point 3/> muscles INJECTION TRIGGER POINT THREE OR MORE MUSCLES Myofascial pain syndrome 03/12/2024 3:30 PM EDT MR PAIN KANG Start: 03-12-2024 Subsequent hospital visit by physician PAIN KANG PROCEDURES Comment on above: Myofascial pain syndrome [M79.18] 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 [G43.711], Migraine, unspecified, without mention of intractable migraine without mention of status migrainosus [G43.909] Start: 03-10-2024 End: 03-10-2024 Admission to same day surgery center 03/10/2024 3:30 PM EDT - 03/10/2024 4:00 PM EDT Surgery PAIN [facility]ANG PROCEDURES [address] [place] [address] Vini Mcdonald MD [address] [place] [address] INJECTION TRIGGER POINT THREE OR MORE MUSCLES (neck/upper back) PAIN KANG PROCEDURES Comment on above: INJECTION TRIGGER POINT THREE OR MORE MU SCLES (neck/upper back) Start: 03-10-2024 End: 03-10-2024 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 trigger point 3/> muscles INJECTION TRIGGER POINT THREE OR MORE MUSCLES Myofascial pain syndrome 03/10/2024 3:30 PM EDT MR PAIN KANG Start: 03-10-2024 Subsequent hospital visit by physician 03/10/2024 3:30 PM EDT Hospital Encounter [facility] PROCEDURES [address] [facility] [address] Vini Mcdonald MD [address] [place] [address] Myofascial pain syndrome [M79.18] PAIN KANG PROCEDURES Comment on above: Myofascial pain syndrome [M79.18] Start: 02-25-2024 End: 02-25-2024 Admission to same day surgery center 02/25/2024 2:00 PM EDT - 02/25/2024 2:30 PM EDT Surgery PAIN [facility]ANG PROCEDURES [address] [place] [address] Vini Mcdonald MD [address] [place] [address] CHEMODENERVATION OF MUSCLE (S), MUSCLE (S) INNERVATED BY FACIAL NERVE PAIN [facility]ANG PROCEDURES Comment on above: CHEMODENERVATION OF MUSCLE (S), MUSCLE ( S) INNERVATED BY FACIAL NERVE Start: 02-25-2024 End: 02-25-2024 Chemodnrvtj musc musc innervated facial nrv unil CHEMODENERVATION OF MUSCLE (S), MUSCLE (S) INNERVATED BY FACIAL NERVE 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 Migraine, unspecified, without mention of intractable migraine without mention of status migrainosus 02/25/2024 2:00 PM EDT [facility] Start: 02-25-2024 Subsequent hospital visit by physician 02/25/2024 2:00 PM EDT Hospital Encounter PAIN [facility]ANG PROCEDURES [address] [place] [address] Vini Mcdonald MD [address] [place] [address] 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 [G43.711], Migraine, unspecified, without mention of intractable migraine without mention of status migrainosus [G43.909] PAIN KANG PROCEDURES Comment on above: Intractable chronic migraine without aur a and with status migrainosus [G43.711], Migraine, unspecified, without mention of intractable migraine without mention of status migrainosus [G43.909] Start: 02-11-2024 End: 02-11-2024 Admission to same day surgery center 02/11/2024 4:00 PM EDT - 02/11/2024 4:30 PM EDT Surgery PAIN [facility]ANG PROCEDURES [address] [place] [address] Vini Mcdonald MD [address] [place] [address] CHEMODENERVATION OF MUSCLE (S), MUSCLE (S) INNERVATED BY FACIAL NERVE PAIN KANG PROCEDURES Comment on above: CHEMODENERVATION OF MUSCLE (S), MUSCLE ( S) INNERVATED BY FACIAL NERVE Start: 02-11-2024 End: 02-11-2024 Chemodnrvtj musc musc innervated facial nrv unil CHEMODENERVATION OF MUSCLE (S), MUSCLE (S) INNERVATED BY FACIAL NERVE 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 Migraine, unspecified, without mention of intractable migraine without mention of status migrainosus 02/11/2024 4:00 PM EDT MR [facility] Start: 02-11-2024 Subsequent hospital visit by physician 02/11/2024 4:00 PM EDT Hospital Encounter PAIN [facility]ANG PROCEDURES [address] [place] [address] Vini Mcdonald MD [address] [place] [address] 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 [G43.711] PAIN KANG PROCEDURES Comment on above: Intractable chronic migraine without aur a and with status migrainosus [G43.711] Start: 02-09-2024 Covid-19 Vaccine ( season) Covid-19 Vaccine ( season) [facility] Start: 02-09-2024 Covid-19 Vaccine ( season) Covid-19 Vaccine ( season) [facility] Start: 02-09-2024 Influenza vaccination [facility] Start: 01-14-2024 End: 01-14-2024 Admission to same day surgery center 01/14/2024 3:00 PM EDT - 01/14/2024 3:30 PM EDT Surgery PAIN [facility]ANG PROCEDURES [address] [place] [address] Vini Mcdonald MD [address] [place] [address] bilateral sternocleidomastoid, splenius capitis, trapezius, and levator scapulae muscles INJECTION TRIGGER POINT THREE OR MORE MUSCLES PAIN KANG PROCEDURES Comment on above: bilateral sternocleidomastoid, splenius capitis, trapezius, and levator scapulae muscles INJECTION TRIGGER POINT THREE OR MORE MUSCLES Start: 01-14-2024 End: 01-14-2024 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 trigger 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 3/> muscles INJECTION TRIGGER POINT THREE OR MORE MUSCLES Fibromyalgia 01/14/2024 3:00 PM EDT MR PAIN KANG Start: 01-14-2024 Subsequent hospital visit by physician 01/14/2024 3:00 PM EDT Hospital Encounter PA[facility]ANG PROCEDURES [address] [place] [address] Vini Mcdonald MD [address] [place] [address] Fibromyalgia [M79.7] PAIN KANG PROCEDURES Comment on above: Fibromyalgia [M79.7] Start: 12-26-2023 End: 12-26-2023 Admission to same day surgery center PAIN KANG PROCEDURES Comment on above: bilateral sternocleidomastoid, splenius capitis, trapezius, and levator scapulae muscles INJECTION TRIGGER POINT THREE OR MORE MUSCLES Start: 12-26-2023 End: 12-26-2023 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 trigger point 3/> muscles INJECTION TRIGGER POINT THREE OR MORE MUSCLES Fibromyalgia 12/26/2023 2:30 PM EDT MR PAIN KANG Start: 12-26-2023 Subsequent hospital visit by physician PAIN KANG PROCEDURES Comment on above: Fibromyalgia [M79.7] Start: 12-24-2023 End: 12-24-2023 Admission to same day surgery center PAIN KANG PROCEDURES Comment on above: bilateral quadratus lumborum, latissimus dorsi, erector spinae, and rhomboid muscles INJECTION TRIGGER POINT THREE OR MORE MUSCLES Start: 12-24-2023 End: 12-24-2023 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 trigger point 3/> muscles INJECTION TRIGGER POINT THREE OR MORE MUSCLES Fibromyalgia 12/24/2023 2:30 PM EDT MR [facility] Start: 12-24-2023 Subsequent hospital visit by physician PAIN KANG PROCEDURES Comment on above: Fibromyalgia [M79.7] Start: 12-18-2023 End: 12-18-2023 Patient encounter procedure 12/18/2023 2:30 PM EDT Office Visit Pain Management [address] [place] [address] Vini Mcdonald MD [address] [facility] [place] [address] FOLLOW UP Pain Management Comment on above: FOLLOW UP Start: 11-14-2023 End: 11-14-2023 Chemodervate facial/trigem/cerv musc migraine CHEMODENERVATION OF MUSCLE(S) INNERVATED BY FACIAL, TRIGEMINAL, CERVICAL SPINAL AND ACCESSORY NERVES, BILATERAL Migraine, unspecified, without mention of intractable migraine without mention of status migrainosus 11/14/2023 1:28 PM EDT MR [facility] Start: 11-12-2023 End: 11-12-2023 Admission to same day surgery center 11/12/2023 3:15 PM EDT - 11/12/2023 3:30 PM EDT Surgery PAIN [facility]ANG PROCEDURES [address] [place] [address] Dejon Andres MD [address] [place] [address] CHEMODENERVATION OF MUSCLE(S) INNERVATED BY FACIAL, TRIGEMINAL, CERVICAL SPINAL AND ACCESSORY NERVES, BILATERAL PAIN KANG PROCEDURES Comment on above: CHEMODENERVATION OF MUSCLE(S) INNERVATED BY FACIAL, TRIGEMINAL, CERVICAL SPINAL AND ACCESSORY NERVES, BILATERAL Start: 11-12-2023 End: 11-12-2023 Chemodervate facial/trigem/cerv musc migraine CHEMODENERVATION OF MUSCLE(S) INNERVATED BY FACIAL, TRIGEMINAL, CERVICAL SPINAL AND ACCESSORY NERVES, BILATERAL Migraine without status migrainosus, not intractable, unspecified migraine type 11/12/2023 3:15 PM EDT MR [facility] Start: 11-12-2023 Subsequent hospital visit by physician 11/12/2023 3:15 PM EDT Hospital Encounter PAIN [facility]ANG PROCEDURES [address] [place] [address] Dejon Andres MD [address] [place] [address] Migraine without status migrainosus, not intractable, unspecified migraine type [G43.909] PAIN KANG PROCEDURES Comment on above: Migraine without status migrainosus, not intractable, unspecified migraine type [G43.909] Start: 10-29-2023 End: 10-29-2023 Patient encounter procedure 10/29/2023 2:45 PM EDT Office Visit Pain Management [address] [place] [address] Erika Conway PA-C [address] [place] [address] FOLLOW UP Pain Management Comment on above: FOLLOW UP Start: 10-24-2023 End: 10-24-2023 Admission to same day surgery center 10/24/2023 9:30 AM EDT - 10/24/2023 9:45 AM EDT Surgery PAIN [facility]ANG PROCEDURES [address] [place] [address] Dejon Andres MD [address] [place] [address] INJECTION TRIGGER POINT THREE OR MORE MUSCLES PAIN KANG PROCEDURES Comment on above: INJECTION TRIGGER POINT THREE OR MORE MU SCLES Start: 10-24-2023 End: 10-24-2023 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 trigger point 3/> muscles INJECTION TRIGGER POINT THREE OR MORE MUSCLES Myofascial pain syndrome 10/24/2023 9:30 AM EDT MR PAIN KANG Start: 10-24-2023 Subsequent hospital visit by physician 10/24/2023 9:30 AM EDT Hospital Encounter PAIN [facility]ANG PROCEDURES [address] [place] [address] Dejon Andres MD [address] [place] [address] Myofascial pain syndrome [M79.18] PAIN KANG PROCEDURES Comment on above: Myofascial pain syndrome [M79.18] Start: 08-12-2023 Ambulation without limitation [facility] Start: 08-12-2023 Elevation of head of bed [facility] Start: 08-12-2023 Medical regimen orders management [facility] Start: 08-12-2023 Medication education [facility] Start: 08-12-2023 Patient discharge [facility] Start: 08-12-2023 Procedure discontinued [facility] Start: 08-12-2023 Taking patient vital signs [facility] Start: 08-12-2023 Vital signs measurements [facility] Start: 06-10-2023 Behavioral Health Screening Behavioral Health Screening [facility] Start: 06-10-2023 Depression Assessment Depression Assessment [facility] Start: 02-08-2023 Covid-19 Vaccine () Covid-19 Vaccine () [facility] Start: 02-08-2023 Influenza vaccination [facility] Start: 01-30-2023 End: 04-01-2023 TOXASSURE FLEX 23, URINE TOXASSURE FLEX 23, URINE Lab Routine Other chronic pain 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 Expected: 01/30/2023, Expires: 04/01/2023 [facility] Work Phone: Comment on above: Expected: 01/30/2023, Expires: 3 Start: 10-23-2022 End: 12-23-2022 TOXASSURE FLEX 23, URINE TOXASSURE FLEX 23, URINE 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 Expected: 10/23/2022, Expires: 12/23/2022 [facility] Work Phone: Comment on above: Expected: 10/23/2022, Expires: 3 Start: 2022 COLOGUARD (FIT-DNA) COLOGUARD (FIT-DNA) [facility] Start: 2022 Colonoscopy COLONOSCOPY [facility] Start: 2022 COLORECTAL CANCER SCREENING COLORECTAL CANCER SCREENING [facility] Start: [address] COLONOGRAPHY [facility] Start: 2022 DIABETES SCREEN DIABETES SCREEN [facility] Start: 2022 Diabetes Screening Diabetes Screening [facility] Start: 2022 FECAL OCCULT BLOOD FECAL OCCULT BLOOD [facility] Start: 2022 Lipid 1996 panel - Serum or Plasma Lipid Screening [facility] Start: 2022 Lipid panel Lipid Screening [facility] Start: 2022 LIPID SCREEN LIPID SCREEN [facility] Start: 2022 Screening for malignant neoplasm of colon [facility] Start: 2022 SIGMOIDOSCOPY SIGMOIDOSCOPY [facility] Start: 07-10-2022 End: 09-09-2022 TOXASSURE FLEX 23, URINE TOXASSURE FLEX 23, URINE Lab Routine 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 Expected: 07/10/2022, Expires: 09/09/2022 [facility] Work Phone: Comment on above: Expected: 07/10/2022, Expires: Start: 06-10-2022 DEPRESSION ASSESSMENT DEPRESSION ASSESSMENT [facility] Start: 02-08-2022 Influenza vaccination [facility] Start: 01-30-2022 End: 04-01-2022 DRUG SCR TOXASURE DRUG SCR TOXASURE Lab Routine Zlfhyxo-Djzec-Jaxci syndrome POTS (postural orthostatic tachycardia syndrome) Myofascial pain syndrome Expected: 01/30/2022, Expires: 04/01/2022 [facility] Work Phone: Comment on above: Expected: 01/30/2022, Expires: 2 Start: 06-26-2021 COVID-19 VACCINE (4 - Booster for Pfizer series) COVID-19 VACCINE (4 - Booster for Pfizer series) [facility] Start: 06-26-2021 COVID-19 VACCINE (4 - Pfizer series) COVID-19 VACCINE (4 - Pfizer series) [facility] Start: 06-10-2021 DEPRESSION ASSESSMENT DEPRESSION ASSESSMENT [facility] Start: 10-23-2017 End: 10-23-2017 Patient encounter procedure Appointment [employer] Work Phone: Start: 2017 Mammography [facility] Start: 2017 Screening for malignant neoplasm of breast Mammogram Screening [facility] Start: 04-18-2017 End: 04-18-2017 Patient encounter procedure Appointment [employer] Work Phone: Start: 04-18-2017 End: 04-18-2017 Echocardiography Echocardiogram (complete) [employer] Work Phone: Start: 04-18-2017 End: 04-18-2017 Follow Up Appt 6 months Follow Up Appt 6 months [employer] Work Phone: Start: 04-18-2017 End: 04-18-2017 PFM PFM [facility] Work Phone: Start: 10-11-2016 End: 10-11-2016 Follow Up Appt 6 months Follow Up Appt 6 months [employer] [employer] [facility] Work Phone: Start: 10-11-2016 End: 10-11-2016 MMM MMM [employer] Work Phone: Start: 01-09-2016 End: 01-09-2016 Ecg routine ecg w/least 12 lds w/i&r EKG (In office) [employer] Work Phone: Start: 01-09-2016 End: 01-09-2016 Echocardiography Echocardiogram (complete) [employer] Work Phone: Start: 01-09-2016 End: 01-09-2016 Follow Up Appt 9 months Follow Up Appt 9 months [facility] Work Phone: Start: 01-09-2016 End: 01-09-2016 PFM PFM [facility] Work Phone: Start: 06-24-2015 End: 06-24-2015 Echocardiography Echocardiogram (complete) [employer] Work Phone: Start: 06-24-2015 End: 06-24-2015 Follow Up Appt 6 months Follow Up Appt 6 months [facility] Work Phone: Start: 06-24-2015 End: 06-24-2015 MMM MMM [facility] Work Phone: Start: 07-07-2014 End: 07-07-2014 Ecg routine ecg w/least 12 lds w/i&r EKG (In office) [facility] Work Phone: Start: 07-07-2014 End: 07-07-2014 Follow Up Appt 6 months Follow Up Appt 6 months [facility] Work Phone: Start: 07-07-2014 End: 07-07-2014 PFM PFM [facility] Work Phone: Start: 05-10-2014 End: 12-30-2013 Echocardiography Echocardiogram (complete) [facility] Work Phone: Start: 12-30-2013 End: 12-30-2013 Follow Up Appt 6 months Follow Up Appt 6 months [facility] Work Phone: Start: 12-30-2013 End: 12-30-2013 MMM MMM [facility] Work Phone: Start: 02-19-2013 End: 02-19-2013 Echocardiography Echocardiogram (complete) [facility] Work Phone: Start: 02-19-2013 End: 02-19-2013 Follow Up Appt 6 months Follow Up Appt 6 months [facility] Work Phone: Start: 02-19-2013 End: 02-19-2013 PFM PFM [facility] Work Phone: Start: 08-14-2012 End: 02-10-2013 Ecg routine ecg w/least 12 lds w/i&r EKG (In office) [facility] Work Phone: Start: 08-14-2012 End: 08-14-2012 Follow Up Appt 6 months Follow Up Appt 6 months [facility] Work Phone: Start: 08-14-2012 End: 02-10-2013 MMM MMM [facility] Work Phone: Start: 02-01-2012 End: 02-01-2012 Ecg routine ecg w/least 12 lds w/i&r EKG (In office) [facility] [employer] [facility] [employer] Work Phone: Start: 02-01-2012 End: 02-01-2012 Echocardiography Echocardiogram (complete) [employer] Work Phone: Start: 02-01-2012 End: 02-10-2013 Follow Up Appt 6 months Follow Up Appt 6 months [facility] [employer] Work Phone: Start: 06-29-2011 End: 06-29-2011 Follow Up Appt 6 months Follow Up Appt 6 months [facility] [employer] Work Phone: Start: 10-17-2007 HPV TESTING HPV TESTING [facility] Start: 10-17-2007 Screening for malignant neoplasm of cervix HPV Testing [facility] Start: 01-08-2002 Medicare Annual Wellness Visit Medicare Annual Wellness Visit [facility] Start: 1998 PAP TESTING PAP TESTING [facility] Start: 1998 Screening for malignant neoplasm of cervix [facility] Start: 1996 Hepatitis B Vaccine (1 of 3 - 19+ 3-dose series) Hepatitis B Vaccine (1 of 3 - 19+ 3-dose series) [facility] Start: 1996 Urine microalbumin profile [facility] Start: 10-17-1995 Anxiety Screening Anxiety Screening [facility] Start: 10-17-1995 Depression Screening Depression Screening [facility] Start: 10-17-1995 HEPATITIS C SCREENING HEPATITIS C SCREENING [facility] Start: 10-17-1995 Hepatitis C screening Hepatitis C Screening [facility] Start: 10-17-1995 HIV SCREENING HIV SCREENING [facility] Start: 10-17-1995 HIV screening HIV Screening [facility] Start: 1989 Adult depression screening assessment DEPRESSION SCREENING [facility] Start: 1982 COVID-19 VACCINE (#1) COVID-19 VACCINE (#1) [facility] Start: 1982 COVID-19 VACCINE (1) COVID-19 VACCINE (1) [facility] Start: 1977 HEPATITIS B (1 of 3 - 3-dose series) HEPATITIS B (1 of 3 - 3-dose series) [facility] Start: 1977 Hepatitis B Vaccine (1 of 3 - 3-dose series) Hepatitis B Vaccine (1 of 3 - 3-dose series) [facility] Chemodnrvtj musc mus c innervated facial nrv unil CHEMODENERVATION OF MUSCLE (S), MUSCLE (S) INNERVATED BY FACIAL NERVE 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 Migraine, unspecified, without mention of intractable migraine without mention of status migrainosus [facility] Chemodnrvtj musc mus c innervated facial nrv unil CHEMODENERVATION OF MUSCLE (S), MUSCLE (S) INNERVATED BY FACIAL NERVE 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 MR PAIN KANG 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 trigger point 3/> muscles INJECTION TRIGGER POINT THREE OR MORE MUSCLES Myofascial pain syndrome MR PAIN KANG Patient referral [facility] Work Phone: [facility] MR PAIN [facility] MR PAIN [facility] MR PAIN [facility] Immunizations Immunization Date Immunization Notes Care Provider Sal prasad 05-01-2021 COVID-19 original vaccine, age 12+ yr, monovalent (PFIZER-BIONTECH - PURPLE TOP) Demian Shravan 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 Work 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: [facility] 09-07-2020 COVID-19 original vaccine, age 12+ yr, monovalent (PFIZER-BIONTECH - PURPLE TOP) Demian Shravan 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 Work Phone: [facility] 08-17-2020 COVID-19 original vaccine, age 12+ yr, monovalent (PFIZER-BIONTECH - PURPLE TOP) Demian Shravan 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 2019 Medicaid [id number] 2013 Unknown [id number] 2003 Self-pay [id number] 2002 Medicaid [id number] 2002 Medicare MEDICARE MEDICAR E A AND B [id number] 2002-Present [phone] [place] [id number] Medicare [id number] 2002 Medicare [id number] 2001 Medicare MEDICARE MEDICAR E A AND B [id number] 2001-Present [phone] [place] [address] Medicare [id number] 2001 Medicare [id number] Unknown [id number] Unknown [id number] Unknown [id number] Unknown [id number] Unknown [id number] Social History Date Type Detail Facility [facility]: [facility] Start: 04-24-2016 End: 09-18-2024 Alcohol intake Current drinker of alcohol (finding) [facility] Start: 1975 Sex Assigned At Not on file [facility] Start: 1975 [facility] Start: 11-18-2021 End: 04-25-2022 Exposure to SARS-CoV-2 (event) Not sure [facility] Start: 01-30-2022 Tobacco use and exposure Smokeless tobacco non-user [facility] Start: 10-10-2022 End: 11-27-2022 History of Social function [facility] Start: 10-10-2022 End: 11-27-2022 Tobacco use panel [facility] Start: 05-11-2012 National Score (1-100), lower number is lower risk 66 [facility] Start: 11-23-2021 Gender identity Identifies as female gender (finding) [facility] Start: 11-23-2021 Sexual orientation Heterosexual (fin lien) [facility] Start: 07-31-2023 [facility] Start: 01-05-2025 Alcoholic beverage intake Ex-drinker (finding) [facility] NEGATED: Highlighted row [facility] Goals Date Patient Goal Desired Activity /State Functional Status Date Assessment Result Facility 09-29-2014 Are you deaf, or do you have serious difficulty hearing No 09/29/2014 10:36 AM Octavia Bermudez RN No [facility] 09-29-2014 Are you blind, or do you have serious difficulty seeing, even when wearing glasses No 09/29/2014 10:36 AM Octavia Bermudez RN No [facility] 09-29-2014 Do you have serious difficulty walking or climbing stairs No 09/29/2014 10:36 AM Octavia Bermudez RN No [facility] 09-29-2014 Do you have difficul ty dressing or bathing No 09/29/2014 10:36 AM Octavia Bermudez RN No [facility] 09-29-2014 Because of a physica l, mental, or emotional condition, do you have difficulty doing errands alone such as visiting a physician's office or shopping No 09/29/2014 10:36 AM Octavia Bermudez RN No [facility] Mental Status Date Assessment Result Facility 08-12-2023 Cognitive function Touch/Shaking [facility] Work Phone: 09-29-2014 Because of a physica l, mental, or emotional condition, do you have serious difficulty concentrating, remembering, or making decisions No 09/29/2014 10:36 AM Octavia Bermudez RN No [facility] Clinical Notes 08-09-2008 to 02-23-2025 Operative Report - Vini Mcdonald MD - 02/23/2025 4:27 PM EDTOperative Report - Vini Mcdonald MD - 02/23/2025 4:27 PM Gail Brown MA - 02/23/2025 3:52 PM EDTPatient Instructions Note Date & Type Note Facility 02-23-2025 Surgery Surgical operation note Summary: TPI PATIENT: Capri Aguilar SURGEON: Primary: Vini Mcdonald MD : 1975 DATE OF SURGERY: February 23, 2025 PRE-OP Diagnosis: Myofascial pain syndrome [M79.18] POST-OP Diagnosis: Same Procedure: Procedure(s): INJECTION TRIGGER POINT THREE OR MORE MUSCLES (neck/upper back x 1 visit) Anesthesia Type: Local The following procedure was performed in the office today: Trigger Point Injection(s): (19105) -Informed consent was obtained and all patient questions were answered. After discussing the risks, benefits, prognosis, and alternatives to the procedure, the patient expressed understanding and wished to proceed. UNIVERSAL PROTOCOL / SAFETY CHECKLIST Procedure to be Performed: Trigger point injections Sign In: A Moment of CARE was completed. Appropriate PPE (Personal Protective Equipment) worn by all providers involved with the procedure. Special equipment not required. Patient/Surrogate Stated/Verified: Patient name, Date of , Relevant allergies, and The intended procedure Time Out: Relevant labs, photos, and/or imaging studies have been reviewed. Intended patient and procedure match the source document(s) (e.g. consent, H&P, associated studies [imaging, pathology]) match the intended patient and procedure. Consent obtained and matches the intended procedure. Yes. Correct side/site has been marked and visible. Medications required for this procedure are verified. Fire risk assessed and is not applicable. Implants: Are not applicable. Sign Out: Specimens not collected. All instruments, equipment, possible retained foreign bodies are accounted for. Yes. The post-procedure plan of care has been communicated to the patient or surrogate. -Procedure: The trigger points injections were performed today in the office with aseptic technique. The patient tolerated the procedure well and was discharged after an appropriate period of observation. Trigger points injected (#): 37 Muscle groups: Bilateral cervical paraspinous, trapezius, thoracic paraspinous, rhomboids Injectate: total of 20 mL of 0.25% bupivacaine; distributed ~equally at each site. T [facility] Work Phone: 02-23-2025 Surgical operatio n note Summary: TPI PATIENT: Capri Aguilar SURGEON: Primary: Vini Mcdonald MD : 1975 DATE OF SURGERY: February 23, 2025 PRE-OP Diagnosis: Myofascial pain syndrome [M79.18] POST-OP Diagnosis: Same Procedure: Procedure(s): INJECTION TRIGGER POINT THREE OR MORE MUSCLES (neck/upper back x 1 visit) Anesthesia Type: Local The following procedure was performed in the office today: Trigger Point Injection(s): (69694) -Informed consent was obtained and all patient questions were answered. After discussing the risks, benefits, prognosis, and alternatives to the procedure, the patient expressed understanding and wished to proceed. UNIVERSAL PROTOCOL / SAFETY CHECKLIST Procedure to be Performed: Trigger point injections Sign In: A Moment of CARE was completed. Appropriate PPE (Personal Protective Equipment) worn by all providers involved with the procedure. Special equipment not required. Patient/Surrogate Stated/Verified: Patient name, Date of , Relevant allergies, and The intended procedure Time Out: Relevant labs, photos, and/or imaging studies have been reviewed. Intended patient and procedure match the source document(s) (e.g. consent, H&P, associated studies [imaging, pathology]) match the intended patient and procedure. Consent obtained and matches the intended procedure. Yes. Correct side/site has been marked and visible. Medications required for this procedure are verified. Fire risk assessed and is not applicable. Implants: Are not applicable. Sign Out: Specimens not collected. All instruments, equipment, possible retained foreign bodies are accounted for. Yes. The post-procedure plan of care has been communicated to the patient or surrogate. -Procedure: The trigger points injections were performed today in the office with aseptic technique. The patient tolerated the procedure well and was discharged after an appropriate period of observation. Trigger points injected (#): 37 Muscle groups: Bilateral cervical paraspinous, trapezius, thoracic paraspinous, rhomboids Injectate: total of 20 mL of 0.25% bupivacaine; distributed ~equally at each site. documented in this encounter [facility] 02-23-2025 Nurse Note TPI Injections Pt does not take any blood thinners Pt is not diabetic Pt is not on any antibiotics Pt did not take any sedation Gail Crooks MA February 23, 2025 3:53 PM [facility] 02-23-2025 Nurse Note TPI Injections Pt does not take any blood thinners Pt is not diabetic Pt is not on any antibiotics Pt did not take any sedation Gail Crooks MA February 23, 2025 3:53 PM documented in this encounter [facility] 02-12-2025 Telephone encounter Note Pt requesting TPI, please advise if you will order. Roxana Byrne RN February 12, 2025 3:07 PM [facility] 02-12-2025 Miscellaneous Notes Pt requesting TPI, please advise if you will order. Roxana Byrne RN February 12, 2025 3:07 PM documented in this encounter [facility] 02-05-2025 Telephone encounter Note The following approved medication requests have been transmitted electronically. Requested Prescriptions Signed Prescriptions Disp Refills oxyCODONE concentrate (ROXICODONE) 20 mg/mL concentrated solution 120 mL 0 Sig: Take 0.5-1 mL by mouth every 6 hours as needed for pain for up to 30 days. Continue working on decreasing your dose by 0.5 mL at a time as tolerated. Authorizing Provider: EIRKA CONWAY PA-C [facility] 02-05-2025 Miscellaneous Notes The following approved medication requests have been transmitted electronically. Requested Prescriptions Signed Prescriptions Disp Refills oxyCODONE concentrate (ROXICODONE) 20 mg/mL concentrated solution 120 mL 0 Sig: Take 0.5-1 mL by mouth every 6 hours as needed for pain for up to 30 days. Continue working on decreasing your dose by 0.5 mL at a time as tolerated. Authorizing Provider: ERIKA CONWAY PA-C Patient phones requesting refills as follows: Requested Prescriptions Pending Prescriptions Disp Refills oxyCODONE concentrate (ROXICODONE) 20 mg/mL concentrated solution 120 mL 0 Sig: Take 0.5-1 mL by mouth every 6 hours as needed for pain for up to 30 days. Continue working on decreasing your dose by 0.5 mL at a time as tolerated. Last UDS: Opioid agreement signed 09/18/24 We will not be escalating opioid dosage [facility] Urine Drug Screen Summary Report Date Value Ref Range Status 09/18/2024 FINAL Final Comment: ==== Opiate Class, MS, Ur RFX Oxycodone Class, MS, Ur RFX ToxAssure Flex 23, Ur ==== Test Result Flag Units Drug Present and Declared for Prescription Verification Oxycodone 2937 EXPECTED ng/mg creat Oxymorphone 1291 EXPECTED ng/mg creat Noroxycodone >7634 EXPECTED ng/mg creat Noroxymorphone 2333 EXPECTED ng/mg creat Sources of oxycodone are scheduled prescription medications. Oxymorphone, noroxycodone, and noroxymorphone are expected metabolites of oxycodone. Oxymorphone is also available as a scheduled prescription medication. ==== Test Result Flag Units Ref Range Creatinine 131 mg/dL >=20 ==== Declared Medications: The flagging and interpretation on this report are based on the following declared medications. Unexpected results may arise from inaccuracies in the declared medications. Note: The testing scope of this panel includes these medications: Oxycodone ==== For clinical consultation, please call . ==== [facility] Urine Drug Screen and Benzo Confirm Urine Panel: No results found for: UQCANN, UQBNZL, ECE7PVU, UQAMPH, UQMAMP, UQBUPRE, UQNORBUP, UQMTHD, UQEDDP, UQTRAM, UQDTRM, UQFNTL, UQNFTL, UQCODE, UQMORP, UQDCDN, UQHCOD, UQOXYC, UQHMOR, UQOXYM, UQCREA, UQPH, UQSPGR, UQOXID, UQSPQ Last Opioid agreement effective date: 09/18/2024 Recent Visits Date Type Provider Dept 01/05/25 Office Visit Erika Conway PA-C [facility] 09/18/24 Office Visit Erika Conway PA-C [facility] 06/23/24 Office Visit Erika Conway PA-C [facility] 03/25/24 Office Visit Erika Conway PA-C [facility] 12/18/23 Office Visit Vini Mcdonald MD [facility] 10/29/23 Office Visit Erika Conway PA-C [facility] 09/19/23 Office Visit Erika Conway PA-C [facility] Showing recent visits within past 540 days with a meds authorizing provider and meeting all other requirements Future Appointments Date Type Provider Dept 03/19/25 Appointment Erika Conway PA-C [facility] Showing future appointments within next 150 days with a meds authorizing provider and meeting all other requirements Please review and advise. Sharyn Page MA documented in this encounter [facility] 02-05-2025 Telephone encounter Note Patient phones requesting refills as follows: Requested Prescriptions Pending Prescriptions Disp Refills oxyCODONE concentrate (ROXICODONE) 20 mg/mL concentrated solution 120 mL 0 Sig: Take 0.5-1 mL by mouth every 6 hours as needed for pain for up to 30 days. Continue working on decreasing your dose by 0.5 mL at a time as tolerated. Last UDS: Opioid agreement signed 09/18/24 We will not be escalating opioid dosage [facility] Urine Drug Screen Summary Report Date Value Ref Range Status 09/18/2024 FINAL Final Comment: ==== Opiate Class, MS, Ur RFX Oxycodone Class, MS, Ur RFX ToxAssure Flex 23, Ur ==== Test Result Flag Units Drug Present and Declared for Prescription Verification Oxycodone 2937 EXPECTED ng/mg creat Oxymorphone 1291 EXPECTED ng/mg creat Noroxycodone >7634 EXPECTED ng/mg creat Noroxymorphone 2333 EXPECTED ng/mg creat Sources of oxycodone are scheduled prescription medications. Oxymorphone, noroxycodone, and noroxymorphone are expected metabolites of oxycodone. Oxymorphone is also available as a scheduled prescription medication. ==== Test Result Flag Units Ref Range Creatinine 131 mg/dL >=20 ==== Declared Medications: The flagging and interpretation on this report are based on the following declared medications. Unexpected results may arise from inaccuracies in the declared medications. Note: The testing scope of this panel includes these medications: Oxycodone ==== For clinical consultation, please call . ==== [facility] Urine Drug Screen and Benzo Confirm Urine Panel: No results found for: UQCANN, UQBNZL, PLX8LYL, UQAMPH, UQMAMP, UQBUPRE, UQNORBUP, UQMTHD, UQEDDP, UQTRAM, UQDTRM, UQFNTL, UQNFTL, UQCODE, UQMORP, UQDCDN, UQHCOD, UQOXYC, UQHMOR, UQOXYM, UQCREA, UQPH, UQSPGR, UQOXID, UQSPQ Last Opioid agreement effective date: 09/18/2024 Recent Visits Date Type Provider Dept 01/05/25 Office Visit Erika Conway PA-C [facility] 09/18/24 Office Visit Erika Conway PA-C [facility] 06/23/24 Office Visit Erika Conway PA-C [facility] 03/25/24 Office Visit Erika Conway PA-C [facility] 12/18/23 Office Visit Vini Mcdonald MD [facility] 10/29/23 Office Visit Erika Conway PA-C [facility] 09/19/23 Office Visit Man LILIAN Alcantar-C [facility] Showing recent visits within past 540 days with a meds authorizing provider and meeting all other requirements Future Appointments Date Type Provider Dept 03/19/25 Appointment Man Erika Lynch PA-C [facility] Showing future appointments within next 150 days with a meds authorizing provider and meeting all other requirements Please review and advise. Sharyn Page MA [facility] 01-05-2025 Surgery Surgical operation note Summary: Botox Inj PATIENT: Capri Aguilar SURGEON: Primary: Vini Mcdonald MD : 1975 DATE OF SURGERY: January 05, 2025 PRE-OP Diagnosis: 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 [G43.711] POST-OP Diagnosis: Same Procedure: Procedure(s): CHEMODENERVATION OF MUSCLE(S) INNERVATED BY FACIAL, TRIGEMINAL, CERVICAL SPINAL AND ACCESSORY NERVES, BILATERAL Anesthesia Type: Local The following procedure was performed in the office today: Botox Injection PROCEDURE: Botox injection CPT code: 27367 PREPROCEDURE DIAGNOSIS: Migraine headache POSTPROCEDURE DIAGNOSIS: same ANESTHESIA: none PROCEDURE REPORT: The risks and benefits of the procedure were explained to the patient and all questions were answered. The patient gave consent to proceed with the procedure. UNIVERSAL PROTOCOL / SAFETY CHECKLIST Procedure to be Performed: Botox injections Sign In: A Moment of CARE was completed. Appropriate PPE (Personal Protective Equipment) worn by all providers involved with the procedure. Special equipment not required. Patient/Surrogate Stated/Verified: Patient name, Date of , Relevant allergies, and The intended procedure Time Out: Relevant labs, photos, and/or imaging studies are not applicable. Intended patient and procedure match the source document(s) (e.g. consent, H&P, associated studies [imaging, pathology]) match the intended patient and procedure. Consent obtained and matches the intended procedure. Yes. Correct side/site has been marked and visible. Medications required for this procedure are verified. Fire risk assessed and is not applicable. Implants: are not applicable. Sign Out: Specimens not collected. All instruments, equipment, possible retained foreign bodies are accounted for. Yes. The post-procedure plan of care has been communicated to the patient or surrogate. The skin was prepped with alcohol. BOTOX Lot Number: [id number] BOTOX was reconstituted to a concentration of 5 U/0.1mL. The following injections were made using a 30G needle: 5 Botox units to the procerus muscle 5 Botox units to the right senior hydrogeologist supercilii muscle 5 Botox units to the left senior hydrogeologist supercilii muscle 30 Botox units to the frontalis muscle 30 Botox units to the right temporalis muscle 30 Botox units to the left temporalis muscle 15 Botox units to the right occipitalis muscle 15 Botox units to the left occipitalis muscle 10 Botox units to the right cervical paraspinals 10 Botox units to the left cervical paraspinals Total Units Used: 155 Total Units Wasted: 45 The needle was withdrawn intact. The patient tolerated the procedure well with no complications noted. [facility] Work Phone: 01-05-2025 Surgical operatio n note Summary: Botox Inj PATIENT: Capri Aguilar SURGEON: Primary: Vini Mcdonald MD : 1975 DATE OF SURGERY: January 05, 2025 PRE-OP Diagnosis: 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 [G43.711] POST-OP Diagnosis: Same Procedure: Procedure(s): CHEMODENERVATION OF MUSCLE(S) INNERVATED BY FACIAL, TRIGEMINAL, CERVICAL SPINAL AND ACCESSORY NERVES, BILATERAL Anesthesia Type: Local The following procedure was performed in the office today: Botox Injection PROCEDURE: Botox injection CPT code: 53937 PREPROCEDURE DIAGNOSIS: Migraine headache POSTPROCEDURE DIAGNOSIS: same ANESTHESIA: none PROCEDURE REPORT: The risks and benefits of the procedure were explained to the patient and all questions were answered. The patient gave consent to proceed with the procedure. UNIVERSAL PROTOCOL / SAFETY CHECKLIST Procedure to be Performed: Botox injections Sign In: A Moment of CARE was completed. Appropriate PPE (Personal Protective Equipment) worn by all providers involved with the procedure. Special equipment not required. Patient/Surrogate Stated/Verified: Patient name, Date of , Relevant allergies, and The intended procedure Time Out: Relevant labs, photos, and/or imaging studies are not applicable. Intended patient and procedure match the source document(s) (e.g. consent, H&P, associated studies [imaging, pathology]) match the intended patient and procedure. Consent obtained and matches the intended procedure. Yes. Correct side/site has been marked and visible. Medications required for this procedure are verified. Fire risk assessed and is not applicable. Implants: are not applicable. Sign Out: Specimens not collected. All instruments, equipment, possible retained foreign bodies are accounted for. Yes. The post-procedure plan of care has been communicated to the patient or surrogate. The skin was prepped with alcohol. BOTOX Lot Number: [id number] BOTOX was reconstituted to a concentration of 5 U/0.1mL. The following injections were made using a 30G needle: 5 Botox units to the procerus muscle 5 Botox units to the right senior hydrogeologist supercilii muscle 5 Botox units to the left senior hydrogeologist supercilii muscle 30 Botox units to the frontalis muscle 30 Botox units to the right temporalis muscle 30 Botox units to the left temporalis muscle 15 Botox units to the right occipitalis muscle 15 Botox units to the left occipitalis muscle 10 Botox units to the right cervical paraspinals 10 Botox units to the left cervical paraspinals Total Units Used: 155 Total Units Wasted: 45 The needle was withdrawn intact. The patient tolerated the procedure well with no complications noted. documented in this encounter [facility] 01-05-2025 Instructions Erika Conway PA-C - 01/05/2025 2:42 PM EDT The OARRS report has been reviewed and is consistent with the patients medical history and medication intake. The patient's most recent drug screen has been reviewed and is appropriate and consistent with current therapy. The patient will continue with oxycodone but continue to work on cutting your daily use back by 1/2 ML at a time as tolerated. We will drop this to a total of 4 mL/day on this refill since she has only been using 3 a day in an effort to try and get under the 120 morphine equivalents. The patient was previously offered Narcan but declined. She states that there is absolutely no chance that somebody will overdose at home and she does not feel it is necessary at this time. She will call our office if she changes her mind. She was encouraged to keep herself physically active, stretch out, and exercise. Follow-up in office in 3 months Supervising Physician - Dr. Vini Mcdonald MD documented in this encounter [facility] 01-05-2025 Note HNO ID: [id number] Author: ERIKA CONWAY PA-C Service: ? Author Type: Physician Spot Checker Type: Progress Notes Filed: 01/05/2025 15:17 Note Text: Subjective Capri Aguilar is a 49 year old female. The patient primarily being seen for generalized body pain and headaches Patient was last seen on: 09/18/24 At that time, the treatment plan was: see notes Current Meds: oxycodone - noon Efficacy: helps Side effects: denies TENS unit: didn't help, allergic to the pads How often used: Benefit: Physical Therapy: Last UDS: 09/18/24 Last injection: 12/31/24, 12/29/24 - Trigger point injections OARRS reviewed At the present time, the patient reports benefit with her present analgesic therapy. She denies any adverse effects. She has only been using 3 mL/day so that her medication would stretch, which has affected her sleep at night and overall pain levels. Since her previous visit, she denies any hospitalizations or ER visits. She states that the trigger point injections helped relieve around 80-85% of the muscle pain and have allowed her to be more active. She is scheduled for botox later today to help with her migraines which have been increasing in both frequency and severity due to being time for her next botox injections. The visit was done today due to needing an updated office visit in order to get her medications sent to the pharmacy. 12/31/2024 12/31/2024 INTAKE PAIN ASSESSMENT Pain Level 7 7 Pain Location Back-Lower Back-Lower Description Aching;Throbbing;Sore;Tightness; Stiffness Aching;Throbbing;Sore;Stiffness Pain Assessment Assessment Reassessment 09/18/2024 01/05/2025 Pain Disability Index Family/Home Responsibilities: This category includes chores or duties performed around the house (e.g. yard work), errands or favors for other family members (e.g. driving the children to school) 0 No Disability 0 No Disability Recreation: This category includes hobbies, sports, and other similar leisure time activities 0 No disability 0 No disability Social Activity: This category refers to activities which involve participation with friends and acquaintances, other than family members. It includes parties, theater, concerts, dinning out, and other social functions 0 No disability 0 No disability Occupation: This category refers to activities that are a part of or directly related to ones' job. This includes non-paying jobs as well, such as that of a housewife or volunteer worker 0 No disability 0 No disability Sexual Behavior: This category refers to the frequency and quality of one's sex life 0 No disability 0 No disability Self Care: This category includes activities which involve personal maintenance and independent daily living (e.g. 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 Other acne Persistent vomiting PAST SURGICAL HISTORY Procedure Laterality Date EAR TUBES HX ESOPHAGOGASTRODUODENOSCOPY TRANSORAL DIAGNOSTIC 01/04/03 EGD EXTRACTION, ERUPTED TOOTH OR EXPOSED ROOT (ELEVATION AND/OR FORCEPS REMOVAL) 99 WISODOM TEETH FOOT SURGERY HX HAMMERTOE REVISION, ONE TOE 95, 97 Bialteral/ hammertoe AND arches KNEE SURGERY HX MYRINGOTOMY ASPIRAND/EUSTACHIAN TUBE NFLTJ ANES 05/20 Myringotomy/tubes PAST SURGICAL HISTORY OF , 04, 03, FOOT, KNEE,ANKLES PAST SURGICAL HISTORY OF 2002 MUSCLE BIOPSY PAST SURGICAL HISTORY OF 1997 CARDIAC SURGERY TONSILLECTOMY AND ADENOIDECTOMY TONSILLECTOMY PRIMARY/SECONDARY Tonsillectomy Social History Tobacco Use Smoking status: Never Smokeless tobacco: Never Substance Use Topics Alcohol use: Not Currently Drug use: No Review of Systems Constitutional: Negative for fever and unexpected weight change. Musculoskeletal: + neck pain, back pain, numbness, tingling, muscle cramps/weakness, stiffness, arthritis, leg pain at night, and leg pain with exertion. Neurological: Positive for headaches. Objective BP 126/80 (BP Site: Left Arm, BP Position: Sitting) Pulse 91 Resp 16 LMP (LMP Unknown) SpO2 99% Physical Exam Vitals and nursing note reviewed. Constitutional: Appearance: Normal appearance. She is well-developed, well-groomed and normal weight. HENT: Head: Normocephalic and atraumatic. Right Ear: Hearing normal. Left Ear: Hearing n (more content not included)... [facility] 01-05-2025 History of Presen t illness Narrative Subjective Capri Aguilar is a 49 year old female. The patient primarily being seen for generalized body pain and headaches Patient was last seen on: 09/18/24 At that time, the treatment plan was: see notes Current Meds: oxycodone - noon Efficacy: helps Side effects: denies TENS unit: didn't help, allergic to the pads How often used: Benefit: Physical Therapy: Last UDS: 09/18/24 Last injection: 12/31/24, 12/29/24 - Trigger point injections OARRS reviewed At the present time, the patient reports benefit with her present analgesic therapy. She denies any adverse effects. She has only been using 3 mL/day so that her medication would stretch, which has affected her sleep at night and overall pain levels. Since her previous visit, she denies any hospitalizations or ER visits. She states that the trigger point injections helped relieve around 80-85% of the muscle pain and have allowed her to be more active. She is scheduled for botox later today to help with her migraines which have been increasing in both frequency and severity due to being time for her next botox injections. The visit was done today due to needing an updated office visit in order to get her medications sent to the pharmacy. 12/31/2024 12/31/2024 INTAKE PAIN ASSESSMENT Pain Level 7 7 Pain Location Back-Lower Back-Lower Description Aching;Throbbing;Sore;Tightness; Stiffness Aching;Throbbing;Sore;Stiffness Pain Assessment Assessment Reassessment 09/18/2024 01/05/2025 Pain Disability Index Family/Home Responsibilities: This category includes chores or duties performed around the house (e.g. yard work), errands or favors for other family members (e.g. driving the children to school) 0 No Disability 0 No Disability Recreation: This category includes hobbies, sports, and other similar leisure time activities 0 No disability 0 No disability Social Activity: This category refers to activities which involve participation with friends and acquaintances, other than family members. It includes parties, theater, concerts, dinning out, and other social functions 0 No disability 0 No disability Occupation: This category refers to activities that are a part of or directly related to ones' job. This includes non-paying jobs as well, such as that of a housewife or volunteer worker 0 No disability 0 No disability Sexual Behavior: This category refers to the frequency and quality of one's sex life 0 No disability 0 No disability Self Care: This category includes activities which involve personal maintenance and independent daily living (e.g. taking a shower, driving, getting dress, etc) 0 No disability 0 No disability Life Support Activity: This category refers to basic-life supporting behaviors such as eating, sleeping, and breathing 0 No disability 0 No disability PDI Score 0 0 PAST MEDICAL HISTORY Diagnosis Date Acute gastritis without mention of hemorrhage CHARCOT Lmvrsfa-Wmgll-ygyme disease, deafness, and intellectual disability syndrome (HCC) Eczema Chiquis-Danlos syndrome (HCC) Fibromyalgia GERD (gastroesophageal reflux disease) Loss of weight Marfan syndrome (HCC) Mitochondrial myopathy Mitochondrial myopathy Mitral valve disorders(424.0) [...] 14 TONSILLECTOMY PRIMARY/SECONDARY <AGE 14 1982 Tonsillectomy Social History Tobacco Use Smoking status: Never Smokeless tobacco: Never Substance Use Topics Alcohol use: Not Currently Drug use: No Review of Systems Constitutional: Negative for fever and unexpected weight change. Musculoskeletal: + neck pain, back pain, numbness, tingling, muscle cramps/weakness, stiffness, arthritis, leg pain at night, and leg pain with exertion. Neurological: Positive for headaches. Objective BP 126/80 (BP Site: Left Arm, BP Position: Sitting) Pulse 91 Resp 16 LMP (LMP Unknown) SpO2 99% Physical Exam Vitals and nursing note reviewed. Constitutional: Appearance: Normal appearance. She is well-developed, well-groomed and normal weight. HENT: Head: Normocephalic and atraumatic. Right Ear: Hearing normal. Left Ear: Hearing normal. Eyes: Conjunctiva/sclera: Conjunctivae normal. Musculoskeletal: Comments: Patient walks with a normal gait. There is tenderness noted in the cervical and lumbar region with mild spasms noted in the trapezius, rhomboid, paraspinal, and latissimus dorsi muscles. These have improved following the trigger point injections done last week. The patient has multiple fibromyalgia tender points noted throughout the examination. Strength is 5/5 throughout. Sensation is intact to light touch throughout. SLR is negative. Neurological: Mental Status: She is alert and oriented to person, place, and time. Psychiatric: Attention and Perception: Attention and perception normal. Mood and Affect: Mood and affect normal. Speech: Speech normal. Behavior: Behavior normal. Behavior is cooperative. Thought Content: Thought content normal. Judgment: Judgment normal. ASSESSMENT/PLAN: 1. 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 Marfan's syndrome (HCC) - ICD9: 759.82, ICD10: Q87.40 4. Myofascial pain syndrome - ICD9: 729.1, ICD10: M79.18 5. Fibromyalgia - ICD9: 729.1, ICD10: M79.7 6. Migraine, unspecified, without mention of intractable migraine without mention of status migrainosus - ICD9: 346.90, ICD10: G43.909 PLAN: The OARRS report has been reviewed and is consistent with the patients medical history and medication intake. The patient's most recent drug screen has been reviewed and is appropriate and consistent with current therapy. The patient will continue with oxycodone but continue to work on cutting your daily use back by 1/2 ML at a time as tolerated. We will drop this to a total of 4 mL/day on this refill since she has only been using 3 a day in an effort to try and get under the 120 morphine equivalents. The patient was previously offered Narcan but declined. She states that there is absolutely no chance that somebody will overdose at home and she does not feel it is necessary at this time. She will call our office if she changes her mind. She was encouraged to keep herself physically active, stretch out, and exercise. Follow-up in office in 3 months (Two stable chronic illnesses/prescription drug management) Erika Conway PA-C documented in this encounter [facility] 12-31-2024 Surgery Surgical operation note Summary: TPI PATIENT: Capri Aguilar SURGEON: Primary: Vini Mcdonald MD : 1975 DATE OF SURGERY: December 31, 2024 PRE-OP Diagnosis: Myofascial pain syndrome [M79.18] Fibromyalgia [M79.7] POST-OP Diagnosis: Same Procedure: Procedure(s): INJECTION TRIGGER POINT THREE OR MORE MUSCLES (mid/lower back) Anesthesia Type: Local The following procedure was performed in the office today: Trigger Point Injection(s): () -Informed consent was obtained and all patient questions were answered. After discussing the risks, benefits, prognosis, and alternatives to the procedure, the patient expressed understanding and wished to proceed. UNIVERSAL PROTOCOL / SAFETY CHECKLIST Procedure to be Performed: Trigger point injections Sign In: A Moment of CARE was completed. Appropriate PPE (Personal Protective Equipment) worn by all providers involved with the procedure. Special equipment not required. Patient/Surrogate Stated/Verified: Patient name, Date of , Relevant allergies, and The intended procedure Time Out: Relevant labs, photos, and/or imaging studies are not applicable. Intended patient and procedure match the source document(s) (e.g. consent, H&P, associated studies [imaging, pathology]) match the intended patient and procedure. Consent obtained and matches the intended procedure. Yes. Correct side/site has been marked and visible. Medications required for this procedure are verified. Fire risk assessed and is not applicable. Implants: are not applicable. Sign Out: Specimens not collected. All instruments, equipment, possible retained foreign bodies are accounted for. Yes. The post-procedure plan of care has been communicated to the patient or surrogate. -Procedure: The trigger points injections were performed today in the office with aseptic technique. The patient tolerated the procedure well and was discharged after an appropriate period of observation. Trigger points injected (#): 27 Muscle groups: Bilateral thoracic paraspinous, lumbar paraspinous, gluteus wayne Injectate: total of 10- mL of 0.25% bupivacaine; distributed ~equally at each site. [facility] Work Phone: 12-31-2024 Surgical operatio n note Summary: TPI PATIENT: Capri Aguilar SURGEON: Primary: Vini Mcdonald MD : 1975 DATE OF SURGERY: December 31, 2024 PRE-OP Diagnosis: Myofascial pain syndrome [M79.18] Fibromyalgia [M79.7] POST-OP Diagnosis: Same Procedure: Procedure(s): INJECTION TRIGGER POINT THREE OR MORE MUSCLES (mid/lower back) Anesthesia Type: Local The following procedure was performed in the office today: Trigger Point Injection(s): () -Informed consent was obtained and all patient questions were answered. After discussing the risks, benefits, prognosis, and alternatives to the procedure, the patient expressed understanding and wished to proceed. UNIVERSAL PROTOCOL / SAFETY CHECKLIST Procedure to be Performed: Trigger point injections Sign In: A Moment of CARE was completed. Appropriate PPE (Personal Protective Equipment) worn by all providers involved with the procedure. Special equipment not required. Patient/Surrogate Stated/Verified: Patient name, Date of , Relevant allergies, and The intended procedure Time Out: Relevant labs, photos, and/or imaging studies are not applicable. Intended patient and procedure match the source document(s) (e.g. consent, H&P, associated studies [imaging, pathology]) match the intended patient and procedure. Consent obtained and matches the intended procedure. Yes. Correct side/site has been marked and visible. Medications required for this procedure are verified. Fire risk assessed and is not applicable. Implants: are not applicable. Sign Out: Specimens not collected. All instruments, equipment, possible retained foreign bodies are accounted for. Yes. The post-procedure plan of care has been communicated to the patient or surrogate. -Procedure: The trigger points injections were performed today in the office with aseptic technique. The patient tolerated the procedure well and was discharged after an appropriate period of observation. Trigger points injected (#): 27 Muscle groups: Bilateral thoracic paraspinous, lumbar paraspinous, gluteus wayne Injectate: total of 10- mL of 0.25% bupivacaine; distributed ~equally at each site. documented in this encounter [facility] 12-31-2024 Note HNO ID: [id number] Author: KIMBERLI FREEDMAN RN Service: ? Author Type: Registered Nurse Type: Nursing Progress Note Filed: 12/31/2024 15:10 Note Text: Patient denies blood thinners [facility] 12-31-2024 Nurse Note Patient denies blood thinners [facility] 12-31-2024 Nurse Note Patient denies blood thinners documented in this encounter [facility] 12-30-2024 Telephone encounter Note 1 [facility] 12-30-2024 Miscellaneous Notes 1 documented in this encounter [facility] 12-29-2024 Surgery Surgical operation note Summary: TPI PATIENT: Capri Aguilar SURGEON: Primary: Vini Mcdonald MD : 1975 DATE OF SURGERY: December 29, 2024 PRE-OP Diagnosis: Myofascial pain syndrome [M79.18] Fibromyalgia [M79.7] POST-OP Diagnosis: Same Procedure: Procedure(s): INJECTION TRIGGER POINT THREE OR MORE MUSCLES (neck/upper back) Anesthesia Type: Local The following procedure was performed in the office today: Trigger Point Injection(s): ([id number]) -Informed consent was obtained and all patient questions were answered. After discussing the risks, benefits, prognosis, and alternatives to the procedure, the patient expressed understanding and wished to proceed. UNIVERSAL PROTOCOL / SAFETY CHECKLIST Procedure to be Performed: Trigger point injections Sign In: A Moment of CARE was completed. Appropriate PPE (Personal Protective Equipment) worn by all providers involved with the procedure. Special equipment not required. Patient/Surrogate Stated/Verified: Patient name, Date of , Relevant allergies, and The intended procedure Time Out: Relevant labs, photos, and/or imaging studies have been reviewed. Intended patient and procedure match the source document(s) (e.g. consent, H&P, associated studies [imaging, pathology]) match the intended patient and procedure. Consent obtained and matches the intended procedure. Yes. Correct side/site has been marked and visible. Medications required for this procedure are verified. Fire risk assessed and is not applicable. Implants: are not applicable. Sign Out: Specimens not collected. All instruments, equipment, possible retained foreign bodies are accounted for. Yes. The post-procedure plan of care has been communicated to the patient or surrogate. -Procedure: The trigger points injections were performed today in the office with aseptic technique. The patient tolerated the procedure well and was discharged after an appropriate period of observation. Trigger points injected (#): 33 Muscle groups: Bilateral cervical paraspinous muscles, bilateral thoracic paraspinous muscles, bilateral trapezius, bilateral rhomboids Injectate: total of 14 mL of 0.25% bupivacaine; distributed ~equally at each site. [facility] Work Phone: 12-29-2024 Surgical operatio n note Summary: TPI PATIENT: Capri Aguilar SURGEON: Primary: Vini Mcdonald MD : 1975 DATE OF SURGERY: December 29, 2024 PRE-OP Diagnosis: Myofascial pain syndrome [M79.18] Fibromyalgia [M79.7] POST-OP Diagnosis: Same Procedure: Procedure(s): INJECTION TRIGGER POINT THREE OR MORE MUSCLES (neck/upper back) Anesthesia Type: Local The following procedure was performed in the office today: Trigger Point Injection(s): ([id number]) -Informed consent was obtained and all patient questions were answered. After discussing the risks, benefits, prognosis, and alternatives to the procedure, the patient expressed understanding and wished to proceed. UNIVERSAL PROTOCOL / SAFETY CHECKLIST Procedure to be Performed: Trigger point injections Sign In: A Moment of CARE was completed. Appropriate PPE (Personal Protective Equipment) worn by all providers involved with the procedure. Special equipment not required. Patient/Surrogate Stated/Verified: Patient name, Date of , Relevant allergies, and The intended procedure Time Out: Relevant labs, photos, and/or imaging studies have been reviewed. Intended patient and procedure match the source document(s) (e.g. consent, H&P, associated studies [imaging, pathology]) match the intended patient and procedure. Consent obtained and matches the intended procedure. Yes. Correct side/site has been marked and visible. Medications required for this procedure are verified. Fire risk assessed and is not applicable. Implants: are not applicable. Sign Out: Specimens not collected. All instruments, equipment, possible retained foreign bodies are accounted for. Yes. The post-procedure plan of care has been communicated to the patient or surrogate. -Procedure: The trigger points injections were performed today in the office with aseptic technique. The patient tolerated the procedure well and was discharged after an appropriate period of observation. Trigger points injected (#): 33 Muscle groups: Bilateral cervical paraspinous muscles, bilateral thoracic paraspinous muscles, bilateral trapezius, bilateral rhomboids Injectate: total of 14 mL of 0.25% bupivacaine; distributed ~equally at each site. documented in this encounter [facility] 12-18-2024 Telephone encounter Note I sent this script today, which means she just needs to be seen before 01/20/25 which is when her next script is due. Unfortunately, I don't think we can do a FU and an injection on the same day so it'll have to be done on a separate day. She was seen in the office for her last visit, so we could do a virtual visit if she is able to do that whenever we can get her added on. Erika Conway PA-C I double check with Catherine Jimenez and was advised that we can do a f/u and procedure on the same day. The only way we can not is if the f/u is related to a problem caused by the procedure. Please advise if there is time Roxana Byrne RN December 18, 2024 3:44 PM [facility] 12-18-2024 Miscellaneous Notes I sent this script today, which means she just needs to be seen before 01/20/25 which is when her next script is due. Unfortunately, I don't think we can do a FU and an injection on the same day so it'll have to be done on a separate day. She was seen in the office for her last visit, so we could do a virtual visit if she is able to do that whenever we can get her added on. Erika Conway PA-C I double check with Catherine Jimenez and was advised that we can do a f/u and procedure on the same day. The only way we can not is if the f/u is related to a problem caused by the procedure. Please advise if there is time Roxana Byrne RN December 18, 2024 3:44 PM Lebron, Please review the note from Capri and advise as to how to proceed. Thanks, Ana King December 18, 2024 12:53 PM documented in this encounter [facility] 12-18-2024 Telephone encounter Note Lebron, Please review the note from Capri and advise as to how to proceed. Thanks, Ana King December 18, 2024 12:53 PM [facility] 12-18-2024 Telephone encounter Note Items addressed in this encounter: Telephone Encounter LVM to schedule appt 01/05-01/08 with Erika Conway NP Pain at a 245pm slot Able to close encounter. Sharyn Page MA December 18, 2024 11:03 AM 11:03 AM [facility] 12-18-2024 Miscellaneous Notes Items addressed in this encounter: Telephone Encounter LVM to schedule appt with Erika Conway NP Pain at a 245pm slot Able to close encounter. Sharyn Page MA December 18, 2024 11:03 AM 11:03 AM documented in this encounter [facility] 12-18-2024 Telephone encounter Note There is currently no one scheduled at 245 on 01/05, 01/06, or 01/08 [facility] 12-18-2024 Miscellaneous Notes There is currently no one scheduled at 245 on 01/05, 01/06, or 01/08 There are no 245 slots available. We need to get her an earlier appointment scheduled. Her next FU isn't until March and we are not going to be able to send any further scripts until she is seen. She can be added at 245 pm if needed. The following approved medication requests have been transmitted electronically. Requested Prescriptions Signed Prescriptions Disp Refills oxyCODONE concentrate (ROXICODONE) 20 mg/mL concentrated solution 150 mL 0 Sig: Take 0.5-1 mL by mouth every 4 hours as needed for pain for up to 30 days. Continue working on decreasing your dose by 0.5 mL at a time as tolerated. Patient should start on December 21, 2024. Authorizing Provider: ERIKA CONWAY PA-C Patient phones requesting refills as follows: Requested Prescriptions Pending Prescriptions Disp Refills oxyCODONE concentrate (ROXICODONE) 20 mg/mL concentrated solution 150 mL 0 Sig: Take 0.5-1 mL by mouth every 4 hours as needed for pain for up to 30 days. Continue working on decreasing your dose by 0.5 mL at a time as tolerated. Last UDS: Opioid agreement signed 09/18/24 We will not be escalating opioid dosage [facility] Urine Drug Screen Summary Report Date Value Ref Range Status 09/18/2024 FINAL Final Comment: ==== Opiate Class, MS, Ur RFX Oxycodone Class, MS, Ur RFX ToxAssure Flex 23, Ur ==== Test Result Flag Units Drug Present and Declared for Prescription Verification Oxycodone 2937 EXPECTED ng/mg creat Oxymorphone 1291 EXPECTED ng/mg creat Noroxycodone >7634 EXPECTED ng/mg creat Noroxymorphone 2333 EXPECTED ng/mg creat Sources of oxycodone are scheduled prescription medications. Oxymorphone, noroxycodone, and noroxymorphone are expected metabolites of oxycodone. Oxymorphone is also available as a scheduled prescription medication. ==== Test Result Flag Units Ref Range Creatinine 131 mg/dL >=20 ==== Declared Medications: The flagging and interpretation on this report are based on the following declared medications. Unexpected results may arise from inaccuracies in the declared medications. Note: The testing scope of this panel includes these medications: Oxycodone ==== For clinical consultation, please call . ==== [facility] Urine Drug Screen and Benzo Confirm Urine Panel: No results found for: UQCANN, UQBNZL, [id number], UQAMPH, UQMAMP, UQBUPRE, UQNORBUP, UQMTHD, UQEDDP, UQTRAM, UQDTRM, UQFNTL, UQNFTL, UQCODE, UQMORP, UQDCDN, UQHCOD, UQOXYC, UQHMOR, UQOXYM, UQCREA, UQPH, UQSPGR, UQOXID, UQSPQ Last Opioid agreement effective date: 09/18/2024 Recent Visits Date Type Provider Dept 09/18/24 Office Visit Erika Conway PA-C [facility] 06/23/24 Office Visit Erika Conway PA-C [facility] 03/25/24 Office Visit Erika Conway PA-C [facility] 12/18/23 Office Visit Vini Mcdonald MD [facility] 10/29/23 Office Visit Erika Conway PA-C [facility] 09/19/23 Office Visit Erika Conway PA-C [facility] 08/05/23 Office Visit Erika Conway PA-C [facility] Showing recent visits within past 540 days with a meds authorizing provider and meeting all other requirements Future Appointments Date Type Provider Dept 03/19/25 Appointment Erika Conway PA-C [facility] Showing future appointments within next 150 days with a meds authorizing provider and meeting all other requirements Please review and advise. Sharyn Page MA documented in this encounter [facility] 12-18-2024 Telephone encounter Note There are no 245 slots available. [facility] 12-18-2024 Telephone encounter Note We need to get her an earlier appointment scheduled. Her next FU isn't until March and we are not going to be able to send any further scripts until she is seen. She can be added at 245 pm if needed. [facility] 12-18-2024 Telephone encounter Note The following approved medication requests have been transmitted electronically. Requested Prescriptions Signed Prescriptions Disp Refills oxyCODONE concentrate (ROXICODONE) 20 mg/mL concentrated solution 150 mL 0 Sig: Take 0.5-1 mL by mouth every 4 hours as needed for pain for up to 30 days. Continue working on decreasing your dose by 0.5 mL at a time as tolerated. Patient should start on December 21, 2024. Authorizing Provider: ERIKA CONWAY PA-C [facility] 12-18-2024 Telephone encounter Note Patient phones requesting refills as follows: Requested Prescriptions Pending Prescriptions Disp Refills oxyCODONE concentrate (ROXICODONE) 20 mg/mL concentrated solution 150 mL 0 Sig: Take 0.5-1 mL by mouth every 4 hours as needed for pain for up to 30 days. Continue working on decreasing your dose by 0.5 mL at a time as tolerated. Last UDS: Opioid agreement signed 09/18/24 We will not be escalating opioid dosage [facility] Urine Drug Screen Summary Report Date Value Ref Range Status 09/18/2024 FINAL Final Comment: ==== Opiate Class, MS, Ur RFX Oxycodone Class, MS, Ur RFX ToxAssure Flex 23, Ur ==== Test Result Flag Units Drug Present and Declared for Prescription Verification Oxycodone 2937 EXPECTED ng/mg creat Oxymorphone 1291 EXPECTED ng/mg creat Noroxycodone >7634 EXPECTED ng/mg creat Noroxymorphone 2333 EXPECTED ng/mg creat Sources of oxycodone are scheduled prescription medications. Oxymorphone, noroxycodone, and noroxymorphone are expected metabolites of oxycodone. Oxymorphone is also available as a scheduled prescription medication. ==== Test Result Flag Units Ref Range Creatinine 131 mg/dL >=20 ==== Declared Medications: The flagging and interpretation on this report are based on the following declared medications. Unexpected results may arise from inaccuracies in the declared medications. Note: The testing scope of this panel includes these medications: Oxycodone ==== For clinical consultation, please call . ==== [facility] Urine Drug Screen and Benzo Confirm Urine Panel: No results found for: UQCANN, UQBNZL, [id number], UQAMPH, UQMAMP, UQBUPRE, UQNORBUP, UQMTHD, UQEDDP, UQTRAM, UQDTRM, UQFNTL, UQNFTL, UQCODE, UQMORP, UQDCDN, UQHCOD, UQOXYC, UQHMOR, UQOXYM, UQCREA, UQPH, UQSPGR, UQOXID, UQSPQ Last Opioid agreement effective date: 09/18/2024 Recent Visits Date Type Provider Dept 09/18/24 Office Visit Erika Conway PA-C [facility] 06/23/24 Office Visit Erika Conway PA-C [facility] 03/25/24 Office Visit Erika Conway PA-C [facility] 12/18/23 Office Visit Vini Mcdonald MD [facility] 10/29/23 Office Visit Erika Conway PA-C [facility] 09/19/23 Office Visit Erika Conway PA-C [facility] 08/05/23 Office Visit Erika Conway PA-C [facility] Showing recent visits within past 540 days with a meds authorizing provider and meeting all other requirements Future Appointments Date Type Provider Dept 03/19/25 Appointment Erika Conway PA-C [facility] Showing future appointments within next 150 days with a meds authorizing provider and meeting all other requirements Please review and advise. Sharyn Page MA [facility] 12-09-2024 Telephone encounter Note All three orders are in and should be fine to be scheduled on those dates if the openings are available. [facility] 12-09-2024 Miscellaneous Notes All three orders are in and should be fine to be scheduled on those dates if the openings are available. [facility] Diana called and would like to schedule 12/29 TPI's neck, 12/31 TPI's lumbar and Botox 01/05 all at 3:30 PM. Please advise. Ana Harmon December 09, 2024 3:14 PM documented in this encounter [facility] 12-09-2024 Telephone encounter Note Capri Diana called and would like to schedule 12/29 TPI's neck, 12/31 TPI's lumbar and Botox 01/05 all at 3:30 PM. Please advise. Ana Harmon December 09, 2024 3:14 PM [facility] 11-19-2024 Telephone encounter Note The following approved medication requests have been transmitted electronically. Requested Prescriptions Signed Prescriptions Disp Refills oxyCODONE concentrate (ROXICODONE) 20 mg/mL concentrated solution 150 mL 0 Sig: Take 0.5-1 mL by mouth every 4 hours as needed for pain for up to 30 days. Continue working on decreasing your dose by 0.5 mL at a time as tolerated. Authorizing Provider: ERIKA CONWAY PA-C [facility] 11-19-2024 Miscellaneous Notes The following approved medication requests have been transmitted electronically. Requested Prescriptions Signed Prescriptions Disp Refills oxyCODONE concentrate (ROXICODONE) 20 mg/mL concentrated solution 150 mL 0 Sig: Take 0.5-1 mL by mouth every 4 hours as needed for pain for up to 30 days. Continue working on decreasing your dose by 0.5 mL at a time as tolerated. Authorizing Provider: ERIKA CONWAY PA-C Patient phones requesting refills as follows: Requested Prescriptions Pending Prescriptions Disp Refills oxyCODONE concentrate (ROXICODONE) 20 mg/mL concentrated solution 150 mL 0 Sig: Take 0.5-1 mL by mouth every 4 hours as needed for pain for up to 30 days. Continue working on decreasing your dose by 0.5 mL at a time as tolerated. Last UDS: Opioid agreement signed 09/18/24 We will not be escalating opioid dosage [facility] Urine Drug Screen Summary Report Date Value Ref Range Status 09/18/2024 FINAL Final Comment: ==== Opiate Class, MS, Ur RFX Oxycodone Class, MS, Ur RFX ToxAssure Flex 23, Ur ==== Test Result Flag Units Drug Present and Declared for Prescription Verification Oxycodone 2937 EXPECTED ng/mg creat Oxymorphone 1291 EXPECTED ng/mg creat Noroxycodone >7634 EXPECTED ng/mg creat Noroxymorphone 2333 EXPECTED ng/mg creat Sources of oxycodone are scheduled prescription medications. Oxymorphone, noroxycodone, and noroxymorphone are expected metabolites of oxycodone. Oxymorphone is also available as a scheduled prescription medication. ==== Test Result Flag Units Ref Range Creatinine 131 mg/dL >=20 ==== Declared Medications: The flagging and interpretation on this report are based on the following declared medications. Unexpected results may arise from inaccuracies in the declared medications. Note: The testing scope of this panel includes these medications: Oxycodone ==== For clinical consultation, please call . ==== [facility] Urine Drug Screen and Benzo Confirm Urine Panel: No results found for: UQCANN, UQBNZL, [id number], UQAMPH, UQMAMP, UQBUPRE, UQNORBUP, UQMTHD, UQEDDP, UQTRAM, UQDTRM, UQFNTL, UQNFTL, UQCODE, UQMORP, UQDCDN, UQHCOD, UQOXYC, UQHMOR, UQOXYM, UQCREA, UQPH, UQSPGR, UQOXID, UQSPQ Last Opioid agreement effective date: 09/18/2024 Recent Visits Date Type Provider Dept 09/18/24 Office Visit Erika Conway PA-C [facility] 06/23/24 Office Visit Erika Conway PA-C [facility] 03/25/24 Office Visit Erika Conway PA-C [facility] 12/18/23 Office Visit Vini Mcdonald MD [facility] 10/29/23 Office Visit Erika Conway PA-C [facility] 09/19/23 Office Visit Erika Conway PA-C [facility] 08/05/23 Office Visit Erika Conway PA-C [facility] Showing recent visits within past 540 days with a meds authorizing provider and meeting all other requirements Future Appointments Date Type Provider Dept 03/19/25 Appointment Erika Conway PA-C [facility] Showing future appointments within next 150 days with a meds authorizing provider and meeting all other requirements Please review and advise. Izzy Reddy MA documented in this encounter [facility] 11-19-2024 Telephone encounter Note Patient phones requesting refills as follows: Requested Prescriptions Pending Prescriptions Disp Refills oxyCODONE concentrate (ROXICODONE) 20 mg/mL concentrated solution 150 mL 0 Sig: Take 0.5-1 mL by mouth every 4 hours as needed for pain for up to 30 days. Continue working on decreasing your dose by 0.5 mL at a time as tolerated. Last UDS: Opioid agreement signed 4/11/25 We will not be escalating opioid dosage [facility] Urine Drug Screen Summary Report Date Value Ref Range Status 09/18/2024 FINAL Final Comment: ==== Opiate Class, MS, Ur RFX Oxycodone Class, MS, Ur RFX ToxAssure Flex 23, Ur ==== Test Result Flag Units Drug Present and Declared for Prescription Verification Oxycodone 2937 EXPECTED ng/mg creat Oxymorphone 1291 EXPECTED ng/mg creat Noroxycodone >7634 EXPECTED ng/mg creat Noroxymorphone 2333 EXPECTED ng/mg creat Sources of oxycodone are scheduled prescription medications. Oxymorphone, noroxycodone, and noroxymorphone are expected metabolites of oxycodone. Oxymorphone is also available as a scheduled prescription medication. ==== Test Result Flag Units Ref Range Creatinine 131 mg/dL >=20 ==== Declared Medications: The flagging and interpretation on this report are based on the following declared medications. Unexpected results may arise from inaccuracies in the declared medications. Note: The testing scope of this panel includes these medications: Oxycodone ==== For clinical consultation, please call . ==== [facility] Urine Drug Screen and Benzo Confirm Urine Panel: No results found for: UQCANN, UQBNZL, [id number], UQAMPH, UQMAMP, UQBUPRE, UQNORBUP, UQMTHD, UQEDDP, UQTRAM, UQDTRM, UQFNTL, UQNFTL, UQCODE, UQMORP, UQDCDN, UQHCOD, UQOXYC, UQHMOR, UQOXYM, UQCREA, UQPH, UQSPGR, UQOXID, UQSPQ Last Opioid agreement effective date: 09/18/2024 Recent Visits Date Type Provider Dept 09/18/24 Office Visit Erika Conway PA-C [facility] 06/23/24 Office Visit Erika Conway PA-C [facility] 03/25/24 Office Visit Erika Conway PA-C [facility] 12/18/23 Office Visit Vini Mcdonald MD [facility] 10/29/23 Office Visit Erika Conway PA-C [facility] 09/19/23 Office Visit Erika Conway PA-C [facility] 08/05/23 Office Visit Erika Conway PA-C [facility] Showing recent visits within past 540 days with a meds authorizing provider and meeting all other requirements Future Appointments Date Type Provider Dept 03/19/25 Appointment Erika Conway PA-C [facility] Showing future appointments within next 150 days with a meds authorizing provider and meeting all other requirements Please review and advise. Izzy Redyd MA [facility] 11-05-2024 Surgery Surgical operation note Summary: TPI PATIENT: Capri Aguilar SURGEON: Primary: Vini Mcdonald MD : 1975 DATE OF SURGERY: November 05, 2024 PRE-OP Diagnosis: Myofascial pain syndrome [M79.18] POST-OP Diagnosis: Same Procedure: Procedure(s): INJECTION TRIGGER POINT THREE OR MORE MUSCLES Anesthesia Type: Local The following procedure was performed in the office today: Trigger Point Injection(s): () -Informed consent was obtained and all patient questions were answered. After discussing the risks, benefits, prognosis, and alternatives to the procedure, the patient expressed understanding and wished to proceed. UNIVERSAL PROTOCOL / SAFETY CHECKLIST Procedure to be Performed: Trigger point injections Sign In: A Moment of CARE was completed. Appropriate PPE (Personal Protective Equipment) worn by all providers involved with the procedure. Special equipment not required. Patient/Surrogate Stated/Verified: Patient name, Date of , Relevant allergies, and The intended procedure Time Out: Relevant labs, photos, and/or imaging studies have been reviewed. Intended patient and procedure match the source document(s) (e.g. consent, H&P, associated studies [imaging, pathology]) match the intended patient and procedure. Consent obtained and matches the intended procedure. Yes. Correct side/site has been marked and visible. Medications required for this procedure are verified. are not applicable. Fire risk assessed and is not applicable. Implants: are not applicable. Sign Out: Specimens not collected. All instruments, equipment, possible retained foreign bodies are accounted for. Yes. The post-procedure plan of care has been communicated to the patient or surrogate. -Procedure: The trigger points injections were performed today in the office with aseptic technique. The patient tolerated the procedure well and was discharged after an appropriate period of observation. Trigger points injected (#): 27 Muscle groups: Bilateral thoracic paraspinous, bilateral lumbar paraspinous, bilateral gluteus wayne muscles Injectate: total of 10 mL of 0.25% bupivacaine; distributed equally at each site. [facility] Work Phone: 11-05-2024 Surgical operatio n note Summary: TPI PATIENT: Capri Aguilar SURGEON: Primary: Vini Mcdonald MD : 1975 DATE OF SURGERY: November 05, 2024 PRE-OP Diagnosis: Myofascial pain syndrome [M79.18] POST-OP Diagnosis: Same Procedure: Procedure(s): INJECTION TRIGGER POINT THREE OR MORE MUSCLES Anesthesia Type: Local The following procedure was performed in the office today: Trigger Point Injection(s): () -Informed consent was obtained and all patient questions were answered. After discussing the risks, benefits, prognosis, and alternatives to the procedure, the patient expressed understanding and wished to proceed. UNIVERSAL PROTOCOL / SAFETY CHECKLIST Procedure to be Performed: Trigger point injections Sign In: A Moment of CARE was completed. Appropriate PPE (Personal Protective Equipment) worn by all providers involved with the procedure. Special equipment not required. Patient/Surrogate Stated/Verified: Patient name, Date of , Relevant allergies, and The intended procedure Time Out: Relevant labs, photos, and/or imaging studies have been reviewed. Intended patient and procedure match the source document(s) (e.g. consent, H&P, associated studies [imaging, pathology]) match the intended patient and procedure. Consent obtained and matches the intended procedure. Yes. Correct side/site has been marked and visible. Medications required for this procedure are verified. are not applicable. Fire risk assessed and is not applicable. Implants: are not applicable. Sign Out: Specimens not collected. All instruments, equipment, possible retained foreign bodies are accounted for. Yes. The post-procedure plan of care has been communicated to the patient or surrogate. -Procedure: The trigger points injections were performed today in the office with aseptic technique. The patient tolerated the procedure well and was discharged after an appropriate period of observation. Trigger points injected (#): 27 Muscle groups: Bilateral thoracic paraspinous, bilateral lumbar paraspinous, bilateral gluteus wayne muscles Injectate: total of 10 mL of 0.25% bupivacaine; distributed equally at each site. documented in this encounter [facility] 11-05-2024 Note HNO ID: [id number] Author: KIMBERLI FREEDMAN RN Service: ? Author Type: Registered Nurse Type: Nursing Progress Note Filed: 11/05/2024 15:18 Note Text: Patient denies blood thinners [facility] 11-05-2024 Nurse Note Patient denies blood thinners [facility] 11-05-2024 Nurse Note Patient denies blood thinners documented in this encounter [facility] 11-03-2024 Surgery Surgical operation note Summary: TPI PATIENT: Capri Aguilar SURGEON: Primary: Vini Mcdonald MD : 1975 DATE OF SURGERY: November 03, 2024 PRE-OP Diagnosis: Myofascial pain syndrome [M79.18] Fibromyalgia [M79.7] POST-OP Diagnosis: Same Procedure: Procedure(s): INJECTION TRIGGER POINT THREE OR MORE MUSCLES Anesthesia Type: Local The following procedure was performed in the office today: Trigger Point Injection(s): (31323) -Informed consent was obtained and all patient questions were answered. After discussing the risks, benefits, prognosis, and alternatives to the procedure, the patient expressed understanding and wished to proceed. UNIVERSAL PROTOCOL / SAFETY CHECKLIST Procedure to be Performed: Trigger point injections Sign In: A Moment of CARE was completed. Appropriate PPE (Personal Protective Equipment) worn by all providers involved with the procedure. Special equipment not required. Patient/Surrogate Stated/Verified: Patient name, Date of , Relevant allergies, and The intended procedure Time Out: Relevant labs, photos, and/or imaging studies have been reviewed. Intended patient and procedure match the source document(s) (e.g. consent, H&P, associated studies [imaging, pathology]) match the intended patient and procedure. Consent obtained and matches the intended procedure. Yes. Correct side/site has been marked and visible. Medications required for this procedure are verified. Fire risk assessed and is not applicable. Implants: are not applicable. Sign Out: Specimens not collected. All instruments, equipment, possible retained foreign bodies are accounted for. Yes. The post-procedure plan of care has been communicated to the patient or surrogate. -Procedure: The trigger points injections were performed today in the office with aseptic technique. The patient tolerated the procedure well and was discharged after an appropriate period of observation. Trigger points injected (#): 38 Muscle groups: Bilateral trapezius, bilateral cervical paraspinous, bilateral thoracic paraspinous, bilateral rhomboids, bilateral supraspinatus Injectate: total of 18 mL of 0.25% bupivacaine; distributed equally at each site. [facility] Work Phone: 11-03-2024 Surgical operatio n note Summary: TPI PATIENT: Capri Aguilar SURGEON: Primary: Vini Mcdonald MD : 1975 DATE OF SURGERY: November 03, 2024 PRE-OP Diagnosis: Myofascial pain syndrome [M79.18] Fibromyalgia [M79.7] POST-OP Diagnosis: Same Procedure: Procedure(s): INJECTION TRIGGER POINT THREE OR MORE MUSCLES Anesthesia Type: Local The following procedure was performed in the office today: Trigger Point Injection(s): (05916) -Informed consent was obtained and all patient questions were answered. After discussing the risks, benefits, prognosis, and alternatives to the procedure, the patient expressed understanding and wished to proceed. UNIVERSAL PROTOCOL / SAFETY CHECKLIST Procedure to be Performed: Trigger point injections Sign In: A Moment of CARE was completed. Appropriate PPE (Personal Protective Equipment) worn by all providers involved with the procedure. Special equipment not required. Patient/Surrogate Stated/Verified: Patient name, Date of , Relevant allergies, and The intended procedure Time Out: Relevant labs, photos, and/or imaging studies have been reviewed. Intended patient and procedure match the source document(s) (e.g. consent, H&P, associated studies [imaging, pathology]) match the intended patient and procedure. Consent obtained and matches the intended procedure. Yes. Correct side/site has been marked and visible. Medications required for this procedure are verified. Fire risk assessed and is not applicable. Implants: are not applicable. Sign Out: Specimens not collected. All instruments, equipment, possible retained foreign bodies are accounted for. Yes. The post-procedure plan of care has been communicated to the patient or surrogate. -Procedure: The trigger points injections were performed today in the office with aseptic technique. The patient tolerated the procedure well and was discharged after an appropriate period of observation. Trigger points injected (#): 38 Muscle groups: Bilateral trapezius, bilateral cervical paraspinous, bilateral thoracic paraspinous, bilateral rhomboids, bilateral supraspinatus Injectate: total of 18 mL of 0.25% bupivacaine; distributed equally at each site. documented in this encounter [facility] 10-06-2024 Surgery Surgical operation note Summary: Botox Injections PATIENT: Capri Aguilar SURGEON: Primary: Vini Mcdonald MD : 1975 DATE OF SURGERY: October 06, 2024 PRE-OP Diagnosis: Migraine, unspecified, without mention of intractable migraine without mention of status migrainosus [G43.909] POST-OP Diagnosis: Same Procedure: Procedure(s): CHEMODENERVATION OF MUSCLE(S) INNERVATED BY FACIAL, TRIGEMINAL, CERVICAL SPINAL AND ACCESSORY NERVES, BILATERAL Anesthesia Type: Local The following procedure was performed in the office today: Botox Injection PROCEDURE: Botox injection CPT code: 68079 PREPROCEDURE DIAGNOSIS: Migraine headache POSTPROCEDURE DIAGNOSIS: same ANESTHESIA: none PROCEDURE REPORT: The risks and benefits of the procedure were explained to the patient and all questions were answered. The patient gave consent to proceed with the procedure. UNIVERSAL PROTOCOL / SAFETY CHECKLIST Procedure to be Performed: Botox injections Sign In: A Moment of CARE was completed. Appropriate PPE (Personal Protective Equipment) worn by all providers involved with the procedure. Special equipment not required. Patient/Surrogate Stated/Verified: Patient name, Date of , Relevant allergies, and The intended procedure Time Out: Relevant labs, photos, and/or imaging studies have been reviewed. Intended patient and procedure match the source document(s) (e.g. consent, H&P, associated studies [imaging, pathology]) match the intended patient and procedure. Consent obtained and matches the intended procedure. Yes. Correct side/site is not applicable. Medications required for this procedure are verified. are not applicable. Fire risk assessed and is not applicable. Implants: are not applicable. Sign Out: Specimens not collected. All instruments, equipment, possible retained foreign bodies are accounted for. Yes. The post-procedure plan of care has been communicated to the patient or surrogate. The skin was prepped with alcohol. BOTOX Lot Number: [id number] BOTOX was reconstituted to a concentration of 5 U/0.1mL. The following injections were made using a 30G needle: 5 Botox units to the procerus muscle 5 Botox units to the right senior hydrogeologist supercilii muscle 5 Botox units to the left senior hydrogeologist supercilii muscle 30 Botox units to the frontalis muscle 30 Botox units to the right temporalis muscle 30 Botox units to the left temporalis muscle 15 Botox units to the right occipitalis muscle 15 Botox units to the left occipitalis muscle 10 Botox units to the right cervical paraspinals 10 Botox units to the left cervical paraspinals The needle was withdrawn intact. The patient tolerated the procedure well with no complications noted. [facility] Work Phone: 10-06-2024 Miscellaneous Notes Summary: Botox Injections PATIENT: Capri Aguilar SURGEON: Primary: Vini Mcdonald MD : 1975 DATE OF SURGERY: October 06, 2024 PRE-OP Diagnosis: Migraine, unspecified, without mention of intractable migraine without mention of status migrainosus [G43.909] POST-OP Diagnosis: Same Procedure: Procedure(s): CHEMODENERVATION OF MUSCLE(S) INNERVATED BY FACIAL, TRIGEMINAL, CERVICAL SPINAL AND ACCESSORY NERVES, BILATERAL Anesthesia Type: Local The following procedure was performed in the office today: Botox Injection PROCEDURE: Botox injection CPT code: 31606 PREPROCEDURE DIAGNOSIS: Migraine headache POSTPROCEDURE DIAGNOSIS: same ANESTHESIA: none PROCEDURE REPORT: The risks and benefits of the procedure were explained to the patient and all questions were answered. The patient gave consent to proceed with the procedure. UNIVERSAL PROTOCOL / SAFETY CHECKLIST Procedure to be Performed: Botox injections Sign In: A Moment of CARE was completed. Appropriate PPE (Personal Protective Equipment) worn by all providers involved with the procedure. Special equipment not required. Patient/Surrogate Stated/Verified: Patient name, Date of , Relevant allergies, and The intended procedure Time Out: Relevant labs, photos, and/or imaging studies have been reviewed. Intended patient and procedure match the source document(s) (e.g. consent, H&P, associated studies [imaging, pathology]) match the intended patient and procedure. Consent obtained and matches the intended procedure. Yes. Correct side/site is not applicable. Medications required for this procedure are verified. are not applicable. Fire risk assessed and is not applicable. Implants: are not applicable. Sign Out: Specimens not collected. All instruments, equipment, possible retained foreign bodies are accounted for. Yes. The post-procedure plan of care has been communicated to the patient or surrogate. The skin was prepped with alcohol. BOTOX Lot Number: [id number] BOTOX was reconstituted to a concentration of 5 U/0.1mL. The following injections were made using a 30G needle: 5 Botox units to the procerus muscle 5 Botox units to the right senior hydrogeologist supercilii muscle 5 Botox units to the left senior hydrogeologist supercilii muscle 30 Botox units to the frontalis muscle 30 Botox units to the right temporalis muscle 30 Botox units to the left temporalis muscle 15 Botox units to the right occipitalis muscle 15 Botox units to the left occipitalis muscle 10 Botox units to the right cervical paraspinals 10 Botox units to the left cervical paraspinals The needle was withdrawn intact. The patient tolerated the procedure well with no complications noted. documented in this encounter [facility] 09-23-2024 Progress note Formatting of t his note might be different from the original. The patient's most recent drug screen has been reviewed and is appropriate and consistent with current therapy. Erika Conway PA-C September 23, 2024 9:38 AM [facility] 09-23-2024 Miscellaneous Notes The patient's most recent drug screen has been reviewed and is appropriate and consistent with current therapy. Erika Conway PA-C September 23, 2024 9:38 AM documented in this encounter [facility] 09-18-2024 Instructions Erika Conway PA-C - 09/18/2024 1:36 PM EDT The OARRS report has been reviewed and is consistent with the patients medical history and medication intake. The patient underwent a random drug screen at today's office visit. The patient will continue with oxycodone but continue to work on cutting your daily use back by 1/2 ML at a time as tolerated. We will continue titrating down until we are able to get under 120 morphine equivalents per day. The patient was previously offered Narcan but declined. She states that there is absolutely no chance that somebody will overdose at home and she does not feel it is necessary at this time. She will call our office if she changes her mind. She was encouraged to keep herself physically active, stretch out, and exercise. Follow-up in office in 3 months Return for your already scheduled next set of Botox injections 10/06/24 Supervising Physician - Dr. Vini Mcdonald MD documented in this encounter [facility] 09-18-2024 Note HNO ID: [id number] Author: ERIKA CONWAY PA-C Service: ? Author Type: Physician Spot Checker Type: Progress Notes Filed: 09/18/2024 14:14 Note Text: This note was created using Attune Liveriter. Neto Aguilar is a 48 year old female. The patient primarily being seen for generalized body pain and migraines Patient was last seen on: 06/23/24 At that time, the treatment plan was: see notes Current Meds: oxycodone - am Efficacy: helps Side effects: denies TENS unit: How often used: Benefit: Physical Therapy: Last UDS: 09/18/24 Last injection: 09/10/24 - trigger point injections OARRS reviewed At the present time, the patient reports benefit with her present analgesic therapy. She denies any adverse effects. Since her previous visit, she denies any hospitalizations or ER visits. She states that the recent trigger point injections helped relieve 85% of her pain and allowed her to be more active. She is scheduled for her botox injections on 10/06/24. The set done 07/07/24 helped decrease the frequency and severity of her migraines by 90%. She is currently only having about one migraine a month. As long as she continues to receive the migraines every 3 months she is able to keep her migraines controlled with minimal interference with her ADLs and lower medication requirements to be able to function on a daily basis. 09/10/2024 09/17/2024 INTAKE PAIN ASSESSMENT Are you having pain associated with your visit today? Yes, Provider notified Pain Level 7 6 Pain Location Back-Lower Generalized Description Aching;Sore Aching;Numbness;Pressure;Radiati ng;Sore;Stiffness;Tenderness;Tig htness Duration Amount of Time 21 Duration Units Years Frequency Continuous Intervention/Comfort measure Medication;Other: See comment Comments Trigger point injections Pain Assessment Reassessment 06/23/2024 09/18/2024 Pain Disability Index Family/Home Responsibilities: This category includes chores or duties performed around the house (e.g. yard work), errands or favors for other family members (e.g. driving the children to school) 0 No Disability 0 No Disability Recreation: This category includes hobbies, sports, and other similar leisure time activities 0 No disability 0 No disability Social Activity: This category refers to activities which involve participation with friends and acquaintances, other than family members. It includes parties, theater, concerts, dinning out, and other social functions 0 No disability 0 No disability Occupation: This category refers to activities that are a part of or directly related to ones' job. This includes non-paying jobs as well, such as that of a housewife or volunteer worker 0 No disability 0 No disability Sexual Behavior: This category refers to the frequency and quality of one's sex life 0 No disability 0 No disability Self Care: This category includes activities which involve personal maintenance and independent daily living (e.g. 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 Other acne Persistent vomiting PAST SURGICAL HISTORY Procedure Laterality Date EAR TUBES HX ESOPHAGOGASTRODUODENOSCOPY TRANSORAL DIAGNOSTIC 01/04/03 EGD EXTRACTION, ERUPTED TOOTH OR EXPOSED ROOT (ELEVATION AND/OR FORCEPS REMOVAL) 99 WISODOM TEETH FOOT SURGERY HX HAMMERTOE REVISION, ONE TOE 95, 97 Bialteral/ hammertoe AND arches KNEE SURGERY HX MYRINGOTOMY ASPIRAND/EUSTACHIAN TUBE NFLTJ ANES 05/20 Myringotomy/tubes PAST SURGICAL HISTORY OF , 04, 03, FOOT, KNEE,ANKLES PAST SURGICAL HISTORY OF 2002 MUSCLE BIOPSY PAST SURGICAL HISTORY OF 1997 CARDIAC SURGERY TONSILLECTOMY AND ADENOIDECTOMY TONSILLECTOMY PRIMARY/SECONDARY Tonsillectomy Social History Tobacco Use Smoking status: Never Smokeless tobacco: Never Substance Use Topics Alcohol use: Yes Drug use: No Review of Systems Constitutional: Negative for fever and unexpected weight change. Musculoskeletal: + neck pain, back pain, numbness, tingling, muscle cramps/weakness, stiffness, arthritis, leg pain at night, and leg pain with exertion. Neurological: Positive for headaches. Objective BP 137/88 (BP Site: Left Arm, BP Position: Sitting, BP Cuff Size: Regular Adult) Pulse 110 Resp 18 Wt 47.2 kg (104 lb) LMP (LMP Unkn (more content not included)... [facility] 09-18-2024 History of Presen t illness Narrative This note was created using Attune Liveriter. Subjective Capri Aguilar is a 48 year old female. The patient primarily being seen for generalized body pain and migraines Patient was last seen on: 06/23/24 At that time, the treatment plan was: see notes Current Meds: oxycodone - am Efficacy: helps Side effects: denies TENS unit: How often used: Benefit: Physical Therapy: Last UDS: 09/18/24 Last injection: 09/10/24 - trigger point injections OARRS reviewed At the present time, the patient reports benefit with her present analgesic therapy. She denies any adverse effects. Since her previous visit, she denies any hospitalizations or ER visits. She states that the recent trigger point injections helped relieve 85% of her pain and allowed her to be more active. She is scheduled for her botox injections on 10/06/24. The set done 07/07/24 helped decrease the frequency and severity of her migraines by 90%. She is currently only having about one migraine a month. As long as she continues to receive the migraines every 3 months she is able to keep her migraines controlled with minimal interference with her ADLs and lower medication requirements to be able to function on a daily basis. 09/10/2024 09/17/2024 INTAKE PAIN ASSESSMENT Are you having pain associated with your visit today? Yes, Provider notified Pain Level 7 6 Pain Location Back-Lower Generalized Description Aching;Sore Aching;Numbness;Pressure;Radiati ng;Sore;Stiffness;Tenderness;Tig htness Duration Amount of Time 21 Duration Units Years Frequency Continuous Intervention/Comfort measure Medication;Other: See comment Comments Trigger point injections Pain Assessment Reassessment 06/23/2024 09/18/2024 Pain Disability Index Family/Home Responsibilities: This category includes chores or duties performed around the house (e.g. yard work), errands or favors for other family members (e.g. driving the children to school) 0 No Disability 0 No Disability Recreation: This category includes hobbies, sports, and other similar leisure time activities 0 No disability 0 No disability Social Activity: This category refers to activities which involve participation with friends and acquaintances, other than family members. It includes parties, theater, concerts, dinning out, and other social functions 0 No disability 0 No disability Occupation: This category refers to activities that are a part of or directly related to ones' job. This includes non-paying jobs as well, such as that of a housewife or volunteer worker 0 No disability 0 No disability Sexual Behavior: This category refers to the frequency and quality of one's sex life 0 No disability 0 No disability Self Care: This category includes activities which involve personal maintenance and independent daily living (e.g. 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 Musculoskeletal: + neck pain, back pain, numbness, tingling, muscle cramps/weakness, stiffness, arthritis, leg pain at night, and leg pain with exertion. Neurological: Positive for headaches. Objective BP 137/88 (BP Site: Left Arm, BP Position: Sitting, BP Cuff Size: Regular Adult) Pulse 110 Resp 18 Wt 47.2 kg (104 lb) LMP (LMP Unknown) SpO2 97% BMI 16.29 kg/m Physical Exam Vitals and nursing note reviewed. Constitutional: Appearance: Normal appearance. She is well-developed, well-groomed and normal weight. HENT: Head: Normocephalic and atraumatic. Right Ear: Hearing normal. Left Ear: Hearing normal. Eyes: Conjunctiva/sclera: Conjunctivae normal. Musculoskeletal: Comments: Patient walks with a normal gait. There is tenderness noted in the cervical and lumbar region with mild spasms noted in the trapezius, rhomboid, paraspinal, and latissimus dorsi muscles. These have improved following the trigger point injections done last week. The patient has multiple fibromyalgia tender points noted throughout the examination. Strength is 5/5 throughout. Sensation is intact to light touch throughout. SLR is negative. Neurological: Mental Status: She is alert and oriented to person, place, and time. Psychiatric: Attention and Perception: Attention and perception normal. Mood and Affect: Mood and affect normal. Speech: Speech normal. Behavior: Behavior normal. Behavior is cooperative. Thought Content: Thought content normal. Judgment: Judgment normal. Assessment and Plan ASSESSMENT/PLAN: 1. 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 Marfan's syndrome (HCC) - ICD9: 759.82, ICD10: Q87.40 4. Migraine, unspecified, without mention of intractable migraine without mention of status migrainosus - ICD9: 346.90, ICD10: G43.909 - TOXASSURE FLEX 23, URINE 5. Fibromyalgia - ICD9: 729.1, ICD10: M79.7 - TOXASSURE FLEX 23, URINE 6. Myofascial pain syndrome - ICD9: 729.1, ICD10: M79.18 - TOXASSURE FLEX 23, URINE 7. 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 - ICD9: V58.69, ICD10: Z79.891 - TOXASSURE FLEX 23, URINE PLAN: The OARRS report has been reviewed and is consistent with the patients medical history and medication intake. The patient underwent a random drug screen at today's office visit. The patient will continue with oxycodone but continue to work on cutting your daily use back by 1/2 ML at a time as tolerated. We will continue titrating down until we are able to get under 120 morphine equivalents per day. The patient was previously offered Narcan but declined. She states that there is absolutely no chance that somebody will overdose at home and she does not feel it is necessary at this time. She will call our office if she changes her mind. She was encouraged to keep herself physically active, stretch out, and exercise. Follow-up in office in 3 months Return for your already scheduled next set of Botox injections 10/06/24 (Two stable chronic illnesses/prescription drug management) Erika Conway PA-C Oxycodone am Med helps pain Denies side effects Last uds-09/18/24 09/10/24-TPI documented in this encounter [facility] 09-18-2024 Note HNO ID: [id number] Author: ANTONELLA VALLADARES RN Service: ? Author Type: Registered Nurse Type: Progress Notes Filed: 09/18/2024 14:14 Note Text: Oxycodone am Med helps pain Denies side effects Last uds-09/18/24 09/10/24-TPI [facility] 09-11-2024 Telephone encounter Note The following approved medication requests have been transmitted electronically. Requested Prescriptions Signed Prescriptions Disp Refills oxyCODONE concentrate (ROXICODONE) 20 mg/mL concentrated solution 150 mL 0 Sig: Take 0.5-1 mL by mouth every 4 hours as needed for pain for up to 25 days. Continue working on decreasing your dose by 0.5 mL at a time as tolerated. Authorizing Provider: ERIKA CONWAY PA-C [facility] 09-11-2024 Miscellaneous Notes The following approved medication requests have been transmitted electronically. Requested Prescriptions Signed Prescriptions Disp Refills oxyCODONE concentrate (ROXICODONE) 20 mg/mL concentrated solution 150 mL 0 Sig: Take 0.5-1 mL by mouth every 4 hours as needed for pain for up to 25 days. Continue working on decreasing your dose by 0.5 mL at a time as tolerated. Authorizing Provider: ERIKA CONWAY PA-C Patient phones requesting refills as follows: Requested Prescriptions Pending Prescriptions Disp Refills oxyCODONE concentrate (ROXICODONE) 20 mg/mL concentrated solution 150 mL 0 Sig: Take 0.5-1 mL by mouth every 4 hours as needed for pain for up to 25 days. Continue working on decreasing your dose by 0.5 mL at a time as tolerated. Last UDS: Opioid agreement signed 08/05/23. We will not be escalating opioid dosage Summary Report Date Value Ref Range Status 03/25/2024 FINAL Final Comment: ==== Opiate Class, MS, Ur RFX Oxycodone Class, MS, Ur RFX ToxAssure Flex 23, Ur ==== Test Result Flag Units Drug Present and Declared for Prescription Verification Oxycodone >4566 EXPECTED ng/mg creat Oxymorphone >4566 EXPECTED ng/mg creat Noroxycodone >4566 EXPECTED ng/mg creat Noroxymorphone 3451 EXPECTED ng/mg creat Sources of oxycodone are scheduled prescription medications. Oxymorphone, noroxycodone, and noroxymorphone are expected metabolites of oxycodone. Oxymorphone is also available as a scheduled prescription medication. ==== Test Result Flag Units Ref Range Creatinine 219 mg/dL >=20 ==== Declared Medications: The flagging and interpretation on this report are based on the following declared medications. Unexpected results may arise from inaccuracies in the declared medications. Note: The testing scope of this panel includes these medications: Oxycodone ==== For clinical consultation, please call . ==== No results found for: UQNOTE, OPIATEPNMGT, DRUGSCRPAIN Urine Panel: No results found for: UQCANN, UQBNZL, MAT5NBP, UQAMPH, UQMAMP, UQBUPRE, UQNORBUP, UQMTHD, UQEDDP, UQTRAM, UQDTRM, UQFNTL, UQNFTL, UQCODE, UQMORP, UQDCDN, UQHCOD, UQOXYC, UQHMOR, UQOXYM, UQCREA, UQPH, UQSPGR, UQOXID, UQSPQ Lab Results Component Value Date SUMM FINAL 03/25/2024 Summary Report (Summary) Date Value Ref Range Status 01/30/2022 FINAL Final Comment: ==== TOXASSURE COMP DRUG ANALYSIS,UR ==== Test Result Flag Units Drug Present Oxycodone 6739 ng/mg creat Oxymorphone >7299 ng/mg creat Noroxycodone >7299 ng/mg creat Noroxymorphone >7299 ng/mg creat Sources of oxycodone are scheduled prescription medications. Oxymorphone, noroxycodone, and noroxymorphone are expected metabolites of oxycodone. Oxymorphone is also available as a scheduled prescription medication. ==== Test Result Flag Units Ref Range Creatinine 137 mg/dL >=20 ==== Declared Medications: Medication list was not provided. ==== For clinical consultation, please call . ==== Last Opioid agreement effective date: 08/05/2023 Please review and advise. Alisa Lion RN documented in this encounter [facility] 09-11-2024 Telephone encounter Note Patient phones requesting refills as follows: Requested Prescriptions Pending Prescriptions Disp Refills oxyCODONE concentrate (ROXICODONE) 20 mg/mL concentrated solution 150 mL 0 Sig: Take 0.5-1 mL by mouth every 4 hours as needed for pain for up to 25 days. Continue working on decreasing your dose by 0.5 mL at a time as tolerated. Last UDS: Opioid agreement signed 08/05/23. We will not be escalating opioid dosage Summary Report Date Value Ref Range Status 03/25/2024 FINAL Final Comment: ==== Opiate Class, MS, Ur RFX Oxycodone Class, MS, Ur RFX ToxAssure Flex 23, Ur ==== Test Result Flag Units Drug Present and Declared for Prescription Verification Oxycodone >4566 EXPECTED ng/mg creat Oxymorphone >4566 EXPECTED ng/mg creat Noroxycodone >4566 EXPECTED ng/mg creat Noroxymorphone 3451 EXPECTED ng/mg creat Sources of oxycodone are scheduled prescription medications. Oxymorphone, noroxycodone, and noroxymorphone are expected metabolites of oxycodone. Oxymorphone is also available as a scheduled prescription medication. ==== Test Result Flag Units Ref Range Creatinine 219 mg/dL >=20 ==== Declared Medications: The flagging and interpretation on this report are based on the following declared medications. Unexpected results may arise from inaccuracies in the declared medications. Note: The testing scope of this panel includes these medications: Oxycodone ==== For clinical consultation, please call . ==== No results found for: UQNOTE, OPIATEPNMGT, DRUGSCRPAIN Urine Panel: No results found for: UQCANN, UQBNZL, AXK1MFQ, UQAMPH, UQMAMP, UQBUPRE, UQNORBUP, UQMTHD, UQEDDP, UQTRAM, UQDTRM, UQFNTL, UQNFTL, UQCODE, UQMORP, UQDCDN, UQHCOD, UQOXYC, UQHMOR, UQOXYM, UQCREA, UQPH, UQSPGR, UQOXID, UQSPQ Lab Results Component Value Date SUMM FINAL 03/25/2024 Summary Report (Summary) Date Value Ref Range Status 01/30/2022 FINAL Final Comment: ==== TOXASSURE COMP DRUG ANALYSIS,UR ==== Test Result Flag Units Drug Present Oxycodone 6739 ng/mg creat Oxymorphone >7299 ng/mg creat Noroxycodone >7299 ng/mg creat Noroxymorphone >7299 ng/mg creat Sources of oxycodone are scheduled prescription medications. Oxymorphone, noroxycodone, and noroxymorphone are expected metabolites of oxycodone. Oxymorphone is also available as a scheduled prescription medication. ==== Test Result Flag Units Ref Range Creatinine 137 mg/dL >=20 ==== Declared Medications: Medication list was not provided. ==== For clinical consultation, please call . ==== Last Opioid agreement effective date: 08/05/2023 Please review and advise. Alisa Lion RN [facility] 09-10-2024 Surgery Surgical operation note Summary: TPI PATIENT: Capri Aguilar SURGEON: Primary: Vini Mcdonald MD : 1975 DATE OF SURGERY: September 10, 2024 PRE-OP Diagnosis: Myofascial pain syndrome [M79.18] POST-OP Diagnosis: Same Procedure: Procedure(s): INJECTION TRIGGER POINT THREE OR MORE MUSCLES (lower back) Anesthesia Type: Local The following procedure was performed in the office today: Trigger Point Injection(s): (21811) -Informed consent was obtained and all patient questions were answered. After discussing the risks, benefits, prognosis, and alternatives to the procedure, the patient expressed understanding and wished to proceed. UNIVERSAL PROTOCOL / SAFETY CHECKLIST Procedure to be Performed: Trigger Point Injections Sign In: A Moment of CARE was completed. Appropriate PPE (Personal Protective Equipment) worn by all providers involved with the procedure. Special equipment not required. Patient/Surrogate Stated/Verified: Patient name, Date of , Relevant allergies, and The intended procedure Time Out: Relevant labs, photos, and/or imaging studies are not applicable. Intended patient and procedure match the source document(s) (e.g. consent, H&P, associated studies [imaging, pathology]) match the intended patient and procedure. Consent obtained and matches the intended procedure. Yes. Correct side/site has been marked and visible. Medications required for this procedure are verified. Fire risk assessed and is not applicable. Implants: are not applicable. Sign Out: Specimens not collected. All instruments, equipment, possible retained foreign bodies are accounted for. Yes. The post-procedure plan of care has been communicated to the patient or surrogate. -Procedure: The trigger points injections were performed today in the office with aseptic technique. The patient tolerated the procedure well and was discharged after an appropriate period of observation. Trigger points injected (#): 29 Muscle groups: Bilateral lumbar and thoracic paraspinous muscles, bilateral gluteus wayne Injectate: total of 10 mL of 0.25% bupivacaine; distributed equally at each site. [facility] Work Phone: 09-10-2024 Surgical operatio n note Summary: TPI PATIENT: Capri Aguilar SURGEON: Primary: Vini Mcdonald MD : 1975 DATE OF SURGERY: September 10, 2024 PRE-OP Diagnosis: Myofascial pain syndrome [M79.18] POST-OP Diagnosis: Same Procedure: Procedure(s): INJECTION TRIGGER POINT THREE OR MORE MUSCLES (lower back) Anesthesia Type: Local The following procedure was performed in the office today: Trigger Point Injection(s): (83568) -Informed consent was obtained and all patient questions were answered. After discussing the risks, benefits, prognosis, and alternatives to the procedure, the patient expressed understanding and wished to proceed. UNIVERSAL PROTOCOL / SAFETY CHECKLIST Procedure to be Performed: Trigger Point Injections Sign In: A Moment of CARE was completed. Appropriate PPE (Personal Protective Equipment) worn by all providers involved with the procedure. Special equipment not required. Patient/Surrogate Stated/Verified: Patient name, Date of , Relevant allergies, and The intended procedure Time Out: Relevant labs, photos, and/or imaging studies are not applicable. Intended patient and procedure match the source document(s) (e.g. consent, H&P, associated studies [imaging, pathology]) match the intended patient and procedure. Consent obtained and matches the intended procedure. Yes. Correct side/site has been marked and visible. Medications required for this procedure are verified. Fire risk assessed and is not applicable. Implants: are not applicable. Sign Out: Specimens not collected. All instruments, equipment, possible retained foreign bodies are accounted for. Yes. The post-procedure plan of care has been communicated to the patient or surrogate. -Procedure: The trigger points injections were performed today in the office with aseptic technique. The patient tolerated the procedure well and was discharged after an appropriate period of observation. Trigger points injected (#): 29 Muscle groups: Bilateral lumbar and thoracic paraspinous muscles, bilateral gluteus wayne Injectate: total of 10 mL of 0.25% bupivacaine; distributed equally at each site. documented in this encounter [facility] 09-10-2024 Note HNO ID: [id number] Author: KIMBERLI FREEDMAN RN Service: ? Author Type: Registered Nurse Type: Nursing Progress Note Filed: 09/10/2024 15:07 Note Text: Patient denies any blood thinners [facility] 09-10-2024 Nurse Note Patient denies any blood thinners [facility] 09-10-2024 Nurse Note Patient denies any blood thinners documented in this encounter [facility] 09-08-2024 Surgery Surgical operation note Summary: TPI PATIENT: Capri Aguilar SURGEON: Primary: Vini Mcdonald MD : 1975 DATE OF SURGERY: September 08, 2024 PRE-OP Diagnosis: Myofascial pain syndrome [M79.18] POST-OP Diagnosis: Same Procedure: Procedure(s): INJECTION TRIGGER POINT THREE OR MORE MUSCLES (neck/upper back) Anesthesia Type: Local The following procedure was performed in the office today: Trigger Point Injection(s): (98178) -Informed consent was obtained and all patient questions were answered. After discussing the risks, benefits, prognosis, and alternatives to the procedure, the patient expressed understanding and wished to proceed. UNIVERSAL PROTOCOL / SAFETY CHECKLIST Procedure to be Performed: Trigger point injections Sign In: A Moment of CARE was completed. Appropriate PPE (Personal Protective Equipment) worn by all providers involved with the procedure. Special equipment not required. Patient/Surrogate Stated/Verified: Patient name, Date of , Relevant allergies, and The intended procedure Time Out: Relevant labs, photos, and/or imaging studies are not applicable. Intended patient and procedure match the source document(s) (e.g. consent, H&P, associated studies [imaging, pathology]) match the intended patient and procedure. Consent obtained and matches the intended procedure. Yes. Correct side/site has been marked and visible. Medications required for this procedure are verified. Fire risk assessed and is not applicable. Implants: are not applicable. Sign Out: Specimens not collected. All instruments, equipment, possible retained foreign bodies are accounted for. Yes. The post-procedure plan of care has been communicated to the patient or surrogate. -Procedure: The trigger points injections were performed today in the office with aseptic technique. The patient tolerated the procedure well and was discharged after an appropriate period of observation. Trigger points injected (#): 34 Muscle groups: Bilateral cervical paraspinous, bilateral trapezius, bilateral thoracic paraspinous, bilateral rhomboids, bilateral supraspinatus Injectate: total of 17 mL of 0.25% bupivacaine; distributed equally at each site. [facility] Work Phone: 09-08-2024 Surgical operatio n note Summary: TPI PATIENT: Capri Aguilar SURGEON: Primary: Vini Mcdonald MD : 1975 DATE OF SURGERY: September 08, 2024 PRE-OP Diagnosis: Myofascial pain syndrome [M79.18] POST-OP Diagnosis: Same Procedure: Procedure(s): INJECTION TRIGGER POINT THREE OR MORE MUSCLES (neck/upper back) Anesthesia Type: Local The following procedure was performed in the office today: Trigger Point Injection(s): () -Informed consent was obtained and all patient questions were answered. After discussing the risks, benefits, prognosis, and alternatives to the procedure, the patient expressed understanding and wished to proceed. UNIVERSAL PROTOCOL / SAFETY CHECKLIST Procedure to be Performed: Trigger point injections Sign In: A Moment of CARE was completed. Appropriate PPE (Personal Protective Equipment) worn by all providers involved with the procedure. Special equipment not required. Patient/Surrogate Stated/Verified: Patient name, Date of , Relevant allergies, and The intended procedure Time Out: Relevant labs, photos, and/or imaging studies are not applicable. Intended patient and procedure match the source document(s) (e.g. consent, H&P, associated studies [imaging, pathology]) match the intended patient and procedure. Consent obtained and matches the intended procedure. Yes. Correct side/site has been marked and visible. Medications required for this procedure are verified. Fire risk assessed and is not applicable. Implants: are not applicable. Sign Out: Specimens not collected. All instruments, equipment, possible retained foreign bodies are accounted for. Yes. The post-procedure plan of care has been communicated to the patient or surrogate. -Procedure: The trigger points injections were performed today in the office with aseptic technique. The patient tolerated the procedure well and was discharged after an appropriate period of observation. Trigger points injected (#): 34 Muscle groups: Bilateral cervical paraspinous, bilateral trapezius, bilateral thoracic paraspinous, bilateral rhomboids, bilateral supraspinatus Injectate: total of 17 mL of 0.25% bupivacaine; distributed equally at each site. documented in this encounter [facility] 08-14-2024 Telephone encounter Note The orders are in for both sets of trigger points, she just needs scheduled please. [facility] 08-14-2024 Miscellaneous Notes The orders are in for both sets of trigger points, she just needs scheduled please. Dr Mcdonald, This message was received today. Please advise. Thank you, Ana King August 14, 2024 1:21 PM Ana: Please contact pt as to below requested procedure scheduling request. Thank you, Suzette Alcala RN August 14, 2024 1:18 PM documented in this encounter [facility] 08-14-[address] Mcdonald, This message was received today. Please advise. Thank you, Ana King August 14, 2024 1:21 PM [facility] 08-14-2024 Telephone encounter Note Ana: Please contact pt as to below requested procedure scheduling request. Thank you, Suzette Alcala RN August 14, 2024 1:18 PM [facility] 08-13-2024 Telephone encounter Note The following approved medication requests have been transmitted electronically. Requested Prescriptions Signed Prescriptions Disp Refills oxyCODONE concentrate (ROXICODONE) 20 mg/mL concentrated solution 150 mL 0 Sig: Take 0.5-1 mL by mouth every 4 hours as needed for pain for up to 25 days. Continue working on decreasing your dose by 0.5 mL at a time as tolerated. Authorizing Provider: ERIKA CONWAY PA-C [facility] 08-13-2024 Miscellaneous Notes The following approved medication requests have been transmitted electronically. Requested Prescriptions Signed Prescriptions Disp Refills oxyCODONE concentrate (ROXICODONE) 20 mg/mL concentrated solution 150 mL 0 Sig: Take 0.5-1 mL by mouth every 4 hours as needed for pain for up to 25 days. Continue working on decreasing your dose by 0.5 mL at a time as tolerated. Authorizing Provider: ERIKA CONWAY PA-C Patient phones requesting refills as follows: Requested Prescriptions Pending Prescriptions Disp Refills oxyCODONE concentrate (ROXICODONE) 20 mg/mL concentrated solution 150 mL 0 Sig: Take 0.5-1 mL by mouth every 4 hours as needed for pain for up to 25 days. Last UDS: Opioid agreement signed 08/05/23. We will not be escalating opioid dosage Summary Report Date Value Ref Range Status 03/25/2024 FINAL Final Comment: ==== Opiate Class, MS, Ur RFX Oxycodone Class, MS, Ur RFX ToxAssure Flex 23, Ur ==== Test Result Flag Units Drug Present and Declared for Prescription Verification Oxycodone >4566 EXPECTED ng/mg creat Oxymorphone >4566 EXPECTED ng/mg creat Noroxycodone >4566 EXPECTED ng/mg creat Noroxymorphone 3451 EXPECTED ng/mg creat Sources of oxycodone are scheduled prescription medications. Oxymorphone, noroxycodone, and noroxymorphone are expected metabolites of oxycodone. Oxymorphone is also available as a scheduled prescription medication. ==== Test Result Flag Units Ref Range Creatinine 219 mg/dL >=20 ==== Declared Medications: The flagging and interpretation on this report are based on the following declared medications. Unexpected results may arise from inaccuracies in the declared medications. Note: The testing scope of this panel includes these medications: Oxycodone ==== For clinical consultation, please call . ==== No results found for: UQNOTE, OPIATEPNMGT, DRUGSCRPAIN Urine Panel: No results found for: UQCANN, UQBNZL, LMT9QAE, UQAMPH, UQMAMP, UQBUPRE, UQNORBUP, UQMTHD, UQEDDP, UQTRAM, UQDTRM, UQFNTL, UQNFTL, UQCODE, UQMORP, UQDCDN, UQHCOD, UQOXYC, UQHMOR, UQOXYM, UQCREA, UQPH, UQSPGR, UQOXID, UQSPQ Lab Results Component Value Date SUMM FINAL 03/25/2024 Summary Report (Summary) Date Value Ref Range Status 01/30/2022 FINAL Final Comment: ==== TOXASSURE COMP DRUG ANALYSIS,UR ==== Test Result Flag Units Drug Present Oxycodone 6739 ng/mg creat Oxymorphone >7299 ng/mg creat Noroxycodone >7299 ng/mg creat Noroxymorphone >7299 ng/mg creat Sources of oxycodone are scheduled prescription medications. Oxymorphone, noroxycodone, and noroxymorphone are expected metabolites of oxycodone. Oxymorphone is also available as a scheduled prescription medication. ==== Test Result Flag Units Ref Range Creatinine 137 mg/dL >=20 ==== Declared Medications: Medication list was not provided. ==== For clinical consultation, please call . ==== Last Opioid agreement effective date: 08/05/2023 Please review and advise. Allie Bass RN documented in this encounter [facility] 08-13-2024 Telephone encounter Note Patient phones requesting refills as follows: Requested Prescriptions Pending Prescriptions Disp Refills oxyCODONE concentrate (ROXICODONE) 20 mg/mL concentrated solution 150 mL 0 Sig: Take 0.5-1 mL by mouth every 4 hours as needed for pain for up to 25 days. Last UDS: Opioid agreement signed 08/05/23. We will not be escalating opioid dosage Summary Report Date Value Ref Range Status 03/25/2024 FINAL Final Comment: ==== Opiate Class, MS, Ur RFX Oxycodone Class, MS, Ur RFX ToxAssure Flex 23, Ur ==== Test Result Flag Units Drug Present and Declared for Prescription Verification Oxycodone >4566 EXPECTED ng/mg creat Oxymorphone >4566 EXPECTED ng/mg creat Noroxycodone >4566 EXPECTED ng/mg creat Noroxymorphone 3451 EXPECTED ng/mg creat Sources of oxycodone are scheduled prescription medications. Oxymorphone, noroxycodone, and noroxymorphone are expected metabolites of oxycodone. Oxymorphone is also available as a scheduled prescription medication. ==== Test Result Flag Units Ref Range Creatinine 219 mg/dL >=20 ==== Declared Medications: The flagging and interpretation on this report are based on the following declared medications. Unexpected results may arise from inaccuracies in the declared medications. Note: The testing scope of this panel includes these medications: Oxycodone ==== For clinical consultation, please call . ==== No results found for: UQNOTE, OPIATEPNMGT, DRUGSCRPAIN Urine Panel: No results found for: UQCANN, UQBNZL, BAL9OJG, UQAMPH, UQMAMP, UQBUPRE, UQNORBUP, UQMTHD, UQEDDP, UQTRAM, UQDTRM, UQFNTL, UQNFTL, UQCODE, UQMORP, UQDCDN, UQHCOD, UQOXYC, UQHMOR, UQOXYM, UQCREA, UQPH, UQSPGR, UQOXID, UQSPQ Lab Results Component Value Date SUMM FINAL 03/25/2024 Summary Report (Summary) Date Value Ref Range Status 01/30/2022 FINAL Final Comment: ==== TOXASSURE COMP DRUG ANALYSIS,UR ==== Test Result Flag Units Drug Present Oxycodone 6739 ng/mg creat Oxymorphone >7299 ng/mg creat Noroxycodone >7299 ng/mg creat Noroxymorphone >7299 ng/mg creat Sources of oxycodone are scheduled prescription medications. Oxymorphone, noroxycodone, and noroxymorphone are expected metabolites of oxycodone. Oxymorphone is also available as a scheduled prescription medication. ==== Test Result Flag Units Ref Range Creatinine 137 mg/dL >=20 ==== Declared Medications: Medication list was not provided. ==== For clinical consultation, please call . ==== Last Opioid agreement effective date: 08/05/2023 Please review and advise. Allie Bass RN [facility] 07-16-2024 Surgery Surgical operation note Summary: TPI PATIENT: Capri Aguilar SURGEON: Primary: Vini Mcdonald MD : 1975 DATE OF SURGERY: July 16, 2024 PRE-OP Diagnosis: Myofascial pain syndrome [M79.18] POST-OP Diagnosis: Same Procedure: Procedure(s): INJECTION TRIGGER POINT THREE OR MORE MUSCLES (Lower) Anesthesia Type: Local The following procedure was performed in the office today: Trigger Point Injection(s): (25724) -Informed consent was obtained and all patient questions were answered. After discussing the risks, benefits, prognosis, and alternatives to the procedure, the patient expressed understanding and wished to proceed. A pre-procedural pause was conducted to verify: correct patient identity, procedure to be performed and as applicable, correct side and site, correct patient position, and any special requirements. -Procedure: The trigger points injections were performed today in the office with aseptic technique. The patient tolerated the procedure well and was discharged after an appropriate period of observation. Trigger points injected (#): 27 Muscle groups: Bilateral lumbar paraspinous, bilateral thoracic paraspinous, bilateral gluteus wayne Injectate: total of 10 mL of 0.25% bupivacaine; distributed equally at each site. [facility] Work Phone: 07-16-2024 Surgical operatio n note Summary: TPI PATIENT: Capri Aguilar SURGEON: Primary: Vini Mcdonald MD : 1975 DATE OF SURGERY: July 16, 2024 PRE-OP Diagnosis: Myofascial pain syndrome [M79.18] POST-OP Diagnosis: Same Procedure: Procedure(s): INJECTION TRIGGER POINT THREE OR MORE MUSCLES (Lower) Anesthesia Type: Local The following procedure was performed in the office today: Trigger Point Injection(s): () -Informed consent was obtained and all patient questions were answered. After discussing the risks, benefits, prognosis, and alternatives to the procedure, the patient expressed understanding and wished to proceed. A pre-procedural pause was conducted to verify: correct patient identity, procedure to be performed and as applicable, correct side and site, correct patient position, and any special requirements. -Procedure: The trigger points injections were performed today in the office with aseptic technique. The patient tolerated the procedure well and was discharged after an appropriate period of observation. Trigger points injected (#): 27 Muscle groups: Bilateral lumbar paraspinous, bilateral thoracic paraspinous, bilateral gluteus awyne Injectate: total of 10 mL of 0.25% bupivacaine; distributed equally at each site. documented in this encounter [facility] 07-16-2024 Note HNO ID: [id number] Author: KIMBERLI FREEDMAN RN Service: ? Author Type: Registered Nurse Type: Nursing Progress Note Filed: 07/16/2024 14:57 Note Text: Patient denies blood thinners [facility] 07-16-2024 Nurse Note Patient denies blood thinners [facility] 07-16-2024 Nurse Note Patient denies blood thinners documented in this encounter [facility] 07-14-2024 Surgery Surgical operation note Summary: TPI PATIENT: Capri Aguilar SURGEON: Primary: Vini Mcdonald MD : 1975 DATE OF SURGERY: July 14, 2024 PRE-OP Diagnosis: Myofascial pain syndrome [M79.18] POST-OP Diagnosis: Same Procedure: Procedure(s): INJECTION TRIGGER POINT THREE OR MORE MUSCLES (upper back) Anesthesia Type: Local The following procedure was performed in the office today: Trigger Point Injection(s): () -Informed consent was obtained and all patient questions were answered. After discussing the risks, benefits, prognosis, and alternatives to the procedure, the patient expressed understanding and wished to proceed. A pre-procedural pause was conducted to verify: correct patient identity, procedure to be performed and as applicable, correct side and site, correct patient position, and any special requirements. -Procedure: The trigger points injections were performed today in the office with aseptic technique. The patient tolerated the procedure well and was discharged after an appropriate period of observation. Trigger points injected (#): 34 Muscle groups: Bilateral cervicals paraspinous, splenis capitis, trapezius, thoracic paraspinous, rhomboids Injectate: total of 18 mL of 0.25% bupivacaine; distributed equally at each site. [facility] Work Phone: 07-14-2024 Surgical operatio n note Summary: TPI PATIENT: Capri Lynch Aguilar SURGEON: Primary: Vini Mcdonald MD : 1975 DATE OF SURGERY: July 14, 2024 PRE-OP Diagnosis: Myofascial pain syndrome [M79.18] POST-OP Diagnosis: Same Procedure: Procedure(s): INJECTION TRIGGER POINT THREE OR MORE MUSCLES (upper back) Anesthesia Type: Local The following procedure was performed in the office today: Trigger Point Injection(s): (82296) -Informed consent was obtained and all patient questions were answered. After discussing the risks, benefits, prognosis, and alternatives to the procedure, the patient expressed understanding and wished to proceed. A pre-procedural pause was conducted to verify: correct patient identity, procedure to be performed and as applicable, correct side and site, correct patient position, and any special requirements. -Procedure: The trigger points injections were performed today in the office with aseptic technique. The patient tolerated the procedure well and was discharged after an appropriate period of observation. Trigger points injected (#): 34 Muscle groups: Bilateral cervicals paraspinous, splenis capitis, trapezius, thoracic paraspinous, rhomboids Injectate: total of 18 mL of 0.25% bupivacaine; distributed equally at each site. documented in this encounter [facility] 07-07-2024 Surgery Surgical operation note Summary: Botox Injections PATIENT: Capri Aguilar SURGEON: Primary: Vini Mcdonald MD : 1975 DATE OF SURGERY: July 07, 2024 PRE-OP Diagnosis: Migraine, unspecified, without mention of intractable migraine without mention of status migrainosus [G43.909] POST-OP Diagnosis: Same Procedure: Procedure(s): CHEMODENERVATION OF MUSCLE (S), MUSCLE (S) INNERVATED BY FACIAL NERVE Anesthesia Type: Local The following procedure was performed in the office today: Botox Injection PROCEDURE: Botox injection CPT code: 24212 PREPROCEDURE DIAGNOSIS: Migraine headache POSTPROCEDURE DIAGNOSIS: same ANESTHESIA: none PROCEDURE REPORT: The risks and benefits of the procedure were explained to the patient and all questions were answered. The patient gave consent to proceed with the procedure. The skin was prepped with alcohol. BOTOX Lot Number: [id number] BOTOX was reconstituted to a concentration of 5 U/0.1mL. The following injections were made using a 30G needle: 5 Botox units to the procerus muscle 5 Botox units to the right senior hydrogeologist supercilii muscle 5 Botox units to the left senior hydrogeologist supercilii muscle 20 Botox units to the frontalis muscle 25 Botox units to the right temporalis muscle 25 Botox units to the left temporalis muscle 20 Botox units to the right occipitalis muscle 20 Botox units to the left occipitalis muscle 15 Botox units to the right cervical paraspinals 15 Botox units to the left cervical paraspinals The needle was withdrawn intact. The patient tolerated the procedure well with no complications noted. [facility] Work Phone: 07-07-2024 Surgical operatio n note Summary: Botox Injections PATIENT: Capri Aguilar SURGEON: Primary: Vini Mcdonald MD : 1975 DATE OF SURGERY: July 07, 2024 PRE-OP Diagnosis: Migraine, unspecified, without mention of intractable migraine without mention of status migrainosus [G43.909] POST-OP Diagnosis: Same Procedure: Procedure(s): CHEMODENERVATION OF MUSCLE (S), MUSCLE (S) INNERVATED BY FACIAL NERVE Anesthesia Type: Local The following procedure was performed in the office today: Botox Injection PROCEDURE: Botox injection CPT code: 61766 PREPROCEDURE DIAGNOSIS: Migraine headache POSTPROCEDURE DIAGNOSIS: same ANESTHESIA: none PROCEDURE REPORT: The risks and benefits of the procedure were explained to the patient and all questions were answered. The patient gave consent to proceed with the procedure. The skin was prepped with alcohol. BOTOX Lot Number: [id number] BOTOX was reconstituted to a concentration of 5 U/0.1mL. The following injections were made using a 30G needle: 5 Botox units to the procerus muscle 5 Botox units to the right senior hydrogeologist supercilii muscle 5 Botox units to the left senior hydrogeologist supercilii muscle 20 Botox units to the frontalis muscle 25 Botox units to the right temporalis muscle 25 Botox units to the left temporalis muscle 20 Botox units to the right occipitalis muscle 20 Botox units to the left occipitalis muscle 15 Botox units to the right cervical paraspinals 15 Botox units to the left cervical paraspinals The needle was withdrawn intact. The patient tolerated the procedure well with no complications noted. documented in this encounter [facility] 06-23-2024 Instructions Erika Conway PA-C - 06/23/2024 1:13 PM EST The OARRS report has been reviewed and is consistent with the patients medical history and medication intake. The patient will continue with oxycodone but we will have her start working on cutting back by 1/2 ML at a time as tolerated and will continue titrating down until we are able to get her under 120 morphine equivalents per day. The patient was previously offered Narcan but declined. She states that there is absolutely no chance that somebody will overdose at home and she does not feel it is necessary at this time. She was encouraged to keep herself physically active, stretch out, and exercise. Follow-up in office in 3 months Return for your already scheduled next set of Botox injections July 07. Schedule trigger point injections in the mid back x 1 visit and in the lower back visit x 1 visit Supervising Physician - Dr. Vini Mcdonald MD documented in this encounter [facility] 06-23-2024 Note HNO ID: [id number] Author: ERIKA CONWAY PA-C Service: ? Author Type: Physician Spot Checker Type: Progress Notes Filed: 06/23/2024 13:47 Note Text: This note was created using Att[employer] Liver[employer]. Subjective Capri Aguilar is a 48 year old female. The patient primarily being seen for generalized pain and migraines Patient was last seen on: 03/25/24 At that time, the treatment plan was: see notes Current Meds: oxycodone - 11 am Efficacy: help Side effects: denies TENS unit: didn't help How often used: Benefit: Physical Therapy: Last UDS: 03/25/24 Last injection: 04/02/24 - BOTOX, 05/12/24 (neck/upper back) and 05/19/24 (low back) TPI OARRS reviewed At the present time, the patient reports benefit with her present analgesic therapy. She denies any adverse effects. Since her previous visit, she denies any hospitalizations or ER visits. She states that the BOTOX injections helped decrease her migraines by 85%. She may have 1 a week or less now. She has her next set of BOTOX injections scheduled for 07/07/24. As stated at a previous office visit, by making sure she keeps them scheduled on a 3 month interval, her migraines stay adequately maintained. If she waits longer than that, then the migraines increase to up to 2-3 times a week requiring increased medication use and possible trips to the ER for relief if she is not able to get them resolved with the medications. The trigger point injections helped relieve 75% of her pain and have allowed her to be more active. She would like to get her next set scheduled 05/19/2024 06/22/2024 INTAKE PAIN ASSESSMENT Are you having pain associated with your visit today? Yes, Provider notified Pain Level 7 6 Pain Location Back-Middle Generalized Description Aching;Throbbing;Sore Aching;Numbness;Pressure;Radiati ng;Sore;Stiffness;Tightness Duration Amount of Time 12 Duration Units Years Frequency Continuous Intervention/Comfort measure Distractions Pain Assessment Reassessment HPI PAST MEDICAL HISTORY Diagnosis Date Acute gastritis without mention of hemorrhage CHARCOT Goywwga-Hotmc-fmisn disease, deafness, and intellectual disability syndrome Eczema [...] REVISION, ONE TOE 95, 97 Bialteral/ hammertoe AND arches KNEE SURGERY HX MYRINGOTOMY ASPIRAND/EUSTACHIAN TUBE NFLTJ ANES 05/20 Myringotomy/tubes PAST SURGICAL HISTORY OF , 04, 03, FOOT, KNEE,ANKLES PAST SURGICAL HISTORY OF 2002 MUSCLE BIOPSY PAST SURGICAL HISTORY OF 1997 CARDIAC SURGERY TONSILLECTOMY AND ADENOIDECTOMY TONSILLECTOMY PRIMARY/SECONDARY Tonsillectomy Social History Tobacco Use Smoking status: Never Smokeless tobacco: Never Substance Use Topics Alcohol use: Yes Drug use: No Review of Systems Constitutional: Negative for fever and unexpected weight change. Musculoskeletal: + neck pain, back pain, numbness, tingling, muscle cramps/weakness, stiffness, arthritis, leg pain at night, and leg pain with exertion. Neurological: Positive for headaches. Objective BP 119/74 (BP Site: Left Arm, BP Position: Sitting) Pulse 90 Resp 16 LMP (LMP Unknown) SpO2 100% Physical Exam Vitals and nursing note reviewed. Constitutional: Appearance: Normal appearance. She is well-developed, well-groomed and normal weight. HENT: Head: Normocephalic and atraumatic. Right Ear: Hearing normal. Left Ear: Hearing normal. Eyes: Conjunctiva/sclera: Conjunctivae normal. Musculoskeletal: Comments: Patient walks with a normal gait. There is tenderness noted in the cervical and lumbar region with spasms noted in the trapezius, rhomboid, paraspinal, and latissimus dorsi muscles. The patient has multiple fibromyalgia tender points noted throughout the examination. Strength is 5/5 throughout. Sensation is intact to light touch throughout. SLR is negative. Neurological: Mental Status: She is alert and oriented to person, place, and time. Psychiatric: Attention and Perception: Attention and perception normal. Mood and Affect: Mood and affect normal. Speech: Speech normal. Behavior: Behavior normal. Behavior is cooperative. Thought Content: Thought content normal. Judgment: Judgment normal. Assessment and Plan ASSESSMENT/PLAN: 1. 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 [facility] 06-23-2024 History of Presen t illness Narrative This note was created using NoteWriter. Subjective Capri Aguilar is a 48 year old female. The patient primarily being seen for generalized pain and migraines Patient was last seen on: 03/25/24 At that time, the treatment plan was: see notes Current Meds: oxycodone - 11 am Efficacy: help Side effects: denies TENS unit: didn't help How often used: Benefit: Physical Therapy: Last UDS: 03/25/24 Last injection: 04/02/24 - BOTOX, 05/12/24 (neck/upper back) and 05/19/24 (low back) TPI OARRS reviewed At the present time, the patient reports benefit with her present analgesic therapy. She denies any adverse effects. Since her previous visit, she denies any hospitalizations or ER visits. She states that the BOTOX injections helped decrease her migraines by 85%. She may have 1 a week or less now. She has her next set of BOTOX injections scheduled for 07/07/24. As stated at a previous office visit, by making sure she keeps them scheduled on a 3 month interval, her migraines stay adequately maintained. If she waits longer than that, then the migraines increase to up to 2-3 times a week requiring increased medication use and possible trips to the ER for relief if she is not able to get them resolved with the medications. The trigger point injections helped relieve 75% of her pain and have allowed her to be more active. She would like to get her next set scheduled 05/19/2024 06/22/2024 INTAKE PAIN ASSESSMENT Are you having pain associated with your visit today? Yes, Provider notified Pain Level 7 6 Pain Location Back-Middle Generalized Description Aching;Throbbing;Sore Aching;Numbness;Pressure;Radiati ng;Sore;Stiffness;Tightness Duration Amount of Time 12 Duration Units Years Frequency Continuous Intervention/Comfort measure Distractions Pain Assessment Reassessment HPI PAST MEDICAL HISTORY Diagnosis Date Acute gastritis without mention of hemorrhage CHARCOT Uhnxork-Uzrxc-pmfom disease, deafness, and intellectual disability syndrome Eczema [...] 14 TONSILLECTOMY PRIMARY/SECONDARY <AGE 14 1982 Tonsillectomy Social History Tobacco Use Smoking status: Never Smokeless tobacco: Never Substance Use Topics Alcohol use: Yes Drug use: No Review of Systems Constitutional: Negative for fever and unexpected weight change. Musculoskeletal: + neck pain, back pain, numbness, tingling, muscle cramps/weakness, stiffness, arthritis, leg pain at night, and leg pain with exertion. Neurological: Positive for headaches. Objective BP 119/74 (BP Site: Left Arm, BP Position: Sitting) Pulse 90 Resp 16 LMP (LMP Unknown) SpO2 100% Physical Exam Vitals and nursing note reviewed. Constitutional: Appearance: Normal appearance. She is well-developed, well-groomed and normal weight. HENT: Head: Normocephalic and atraumatic. Right Ear: Hearing normal. Left Ear: Hearing normal. Eyes: Conjunctiva/sclera: Conjunctivae normal. Musculoskeletal: Comments: Patient walks with a normal gait. There is tenderness noted in the cervical and lumbar region with spasms noted in the trapezius, rhomboid, paraspinal, and latissimus dorsi muscles. The patient has multiple fibromyalgia tender points noted throughout the examination. Strength is 5/5 throughout. Sensation is intact to light touch throughout. SLR is negative. Neurological: Mental Status: She is alert and oriented to person, place, and time. Psychiatric: Attention and Perception: Attention and perception normal. Mood and Affect: Mood and affect normal. Speech: Speech normal. Behavior: Behavior normal. Behavior is cooperative. Thought Content: Thought content normal. Judgment: Judgment normal. Assessment and Plan ASSESSMENT/PLAN: 1. 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 Fibromyalgia - ICD9: 729.1, ICD10: M79.7 4. 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 - ICD9: 346.73, ICD10: G43.711 PLAN: The OARRS report has been reviewed and is consistent with the patients medical history and medication intake. The patient will continue with oxycodone but we will have her start working on cutting back by 1/2 ML at a time as tolerated and will continue titrating down until we are able to get her under 120 morphine equivalents per day. The patient was previously offered Narcan but declined. She states that there is absolutely no chance that somebody will overdose at home and she does not feel it is necessary at this time. She was encouraged to keep herself physically active, stretch out, and exercise. Follow-up in office in 3 months Return for your already scheduled next set of Botox injections July 07. Schedule trigger point injections in the mid back x 1 visit and in the lower back visit x 1 visit (Two stable chronic illnesses/prescription drug management) Erika Conway PA-C documented in this encounter [facility] 06-16-2024 Telephone encounter Note The following approved medication requests have been transmitted electronically. Requested Prescriptions Signed Prescriptions Disp Refills oxyCODONE concentrate (ROXICODONE) 20 mg/mL concentrated solution 150 mL 0 Sig: Take 0.5-1 mL by mouth every 4 hours as needed for pain for up to 25 days. Take 0.5-1mL every 4 hours as needed for pain for up to 25 days Patient should start on June 18, 2024. Authorizing Provider: ERIKA CONWAY PA-C [facility] 06-16-2024 Miscellaneous Notes The following approved medication requests have been transmitted electronically. Requested Prescriptions Signed Prescriptions Disp Refills oxyCODONE concentrate (ROXICODONE) 20 mg/mL concentrated solution 150 mL 0 Sig: Take 0.5-1 mL by mouth every 4 hours as needed for pain for up to 25 days. Take 0.5-1mL every 4 hours as needed for pain for up to 25 days Patient should start on June 18, 2024. Authorizing Provider: ERIKA CONWAY PA-C Patient phones [...] We will not be escalating opioid dosage Opioid agreement signed 08/05/23. Summary Report Date Value Ref Range Status 03/25/2024 FINAL Final Comment: ==== Opiate Class, MS, Ur RFX Oxycodone Class, MS, Ur RFX ToxAssure Flex 23, Ur ==== Test Result Flag Units Drug Present and Declared for Prescription Verification Oxycodone >4566 EXPECTED ng/mg creat Oxymorphone >4566 EXPECTED ng/mg creat Noroxycodone >4566 EXPECTED ng/mg creat Noroxymorphone 3451 EXPECTED ng/mg creat Sources of oxycodone are scheduled prescription medications. Oxymorphone, noroxycodone, and noroxymorphone are expected metabolites of oxycodone. Oxymorphone is also available as a scheduled prescription medication. ==== Test Result Flag Units Ref Range Creatinine 219 mg/dL >=20 ==== Declared Medications: The flagging and interpretation on this report are based on the following declared medications. Unexpected results may arise from inaccuracies in the declared medications. Note: The testing scope of this panel includes these medications: Oxycodone ==== For clinical consultation, please call . ==== No results found for: UQNOTE, OPIATEPNMGT, DRUGSCRPAIN Urine Panel: No results found for: UQCANN, UQBNZL, WOF1MQW, UQAMPH, UQMAMP, UQBUPRE, UQNORBUP, UQMTHD, UQEDDP, UQTRAM, UQDTRM, UQFNTL, UQNFTL, UQCODE, UQMORP, UQDCDN, UQHCOD, UQOXYC, UQHMOR, UQOXYM, UQCREA, UQPH, UQSPGR, UQOXID, UQSPQ @FLOW([id number])@ Lab Results Component Value Date SUMM FINAL 03/25/2024 Summary Report (Summary) Date Value Ref Range Status 01/30/2022 FINAL Final Comment: ==== TOXASSURE COMP DRUG ANALYSIS,UR ==== Test Result Flag Units Drug Present Oxycodone 6739 ng/mg creat Oxymorphone >7299 ng/mg creat Noroxycodone >7299 ng/mg creat Noroxymorphone >7299 ng/mg creat Sources of oxycodone are scheduled prescription medications. Oxymorphone, noroxycodone, and noroxymorphone are expected metabolites of oxycodone. Oxymorphone is also available as a scheduled prescription medication. ==== Test Result Flag Units Ref Range Creatinine 137 mg/dL >=20 ==== Declared Medications: Medication list was not provided. ==== For clinical consultation, please call . ==== Last Opioid agreement effective date: 08/05/2023 Please review and advise. Zonia Desai RN documented in this encounter [facility] 06-16-2024 Telephone encounter Note Patient phones requesting refills as follows: Requested [...] We will not be escalating opioid dosage Opioid agreement signed 08/05/23. Summary Report Date Value Ref Range Status 03/25/2024 FINAL Final Comment: ==== Opiate Class, MS, Ur RFX Oxycodone Class, MS, Ur RFX ToxAssure Flex 23, Ur ==== Test Result Flag Units Drug Present and Declared for Prescription Verification Oxycodone >4566 EXPECTED ng/mg creat Oxymorphone >4566 EXPECTED ng/mg creat Noroxycodone >4566 EXPECTED ng/mg creat Noroxymorphone 3451 EXPECTED ng/mg creat Sources of oxycodone are scheduled prescription medications. Oxymorphone, noroxycodone, and noroxymorphone are expected metabolites of oxycodone. Oxymorphone is also available as a scheduled prescription medication. ==== Test Result Flag Units Ref Range Creatinine 219 mg/dL >=20 ==== Declared Medications: The flagging and interpretation on this report are based on the following declared medications. Unexpected results may arise from inaccuracies in the declared medications. Note: The testing scope of this panel includes these medications: Oxycodone ==== For clinical consultation, please call . ==== No results found for: UQNOTE, OPIATEPNMGT, DRUGSCRPAIN Urine Panel: No results found for: UQCANN, UQBNZL, MFK8BUI, UQAMPH, UQMAMP, UQBUPRE, UQNORBUP, UQMTHD, UQEDDP, UQTRAM, UQDTRM, UQFNTL, UQNFTL, UQCODE, UQMORP, UQDCDN, UQHCOD, UQOXYC, UQHMOR, UQOXYM, UQCREA, UQPH, UQSPGR, UQOXID, UQSPQ @FLOW([id number])@ Lab Results Component Value Date SUMM FINAL 03/25/2024 Summary Report (Summary) Date Value Ref Range Status 01/30/2022 FINAL Final Comment: ==== TOXASSURE COMP DRUG ANALYSIS,UR ==== Test Result Flag Units Drug Present Oxycodone 6739 ng/mg creat Oxymorphone >7299 ng/mg creat Noroxycodone >7299 ng/mg creat Noroxymorphone >7299 ng/mg creat Sources of oxycodone are scheduled prescription medications. Oxymorphone, noroxycodone, and noroxymorphone are expected metabolites of oxycodone. Oxymorphone is also available as a scheduled prescription medication. ==== Test Result Flag Units Ref Range Creatinine 137 mg/dL >=20 ==== Declared Medications: Medication list was not provided. ==== For clinical consultation, please call . ==== Last Opioid agreement effective date: 08/05/2023 Please review and advise. Zonia Desai RN [facility] 05-19-2024 Note HNO ID: [id number] Author: VINI MCDONALD MD Service: ? Author Type: Anesthesiologist Type: Progress Notes Filed: 05/19/2024 15:46 Note Text: Order placed for repeat trigger point injections for the low back and then separately for the mid back and neck. Patient gets significant relief from these, greater than 50% for many weeks at a time. Helps her to perform exercises and activities of daily living. Local anesthetic only. Low back muscle groups will be lumbar paraspinous, gluteus wayne. Upper back and neck will include cervical paraspinous, thoracic paraspinous and trapezius muscles. This treatment has been a mainstay of this patient's care. [facility] 05-19-2024 History of Presen t illness Narrative Order placed for repeat trigger point injections for the low back and then separately for the mid back and neck. Patient gets significant relief from these, greater than 50% for many weeks at a time. Helps her to perform exercises and activities of daily living. Local anesthetic only. Low back muscle groups will be lumbar paraspinous, gluteus wayne. Upper back and neck will include cervical paraspinous, thoracic paraspinous and trapezius muscles. This treatment has been a mainstay of this patient's care. documented in this encounter [facility] 05-19-2024 Surgery Surgical operation note Summary: TPI PATIENT: Capri Lynch Lauren SURGEON: Primary: Vini Mcdonald MD : 1975 DATE OF SURGERY: May 19, 2024 PRE-OP Diagnosis: Myofascial pain syndrome [M79.18] POST-OP Diagnosis: Same Procedure: Procedure(s): INJECTION TRIGGER POINT THREE OR MORE MUSCLES(low back) Anesthesia Type: Local The following procedure was performed in the office today: Trigger Point Injection(s): () -Informed consent was obtained and all patient questions were answered. After discussing the risks, benefits, prognosis, and alternatives to the procedure, the patient expressed understanding and wished to proceed. A pre-procedural pause was conducted to verify: correct patient identity, procedure to be performed and as applicable, correct side and site, correct patient position, and any special requirements. -Procedure: The trigger points injections were performed today in the office with aseptic technique. The patient tolerated the procedure well and was discharged after an appropriate period of observation. Trigger points injected (#): 31 Muscle groups: Bilateral thoracic paraspinous, bilateral trapezius, bilateral cervical paraspinous Injectate: total of 15 mL of 0.25% bupivacaine; distributed equally at each site. [facility] Work Phone: 05-19-2024 Surgical operatio n note Summary: TPI PATIENT: Capri Aguilar SURGEON: Primary: Vini Mcdonald MD : 1975 DATE OF SURGERY: May 19, 2024 PRE-OP Diagnosis: Myofascial pain syndrome [M79.18] POST-OP Diagnosis: Same Procedure: Procedure(s): INJECTION TRIGGER POINT THREE OR MORE MUSCLES(low back) Anesthesia Type: Local The following procedure was performed in the office today: Trigger Point Injection(s): () -Informed consent was obtained and all patient questions were answered. After discussing the risks, benefits, prognosis, and alternatives to the procedure, the patient expressed understanding and wished to proceed. A pre-procedural pause was conducted to verify: correct patient identity, procedure to be performed and as applicable, correct side and site, correct patient position, and any special requirements. -Procedure: The trigger points injections were performed today in the office with aseptic technique. The patient tolerated the procedure well and was discharged after an appropriate period of observation. Trigger points injected (#): 31 Muscle groups: Bilateral thoracic paraspinous, bilateral trapezius, bilateral cervical paraspinous Injectate: total of 15 mL of 0.25% bupivacaine; distributed equally at each site. documented in this encounter [facility] 05-18-2024 Telephone encounter Note The following approved medication requests have been transmitted electronically. Requested Prescriptions Signed Prescriptions Disp Refills oxyCODONE concentrate (ROXICODONE) 20 mg/mL concentrated solution 150 mL 0 Sig: Take 0.5-1 mL by mouth every 4 hours as needed for pain for up to 25 days. Take 0.5-1mL every 4 hours as needed for pain for up to 25 days Patient should start on May 19, 2024. Authorizing Provider: ERIKA CONWAY PA-C [facility] 05-18-2024 Miscellaneous Notes The following approved medication requests have been transmitted electronically. Requested Prescriptions Signed Prescriptions Disp Refills oxyCODONE concentrate (ROXICODONE) 20 mg/mL concentrated solution 150 mL 0 Sig: Take 0.5-1 mL by mouth every 4 hours as needed for pain for up to 25 days. Take 0.5-1mL every 4 hours as needed for pain for up to 25 days Patient should start on May 19, 2024. Authorizing Provider: ERIKA CONWAY PA-C Patient phones [...] We will not be escalating opioid dosage Opioid agreement signed 08/05/23. Summary Report Date Value Ref Range Status 03/25/2024 FINAL Final Comment: ==== Opiate Class, MS, Ur RFX Oxycodone Class, MS, Ur RFX ToxAssure Flex 23, Ur ==== Test Result Flag Units Drug Present and Declared for Prescription Verification Oxycodone >4566 EXPECTED ng/mg creat Oxymorphone >4566 EXPECTED ng/mg creat Noroxycodone >4566 EXPECTED ng/mg creat Noroxymorphone 3451 EXPECTED ng/mg creat Sources of oxycodone are scheduled prescription medications. Oxymorphone, noroxycodone, and noroxymorphone are expected metabolites of oxycodone. Oxymorphone is also available as a scheduled prescription medication. ==== Test Result Flag Units Ref Range Creatinine 219 mg/dL >=20 ==== Declared Medications: The flagging and interpretation on this report are based on the following declared medications. Unexpected results may arise from inaccuracies in the declared medications. Note: The testing scope of this panel includes these medications: Oxycodone ==== For clinical consultation, please call . ==== No results found for: UQNOTE, OPIATEPNMGT, DRUGSCRPAIN Urine Panel: No results found for: UQCANN, UQBNZL, TYX8PKH, UQAMPH, UQMAMP, UQBUPRE, UQNORBUP, UQMTHD, UQEDDP, UQTRAM, UQDTRM, UQFNTL, UQNFTL, UQCODE, UQMORP, UQDCDN, UQHCOD, UQOXYC, UQHMOR, UQOXYM, UQCREA, UQPH, UQSPGR, UQOXID, UQSPQ @FLOW([id number])@ Lab Results Component Value Date SUMM FINAL 03/25/2024 Summary Report (Summary) Date Value Ref Range Status 01/30/2022 FINAL Final Comment: ==== TOXASSURE COMP DRUG ANALYSIS,UR ==== Test Result Flag Units Drug Present Oxycodone 6739 ng/mg creat Oxymorphone >7299 ng/mg creat Noroxycodone >7299 ng/mg creat Noroxymorphone >7299 ng/mg creat Sources of oxycodone are scheduled prescription medications. Oxymorphone, noroxycodone, and noroxymorphone are expected metabolites of oxycodone. Oxymorphone is also available as a scheduled prescription medication. ==== Test Result Flag Units Ref Range Creatinine 137 mg/dL >=20 ==== Declared Medications: Medication list was not provided. ==== For clinical consultation, please call . ==== Last Opioid agreement effective date: 08/05/2023 Please review and advise. Allie Bass RN documented in this encounter [facility] 05-18-2024 Telephone encounter Note Patient phones requesting refills as follows: Requested [...] We will not be escalating opioid dosage Opioid agreement signed 08/05/23. Summary Report Date Value Ref Range Status 03/25/2024 FINAL Final Comment: ==== Opiate Class, MS, Ur RFX Oxycodone Class, MS, Ur RFX ToxAssure Flex 23, Ur ==== Test Result Flag Units Drug Present and Declared for Prescription Verification Oxycodone >4566 EXPECTED ng/mg creat Oxymorphone >4566 EXPECTED ng/mg creat Noroxycodone >4566 EXPECTED ng/mg creat Noroxymorphone 3451 EXPECTED ng/mg creat Sources of oxycodone are scheduled prescription medications. Oxymorphone, noroxycodone, and noroxymorphone are expected metabolites of oxycodone. Oxymorphone is also available as a scheduled prescription medication. ==== Test Result Flag Units Ref Range Creatinine 219 mg/dL >=20 ==== Declared Medications: The flagging and interpretation on this report are based on the following declared medications. Unexpected results may arise from inaccuracies in the declared medications. Note: The testing scope of this panel includes these medications: Oxycodone ==== For clinical consultation, please call . ==== No results found for: UQNOTE, OPIATEPNMGT, DRUGSCRPAIN Urine Panel: No results found for: UQCANN, UQBNZL, KCG5MSB, UQAMPH, UQMAMP, UQBUPRE, UQNORBUP, UQMTHD, UQEDDP, UQTRAM, UQDTRM, UQFNTL, UQNFTL, UQCODE, UQMORP, UQDCDN, UQHCOD, UQOXYC, UQHMOR, UQOXYM, UQCREA, UQPH, UQSPGR, UQOXID, UQSPQ @FLOW([id number])@ Lab Results Component Value Date SUMM FINAL 03/25/2024 Summary Report (Summary) Date Value Ref Range Status 01/30/2022 FINAL Final Comment: ==== TOXASSURE COMP DRUG ANALYSIS,UR ==== Test Result Flag Units Drug Present Oxycodone 6739 ng/mg creat Oxymorphone >7299 ng/mg creat Noroxycodone >7299 ng/mg creat Noroxymorphone >7299 ng/mg creat Sources of oxycodone are scheduled prescription medications. Oxymorphone, noroxycodone, and noroxymorphone are expected metabolites of oxycodone. Oxymorphone is also available as a scheduled prescription medication. ==== Test Result Flag Units Ref Range Creatinine 137 mg/dL >=20 ==== Declared Medications: Medication list was not provided. ==== For clinical consultation, please call . ==== Last Opioid agreement effective date: 08/05/2023 Please review and advise. Allie Bass RN [facility] 05-12-2024 Surgery Surgical operation note Summary: TPI PATIENT: Capri Aguilar SURGEON: Primary: Vini Mcdonald MD : 1975 DATE OF SURGERY: May 12, 2024 PRE-OP Diagnosis: Myofascial pain syndrome [M79.18] POST-OP Diagnosis: Same Procedure: Procedure(s): INJECTION TRIGGER POINT THREE OR MORE MUSCLES (upper back and neck) Anesthesia Type: Local The following procedure was performed in the office today: Trigger Point Injection(s): (90434) -Informed consent was obtained and all patient questions were answered. After discussing the risks, benefits, prognosis, and alternatives to the procedure, the patient expressed understanding and wished to proceed. A pre-procedural pause was conducted to verify: correct patient identity, procedure to be performed and as applicable, correct side and site, correct patient position, and any special requirements. -Procedure: The trigger points injections were performed today in the office with aseptic technique. The patient tolerated the procedure well and was discharged after an appropriate period of observation. Trigger points injected (#): 27 Muscle groups: Bilateral lumbar paraspinous, bilateral thoracic paraspinous, bilateral gluteus wayne, bilateral gluteus minimus Injectate: total of 10 mL of 0.25% bupivacaine; distributed equally at each site. [facility] Work Phone: 05-12-2024 Surgical operatio n note Summary: TPI PATIENT: Capri Aguilar SURGEON: Primary: Vini Mcdonald MD : 1975 DATE OF SURGERY: May 12, 2024 PRE-OP Diagnosis: Myofascial pain syndrome [M79.18] POST-OP Diagnosis: Same Procedure: Procedure(s): INJECTION TRIGGER POINT THREE OR MORE MUSCLES (upper back and neck) Anesthesia Type: Local The following procedure was performed in the office today: Trigger Point Injection(s): () -Informed consent was obtained and all patient questions were answered. After discussing the risks, benefits, prognosis, and alternatives to the procedure, the patient expressed understanding and wished to proceed. A pre-procedural pause was conducted to verify: correct patient identity, procedure to be performed and as applicable, correct side and site, correct patient position, and any special requirements. -Procedure: The trigger points injections were performed today in the office with aseptic technique. The patient tolerated the procedure well and was discharged after an appropriate period of observation. Trigger points injected (#): 27 Muscle groups: Bilateral lumbar paraspinous, bilateral thoracic paraspinous, bilateral gluteus wayne, bilateral gluteus minimus Injectate: total of 10 mL of 0.25% bupivacaine; distributed equally at each site. documented in this encounter [facility] 04-17-2024 Telephone encounter Note The following approved medication requests have been transmitted electronically. Requested Prescriptions Signed Prescriptions Disp Refills oxyCODONE concentrate (ROXICODONE) 20 mg/mL concentrated solution 150 mL 0 Sig: Take 0.5-1 mL by mouth every 4 hours as needed for pain for up to 25 days. Take 0.5-1mL every 4 hours as needed for pain for up to 25 days Patient should start on April 24, 2024. Authorizing Provider: ERIKA CONWAY PA-C [facility] 04-17-2024 Miscellaneous Notes The following approved medication requests have been transmitted electronically. Requested Prescriptions Signed Prescriptions Disp Refills oxyCODONE concentrate (ROXICODONE) 20 mg/mL concentrated solution 150 mL 0 Sig: Take 0.5-1 mL by mouth every 4 hours as needed for pain for up to 25 days. Take 0.5-1mL every 4 hours as needed for pain for up to 25 days Patient should start on April 24, 2024. Authorizing Provider: ERIAK CONWAY PA-C Patient phones requesting refills as [...] We will not be escalating opioid dosage Opioid agreement signed 08/05/23. Summary Report Date Value Ref Range Status 03/25/2024 FINAL Final Comment: ==== Opiate Class, MS, Ur RFX Oxycodone Class, MS, Ur RFX ToxAssure Flex 23, Ur ==== Test Result Flag Units Drug Present and Declared for Prescription Verification Oxycodone >4566 EXPECTED ng/mg creat Oxymorphone >4566 EXPECTED ng/mg creat Noroxycodone >4566 EXPECTED ng/mg creat Noroxymorphone 3451 EXPECTED ng/mg creat Sources of oxycodone are scheduled prescription medications. Oxymorphone, noroxycodone, and noroxymorphone are expected metabolites of oxycodone. Oxymorphone is also available as a scheduled prescription medication. ==== Test Result Flag Units Ref Range Creatinine 219 mg/dL >=20 ==== Declared Medications: The flagging and interpretation on this report are based on the following declared medications. Unexpected results may arise from inaccuracies in the declared medications. Note: The testing scope of this panel includes these medications: Oxycodone ==== For clinical consultation, please call . ==== No results found for: UQNOTE, OPIATEPNMGT, DRUGSCRPAIN Urine Panel: No results found for: UQCANN, UQBNZL, ASQ7ASB, UQAMPH, UQMAMP, UQBUPRE, UQNORBUP, UQMTHD, UQEDDP, UQTRAM, UQDTRM, UQFNTL, UQNFTL, UQCODE, UQMORP, UQDCDN, UQHCOD, UQOXYC, UQHMOR, UQOXYM, UQCREA, UQPH, UQSPGR, UQOXID, UQSPQ @FLOW([id number])@ Lab Results Component Value Date SUMM FINAL 03/25/2024 Summary Report (Summary) Date Value Ref Range Status 01/30/2022 FINAL Final Comment: ==== TOXASSURE COMP DRUG ANALYSIS,UR ==== Test Result Flag Units Drug Present Oxycodone 6739 ng/mg creat Oxymorphone >7299 ng/mg creat Noroxycodone >7299 ng/mg creat Noroxymorphone >7299 ng/mg creat Sources of oxycodone are scheduled prescription medications. Oxymorphone, noroxycodone, and noroxymorphone are expected metabolites of oxycodone. Oxymorphone is also available as a scheduled prescription medication. ==== Test Result Flag Units Ref Range Creatinine 137 mg/dL >=20 ==== Declared Medications: Medication list was not provided. ==== For clinical consultation, please call . ==== Last Opioid agreement effective date: 08/05/2023 Please review and advise. Zonia Desai RN documented in this encounter [facility] 04-17-2024 Telephone encounter Note Patient phones requesting refills as follows: Requested [...] We will not be escalating opioid dosage Opioid agreement signed 08/05/23. Summary Report Date Value Ref Range Status 03/25/2024 FINAL Final Comment: ==== Opiate Class, MS, Ur RFX Oxycodone Class, MS, Ur RFX ToxAssure Flex 23, Ur ==== Test Result Flag Units Drug Present and Declared for Prescription Verification Oxycodone >4566 EXPECTED ng/mg creat Oxymorphone >4566 EXPECTED ng/mg creat Noroxycodone >4566 EXPECTED ng/mg creat Noroxymorphone 3451 EXPECTED ng/mg creat Sources of oxycodone are scheduled prescription medications. Oxymorphone, noroxycodone, and noroxymorphone are expected metabolites of oxycodone. Oxymorphone is also available as a scheduled prescription medication. ==== Test Result Flag Units Ref Range Creatinine 219 mg/dL >=20 ==== Declared Medications: The flagging and interpretation on this report are based on the following declared medications. Unexpected results may arise from inaccuracies in the declared medications. Note: The testing scope of this panel includes these medications: Oxycodone ==== For clinical consultation, please call . ==== No results found for: UQNOTE, OPIATEPNMGT, DRUGSCRPAIN Urine Panel: No results found for: UQCANN, UQBNZL, JLP1OSK, UQAMPH, UQMAMP, UQBUPRE, UQNORBUP, UQMTHD, UQEDDP, UQTRAM, UQDTRM, UQFNTL, UQNFTL, UQCODE, UQMORP, UQDCDN, UQHCOD, UQOXYC, UQHMOR, UQOXYM, UQCREA, UQPH, UQSPGR, UQOXID, UQSPQ @FLOW([id number])@ Lab Results Component Value Date SUMM FINAL 03/25/2024 Summary Report (Summary) Date Value Ref Range Status 01/30/2022 FINAL Final Comment: ==== TOXASSURE COMP DRUG ANALYSIS,UR ==== Test Result Flag Units Drug Present Oxycodone 6739 ng/mg creat Oxymorphone >7299 ng/mg creat Noroxycodone >7299 ng/mg creat Noroxymorphone >7299 ng/mg creat Sources of oxycodone are scheduled prescription medications. Oxymorphone, noroxycodone, and noroxymorphone are expected metabolites of oxycodone. Oxymorphone is also available as a scheduled prescription medication. ==== Test Result Flag Units Ref Range Creatinine 137 mg/dL >=20 ==== Declared Medications: Medication list was not provided. ==== For clinical consultation, please call . ==== Last Opioid agreement effective date: 08/05/2023 Please review and advise. Zonia Desai RN [facility] 04-02-2024 Surgery Surgical operation note Summary: Botox Injections PATIENT: Capri Lynch Lauren SURGEON: Primary: Vini Mcdonald MD : 1975 DATE OF SURGERY: April 02, 2024 PRE-OP Diagnosis: 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 [G43.711] POST-OP Diagnosis: Same Procedure: Procedure(s): CHEMODENERVATION OF MUSCLE (S), MUSCLE (S) INNERVATED BY FACIAL NERVE Anesthesia Type: Local The following procedure was performed in the office today: Botox Injection PROCEDURE: Botox injection CPT code: 59497 PREPROCEDURE DIAGNOSIS: Migraine headache POSTPROCEDURE DIAGNOSIS: same ANESTHESIA: none PROCEDURE REPORT: The risks and benefits of the procedure were explained to the patient and all questions were answered. The patient gave consent to proceed with the procedure. The skin was prepped with alcohol. BOTOX Lot Number: [id number], [id number] BOTOX was reconstituted to a concentration of 5 U/0.1mL. The following injections were made using a 30G needle: 5 Botox units to the procerus muscle 5 Botox units to the right senior hydrogeologist supercilii muscle 5 Botox units to the left senior hydrogeologist supercilii muscle 20 Botox units to the frontalis muscle 25 Botox units to the right temporalis muscle 25 Botox units to the left temporalis muscle 20 Botox units to the right occipitalis muscle 20 Botox units to the left occipitalis muscle 15 Botox units to the right cervical paraspinals 15 Botox units to the left cervical paraspinals The needle was withdrawn intact. The patient tolerated the procedure well with no complications noted. [facility] Work Phone: 04-02-2024 Surgical operatio n note Summary: Botox Injections PATIENT: Capri Aguilar SURGEON: Primary: Vini Mcdonald MD : 1975 DATE OF SURGERY: April 02, 2024 PRE-OP Diagnosis: 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 [G43.711] POST-OP Diagnosis: Same Procedure: Procedure(s): CHEMODENERVATION OF MUSCLE (S), MUSCLE (S) INNERVATED BY FACIAL NERVE Anesthesia Type: Local The following procedure was performed in the office today: Botox Injection PROCEDURE: Botox injection CPT code: 81177 PREPROCEDURE DIAGNOSIS: Migraine headache POSTPROCEDURE DIAGNOSIS: same ANESTHESIA: none PROCEDURE REPORT: The risks and benefits of the procedure were explained to the patient and all questions were answered. The patient gave consent to proceed with the procedure. The skin was prepped with alcohol. BOTOX Lot Number: [id number], [id number] BOTOX was reconstituted to a concentration of 5 U/0.1mL. The following injections were made using a 30G needle: 5 Botox units to the procerus muscle 5 Botox units to the right senior hydrogeologist supercilii muscle 5 Botox units to the left senior hydrogeologist supercilii muscle 20 Botox units to the frontalis muscle 25 Botox units to the right temporalis muscle 25 Botox units to the left temporalis muscle 20 Botox units to the right occipitalis muscle 20 Botox units to the left occipitalis muscle 15 Botox units to the right cervical paraspinals 15 Botox units to the left cervical paraspinals The needle was withdrawn intact. The patient tolerated the procedure well with no complications noted. documented in this encounter [facility] 03-25-2024 Instructions Erika Conway PA-C - 03/25/2024 2:59 PM EDT The OARRS report has been reviewed and is consistent with the patients medical history and medication intake. The patient will continue with oxycodone. The patient was previously offered Narcan but declined. Patient says that there is absolutely no chance that somebody will overdose at home. She was encouraged to keep herself physically active, stretch out, and exercise. We will work on getting the BOTOX injections approved as they are currently scheduled for 04/02/24 Follow-up in office in 3 months Return for your already scheduled next set of trigger point injections in May Supervising Physician - Dr. Vini Mcdonald MD documented in this encounter [facility] 03-25-2024 Note HNO ID: [id number] Author: ERIKA CONWAY PA-C Service: ? Author Type: Physician Spot Checker Type: Progress Notes Filed: 03/25/2024 15:16 Note Text: This note was created using [employer]. Subjective Capri Aguilar is a 48 year old female. The patient primarily being seen for generalized pain and migraines Patient was last seen on: 12/18/23 At that time, the treatment plan was: see notes Current Meds: oxycodone - afternoon Efficacy: helps Side effects: denies TENS unit: didn't help How often used: Benefit: Physical Therapy: Last UDS: 03/25/24 Last injection: 03/13/24 OARRS reviewed At the present time, the patient reports benefit with her present analgesic therapy. She denies any adverse effects. Since her previous visit, she denies any hospitalizations or ER visits. She states that the two sets of trigger point injections helped relieve 90% of her muscle pain in her neck/upper back and in the mid/lower back. She has been able to be more active. She is currently scheduled for BOTOX injections 04/02/24. Her last set was 11/14/23 and she states that after she gets the injections her migraines are much less severe and she typically only gets ~1 a month. Because it has been so long since her last set of BOTOX injections she states that her migraines are now happening 2-3 times a week and when she has them they are lasting at least 24 hours and severely interfering with her ADLS. She states she is at about 288 hours this month that she has suffered from her migraines. 03/12/2024 03/24/2024 INTAKE PAIN ASSESSMENT Are you having pain associated with your visit today? Yes, Provider notified Pain Level 5 6 Pain Location Back-Lower Generalized Description Aching;Numbness;Pressure;Radiati ng;Sore;Stiffness;Tenderness;Tig htness Duration Amount of Time 12 Duration Units Months Frequency Continuous Intervention/Comfort measure Relaxation;Distractions;Position ing;Other: See comment Pain Assessment Reassessment HPI PAST MEDICAL HISTORY Diagnosis Date Acute gastritis without mention of hemorrhage CHARCOT Wuhtlrt-Cnobf-jvaio disease, deafness, and intellectual disability syndrome Eczema [...] REVISION, ONE TOE 95, 97 Bialteral/ hammertoe AND arches KNEE SURGERY HX MYRINGOTOMY ASPIRAND/EUSTACHIAN TUBE NFLTJ ANES 05/20 Myringotomy/tubes PAST SURGICAL HISTORY OF , , , 01 FOOT, KNEE,ANKLES PAST SURGICAL HISTORY OF 2002 MUSCLE BIOPSY PAST SURGICAL HISTORY OF 1997 CARDIAC SURGERY TONSILLECTOMY AND ADENOIDECTOMY TONSILLECTOMY PRIMARY/SECONDARY Tonsillectomy Social History Tobacco Use Smoking status: Never Smokeless tobacco: Never Substance Use Topics Alcohol use: Yes Drug use: No Review of Systems Constitutional: Negative for fever and unexpected weight change. Musculoskeletal: + neck pain, back pain, numbness, tingling, muscle cramps/weakness, stiffness, arthritis, leg pain at night, and leg pain with exertion. Neurological: Positive for headaches. Objective BP 125/85 (BP Site: Left Arm, BP Position: Sitting, BP Cuff Size: Regular Adult) Pulse 97 Resp 18 Wt 47.2 kg (104 lb) LMP (LMP Unknown) SpO2 100% BMI 16.29 kg/m? Physical Exam Vitals and nursing note reviewed. Constitutional: Appearance: Normal appearance. She is well-developed, well-groomed and normal weight. HENT: Head: Normocephalic and atraumatic. Right Ear: Hearing normal. Left Ear: Hearing normal. Eyes: Conjunctiva/sclera: Conjunctivae normal. Musculoskeletal: Comments: Patient walks with a normal gait. There is tenderness noted in the cervical and lumbar region with spasms noted in the trapezius, rhomboid, paraspinal, and latissimus dorsi muscles. The patient has multiple fibromyalgia tender points noted throughout the examination. Strength is 5/5 throughout. Sensation is intact to light touch throughout. SLR is negative. Neurological: Mental Status: She is alert and oriented to person, place, and time. Psychiatric: Attention and Perception: Attention and perception normal. Mood and Affect: Mood and affect normal. Speech: Speech normal. Behavior: Behavior normal. Behavior is cooperative. Thought Content: Thought content normal. Judgment: Judgment normal. Assessment and Plan ASSESSMENT/PLAN: 1. Fibromyalgia - ICD9: 729.1, ICD10: M79.7 (primary diagnosis) - TOXASSURE? FLEX 23, URINE 2. Chiquis-Danl (more content not included)... [facility] 03-25-2024 History of Presen t illness Narrative This note was created using [employer]. Subjective Capri Aguilar is a 48 year old female. The patient primarily being seen for generalized pain and migraines Patient was last seen on: 12/18/23 At that time, the treatment plan was: see notes Current Meds: oxycodone - afternoon Efficacy: helps Side effects: denies TENS unit: didn't help How often used: Benefit: Physical Therapy: Last UDS: 03/25/24 Last injection: 03/13/24 OARRS reviewed At the present time, the patient reports benefit with her present analgesic therapy. She denies any adverse effects. Since her previous visit, she denies any hospitalizations or ER visits. She states that the two sets of trigger point injections helped relieve 90% of her muscle pain in her neck/upper back and in the mid/lower back. She has been able to be more active. She is currently scheduled for BOTOX injections 04/02/24. Her last set was 11/14/23 and she states that after she gets the injections her migraines are much less severe and she typically only gets ~1 a month. Because it has been so long since her last set of BOTOX injections she states that her migraines are now happening 2-3 times a week and when she has them they are lasting at least 24 hours and severely interfering with her ADLS. She states she is at about 288 hours this month that she has suffered from her migraines. 03/12/2024 03/24/2024 INTAKE PAIN ASSESSMENT Are you having pain associated with your visit today? Yes, Provider notified Pain Level 5 6 Pain Location Back-Lower Generalized Description Aching;Numbness;Pressure;Radiati ng;Sore;Stiffness;Tenderness;Tig htness Duration Amount of Time 12 Duration Units Months Frequency Continuous Intervention/Comfort measure Relaxation;Distractions;Position ing;Other: See comment Pain Assessment Reassessment HPI PAST MEDICAL HISTORY Diagnosis Date Acute gastritis without mention of hemorrhage CHARCOT Olhbugy-Optir-wgmkc disease, deafness, and intellectual disability syndrome Eczema [...] 14 TONSILLECTOMY PRIMARY/SECONDARY <AGE 14 1982 Tonsillectomy Social History Tobacco Use Smoking status: Never Smokeless tobacco: Never Substance Use Topics Alcohol use: Yes Drug use: No Review of Systems Constitutional: Negative for fever and unexpected weight change. Musculoskeletal: + neck pain, back pain, numbness, tingling, muscle cramps/weakness, stiffness, arthritis, leg pain at night, and leg pain with exertion. Neurological: Positive for headaches. Objective BP 125/85 (BP Site: Left Arm, BP Position: Sitting, BP Cuff Size: Regular Adult) Pulse 97 Resp 18 Wt 47.2 kg (104 lb) LMP (LMP Unknown) SpO2 100% BMI 16.29 kg/m Physical Exam Vitals and nursing note reviewed. Constitutional: Appearance: Normal appearance. She is well-developed, well-groomed and normal weight. HENT: Head: Normocephalic and atraumatic. Right Ear: Hearing normal. Left Ear: Hearing normal. Eyes: Conjunctiva/sclera: Conjunctivae normal. Musculoskeletal: Comments: Patient walks with a normal gait. There is tenderness noted in the cervical and lumbar region with spasms noted in the trapezius, rhomboid, paraspinal, and latissimus dorsi muscles. The patient has multiple fibromyalgia tender points noted throughout the examination. Strength is 5/5 throughout. Sensation is intact to light touch throughout. SLR is negative. Neurological: Mental Status: She is alert and oriented to person, place, and time. Psychiatric: Attention and Perception: Attention and perception normal. Mood and Affect: Mood and affect normal. Speech: Speech normal. Behavior: Behavior normal. Behavior is cooperative. Thought Content: Thought content normal. Judgment: Judgment normal. Assessment and Plan ASSESSMENT/PLAN: 1. 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 - ICD9: V58.69, ICD10: Z79.891 - TOXASSURE FLEX 23, URINE 5. 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 - ICD9: 346.73, ICD10: G43.711 PLAN: The [facility] report has been reviewed and is consistent with the patients medical history and medication intake. The patient will continue with oxycodone. The patient was previously offered Narcan but declined. Patient says that there is absolutely no chance that somebody will overdose at home. She was encouraged to keep herself physically active, stretch out, and exercise. We will work on getting the BOTOX injections approved as they are currently scheduled for 04/02/24 Follow-up in office in 3 months Return for your already scheduled next set of trigger point injections in May Erika Conway PA-C documented in this encounter [facility] 03-25-2024 Nurse Note Oxycodone 1pm Med helps pain Denies side effects Last uds-03/25/24 03/13/24-TPI [facility] 03-25-2024 Nurse Note Oxycodone 1pm Med helps pain Denies side effects Last uds-03/25/24 03/13/24-TPI documented in this encounter [facility] 03-16-2024 Telephone encounter Note Order created for TPI visits x2 [facility] 03-16-2024 Miscellaneous Notes Order created for TPI visits x2 Dr Mcdonald, Nayan spoke to Capri and scheduled her Botox. She wanted to schedule her TPI's in May. Please build the cases so she can be added to your schedule. Thanks, Ana King March 13, 2024 11:00 AM Summary: TPI DATE OF SURGERY: March 10, 2024 PRE-OP Diagnosis: Myofascial pain syndrome [M79.18] INJECTION TRIGGER POINT THREE OR MORE MUSCLES (neck/upper back) May 14 at 3:30. DATE OF SURGERY: March 12, 2024 INJECTION TRIGGER POINT THREE OR MORE MUSCLES (mid/lower back x 1 visit) May 19 at 3:30 documented in this encounter [facility] 03-13-[address] Harry I spoke to Capri and scheduled her Botox. She wanted to schedule her TPI's in May. Please build the cases so she can be added to your schedule. ThanksAna March 13, 2024 11:00 AM Summary: TPI DATE OF SURGERY: March 10, 2024 PRE-OP Diagnosis: Myofascial pain syndrome [M79.18] INJECTION TRIGGER POINT THREE OR MORE MUSCLES (neck/upper back) May 14 at 3:30. DATE OF SURGERY: March 12, 2024 INJECTION TRIGGER POINT THREE OR MORE MUSCLES (mid/lower back x 1 visit) May 19 at 3:30 T [facility] 03-12-2024 Surgery Surgical operation note Summary: TPI low back PATIENT: Capri Lynch Aguilar SURGEON: Primary: Vini Mcdonald MD : 1975 DATE OF SURGERY: March 12, 2024 PRE-OP Diagnosis: Myofascial pain syndrome [M79.18] POST-OP Diagnosis: Same Procedure: Procedure(s): INJECTION TRIGGER POINT THREE OR MORE MUSCLES (mid/lower back x 1 visit) Anesthesia Type: Local The following procedure was performed in the office today: Trigger Point Injection(s): () -Informed consent was obtained and all patient questions were answered. After discussing the risks, benefits, prognosis, and alternatives to the procedure, the patient expressed understanding and wished to proceed. A pre-procedural pause was conducted to verify: correct patient identity, procedure to be performed and as applicable, correct side and site, correct patient position, and any special requirements. -Procedure: The trigger points injections were performed today in the office with aseptic technique. The patient tolerated the procedure well and was discharged after an appropriate period of observation. Trigger points injected (#): 21 Muscle groups: Bilateral thoracic paraspinous, bilateral lumbar paraspinous, bilateral gluteus wayne Injectate: total of 10.5 mL of 0.25% bupivacaine; distributed equally at each site. [facility] Work Phone: 03-12-2024 Surgical operatio n note Summary: TPI low back PATIENT: Capri Lynch Aguilar SURGEON: Primary: Vini Mcdonald MD : 1975 DATE OF SURGERY: March 12, 2024 PRE-OP Diagnosis: Myofascial pain syndrome [M79.18] POST-OP Diagnosis: Same Procedure: Procedure(s): INJECTION TRIGGER POINT THREE OR MORE MUSCLES (mid/lower back x 1 visit) Anesthesia Type: Local The following procedure was performed in the office today: Trigger Point Injection(s): () -Informed consent was obtained and all patient questions were answered. After discussing the risks, benefits, prognosis, and alternatives to the procedure, the patient expressed understanding and wished to proceed. A pre-procedural pause was conducted to verify: correct patient identity, procedure to be performed and as applicable, correct side and site, correct patient position, and any special requirements. -Procedure: The trigger points injections were performed today in the office with aseptic technique. The patient tolerated the procedure well and was discharged after an appropriate period of observation. Trigger points injected (#): 21 Muscle groups: Bilateral thoracic paraspinous, bilateral lumbar paraspinous, bilateral gluteus wayne Injectate: total of 10.5 mL of 0.25% bupivacaine; distributed equally at each site. documented in this encounter [facility] 03-10-2024 Surgery Surgical operation note Summary: TPI PATIENT: Capri Aguilar SURGEON: Primary: Vini Mcdonald MD : 1975 DATE OF SURGERY: March 10, 2024 PRE-OP Diagnosis: Myofascial pain syndrome [M79.18] POST-OP Diagnosis: Same Procedure: Procedure(s): INJECTION TRIGGER POINT THREE OR MORE MUSCLES (neck/upper back) Anesthesia Type: Local The following procedure was performed in the office today: Trigger Point Injection(s): () -Informed consent was obtained and all patient questions were answered. After discussing the risks, benefits, prognosis, and alternatives to the procedure, the patient expressed understanding and wished to proceed. A pre-procedural pause was conducted to verify: correct patient identity, procedure to be performed and as applicable, correct side and site, correct patient position, and any special requirements. -Procedure: The trigger points injections were performed today in the office with aseptic technique. The patient tolerated the procedure well and was discharged after an appropriate period of observation. Trigger points injected (#): 28 Muscle groups: Bilateral splenis capitis, bilateral cervical paraspinous, bilateral trapezius, bilateral thoracic paraspinous Injectate: total of 20 mL of 0.25% bupivacaine; distributed equally at each site. [facility] Work Phone: 03-10-2024 Surgical operatio n note Summary: TPI PATIENT: Capri Aguilar SURGEON: Primary: Vini Mcdonald MD : 1975 DATE OF SURGERY: March 10, 2024 PRE-OP Diagnosis: Myofascial pain syndrome [M79.18] POST-OP Diagnosis: Same Procedure: Procedure(s): INJECTION TRIGGER POINT THREE OR MORE MUSCLES (neck/upper back) Anesthesia Type: Local The following procedure was performed in the office today: Trigger Point Injection(s): () -Informed consent was obtained and all patient questions were answered. After discussing the risks, benefits, prognosis, and alternatives to the procedure, the patient expressed understanding and wished to proceed. A pre-procedural pause was conducted to verify: correct patient identity, procedure to be performed and as applicable, correct side and site, correct patient position, and any special requirements. -Procedure: The trigger points injections were performed today in the office with aseptic technique. The patient tolerated the procedure well and was discharged after an appropriate period of observation. Trigger points injected (#): 28 Muscle groups: Bilateral splenis capitis, bilateral cervical paraspinous, bilateral trapezius, bilateral thoracic paraspinous Injectate: total of 20 mL of 0.25% bupivacaine; distributed equally at each site. documented in this encounter [facility] 02-24-2024 Telephone encounter Note I spoke to Capri and informed her the Botox injection was cancelled as her insurance will not cover it. I informed her that I was next available to schedule it on March [address] Mcdonald will do the Botox and the TPI's the same day. She asked if her insurance would cover it. I explained that the TPI's doesn't require a prior authorization. She stated that this is unacceptable and that no one in [facility] must have migraines. I apologized again. Ana King February 24, 2024 10:56 AM [facility] 02-24-2024 Miscellaneous Notes I spoke to Capri and informed her the Botox injection was cancelled as her insurance will not cover it. I informed her that I was next available to schedule it on March [address] Mcdonald will do the Botox and the TPI's the same day. She asked if her insurance would cover it. I explained that the TPI's doesn't require a prior authorization. She stated that this is unacceptable and that no one in [facility] must have migraines. I apologized again. Ana King February 24, 2024 10:56 AM documented in this encounter [facility] 02-21-2024 Miscellaneous Notes The following approved medication requests [...] We will not be escalating opioid dosage Opioid agreement signed 08/05/23. Summary Report Date Value Ref Range Status 08/05/2023 FINAL Final Comment: ==== Opiate Class, MS, Ur RFX Oxycodone Class, MS, Ur RFX ToxAssure Flex 23, Ur ==== Test Result Flag Units Drug Present and Declared for Prescription Verification Oxycodone >4505 EXPECTED ng/mg creat Oxymorphone >4505 EXPECTED ng/mg creat Noroxycodone >4505 EXPECTED ng/mg creat Noroxymorphone >4505 EXPECTED ng/mg creat Sources of oxycodone are scheduled prescription medications. Oxymorphone, noroxycodone, and noroxymorphone are expected metabolites of oxycodone. Oxymorphone is also available as a scheduled prescription medication. ==== Test Result Flag Units Ref Range Creatinine 222 mg/dL >=20 ==== Declared Medications: The flagging and interpretation on this report are based on the following declared medications. Unexpected results may arise from inaccuracies in the declared medications. Note: The testing scope of this panel includes these medications: Oxycodone ==== For clinical consultation, please call . ==== No results found for: UQNOTE, OPIATEPNMGT, DRUGSCRPAIN Urine Panel: No results found for: UQCANN, UQBNZL, EXI1KAL, UQAMPH, UQMAMP, UQBUPRE, UQNORBUP, UQMTHD, UQEDDP, UQTRAM, UQDTRM, UQFNTL, UQNFTL, UQCODE, UQMORP, UQDCDN, UQHCOD, UQOXYC, UQHMOR, UQOXYM, UQCREA, UQPH, UQSPGR, UQOXID, UQSPQ @FLOW([id number])@ Lab Results Component Value Date SUMM FINAL 08/05/2023 Summary Report (Summary) Date Value Ref Range Status 01/30/2022 FINAL Final Comment: ==== TOXASSURE COMP DRUG ANALYSIS,UR ==== Test Result Flag Units Drug Present Oxycodone 6739 ng/mg creat Oxymorphone >7299 ng/mg creat Noroxycodone >7299 ng/mg creat Noroxymorphone >7299 ng/mg creat Sources of oxycodone are scheduled prescription medications. Oxymorphone, noroxycodone, and noroxymorphone are expected metabolites of oxycodone. Oxymorphone is also available as a scheduled prescription medication. ==== Test Result Flag Units Ref Range Creatinine 137 mg/dL >=20 ==== Declared Medications: Medication list was not provided. ==== For clinical consultation, please call . ==== Last Opioid agreement effective date: 08/05/2023 Please review and advise. Zonia Desai RN documented in this encounter [facility] 02-21-2024 Telephone encounter Note The following approved medication requests have been transmitted electronically. Requested Prescriptions Signed Prescriptions Disp Refills oxyCODONE concentrate (ROXICODONE) 20 mg/mL concentrated solution 150 mL 0 Sig: Take 0.5-1 mL by mouth every 4 hours as needed for pain for up to 25 days. Take 0.5-1mL every 4 hours as needed for pain for up to 25 days Authorizing Provider: ERIKA CONWAY PA-C [facility] 02-21-2024 Telephone encounter Note Patient phones requesting refills as follows: Requested [...] We will not be escalating opioid dosage Opioid agreement signed 08/05/23. Summary Report Date Value Ref Range Status 08/05/2023 FINAL Final Comment: ==== Opiate Class, MS, Ur RFX Oxycodone Class, MS, Ur RFX ToxAssure Flex 23, Ur ==== Test Result Flag Units Drug Present and Declared for Prescription Verification Oxycodone >4505 EXPECTED ng/mg creat Oxymorphone >4505 EXPECTED ng/mg creat Noroxycodone >4505 EXPECTED ng/mg creat Noroxymorphone >4505 EXPECTED ng/mg creat Sources of oxycodone are scheduled prescription medications. Oxymorphone, noroxycodone, and noroxymorphone are expected metabolites of oxycodone. Oxymorphone is also available as a scheduled prescription medication. ==== Test Result Flag Units Ref Range Creatinine 222 mg/dL >=20 ==== Declared Medications: The flagging and interpretation on this report are based on the following declared medications. Unexpected results may arise from inaccuracies in the declared medications. Note: The testing scope of this panel includes these medications: Oxycodone ==== For clinical consultation, please call . ==== No results found for: UQNOTE, OPIATEPNMGT, DRUGSCRPAIN Urine Panel: No results found for: UQCANN, UQBNZL, [id number], UQAMPH, UQMAMP, UQBUPRE, UQNORBUP, UQMTHD, UQEDDP, UQTRAM, UQDTRM, UQFNTL, UQNFTL, UQCODE, UQMORP, UQDCDN, UQHCOD, UQOXYC, UQHMOR, UQOXYM, UQCREA, UQPH, UQSPGR, UQOXID, UQSPQ @FLOW([id number])@ Lab Results Component Value Date SUMM FINAL 08/05/2023 Summary Report (Summary) Date Value Ref Range Status 01/30/2022 FINAL Final Comment: ==== TOXASSURE COMP DRUG ANALYSIS,UR ==== Test Result Flag Units Drug Present Oxycodone 6739 ng/mg creat Oxymorphone >7299 ng/mg creat Noroxycodone >7299 ng/mg creat Noroxymorphone >7299 ng/mg creat Sources of oxycodone are scheduled prescription medications. Oxymorphone, noroxycodone, and noroxymorphone are expected metabolites of oxycodone. Oxymorphone is also available as a scheduled prescription medication. ==== Test Result Flag Units Ref Range Creatinine 137 mg/dL >=20 ==== Declared Medications: Medication list was not provided. ==== For clinical consultation, please call . ==== Last Opioid agreement effective date: 08/05/2023 Please review and advise. Zonia Desai RN [facility] 02-11-2024 Telephone encounter Note LM on VM for pt to reschedule botox injections on 02/24- we have 1,130,2 or 230 available. Zonia Desai RN February 11, 2024 3:20 PM [facility] 02-11-2024 Miscellaneous Notes LM on VM for pt to reschedule botox injections on 02/24- we have 1,130,2 or 230 available. Zonia Desai RN February 11, 2024 3:20 PM documented in this encounter [facility] 01-17-2024 Telephone encounter Note Patient phones requesting refills as follows: Requested [...] We will not be escalating opioid dosage Opioid agreement signed 08/05/23. Summary Report Date Value Ref Range Status 08/05/2023 FINAL Final Comment: ==== Opiate Class, MS, Ur RFX Oxycodone Class, MS, Ur RFX ToxAssure Flex 23, Ur ==== Test Result Flag Units Drug Present and Declared for Prescription Verification Oxycodone >4505 EXPECTED ng/mg creat Oxymorphone >4505 EXPECTED ng/mg creat Noroxycodone >4505 EXPECTED ng/mg creat Noroxymorphone >4505 EXPECTED ng/mg creat Sources of oxycodone are scheduled prescription medications. Oxymorphone, noroxycodone, and noroxymorphone are expected metabolites of oxycodone. Oxymorphone is also available as a scheduled prescription medication. ==== Test Result Flag Units Ref Range Creatinine 222 mg/dL >=20 ==== Declared Medications: The flagging and interpretation on this report are based on the following declared medications. Unexpected results may arise from inaccuracies in the declared medications. Note: The testing scope of this panel includes these medications: Oxycodone ==== For clinical consultation, please call . ==== No results found for: UQNOTE, OPIATEPNMGT, DRUGSCRPAIN Urine Panel: No results found for: UQCANN, UQBNZL, ZSH1KIO, UQAMPH, UQMAMP, UQBUPRE, UQNORBUP, UQMTHD, UQEDDP, UQTRAM, UQDTRM, UQFNTL, UQNFTL, UQCODE, UQMORP, UQDCDN, UQHCOD, UQOXYC, UQHMOR, UQOXYM, UQCREA, UQPH, UQSPGR, UQOXID, UQSPQ @FLOW([id number])@ Lab Results Component Value Date SUMM FINAL 08/05/2023 Summary Report (Summary) Date Value Ref Range Status 01/30/2022 FINAL Final Comment: ==== TOXASSURE COMP DRUG ANALYSIS,UR ==== Test Result Flag Units Drug Present Oxycodone 6739 ng/mg creat Oxymorphone >7299 ng/mg creat Noroxycodone >7299 ng/mg creat Noroxymorphone >7299 ng/mg creat Sources of oxycodone are scheduled prescription medications. Oxymorphone, noroxycodone, and noroxymorphone are expected metabolites of oxycodone. Oxymorphone is also available as a scheduled prescription medication. ==== Test Result Flag Units Ref Range Creatinine 137 mg/dL >=20 ==== Declared Medications: Medication list was not provided. ==== For clinical consultation, please call . ==== Last Opioid agreement effective date: 08/05/2023 Please review and advise. Suzette Alcala RN [facility] 01-17-2024 Miscellaneous Notes Patient phones requesting refills as follows: Requested [...] We will not be escalating opioid dosage Opioid agreement signed 08/05/23. Summary Report Date Value Ref Range Status 08/05/2023 FINAL Final Comment: ==== Opiate Class, MS, Ur RFX Oxycodone Class, MS, Ur RFX ToxAssure Flex 23, Ur ==== Test Result Flag Units Drug Present and Declared for Prescription Verification Oxycodone >4505 EXPECTED ng/mg creat Oxymorphone >4505 EXPECTED ng/mg creat Noroxycodone >4505 EXPECTED ng/mg creat Noroxymorphone >4505 EXPECTED ng/mg creat Sources of oxycodone are scheduled prescription medications. Oxymorphone, noroxycodone, and noroxymorphone are expected metabolites of oxycodone. Oxymorphone is also available as a scheduled prescription medication. ==== Test Result Flag Units Ref Range Creatinine 222 mg/dL >=20 ==== Declared Medications: The flagging and interpretation on this report are based on the following declared medications. Unexpected results may arise from inaccuracies in the declared medications. Note: The testing scope of this panel includes these medications: Oxycodone ==== For clinical consultation, please call . ==== No results found for: UQNOTE, OPIATEPNMGT, DRUGSCRPAIN Urine Panel: No results found for: UQCANN, UQBNZL, TXF5VCP, UQAMPH, UQMAMP, UQBUPRE, UQNORBUP, UQMTHD, UQEDDP, UQTRAM, UQDTRM, UQFNTL, UQNFTL, UQCODE, UQMORP, UQDCDN, UQHCOD, UQOXYC, UQHMOR, UQOXYM, UQCREA, UQPH, UQSPGR, UQOXID, UQSPQ @FLOW([id number])@ Lab Results Component Value Date SUMM FINAL 08/05/2023 Summary Report (Summary) Date Value Ref Range Status 01/30/2022 FINAL Final Comment: ==== TOXASSURE COMP DRUG ANALYSIS,UR ==== Test Result Flag Units Drug Present Oxycodone 6739 ng/mg creat Oxymorphone >7299 ng/mg creat Noroxycodone >7299 ng/mg creat Noroxymorphone >7299 ng/mg creat Sources of oxycodone are scheduled prescription medications. Oxymorphone, noroxycodone, and noroxymorphone are expected metabolites of oxycodone. Oxymorphone is also available as a scheduled prescription medication. ==== Test Result Flag Units Ref Range Creatinine 137 mg/dL >=20 ==== Declared Medications: Medication list was not provided. ==== For clinical consultation, please call . ==== Last Opioid agreement effective date: 08/05/2023 Please review and advise. Suzette Alcala RN documented in this encounter [facility] 01-14-2024 Surgery Surgical operation note PATIENT: Capri Aguilar SURGEON: Primary: Vini Mcdonald MD : 1975 DATE OF SURGERY: January 14, 2024 PRE-OP Diagnosis: Fibromyalgia [M79.7] POST-OP Diagnosis: Same Procedure: Procedure(s): bilateral sternocleidomastoid, splenius capitis, trapezius, and levator scapulae muscles INJECTION TRIGGER POINT THREE OR MORE MUSCLES Anesthesia Type: Local The following procedure was performed in the office today: Trigger Point Injection(s): (95307) -Informed consent was obtained and all patient questions were answered. After discussing the risks, benefits, prognosis, and alternatives to the procedure, the patient expressed understanding and wished to proceed. A pre-procedural pause was conducted to verify: correct patient identity, procedure to be performed and as applicable, correct side and site, correct patient position, and any special requirements. -Procedure: The trigger points injections were performed today in the office with aseptic technique. The patient tolerated the procedure well and was discharged after an appropriate period of observation. Trigger points injected (#): 20 Muscle groups: bilateral lumbar Paraspinous, thoracic Paraspinous, gluteus medius Injectate: total of 10 mL of 0.25% bupivacaine; distributed equally at each site. [facility] Work Phone: 01-14-2024 Surgical operatio n note PATIENT: Capri Aguilar SURGEON: Primary: Vini Mcdonald MD : 1975 DATE OF SURGERY: January 14, 2024 PRE-OP Diagnosis: Fibromyalgia [M79.7] POST-OP Diagnosis: Same Procedure: Procedure(s): bilateral sternocleidomastoid, splenius capitis, trapezius, and levator scapulae muscles INJECTION TRIGGER POINT THREE OR MORE MUSCLES Anesthesia Type: Local The following procedure was performed in the office today: Trigger Point Injection(s): () -Informed consent was obtained and all patient questions were answered. After discussing the risks, benefits, prognosis, and alternatives to the procedure, the patient expressed understanding and wished to proceed. A pre-procedural pause was conducted to verify: correct patient identity, procedure to be performed and as applicable, correct side and site, correct patient position, and any special requirements. -Procedure: The trigger points injections were performed today in the office with aseptic technique. The patient tolerated the procedure well and was discharged after an appropriate period of observation. Trigger points injected (#): 20 Muscle groups: bilateral lumbar Paraspinous, thoracic Paraspinous, gluteus medius Injectate: total of 10 mL of 0.25% bupivacaine; distributed equally at each site. documented in this encounter [facility] 01-09-2024 Surgery Surgical operation note PATIENT: Capri Lynch Aguilar SURGEON: Primary: Vini Mcdonald MD : 1975 DATE OF SURGERY: January 09, 2024 PRE-OP Diagnosis: Fibromyalgia [M79.7] POST-OP Diagnosis: Same Procedure: Procedure(s): bilateral quadratus lumborum, latissimus dorsi, erector spinae, and rhomboid muscles INJECTION TRIGGER POINT THREE OR MORE MUSCLES Anesthesia Type: Local The following procedure was performed in the office today: Trigger Point Injection(s): (00573) -Informed consent was obtained and all patient questions were answered. After discussing the risks, benefits, prognosis, and alternatives to the procedure, the patient expressed understanding and wished to proceed. A pre-procedural pause was conducted to verify: correct patient identity, procedure to be performed and as applicable, correct side and site, correct patient position, and any special requirements. -Procedure: The trigger points injections were performed today in the office with aseptic technique. The patient tolerated the procedure well and was discharged after an appropriate period of observation. Trigger points injected (#): 16 Muscle groups: Bilateral spinous capitis, cervical paraspinous, rhomboids, thoracic paraspinous, left infraspinatus, bilateral trapezius Injectate: total of 10 mL of 0.25% bupivacaine; distributed equally at each site. [facility] Work Phone: 01-09-2024 Surgical operatio n note PATIENT: Capri Aguilar SURGEON: Primary: Vini Mcdonald MD : 1975 DATE OF SURGERY: January 09, 2024 PRE-OP Diagnosis: Fibromyalgia [M79.7] POST-OP Diagnosis: Same Procedure: Procedure(s): bilateral quadratus lumborum, latissimus dorsi, erector spinae, and rhomboid muscles INJECTION TRIGGER POINT THREE OR MORE MUSCLES Anesthesia Type: Local The following procedure was performed in the office today: Trigger Point Injection(s): (30607) -Informed consent was obtained and all patient questions were answered. After discussing the risks, benefits, prognosis, and alternatives to the procedure, the patient expressed understanding and wished to proceed. A pre-procedural pause was conducted to verify: correct patient identity, procedure to be performed and as applicable, correct side and site, correct patient position, and any special requirements. -Procedure: The trigger points injections were performed today in the office with aseptic technique. The patient tolerated the procedure well and was discharged after an appropriate period of observation. Trigger points injected (#): 16 Muscle groups: Bilateral spinous capitis, cervical paraspinous, rhomboids, thoracic paraspinous, left infraspinatus, bilateral trapezius Injectate: total of 10 mL of 0.25% bupivacaine; distributed equally at each site. documented in this encounter [facility] 12-18-2023 History of Presen t illness Narrative PATIENT: Capri Aguilar : 1975 DATE OF SERVICE: 12/18/2023 REFERRING PRACTITIONER: No ref. provider found PRIMARY CARE PROVIDER: Luisa Pemberton MD CHIEF COMPLAINT: Patient presents with: Pain HISTORY OF PRESENT ILLNESS: Capri Aguilar is a 48 year old year old female who presents to the clinic today with chief complaint(s) as above. Following up for: Diffuse chronic pain Response to treatment recommendations: Improvement with medication including liquid oxycodone, trigger point injections and Botox injections Current primary concern/description: Continued whole body pain Pain Level: 5 /10 Better with: Medication, rest, trigger point injections, Botox medication, rest, trigger point injections, Botox Worse with: Activity Numbness/Tingling: [] Yes [x] No Bladder/bowel fxn change: [] Yes [x] No --- 14 point ROS as above; pertinent positives listed above, the rest are reviewed and confirmed to be negative. Nursing ROS Reviewed and confirmed. === HISTORY: ALLERGIES Allergen Reactions Cephalexin Unknown Adhesive Hives Fragrances Rash, Hives Morphine Hives Perfumes Unknown Adhesive PAST MEDICAL HISTORY Diagnosis Date Acute gastritis without mention of hemorrhage CHARCOT Dtyyqnz-Szacy-lpnvc disease, deafness, and intellectual disability syndrome Eczema [...] Myringotomy/tubes PAST SURGICAL HISTORY OF , 04, , FOOT, KNEE,ANKLES PAST SURGICAL HISTORY OF [...] Topics Alcohol use: Yes Drug use: No Current Outpatient Medications Medication Sig ipratropium bromide [...] daily at bedtime. Take one(1) tablet daily. [START ON 12/20/2023] oxyCODONE concentrate (ROXICODONE) 20 mg/mL concentrated solution Take 0.5-1 mL by mouth every 4 hours as needed for pain for up to 25 days. Take 0.5-1mL every 4 hours as needed for pain for up to 25 days Do not start before December 20, 2023. modafinil (PROVIGIL) 100 mg tablet Take 1 tablet by mouth once daily for 30 days. No current facility-administered medications for this visit. OBJECTIVE: VS: BP 134/70 (BP Site: Left Arm, BP Position: Sitting, BP Cuff Size: Regular Adult) Pulse 67 Resp 18 Wt 47.2 kg (104 lb) LMP (LMP Unknown) SpO2 97% BMI 16.29 kg/m Body mass index is 16.29 kg/m . PHYSICAL EXAMINATION: Gen: Well developed. No acute distress. Eyes: Conjunctivae clear. Normal upper and lower lids. CV: Non-cyanotic. No obvious jugular venous distention. Chest: Non-labored breathing, good respiratory effort. Lymph: No visible regional lymphadenopathy. No gross edema noted. Skin: Visualized portions intact and no rashes or ecchymosis noted. Psych: Alert and well-oriented. Mood/Affect: appropriate. Neuro/MSK: Tender to palpation throughout the musculature of the lumbar thoracic and cervical spine. 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 Continue liquid oxycodone for chronic abdominal pain, whole body pain 2. Continue with trigger point injections 3. Will schedule Botox for February 11. Continue activity as tolerated 5. Follow-up 3 months 6. Continue care with all other providers The risks, benefits, alternative treatment options and prognosis were discussed and all of patient's questions/concerns were addressed. -Depending on response to recommendations, in the future may consider evaluation for: Follow-up: 3 months May certainly follow up sooner if needed. This note was produced using voice recognition software and therefore may contain typos. Please contact the author with any questions or concerns. Author: Vini Mcdonald MD 12/18/2023 3:04 PM documented in this encounter [facility] 12-18-2023 Instructions Vini Mcdonald MD - 12/18/2023 3:04 PM EDT 1. Continue liquid oxycodone for chronic abdominal pain, whole body pain 2. Continue with trigger point injections 3. Will schedule Botox for February 11. Continue activity as tolerated 5. Follow-up 3 months 6. Continue care with all other providers documented in this encounter [facility] 12-18-2023 Nurse Note Oxycodone Med helps pain Denies side effects Last uds-08/05/23 6-Botox [facility] 12-18-2023 Nurse Note Oxycodone Med helps pain Denies side effects Last uds-08/05/23 6-Botox documented in this encounter [facility] 11-25-2023 Telephone encounter Note The following approved medication requests have been transmitted electronically. Requested Prescriptions Signed Prescriptions Disp Refills oxyCODONE concentrate (ROXICODONE) 20 mg/mL concentrated solution 150 mL 0 Sig: Take 0.5-1 mL by mouth every 4 hours as needed for pain for up to 25 days. Take 0.5-1mL every 4 hours as needed for pain for up to 25 days Authorizing Provider: ERIKA CONWAY PA-C [facility] 11-25-2023 Miscellaneous Notes The following approved medication requests [...] We will not be escalating opioid dosage Opioid agreement signed 08/05/23. Summary Report Date Value Ref Range Status 08/05/2023 FINAL Final Comment: ==== Opiate Class, MS, Ur RFX Oxycodone Class, MS, Ur RFX ToxAssure Flex 23, Ur ==== Test Result Flag Units Drug Present and Declared for Prescription Verification Oxycodone >4505 EXPECTED ng/mg creat Oxymorphone >4505 EXPECTED ng/mg creat Noroxycodone >4505 EXPECTED ng/mg creat Noroxymorphone >4505 EXPECTED ng/mg creat Sources of oxycodone are scheduled prescription medications. Oxymorphone, noroxycodone, and noroxymorphone are expected metabolites of oxycodone. Oxymorphone is also available as a scheduled prescription medication. ==== Test Result Flag Units Ref Range Creatinine 222 mg/dL >=20 ==== Declared Medications: The flagging and interpretation on this report are based on the following declared medications. Unexpected results may arise from inaccuracies in the declared medications. Note: The testing scope of this panel includes these medications: Oxycodone ==== For clinical consultation, please call . ==== No results found for: UQNOTE, OPIATEPNMGT, DRUGSCRPAIN Urine Panel: No results found for: UQCANN, UQBNZL, HKV6IQJ, UQAMPH, UQMAMP, UQBUPRE, UQNORBUP, UQMTHD, UQEDDP, UQTRAM, UQDTRM, UQFNTL, UQNFTL, UQCODE, UQMORP, UQDCDN, UQHCOD, UQOXYC, UQHMOR, UQOXYM, UQCREA, UQPH, UQSPGR, UQOXID, UQSPQ @FLOW([id number])@ Lab Results Component Value Date SUMM FINAL 08/05/2023 Summary Report (Summary) Date Value Ref Range Status 01/30/2022 FINAL Final Comment: ==== TOXASSURE COMP DRUG ANALYSIS,UR ==== Test Result Flag Units Drug Present Oxycodone 6739 ng/mg creat Oxymorphone >7299 ng/mg creat Noroxycodone >7299 ng/mg creat Noroxymorphone >7299 ng/mg creat Sources of oxycodone are scheduled prescription medications. Oxymorphone, noroxycodone, and noroxymorphone are expected metabolites of oxycodone. Oxymorphone is also available as a scheduled prescription medication. ==== Test Result Flag Units Ref Range Creatinine 137 mg/dL >=20 ==== Declared Medications: Medication list was not provided. ==== For clinical consultation, please call . ==== Last Opioid agreement effective date: 08/05/2023 Please review and advise. Allie Bass RN documented in this encounter [facility] 11-25-2023 Telephone encounter Note Patient phones requesting refills as follows: Requested [...] We will not be escalating opioid dosage Opioid agreement signed 08/05/23. Summary Report Date Value Ref Range Status 08/05/2023 FINAL Final Comment: ==== Opiate Class, MS, Ur RFX Oxycodone Class, MS, Ur RFX ToxAssure Flex 23, Ur ==== Test Result Flag Units Drug Present and Declared for Prescription Verification Oxycodone >4505 EXPECTED ng/mg creat Oxymorphone >4505 EXPECTED ng/mg creat Noroxycodone >4505 EXPECTED ng/mg creat Noroxymorphone >4505 EXPECTED ng/mg creat Sources of oxycodone are scheduled prescription medications. Oxymorphone, noroxycodone, and noroxymorphone are expected metabolites of oxycodone. Oxymorphone is also available as a scheduled prescription medication. ==== Test Result Flag Units Ref Range Creatinine 222 mg/dL >=20 ==== Declared Medications: The flagging and interpretation on this report are based on the following declared medications. Unexpected results may arise from inaccuracies in the declared medications. Note: The testing scope of this panel includes these medications: Oxycodone ==== For clinical consultation, please call . ==== No results found for: UQNOTE, OPIATEPNMGT, DRUGSCRPAIN Urine Panel: No results found for: UQCANN, UQBNZL, ECR7YSB, UQAMPH, UQMAMP, UQBUPRE, UQNORBUP, UQMTHD, UQEDDP, UQTRAM, UQDTRM, UQFNTL, UQNFTL, UQCODE, UQMORP, UQDCDN, UQHCOD, UQOXYC, UQHMOR, UQOXYM, UQCREA, UQPH, UQSPGR, UQOXID, UQSPQ @FLOW([id number])@ Lab Results Component Value Date SUMM FINAL 08/05/2023 Summary Report (Summary) Date Value Ref Range Status 01/30/2022 FINAL Final Comment: ==== TOXASSURE COMP DRUG ANALYSIS,UR ==== Test Result Flag Units Drug Present Oxycodone 6739 ng/mg creat Oxymorphone >7299 ng/mg creat Noroxycodone >7299 ng/mg creat Noroxymorphone >7299 ng/mg creat Sources of oxycodone are scheduled prescription medications. Oxymorphone, noroxycodone, and noroxymorphone are expected metabolites of oxycodone. Oxymorphone is also available as a scheduled prescription medication. ==== Test Result Flag Units Ref Range Creatinine 137 mg/dL >=20 ==== Declared Medications: Medication list was not provided. ==== For clinical consultation, please call . ==== Last Opioid agreement effective date: 08/05/2023 Please review and advise. Allie Bass RN [facility] 11-14-2023 [facility] Discharg e Dejon Dunham MD - 11/14/2023 1:23 PM EDT Post-procedure instructions: 1. Rest today. 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 Additional Instructions: documented in this encounter [facility] 11-14-2023 Surgery Surgical operation note Summary: Botox injection Botox Injection PROCEDURE: Botox injection CPT code: 46434 PREPROCEDURE DIAGNOSIS: Migraine headache POSTPROCEDURE DIAGNOSIS: same ANESTHESIA: none PROCEDURE REPORT: The risks and benefits of the procedure were explained to the patient and all questions were answered. The patient gave consent to proceed with the procedure. The skin was prepped with alcohol. BOTOX Lot Number: [id number] BOTOX was reconstituted to a concentration of 2.5 U/0.1mL. The following injections were made using a 30G needle: 15 Botox units to the procerus muscle 15 Botox units to the right senior hydrogeologist supercilii muscle 15 Botox units to the left senior hydrogeologist supercilii muscle 30 Botox units to the [...] Andres MD PATIENT NAME: Capri Aguilar DATE: November 14, 2023 TIME: 1:22 PM [facility] 11-14-2023 Surgical operatio n note Summary: Botox injection Botox Injection PROCEDURE: Botox injection CPT code: 68149 PREPROCEDURE DIAGNOSIS: Migraine headache POSTPROCEDURE DIAGNOSIS: same ANESTHESIA: none PROCEDURE REPORT: The risks and benefits of the procedure were explained to the patient and all questions were answered. The patient gave consent to proceed with the procedure. The skin was prepped with alcohol. BOTOX Lot Number: [id number] BOTOX was reconstituted to a concentration of 2.5 U/0.1mL. The following injections were made using a 30G needle: 15 Botox units to the procerus muscle 15 Botox units to the right senior hydrogeologist supercilii muscle 15 Botox units to the left senior hydrogeologist supercilii muscle 30 Botox units to the [...] Andres MD PATIENT NAME: Capri Aguilar DATE: November 14, 2023 TIME: 1:22 PM documented in this encounter [facility] 11-14-2023 Telephone encounter Note Blayne reached [facility] Rep, authorization has date span and updated notes. Pt called @ 11am to keep appt today. [facility] 11-14-2023 Miscellaneous Notes Blayne reached [facility] Rep, authorization has date span and updated notes. Pt called @ 11am to keep appt today. Request sent 11/12 to BLAYNE for date ext.. No response, emailed this am to see if possible for pt to have this done today. Signed. Approval noted through email, but only for DOS 11/12/23. Needs new order to be R/S and for DOS extension. Received letter for botox denial from Medicare due to lack of information. Was seen in office yesterday, new information documented. Denial letter and notes sent to BLAYNE for resubmission of PA. documented in this encounter [facility] 11-14-2023 Telephone encounter Note Request sent 11/12 to BLAYNE for date ext.. No response, emailed this am to see if possible for pt to have this done today. [facility] 11-13-2023 Telephone encounter Note Signed. [facility] 11-13-2023 Telephone encounter Note Approval noted through email, but only for DOS 11/12/23. Needs new order to be R/S and for DOS extension. [facility] 10-30-2023 Telephone encounter Note Received letter for botox denial from Medicare due to lack of information. Was seen in office yesterday, new information documented. Denial letter and notes sent to BLAYNE for resubmission of PA. [facility] 10-29-2023 Instructions Erika Conway PA-C - 10/29/2023 2:37 PM EDT The OARRS report has been reviewed and is consistent with the patients medical history and medication intake. The patient will continue with oxycodone. She understands that we will not be escalating opioid dosage. The patient was previously offered Narcan but declined. Patient says that there is absolutely no chance that somebody will overdose at home. She was encouraged to keep herself physically active, stretch out, and exercise. We will work on getting the BOTOX injections approved. Follow-up in office in 6 weeks time. Call our office if you would like to get set up your next set of trigger point injections before your next FU and we will get this scheduled. I discussed the patient with Dr. Andres who agrees with my assessment and plan. All of the above is to improve functionality and quality of life. No evidence of drug abuse or diversion is seen at this time. documented in this encounter [facility] 10-29-2023 History of Presen t illness Narrative This note was created using Zingfin. Subjective Capri Aguilar is a 48 year old female. The patient primarily being seen for generalized pain, migraines Patient was last seen on: 09/19/23 At that time, the treatment plan was: see notes Current Meds: Oxycodone 130pm Efficacy: helpful Side effects: denies TENS unit: How often used: Benefit: Physical Therapy: Last UDS: 08/05/23 Last injection: 10/24/23 - Trigger point injections [place]AR[place] reviewed At the present time, the patient reports benefit with her present analgesic therapy. She denies any adverse effects. Since her previous visit, she denies any hospitalizations or ER visits. She states that the trigger point injections helped relieve 50% of her muscle pain and have allowed her to be more active. She has been able to get out and garden since the trigger point injections have decreased her pain levels. The muscle pain is a 3/10 right now. She states the botox injections that were last done 08/06/23 helped decrease her migraines to zero. As long as she keeps them scheduled at 3 month intervals she is able to remain migraine free. Now that they are starting to wear off she is having starting to have migraines about every couple weeks. Once the botox completely wears off she states she has them approximately 8 - 10 migraines a month. She would like to get her next set of botox scheduled before this gets worse. 10/24/2023 10/28/2023 INTAKE PAIN ASSESSMENT Are you having pain associated with your visit today? Yes, Provider notified Pain Level 7 6 Pain Location Back-Lower Generalized Description Aching;Burning;Throbbing Aching;Numbness;Pressure;Radiati ng;Sore;Stiffness;Tightness Duration Amount of Time 12 Duration Units Months Frequency Continuous Intervention/Comfort measure Medication;Distractions;Pillow support Pain Assessment Reassessment HPI PAST MEDICAL HISTORY Diagnosis Date Acute gastritis without mention of hemorrhage CHARCOT Yessqev-Ijzjx-thias disease, deafness, and intellectual disability syndrome Eczema [...] 14 TONSILLECTOMY PRIMARY/SECONDARY <AGE 14 1982 Tonsillectomy Social History Tobacco Use Smoking status: Never Smokeless tobacco: Never Substance Use Topics Alcohol use: Yes Drug use: No Review of Systems Constitutional: Negative for fever and unexpected weight change. Musculoskeletal: + neck pain, back pain, numbness, tingling, muscle cramps/weakness, stiffness, arthritis, leg pain at night, and leg pain with exertion. Objective BP 147/76 (BP Site: Left Arm, BP Position: Sitting, BP Cuff Size: Regular Adult) Pulse 106 Resp 18 Wt 47.2 kg (104 lb) LMP (LMP Unknown) SpO2 99% BMI 16.29 kg/m Physical Exam Vitals and nursing note reviewed. Constitutional: Appearance: Normal appearance. She is well-developed, well-groomed and normal weight. HENT: Head: Normocephalic and atraumatic. Right Ear: Hearing normal. Left Ear: Hearing normal. Eyes: Conjunctiva/sclera: Conjunctivae normal. Musculoskeletal: Comments: Patient walks with a normal gait. There is tenderness noted in the cervical and lumbar region with spasms noted in the trapezius, rhomboid, paraspinal, and latissimus dorsi muscles. The patient has multiple fibromyalgia tender points noted throughout the examination. Strength is 5/5 throughout. Sensation is intact to light touch throughout. SLR is negative. Neurological: Mental Status: She is alert and oriented to person, place, and time. Psychiatric: Attention and Perception: Attention and perception normal. Mood and Affect: Mood and affect normal. Speech: Speech normal. Behavior: Behavior normal. Behavior is cooperative. Thought Content: Thought content normal. Judgment: Judgment normal. Assessment and Plan ASSESSMENT/PLAN: 1. Fibromyalgia - ICD9: 729.1, ICD10: M79.7 (primary diagnosis) The [place]ARRS report has been reviewed and is consistent with the patients medical history and medication intake. The patient will continue with oxycodone. She understands that we will not be escalating opioid dosage. The patient was previously offered Narcan but declined. Patient says that there is absolutely no chance that somebody will overdose at home. She was encouraged to keep herself physically active, stretch out, and exercise. We will work on getting the BOTOX injections approved. Follow-up in office in 6 weeks time. Call our office if you would like to get set up your next set of trigger point injections before your next FU and we will get this scheduled. 2. 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 [facility] 10-29-2023 Miscellaneous Notes I'll discuss it with her at today's office visit. Lebron, Please review the denial below and advise as to how you would like to proceed. Medicare doesn't have the options for peer-2-peer or appeals. I will also forward the email I sent to BLAYNE. Ana Harmon October 29, 2023 9:51 AM Auth/Cert 09/20/2023 3:53 PM Shayne Haney - - Note: [facility] FOLLOW UP-PAVE SURGERY DOS 11/12/2023 Admission Type: [place] Payor: Payor: MEDICARE / Plan: MEDICARE A AND B / Product Type: Medicare / Hospital: [facility] passenger relations representative/website used: [place]: [id number] Phone Number Called: N/A Time of call/verification: 3:49 PM Case Reference number: [id number] Was initial clinical information received? Yes When? 09/19/23 Did payer provide how many pages were received? n/a If yes, How many pages were received? n/a Diagnosis Codes: Diagnoses: G43.909 (ICD-10-CM) - Migraine without status migrainosus, not intractable, unspecified migraine type Procedure Codes: 43916 Call reference: n/a Comments: Per fax the case has been denied, documentation does not support the clinical efectiveness for subsequent botullinum toxin injection per lcd documented in this encounter [facility] 10-29-2023 Telephone encounter Note Lebron, Please review the denial below and advise as to how you would like to proceed. Medicare doesn't have the options for peer-2-peer or appeals. I will also forward the email I sent to BLAYNE. Ana Harmon October 29, 2023 9:51 AM Auth/Cert 09/20/2023 3:53 PM Shayne Haney - - Note: [facility] FOLLOW UP-PAVE SURGERY DOS 11/12/2023 Admission Type: [place] IO Payor: Payor: MEDICARE / Plan: MEDICARE A AND B / Product Type: Medicare / Hospital: [facility]* passenger relations representative/website used: [place]: [id number] Phone Number Called: N/A Time of call/verification: 3:49 PM Case Reference number: [id number] Was initial clinical information received? Yes When? 09/19/23 Did payer provide how many pages were received? n/a If yes, How many pages were received? n/a Diagnosis Codes: Diagnoses: G43.909 (ICD-10-CM) - Migraine without status migrainosus, not intractable, unspecified migraine type Procedure Codes: 62563 Call reference: n/a Comments: Per fax the case has been denied, documentation does not support the clinical efectiveness for subsequent botullinum toxin injection per lcd [facility] 10-24-2023 Telephone encounter Note The following approved medication requests have been transmitted electronically. Requested Prescriptions Pending Prescriptions Disp Refills oxyCODONE concentrate (ROXICODONE) 20 mg/mL concentrated solution 150 mL 0 Sig: Take 0.5-1 mL by mouth every 4 hours as needed for pain for up to 25 days. Take 0.5-1mL every 4 hours as needed for pain for up to 25 days Erika Conway PA-C [facility] 10-24-2023 Miscellaneous Notes The following approved medication requests have been transmitted electronically. Requested Prescriptions Pending Prescriptions Disp Refills oxyCODONE concentrate (ROXICODONE) 20 mg/mL concentrated solution 150 mL 0 Sig: Take 0.5-1 mL by mouth every 4 hours as needed for pain for up to 25 days. Take 0.5-1mL every 4 hours as needed for pain for up to 25 days Erika Conway PA-C Notice for script received from pharmacy - last script sent was dated 10/02/23, now . Spoke with pt who said she does need another script, she has been waiting on it to come in since it is on backorder, but in the meantime. documented in this encounter [facility] 10-24-2023 Telephone encounter Note Notice for script received from pharmacy - last script sent was dated 10/02/23, now . Spoke with pt who said she does need another script, she has been waiting on it to come in since it is on backorder, but in the meantime. [facility] 10-24-2023 Hospital Discharg e Dejon Dunham MD - 10/24/2023 9:22 AM EDT Post-procedure instructions: 1. Rest today. 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 Additional Instructions: documented in this encounter [facility] 10-24-2023 Surgery Surgical operation note Summary: TPI Trigger Point Injection PROCEDURE: trigger point injection CPT code: 36196 PREPROCEDURE DIAGNOSIS: Fibromyalgia POSTPROCEDURE DIAGNOSIS: same ANESTHESIA: none PROCEDURE REPORT: The risks and benefits of the procedure were explained to the patient and all questions were answered. The patient gave consent to proceed with the procedure. The skin was prepped with chlorhexidine solution. A 25G 38 mm needle was used to inject 18 trigger points at the bilateral quadratus lumborum, latissimus dorsi, erector spinae, and rhomboid muscles with a total of 10 mL of bupivacaine 0.25%. The needle was withdrawn intact. The patient tolerated the procedure well with no complications noted. SIGNATURE: Dejon Andres MD PATIENT NAME: Capri Aguilar DATE: October 24, 2023 TIME: 9:22 AM [facility] 10-24-2023 Surgical operatio n note Summary: TPI Trigger Point Injection PROCEDURE: trigger point injection CPT code: 23030 PREPROCEDURE DIAGNOSIS: Fibromyalgia POSTPROCEDURE DIAGNOSIS: same ANESTHESIA: none PROCEDURE REPORT: The risks and benefits of the procedure were explained to the patient and all questions were answered. The patient gave consent to proceed with the procedure. The skin was prepped with chlorhexidine solution. A 25G 38 mm needle was used to inject 18 trigger points at the bilateral quadratus lumborum, latissimus dorsi, erector spinae, and rhomboid muscles with a total of 10 mL of bupivacaine 0.25%. The needle was withdrawn intact. The patient tolerated the procedure well with no complications noted. SIGNATURE: Dejon Andres MD PATIENT NAME: Capri Aguilar DATE: October 24, 2023 TIME: 9:22 AM documented in this encounter [facility] 10-22-2023 Surgery Surgical operation note Summary: TPI Trigger Point Injection PROCEDURE: trigger point injection CPT code: 60176 PREPROCEDURE DIAGNOSIS: Fibromyalgia POSTPROCEDURE DIAGNOSIS: same ANESTHESIA: none PROCEDURE REPORT: The risks and benefits of the procedure were explained to the patient and all questions were answered. The patient gave consent to proceed with the procedure. The skin was prepped with chlorhexidine solution. A 25G 38 mm needle was used to inject 18 trigger points at the lateral sternocleidomastoid, splenius capitis, trapezius, levator scapulae, and rhomboid muscles with a total of 10 mL of bupivacaine 0.25%. The needle was withdrawn intact. The patient tolerated the procedure well with no complications noted. SIGNATURE: Dejon Anrdes MD PATIENT NAME: Capri Aguilar DATE: October 22, 2023 TIME: 3:45 PM [facility] 10-22-2023 Surgical operatio n note Summary: TPI Trigger Point Injection PROCEDURE: trigger point injection CPT code: 14288 PREPROCEDURE DIAGNOSIS: Fibromyalgia POSTPROCEDURE DIAGNOSIS: same ANESTHESIA: none PROCEDURE REPORT: The risks and benefits of the procedure were explained to the patient and all questions were answered. The patient gave consent to proceed with the procedure. The skin was prepped with chlorhexidine solution. A 25G 38 mm needle was used to inject 18 trigger points at the lateral sternocleidomastoid, splenius capitis, trapezius, levator scapulae, and rhomboid muscles with a total of 10 mL of bupivacaine 0.25%. The needle was withdrawn intact. The patient tolerated the procedure well with no complications noted. SIGNATURE: Dejon Andres MD PATIENT NAME: Capri Aguilar DATE: October 22, 2023 TIME: 3:45 PM documented in this encounter [facility] 10-22-2023 Hospital Discharg e instructions Dejon Andres MD - 10/22/2023 3:45 PM EDT Post-procedure instructions: 1. Rest today. 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 Additional Instructions: documented in this encounter [facility] 09-19-2023 Instructions Erika Conway PA-C - 09/19/2023 2:56 PM EDT The OARRS report has been reviewed and is consistent with the patients medical history and medication intake. The patient's most recent drug screen has been reviewed and is appropriate and consistent with current therapy. The patient will continue with oxycodone. She understands that we will not be escalating opioid dosage. The patient was previously offered Narcan but declined. Patient says that there is absolutely no chance that somebody will overdose at home. She was encouraged to keep herself physically active, stretch out, and exercise. Return for your already scheduled injections. Schedule trigger point injections in the neck/upper back x 1 visit and the mid/lower back x 1 visit. Follow-up in office in 6 weeks time. I discussed the patient with Dr. Andres who agrees with my assessment and plan. All of the above is to improve functionality and quality of life. No evidence of drug abuse or diversion is seen at this time. documented in this encounter [facility] 09-19-2023 History of Presen t illness Narrative This note was created using [employer]. Subjective Capri Aguilar is a 47 year old female. The patient primarily being seen for generalized pain, migraines Patient was last seen on: 08/05/23 At that time, the treatment plan was: see notes Current Meds: Oxycodone - last dose this afternoon Efficacy: helps Side effects: TENS unit: doesn't use - is allergic to the pads How often used: Benefit: Physical Therapy: years ago Last UDS: 08/05/23 Last injection: 09/03/23 - TPI OARRS reviewed At the present time, the patient reports benefit with her present analgesic therapy. She denies any adverse effects. Since her previous visit, she denies any hospitalizations or ER visits. She states that the botox injections helped decrease both the severity and frequency of her migraines. The trigger point injections helped relieve 70% of the pain in her upper back, and 85% of the pain in her lower back. All of these have allowed her to be more active. 09/17/2023 09/19/2023 INTAKE PAIN ASSESSMENT Are you having pain associated with your visit today? Yes, Provider notified Yes, Provider notified Pain Scales Verbal (Numeric Rating or Visual Analog Scale) Pain Level 7 7 Pain Location Generalized Description Aching;Numbness;Pressure;Radiati ng;Sore;Stiffness;Tightness Aching;Numbness;Stiffness;Tightn ess;Radiating Duration Amount of Time 12 Duration Units Months Frequency Continuous Continuous Intervention/Comfort measure Relaxation;Distractions Medication;Relaxation HPI PAST MEDICAL HISTORY Diagnosis Date Acute gastritis without mention of hemorrhage CHARCOT Qpgbqsn-Njimo-bqair disease, deafness, and intellectual disability syndrome Eczema [...] 14 TONSILLECTOMY PRIMARY/SECONDARY <AGE 14 1982 Tonsillectomy Social History Tobacco Use Smoking status: Never Smokeless tobacco: Never Substance Use Topics Alcohol use: Yes Drug use: No Review of Systems Constitutional: Negative for fever and unexpected weight change. Musculoskeletal: + neck pain, back pain, numbness, tingling, muscle cramps/weakness, stiffness, arthritis, leg pain at night, and leg pain with exertion. Objective BP 109/57 (BP Site: Left Arm, BP Position: Sitting, BP Cuff Size: Large Adult) Pulse 103 Temp 36.7 C (98.1 F) (Temporal) Resp 18 Ht 170.2 cm (5' 7) Wt 47.2 kg (104 lb) LMP (LMP Unknown) SpO2 97% BMI 16.29 kg/m Physical Exam Vitals and nursing note reviewed. Constitutional: Appearance: Normal appearance. She is well-developed, well-groomed and normal weight. HENT: Head: Normocephalic and atraumatic. Right Ear: Hearing normal. Left Ear: Hearing normal. Eyes: Conjunctiva/sclera: Conjunctivae normal. Musculoskeletal: Comments: Patient walks with a normal gait. There is tenderness noted in the cervical and lumbar region with spasms noted in the trapezius, rhomboid, paraspinal, and latissimus dorsi muscles. The patient has multiple fibromyalgia tender points noted throughout the examination. Strength is 5/5 throughout. Sensation is intact to light touch throughout. SLR is negative. Neurological: Mental Status: She is alert and oriented to person, place, and time. Psychiatric: Attention and Perception: Attention and perception normal. Mood and Affect: Mood and affect normal. Speech: Speech normal. Behavior: Behavior normal. Behavior is cooperative. Thought Content: Thought content normal. Judgment: Judgment normal. Assessment and Plan ASSESSMENT/PLAN: 1. Fibromyalgia - ICD9: 729.1, ICD10: M79.7 (primary diagnosis) The OARRS report has been reviewed and is consistent with the patients medical history and medication intake. The patient's most recent drug screen has been reviewed and is appropriate and consistent with current therapy. The patient will continue with oxycodone. She understands that we will not be escalating opioid dosage. The patient was previously offered Narcan but declined. Patient says that there is absolutely no chance that somebody will overdose at home. She was encouraged to keep herself physically active, stretch out, and exercise. Return for your already scheduled injections. Schedule trigger point injections in the neck/upper back x 1 visit and the mid/lower back x 1 visit. Follow-up in office in 6 weeks time. 2. 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 Aunlcja-Itqgm-Izgtz disease - ICD9: 356.1, ICD10: G60.0 5. Chronic pain syndrome - ICD9: 338.4, ICD10: G89.4 - OXYCODONE 20 MG/ML ORAL CONCENTRATE Erika Conway PA-C documented in this encounter [facility] 09-03-2023 Hospital Discharg e instructions Dejon Andres MD - 09/03/2023 3:05 PM EDT Post-procedure instructions: 1. Rest today. 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 Additional Instructions: documented in this encounter [facility] 09-03-2023 Surgical operatio n note Summary: TPI Trigger Point Injection PROCEDURE: trigger point injection CPT code: 59981 PREPROCEDURE DIAGNOSIS: Fibromyalgia POSTPROCEDURE DIAGNOSIS: same ANESTHESIA: none PROCEDURE REPORT: The risks and benefits of the procedure were explained to the patient and all questions were answered. The patient gave consent to proceed with the procedure. The skin was prepped with chlorhexidine solution. A 25G 38 mm needle was used to inject 20 trigger points at the bilateral gluteus wayne, gluteus medius, quadratus lumborum, and latissimus dorsi muscles with a total of 10 mL of bupivacaine 0.25%. The needle was withdrawn intact. The patient tolerated the procedure well with no complications noted. SIGNATURE: Dejon Andres MD PATIENT NAME: Capri Aguilar DATE: September 03, 2023 TIME: 3:04 PM documented in this encounter [facility] 09-02-2023 Miscellaneous Notes The following approved medication requests have been transmitted electronically. Requested Prescriptions Pending Prescriptions Disp Refills oxyCODONE concentrate (ROXICODONE) 20 mg/mL concentrated solution 150 mL 0 Sig: Take 0.5-1 mL by mouth every 4 hours as needed for pain for up to 25 days. Take 0.5-1mL every 4 hours as needed for pain for up to 25 days Erika Conway PA-C Pt states oxycodone liquid has been out of stock, pt states it is back instock but script is , can you send a new script, please advise Roxana Byrne RN September 02, 2023 12:53 PM documented in this encounter [facility] 08-29-2023 Hospital Discharg e instructions Dejon Andres MD - 08/29/2023 3:06 PM EDT Post-procedure instructions: 1. Rest today. 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 Additional Instructions: documented in this encounter [facility] 08-29-2023 Surgical operatio n note Summary: TPI Trigger Point Injection PROCEDURE: trigger point injection CPT code: 29717 PREPROCEDURE DIAGNOSIS: Fibromyalgia1 POSTPROCEDURE DIAGNOSIS: same ANESTHESIA: none PROCEDURE REPORT: The risks and benefits of the procedure were explained to the patient and all questions were answered. The patient gave consent to proceed with the procedure. The skin was prepped with chlorhexidine solution. A 25G 38 mm needle was used to inject 18 trigger points at the bilateral sternocleidomastoid, splenius capitis, trapezius, and levator scapulae muscles with a total of 10 mL of bupivacaine 0.25%. The needle was withdrawn intact. The patient tolerated the procedure well with no complications noted. SIGNATURE: Dejon Andres MD PATIENT NAME: Capri Aguilar DATE: August 29, 2023 TIME: 3:06 PM documented in this encounter [facility] 08-12-2023 Procedure note [facility] 08-12-2023 Note [facility] Medical Records Department [address] [place] [address] Discharge Summary 08/12/23 0948 MR#: [id number] Acct: [id number] Name: CAPRI AGUILAR Rep #: [id number] : 1975 47 From: Mohit Henley MD PCP: Dr. Luisa Pemberton MD Status:[facility] Location: [place] [address] Providers Primary Care Physician: Dr. Luisa Pemberton MD Reason For Visit: Myringotomy,Tubes/ T- TUBES Medications at Discharge Home Medications ipratropium bromide 42 mcg (0.06 %) nasal spray 2 spray intranasal PRN PRN allergy symptoms 07/31/23 megestrol 400 mg/10 mL (40 mg/mL) oral suspension 80 mg PO DAILY 07/31/23 montelukast 10 mg tablet (Singulair) 10 mg PO QHS 07/31/23 multivitamin (Daily Multi-Vitamin tablet) 1 tab PO DAILY 07/31/23 ondansetron 8 mg disintegrating tablet 8 mg PO BID 07/31/23 oxycodone 20 mg/mL oral concentrate 20 mg PO Q4H 07/31/23 Weight / BMI Weight Weight: 49.1 kg Body Mass Index (BMI) 16.9 ABG / Lab / Microbiology Data 08/08/23 13:36 08/08/23 13:36 D/C Instructions Discharge Diet: No restrictions Discharge Activity: Return to Normal Activity Additional Instructions: Ear drops....5 drops each ear twice a day for 2 days (3 doses) Please Follow Up With: Mohit Henley MD When: 2-3 weeks Meaningful Use Info Meaningful Use Diagnoses (Choose all that apply): None applicable Discharge Plan Admission Attending Provider: Mohit Henley Primary Care Provider: Luisa Pemberton Discharge Orders/Prescriptions Prescriptions: No Action oxycodone 20 mg/mL concentrate 20 mg PO Q4H Patient Comments: TAKE 0.5-1 ML BY MOUTH EVERY 4 HOURS ondansetron 8 mg tablet,disintegrating 8 mg PO BID megestrol 400 mg/10 mL (40 mg/mL) suspension 80 mg PO DAILY Patient Comments: TAKE 2 MILLILITERS BY MOUTH TWICE A DAY montelukast [Singulair] 10 mg tablet 10 mg PO QHS Patient Comments: Take 1 tablet oral once a day multivitamin [Daily Multi-Vitamin] Tablet 1 tab PO DAILY ipratropium bromide 42 mcg (0.06 %) spray,non-aerosol 2 spray INTRANASAL PRN PRN (Reason: allergy symptoms) Patient Comments: SPRAY 2 SPRAYS INTO EACH NOSTRIL TWICE A DAY Referrals / Follow Up: Luisa Pemberton MD [Primary Care Provider] - Disposition Disposition (needs filled in before D/C Order can be placed): Home, Self Care 08/12/23 0997 Cosigner Signature (if applicable): CC: Dr. Luisa Pemberton MD; Dr. Mohit Henley MD Signed [facility] 08-06-2023 Hospital Discharg e instructions Dejon Andres [...] normally would, but you do need a rear load truck driver. Additional Instructions: documented in this encounter [facility] 08-06-2023 Surgical operatio n note Summary: Botox injection Botox Injection PROCEDURE: Botox injection CPT code: 67148 PREPROCEDURE DIAGNOSIS: Migraine headache POSTPROCEDURE DIAGNOSIS: same ANESTHESIA: none PROCEDURE REPORT: The risks and benefits of the procedure were explained to the patient and all questions were answered. The patient gave consent to proceed with the procedure. The skin was prepped with alcohol. BOTOX Lot Number: [id number] BOTOX was reconstituted to a concentration of 2.5 U/0.1mL. The following injections were made using a 30G needle: 15 Botox units to the procerus muscle 15 Botox units to the right senior hydrogeologist supercilii muscle 15 Botox units to the left senior hydrogeologist supercilii muscle 30 Botox units to the frontalis muscle 20 Botox units to the right temporalis muscle 20 Botox units to the left temporalis muscle 25 Botox units to the right occipitalis muscle 25 Botox units to the left occipitalis muscle The needle was withdrawn intact. The patient tolerated the procedure well with no complications noted. SIGNATURE: Dejno Andres MD PATIENT NAME: Capri Aguilar DATE: August 06, 2023 TIME: 2:51 PM documented in this encounter [facility] 07-25-2023 Miscellaneous Notes The following approved medication [...] Ref Range Status 01/31/2023 FINAL Final Comment: ==== Opiate Class, MS, Ur RFX Oxycodone Class, MS, Ur RFX ToxAssure Flex 23, Ur ==== Test Result Flag Units Drug Present Oxycodone 7125 ng/mg creat Oxymorphone 42295 ng/mg creat Noroxycodone >99682 ng/mg creat Noroxymorphone 5903 ng/mg creat Sources of oxycodone are scheduled prescription medications. Oxymorphone, noroxycodone, and noroxymorphone are expected metabolites of oxycodone. Oxymorphone is also available as a scheduled prescription medication. ==== Test Result Flag Units Ref Range Creatinine 68 mg/dL >=20 ==== Declared Medications: Medication list was not provided. ==== For clinical consultation, please call . ==== No results found for: UQNOTE, OPIATEPNMGT, DRUGSCRPAIN Urine Panel: No results found for: UQCANN, UQBNZL, MOR7DYO, UQAMPH, UQMAMP, UQBUPRE, UQNORBUP, UQMTHD, UQEDDP, UQTRAM, UQDTRM, UQFNTL, UQNFTL, UQCODE, UQMORP, UQDCDN, UQHCOD, UQOXYC, UQHMOR, UQOXYM, UQCREA, UQPH, UQSPGR, UQOXID, UQSPQ @FLOW([id number])@ Lab Results Component Value Date SUMM FINAL 01/31/2023 Summary Report (Summary) Date Value Ref Range Status 01/30/2022 FINAL Final Comment: ==== TOXASSURE COMP DRUG ANALYSIS,UR ==== Test Result Flag Units Drug Present Oxycodone 6739 ng/mg creat Oxymorphone >7299 ng/mg creat Noroxycodone >7299 ng/mg creat Noroxymorphone >7299 ng/mg creat Sources of oxycodone are scheduled prescription medications. Oxymorphone, noroxycodone, and noroxymorphone are expected metabolites of oxycodone. Oxymorphone is also available as a scheduled prescription medication. ==== Test Result Flag Units Ref Range Creatinine 137 mg/dL >=20 ==== Declared Medications: Medication list was not provided. ==== For clinical consultation, please call . ==== Last Opioid agreement effective date: 07/03/2022 Please review and advise. Margot Lanier RN documented in this encounter [facility] 04-23-2023 Miscellaneous Notes Summary: Pt to see Dr Andres Items addressed in this encounter: MyChart Encounter Patient will see Dr Andres and speak to him about her injections. She will call in for refills until her first appt with Dr Andres Jun 19, 2023 Able to close encounter. Sharyn Page MA April 23, 2023 1:09 PM 1:09 PM documented in this encounter [facility] 04-23-2023 Miscellaneous Notes Summary: Virtual Visit Pre Check In Items addressed in this encounter: Virtual Visit Pre Check In Able to close encounter. Sharyn Page MA April 23, 2023 6:40 AM 6:40 AM documented in this encounter [facility] 03-27-2023 Miscellaneous Notes Discussed with Ana, she will call pt Roxana Byrne RN March 27, 2023 2:06 PM documented in this encounter [facility] 03-19-2023 Miscellaneous Notes Order placed Capri Gonzalez will be due for her next Botox injection on May 01. Please build a case and closer to that date I will speak to her and get an update on the previous injection. Ana Harmon March 19, 2023 11:02 AM documented in this encounter [facility] 03-18-2023 Instructions Morteza Meza DO - 03/18/2023 4:54 PM EDT Continue OxyIR liquid 2. Continue Botox q12 weeks - last done on 01/31/23-100% relief. Check on rescheduling for 05/01/2023. 3. Continue Trigger Point Injections - last done on 10/25/22-TPI scheduled for 04/24/23 5. Patient was transferred to for next follow-up visit in 3 months. documented in this encounter [facility] 03-18-2023 History of Presen t illness Narrative Summary: Pain management follow-up DATE: March 18, 2023 Chief Complaint: migraines, whole body joint and muscle pain ___ History of Present Illness: Capri Aguilar is a 47 year old female being seen at [facility] for a evaluation and/or management of their chronic pain. The patient was last seen in a virtual health visit on 02/22/2023 by Paola Falcon NP, and the plan of care was as follows: Continue OxyIR liquid Continue Botox q12 weeks - last done on 01/31/23-100% relief Continue Trigger Point Injections - last done on 10/25/22-scheduled for 9/20/23 F/U in 1 month Pain Location: generalized [...] 05/04/2020 Medication trials: Imitrex, Topamax, nortriptyline, Maxalt, appm-ijk-[id number] Excedrin, Tylenol, Advil, Phenergan, patient cannot tolerate caffeine products or muscle relaxants PDMP website checked and validated. The OARRS report has been reviewed and is consistent with the patients medical history and medication intake. Last Opioid agreement effective date: 07/03/2022 Last UDS: Reviewed - No inconsistencies noted. Summary Report Date Value Ref Range Status 01/31/2023 FINAL Final Comment: ==== Opiate Class, MS, Ur RFX Oxycodone Class, MS, Ur RFX ToxAssure Flex 23, Ur ==== Test Result Flag Units Drug Present Oxycodone 7125 ng/mg creat Oxymorphone 72105 ng/mg creat Noroxycodone >84310 ng/mg creat Noroxymorphone 5903 ng/mg creat Sources of oxycodone are scheduled prescription medications. Oxymorphone, noroxycodone, and noroxymorphone are expected metabolites of oxycodone. Oxymorphone is also available as a scheduled prescription medication. ==== Test Result Flag Units Ref Range Creatinine 68 mg/dL >=20 ==== Declared Medications: Medication list was not provided. ==== For clinical consultation, please call . ==== Summary Report (Summary) Date Value Ref Range Status 01/30/2022 FINAL Final Comment: ==== TOXASSURE COMP DRUG ANALYSIS,UR ==== Test Result Flag Units Drug Present Oxycodone 6739 ng/mg creat Oxymorphone >7299 ng/mg creat Noroxycodone >7299 ng/mg creat Noroxymorphone >7299 ng/mg creat Sources of oxycodone are scheduled prescription medications. Oxymorphone, noroxycodone, and noroxymorphone are expected metabolites of oxycodone. Oxymorphone is also available as a scheduled prescription medication. ==== Test Result Flag Units Ref Range Creatinine 137 mg/dL >=20 ==== Declared Medications: Medication list was not provided. ==== For clinical consultation, please call . ==== Chronic Pain Functional Assessment Tools Pain Disability [...] Acute gastritis without mention of hemorrhage CHARCOT Kbormqe-Mgbmd-obwpj disease, deafness, and intellectual disability syndrome Eczema [...] Q79.60 5. Chronic pain syndrome G89.4 6. 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 Chronic pain [...] this encounter was entered by Renetta Guajardo certified medical technician assistant for Dr. Morteza Meza on March 18, [...] March 18, 2023. documented in this encounter [facility] 02-22-2023 Instructions Paola Falcon APRN.BROILER SUPERVISOR - 02/22/2023 4:09 PM EDT Continue OxyIR liquid Continue Botox q12 weeks - last done on 01/31/23-100% relief Continue Trigger Point Injections - last done on 10/25/22-scheduled for 02/27/23 F/U in 1 month Paola Falcon APRN.VISHAL documented in this encounter [facility] 02-22-2023 Miscellaneous Notes I spoke with Capri and verified her TPI's are on Feb 27 at 3:45. She verbalized understanding. There was a different procedure scheduled that day/time so it was corrected. Ana February 22, 2023 4:07 PM documented in this encounter [facility] 02-22-2023 History of Presen t illness Narrative This video visit was performed via [employer] video visit. Patient consented to receive health care services via virtual visit for this encounter Provider Location: Non-[facility] Facility Patient Location: Patient Home or Place of Residence I have communicated my name and active licensure. The patient's identity and physical location were verified at the time of this visit. Either the patient or their legal signs sales representative has been informed of the risks and benefits of -- and alternatives to -- treatment through a remote evaluation and consents to proceed with the evaluation remotely. Chief Complaint: Pain ___ History of Present Illness: Capri Aguilar is a 47 year old year old female being seen at [facility] for a evaluation [...] 05/04/2020 Medication trials: Imitrex, Topamax, nortriptyline, Maxalt, [id number]-svt-cmmeber Excedrin, Tylenol, Advil, Phenergan, patient cannot tolerate caffeine products or muscle relaxants PDMP website checked and validated. The OARRS report has been reviewed and is consistent with the patients medical history and medication intake. Last Opioid agreement effective date: 07/03/2022 Last UDS: Reviewed - No inconsistencies noted. Summary Report Date Value Ref Range Status 01/31/2023 FINAL Final Comment: ==== Opiate Class, MS, Ur RFX Oxycodone Class, MS, Ur RFX ToxAssure Flex , Ur ==== Test Result Flag Units Drug Present Oxycodone 7125 ng/mg creat Oxymorphone 10665 ng/mg creat Noroxycodone >43860 ng/mg creat Noroxymorphone 5903 ng/mg creat Sources of oxycodone are scheduled prescription medications. Oxymorphone, noroxycodone, and noroxymorphone are expected metabolites of oxycodone. Oxymorphone is also available as a scheduled prescription medication. ==== Test Result Flag Units Ref Range Creatinine 68 mg/dL >=20 ==== Declared Medications: Medication list was not provided. ==== For clinical consultation, please call . ==== Chronic Pain Functional Assessment Tools Pain Disability [...] Acute gastritis without mention of hemorrhage CHARCOT Hxailie-Bncsq-yexll disease, deafness, and intellectual disability syndrome Eczema [...] Q79.60 5. Chronic pain syndrome G89.4 6. Kqkcmfw-Gndgp-Qxfgx syndrome G60.0 7. 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 Migraine variant G43.809 9. Myofascial pain syndrome M79.18 10. POTS (postural orthostatic tachycardia syndrome) G90.A 11. Marfan's syndrome Q87.40 12. 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 [...] 2023 3:45 PM documented in this encounter [facility] 02-21-2023 Miscellaneous Notes Summary: Virtual Visit Pre Check In Items addressed in this encounter: Virtual Visit Pre Check In Able to close encounter. Sharyn Page MA February 21, 2023 3:24 PM 3:24 PM documented in this encounter [facility] 01-31-2023 Surgical operatio n note Summary: Botox injections FUNCTIONAL ASSESSMENT: See nurses documentation. Pt had 50% benefit from the last injection. MIGRAINE PROGRESS NOTE: Location: Bilateral occipital, bilateral temporal, bilateral frontal region, bilateral cervical paraspinal muscle Frequency: Greater than 180 hours prior to starting Botox injections. Patient had 0 migraine attacks last month with current regimen. Medication trials: Imitrex, Topamax, Maxalt, vkak-nvj-zmkwgqx Excedrin, Tylenol, Advil, Phenergan, patient cannot tolerate [...] the face at the temporal region was [id number]. The expiration date is July of 2025. The Botox lot number utilized for the cervical and occipital regions was [id number].The expiration date is also the same of July 2025. Botox was reconstituted to a concentration of 5 units per 0.1 cc. The following injections were made using a 25-gauge, 38 mm needle: 1. 10 units divided in 2 sites to the senior hydrogeologist muscles. 2. 5 units in 1 site [...] this encounter was entered by Renetta Guajardo certified medical technician assistant, for Dr. Morteza Meza on January 31, [...] January 31, 2023. documented in this encounter [facility] 01-23-2023 History of Presen t illness Narrative This video visit was performed via [employer] video visit. Patient consented to receive health care services via virtual visit for this encounter Provider Location: Non-[facility] Facility Patient Location: Patient Home or Place of Residence I have communicated my name and active licensure. The patient's identity and physical location were verified at the time of this visit. Either the patient or their legal signs sales representative has been informed of the risks and benefits of -- and alternatives to -- treatment through a remote evaluation and consents to proceed with the evaluation remotely. Chief Complaint: Pain ___ History of Present Illness: Capri Aguilar is a 47 year old year old female being seen at [facility] for a evaluation [...] 05/04/2020 Medication trials: Imitrex, Topamax, nortriptyline, Maxalt, mcgu-tmj-wocplal Excedrin, Tylenol, Advil, Phenergan, patient cannot tolerate caffeine products or muscle relaxants PDMP website checked and validated. The OARRS report has been reviewed and is consistent with the patients medical history and medication intake. Last Opioid agreement effective date: 07/03/2022 Last UDS: Reviewed - No inconsistencies noted. Summary Report Date Value Ref Range Status 08/01/2022 FINAL Final Comment: ==== Opiate Class, MS, Ur RFX Oxycodone Class, MS, Ur RFX ToxAssure Flex 23, Ur ==== Test Result Flag Units Drug Present Oxycodone 98819 ng/mg creat Oxymorphone >45083 ng/mg creat Noroxycodone >40084 ng/mg creat Noroxymorphone 9037 ng/mg creat Sources of oxycodone are scheduled prescription medications. Oxymorphone, noroxycodone, and noroxymorphone are expected metabolites of oxycodone. Oxymorphone is also available as a scheduled prescription medication. ==== Test Result Flag Units Ref Range Creatinine 84 mg/dL >=20 ==== Declared Medications: Medication list was not provided. ==== For clinical consultation, please call . ==== Chronic Pain Functional Assessment Tools Pain Disability [...] Acute gastritis without mention of hemorrhage CHARCOT Madmlwr-Lgrpg-hrvuk disease, deafness, and intellectual disability syndrome Eczema [...] Chronic pain is persistent. Medications are helping aCpri Aguilar to have an improved quality of life. Patient compliance with Opioid Contract: not applicable Encounter Diagnosis ICD-10-CM 1. Other chronic pain G89.29 2. Fibromyalgia M79.7 3. 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 Z79.891 Plan: [...] Demian Forman APRN.CNP documented in this encounter [facility] 01-23-2023 Instructions Demian Forman APRN.CNP - 01/23/2023 1:13 PM EDT Order UDS - will collect at procedure Continue OxyIR liquid Continue Botox q12 weeks - last done on 11/01/22 Continue Trigger Point Injections - last done on 10/25/22 She declines further lidocaine infusions F/U in 1 month documented in this encounter [facility] 12-19-2022 History of Presen t illness Narrative This video visit was performed via [employer] video visit. Patient consented to receive health care services via virtual visit for this encounter Provider Location: Non-[facility] Patient Location: Patient Home or Place of Residence I have communicated my name and active licensure. The patient's identity and physical location were verified at the time of this visit. Either the patient or their legal signs sales representative has been informed of the risks and benefits of -- and alternatives to -- treatment through a remote evaluation and consents to proceed with the evaluation remotely. Chief Complaint: Pain ___ History of Present Illness: Capri Aguilar is a 47 year old year old female being seen at [facility] for a evaluation [...] 05/04/2020 Medication trials: Imitrex, Topamax, nortriptyline, Maxalt, zojh-tmd-mxlspyn Excedrin, Tylenol, Advil, Phenergan, patient cannot tolerate caffeine products or muscle relaxants PDMP website checked and validated. The OARRS report has been reviewed and is consistent with the patients medical history and medication intake. Last Opioid agreement effective date: 07/03/2022 Last UDS: Reviewed - No inconsistencies noted. Summary Report Date Value Ref Range Status 08/01/2022 FINAL Final Comment: ==== Opiate Class, MS, Ur RFX Oxycodone Class, MS, Ur RFX ToxAssure Flex 23, Ur ==== Test Result Flag Units Drug Present Oxycodone 12589 ng/mg creat Oxymorphone >94976 ng/mg creat Noroxycodone >21764 ng/mg creat Noroxymorphone 9037 ng/mg creat Sources of oxycodone are scheduled prescription medications. Oxymorphone, noroxycodone, and noroxymorphone are expected metabolites of oxycodone. Oxymorphone is also available as a scheduled prescription medication. ==== Test Result Flag Units Ref Range Creatinine 84 mg/dL >=20 ==== Declared Medications: Medication list was not provided. ==== For clinical consultation, please call . 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 Patient consented to receive health care services via virtual visit for this encounter Provider Location: Non-[facility] Facility Patient Location: Patient Home or Place of Residence I have communicated my name and active licensure. The patient's identity and physical location were verified at the time of this visit. Either the patient or their legal signs sales representative has been informed of the risks and benefits of -- and alternatives to -- treatment through a remote evaluation and consents to proceed with the evaluation remotely. Chief Complaint: Pain ___ History of Present Illness: Capri Aguilar is a 47 year old year old female being seen at [facility] for a evaluation [...] 05/04/2020 Medication trials: Imitrex, Topamax, nortriptyline, Maxalt, tkhr-zvp-yorzcyb Excedrin, Tylenol, Advil, Phenergan, patient cannot tolerate caffeine products or muscle relaxants PDMP website checked and validated. The OARRS report has been reviewed and is consistent with the patients medical history and medication intake. Last Opioid agreement effective date: 07/03/2022 Last UDS: Reviewed - No inconsistencies noted. Summary Report Date Value Ref Range Status 08/01/2022 FINAL Final Comment: ==== Opiate Class, MS, Ur RFX Oxycodone Class, MS, Ur RFX ToxAssure Flex 23, Ur ==== Test Result Flag Units Drug Present Oxycodone 76186 ng/mg creat Oxymorphone >46048 ng/mg creat Noroxycodone >86276 ng/mg creat Noroxymorphone 9037 ng/mg creat Sources of oxycodone are scheduled prescription medications. Oxymorphone, noroxycodone, and noroxymorphone are expected metabolites of oxycodone. Oxymorphone is also available as a scheduled prescription medication. ==== Test Result Flag Units Ref Range Creatinine 84 mg/dL >=20 ==== Declared Medications: Medication list was not provided. ==== For clinical consultation, please call . ==== Chronic Pain Functional Assessment Tools Pain Disability [...] Acute gastritis without mention of hemorrhage CHARCOT Rguqkxc-Exira-qkzio disease, deafness, and intellectual disability syndrome Eczema [...] ANES 05/20 Myringotomy/tubes PAST SURGICAL HISTORY OF 05, 04, 03, 01 FOOT, KNEE,ANKLES PAST SURGICAL HISTORY OF 2002 MUSCLE BIOPSY PAST SURGICAL HISTORY OF 1997 CARDIAC SURGERY TONSILLECTOMY & ADENOIDECTOMY <AGE 14 TONSILLECTOMY PRIMARY/SECONDARY <AGE 14 1983 Tonsillectomy FAMILY HISTORY Problem Relation Age of [...] syndrome Q79.60 5. Migraine variant G43.809 6. 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 Thanks documented in this encounter [facility] 10-10-2022 History of Presen t illness Narrative This video visit was performed via [employer] video visit. Patient consented to receive health care services via virtual visit for this encounter Provider Location: Non-[facility] Facility Patient Location: Patient Home or Place of Residence I have communicated my name and active licensure. The patient's identity and physical location were verified at the time of this visit. Either the patient or their legal signs sales representative has been informed of the risks and benefits of -- and alternatives to -- treatment through a remote evaluation and consents to proceed with the evaluation remotely. Chief Complaint: Pain ___ History of Present Illness: Capri Aguilar is a 46 year old year old female being seen at [facility] for a evaluation [...] Ref Range Status 08/01/2022 FINAL Final Comment: ==== Opiate Class, MS, Ur RFX Oxycodone Class, MS, Ur RFX ToxAssure Flex 23, Ur ==== Test Result Flag Units Drug Present Oxycodone 57965 ng/mg creat Oxymorphone >74360 ng/mg creat Noroxycodone >56755 ng/mg creat Noroxymorphone 9037 ng/mg creat Sources of oxycodone are scheduled prescription medications. Oxymorphone, noroxycodone, and noroxymorphone are expected metabolites of oxycodone. Oxymorphone is also available as a scheduled prescription medication. ==== Test Result Flag Units Ref Range Creatinine 84 mg/dL >=20 ==== Declared Medications: Medication list was not provided. ==== For clinical consultation, please call . ==== Chronic Pain Functional Assessment Tools Pain Disability [...] Acute gastritis without mention of hemorrhage CHARCOT Dljzqlg-Zzjxg-uaojq disease, deafness, and intellectual disability syndrome Eczema [...] ANES 05/20 Myringotomy/tubes PAST SURGICAL HISTORY OF 05, 04, 03, 01 FOOT, KNEE,ANKLES PAST SURGICAL [...] pain is persistent. Medications are helping Capri Lynch Aguilar to have an improved quality of life. Patient compliance with Opioid Contract: not applicable Encounter Diagnosis ICD-10-CM 1. Other chronic pain G89.29 2. 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 Z79.891 3. [...] Demian Forman APRN.CNP documented in this encounter [facility] 10-10-2022 Instructions Demian Forman APRN.CNP - 10/10/2022 2:03 PM EDT Continue OxyIR liquid Continue Botox q12 weeks, patient already has future appointment scheduled Continue Trigger Point Injections, patient already has future appointment scheduled. She declines further lidocaine infusions F/U in 1 month documented in this encounter [facility] 09-12-2022 History of Presen t illness Narrative This video visit was performed via [employer] video visit. Patient consented to receive health care services via virtual visit for this encounter Provider Location: Non-[facility] Patient Location: Patient Home or Place of Residence I have communicated my name and active licensure. The patient's identity and physical location were verified at the time of this visit. Either the patient or their legal signs sales representative has been informed of the risks and benefits of -- and alternatives to -- treatment through a remote evaluation and consents to proceed with the evaluation remotely. Chief Complaint: Pain ___ History of Present Illness: Capri Aguilar is a 46 year old year old female being seen at [facility] [place] for a evaluation and/or management of her [...] Ref Range Status 08/01/2022 FINAL Final Comment: ==== Opiate Class, MS, Ur RFX Oxycodone Class, MS, Ur RFX ToxAssure Flex 23, Ur ==== Test Result Flag Units Drug Present Oxycodone 26178 ng/mg creat Oxymorphone >76394 ng/mg creat Noroxycodone >03961 ng/mg creat Noroxymorphone 9037 ng/mg creat Sources of oxycodone are scheduled prescription medications. Oxymorphone, noroxycodone, and noroxymorphone are expected metabolites of oxycodone. Oxymorphone is also available as a scheduled prescription medication. ==== Test Result Flag Units Ref Range Creatinine 84 mg/dL >=20 ==== Declared Medications: Medication list was not provided. ==== For clinical consultation, please call . ==== Chronic Pain Functional Assessment Tools Pain Disability [...] Acute gastritis without mention of hemorrhage CHARCOT Xiziogj-Qrqzu-bemuz disease, deafness, and intellectual disability syndrome Eczema [...] ICD-10-CM 1. Other chronic pain G89.29 2. 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 Z79.891 3. [...] Demian Forman APRN.CNP documented in this encounter [facility] 09-12-2022 Instructions Demian Forman APRN.CNP - 09/12/2022 1:00 PM EDT Continue OxyIR liquid Continue Botox q12 weeks, patient already has future appointment scheduled Continue Trigger Point Injections, patient already has future appointment scheduled. She declines further lidocaine infusions F/U in 1 month documented in this encounter [facility] 08-23-2022 Surgical operatio n note Summary: Trigger [...] this encounter was entered by Renetta Guajardo certified medical technician assistant, for Dr. Morteza Meza on August 23, [...] August 23, 2022. documented in this encounter [facility] 08-21-2022 History of Presen t illness Narrative This video visit was performed via [employer] video visit. Patient consented to receive health care services via virtual visit for this encounter Provider Location: Non-[facility] Patient Location: Patient Home or Place of Residence I have communicated my name and active licensure. The patient's identity and physical location were verified at the time of this visit. Either the patient or their legal signs sales representative has been informed of the risks and benefits of -- and alternatives to -- treatment through a remote evaluation and consents to proceed with the evaluation remotely. Chief Complaint: Pain ___ History of Present Illness: Capri Aguilar is a 46 year old year old female being seen at [facility] for a evaluation [...] Ref Range Status 08/01/2022 FINAL Final Comment: ==== Opiate Class, MS, Ur RFX Oxycodone Class, MS, Ur RFX ToxAssure Flex 23, Ur ==== Test Result Flag Units Drug Present Oxycodone 51675 ng/mg creat Oxymorphone >30189 ng/mg creat Noroxycodone >44945 ng/mg creat Noroxymorphone 9037 ng/mg creat Sources of oxycodone are scheduled prescription medications. Oxymorphone, noroxycodone, and noroxymorphone are expected metabolites of oxycodone. Oxymorphone is also available as a scheduled prescription medication. ==== Test Result Flag Units Ref Range Creatinine 84 mg/dL >=20 ==== Declared Medications: Medication list was not provided. ==== For clinical consultation, please call . ==== Chronic Pain Functional Assessment Tools Pain Disability [...] Acute gastritis without mention of hemorrhage CHARCOT Nnuyufg-Xekvg-ptwzl disease, deafness, and intellectual disability syndrome Eczema [...] ICD-10-CM 1. Other chronic pain G89.29 2. 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 [...] Demian Forman APRN.CNP documented in this encounter [facility] 08-21-2022 Instructions Demian Forman APRN.CNP - 08/21/2022 2:52 PM EDT Continue OxyIR liquid Continue Botox q12 weeks, patient already has future appointment scheduled Continue Trigger Point Injections, patient already has future appointment scheduled. She declines further lidocaine infusions F/U in 1 month documented in this encounter [facility] 07-24-2022 Miscellaneous Notes I left a message to schedule Botox. Offer 08/01/2022 Ana July 24, 2022 2:24 PM documented in this encounter [facility] 07-03-2022 History of Presen t illness Narrative This video visit was performed via [employer] video visit. Patient consented to receive health care services via virtual visit for this encounter Provider Location: Non-[facility] Facility Patient Location: Patient Home or Place of Residence Risks, benefits, and limitations of receiving care virtually were discussed with the patient. The patient expressed understanding and is willing to proceed. Chief Complaint: Pain ___ History of Present Illness: Capri Aguilar is a 46 year old year old female being seen at [facility] for a evaluation [...] Ref Range Status 01/30/2022 FINAL Final Comment: ==== TOXASSURE COMP DRUG ANALYSIS,UR ==== Test Result Flag Units Drug Present Oxycodone 6739 ng/mg creat Oxymorphone >7299 ng/mg creat Noroxycodone >7299 ng/mg creat Noroxymorphone >7299 ng/mg creat Sources of oxycodone are scheduled prescription medications. Oxymorphone, noroxycodone, and noroxymorphone are expected metabolites of oxycodone. Oxymorphone is also available as a scheduled prescription medication. ==== Test Result Flag Units Ref Range Creatinine 137 mg/dL >=20 ==== Declared Medications: Medication list was not provided. ==== For clinical consultation, please call . ==== Pain Disability Index 04/18/2022 07/02/2022 Family/Home Responsibilities [...] Acute gastritis without mention of hemorrhage CHARCOT Sskheva-Kvsmr-afcqm disease, deafness, and intellectual disability syndrome Eczema [...] ICD-10-CM 1. Other chronic pain G89.29 2. 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 [...] Demian Forman APRN.CNP documented in this encounter [facility] 07-03-2022 Instructions Demian Forman APRN.CNP - 07/03/2022 1:09 PM EST Continue OxyIR liquid Continue Botox q12 weeks, patient already has future appointment scheduled Continue Trigger Point Injections, patient already has future appointment scheduled. She declines further lidocaine infusions F/U in 1 month documented in this encounter [facility] 06-06-2022 Miscellaneous Notes The following approved medication [...] June 17, 2022. Authorizing Provider: DEMIAN FORMAN APRN.VISHAL documented in this encounter [facility] 05-07-2022 History of Presen t illness Narrative This video visit was performed via [employer] video visit. Patient consented to receive health care services via virtual visit for this encounter Provider Location: Non-[facility] Facility Patient Location: Patient Home or Place of Residence Risks, benefits, and limitations of receiving care virtually were discussed with the patient. The patient expressed understanding and is willing to proceed. Chief Complaint: Pain ___ History of Present Illness: Capri Aguilar is a 46 year old year old female being seen at [facility] for a evaluation [...] Ref Range Status 01/30/2022 FINAL Final Comment: ==== TOXASSURE COMP DRUG ANALYSIS,UR ==== Test Result Flag Units Drug Present Oxycodone 6739 ng/mg creat Oxymorphone >7299 ng/mg creat Noroxycodone >7299 ng/mg creat Noroxymorphone >7299 ng/mg creat Sources of oxycodone are scheduled prescription medications. Oxymorphone, noroxycodone, and noroxymorphone are expected metabolites of oxycodone. Oxymorphone is also available as a scheduled prescription medication. ==== Test Result Flag Units Ref Range Creatinine 137 mg/dL >=20 ==== Declared Medications: Medication list was not provided. ==== For clinical consultation, please call . ==== REVIEW OF SYSTEMS: GENERAL: No weight loss or fevers RESPIRATORY: Negative for cough CARDIOVASCULAR: Negative for chest pain GI: No nausea, vomiting, or diarrhea. MUSCULOSKELETAL: Positive joint pain or swelling, back pain or muscle pain. PAST MEDICAL HISTORY Diagnosis Date Acute gastritis without mention of hemorrhage CHARCOT Qbiytkf-Ktnav-jozlh disease, deafness, and intellectual disability syndrome Eczema [...] ICD-10-CM 1. Other chronic pain G89.29 2. 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 Z79.891 3. [...] Demian Forman APRN.CNP documented in this encounter [facility] 05-07-2022 Instructions Demian Forman APRN.CNP - 05/07/2022 1:33 PM EST Continue OxyIR liquid Continue Botox q12 weeks, patient already has future appointment scheduled Continue Trigger Point Injections, patient already has future appointment scheduled. She declines further lidocaine infusions F/U in 1 month documented in this encounter [facility] 04-20-2022 History of Presen t illness Narrative This video visit was performed via [employer] video visit. Patient consented to receive health care services via virtual visit for this encounter Provider Location: Non-[facility] Facility Patient Location: Patient Home or Place of Residence Risks, benefits, and limitations of receiving care virtually were discussed with the patient. The patient expressed understanding and is willing to proceed. Chief Complaint: Pain ___ History of Present Illness: Capri Aguilar is a 46 year old year old female being seen at [facility] for a evaluation [...] Ref Range Status 01/30/2022 FINAL Final Comment: ==== TOXASSURE COMP DRUG ANALYSIS,UR ==== Test Result Flag Units Drug Present Oxycodone 6739 ng/mg creat Oxymorphone >7299 ng/mg creat Noroxycodone >7299 ng/mg creat Noroxymorphone >7299 ng/mg creat Sources of oxycodone are scheduled prescription medications. Oxymorphone, noroxycodone, and noroxymorphone are expected metabolites of oxycodone. Oxymorphone is also available as a scheduled prescription medication. ==== Test Result Flag Units Ref Range Creatinine 137 mg/dL >=20 ==== Declared Medications: Medication list was not provided. ==== For clinical consultation, please call . ==== REVIEW OF SYSTEMS: GENERAL: No weight loss or fevers RESPIRATORY: Negative for cough CARDIOVASCULAR: Negative for chest pain GI: No nausea, vomiting, or diarrhea. MUSCULOSKELETAL: Positive joint pain or swelling, back pain or muscle pain. PAST MEDICAL HISTORY Diagnosis Date Acute gastritis without mention of hemorrhage CHARCOT Aptcxnz-Mbcns-oxdeu disease, deafness, and intellectual disability syndrome Eczema [...] ANES 05/20 Myringotomy/tubes PAST SURGICAL HISTORY OF 05, 04, 03, 01 FOOT, KNEE,ANKLES PAST SURGICAL [...] Encounter Diagnosis ICD-10-CM 1. Fibromyalgia M79.7 2. 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 [...] Demian Forman APRN.CNP documented in this encounter [facility] 04-20-2022 Instructions Demian Forman APRN.CNP - 04/20/2022 2:42 PM EST Continue OxyIR liquid Continue Botox q12 weeks, patient already has future appointment scheduled Continue Trigger Point Injections, patient already has future appointment scheduled. She declines further lidocaine infusions F/U in 1 month documented in this encounter [facility] 02-23-2022 History of Presen t illness Narrative This video visit was performed via [employer] video visit. Patient consented to receive health care services via virtual visit for this encounter Provider Location: Non[facility] Patient Location: Patient Home or Place of Residence Risks, benefits, and limitations of receiving care virtually were discussed with the patient. The patient expressed understanding and is willing to proceed. Chief Complaint: Pain ___ History of Present Illness: Capri Aguilar is a 46 year old year old female being seen at [facility] for a evaluation and/or management of her chronic pain. The patient was last seen virtually on 01/02/2022. She states that since the last visit symptoms have been stable. She continues to report benefit from the botox and TPI's. The patient reports having no migraines since her last Botox injection done on 01/17/22. She saw her family service assistant and was prescribed Provigil. Otherwise, her medical [...] Acute gastritis without mention of hemorrhage CHARCOT Zgnqzux-Rgnbx-tjzep disease, deafness, and intellectual disability syndrome Eczema [...] Encounter Diagnosis ICD-10-CM 1. Fibromyalgia M79.7 2. 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 Z79.891 3. [...] Demian Forman APRN.CNP documented in this encounter [facility] 02-23-2022 Instructions Demian Forman APRN.CNP - 02/23/2022 1:22 PM EDT Continue OxyIR liquid Continue Botox q12 weeks, patient already has future appointment scheduled Continue Trigger Point Injections, patient already has future appointment scheduled. She declines further lidocaine infusions F/U in 1 month documented in this encounter [facility] 01-30-2022 Instructions Morteza Meza DO - 01/30/2022 3:22 PM EDT Continue OxyIR liquid 2. Continue Botox q12 weeks, patient already has future appointment scheduled 3. Continue Trigger Point Injections, patient already has future appointment scheduled. Discussed changing to 0.5% Marcaine for next trigger point injection. 4. She declines further lidocaine infusions 5. F/U in 1 month(s) with TON CONTAINER SHIPPER 6. 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 Chronic pain is [...] Morteza Meza DO documented in this encounter [facility] 01-02-2022 Instructions Demian Forman APRN.CNP - 01/02/2022 4:06 PM EDT Continue OxyIR Continue Botox q12 weeks- next injection 01/17/2022 Continue Trigger Point Injections She declines further lidocaine infusions F/U in 1 month(s). documented in this encounter [facility] 01-02-2022 History of Presen t illness Narrative This visit was conducted as a virtual visit. Provider Location: Non-[facility] Patient Location: Patient Home or Place of Residence Chief Complaint: Pain ___ History of Present Illness: Capri Aguilar is a 46 year old year old female being seen at [facility] for a evaluation [...] Acute gastritis without mention of hemorrhage CHARCOT Naiioxl-Wudsf-xgdqv disease, deafness, and intellectual disability syndrome Eczema [...] M79.7 3. Myofascial pain syndrome M79.18 4. 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 Z79.891 5. [...] infusions F/U in 1 month(s). Demian Forman APRN.VISHAL documented in this encounter [facility] 12-13-2021 Miscellaneous Notes Summary: TRIGGER POINT INJECTIONS [...] to approved criteria documented in this encounter [facility] 12-08-2021 History of Presen t illness Narrative Summary: Follow Up- Virtual Visit This visit was conducted as a virtual visit. DATE: December 08, 2021 Chief Complaint: Generalized Pain, Migraines ___ History of Present Illness: Capri Aguilar is a 46 year old year old female being seen at [facility] for a evaluation [...] Acute gastritis without mention of hemorrhage CHARCOT Zfsclso-Eqfch-fvxlm disease, deafness, and intellectual disability syndrome Eczema [...] (FLONASE) 50 mcg/actuation nasal spray Use 1 [place] in each nostril once daily. megestrol (MEGACE) [...] activity was identified. 12/08/2021 by Rashida Lange APRN.BROILER SUPERVISOR PLAN: The patient understands the goal of [...] Do not start before December 20, 2021. DARRICK Class: C-II IDALMIS: No F/U in 1 month(s). *January follow up is 01/30/[address] Meza* Rashida Lange APRN.BROILER SUPERVISOR documented in this encounter [facility] 08-09-2008 History of Past i llness Narrative Problem Noted Date Resolved Date Other chronic [...] of this encounter (statuses as of 09/21/2021) [facility] History of Past illness Narrative* Problem Noted [...] of this encounter (statuses as of 10/12/2021) [facility] History of Past illness Narrative* Problem Noted [...] of this encounter (statuses as of 10/19/2021) [facility] History of Past illness Narrative* Problem Noted [...] of this encounter (statuses as of 11/16/2021) [facility] History of Past illness Narrative* Problem Noted [...] of this encounter (statuses as of 11/22/2021) [facility] History of Past illness Narrative* Problem Noted [...] of this encounter (statuses as of 12/08/2021) [facility] History of Past illness Narrative* Problem Noted [...] of this encounter (statuses as of 12/14/2021) [facility] History of Past illness Narrative* Problem Noted [...] of this encounter (statuses as of 12/26/2021) [facility] History of Past illness Narrative* Problem Noted [...] of this encounter (statuses as of 01/02/2022) [facility] History of Past illness Narrative* Problem Noted [...] of this encounter (statuses as of 01/31/2022) [facility] History of Past illness Narrative* Problem Noted [...] of this encounter (statuses as of 02/23/2022) [facility] History of Past illness Narrative* Problem Noted [...] of this encounter (statuses as of 04/20/2022) [facility] History of Past illness Narrative* Problem Noted [...] of this encounter (statuses as of 04/25/2022) [facility] History of Past illness Narrative* Problem Noted [...] of this encounter (statuses as of 04/26/2022) [facility] History of Past illness Narrative* Problem Noted [...] of this encounter (statuses as of 05/07/2022) [facility] History of Past illness Narrative* Problem Noted [...] of this encounter (statuses as of 06/12/2022) [facility] History of Past illness Narrative* Problem Noted [...] of this encounter (statuses as of 07/03/2022) [facility] History of Past illness Narrative* Problem Noted [...] of this encounter (statuses as of 07/10/2022) [facility] History of Past illness Narrative* Problem Noted [...] of this encounter (statuses as of 07/26/2022) [facility] History of Past illness Narrative* Problem Noted [...] of this encounter (statuses as of 08/02/2022) [facility] History of Past illness Narrative* Problem Noted [...] of this encounter (statuses as of 08/21/2022) [facility] of Past illness Narrative* Problem Noted [...] of this encounter (statuses as of 08/24/2022) [facility] of Past illness Narrative* Problem Noted [...] of this encounter (statuses as of 09/13/2022) [facility] of Past illness Narrative* Problem Noted [...] of this encounter (statuses as of 10/11/2022) [facility] of Past illness Narrative* Problem Noted [...] of this encounter (statuses as of 10/17/2022) [facility] of Past illness Narrative* Problem Noted [...] of this encounter (statuses as of 10/19/2022) [facility] History of Past illness Narrative* Problem Noted [...] of this encounter (statuses as of 11/06/2022) [facility] of Past illness Narrative* Problem Noted [...] of this encounter (statuses as of 11/28/2022) [facility] History of Past illness Narrative* Problem Noted [...] of this encounter (statuses as of 12/18/2022) [facility] of Past illness Narrative* Problem Noted [...] of this encounter (statuses as of 12/20/2022) [facility] History of Past illness Narrative* Problem Noted [...] of this encounter (statuses as of 01/24/2023) [facility] of Past illness Narrative* Problem Noted [...] of this encounter (statuses as of 01/31/2023) [facility] of Past illness Narrative* Problem Noted [...] of this encounter (statuses as of 02/01/2023) [facility] Past illness Narrative* Problem Noted [...] of this encounter (statuses as of 02/22/2023) [facility] of Past illness Narrative* Problem Noted [...] of this encounter (statuses as of 02/22/2023) [facility] of Past illness Narrative* Problem Noted [...] of this encounter (statuses as of 02/22/2023) [facility] of Past illness Narrative* Problem Noted [...] of this encounter (statuses as of 02/23/2023) [facility] of Past illness Narrative* Problem Noted [...] of this encounter (statuses as of 02/26/2023) [facility] of Past illness Narrative* Problem Noted [...] of this encounter (statuses as of 02/28/2023) [facility] Narrative* Problem Noted [...] of this encounter (statuses as of 03/20/2023) [facility] illness Narrative* Problem Noted [...] of this encounter (statuses as of 03/25/2023) [facility] of Past illness Narrative* Problem Noted [...] of this encounter (statuses as of 03/27/2023) [facility] illness Narrative* Problem Noted [...] of this encounter (statuses as of 04/23/2023) [facility] of Past illness Narrative* Problem Noted [...] of this encounter (statuses as of 05/06/2023) [facility] of Past illness Narrative* Problem Noted [...] of this encounter (statuses as of 07/25/2023) [facility] of Past illness Narrative* Problem Noted [...] of this encounter (statuses as of 08/07/2023) [facility] Narrative* Problem Noted [...] as of this encounter (statuses as of 08/30/2023) [facility] Narrative* Problem Noted [...] as of this encounter (statuses as of 09/02/2023) [facility] illness Narrative* Problem Noted [...] as of this encounter (statuses as of 09/03/2023) [facility] Past illness Narrative* Problem Noted [...] as of this encounter (statuses as of 09/04/2023) [facility] Narrative* Problem Noted [...] as of this encounter (statuses as of 09/20/2023) [facility] Mohit Henley [facility] August 12, 2023 9:49am Note Date/Time August 12, 2023 9:49 am [facility] Medical Records Department [address] [place] [address] Discharge Summary 08/12/23 0948 MR#: [id number] Acct: [id number] Name: CAPRI AGUILAR Rep #:[id number] : 1975 47 From: Mohit Henley MD PCP: Dr. Luisa Pemberton MD Status:[facility] Location: [place] [address] Providers Primary Care Physician: Dr. Luisa Pemberton MD Reason For Visit: Myringotomy,Tubes/ T- TUBES Medications at Discharge Home Medications ipratropium bromide 42 mcg (0.06 %) nasal spray 2 spray intranasal PRN PRN allergy symptoms 07/31/23 megestrol 400 mg/10 mL (40 mg/mL) oral suspension 80 mg PO DAILY 07/31/23 montelukast 10 mg tablet (Singulair) 10 mg PO QHS 07/31/23 multivitamin (Daily Multi-Vitamin tablet) 1 tab PO DAILY 07/31/23 ondansetron 8 mg disintegrating tablet 8 mg PO BID 07/31/23 oxycodone 20 mg/mL oral concentrate 20 mg PO Q4H 07/31/23 Weight / BMI Weight Weight: 49.1 kg Body Mass Index (BMI) 16.9 ABG / Lab / Microbiology Data 08/08/23 13:36 08/08/23 13:36 D/C Instructions Discharge Diet: No restrictions Discharge Activity: Return to Normal Activity Additional Instructions: Ear drops....5 drops each ear twice a day for 2 days (3 doses) Please Follow Up With: Mohit Henley MD When: 2-3 weeks Meaningful Use Info Meaningful Use Diagnoses (Choose all that apply): None applicable Discharge Plan Admission Attending Provider: Mohit Henley Primary Care Provider: Luisa Pemberton Discharge Orders/Prescriptions Prescriptions: No Action oxycodone 20 mg/mL concentrate 20 mg PO Q4H Patient Comments: TAKE 0.5-1 ML BY MOUTH EVERY 4 HOURS ondansetron 8 mg tablet,disintegrating 8 mg PO BID megestrol 400 mg/10 mL (40 mg/mL) suspension 80 mg PO DAILY Patient Comments: TAKE 2 MILLILITERS BY MOUTH TWICE A DAY montelukast [Singulair] 10 mg tablet 10 mg PO QHS Patient Comments: Take 1 tablet oral once a day multivitamin [Daily Multi-Vitamin] Tablet 1 tab PO DAILY ipratropium bromide 42 mcg (0.06 %) spray,non-aerosol 2 spray INTRANASAL PRN PRN (Reason: allergy symptoms) Patient Comments: SPRAY 2 SPRAYS INTO EACH NOSTRIL TWICE A DAY Referrals / Follow Up: Luisa Pemberton MD [Primary Care Provider] - Disposition Disposition (needs filled in before D/C Order can be placed): Home, Self Care 08/12/23 0949 <Electronically signed by Mohit Henley MD> Cosigner Signature (if applicable): CC: Dr. Luisa Pemberton MD; Dr. 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 Myofascial [...] and myositis, unspecified [facility] Diagnosis Myofascial pain syndrome Mylagia and [...] and myositis, unspecified [facility] Diagnosis Chronic pain syndrome- Primary Migraine variant Variants of migraine, not elsewhere classified, without mention of intractable migraine without mention of status migrainosus Fibromyalgia Mylagia and myositis, unspecified Myofascial pain syndrome Mylagia and myositis, unspecified 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 Intractable chronic [...] and myositis, unspecified [facility] Diagnosis Bksfrgl-Zjfbk-Dzmax syndrome- Primary Peroneal muscular atrophy POTS (postural orthostatic tachycardia syndrome) Tachycardia, unspecified Myofascial pain syndrome Mylagia and myositis, unspecified Myofascial pain syndrome Mylagia and myositis, unspecified Intractable chronic migraine without aura and without status migrainosus Chronic migraine without aura, with intractable migraine, so stated, without mention of status migrainosus Myofascial pain syndrome Mylagia and myositis, unspecified [facility] Diagnosis Fibromyalgia- Primary Mylagia and myositis, unspecified 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 Chronic pain syndrome 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 Chronic migraine without aura, with intractable migraine, so stated, with status migrainosus Intractable chronic migraine without aura and without status migrainosus Chronic migraine without aura, with intractable migraine, so stated, without mention of status migrainosus Myofascial pain syndrome Mylagia and myositis, unspecified [facility] Diagnosis Fibromyalgia- Primary Mylagia and myositis, unspecified 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 Chronic pain syndrome 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 Chronic migraine without aura, with intractable migraine, so stated, with status migrainosus Myofascial pain syndrome Mylagia and myositis, [facility] Diagnosis Myofascial pain syndrome- Primary Mylagia and myositis, unspecified [facility] Diagnosis Migraine without aura and with status migrainosus, not intractable- Primary Migraine without aura, without mention of intractable migraine with status migrainosus Migraine without aura, intractable, without status migrainosus documented [facility] this [facility] Diagnosis Other chronic pain- Primary 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 Fibromyalgia Mylagia [...] without status migrainosus [facility] Diagnosis Chronic pain syndrome Myofascial pain syndrome Mylagia and myositis, unspecified Migraine without aura and with status migrainosus, not intractable Migraine without aura, without mention of intractable migraine with status migrainosus Migraine without aura, intractable, without status migrainosus [facility] Other chronic pain- Primary 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 Fibromyalgia Mylagia [...] without status migrainosus [facility] Diagnosis 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- Primary Chronic migraine without aura, with intractable migraine, so stated, with status migrainosus Migraine without aura and with status migrainosus, not intractable Migraine without aura, without mention of intractable migraine with status migrainosus Migraine without aura, intractable, without status migrainosus [facility]* Diagnosis Myofascial pain syndrome- Primary Mylagia and myositis, unspecified Myofascial pain syndrome Mylagia and myositis, unspecified Myofascial pain syndrome Mylagia and myositis, unspecified 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 Chronic migraine without aura, with intractable migraine, so stated, with status migrainosus [facility] Other chronic pain- Primary 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 Fibromyalgia Mylagia [...] [facility]* Diagnosis Other chronic pain- Primary 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 Fibromyalgia Mylagia [...] with status migrainosus [facility] Diagnosis Other chronic pain- Primary 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 Fibromyalgia Mylagia [...] [facility] Diagnosis Intractable chronic migraine without [...] [facility] Diagnosis Intractable chronic migraine without [...] with status migrainosus [facility] Diagnosis 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- Primary Chronic [...] with status migrainosus [facility] Diagnosis Other chronic pain- Primary Fibromyalgia Mylagia and myositis, unspecified 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 Chronic migraine without aura, with intractable migraine, so stated, with status migrainosus Chiquis-Danlos syndrome Migraine variant Variants of migraine, not elsewhere classified, without mention of intractable migraine without mention of status migrainosus 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 Chronic pain [...] with status migrainosus [facility] Diagnosis Other chronic pain- Primary Fibromyalgia Mylagia and myositis, unspecified 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 Chronic migraine without aura, with intractable migraine, so stated, with status migrainosus Chiquis-Danlos syndrome 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 Chronic pain [...] with status migrainosus [facility] Diagnosis Other chronic pain- Primary Fibromyalgia Mylagia and myositis, unspecified 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 Chronic migraine without aura, with intractable migraine, so stated, with status migrainosus Chiquis-Danlos syndrome 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 Chronic pain syndrome Migraine variant Variants of migraine, not elsewhere classified, without mention of intractable migraine without mention of status migrainosus 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 Chronic migraine without aura, with intractable migraine, so stated, with status migrainosus documented [facility] this [facility] Diagnosis Migraine without aura and with status migrainosus, not intractable- Primary Migraine without aura, without mention of intractable migraine with status migrainosus Migraine with aura, intractable, without status migrainosus Migraine without aura and with status migrainosus, not intractable Migraine without aura, without mention of intractable migraine with status migrainosus Migraine with aura, intractable, without status migrainosus documented in this [facility] Diagnosis Myofascial pain syndrome- Primary Mylagia and myositis, unspecified documented [facility] this [facility] Diagnosis Other chronic pain- Primary Fibromyalgia Mylagia and myositis, unspecified 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 Chronic migraine without aura, with intractable migraine, so stated, with status migrainosus Chiquis-Danlos syndrome Chronic pain syndrome Drctdhp-Ccyzj-Jimgo syndrome Peroneal muscular atrophy 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 Migraine variant Variants of migraine, not elsewhere classified, without mention of intractable migraine without mention of status migrainosus Myofascial pain syndrome Mylagia and myositis, unspecified POTS (postural orthostatic tachycardia syndrome) Tachycardia, unspecified Marfan's syndrome Uszhnwj-Wlmba-Dcpxr disease Peroneal muscular atrophy Myofascial pain syndrome Mylagia and myositis, unspecified [facility] Diagnosis Myofascial pain syndrome- Primary Mylagia and myositis, unspecified Myofascial pain syndrome Mylagia and myositis, unspecified documented in this [facility] Diagnosis Migraine without aura and with status migrainosus, not intractable- Primary Migraine without aura, without mention of intractable migraine with status migrainosus Chronic migraine without aura, intractable, without status migrainosus Myofascial pain syndrome Mylagia and myositis, unspecified [facility] Diagnosis Chronic pain syndrome- Primary 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 Chronic migraine without aura, with intractable migraine, so stated, with status migrainosus 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 Other chronic pain Chiquis-Danlos syndrome Marfan's syndrome POTS (postural orthostatic tachycardia syndrome) Tachycardia, unspecified Fibromyalgia Mylagia and myositis, unspecified Migraine variant Variants of migraine, not elsewhere classified, without mention of intractable migraine without mention of status migrainosus Myofascial pain syndrome Mylagia and myositis, unspecified Cgffnmw-Zpvcd-Qdvgq disease Peroneal muscular atrophy Sqqefgf-Peico-Dlawq syndrome Peroneal muscular atrophy Myofascial pain syndrome Mylagia and myositis, unspecified [facility] Diagnosis Chronic pain syndrome [facility] Diagnosis Chronic pain syndrome 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 Chronic migraine without aura, with intractable migraine, so stated, with status migrainosus Fibromyalgia Mylagia and myositis, unspecified Fibromyalgia Mylagia and myositis, unspecified documented in this [facility] noteNo assessment information availableWVeterans Health Administration Work Phone: Evaluation note* Diagnosis Chronic pain syndrome Fibromyalgia Mylagia and myositis, unspecified [facility]* Diagnosis Migraine without status migrainosus, not intractable, unspecified migraine type- Primary Migraine without status migrainosus, not intractable, unspecified migraine type documented in this [facility] Diagnosis Fibromyalgia- Primary Mylagia and myositis, unspecified 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 Chronic migraine without aura, with intractable migraine, so stated, with status migrainosus Chiquis-Danlos syndrome Lybbuoe-Mfemm-Elhau disease Peroneal muscular atrophy Chronic pain syndrome Myofascial pain syndrome Mylagia and myositis, unspecified Migraine without status migrainosus, not intractable, unspecified migraine type documented in this [facility] Diagnosis Chronic pain syndrome Migraine without status migrainosus, not intractable, unspecified migraine type documented in this [facility] Diagnosis Fibromyalgia- Primary Mylagia and myositis, unspecified 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 Chronic migraine without aura, with intractable migraine, so stated, with status migrainosus Chiquis-Danlos syndrome Iykeroe-Dyfcq-Aqizs disease Peroneal muscular atrophy Migraine without status migrainosus, not intractable, unspecified migraine type [facility] Diagnosis Migraine, unspecified, without mention of intractable migraine without mention of status migrainosus- Primary Fibromyalgia Mylagia and myositis, unspecified Fibromyalgia Mylagia and myositis, unspecified documented in this encounter [facility] note* Diagnosis Fibromyalgia- Primary Mylagia and myositis, unspecified Fibromyalgia Mylagia and myositis, unspecified Fibromyalgia Mylagia and myositis, unspecified documented in this encounter [facility] note* Diagnosis Migraine without aura and with status migrainosus, not intractable- Primary Migraine without aura, without mention of intractable migraine with status migrainosus Fibromyalgia Mylagia and myositis, unspecified Fibromyalgia Mylagia and myositis, unspecified Fibromyalgia Mylagia and myositis, unspecified documented in this encounter [facility] note* Diagnosis Chronic pain syndrome Fibromyalgia Mylagia and myositis, unspecified Fibromyalgia Mylagia and myositis, unspecified documented in this encounter [facility] note* Diagnosis Chronic pain syndrome- Primary Fibromyalgia Mylagia and myositis, unspecified Chiquis-Danlos syndrome Mobdawb-Yhlgi-Nosrf disease Peroneal muscular atrophy 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 Other chronic pain Fibromyalgia Mylagia and myositis, unspecified Fibromyalgia Mylagia and myositis, unspecified documented in this encounter [facility] note* Diagnosis Myofascial pain syndrome- Primary Mylagia and myositis, unspecified Fibromyalgia Mylagia and myositis, unspecified Myofascial pain syndrome Mylagia and myositis, unspecified Myofascial pain syndrome Mylagia and myositis, unspecified documented in this encounter [facility] note* Diagnosis Chronic pain syndrome Myofascial pain syndrome Mylagia and myositis, unspecified Myofascial pain syndrome Mylagia and myositis, unspecified [facility] Diagnosis 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- Primary Chronic migraine without aura, with intractable migraine, so stated, with status migrainosus Migraine without aura and without status migrainosus, not intractable Migraine without aura, without mention of intractable migraine without mention of status migrainosus Migraine, unspecified, without mention of intractable migraine without mention of status migrainosus 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 Chronic migraine without aura, with intractable migraine, so stated, with status migrainosus Migraine, unspecified, without mention of intractable migraine without mention of status migrainosus Myofascial pain syndrome Mylagia and myositis, unspecified Myofascial pain syndrome Mylagia and myositis, unspecified [facility] Diagnosis Chronic pain syndrome 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 Chronic migraine without aura, with intractable migraine, so stated, with status migrainosus Migraine, unspecified, without mention of intractable migraine without mention of status migrainosus Myofascial pain syndrome Mylagia and myositis, unspecified Myofascial pain syndrome Mylagia and myositis, unspecified [facility] Diagnosis 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- Primary Chronic migraine without aura, with intractable migraine, so stated, with status migrainosus Myofascial pain syndrome Mylagia and myositis, unspecified documented in this [facility] Diagnosis Myofascial pain syndrome- Primary Mylagia and myositis, unspecified Myofascial pain syndrome Mylagia and myositis, unspecified Myofascial pain syndrome Mylagia and myositis, unspecified documented in this [facility]* Diagnosis Fibromyalgia- Primary Mylagia and myositis, unspecified Chiquis-Danlos syndrome Zlrynye-Iysda-Wynhe disease 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 Chronic migraine without aura, with intractable migraine, so stated, with status migrainosus 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 Myofascial pain syndrome Mylagia and myositis, unspecified Myofascial pain syndrome Mylagia and myositis, unspecified documented in this encounter [facility] note* Diagnosis Burwyjy-Hidsz-Ivzii disease Peroneal muscular atrophy Myofascial pain syndrome Mylagia and myositis, unspecified Myofascial pain syndrome Mylagia and myositis, unspecified documented in this encounter [facility] note* Diagnosis Migraine, unspecified, without mention of intractable migraine without mention of status migrainosus- Primary Myofascial pain syndrome Mylagia and myositis, unspecified Migraine, unspecified, without mention of intractable migraine without mention of status migrainosus documented in this encounter [facility] note* Diagnosis Vtfdewe-Yuwvh-Mgnot disease Peroneal muscular atrophy Myofascial pain syndrome Mylagia and myositis, unspecified Migraine, unspecified, without mention of intractable migraine without mention of status migrainosus documented in this encounter [facility] note* Diagnosis Fibromyalgia- Primary Mylagia and myositis, unspecified Myofascial pain syndrome Mylagia and myositis, unspecified Migraine, unspecified, without mention of intractable migraine without mention of status migrainosus [facility] Diagnosis Ybvxoyk-Jaijk-Wasci disease Peroneal muscular atrophy Migraine, unspecified, without mention of intractable migraine without mention of status migrainosus [facility] Diagnosis Zbehtmo-Cvlot-Tnsgu disease- Primary Peroneal muscular atrophy Chiquis-Danlos syndrome Fibromyalgia Mylagia and myositis, unspecified 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 Chronic migraine without aura, with intractable migraine, so stated, with status migrainosus Myofascial pain syndrome Mylagia and myositis, unspecified Migraine, unspecified, without mention of intractable migraine without mention of status migrainosus Myofascial pain syndrome Mylagia and myositis, unspecified Myofascial pain syndrome Mylagia and myositis, unspecified documented in this encounter [facility] note* Diagnosis Xtorblf-Hifqu-Qukgo disease Peroneal muscular atrophy [facility] Diagnosis Myofascial pain syndrome- Primary Mylagia and myositis, unspecified Myofascial pain syndrome Mylagia and myositis, unspecified Myofascial pain syndrome Mylagia and myositis, unspecified [facility] Diagnosis Evtafhv-Gwzjy-Oyuif disease Peroneal muscular atrophy Migraine, unspecified, without mention of intractable migraine without mention of status migrainosus documented in this encounter [facility] note* Diagnosis Chiquis-Danlos syndrome (HCC)- Primary Chiquis-Danlos syndrome Zllnsgl-Jemfz-Xlkee disease Peroneal muscular atrophy Marfan's syndrome (HCC) Marfan's syndrome Migraine, unspecified, without mention of intractable migraine without mention of status migrainosus Fibromyalgia Mylagia and myositis, unspecified Myofascial pain syndrome Mylagia and myositis, unspecified 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 Migraine, unspecified, without mention of intractable migraine without mention of status migrainosus documented in this encounter [facility] note* Diagnosis Myofascial pain syndrome- Primary Mylagia and myositis, unspecified Fibromyalgia Mylagia and myositis, unspecified Myofascial pain syndrome Mylagia and myositis, unspecified Fibromyalgia Mylagia and myositis, unspecified Myofascial pain syndrome Mylagia and myositis, unspecified documented in this encounter [facility] note* Diagnosis Tpwfuce-Couwm-Ztjgn disease Peroneal muscular atrophy documented in this encounter [facility] note* Diagnosis Myofascial pain syndrome- Primary Mylagia and myositis, unspecified Fibromyalgia Mylagia and myositis, unspecified Migraine, unspecified, without mention of intractable migraine without mention of status migrainosus Migraine without aura and without status migrainosus, not intractable Migraine without aura, without mention of intractable migraine without mention of status migrainosus 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 Chronic migraine without aura, with intractable migraine, so stated, with status migrainosus Myofascial pain syndrome Mylagia and myositis, unspecified Fibromyalgia Mylagia and myositis, unspecified Myofascial pain syndrome Mylagia and myositis, unspecified Fibromyalgia Mylagia and myositis, unspecified 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 Chronic migraine without aura, with intractable migraine, so stated, with status migrainosus [facility] Diagnosis Asgvrsr-Ywhvp-Ehoqd disease Peroneal muscular atrophy Myofascial pain syndrome Mylagia and myositis, unspecified Fibromyalgia Mylagia and myositis, unspecified Myofascial pain syndrome Mylagia and myositis, unspecified Fibromyalgia Mylagia and myositis, unspecified 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 Chronic migraine without aura, with intractable migraine, so stated, with status migrainosus [facility] Diagnosis Cshnuhj-Ssyil-Zycst disease- Primary Peroneal muscular atrophy Chiquis-Danlos syndrome (HCC) Chiquis-Danlos syndrome Marfan's syndrome (HCC) Marfan's syndrome Myofascial pain syndrome Mylagia and myositis, unspecified Fibromyalgia Mylagia and myositis, unspecified Migraine, unspecified, without mention of intractable migraine without mention of status migrainosus [facility]* Diagnosis Wtvdxbh-Krqrp-Tixji disease Peroneal muscular atrophy documented in this encounter [facility] note* Diagnosis Myofascial pain syndrome- Primary Mylagia and myositis, unspecified documented in this encounter [facility] for visit Narrative* Auth/Cert (Routine) Specialty Diagnoses / Procedures Referred By Jero duenas Referred To Contact Diagnoses Migraine, unspecified, without mention of intractable migraine without mention of status migrainosus Migraine, unspecified, without mention of intractable migraine without mention of status migrainosus [G43.909] Procedures CHEMODERVATE FACIAL/TRIGEM/CERV MUSC MIGRAINE CHEMODENERVATION OF MUSCLE(S) INNERVATED BY FACIAL, TRIGEMINAL, CERVICAL SPINAL AND ACCESSORY NERVES, BILATERAL PAIN KANG PROCEDURES [address] [place] [address] Phone: tel: fax: Referral ID Status Reason Start Date Expiration Date Visits Re quested Visits Authorized [id number] 1 1 [facility] for visit Narrative* Auth/Cert (Routine) Specialty Diagnoses / Procedures Referred By Jero duenas Referred To Contact Diagnoses 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 [G43.711] Procedures CHEMODERVATE FACIAL/TRIGEM/CERV MUSC MIGRAINE CHEMODENERVATION OF MUSCLE(S) INNERVATED BY FACIAL, TRIGEMINAL, CERVICAL SPINAL AND ACCESSORY NERVES, BILATERAL PAIN KANG PROCEDURES [address] [place] [address] Phone: tel: fax: Referral ID Status Reason Start Date Expiration Date Visits Re quested Visits Authorized [id number] 1 1 [facility] Summary Purpose Family History No Family History Records FoundNo Family History Records FoundNo Family History Records FoundNo Family History Records FoundNo Family History Records Found Advance Directives No Advanced Directives Records FoundDocuments on File Type Date Recorded Patient Tram Operator Expl anation Advance Directive(s) 11/28/2021 2:32 PM Documents on File Type Date Recorded Patient Tram Operator Expl anation Advance Directive(s) 12/25/2021 2:26 PM Advance Directive(s) 11/28/2021 2:32 PM Advance Directive Response Recorded Date/ Time Living Will Yes July 31, 2 024 1:00pm Power of Steam Conditioning Operator Yes July 31, 2023 1:00pm Name of Medical Power of Steam Conditioning Operator MOTHER July 31, 2023 1:00pm Chief Complaint and Reason for Visit Chief Complaint Myringotomy,Tubes/ T - TUBES Additional Source Comments INFORMATION SOURCE (unrecogn ized section and content) DATE CREATED AUTHOR 10/24/2019 [facility] ntgeneva Christiana DATE CREATED AUTHOR AUTHOR'S ORGANIZ ATION 02/24/2024 [facility] DATE CREATED AUTHOR AUTHOR'S ORGANIZ ATION 03/12/2024 [facility] DATE CREATED AUTHOR AUTHOR'S ORGANIZ ATION 08/08/2024 [facility] DATE CREATED AUTHOR AUTHOR'S ORGANIZ ATION 02/27/2025 [facility] Ce ntgeneva Source Comments (unrecognize d section and content) In the event this informatio n is protected by the Federal Confidentiality of Alcohol and Drug Abuse Patient Records regulations: The Federal rules restrict any use of the information to criminally investigate or prosecute any alcohol or drug abuse patient.[facility] the event this information is protected by the Federal Confidentiality of Alcohol and Drug Abuse Patient Records regulations: The Federal rules restrict any use of the information to criminally investigate or prosecute any alcohol or drug abuse patient.[facility]In the event this information is protected by the Federal Confidentiality of Alcohol and Drug Abuse Patient Records regulations: The Federal rules restrict any use of the information to criminally investigate or prosecute any alcohol or drug abuse patient.[facility] HospitalIn the event this information is protected by the Federal Confidentiality of Alcohol and Drug Abuse Patient Records regulations: The Federal rules restrict any use of the information to criminally investigate or prosecute any alcohol or drug abuse patient.[facility] HospitalIn the event this information is protected by the Federal Confidentiality of Alcohol and Drug Abuse Patient Records regulations: The Federal rules restrict any use of the information to criminally investigate or prosecute any alcohol or drug abuse patient.[facility] HospitalIn the event this information is protected by the Federal Confidentiality of Alcohol and Drug Abuse Patient Records regulations: The Federal rules restrict any use of the information to criminally investigate or prosecute any alcohol or drug abuse patient.[facility] HospitalIn the event this information is protected by the Federal Confidentiality of Alcohol and Drug Abuse Patient Records regulations: The Federal rules restrict any use of the information to criminally investigate or prosecute any alcohol or drug abuse patient.[facility] HospitalIn the event this information is protected by the Federal Confidentiality of Alcohol and Drug Abuse Patient Records regulations: The Federal rules restrict any use of the information to criminally investigate or prosecute any alcohol or drug abuse patient.[facility] HospitalIn the event this information is protected by the Federal Confidentiality of Alcohol and Drug Abuse Patient Records regulations: The Federal rules restrict any use of the information to criminally investigate or prosecute any alcohol or drug abuse patient.[facility] HospitalIn the event this information is protected by the Federal Confidentiality of Alcohol and Drug Abuse Patient Records regulations: The Federal rules restrict any use of the information to criminally investigate or prosecute any alcohol or drug abuse patient.[facility] HospitalIn the event this information is protected by the Federal Confidentiality of Alcohol and Drug Abuse Patient Records regulations: The Federal rules restrict any use of the information to criminally investigate or prosecute any alcohol or drug abuse patient.[facility] HospitalIn the event this information is protected by the Federal Confidentiality of Alcohol and Drug Abuse Patient Records regulations: The Federal rules restrict any use of the information to criminally investigate or prosecute any alcohol or drug abuse patient.[facility] HospitalIn the event this information is protected by the Federal Confidentiality of Alcohol and Drug Abuse Patient Records regulations: The Federal rules restrict any use of the information to criminally investigate or prosecute any alcohol or drug abuse patient.[facility] HospitalIn the event this information is protected by the Federal Confidentiality of Alcohol and Drug Abuse Patient Records regulations: The Federal rules restrict any use of the information to criminally investigate or prosecute any alcohol or drug abuse patient.[facility] HospitalIn the event this information is protected by the Federal Confidentiality of Alcohol and Drug Abuse Patient Records regulations: The Federal rules restrict any use of the information to criminally investigate or prosecute any alcohol or drug abuse patient.[facility] HospitalIn the event this information is protected by the Federal Confidentiality of Alcohol and Drug Abuse Patient Records regulations: The Federal rules restrict any use of the information to criminally investigate or prosecute any alcohol or drug abuse patient.[facility] the event this information is protected by the Federal Confidentiality of Alcohol and Drug Abuse Patient Records regulations: The Federal rules restrict any use of the information to criminally investigate or prosecute any alcohol or drug abuse patient.[facility] HospitalIn the event this information is protected by the Federal Confidentiality of Alcohol and Drug Abuse Patient Records regulations: The Federal rules restrict any use of the information to criminally investigate or prosecute any alcohol or drug abuse patient.[facility] HospitalIn the event this information is protected by the Federal Confidentiality of Alcohol and Drug Abuse Patient Records regulations: The Federal rules restrict any use of the information to criminally investigate or prosecute any alcohol or drug abuse patient.[facility] HospitalIn the event this information is protected by the Federal Confidentiality of Alcohol and Drug Abuse Patient Records regulations: The Federal rules restrict any use of the information to criminally investigate or prosecute any alcohol or drug abuse patient.[facility] HospitalIn the event this information is protected by the Federal Confidentiality of Alcohol and Drug Abuse Patient Records regulations: The Federal rules restrict any use of the information to criminally investigate or prosecute any alcohol or drug abuse patient.[facility] HospitalIn the event this information is protected by the Federal Confidentiality of Alcohol and Drug Abuse Patient Records regulations: The Federal rules restrict any use of the information to criminally investigate or prosecute any alcohol or drug abuse patient.[facility] HospitalIn the event this information is protected by the Federal Confidentiality of Alcohol and Drug Abuse Patient Records regulations: The Federal rules restrict any use of the information to criminally investigate or prosecute any alcohol or drug abuse patient.[facility] HospitalIn the event this information is protected by the Federal Confidentiality of Alcohol and Drug Abuse Patient Records regulations: The Federal rules restrict any use of the information to criminally investigate or prosecute any alcohol or drug abuse patient.[facility] HospitalIn the event this information is protected by the Federal Confidentiality of Alcohol and Drug Abuse Patient Records regulations: The Federal rules restrict any use of the information to criminally investigate or prosecute any alcohol or drug abuse patient.[facility] HospitalIn the event this information is protected by the Federal Confidentiality of Alcohol and Drug Abuse Patient Records regulations: The Federal rules restrict any use of the information to criminally investigate or prosecute any alcohol or drug abuse patient.[facility] HospitalIn the event this information is protected by the Federal Confidentiality of Alcohol and Drug Abuse Patient Records regulations: The Federal rules restrict any use of the information to criminally investigate or prosecute any alcohol or drug abuse patient.[facility] HospitalIn the event this information is protected by the Federal Confidentiality of Alcohol and Drug Abuse Patient Records regulations: The Federal rules restrict any use of the information to criminally investigate or prosecute any alcohol or drug abuse patient.[facility] HospitalIn the event this information is protected by the Federal Confidentiality of Alcohol and Drug Abuse Patient Records regulations: The Federal rules restrict any use of the information to criminally investigate or prosecute any alcohol or drug abuse patient.[facility] HospitalIn the event this information is protected by the Federal Confidentiality of Alcohol and Drug Abuse Patient Records regulations: The Federal rules restrict any use of the information to criminally investigate or prosecute any alcohol or drug abuse patient.[facility] HospitalIn the event this information is protected by the Federal Confidentiality of Alcohol and Drug Abuse Patient Records regulations: The Federal rules restrict any use of the information to criminally investigate or prosecute any alcohol or drug abuse patient.[facility] HospitalIn the event this information is protected by the Federal Confidentiality of Alcohol and Drug Abuse Patient Records regulations: The Federal rules restrict any use of the information to criminally investigate or prosecute any alcohol or drug abuse patient.[facility] HospitalIn the event this information is protected by the Federal Confidentiality of Alcohol and Drug Abuse Patient Records regulations: The Federal rules restrict any use of the information to criminally investigate or prosecute any alcohol or drug abuse patient.[facility] HospitalIn the event this information is protected by the Federal Confidentiality of Alcohol and Drug Abuse Patient Records regulations: The Federal rules restrict any use of the information to criminally investigate or prosecute any alcohol or drug abuse patient.[facility] HospitalIn the event this information is protected by the Federal Confidentiality of Alcohol and Drug Abuse Patient Records regulations: The Federal rules restrict any use of the information to criminally investigate or prosecute any alcohol or drug abuse patient.[facility] HospitalIn the event this information is protected by the Federal Confidentiality of Alcohol and Drug Abuse Patient Records regulations: The Federal rules restrict any use of the information to criminally investigate or prosecute any alcohol or drug abuse patient.[facility] HospitalIn the event this information is protected by the Federal Confidentiality of Alcohol and Drug Abuse Patient Records regulations: The Federal rules restrict any use of the information to criminally investigate or prosecute any alcohol or drug abuse patient.[facility] HospitalIn the event this information is protected by the Federal Confidentiality of Alcohol and Drug Abuse Patient Records regulations: The Federal rules restrict any use of the information to criminally investigate or prosecute any alcohol or drug abuse patient.[facility] HospitalIn the event this information is protected by the Federal Confidentiality of Alcohol and Drug Abuse Patient Records regulations: The Federal rules restrict any use of the information to criminally investigate or prosecute any alcohol or drug abuse patient.[facility] HospitalIn the event this information is protected by the Federal Confidentiality of Alcohol and Drug Abuse Patient Records regulations: The Federal rules restrict any use of the information to criminally investigate or prosecute any alcohol or drug abuse patient.[facility] HospitalIn the event this information is protected by the Federal Confidentiality of Alcohol and Drug Abuse Patient Records regulations: The Federal rules restrict any use of the information to criminally investigate or prosecute any alcohol or drug abuse patient.[facility] HospitalIn the event this information is protected by the Federal Confidentiality of Alcohol and Drug Abuse Patient Records regulations: The Federal rules restrict any use of the information to criminally investigate or prosecute any alcohol or drug abuse patient.[facility] HospitalIn the event this information is protected by the Federal Confidentiality of Alcohol and Drug Abuse Patient Records regulations: The Federal rules restrict any use of the information to criminally investigate or prosecute any alcohol or drug abuse patient.[facility] HospitalIn the event this information is protected by the Federal Confidentiality of Alcohol and Drug Abuse Patient Records regulations: The Federal rules restrict any use of the information to criminally investigate or prosecute any alcohol or drug abuse patient.[facility] HospitalIn the event this information is protected by the Federal Confidentiality of Alcohol and Drug Abuse Patient Records regulations: The Federal rules restrict any use of the information to criminally investigate or prosecute any alcohol or drug abuse patient.[facility] HospitalIn the event this information is protected by the Federal Confidentiality of Alcohol and Drug Abuse Patient Records regulations: The Federal rules restrict any use of the information to criminally investigate or prosecute any alcohol or drug abuse patient.[facility] HospitalIn the event this information is protected by the Federal Confidentiality of Alcohol and Drug Abuse Patient Records regulations: The Federal rules restrict any use of the information to criminally investigate or prosecute any alcohol or drug abuse patient.[facility] HospitalIn the event this information is protected by the Federal Confidentiality of Alcohol and Drug Abuse Patient Records regulations: The Federal rules restrict any use of the information to criminally investigate or prosecute any alcohol or drug abuse patient.[facility] HospitalIn the event this information is protected by the Federal Confidentiality of Alcohol and Drug Abuse Patient Records regulations: The Federal rules restrict any use of the information to criminally investigate or prosecute any alcohol or drug abuse patient.[facility] HospitalIn the event this information is protected by the Federal Confidentiality of Alcohol and Drug Abuse Patient Records regulations: The Federal rules restrict any use of the information to criminally investigate or prosecute any alcohol or drug abuse patient.[facility] HospitalIn the event this information is protected by the Federal Confidentiality of Alcohol and Drug Abuse Patient Records regulations: The Federal rules restrict any use of the information to criminally investigate or prosecute any alcohol or drug abuse patient.[facility] HospitalIn the event this information is protected by the Federal Confidentiality of Alcohol and Drug Abuse Patient Records regulations: The Federal rules restrict any use of the information to criminally investigate or prosecute any alcohol or drug abuse patient.[facility] HospitalIn the event this information is protected by the Federal Confidentiality of Alcohol and Drug Abuse Patient Records regulations: The Federal rules restrict any use of the information to criminally investigate or prosecute any alcohol or drug abuse patient.[facility] HospitalIn the event this information is protected by the Federal Confidentiality of Alcohol and Drug Abuse Patient Records regulations: The Federal rules restrict any use of the information to criminally investigate or prosecute any alcohol or drug abuse patient.[facility] HospitalIn the event this information is protected by the Federal Confidentiality of Alcohol and Drug Abuse Patient Records regulations: The Federal rules restrict any use of the information to criminally investigate or prosecute any alcohol or drug abuse patient.[facility] HospitalIn the event this information is protected by the Federal Confidentiality of Alcohol and Drug Abuse Patient Records regulations: The Federal rules restrict any use of the information to criminally investigate or prosecute any alcohol or drug abuse patient.[facility] HospitalIn the event this information is protected by the Federal Confidentiality of Alcohol and Drug Abuse Patient Records regulations: The Federal rules restrict any use of the information to criminally investigate or prosecute any alcohol or drug abuse patient.[facility] HospitalIn the event this information is protected by the Federal Confidentiality of Alcohol and Drug Abuse Patient Records regulations: The Federal rules restrict any use of the information to criminally investigate or prosecute any alcohol or drug abuse patient.[facility] HospitalIn the event this information is protected by the Federal Confidentiality of Alcohol and Drug Abuse Patient Records regulations: The Federal rules restrict any use of the information to criminally investigate or prosecute any alcohol or drug abuse patient.[facility] HospitalIn the event this information is protected by the Federal Confidentiality of Alcohol and Drug Abuse Patient Records regulations: The Federal rules restrict any use of the information to criminally investigate or prosecute any alcohol or drug abuse patient.[facility] HospitalIn the event this information is protected by the Federal Confidentiality of Alcohol and Drug Abuse Patient Records regulations: The Federal rules restrict any use of the information to criminally investigate or prosecute any alcohol or drug abuse patient.[facility] HospitalIn the event this information is protected by the Federal Confidentiality of Alcohol and Drug Abuse Patient Records regulations: The Federal rules restrict any use of the information to criminally investigate or prosecute any alcohol or drug abuse patient.[facility] HospitalIn the event this information is protected by the Federal Confidentiality of Alcohol and Drug Abuse Patient Records regulations: The Federal rules restrict any use of the information to criminally investigate or prosecute any alcohol or drug abuse patient.[facility] HospitalIn the event this information is protected by the Federal Confidentiality of Alcohol and Drug Abuse Patient Records regulations: The Federal rules restrict any use of the information to criminally investigate or prosecute any alcohol or drug abuse patient.[facility] HospitalIn the event this information is protected by the Federal Confidentiality of Alcohol and Drug Abuse Patient Records regulations: The Federal rules restrict any use of the information to criminally investigate or prosecute any alcohol or drug abuse patient.[facility] HospitalIn the event this information is protected by the Federal Confidentiality of Alcohol and Drug Abuse Patient Records regulations: The Federal rules restrict any use of the information to criminally investigate or prosecute any alcohol or drug abuse patient.[facility]In the event this information is protected by the Federal Confidentiality of Alcohol and Drug Abuse Patient Records regulations: The Federal rules restrict any use of the information to criminally investigate or prosecute any alcohol or drug abuse patient.[facility] HospitalIn the event this information is protected by the Federal Confidentiality of Alcohol and Drug Abuse Patient Records regulations: The Federal rules restrict any use of the information to criminally investigate or prosecute any alcohol or drug abuse patient.[facility] HospitalIn the event this information is protected by the Federal Confidentiality of Alcohol and Drug Abuse Patient Records regulations: The Federal rules restrict any use of the information to criminally investigate or prosecute any alcohol or drug abuse patient.[facility] HospitalIn the event this information is protected by the Federal Confidentiality of Alcohol and Drug Abuse Patient Records regulations: The Federal rules restrict any use of the information to criminally investigate or prosecute any alcohol or drug abuse patient.[facility] HospitalIn the event this information is protected by the Federal Confidentiality of Alcohol and Drug Abuse Patient Records regulations: The Federal rules restrict any use of the information to criminally investigate or prosecute any alcohol or drug abuse patient.[facility] HospitalIn the event this information is protected by the Federal Confidentiality of Alcohol and Drug Abuse Patient Records regulations: The Federal rules restrict any use of the information to criminally investigate or prosecute any alcohol or drug abuse patient.[facility] HospitalIn the event this information is protected by the Federal Confidentiality of Alcohol and Drug Abuse Patient Records regulations: The Federal rules restrict any use of the information to criminally investigate or prosecute any alcohol or drug abuse patient.[facility] HospitalIn the event this information is protected by the Federal Confidentiality of Alcohol and Drug Abuse Patient Records regulations: The Federal rules restrict any use of the information to criminally investigate or prosecute any alcohol or drug abuse patient.[facility] HospitalIn the event this information is protected by the Federal Confidentiality of Alcohol and Drug Abuse Patient Records regulations: The Federal rules restrict any use of the information to criminally investigate or prosecute any alcohol or drug abuse patient.[facility] HospitalIn the event this information is protected by the Federal Confidentiality of Alcohol and Drug Abuse Patient Records regulations: The Federal rules restrict any use of the information to criminally investigate or prosecute any alcohol or drug abuse patient.[facility] HospitalIn the event this information is protected by the Federal Confidentiality of Alcohol and Drug Abuse Patient Records regulations: The Federal rules restrict any use of the information to criminally investigate or prosecute any alcohol or drug abuse patient.[facility] HospitalIn the event this information is protected by the Federal Confidentiality of Alcohol and Drug Abuse Patient Records regulations: The Federal rules restrict any use of the information to criminally investigate or prosecute any alcohol or drug abuse patient.[facility] HospitalIn the event this information is protected by the Federal Confidentiality of Alcohol and Drug Abuse Patient Records regulations: The Federal rules restrict any use of the information to criminally investigate or prosecute any alcohol or drug abuse patient.[facility] HospitalIn the event this information is protected by the Federal Confidentiality of Alcohol and Drug Abuse Patient Records regulations: The Federal rules restrict any use of the information to criminally investigate or prosecute any alcohol or drug abuse patient.[facility] HospitalIn the event this information is protected by the Federal Confidentiality of Alcohol and Drug Abuse Patient Records regulations: The Federal rules restrict any use of the information to criminally investigate or prosecute any alcohol or drug abuse patient.[facility] HospitalIn the event this information is protected by the Federal Confidentiality of Alcohol and Drug Abuse Patient Records regulations: The Federal rules restrict any use of the information to criminally investigate or prosecute any alcohol or drug abuse patient.[facility] HospitalIn the event this information is protected by the Federal Confidentiality of Alcohol and Drug Abuse Patient Records regulations: The Federal rules restrict any use of the information to criminally investigate or prosecute any alcohol or drug abuse patient.[facility] HospitalIn the event this information is protected by the Federal Confidentiality of Alcohol and Drug Abuse Patient Records regulations: The Federal rules restrict any use of the information to criminally investigate or prosecute any alcohol or drug abuse patient.[facility] HospitalIn the event this information is protected by the Federal Confidentiality of Alcohol and Drug Abuse Patient Records regulations: The Federal rules restrict any use of the information to criminally investigate or prosecute any alcohol or drug abuse patient.[facility] HospitalIn the event this information is protected by the Federal Confidentiality of Alcohol and Drug Abuse Patient Records regulations: The Federal rules restrict any use of the information to criminally investigate or prosecute any alcohol or drug abuse patient.[facility] HospitalIn the event this information is protected by the Federal Confidentiality of Alcohol and Drug Abuse Patient Records regulations: The Federal rules restrict any use of the information to criminally investigate or prosecute any alcohol or drug abuse patient.[facility] HospitalIn the event this information is protected by the Federal Confidentiality of Alcohol and Drug Abuse Patient Records regulations: The Federal rules restrict any use of the information to criminally investigate or prosecute any alcohol or drug abuse patient.[facility] HospitalIn the event this information is protected by the Federal Confidentiality of Alcohol and Drug Abuse Patient Records regulations: The Federal rules restrict any use of the information to criminally investigate or prosecute any alcohol or drug abuse patient.[facility] HospitalIn the event this information is protected by the Federal Confidentiality of Alcohol and Drug Abuse Patient Records regulations: The Federal rules restrict any use of the information to criminally investigate or prosecute any alcohol or drug abuse patient.[facility] HospitalIn the event this information is protected by the Federal Confidentiality of Alcohol and Drug Abuse Patient Records regulations: The Federal rules restrict any use of the information to criminally investigate or prosecute any alcohol or drug abuse patient.[facility] HospitalIn the event this information is protected by the Federal Confidentiality of Alcohol and Drug Abuse Patient Records regulations: The Federal rules restrict any use of the information to criminally investigate or prosecute any alcohol or drug abuse patient.[facility] HospitalIn the event this information is protected by the Federal Confidentiality of Alcohol and Drug Abuse Patient Records regulations: The Federal rules restrict any use of the information to criminally investigate or prosecute any alcohol or drug abuse patient.[facility] HospitalIn the event this information is protected by the Federal Confidentiality of Alcohol and Drug Abuse Patient Records regulations: The Federal rules restrict any use of the information to criminally investigate or prosecute any alcohol or drug abuse patient.[facility] HospitalIn the event this information is protected by the Federal Confidentiality of Alcohol and Drug Abuse Patient Records regulations: The Federal rules restrict any use of the information to criminally investigate or prosecute any alcohol or drug abuse patient.[facility] HospitalIn the event this information is protected by the Federal Confidentiality of Alcohol and Drug Abuse Patient Records regulations: The Federal rules restrict any use of the information to criminally investigate or prosecute any alcohol or drug abuse patient.[facility] HospitalIn the event this information is protected by the Federal Confidentiality of Alcohol and Drug Abuse Patient Records regulations: The Federal rules restrict any use of the information to criminally investigate or prosecute any alcohol or drug abuse patient.[facility] HospitalIn the event this information is protected by the Federal Confidentiality of Alcohol and Drug Abuse Patient Records regulations: The Federal rules restrict any use of the information to criminally investigate or prosecute any alcohol or drug abuse patient.[facility] HospitalIn the event this information is protected by the Federal Confidentiality of Alcohol and Drug Abuse Patient Records regulations: The Federal rules restrict any use of the information to criminally investigate or prosecute any alcohol or drug abuse patient.[facility] HospitalIn the event this information is protected by the Federal Confidentiality of Alcohol and Drug Abuse Patient Records regulations: The Federal rules restrict any use of the information to criminally investigate or prosecute any alcohol or drug abuse patient.[facility] HospitalIn the event this information is protected by the Federal Confidentiality of Alcohol and Drug Abuse Patient Records regulations: The Federal rules restrict any use of the information to criminally investigate or prosecute any alcohol or drug abuse patient.[facility] HospitalIn the event this information is protected by the Federal Confidentiality of Alcohol and Drug Abuse Patient Records regulations: The Federal rules restrict any use of the information to criminally investigate or prosecute any alcohol or drug abuse patient.[facility] HospitalIn the event this information is protected by the Federal Confidentiality of Alcohol and Drug Abuse Patient Records regulations: The Federal rules restrict any use of the information to criminally investigate or prosecute any alcohol or drug abuse patient.[facility] HospitalIn the event this information is protected by the Federal Confidentiality of Alcohol and Drug Abuse Patient Records regulations: The Federal rules restrict any use of the information to criminally investigate or prosecute any alcohol or drug abuse patient.[facility] HospitalIn the event this information is protected by the Federal Confidentiality of Alcohol and Drug Abuse Patient Records regulations: The Federal rules restrict any use of the information to criminally investigate or prosecute any alcohol or drug abuse patient.[facility] HospitalIn the event this information is protected by the Federal Confidentiality of Alcohol and Drug Abuse Patient Records regulations: The Federal rules restrict any use of the information to criminally investigate or prosecute any alcohol or drug abuse patient.[facility] HospitalIn the event this information is protected by the Federal Confidentiality of Alcohol and Drug Abuse Patient Records regulations: The Federal rules restrict any use of the information to criminally investigate or prosecute any alcohol or drug abuse patient.[facility] HospitalIn the event this information is protected by the Federal Confidentiality of Alcohol and Drug Abuse Patient Records regulations: The Federal rules restrict any use of the information to criminally investigate or prosecute any alcohol or drug abuse patient.[facility] HospitalIn the event this information is protected by the Federal Confidentiality of Alcohol and Drug Abuse Patient Records regulations: The Federal rules restrict any use of the information to criminally investigate or prosecute any alcohol or drug abuse patient.[facility] HospitalIn the event this information is protected by the Federal Confidentiality of Alcohol and Drug Abuse Patient Records regulations: The Federal rules restrict any use of the information to criminally investigate or prosecute any alcohol or drug abuse patient.[facility] HospitalIn the event this information is protected by the Federal Confidentiality of Alcohol and Drug Abuse Patient Records regulations: The Federal rules restrict any use of the information to criminally investigate or prosecute any alcohol or drug abuse patient.[facility] HospitalIn the event this information is protected by the Federal Confidentiality of Alcohol and Drug Abuse Patient Records regulations: The Federal rules restrict any use of the information to criminally investigate or prosecute any alcohol or drug abuse patient.[facility] HospitalIn the event this information is protected by the Federal Confidentiality of Alcohol and Drug Abuse Patient Records regulations: The Federal rules restrict any use of the information to criminally investigate or prosecute any alcohol or drug abuse patient.[facility] HospitalIn the event this information is protected by the Federal Confidentiality of Alcohol and Drug Abuse Patient Records regulations: The Federal rules restrict any use of the information to criminally investigate or prosecute any alcohol or drug abuse patient.[facility] HospitalIn the event this information is protected by the Federal Confidentiality of Alcohol and Drug Abuse Patient Records regulations: The Federal rules restrict any use of the information to criminally investigate or prosecute any alcohol or drug abuse patient.[facility] HospitalIn the event this information is protected by the Federal Confidentiality of Alcohol and Drug Abuse Patient Records regulations: The Federal rules restrict any use of the information to criminally investigate or prosecute any alcohol or drug abuse patient.[facility] the event this information is protected by the Federal Confidentiality of Alcohol and Drug Abuse Patient Records regulations: The Federal rules restrict any use of the information to criminally investigate or prosecute any alcohol or drug abuse patient.[facility] HospitalIn the event this information is protected by the Federal Confidentiality of Alcohol and Drug Abuse Patient Records regulations: The Federal rules restrict any use of the information to criminally investigate or prosecute any alcohol or drug abuse patient.[facility] HospitalIn the event this information is protected by the Federal Confidentiality of Alcohol and Drug Abuse Patient Records regulations: The Federal rules restrict any use of the information to criminally investigate or prosecute any alcohol or drug abuse patient.[facility] HospitalIn the event this information is protected by the Federal Confidentiality of Alcohol and Drug Abuse Patient Records regulations: The Federal rules restrict any use of the information to criminally investigate or prosecute any alcohol or drug abuse patient.[facility] HospitalIn the event this information is protected by the Federal Confidentiality of Alcohol and Drug Abuse Patient Records regulations: The Federal rules restrict any use of the information to criminally investigate or prosecute any alcohol or drug abuse patient.[facility] HospitalIn the event this information is protected by the Federal Confidentiality of Alcohol and Drug Abuse Patient Records regulations: The Federal rules restrict any use of the information to criminally investigate or prosecute any alcohol or drug abuse patient.[facility] Care Teams (unrecognized sec tion and content) Signal Helper Relationship Specialty Start Date End Date Luisa Pemberton [address] [facility] [address] [place] [address] PCP - General 06/29/02 Signal Helper Relationship Specialty Start Date End Date Luisa Pemberton [address] [facility] [address] [place] [address] PCP - General 06/29/02 Signal Helper Relationship Specialty Start Date End Date Luisa Pemberton [address] [facility] [address] [place] [address] PCP - General 06/29/02 Signal Helper Relationship Specialty Start Date End Date Luisa Pemberton [address] [facility] [address] [place] [address] PCP - General 06/29/02 Signal Helper Relationship Specialty Start Date End Date Luisa Pembertoner [address] [place] [address] PCP - General 06/29/02 Signal Helper Relationship Specialty Start Date End Date Luisa Pembertoner [address] [place] [address] PCP - General 06/29/02 Signal Helper Relationship Specialty Start Date End Date Luisa Pembertoner [address] [place] [address] PCP - General 06/29/02 Signal Helper Relationship Specialty Start Date End Date Luisa Pembertoner [address] [place] [address] PCP - General 06/29/02 Signal Helper Relationship Specialty Start Date End Date Luisa Pembertoner [address] [place] [address] PCP - General 06/29/02 Signal Helper Relationship Specialty Start Date End Date Luisa Pembertoner [address] [place] [address] PCP - General 06/29/02 Signal Helper Relationship Specialty Start Date End Date Luisa Pembertoner [address] [place] [address] PCP - General 06/29/02 Signal Helper Relationship Specialty Start Date End Date Luisa Pembertoner [address] [place] [address] PCP - General 06/29/02 Signal Helper Relationship Specialty Start Date End Date Luisa Pemberton [address] [place] [address] PCP - General 06/29/02 Signal Helper Relationship Specialty Start Date End Date Luisa Pembertoner [address] [place] [address] PCP - General 06/29/02 Signal Helper Relationship Specialty Start Date End Date Luisa Pemberton [address] [place] [address] PCP - General 06/29/02 Signal Helper Relationship Specialty Start Date End Date Luisa Pemberton [address] [place] [address] PCP - General 06/29/02 Signal Helper Relationship Specialty Start Date End Date Luisa Pemberton [address] [facility] [address] [place] [address] PCP - General 06/29/02 Signal Helper Relationship Specialty Start Date End Date Luisa Pemberton [address] [facility] [address] [place] [address] PCP - General 06/29/02 Signal Helper Relationship Specialty Start Date End Date Luisa Pemberton [address] [facility] [address] [place] [address] PCP - General 06/29/02 Signal Helper Relationship Specialty Start Date End Date Luisa Pembertoner [address] [place] [address] PCP - General 06/29/02 Signal Helper Relationship Specialty Start Date End Date Luisa Pembertoner [address] [place] [address] PCP - General 06/29/02 Signal Helper Relationship Specialty Start Date End Date Luisa Pemberton [address] [place] [address] PCP - General 06/29/02 Signal Helper Relationship Specialty Start Date End Date Luisa Pemberton [address] [place] [address] PCP - General 06/29/02 Signal Helper Relationship Specialty Start Date End Date Luisa Pemberton [address] [place] [address] PCP - General 06/29/02 Signal Helper Relationship Specialty Start Date End Date Luisa Pemberton [address] [place] [address] PCP - General 06/29/02 Signal Helper Relationship Specialty Start Date End Date Luisa Pemberton [address] [place] [address] PCP - General 06/29/02 Signal Helper Relationship Specialty Start Date End Date Luisa Pemberton [address] [place] [address] PCP - General 06/29/02 Signal Helper Relationship Specialty Start Date End Date Luisa Pemberton [address] [place] [address] PCP - General 06/29/02 Signal Helper Relationship Specialty Start Date End Date Luisa Pemberton [address] [place] [address] PCP - General 06/29/02 Signal Helper Relationship Specialty Start Date End Date Luisa Pemberton [address] [place] [address] PCP - General 06/29/02 Signal Helper Relationship Specialty Start Date End Date Luisa Pemberton [address] [place] [address] PCP - General 06/29/02 Signal Helper Relationship Specialty Start Date End Date Luisa Pemberton [address] [place] [address] PCP - General 06/29/02 Signal Helper Relationship Specialty Start Date End Date Luisa Pemberton [address] [place] [address] PCP - General 06/29/02 Signal Helper Relationship Specialty Start Date End Date Luisa Pemberton [address] [place] [address] PCP - General 06/29/02 Signal Helper Relationship Specialty Start Date End Date Luisa Pemberton [address] [place] [address] PCP - General 06/29/02 Signal Helper Relationship Specialty Start Date End Date Luisa Pemberton [address] [place] [address] PCP - General 06/29/02 Team Status: Active Member Role Status Dates Dr. Luisa Pemberton MD Family Provider Active Dr. Luisa Pemberton MD Primary Care Provider Active Team Status: Inactive Member Role Status Dates Dr. Luisa Pemberton MD Primary Care Provider Active Dr. Mohit Henley MD Attending Provider, Referring Pr ovider Active Signal Helper Relationship Specialty Start Date End Date Luisa Pemberton [address] [place] [address] PCP - General 06/29/02 Signal Helper Relationship Specialty Start Date End Date Luisa Pemberton [address] [place] [address] PCP - General 06/29/02 Signal Helper Relationship Specialty Start Date End Date Luisa Pemberton [address] [place] [address] PCP - General 06/29/02 Signal Helper Relationship Specialty Start Date End Date Luisa Pemberton [address] [place] [address] PCP - General 06/29/02 Signal Helper Relationship Specialty Start Date End Date Luisa Pemberton [address] [place] [address] PCP - General 06/29/02 Signal Helper Relationship Specialty Start Date End Date Luisa Pemberton [address] [place] [address] PCP - General 06/29/02 Signal Helper Relationship Specialty Start Date End Date Luisa Pemberton [address] [place] [address] PCP - General 06/29/02 Signal Helper Relationship Specialty Start Date End Date Luisa Pemberton [address] [place] [address] PCP - General 06/29/02 Signal Helper Relationship Specialty Start Date End Date Luisa Pemberton [address] [place] [address] PCP - General 06/29/02 Signal Helper Relationship Specialty Start Date End Date Luisa Pemberton [address] [place] [address] PCP - General 06/29/02 Signal Helper Relationship Specialty Start Date End Date Luisa Pemberton [address] [place] [address] PCP - General 06/29/02 Signal Helper Relationship Specialty Start Date End Date Luisa Pemberton [address] [place] [address] PCP - General 06/29/02 Signal Helper Relationship Specialty Start Date End Date Luisa Pemberton [address] [place] [address] PCP - General 06/29/02 Signal Helper Relationship Specialty Start Date End Date Luisa Pemberton [address] [place] [address] PCP - General 06/29/02 Signal Helper Relationship Specialty Start Date End Date Luisa Pemberton [address] [place] [address] PCP - General 06/29/02 Signal Helper Relationship Specialty Start Date End Date Luisa Pemberton [address] [place] [address] PCP - General 06/29/02 Signal Helper Relationship Specialty Start Date End Date Luisa Pemberton [address] [place] [address] PCP - General 06/29/02 Signal Helper Relationship Specialty Start Date End Date Luisa Pemberton [address] [place] [address] PCP - General 06/29/02 Signal Helper Relationship Specialty Start Date End Date Luisa Pemberton [address] [place] [address] PCP - General 06/29/02 Signal Helper Relationship Specialty Start Date End Date Luisa Pemberton [address] [place] [address] PCP - General 06/29/02 Signal Helper Relationship Specialty Start Date End Date Luisa Pemberton [address] [place] [address] PCP - General 06/29/02 Signal Helper Relationship Specialty Start Date End Date Luisa Pemberton [address] [place] [address] PCP - General 06/29/02 Signal Helper Relationship Specialty Start Date End Date Luisa Pemberton [address] [place] [address] PCP - General 06/29/02 Reason for Visit (unrecogniz ed section and content) Reason Comments Pain Specialty Diagnoses / Procedures Referred By Contac t Referred To Contact Diagnoses 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 [G43.711] Procedures CHEMODERVATE FACIAL/TRIGEM/CERV MUSC MIGRAINE CHEMODENERVATION OF MUSCLE(S) INNERVATED BY FACIAL, TRIGEMINAL, CERVICAL SPINAL AND ACCESSORY NERVES, BILATERAL PAIN KANG PROCEDURES [id number] [place] [address] Phone: tel: fax: Referral ID Status Reason Start Date Expiration Date Visits Re quested Visits Authorized [id number] 1 1 Reason Comments generalized pain Reason Comments UTI Reason Comments Orders Reason Comments Scheduling Procedure Reason Comments Clinical Esthetician - Other Specialty Diagnoses / Procedures Referred By Contac t Referred To Contact Diagnoses Migraine variant 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 Migraine variant [G43.809] 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 [G43.711] Procedures CHEMODERVATE FACIAL/TRIGEM/CERV MUSC MIGRAINE CHEMODENERVATION OF MUSCLE(S) INNERVATED BY FACIAL, TRIGEMINAL, CERVICAL SPINAL AND ACCESSORY NERVES, BILATERAL [facility] [address] [place] [address] Referral ID Status Reason Start Date Expiration Date Visits Re quested Visits Authorized [id number] 1 1 Reason Comments Case Needed Orders [...] AND ACCESSORY NERVES, BILATERAL [facility] [address] [place] [address] Referral ID Status Reason Start Date Expiration Date Visits Re quested Visits Authorized [id number] 1 1 Reason Onset Date Comments Refill Request 09/02/2023 Reason Comments Pain Generalized pain Reason Onset Date Comments Refill Request 10/24/2023 Reason Comments November 11 procedure Opened In Error Reason Comments Procedure denied Reason Comments Headache Chrinic migraines Pain generalized Reason Comments Resubmission for botox approval Specialty Diagnoses / Procedures Referred By Jero t Referred To Contact Diagnoses Migraine, unspecified, without mention of intractable migraine without mention of status migrainosus Procedures CHEMODERVATE FACIAL/TRIGEM/CERV MUSC MIGRAINE CHEMODENERVATION OF MUSCLE(S) INNERVATED BY FACIAL, TRIGEMINAL, CERVICAL SPINAL AND ACCESSORY NERVES, BILATERAL [facility] [address] [place] [id number] Referral ID Status Reason Start Date Expiration Date Visits Re quested Visits Authorized [id number] 1 1 Reason Onset Date Comments Refill Request 11/25/2023 Reason Onset Date Comments Refill Request 01/17/2024 Reason Comments Botox injections Reason Onset Date Comments Refill Request 02/20/2024 Reason Comments Appointment February 24 procedure cancelled resched uled to 03/12 Specialty Diagnoses / Procedures Referred By Jero t Referred To Contact Diagnoses Myofascial pain syndrome Procedures TRIGGER POINT INJECTION MULTI 3+ MUSCLE GRP INJECTION TRIGGER POINT THREE OR MORE MUSCLES [facility] [address] [place] [id number] Referral ID Status Reason Start Date Expiration Date Visits Re quested Visits Authorized [id number] 1 1 Specialty Diagnoses / Procedures Referred By Jero t Referred To Contact Diagnoses 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 Migraine, unspecified, without mention of intractable migraine without mention of status migrainosus Procedures CHEMODNRVTJ MUSC MUSC INNERVATED FACIAL NRV UNIL CHEMODENERVATION OF MUSCLE (S), MUSCLE (S) INNERVATED BY FACIAL NERVE [facility] [address] [place] [id number] Referral ID Status Reason Start Date Expiration Date Visits Re quested Visits Authorized [id number] 1 1 Reason Comments Cases needed for TPI's in May Reason Comments Pain generalized Specialty Diagnoses / Procedures Referred By Contac t Referred To Contact Diagnoses 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 [G43.711] Procedures CHEMODNRVTJ MUSC MUSC INNERVATED FACIAL NRV UNIL CHEMODENERVATION OF MUSCLE (S), MUSCLE (S) INNERVATED BY FACIAL NERVE [facility] [address] [place] [address] Referral ID Status Reason Start Date Expiration Date Visits Re quested Visits Authorized [id number] 1 1 Reason Onset Date Comments Refill Request 04/17/2024 Reason Onset Date Comments Refill Request 05/18/2024 Reason Onset Date Comments Refill Request 06/16/2024 Reason Comments Pain Fibromyalgia Specialty Diagnoses / Procedures Referred By Contac t Referred To Contact Diagnoses Migraine, unspecified, without mention of intractable migraine without mention of status migrainosus Migraine, unspecified, without mention of intractable migraine without mention of status migrainosus [G43.909] Procedures CHEMODNRVTJ MUSC MUSC INNERVATED FACIAL NRV UNIL CHEMODENERVATION OF MUSCLE (S), MUSCLE (S) INNERVATED BY FACIAL NERVE [facility] [address] [place] [id number] Referral ID Status Reason Start Date Expiration Date Visits Re quested Visits Authorized [id number] 1 1 Specialty Diagnoses / Procedures Referred By [facility] Referred To Contact Diagnoses Myofascial pain syndrome Myofascial pain syndrome [M79.18] Procedures TRIGGER POINT INJECTION MULTI 3+ MUSCLE GRP INJECTION TRIGGER POINT THREE OR MORE MUSCLES [facility] [address] [place] [address] Referral ID Status Reason Start Date Expiration Date Visits Re quested Visits Authorized [id number] 1 1 Reason Onset Date Comments Refill Request 08/12/2024 Reason Onset Date Comments Refill Request 09/11/2024 Reason Onset Date Comments Refill Request 11/19/2024 Reason Comments Requesting procedures Reason Onset Date Comments Refill Request 12/18/2024 Reason Comments Other LVM to schedule appt with pain mgt Reason Onset Date Comments Refill Request 02/04/2025 PRN Active and Recently Administ ered Medications (unrecognized section and content) Medication Order 08/21/2022 08/22/2022 08/23/2022 BUPivacaine HCl injection (SENSORCAINE) (CANCELED) X (OR/PROCEDURE) PRN, Starting on May 08/23/22 at 1335, Until May 08/23/22 at 1336, Intraprocedure 1335 (Given - Provid er: Morteza Meza DO) PRN Medication Order 01/29/2023 01/30/2023 01/31/2023 NaCl [...] (Given - Provid er: Dejon Andres MD) PRN Medication Order 08/27/2023 08/28/2023 08/29/2023 BUPivacaine HCl injection (SENSORCAINE) (CANCELED) X (OR/PROCEDURE) PRN, Starting on May 08/29/23 at 1508, Until May 08/29/23 at 1512, Intraprocedure 1508 (Given - Provid er: Dejon Andres MD) PRN Medication Order 09/01/2023 09/02/2023 09/03/2023 BUPivacaine HCl injection (SENSORCAINE) (CANCELED) X (OR/PROCEDURE) PRN, Starting on 09/03/23 at 1516, Until 09/03/23 at 1519, Intraprocedure 1516 (Given - Provid er: Dejon Andres MD) PRN Medication Order 10/20/2023 10/21/2023 10/22/2023 BUPivacaine HCl injection (SENSORCAINE) (CANCELED) X (OR/PROCEDURE) PRN, Starting on 10/22/23 at 1617, Until 10/22/23 at 1621, Intraprocedure 1617 (Given - Provid er: Dejon Andres MD) PRN Medication Order 10/22/2023 10/23/2023 10/24/2023 BUPivacaine HCl injection (SENSORCAINE) (CANCELED) X (OR/PROCEDURE) PRN, Starting on May 10/24/23 at 0927, Until May 10/24/23 at 0931, Intraprocedure 0927 (Given - Provid er: Dejon Andres MD) PRN Medication Order 11/12/2023 11/13/2023 11/14/2023 NaCl (PF) 0.9% injection (CANCELED) X (OR/PROCEDURE) PRN, Starting on May 11/14/23 at 1336, Until May 11/14/23 at 1346, Intraprocedure 1336 (Given - Provid er: Dejon Andres MD) onabotulinum toxin type A injection (BOTOX) (CANCELED) X (OR/PROCEDURE) PRN, Starting on May 11/14/23 at 1336, Until May 11/14/23 at 1346, Intraprocedure 1336 (Given - Provid er: Dejon Andres MD - Comment: head) onabotulinum toxin type A injection (BOTOX) (CANCELED) X (OR/PROCEDURE) PRN, Starting on May 11/14/23 at 1337, Until May 11/14/23 at 1346, Intraprocedure 1337 (Given - Provid er: Dejon Andres MD - Comment: head) PRN Medication Order 01/07/2024 01/08/2024 01/09/2024 bupivacaine (PF) 0.25 % (2.5 mg/mL) injection (SENSORCAINE MPF) (CANCELED) X (OR/PROCEDURE) PRN, Starting on May 01/09/24 at 1525, Until May 01/09/24 at 1536, Intraprocedure 1525 (Given - Provid er: Vini Mcdonald MD) PRN Medication Order 01/12/2024 01/13/2024 01/14/2024 bupivacaine (PF) 0.25 % (2.5 mg/mL) injection (SENSORCAINE MPF) (CANCELED) X (OR/PROCEDURE) PRN, Starting on 01/14/24 at 1544, Until 01/14/24 at 1551, Intraprocedure 1544 (Given - Provid er: Vini Mcdonald MD) PRN Medication Order 03/08/2024 03/09/2024 03/10/2024 bupivacaine (PF) 0.25 % (2.5 mg/mL) injection (SENSORCAINE MPF) (CANCELED) X (OR/PROCEDURE) PRN, Starting on 03/10/24 at 1526, Until 03/10/24 at 1539, Intraprocedure 1526 (Given - Provid er: Vini Mcdonald MD) PRN Medication Order 03/10/2024 03/11/2024 03/12/2024 bupivacaine (PF) 0.25 % (2.5 mg/mL) injection (SENSORCAINE MPF) (CANCELED) X (OR/PROCEDURE) PRN, Starting on May 03/12/24 at 1533, Until May 03/12/24 at 1536, Intraprocedure 1533 (Given - Provid er: Vini Mcdonald MD) PRN Medication Order 03/31/2024 04/01/2024 04/02/2024 NaCl (PF) 0.9% injection (CANCELED) X (OR/PROCEDURE) PRN, Starting on May 04/02/24 at 1540, Until May 04/02/24 at 1601, Intraprocedure 1540 (Given - Provid er: Vini Mcdonald MD) onabotulinum toxin type A injection (BOTOX) (CANCELED) X (OR/PROCEDURE) PRN, Starting on May 04/02/24 at 1540, Until May 04/02/24 at 1601, Intraprocedure 1540 (Given - Provid er: Vini Mcdonald MD) PRN Medication Order 05/10/2024 05/11/2024 05/12/2024 bupivacaine (PF) 0.25 % (2.5 mg/mL) injection (SENSORCAINE MPF) (CANCELED) X (OR/PROCEDURE) PRN, Starting on 05/12/24 at 1539, Until 05/12/24 at 1548, Intraprocedure 1539 (Given - Provid er: Vini Mcdonald MD) PRN Medication Order 05/17/2024 05/18/2024 05/19/2024 bupivacaine (PF) 0.25 % (2.5 mg/mL) injection (SENSORCAINE MPF) (CANCELED) X (OR/PROCEDURE) PRN, Starting on 05/19/24 at 1529, Until 05/19/24 at 1541, Intraprocedure 1529 (Given - Provid er: Vini Mcdonald MD) PRN Medication Order 07/05/2024 07/06/2024 07/07/2024 NaCl (PF) 0.9% injection (CANCELED) X (OR/PROCEDURE) PRN, Starting on e 07/07/24 at 1609, Until 07/07/24 at 1619, Intraprocedure 1609 (Given - Provid er: Vini Mcdonald MD) onabotulinum toxin type A injection (BOTOX) (CANCELED) X (OR/PROCEDURE) PRN, Starting on 07/07/24 at 1609, Until 07/07/24 at 1619, Intraprocedure 1609 (Given - Provid er: Vini Mcdonald MD) PRN Medication Order 07/12/2024 07/13/2024 07/14/2024 bupivacaine (PF) 0.25 % (2.5 mg/mL) injection (SENSORCAINE MPF) (CANCELED) X (OR/PROCEDURE) PRN, Starting on 07/14/24 at 1510, Until 07/14/24 at 1513, Intraprocedure 1510 (Given - Provid er: Vini Mcdonald MD) PRN Medication Order 07/14/2024 07/15/2024 07/16/2024 bupivacaine (PF) 0.25 % (2.5 mg/mL) injection (SENSORCAINE MPF) (CANCELED) X (OR/PROCEDURE) PRN, Starting on May 07/16/24 at 1519, Until May 07/16/24 at 1529, Intraprocedure 1519 (Given - Provid er: Vini Mcdonald MD) PRN Medication Order 09/06/2024 09/07/2024 09/08/2024 bupivacaine (PF) 0.25 % (2.5 mg/mL) injection (SENSORCAINE MPF) (CANCELED) X (OR/PROCEDURE) PRN, Starting on 09/08/24 at 1605, Until 09/08/24 at 1611, Intraprocedure 1605 (Given - Provid er: Vini Mcdonald MD) PRN Medication Order 09/08/2024 09/09/2024 09/10/2024 bupivacaine (PF) 0.25 % (2.5 mg/mL) injection (SENSORCAINE MPF) (CANCELED) X (OR/PROCEDURE) PRN, Starting on May 09/10/24 at 1520, Until May 09/10/24 at 1550, Intraprocedure 1520 (Given - Provid er: Vini Mcdonald MD) PRN Medication Order 10/04/2024 10/05/2024 10/06/2024 bacteriostatic sodium chloride 0.9% injection (CANCELED) X (OR/PROCEDURE) PRN, Starting on 10/06/24 at 1544, Until 10/06/24 at 1603, Intraprocedure 1544 (Given - Provid er: Vini Mcdonald MD) onabotulinum toxin type A injection (BOTOX) (CANCELED) X (OR/PROCEDURE) PRN, Starting on Tu10/06/24 at 1544, Until 10/06/24 at 1603, Intraprocedure 1544 (Given - Provid er: Vini Mcdonald MD) PRN Medication Order 11/01/2024 11/02/2024 11/03/2024 bupivacaine (PF) 0.25 % (2.5 mg/mL) injection (SENSORCAINE MPF) (CANCELED) X (OR/PROCEDURE) PRN, Starting on Sat11/03/24 at 1542, Until Sat11/03/24 at 1548, Intraprocedure 1542 (Given - Provid er: Vini Mcdonald MD) PRN Medication Order 11/03/2024 11/04/2024 11/05/2024 bupivacaine (PF) 0.25 % (2.5 mg/mL) injection (SENSORCAINE MPF) (CANCELED) X (OR/PROCEDURE) PRN, Starting on May 11/05/24 at 1537, Until May 11/05/24 at 1538, Intraprocedure 1537 (Given - Provid er: Vini Mcdonald MD) PRN Medication Order 12/27/2024 12/28/2024 12/29/2024 bupivacaine (PF) 0.25 % (2.5 mg/mL) injection (SENSORCAINE MPF) (CANCELED) X (OR/PROCEDURE) PRN, Starting on Sat12/29/24 at 1548, Until Sat12/29/24 at 1557, Intraprocedure 1548 (Given - Provid er: Vini Mcdonald MD) PRN Medication Order 12/29/2024 12/30/2024 12/31/2024 bupivacaine (PF) 0.25 % (2.5 mg/mL) injection (SENSORCAINE MPF) (CANCELED) X (OR/PROCEDURE) PRN, Starting on May 12/31/24 at 1538, Until May 12/31/24 at 1541, Intraprocedure 1538 (Given - Provid er: Vini Mcdonald MD) PRN Medication Order 01/03/2025 01/04/2025 01/05/2025 bacteriostatic sodium chloride 0.9% injection (CANCELED) X (OR/PROCEDURE) PRN, Starting on Sat01/05/25 at 1513, Until Sat01/05/25 at 1523, Intraprocedure 1513 (Given - Provid er: Vini Mcdonald MD) onabotulinum toxin type A injection (BOTOX) (CANCELED) X (OR/PROCEDURE) PRN, Starting on Sat01/05/25 at 1513, Until Sat01/05/25 at 1522, Intraprocedure 1513 (Given - Provid er: Vini Mcdonald MD) PRN Medication Order 02/21/2025 02/22/2025 02/23/2025 bupivacaine (PF) 0.25 % (2.5 mg/mL) injection (SENSORCAINE MPF) (CANCELED) X (OR/PROCEDURE) PRN, Starting on Sat02/23/25 at 1644, Until Sat02/23/25 at 1646, Intraprocedure 1644 (Given - Provid er: Vini Mcdonald MD) FOR RECORDS PERTAINING TO PATIENTS WHO [...] BE BASED ON THE PRIMARY CLINICAL RECORDS. [facility]. provides no warranty or guarantee of the accuracy or completeness of information in this document.
[2025-03-05 18:46] LABS: Hematocrit 40.3 % (37-47); Hemoglobin 13.1 g/dL (12.0-15.0); Mean Corp Hgb Conc 32.5 g/dL (32-36); Mean Corpuscular Volume 91.0 fL (81-99); Mean Platelet Vol. 10.4 fl (6.2-12.0); Platelet Count 333 K/mm3 (150-450); RBC Distribution Width CV 12.9 % (11.6-14.6); RBC Distribution Width SD 42.6 fl (35.1-43.9); Red Blood Count 4.43 M/mm3 (4.2-5.4); White Blood Count 8.3 K/mm3 (4.4-11.0)
[2025-03-05 19:26] LABS: AST(SGOT) 21 U/L (<=31); Alanine Aminotransfer ALT/SGPT 15 U/L (<=34); Albumin, Serum 4.2 g/dL (3.5-5.0); Alkaline Phosphatase 54 U/L (35-104); Anion Gap 17 (5-15); BUN 9 mg/dL (4-19); BUN/Creat Ratio 11.6 RATIO (10-20); Calcium,Total 9.1 mg/dL (7.6-11.0); Carbon Dioxide 19.0 mmol/L (21.0-32.0); Chloride 104 mmol/L (98-108); Cholesterol 203 mg/dL (<=200); Globulin 2.6 g/dL (2.2-4.2); Glucose 84 mg/dL (70-99); Low Density Lipoprotein Calc. 111 mg/dL; Potassium 3.4 mmol/L (3.3-5.1); Triglycerides 68 mg/dL; Very Low Density Lipoprotein 14 mg/dL (5-40); Vitamin D,25 Hydroxy 35.7 ng/mL (30-100); cholesterol:hdl ratio screen 2.58
== END | disposition home or self-care (01) ==
LOC: MFPLAB 16:31
PROVIDERS: PCP Family Medicine; Referring Provider Family Medicine; Visit Provider Family Medicine
DX: Z13.1 Encounter for screening for diabetes mellitus (principal); Z13.220 Encounter for screening for lipoid disorders; R53.83 Other fatigue
CPT/HCPCS: 36415; 80053; 80061; 82306; 84443; 85027

== ENCOUNTER → 2025-04-08 | Outpatient (CLI) | payer MEDICARE, MEDICAID, SELFPAY ==
--- NOTE | 2025-04-08 14:12 | CT_ITS ---
PROCEDURE: CT/CTA Chst, Abd, Pel W and/or WO
--- NOTE | 2025-04-08 14:12 | ECHOD_ITS ---
Reason For Study ECHO/Echo Complete
== END | disposition home or self-care (01) ==
LOC: CVS 14:12
PROVIDERS: PCP Family Medicine; Referring Provider Student in an Organized Health Care Education/Training Program; Visit Provider Student in an Organized Health Care Education/Training Program
DX: I34.1 Nonrheumatic mitral (valve) prolapse (principal); Q79.60 Ehlers-Danlos syndrome, unspecified
CPT/HCPCS: 71275; 74174; 93306; Q9967

== ENCOUNTER 2025-04-26 06:27 | Day surgery (SDC) | payer MEDICARE, MEDICAID, SELFPAY ==
--- NOTE | 2025-04-19 08:55 | PAT.ANESEVAL ---
Pre-Assessment Diagnosis/Proposed Procedure Planned Operative Procedure(s): (B) Myringotomy,Tubes Anesthesia History Anesthesia History - sourcing manager: Anesthesia History - sourcing manager Hx Hospitalization No 04/19/25 08:22 Any Problems With Anesthesia Yes: PONV 04/19/25 08:22 Cholinesterase deficiency Yes: Succinylcholine 04/19/25 08:22 You/Your Family Experience No 04/19/25 08:22 fever (hyperthermia) with Relationship Recent Exposure to Contagious No 08/12/23 09:32 Disease Does patient have nerve No 04/19/25 08:22 stimulator Patient instructed to have device shut off --Does patient have Pacemaker or ICD? When Was Last Pacemaker Check QUESTION #4 FULL TEXT: You/Your Family Experience fever (hyperthermia) with Anesthesia Last Oral Intake Last Oral intake: Last Oral Intake NPO since Meds taken in AM with sips of water? Meds patient instructed to take am of surgery PONV PONV - sourcing manager: PONV - sourcing manager Female Yes 04/19/25 08:22 HX of Motion Sickness Yes 04/19/25 08:22 HX of N/V After Surgery Yes 04/19/25 08:22 Non-Smoker Yes 04/19/25 08:22 Duration of Surgery greater No 04/19/25 08:22 than 60 minutes Number of Risk Factors 4 04/19/25 08:22 PONV Score Severe Risk 04/19/25 08:22 Height & Weight Height & Weight: Anesthesia: Height & Weight Height 5 ft 7 in 04/08/25 13:16 Respiratory Assessment Respiratory Assessment - sourcing manager: Respiratory Tract Infection Hx - sourcing manager Hx Respiratory Tract Infection No 04/19/25 08:22 STOP Sleep Apnea STOP Sleep Apnea - sourcing manager: STOP Sleep Apnea - sourcing manager Hx Hypertension No 04/19/25 08:22 Hx Sleep Apnea No 04/19/25 08:22 CPAP BIPAP Do you snore loudly (louder No 04/19/25 08:22 than talking or can be heard Do you often feel tired/ No 04/19/25 08:22 fatigued/ sleepy during daytime? Has anyone observed you stop No 04/19/25 08:22 breathing during sleep? STOP Results Negative 04/19/25 08:22 QUESTION #5 FULL TEXT : Do you snore loudly (louder than talking or can be heard through closed doors)? 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 Specify any problems Hx of Preganancy in last 3 No 04/19/25 08:22 Months Nurse Filling Out Transfusion MGRIKIMBERLY 04/19/25 08:22 & Questions: Date: 04/19/25 04/19/25 08:22 Time: 08:04/19/25 08:22 Patient unable to answer at this time (ie. confused, unrespo /Reproduction History /Reproductive History - sourcing manager: /Reproductive Hx- sourcing manager Hx Now No 04/19/25 08:22 Gestational Age (in weeks): EDC: Hx Hx Para Hx Section SAB No 04/19/25 08:22 Does the father of the baby or his family experience fever w Father of the baby Malignant Hypertension history comment [facility] Medical History (Updated 04/19/25 @ 08:37 by Aicha Vazquez) Post-menopausal Muscular dystrophy PONV (postoperative nausea and vomiting) Syncope Difficulty chewing History of irregular heartbeat SVT (supraventricular tachycardia) Mast cell activation GERD (gastroesophageal reflux disease) Mitochondrial cytopathy Idiopathic gastroparesis COVID-19 Loss of hearing Uses wheelchair Arthritis Easy bruising Cyclic vomiting syndrome Marfan syndrome Mitochondrial myopathies Chiquis-Danlos syndrome Injury of back Migraine headache Loss of consciousness Difficulty swallowing Gastric reflux Non-smoker Shortness of breath on exertion Leg cramps History of pain when walking History of edema History of echocardiogram History of stress test Cardiology follow-up encounter POTS (postural orthostatic tachycardia syndrome) Chest pain Hx of muscular dystrophy Home Medications Medication Instructions Recorded Last Taken Type megestrol 400 mg/10 mL (40 mg/mL) 80 mg PO DAILY 07/31/23 08/11/23 History oral suspension montelukast 10 mg tablet 10 mg PO QHS 07/31/23 08/11/23 History (Singulair) multivitamin (Daily Multi-Vitamin 1 tab PO DAILY 07/31/23 08/11/23 History tablet) cetirizine 10 mg capsule (Zyrtec) 10 mg PO QDAY PRN allergy symptoms 04/05/25 Unknown History ondansetron 8 mg disintegrating 8 mg PO TID PRN nausea and 04/08/25 Unknown Rx tablet vomiting #30 tabs oxycodone 20 mg/mL oral concentrate 10 mg PO Q4H 04/08/25 Unknown History Allergy/AdvReac Type Severity Reaction Status Date / Time adhesive tape Allergy Intermediate Hives Verified 04/19/25 08:19 morphine Allergy Intermediate Hives Verified 04/19/25 08:19 perfume Allergy Intermediate Hives Verified 04/19/25 08:19 cat dander Allergy Unknown unknown Verified 04/19/25 08:19 cephalexin AdvReac Intermediate Other Verified 04/19/25 08:19 tetanus and diphtheria AdvReac Intermediate Swelling Verified 04/19/25 08:19 toxoids Family History Father Cancer Hypertension Mother Poomgdc-Mqsfn-Ijxcc disease BEE (obstructive sleep apnea) Afib Grandfather Hypertension Grandmother Breast cancer Sister EDS (Chiquis-Danlos syndrome) Surgical History History of cardiac catheterization History of myringotomy History of removal of retained hardware Hx of biopsy History of ankle surgery Hx of wisdom tooth extraction Hx of prior ablation treatment History of ankle surgery History of ankle surgery Hx of left knee surgery Hx of right knee surgery Hx of hammer toe correction Hx of hammer toe correction History of tonsillectomy and adenoidectomy Social History Smoking Status: Never smoker alcohol intake: never substance use type: does not use caffeine: No Audit: Pertinent Findings HISTORY of Pertinent Findings History of Pertinent Findings: extensive documented past medical history, including Chiquis-Danlos, Marfan's syndrome, muscular dystrophy with a mitochondrial cytopathy, mitral valve disorder. Patient also has a history of POTS, hearing loss, idiopathic gastroparesis, cyclic vomiting syndrome. She followed with a specialized physician for Chiquis-Danlos in her teenage years but has not followed with a specialist in some time. As for her mitochondrial cytopathy, she admits this was also confirmed genetically at the [facility]. She has had a long history of following both with EP in [place] as well as the [facility] for dysautonomia. She she admits she has failed all medical regimens due to side effects. As per cardiology: Low risk surgical procedure. Regardless of risk stratification and METs ~4, patient remains at elevated baseline risk due to Chiquis-Danlos syndrome and risk for vascular fragility. Despite her condition, patient denies any anesthetic or operative complications in her various history of surgeries and procedures, including orthopedic procedures and cardiac ablations and catheterizations. Elevated risk was explained to the patient who voices understanding. Cardiac clearance is in chart Pertinent Findings EKG Perinent findings: 07/2023: Sinus tachycardia Echo (EF%) pertinent findings: 03/2025: LVEF 55%, mild pulmonic valve insufficiency, equivocal MVP Recommendation Anesthesia Recommendation Anesthesia recommendation: OPTIMIZED for anesthesia
[2025-04-26] VITALS (8 sets, daily range): BP systolic 110–145; BP diastolic 59–100; PULSE 96–106; RESP 12–20; TEMP 36.8–37.1; O2SAT 97–100; BMI 17.9
--- OUTSIDE RECORDS SUMMARY | 2025-04-26 06:31 | XMS RPT_ITS | CCD ---
Author Organization [facility] Care Team Providers Care Licensed Pesticide Applicator Name Role Phone Erica Art Unavailable Unavailable Erica Art Unavailable Unavailable Sarah, May Unavailable Unavailable Sarah, May Unavailable Unavailable Luisa Pemberton Primary Care Provider Luisa Pemberton Primary Care Provider Luisa Pemberton Primary Care Provider [phone] Luisa Pemberton Primary Care Provider [phone] Luisa Pemberton Primary Care Provider Luisa Pemberton Primary Care Provider Cole SAMANIEGO, Michele Primary Care Physician Cole SAMANIEGO, Michele Attending Physician Cole SAMANIEGO, Michele Referring Provider [phone] Kamaljit Harding Attending Unavailable Cole, Chalon Referring Unavailable Cole, Chalon Primary Care Unavailable Cole, Michele Attending Unavailable Cole, Michele Referring Unavailable Cole, Chalon Primary Care Unavailable Kamaljit Harding Attending Unavailable Kamaljit Harding Referring Unavailable Cole, Chalon Primary Care Unavailable Cole, Chalon Primary Care Unavailable LoryMohit inman Attending Unavailable Ilir Henleyin Referring Unavailable Cole, Tomason Attending Unavailable Cole, Chalon Referring Unavailable Cole, Chalon Primary Care Unavailable Nolt, Mayuri Attending Unavailable Cole, Chalon Primary Care Unavailable Marbella, Hakan Attending Unavailable Cole, Chalon Primary Care Unavailable Cole, Chalon Referring Unavailable Cole, Chalon Primary Care Unavailable Viji Pantoja Attending Unavailable VINI MCDONALD Admitting Unavailable VINI MCDONALD Attending Unavailable JOLLIFF, LUISA HARDEEP Primary Care Unavailable VIPIN MCDONALDOLAS Admitting Unavailable VOLCHKOVINI Attending Unavailable JOLLIFF, LUISA HARDEEP Primary Care Unavailable ERIKA CONWAY Attending Unavailable JOLLIFF, LUISA HARDEEP Primary Care Unavailable VOLCHKOVINI Admitting Unavailable VOLCHKOVINI Attending Unavailable JOLLIFF, LUISA HARDEEP Primary Care Unavailable VOLCHKOVINI Admitting Unavailable VOLCHKOVINI Attending Unavailable JOLLIFF, LUISA HARDEEP Primary Care Unavailable VOLCHKOVINI Admitting Unavailable VOLCHKOVINI Attending Unavailable JOLLIFF, LUISA HARDEEP Primary Care Unavailable VOLCHKOVINI Admitting Unavailable VOLCHKO, VINI Attending Unavailable JOLLIFF, LUISA HARDEEP Primary Care Unavailable VOLCHKOVINI Admitting Unavailable VOLCHKOVINI Attending Unavailable JOLLIFF, LUISA HARDEEP Primary Care Unavailable ERIKA CONWAY Attending Unavailable JOLLIFF, LUISA HARDEEP Primary Care Unavailable VOLCHKOVINI Admitting Unavailable VOLCHKOVINI Attending Unavailable JOLLIFF, LUISA HARDEEP Primary Care Unavailable VOLCHKOVINI Admitting Unavailable VOLCHKOVINI Attending Unavailable JOLLIFF, LUISA HARDEEP Primary Care Unavailable VOLCHVINI VELEZ Admitting Unavailable VOLCHKOVINI Attending Unavailable JOLLIFF, LUISA HARDEEP Primary Care Unavailable VOLCHKOVINI Admitting Unavailable VOLCHKOVINI Attending Unavailable JOLLIFF, LUISA HARDEEP Primary Care Unavailable VOLCHVINI VELEZ Admitting Unavailable VOLCHVINI VELEZ Attending Unavailable JOLLIFF, LUISA HARDEEP Primary Care Unavailable ERIKA CONWAY Attending Unavailable JOLLIFF, LUISA HARDEEP Primary Care Unavailable VOLCHKOVINI Admitting Unavailable VOLCHKOVINI Attending Unavailable JOLLIFF, LUISA HARDEEP Primary Care Unavailable VOLCHVINI VELEZ Admitting Unavailable VOLCHKOVINI Attending Unavailable JOLLIFF, LUISA HARDEEP Primary Care Unavailable VOLCHVINI VELEZ Admitting Unavailable VOLCHKOVINI Attending Unavailable JOLLIFF, LUISA HARDEEP Primary Care Unavailable ERIKA CONWAY Attending Unavailable COLE, CHALON Primary Care Unavailable VOLCHKOVINI Admitting Unavailable VOLCHKOVINI Attending Unavailable COLE, CHALON Primary Care Unavailable VOLCHKOVINI Admitting Unavailable VINI MCDONALD Attending Unavailable MICHELE GALVAN Primary Care Unavailable Allergies Allergy Classification Reported Allergen(s) Allergy Type Date of Onset Reaction(s) Facility Cephalosporins (antibiotic) (1 source) Cephalexin Drug Allergy 1 [facility] Opioid Agonists (1 source) Morphine Drug Allergy 3 [facility] (20 sources) Cephalexin; Translations: [cephalexin] Drug Allergy 1 Unknown [facility] Work Phone: Comment on above: PATIENT HAS MUSCULAR DYSTROPY (20 sources) Morphine; Translations: [morphine] Drug Allergy 3 [facility] Work Phone: (20 sources) PERFUMES; Translations: [PERFUMES] drug allergy 3 [facility] Work Phone: (4 sources) ADHESIVE BANDAGES; Translations: [ADHESIVE BANDAGES] allergy to substance 3 [facility] Work Phone: (20 sources) Adhesive agent; Translations: [ADHESIVE] Propensity to adverse reactions 3 [facility] (20 sources) Fragrances; Translations: [FRAGRANCES] Allergy to substance 3 Rash, [facility] (3 sources) Adhesive Tape; Translations: [adhesive tape] Allergy to substance 4 [facility] (20 sources) perfume; Translations: [perfume] Allergy to substance 4 [facility] (1 source) tetanus and diphtheria toxoids Drug allergy (disorder) 5 [facility] (1 source) cat dander Drug allergy (disorder) 5 [facility] Medications Current Medications Medication Drug Class(es) Dates Sig (Normalized) Sig (Original) benzocaine 15 mg / menthol 2.6 mg oral lozenge (1 source) Standardized Chemical Allergen Start: 12-23-2023 ipratropium bromide 0.042 mg/actuat metered dose nasal spray (20 sources) Anticholinergic Start: 07-31-2023 Start: 07-31-2023 Ipratropium Br omide Active 2 SPRAY INTRANASAL NEEDED July 31, [...] take 80 mg by mouth once daily Start: 08-11-2010 End: 01-02-2022 megestrol (MEGACE) 40 [...] modafinil 100 mg oral tablet (20 sources) Sympathomimetic-like Agent Start: 2 End: 2 take 1 tablet by mouth once daily modafinil (PROVIGIL) 100 mg tablet Take 1 tablet by mouth once daily for 30 days. 02/23/2022 Active Comment on above: Take 1 tablet by giuliano th once daily for 30 days. montelukast 10 mg oral tablet (20 sources) Leukotriene Receptor Antagonist Start: 3 take 1 tablet by mouth at bedtime Comment on above: Take 10 mg by mouth daily at bedtime. Take one(1) tablet daily. Multivitamin (Daily Multi-Vitamin) tablet (2 sources) Start: 4 Start: 07-31-2023 take 1 tablet by giuliano th once daily Multivitamin (Daily Multi-Vitamin) tablet Active 1 TABLET PO DAILY July 31, 2023 12:00am ondansetron 8 mg disintegrating oral tablet (20 sources) Serotonin-3 Receptor Antagonist Start: 11-27-2013 take 1 tablet by mouth twice daily Start: 11-06-2007 take 1 tablet by giuliano th three times daily ondansetron (ZOFRAN) 8 mg tablet ondansetron HCl 8 mg tablet TAKE 1 TABLET BY MOUTH THREE TIMES A DAY 11/06/2007 Active Start: 11-06-2007 ZOFRAN 8 MG TA BS As needed up to 3 tablets per day ONDANSETRON HCL [id number] Nita Braun Comment on above: ondansetron HCl 8 mg tablet TAKE 1 TABLET BY MOUTH THREE TIMES A DAY oxyCODONE hydrochloride 20 mg/ml oral solution (20 sources) Opioid Agonist Start: 01-05-2025 End: 03-07-2025 oxyCODONE concentrate (ROXICODONE) 20 mg/mL concentrated solution Indications: Cvifwlf-Wmgpb-Ffzqf disease Take 0.5-1 mL by mouth every 6 hours as needed for pain for up to 30 days. Continue working on decreasing your dose by 0.5 mL at a time as tolerated. 120 mL 02/05/2025 03/07/2025 Active Start: 12-21-2024 End: 01-20-2025 oxyCODONE concentrate (ROXIC ODONE) 20 mg/mL concentrated solution Indications: Pazvivm-Wssta-Oxwcf disease Take 0.5-1 mL by mouth every 4 hours as needed for pain for up to 30 days. Continue working on decreasing your dose by 0.5 mL at a time as tolerated. Patient should start on December 21, 2024. 150 mL 12/21/2024 01/05/2025 Discontinued Start: 10-11-2024 End: 12-19-2024 oxyCODONE concentrate (ROXIC ODONE) 20 mg/mL concentrated solution Indications: Ckmiiap-Zqvqn-Pwydi disease Take 0.5-1 mL by mouth every 4 hours as needed for pain for up to 30 days. Continue working on decreasing your dose by 0.5 mL at a time as tolerated. 150 mL 11/19/2024 12/18/2024 Discontinued Start: 08-13-2024 End: 10-06-2024 oxyCODONE concentrate (ROXIC ODONE) 20 mg/mL concentrated solution Indications: Jorxsov-Inupj-Dcykk disease Take 0.5-1 mL by mouth every 4 hours as needed for pain for up to 25 days. Continue working on decreasing your dose by 0.5 mL at a time as tolerated. 150 mL 09/11/2024 09/18/2024 Discontinued Start: 07-14-2024 End: 08-08-2024 oxyCODONE concentrate (ROXIC ODONE) 20 mg/mL concentrated solution Indications: Pamrpsa-Jytnn-Ftlzv disease Take 0.5-1 mL by mouth every 4 hours as needed for pain for up to 25 days. Patient should start on July 14, 2024. 150 mL 07/14/2024 08/08/2024 Active Start: 06-18-2024 End: 07-13-2024 oxyCODONE concentrate (ROXIC ODONE) 20 mg/mL concentrated solution Indications: Ufiqsga-Wrqck-Qvrmj disease Take 0.5-1 mL by mouth every 4 hours as needed for pain for up to 25 days. Take 0.5-1mL every 4 hours as needed for pain for up to 25 days Patient should start on June 18, 2024. 150 mL 06/18/2024 06/23/2024 Discontinued Start: 05-19-2024 End: 06-16-2024 oxyCODONE concentrate (ROXIC ODONE) 20 mg/mL concentrated solution Indications: Gupionl-Yyuvl-Qlhmj disease Take 0.5-1 mL by mouth every 4 hours as needed for pain for up to 25 days. Take 0.5-1mL every 4 hours as needed for pain for up to 25 days Patient should start on May 19, 2024. 150 mL 05/19/2024 06/16/2024 Discontinued Start: 04-24-2024 End: 05-19-2024 oxyCODONE concentrate (ROXIC ODONE) 20 mg/mL concentrated solution Indications: Wrrfttc-Cwqvn-Cchwe disease Take 0.5-1 mL by mouth every [...] concentrate (ROXICODONE) 20 mg/mL concentrated solution Indications: Cosgcpt-Jtkee-Lyrkq disease Take 0.5-1 mL by mouth every [...] 150 mL 0 12/20/2023 01/17/2024 Discontinued Start: 10-02-2023 End: 10-27-2023 oxyCODONE concentrate [...] July 31, 2023 12:00am Start: 06-19-2023 End: 12-20-2023 take 0.5-1 mL by mouth [...] 150 mL 0 11/25/2023 12/18/2023 Discontinued Start: 05-08-2023 End: 06-02-2023 oxyCODONE concentrate [...] every 4-6 hours as needed OXYCODONE HCL [id number] Levi Florez MD Comment on above: Take 0.5 mL by mouth every 4 hours as needed for pain for up to 25 days. Take 0.5-1mL every 4 hours as needed for pain for up to 25 days. Do not start before 12/20/2021 Do not start before December 20, 2021. Take by mouth. Take 0.5-1 mL by giluiano th every 4 hours as needed for pain for up to 25 days. Take 0.5-1mL every 4 hours as needed for pain for up to 25 days. Do not start before 12/20/2021 Do not start before January 17, 2022. Take 0.5-1 mL by iguliano th every 4 hours as needed for [...] MG/5ML SOLN 20 ml daily OXYCODONE-ACETAMINO PHEN [id number] Nita Braun Start: 11-06-2007 End: 08-14-2012 ROXICET 5-325 MG/5ML SOLN 20 ml daily OXYCODONE-ACETAMINOPHEN [id number] Nita Braun amcinonide 1 mg/ml topical cream [...] UNIT/ML SOLN Take as directed EPOETIN APOLONIA [id number] Nita Braun 1 ml erenumab-aooe 70 mg/ml [...] MCG/ACT SUSP Take as directed FLUTICASONE PROPIONATE [id number] Levi Florez MD End: 12-08-2021 take 1 spray(s) nasal route once daily fluticasone (FLONASE) 50 mcg/actuation nasal spray Use 1 [place] in each nostril once daily. 0 12/08/2021 Discontinued (Course of therapy completed) Comment on above: Use 1 [place] in each nostril once daily. HYDROmorphone hydrochloride 4 mg oral tablet (8 sources) Opioid Agonist Start: 04-03-20 10 End: 06-29-19 12 DILAUDID 4 MG TABS as needed HYDROMORPHONE HCL [id number] Nita Braun ivabradine 5 mg oral tablet (3 sources) Hyperpolarization-act ivated Cyclic Nucleotide-gated Channel Ilvan End: 01-03-20 take 1 tablet by mouth [...] Amide Local Anesthetic Start: 12-02-19 End: 01-03-20 22 lidocaine (ANECREAM5) crea lidocaine 5% cream 0 [...] Livan Start: 08-12-19 11 End: 06-29-19 12 take 1 tablet by mouth once daily METOPROLOL SUCCINATE ER 25 MG [id number] One tablet by mouth daily METOPROLOL SUCCINATE [id number] Nita Barun mirtazapine 15 mg oral tablet (3 sources) Start: 11-28-19 23 End: 12-20-19 23 take 1 tablet by mouth once daily at bedtime mirtazapine (REMERON) 15 mg tablet Take 1 tablet by mouth daily at bedtime. 30 tablet 0 11/27/2022 12/19/2022 Discontinued Comment on above: Take 1 tablet by giuliano th daily at bedtime. mupirocin 0.02 mg/mg topical ointment (6 sources) RNA Synthetase Inhibitor Antibacterial Start: 12-02-19 14 End: 12-09-19 22 mupirocin 2 % ointment Indications: Contact dermatitis [...] powd (5 sources) Start: 06-08-20 End: 01-03-20 22 Naltrexone HCL, Bulk, 100 % powd naltrexone [...] CAPS One tablet by mouth daily PREGABALIN [id number] Nita Braun propranolol hydrochloride 10 mg oral tablet (8 sources) beta-Adrenergic Livan Start: 08-12-19 11 End: 06-29-19 12 PROPRANOLOL HCL 10 MG TABS (Inderal) 1 tablet 3-4 X a day as needed PROPRANOLOL HCL [id number] Nita Braun tretinoin 0.25 mg/ml topical cream (9 sources) Retinoid Start: 12-02-19 End: 01-03-20 tretinoin (AVITA) 0.025 % topical cream Indications: [...] on above: Apply small amount ( eg., "pea-sized glob" divided up) to entire area of acne [...] sources) Corticosteroid Start: 12-02-19 14 End: 12-09-19 triamcinolone acetonide 0.1 % cream Indications: Contact [...] [Atopic dermatitis, unspecified] Onset: 07-25-2012 07-25-2012 Chronic Calculus of urinary tract (1 source) Calculus of kidney; Translations: [Calculus of kidney] Onset: 04-20-2025 Episodic Cardiac dysrhythmias (20 sources) Supraventricular tachycardia; Translations: [Supraventricular tachycardia] Onset: 08-14-1997 08-11-2010 Chronic Esophageal disorders (20 sources) Gastroesophageal reflux disease; Translations: [Gastro-esophageal reflux disease without esophagitis] Onset: 08-14-1997 02-23-2022 Chronic Genitourinary symptoms and ill-defined conditions (1 source) Nocturia; Translations: [Nocturia] Onset: 04-20-2025 Episodic Headache; including migraine (20 sources) Migraine variants; Translations: [Other migraine, not intractable, without status migrainosus] Onset: 03-13-2005 03-13-2005 Chronic Heart valve disorders (5 sources) Mitral valve prolapse; Translations: [Nonrheumatic mitral (valve) prolapse] Onset: 08-11-2010 08-11-2010 Chronic Malaise and fatigue (20 sources) Fatigue; Translations: [Chronic fatigue, unspecified] Onset: 10-22-1997 02-23-2022 Chronic Other circulatory disease (1 source) Postural orthostatic tachycardia syndrome ; Translations: [Postural orthostatic tachycardia syndrome [POTS]] Onset: 04-08-2025 Episodic Other congenital anomalies (20 sources) Marfan's syndrome; Translations: [Marfan's syndrome, unspecified] Onset: 12-08-2021 Chronic Other congenital anomalies (20 sources) Darin-Danlos syndrome; 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, unspecified] Onset: 12-08-2021 Chronic Other congenital [...] source) Hereditary motor and sensory neuropathy; Translations: [Iwzmsgu-Znbba-Zcqwz disease] Onset: 06-19-2023 Chronic Other nutritional; endocrine; and metabolic disorders (1 source) Mitochondrial metabolism disorder, unspecified; Translations: [Mitochondrial metabolism disorder, unspecified] Onset: 04-08-2025 Chronic Other screening for suspected conditions (not mental disorders or infectious disease) (20 sources) Mammography abnormal; Translations: [Other abnormal and inconclusive findings on diagnostic imaging of breast] Onset: 02-23-2014 04-24-2016 Episodic Unclassified (20 sources) ASA CLASS III Onset: 02-09-2003 10-04-2003 Unclassified (3 sources) Darin-Danlos syndrome, unspecified; 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, unspecified] Onset: 12-08-2021 Urinary tract infections (1 source) Urinary tract infection, site not specified; Translations: [Urinary tract infection, site not specified] Onset: 04-20-2025 Episodic Viral infection (1 source) Disease caused by 2019-nCoV; Translations: [COVID-19] 12-23-2023 Episodic Past or Other Problems Problem Classification Problem Date Documented Date Episodic/Chronic Allergic reactions (20 sources) Urticaria; Translations: [Urticaria, unspecified] Onset: 07-02-2007 Resolved: 10-14-2012 07-02-2007 Episodic Cardiac dysrhythmias (20 sources) Palpitations; Translations: [Palpitations] Onset: 08-11-2010 08-11-2010 Episodic Heart valve disorders (4 sources) Heart murmur; Translations: [Cardiac murmur, unspecified] Onset: 08-11-2010 08-11-2010 Episodic Other aftercare (20 sources) Long-term current use of opiate analgesic drug; Translations: [retirement (current) use of opiate analgesic] Onset: 02-23-2022 Episodic Other aftercare (1 source) intermediate frame tender (current) use of opiate analgesic; Translations: [retirement (current) use of opiate analgesic] Onset: 04-19-2022 [...] initial encounter] Onset: 02-02-2014 02-02-2014 Episodic Other skin disorders (20 sources) Vesicular [...] disorders] Onset: 07-02-2007 Resolved: 10-14-2012 10-14-2012 Episodic Skin and subcutaneous tissue infections (20 sources) Pyoderma; Translations: [Pyoderma] Onset: 08-09-2008 Resolved: 10-14-2012 12-02-2013 Episodic Syncope (4 sources) Syncope and collapse; Translations: [Syncope and collapse] Onset: 08-11-2010 08-11-2010 Episodic Results Test Name Value Interpretation Reference Range Facility OPERATIVE NOon 04-20-2025 OPERATIVE NO HNO ID: [id number] Author: VINI MCDONALD MD Service: Pain Management Author Type: Physician Type: Operative Report Filed: 04/20/2025 16:04 Note Text: ---- Summary: TPI ---- PATIENT: Capri Aguilar SURGEON: Primary: Vini Mcdonald MD : 1975 DATE OF SURGERY: April 20, 2025 PRE-OP Diagnosis: Myofascial pain syndrome [M79.18] POST-OP Diagnosis: Same Procedure: Procedure(s): INJECTION TRIGGER POINT THREE OR MORE MUSCLES (lower back) Anesthesia Type: Local The following procedure was performed in the office today: Trigger Point Injection(s): (33948) -Informed consent was obtained and all patient [...] period of observation. Trigger points injected (#): 32 Muscle groups: Bilateral cervical paraspinous, trapezius, thoracic paraspinous, left infraspinatus Injectate: total of 16 mL of 0.25% bupivacaine; distributed equally at each site. [facility] MR/Steve 04-19-2025 MR/[facility] [address], [address] [place] [address] OFFICE VISIT Date of Service: 04/19/25 MR#: [id number] Acct: [id number] Name: CAPRI AGUILAR Rep #: [id number] : 1975 Provider: Dr. Viji Marcelino i, MD Age/Sex: 49/F [place] [facility] [place]: Signed Intake Vital Signs 04/08/25 13:16 04/19/25 15:27 Height 5 ft 7 in 5 ft 7 in Weight: 113 lb 113 lb BMI 17.6 17.6 BP 122/68 H 168/88 H Blood Pressure Location Lt brachial Position Sitting Respiration 16 Pulse 95 97 Pulse Source NIBP Temp 98.1 F Intake Visit Reasons: KIDNEY STONE Chief Complaint: 13mm kidney stone Global Marketing Manager Required: No Is patient in pain?: Yes Allergies adhesive tape Allergy (Intermediate, Verified 04/19/25 08:19) Hives morphine Allergy (Intermediate, Verified 04/19/25 08:19) Hives perfume Allergy (Intermediate, Verified 04/19/25 08:19) Hives cat dander Allergy (Unknown, Verified 04/19/25 08:19) unknown cephalexin Adverse Reaction (Intermediate, Verified 04/19/25 08:19) Other tetanus and diphtheria toxoids Adverse Reaction (Intermediate, Verified 04/19/25 08:19) Swelling Medications ???Medication ???Instructions ???Recorded ???Confirmed ???Type megestrol 400 mg/10 mL (40 mg/mL) 80 mg PO DAILY 07/31/23 04/19/25 History oral suspension montelukast 10 mg tablet 10 mg PO QHS 07/31/23 04/19/25 His tory (Singulair) multivitamin (Daily Multi-Vitamin 1 tab PO DAILY 07/31/23 04/19/25 History tablet) cetirizine 10 mg capsule (Zyrtec) 10 mg PO QDAY PRN allergy symptom s 04/05/25 04/19/25 History ondansetron 8 mg disintegrating 8 mg PO TID PRN nausea and 04/08/ 5 04/19/25 Rx tablet vomiting #30 tabs oxycodone 20 mg/mL oral concentrate 10 mg PO Q4H 04/08/25 04/19/25 History Have you fallen in the past year?: No Nurse's Note: Patient was told she had 13mm Right kidney stone. 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 Injury of back Migraine headache Loss of consciousness Difficulty swallowing Gastric reflux Non-smoker Shortness of breath on exertion Leg cramps History of pain when walking History of edema History of echocardiogram History of stress test Cardiology follow-up encounter POTS (postural orthostatic tachycardia syndrome) Chest pain Hx of muscular dystrophy Surgical History History of cardiac catheterization History [...] toe correction History of tonsillectomy and adenoidectomy Family History Father Cancer Hypertension Mother Rxjhncn-Znbqi-Gwupt disease BEE (obstructive sleep apnea) Afib Grandfather Hypertension Grandmother Breast cancer Sister EDS (Darin-Danlos syndrome) Social History Smoking Status: Never smoker alcohol intake: never substance use type: does not use caffeine: No HPI HPI Urology Chief Complaint: 13mm kidney stone Details: CAPRI AGUILAR, is a 49 F. 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 CT was done as part of work up and incidentally found a right non-obstructing stone. She is here for evaluation and management of a kidney stone. She is voiding 6 times during the day, 1 times at night. There is no urge incontinence where she cannot make it to the bathroom. There is no stress incontinence with cough, laugh, sneeze, lifting, etc. She is using no pads in 24 hours. She has had no urinary tract infections in the last year. She has not had visible blood in her urine. She is not sexually active. No children. There is no sensation of vaginal bulging. She has the following issues with chronic bowel function: none. There is no pelvic pain. She has no history of smoking. There is no history of blood clots. There is not a family history of female cancer. ROS Const Constitutional: No chil (more content not included)... Normal [facility] MR/PHILIPPJennifer 04-19-2025 MR/PAT.[facility] Medical Records Department [address] [place] [address] PAT - Anesthesia 04/19/25 0855 MR#: [id number] Acct: [id number] Name: CAPRI AGUILAR Rep #: [id number] : 1975 49 From: Kyle Barajas MD PCP: Dr. Michele Galvan MD Status:PRE [facility] Y Race: C Location: 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 When Was Last Pacemaker Check QUESTION #4 FULL TEXT: You/Your Family Experience fever (hyperthermia) with Anesthesia Last Oral Intake Last Oral intake: Last Oral Intake NPO since Meds taken in AM with sips of water? Meds patient instructed to take am of surgery PONV PONV - rider ticket worker: PONV - rider ticket worker Female Yes 04/19/25 08:22 HX of Motion Sickness Yes 04/19/25 08:22 HX of N/V After Surgery Yes 04/19/25 08:22 Non-Smoker Yes 04/19/25 08:22 Duration of Surgery greater No 04/19/25 08:22 than 60 minutes Number of Risk Factors 4 04/19/25 08:22 PONV Score Severe Risk 04/19/25 08:22 Height Weight Height Weight: Anesthesia: Height Weight Height 5 ft 7 in 04/08/25 13:16 Respiratory Assessment Respiratory Assessment - rider ticket worker: Respiratory Tract Infection Hx - rider ticket worker Hx Respiratory Tract Infection No 04/19/25 08:22 STOP Sleep Apnea STOP Sleep Apnea - rider ticket worker: STOP Sleep Apnea - rider ticket worker Hx Hypertension No 04/19/25 08:22 Hx Sleep Apnea No 04/19/25 08:22 CPAP BIPAP Do you snore loudly (louder No 04/19/25 08:22 than talking or can be heard Do you often feel tired/ No 04/19/25 08:22 fatigued/ sleepy during daytime? Has anyone observed you stop No 04/19/25 08:22 breathing during sleep? STOP Results Negative 04/19/25 08:22 QUESTION #5 FULL TEXT : Do you snore loudly (louder than talking or can be heard through closed doors)? 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 Specify any problems Hx of Preganancy in last 3 No 04/19/25 08:22 Months Nurse Filling Out Transfusion MARITZAALETA 04/19/25 08:22 Questions: Date: 04/19/25 04/19/25 08:22 Time: 08:26 04/19/25 08:22 Patient unable to answer at this time (ie. 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: /Reproduct ankur Hx- rider ticket worker Hx Now No 04/19/25 08:22 Gestational Age (in weeks): EDC: Hx Hx Para Hx Section SAB No 04/19/25 08:22 Does the father of the baby or his family experience fever w Father of the baby Malignant Hypertension history comment [facility] Medical History (Updated 04/19/25 @ 08:37 by Aicha Vazquez) Post-menopausal Muscular dystrophy PONV (postoperative nausea and vomiting) Syncope Difficulty chewing History of irregular heartbeat SVT (supraventricular tachycardia) Mast cell activation GERD (gastroesophageal reflux disease) Mitochondrial cytopathy Idiopathic gastroparesis COVID-19 Loss of hearing Uses wheelchair Arthritis Easy bruising Cyclic vomiting syndrome 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 Normal [facility] CTA Chst, Abd, Pel W and/or WOon 04-08-2025 CTA Chst, Abd, Pel W and/or WO [facility] Imaging Services [address] [place] [address] CTA Chst, Abd, Pel W and/or WO MR#: [id number] Acct: [id number] Name: AGUILARCAPRI R Rep #: [id number] : 1975 F 49 From: Garrett Hernandez MD PCP: Dr. Michele Galvan MD Status: [facility] CLI Study: CTA Chst, Abd, Pel W and/or WO Date of Exam: Exam# [id number] Ordering Dr: Kamaljit Harding DO ADDENDUM by Dr. Garrett Hernandez MD on 04/19/25 at 2355 CTA of the chest abdomen and pelvis. Multiplanar 2D reconstructions and 3D post processing was performed. One or more dose reduction techniques were used (e.g., Automated exposure control, adjustment of the mA and/or kV according to patient size, use of iterative reconstruction technique. CONTRAST: Isovue 370 VOLUME: 100 mL IMPRESSION 1. No acute abnormality. No aortic aneurysm or dissection. 2. Nonobstructive 13 mm right renal stone. No hydronephrosis. 3. Slight thoracolumbar scoliosis and pectus excavatum noted. Reading Location: [id number] 04/19/25 2355 Date cc: Dr. Michele Galvan MD; Dr. Kamaljit Harding DO * Signed PROCEDURE: CTA CHST, ABD, PEL W AND/OR WO 04/08/2025 REASON FOR EXAM: DARIN-DANLOS; IMAGE WHOLE AORTA TECHNIQUE: CTA CHST, ABD, PEL W AND/OR WO coronal and Sagittal reconstruction series were provided. One or more dose reduction techniques were used (e.g., Automated exposure control, adjustment of the mA and/or kV according to patient size, use of iterative reconstruction technique. CONTRAST: Isovue 370 VOLUME: 100 mL RADIATION DOSE SUMMARY: DLP: 287.61 mGycm COMPARISON: None available. FINDINGS: Aorta: Normal. No aneurysm or dissection. No significant atherosclerotic disease. Major branch vessels are patent, normal in course and caliber. Heart: Normal in size. No pericardial effusion. No coronary artery calcifications. Mediastinum: Unremarkable. No mass or lymphadenopathy. Lungs/pleura:: Clear. No pneumothorax or pleural effusion. Liver: Unremarkable. Gallbladder: Unremarkable. Spleen: Unremarkable. Pancreas: Unremarkable. Adrenals: Unremarkable. Kidneys: Symmetric enhancement. Nonobstructive stone in the lower pole of the right kidney measuring up to 13 mm. No hydronephrosis on either side. Bladder: Unremarkable. Reproductive Organs: Unremarkable uterus and adnexae. Bowel: No evidence of obstruction or active inflammatory process. Normal appendix. Peritoneum / Retroperitoneum: No free fluid or air. No lymphadenopathy. Bones: Pectus excavatum. Slight thoracolumbar S-shaped scoliosis. CT/CTA Chst, Abd, Pel W and/or WO IMPRESSION: 1. No acute abnormality. No aortic aneurysm or dissection. 2. Nonobstructive 13 mm right renal stone. No hydronephrosis. 3. Slight thoracolumbar scoliosis and pectus excavatum noted. Reading Location: [facility] CC: Dr. Michele Galvan MD; Dr. Kamaljit Harding DO Solar Thermal Technician: Signed Normal [facility] Cardiology Visit Reporton Cardiology Visit Report [facility] [place] [id number] [place] [address] OFFICE VISIT Date of Service: 04/08/25 MR#: [id number] Acct: [id number] Name: CAPRI AGUILAR Rep #: [id number] : 1975 Provider: Dr. Kamaljit higgins DO Age/Sex: 49/F Location: [facility] Status: Signed HPI HPI History of Present Illness Details: Ms. Aguilar is a 49-year-old female with extensive documented past medical history, including Darin-Danlos, Marfan's syndrome, muscular dystrophy with a mitochondrial cytopathy, mitral valve disorder. Patient also has a history of POTS, hearing loss, idiopathic gastroparesis, cyclic vomiting syndrome. Patient last followed in July 2023 at the [facility], syncope and autonomic disorders clinic. She was following for her POTS disorder, where she was placed on droxidopa as well as modafinil. Patient seen today for preoperative cardiac evaluation. 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 She followed with a specialized physician for Darin-Danlos in her teenage years but has not followed with a specialist in some time. As for her mitochondrial cytopathy, she admits this was also confirmed genetically at the [facility]. She has no acute complaints today. she has chronic pain over her body and has chronic nausea. Regarding her POTS, she manages this with diet and behavioral therapy. Her POTS symptoms are stable. She has had a long history of following both with EP in [place] as well as the [facility] for dysautonomia. She she admits she has failed all medical regimens due to side effects. Regarding her surgery, patient is to undergo bilateral myringotomy with tubes with Dr. Henley on April 26, 2025. This will be under general anesthesia Intake Vital Signs 12/23/23 06:57 04/08/25 13:16 Height 5 ft 7 in 5 ft 7 in Weight: 113 lb BMI 17.6 BP 122/68 H Blood Pressure Location Lt brachial Position Sitting Respiration 16 Pulse 95 Pulse Source NIBP Intake Visit Reasons: FELIPE (COLE) Global Marketing Manager Required: No Is patient in pain?: No Allergies adhesive tape Allergy (Intermediate, Verified 04/08/25 13:08) Hives morphine Allergy (Intermediate, Verified 04/08/25 13:08) Hives perfume Allergy (Intermediate, Verified 04/08/25 13:08) Hives cat dander Allergy (Unknown, Verified 04/08/25 13:08) unknown cephalexin Adverse Reaction (Intermediate, Verified 04/08/25 13:08) Other tetanus and diphtheria toxoids Adverse Reaction (Intermediate, Verified 04/08/25 13:08) Swelling Medications ???Medication ???Instructions ???Recorded ???Confirmed ???Type megestrol 400 mg/10 mL (40 mg/mL) 80 mg PO DAILY 07/31/23 04/08/25 History oral suspension montelukast 10 mg tablet 10 mg PO QHS 07/31/23 04/08/25 His tory (Singulair) multivitamin (Daily Multi-Vitamin 1 tab PO DAILY 07/31/23 04/08/25 History tablet) cetirizine 10 mg capsule (Zyrtec) 10 mg PO QDAY PRN 04/05/25 History triamcinolone acetonide 55 mcg 1 spray intranasal QDAY 04/05/25 1 History nasal spray aerosol (Aller-Sven) ciprofloxacin 0.3 %-dexamethasone 5 drp otic (ear) BID 04/08/25 History 0.1 % ear drops,suspension ondansetron 8 mg disintegrating 8 mg PO TID PRN nausea and 5 04/08/25 Rx tablet vomiting #30 tabs oxycodone 20 mg/mL oral concentrate 10 mg PO Q4H 04/08/25 04/08/25 History Ejection fraction %: 60 Have you fallen in the past year?: Yes PFSH Medical History (Updated 04/09/25 @ 16:[address] 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 POTS (postural orthostatic tachycardia syndrome) Hx of muscular dystrophy Loss of hearing Idiopathic gastroparesis Cyclic vomiting syndrome Non-smoker Uses wheelchair Arthritis Easy bruising Injury of back Migraine headache Loss of consciousness Difficulty swallowing Gastric reflux Shortness of breath on exertion Leg cramps History of pain when walking History of edema History of echocardiogram History of stress test Cardiology follow-up encounter COVID-19 Chest pain Surgical History History of cardiac catheterization History of myringotomy History of removal of retained hardware Hx of biopsy History of ankle surgery Hx of wisdom tooth extraction Hx of prior ablation treatment History of ankle surgery History of ankle surgery Hx of left knee surgery Hx of right knee surgery Hx of hammer toe correction Hx of hammer toe correction History of tonsillectomy a (more content not included)... Normal [facility] Echo Completeon 04-08-2025 Echo [facility] Cardiovascular Services [address] [place] [address] Echo Complete 04/08/25 1417 MR#: [id number] Acct: [id number] Name: CAPRI AGUILAR Rep #: [id number] : 1975 49 From: Hakan Tyson MD Attending Dr: Dr. Kamaljit Harding DO Status: REG CLI Ordering Dr: Kamaljit Harding DO Date: 04/08/25 Location: [facility] Sex: F C Admitted: Reason For Study Reason For Study: MVP Procedure This was a 2D Doppler, Color Flow transthoracic echocardiogram. Exam performed in department. Left Ventricle Normal LV size. Left ventricular systolic function is normal. The left ventricular ejection fraction is 55 %. Septal bounce. Normal diastology for age. No regional wall motion abnormalities noted. Right Ventricle Normal RV size. Normal systolic function. Atria Normal left atrium. Normal right atrium. Mitral Valve Equivocal mitral valve prolapse. Trivial mitral valve insufficiency. Tricuspid Valve Normal tricuspid valve. Trivial tricuspid valve insufficiency. Aortic Valve Trisinus/trileaflet aortic valve. Pulmonic Valve Normal pulmonic valve. Mild (1+) pulmonic valve insufficiency. Great Vessels Normal sized aortic root. The pulmonary artery is normal size. Inferior vena cava collapse with sniff. Pericardium/Pleural No pericardial effusion. MMode/2D Measurements Calculations LVIDd: 4.2 cm IVSd: 0.86 cm LVOT diam: 2.0 cm LVIDs: 3.0 cm LVPWd: 0.86 cm LVOT area: 3.1 cm2 RVDd: 2.7 cm FS: 29.8 % __ Ao root diam: 3.3 cm LAV(MOD-bp): 31.0 ml LVAd ap4: 21.9 cm2 LAV(MOD-bp) Indexed: 19.5 ml/m2 LVLd ap4: 7.3 cm LAV(MOD-sp2): 26.3 ml EDV(MOD-sp4): 56.9 ml LAV(MOD-sp4): 31.1 ml EDV(sp4-el): 55.5 ml LVAs ap4: 13.6 cm2 LVLs ap4: 6.0 cm ESV(MOD-sp4): 27.0 ml ESV(sp4-el): 26.2 ml EF(MOD-sp4): 52.5 % EF(sp4-el): 52.8 % __ LVAd ap2: 22.1 cm2 SV(MOD-sp4): 29.9 ml SV(MOD-sp2): 33.1 ml LVLd ap2: 7.1 cm SI(MOD-sp4): 18.8 ml/m2 SI(MOD-sp2): 20.9 ml/m2 EDV(MOD-sp2): 59.8 ml EDV(sp2-el): 58.0 ml LVAs ap2: 14.0 cm2 LVLs ap2: 6.5 cm ESV(MOD-sp2): 26.7 ml ESV(sp2-el): 25.7 ml EF(MOD-sp2): 55.4 % __ SV(sp4-el): 29.3 ml LA dimension(2D): 2.4 cm LA A4 area: 13.6 cm2 __ RA A4 area: 10.5 cm2 TAPSE: 1.8 cm Time Measurements MV dec time: 0.24 sec Doppler Measurements Calculations MV E max gretchen: 49.6 cm/sec Lat Peak E' Gretchen: 15.8 cm/sec Med Peak E' Gretchen: 7.7 cm/sec MV A max gretchen: 61.9 cm/sec E/E' lat: 3.1 E/E' med: 6.4 MV E/A: 0.80 __ MV V2 max: 86.8 cm/sec MV P1/2t max gretchen: 77.1 cm/sec Ao V2 max: 116.9 cm/sec MV max P.0 mmHg MV P1/2t: 94.4 msec Ao max P.5 mmHg MV V2 mean: 52.3 cm/sec Ao V2 mean: 86.1 cm/sec MV mean P.2 mmHg MV dec slope: 239.3 cm/sec2 Ao mean P.2 mmHg MV V2 VTI: 24.2 cm MVA(P1/2t): 2.3 cm2 Ao V2 VTI: 21.6 cm AV (velocity ratio): 0.84 MVA(VTI): 2.3 cm2 CLEMENTE(I,D): 2.6 cm2 CLEMENTE(V,D): 2.5 cm2 __ LV V1 max: 93.9 cm/sec SV(LVOT): 56.3 ml PA V2 max: 148.0 cm/sec LV V1 max P.5 mmHg LV V1 mean P.9 mmHg LV V1 mean: 64.7 cm/sec LV V1 VTI: 18.2 cm __ PI end-d gretchen: 136.3 cm/sec TR max gretchen: 214.1 cm/sec TR max P.3 mmHg ECHO/Echo Complete Interpretation Summary The left ventricular ejection fraction is 55 %. Normal LV size. Left ventricular systolic function is normal. Mild (1+) pulmonic valve insufficiency. Equivocal mitral valve prolapse. __ Ordering Physician: Kamaljit Harding Referring Physician: Michele Galvan Performed By: Sondra Moctezuma RDCS, RVT 04/08/251808 Date Hakan Tyson MD CC: Dr. Michele Galvan MD; Dr. Kamaljit Harding DO Date Dictated: 04/08/25 1417 Date Transcribed: 04/08/251808 Solar Thermal Technician: Signed [facility] OPERATIVE NOon 04-06-2025 OPERATIVE NO HNO ID: [id number] Author: VINI MCDONALD MD Service: Pain Management Author Type: Physician Type: Operative Report Filed: 04/06/2025 15:45 Note Text: ---- Summary: Botox Inj. ---- PATIENT: Capri Aguilar SURGEON: Primary: Vini Mcdonald MD : 1975 DATE OF SURGERY: April 06, 2025 PRE-OP Diagnosis: 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 [G43.711] POST-OP Diagnosis: Same Procedure: Procedure(s): CHEMODENERVATION OF MUSCLE(S) INNERVATED BY FACIAL, TRIGEMINAL, CERVICAL SPINAL AND ACCESSORY NERVES, BILATERAL Anesthesia Type: Local The following procedure was performed in the office today: Botox Injection PROCEDURE: Botox injection CPT code: 38263 PREPROCEDURE DIAGNOSIS: Migraine headache POSTPROCEDURE DIAGNOSIS: same [...] was prepped with alcohol. BOTOX Lot Number: [id number] BOTOX was reconstituted to a concentration of 5 U/0.1mL. The following injections were made using a 30G needle: 5 Botox units to the procerus muscle 5 Botox units to the right hot air furnace installer and repairer supercilii muscle 5 Botox units to the left hot air furnace installer and repairer supercilii muscle 30 Botox units to the [...] the procedure well with no complications noted. [facility] 03-19-2025 [facility] Office Visit (JENNIE) ---- CAPRI AGUILAR ([id number]) 1975 F Date Time Provider Department 03/19/25 2:30 PM ERIKA CONWAY During your visit today, we recorded the following information about you: Pulse Respiration Blood pressure Weight 80/minute 17/minute 149/91 47.2 kg Height 1.702 m Gail Crooks MA 03/19/2025 2:52 PM Signed Room 2 Follow up: Erika Conway PA-C 03/19/2025 2:52 PM Signed Subjective Capri Schusteron is a 49 year old female. The patient primarily being seen for generalized pain Patient was last seen on: 01/05/25 At that time, the treatment plan was: see notes Current Meds: oxycodone - am Efficacy: helps Side effects: denies TENS unit: didn't help, also had a reaction to the pads How often used: Benefit: Physical Therapy: years ago Last UDS: 09/18/24 Last injection: 02/25/25 trigger point injections - lower back, 02/23/25 - trigger point injections upper back, 01/05/25 - botox injection OARRS reviewed At the present time, the patient reports benefit with her present analgesic therapy. She denies any adverse effects. Since her previous visit, she denies any hospitalizations or ER visits. She states that the trigger point injections in the neck/upper back and lower back helped relieve 85% of her pain and have allowed her to be more active. The BOTOX injections helped decrease both the severity and frequency of her migraines by about 90%. She only had about 1 migraine the first month or two after the injections. She has noticed a slight increase in her migraines as she gets closer to the three month paulina. At that point she states that they typically start increasing in severity and frequency significantly. She is already scheduled for her next set at the 3 month paulina to keep them as controlled as possible. 02/25/2025 03/19/2025 INTAKE PAIN ASSESSMENT Are you having pain associated with your visit today? Yes, Provider notified Pain Level 6 Pain Location Back-Lower Generalized Description Sore Aching;Numbness;Pre ssure;Radiating;Sor e;Stiffness;Tendern ess;Tightness Duration Amount of Time 12 Duration Units Months Frequency Continuous Intervention/Comfor t measure Medication Pain Assessment Reassessment 09/18/2024 01/05/2025 Pain Disability Index [...] Acute gastritis without mention of hemorrhage CHARCOT Iwlrnqh-Yyeaw-qlolw disease, deafness, and intellectual disability syndrome (HCC) Eczema Darin-Danlos syndrome (HCC) Fibromyalgia GERD (gastroesophageal reflux disease) Loss of weight Marfan syndrome (HCC) Mitochondrial myopathy Mitochondrial myopathy Mitral valve disorders(424.0) Murmur Muscular dystrophies and other myopathies Other acne Persistent vomiting PAST SURGICAL HISTORY Procedure Laterality Date EAR TUBES HX ESOPHAGOGASTRODUODE NOSCOPY TRANSORAL DIAGNOSTIC 01/04/03 EGD EXTRACTION, ERUPTED TOOTH [...] SURGERY TONSILLECTOMY AND ADENOIDECTOMY TONSILLECTOMY PRIMARY/SECONDARY Tonsillectomy SOCIAL HISTORY[1] Review of Systems Constitutional: Negative for fever and unexpected weight change. (more content not included)... Normal [facility] Anion gap in Serum or Plasma Ordered By: Michele Galvan on 03-05-2025 Anion gap [Moles/Vol] 17 mmol/L High 5-15 [facility] BUN/creatinine ratioOrdered By: Michele Galvan on 03-05-2025 Urea nitrogen/Creatinine [Mass ratio] 11.6 mg/mg 10-20 [facility] Bilirubin, totalOrdered By: Michele Galvan on 03-05-2025 Bilirubin [Mass/Vol] 0.52 mg/dL 0.00-1.30 [facility] CBC-Complete Blood Cnt No Di ffon 09-26-2025 Erythrocyte distribution width (RBC) [Ratio] 12.9 % Normal 11.6-14.6 [facility] Comment on above: Performed By: #### L 500.4100, L506.1001, L500.4050, L100.0500, L501.9520 #### [facility] [address] [place], [address] Hematocrit (Bld) [Volume fraction] 40.3 % Normal 37-47 [facility] Comment on above: Performed By: #### L 500.4100, L506.1001, L500.4050, L100.0500, L501.9520 #### [facility] [address] [place], [address] Hemoglobin (Bld) [Mass/Vol] 13.1 g/dL Normal 12.0-15.0 [facility] Comment on above: Performed By: #### L 500.4100, L506.1001, L500.4050, L100.0500, L501.9520 #### [facility] [address] [place], [address] MCH (RBC) [Entitic mass] 29.6 pg Normal 27.0-32.0 [facility] Comment on above: Performed By: #### L 500.4100, L506.1001, L500.4050, L100.0500, L501.9520 #### [facility] [address] [place], [address] MCHC (RBC) [Mass/Vol] 32.5 g/dL Normal 32-36 [facility] Comment on above: Performed By: #### L 500.4100, L506.1001, L500.4050, L100.0500, L501.9520 #### [facility] [address] [place], [address] MCV (RBC) [Entitic vol] 91.0 fL Normal 81-99 [facility] Comment on above: Performed By: #### L 500.4100, L506.1001, L500.4050, L100.0500, L501.9520 #### [facility] [address] [place], [address] Platelet mean volume (Bld) [Entitic vol] 10.4 fL Normal 6.2-12.0 [facility] Comment on above: Performed By: #### L 500.4100, L506.1001, L500.4050, L100.0500, L501.9520 #### [facility] [address] [place], [address] Platelets (Bld) [#/Vol] 333 10*3/uL Normal 150-450 [facility] Comment on above: Performed By: #### L 500.4100, L506.1001, L500.4050, L100.0500, L501.9520 #### [facility] [address] [place], [address] RBC (Bld) [#/Vol] 4.43 10*6/uL Normal 4.2-5.4 [facility] Comment on above: Performed By: #### L 500.4100, L506.1001, L500.4050, L100.0500, L501.9520 #### [facility] [address] [place], [address] RDW SD 42.6 fl Normal 35.1-43.9 [facility] Comment on above: Performed By: #### L 500.4100, L506.1001, L500.4050, L100.0500, L501.9520 #### [facility] [address] [place], [address] WBC (Bld) [#/Vol] 8.3 10*3/uL Normal 4.4-11.0 [facility] Comment on above: Performed By: #### L 500.4100, L506.1001, L500.4050, L100.0500, L501.9520 #### [facility] [address] [place], [address] Calculated very low density lipoprotein (VLDL) cholesterol measurementOrdered By: Michele Galvan on 03-05-2025 Calculated very low density lipoprotein (VLDL) cholesterol measurement 14 mg/dL 5-40 [facility] Carbon dioxide, total [Moles /volume] in Central venous bloodOrdered By: Michele Galvan on 03-05-2025 CO2 [Moles/Vol] 19.0 mmol/L Low 21.0-32.0 [facility] Chloride assayOrdered By: Charly Galvan on 03-05-2025 Chloride [Moles/Vol] 104 mmol/L 98-108 [facility] Comprehensive Metabolic Prof ilon 03-05-2025 Albumin [Mass/Vol] 4.2 g/dL Normal 3.5-5.0 [facility] Comment on above: Order Comment: TSH Performed By: #### L 500.4100, L506.1001, L500.4050, L100.0500, L501.9520 #### [facility] [address] [place], [address] Albumin/Globulin [Mass ratio] 1.6 {ratio} Normal 0.9-2.4 [facility] Comment on above: Order Comment: TSH Performed By: #### L 500.4100, L506.1001, L500.4050, L100.0500, L501.9520 #### [facility] [address] [place], [address] ALK PHOS 54 U/L Normal 35-104 [facility] Comment on above: Order Comment: TSH Performed By: #### L 500.4100, L506.1001, L500.4050, L100.0500, L501.9520 #### [facility] [address] [place], [address] ALT [Catalytic activity/Vol] 15 U/L Normal <=34 [facility] Comment on above: Order Comment: TSH Performed By: #### L 500.4100, L506.1001, L500.4050, L100.0500, L501.9520 #### [facility] [address] [place], [address] AST [Catalytic activity/Vol] 21 U/L Normal <=31 [facility] Comment on above: Order Comment: TSH Performed By: #### L 500.4100, L506.1001, L500.4050, L100.0500, L501.9520 #### [facility] [address] [place], [address] Bilirubin [Mass/Vol] 0.52 mg/dL Normal 0.00-1.30 [facility] Comment on above: Order Comment: TSH Performed By: #### L 500.4100, L506.1001, L500.4050, L100.0500, L501.9520 #### [facility] [address] [place], [address] BUN/CRE 11.6 RATIO Normal 10-20 [facility] Comment on above: Order Comment: TSH Performed By: #### L 500.4100, L506.1001, L500.4050, L100.0500, L501.9520 #### [facility] [address] [place], [address] Calcium [Mass/Vol] 9.1 mg/dL Normal 7.6-11.0 [facility] Comment on above: Order Comment: TSH Performed By: #### L 500.4100, L506.1001, L500.4050, L100.0500, L501.9520 #### [facility] [address] [place], [address] Chloride [Moles/Vol] 104 mmol/L Normal 98-108 [facility] Comment on above: Order Comment: TSH Performed By: #### L 500.4100, L506.1001, L500.4050, L100.0500, L501.9520 #### [facility] [address] [place], [address] CO2 [Moles/Vol] 19.0 mmol/L Low 21.0-32.0 [facility] Comment on above: Order Comment: TSH Performed By: #### L 500.4100, L506.1001, L500.4050, L100.0500, L501.9520 #### [facility] [address] [place], [address] Creatinine [Mass/Vol] 0.80 mg/dL Normal 0.70-1.20 [facility] Comment on above: Order Comment: TSH Performed By: #### L 500.4100, L506.1001, L500.4050, L100.0500, L501.9520 #### [facility] [address] [place], [address] GAP 17 High 5-15 [facility] Comment on above: Order Comment: TSH Performed By: #### L 500.4100, L506.1001, L500.4050, L100.0500, L501.9520 #### [facility] [address] [place], [address] GFR/1.73 sq M.predicted among non-blacks MDRD (S/P/Bld) [Vol rate/Area] 92 mL/min/{1.73_m2} Normal >60 [facility] Comment on above: Order Comment: TSH Result Comment: mL/m in/1.73m2 CKD-EPI Creatinine Equation (2020) Performed By: #### L 500.4100, L506.1001, L500.4050, L100.0500, L501.9520 #### [facility] [address] [place], [address] Globulin (S) [Mass/Vol] 2.6 g/dL Normal 2.2-4.2 [facility] Comment on above: Order Comment: TSH Performed By: #### L 500.4100, L506.1001, L500.4050, L100.0500, L501.9520 #### [facility] [address] [place], [address] Glucose [Mass/Vol] 84 mg/dL Normal 70-99 [facility] Comment on above: Order Comment: TSH Performed By: #### L 500.4100, L506.1001, L500.4050, L100.0500, L501.9520 #### [facility] [address] [place], [address] Potassium [Moles/Vol] 3.4 mmol/L Normal 3.3-5.1 [facility] Comment on above: Order Comment: TSH Performed By: #### L 500.4100, L506.1001, L500.4050, L100.0500, L501.9520 #### [facility] [address] [place], [address] Sodium [Moles/Vol] 139 mmol/L Normal 133-145 [facility] Comment on above: Order Comment: TSH Performed By: #### L 500.4100, L506.1001, L500.4050, L100.0500, L501.9520 #### [facility] [address] [place], [address] T PROT 6.8 g/dL Normal 5.9-8.4 [facility] Comment on above: Order Comment: TSH Performed By: #### L 500.4100, L506.1001, L500.4050, L100.0500, L501.9520 #### [facility] [address] [place], [address] Urea nitrogen [Mass/Vol] 9 mg/dL Normal 4-19 [facility] Comment on above: Order Comment: TSH Performed By: #### L 500.4100, L506.1001, L500.4050, L100.0500, L501.9520 #### [facility] [address] [place], [address] Erythrocyte distribution wid th ratioOrdered By: Michele Galvan on 03-05-2025 Erythrocyte distribution width (RBC) [Ratio] 12.9 % 11.6-14.6 [facility] Erythrocyte distribution wid th standard deviationOrdered By: Michele Galvan on 03-05-2025 Erythrocyte distribution width (RBC) [Ratio] 42.6 fl 35.1-43.9 [facility] Glomerular filtration rate ( GFR) estimation/1.73 sq m using serum, plasma, or whole bOrdered By: Michele Galvan on 03-05-2025 GFR/1.73 sq M.predicted among non-blacks MDRD (S/P/Bld) [Vol rate/Area] 92 mL/min/{1.73_m2} >60 [facility] Comment on above: mL/min/1.73m2 CKD-EP I Creatinine Equation (2020) Hematocrit Auto (Bld) [Volum e fraction]Ordered By: Michele Galvan on 03-05-2025 Hematocrit (Bld) [Volume fraction] 40.3 % 37-47 [facility] Hemoglobin measurementOrdere d By: Michele Galvan on 03-05-2025 Hemoglobin (Bld) [Mass/Vol] 13.1 g/dL 12.0-15.0 [facility] LDL calc ser/plasOrdered By: Michele Galvan on 03-05-2025 Cholesterol in LDL [Mass/Vol] 111 mg/dL [facility] Comment on above: Tgzrwnpmnb=552-050 m g/dL & Higher Wkjx=198 mg/dL or greaterFriedwald Equation for LDL-C Laboratory - Chemistry and C hemistry - challengeOrdered By: Michele Galvan on 03-05-2025 AST [Catalytic activity/Vol] 21 U/L <32 [facility] Lipid Profileon 03-05-2025 CHOL:HDL 2.58 Normal [facility] Comment on above: Performed By: #### L 500.4100, L506.1001, L500.4050, L100.0500, L501.9520 #### [facility] [address] [place], [address] Cholesterol [Mass/Vol] 203 mg/dL High <=200 [facility] Comment on above: Result Comment: Chol esterol level, Desirable <200 mg/dL Borderline high cholesterol 200-239 mg/dL High cholesterol >=240 mg/dL Recommendations of the NCEP Adult Treatment Panel for the following risk-cutoff thresholds for the [place] population. Performed By: #### L 500.4100, L506.1001, L500.4050, L100.0500, L501.9520 #### [facility] [address] [place], [address] Cholesterol in HDL [Mass/Vol] 79 mg/dL Normal [facility] Comment on above: Result Comment: [place] onal Cholesterol Education Program (NCEP) guidelines: <40 mg/dL: Low HDL-cholesterol (major risk factor for CHD) >= 60 mg/dL: High HDL-cholesterol (negative risk factor for CHD) HDL-cholesterol is affected by a number of factors, e.g. smoking, exercise, hormones, sex and age. Performed By: #### L 500.4100, L506.1001, L500.4050, L100.0500, L501.9520 #### [facility] [address] [place], [address] Cholesterol in LDL [Mass/Vol] 111 mg/dL Normal [facility] Comment on above: Result Comment: Bord qazupl=305-863 mg/dL Higher Zeow=401 mg/dL or greater Friedwald Equation for LDL-C Performed By: #### L 500.4100, L506.1001, L500.4050, L100.0500, L501.9520 #### [facility] [address] [place], [address] Cholesterol in VLDL [Mass/Vol] 14 mg/dL Normal 5-40 [facility] Comment on above: Performed By: #### L 500.4100, L506.1001, L500.4050, L100.0500, L501.9520 #### [facility] [address] [place], [address] Triglyceride [Mass/Vol] 68 mg/dL Normal [facility] Comment on above: Result Comment: The drugs N-Acetylcysteine and Metamizole may falsely depress this assay. Normal range: <150 mg/dL Borderline High: 150-199 mg/dL High: 200-499 mg/dL Very High: >500 mg/dL Performed By: #### L 500.4100, L506.1001, L500.4050, L100.0500, L501.9520 #### [facility] [address] [place], [address] MCV (mean corpuscular volume ) determinationOrdered By: Michele Galvan on 03-05-2025 MCV (RBC) [Entitic vol] 91.0 fL 81-99 [facility] Mean corpuscular hemoglobin (MCH) determinationOrdered By: Michele Galvan on 03-05-2025 MCH (RBC) [Entitic mass] 29.6 pg 27.0-32.0 [facility] Mean corpuscular hemoglobin concentration (MCHC) determinationOrdered By: Michele Galvan on 03-05-2025 MCHC (RBC) [Mass/Vol] 32.5 g/dL 32-36 [facility] Mean platelet volume determi nationOrdered By: Michele Galvan on 03-05-2025 Platelet mean volume (Bld) [Entitic vol] 10.4 fL 6.2-12.0 [facility] Platelet countOrdered By: Charly Galvan on 03-05-2025 Platelets (Bld) [#/Vol] 333 10*3/uL 150-450 [facility] Potassium measurement (mass/ volume)Ordered By: Michele Galvan on 03-05-2025 Potassium (Unsp spec) [Mass/Vol] 3.4 mmol/L 3.3-5.1 [facility] RBC Auto (Bld) [#/Vol]Ordere d By: Michele Galvan on 03-05-2025 RBC (Bld) [#/Vol] 4.43 10*6/uL 4.2-5.4 [facility] Screening total cholesterol/ high density lipoprotein (HDL) cholesterol ratioOrdered By: Michele Galvan on 03-05-2025 Cholesterol.total/Choles terol in HDL [Mass ratio] 2.58 {ratio} [facility] Serum creatinine measurement (mass/volume)Ordered By: Michele Galvan on 03-05-2025 Creatinine [Mass/Vol] 0.80 mg/dL 0.70-1.20 [facility] Serum globulin measurementOr dered By: Michele Galvan on 03-05-2025 Globulin (S) [Mass/Vol] 2.6 g/dL 2.2-4.2 [facility] Serum glucose measurement (m ass/volume)Ordered By: Michele Galvan on 03-05-2025 Glucose [Mass/Vol] 84 mg/dL 70-99 [facility] Serum or plasma alanine garcia otransferase (ALT) measurementOrdered By: Michele Galvan on 03-05-2025 ALT [Catalytic activity/Vol] 15 U/L <35 [facility] Serum or plasma albumin prashanth urement (mass/volume)Ordered By: Michele Galvan on 03-05-2025 Albumin [Mass/Vol] 4.2 g/dL 3.5-5.0 [facility] Serum or plasma albumin/glob ulin mass ratioOrdered By: Michele Galvan on 03-05-2025 Albumin/Globulin [Mass ratio] 1.6 {ratio} 0.9-2.4 [facility] Serum or plasma alkaline debbi sphatase measurementOrdered By: Michele Galvan on 03-05-2025 ALP [Catalytic activity/Vol] 54 U/L 35-104 [facility] Serum or plasma calcium prashanth urement (mass/volume)Ordered By: Michele Galvan on 03-05-2025 Calcium [Mass/Vol] 9.1 mg/dL 7.6-11.0 [facility] Serum or plasma cholesterol in HDL measurement (mass/volume)Ordered By: Michele Galvan on 03-05-2025 Cholesterol in HDL [Mass/Vol] 79 mg/dL >40 [facility] Comment on above: National Cholesterol Education Program (NCEP) guidelines:<40 mg/dL: Low HDL-cholesterol (major risk factor for CHD)>= 60 mg/dL: High HDL-cholesterol (negative risk factor for CHD)HDL-cholesterol is affected by a number of factors, e.g. smoking, exercise, hormones, sex and age. Serum or plasma cholesterol measurement (mass/volume)Ordered By: Michele Galvan on 03-05-2025 Cholesterol [Mass/Vol] 203 mg/dL High <201 [facility] Comment on above: Cholesterol level, D esirable <200 mg/dLBorderline high cholesterol 200-239 mg/dLHigh cholesterol >=240 mg/dLRecommendations of the NCEP Adult Treatment Panel for the following risk-cutoff thresholds for the [place] population. Serum or plasma urea nitroge n measurement (mass/volume)Ordered By: Michele Galvan on 03-05-2025 Urea nitrogen [Mass/Vol] 9 mg/dL 4-19 [facility] Sodium levelOrdered By: Tomas Galvan on 03-05-2025 Sodium [Moles/Vol] 139 mmol/L 133-145 [facility] TSH DL <= 0.005 mIU/L QnOrde red By: Michele Galvan on 03-05-2025 TSH Qn 1.560 uIU/mL 0.300-4.200 [facility] Thyroid Stim Hormone (TSH)on 03-05-2025 TSH 1.560 uIU/mL Normal 0.300-4.200 [facility] Comment on above: Performed By: #### L 500.4100, L506.1001, L500.4050, L100.0500, L501.9520 #### [facility] [address] [place], [address] Total proteinOrdered By: Ryanne Galvan on 03-05-2025 Protein [Mass/Vol] 6.8 g/dL 5.9-8.4 [facility] Triglycerides measurementOrd ered By: Michele Galvan on 03-05-2025 Triglyceride [Mass/Vol] 68 mg/dL <199 [facility] Comment on above: The drugs N-Acetylcy steine and Metamizole may falsely depress this assay. Normal range: <150 mg/dLBorderline High: 150-199 mg/dLHigh: 200-499 mg/dLVery High: >500 mg/dL Vitamin D,25 Hydroxyon 03-05 Vitamin D 25-OH 35.7 ng/mL Normal 30-100 [facility] Comment on above: Result Comment: Maggie min D Status Deficiency: <20 ng/mL (50nmol/L) Insufficiency: 20-30 ng/mL (50-75 nmol/L) Sufficiency: 30-100 ng/mL (75-250 nmol/L) Toxicity: >100 ng/mL (>250 nmol/L) Performed By: #### L 500.4100, L506.1001, L500.4050, L100.0500, L501.9520 #### [facility] [address] [place], [address] White blood cell (WBC) count Ordered By: Michele Galvan on 03-05-2025 WBC (Bld) [#/Vol] 8.3 10*3/uL 4.4-11.0 [facility] OPERATIVE NOon 02-25-2025 OPERATIVE NO HNO ID: [id number] Author: VINI MCDONALD MD Service: Pain Management Author Type: Physician Type: Operative Report Filed: 02/25/2025 15:16 Note Text: ---- Summary: TPI ---- PATIENT: Capri Aguilar SURGEON: Primary: Vini Mcdonald [...] bupivacaine; distributed ~equally at each site. [facility] NURSING PROGon 02-23-2025 NURSING PROG HNO ID: [id number] Author: GAIL CROOKS MA Service: ? Author Type: Recapper Type: Nursing Progress Note Filed: 02/23/2025 15:53 Note Text: TPI Injections Pt does not take any blood thinners Pt is not diabetic Pt is not on any antibiotics Pt did not take any sedation Gail Crooks MA February 23, 2025 3:53 PM [facility] OPERATIVE NOon 02-23-2025 OPERATIVE NO HNO ID: [id number] Author: VINI MCDONALD MD Service: Pain Management Author Type: Physician Type: Operative Report Filed: 02/23/2025 17:04 Note Text: ---- Summary: TPI ---- PATIENT: Capri Cris Aguilar SURGEON: Primary: Vini Mcdonald MD : 1975 DATE OF SURGERY: February 23, 2025 PRE-OP Diagnosis: Myofascial pain syndrome [M79.18] POST-OP Diagnosis: Same Procedure: Procedure(s): INJECTION TRIGGER POINT THREE OR MORE MUSCLES (neck/upper back x 1 visit) Anesthesia Type: Local The following procedure was performed in the office today: Trigger Point Injection(s): (85217) -Informed consent was obtained and all patient [...] 0.25% bupivacaine; distributed ~equally at each site[facility] (JENNIE) ---- AGUILAR,CAPRI Lynch ([id number]) 1975 F Date Time Provider Department 01/05/25 2:45 PM ERIKA CONWAY During your visit today, we recorded the following information about you: Pulse Respiration Blood pressure 91/minute 16/minute 126/80 Erika Conway PA-C 01/05/2025 3:17 PM Signed Subjective Capri Lynch Lauren is a 49 year old female. The [...] 7 7 Pain Location Back-Lower Back-Lower Description Aching;Throbbing;So re;Tightness;Stiffn ess Aching;Throbbing;So re;Stiffness Pain Assessment Assessment Reassessment 09/18/2024 01/05/2025 Pain [...] Acute gastritis without mention of hemorrhage CHARCOT Cefkorf-Wszso-ihysf disease, deafness, and intellectual disability syndrome (HCC) Eczema Darin-Danlos syndrome (HCC) Fibromyalgia GERD (gastroesophageal reflux disease) Loss of weight Marfan syndrome (HCC) Mitochondrial myopathy Mitochondrial myopathy Mitral valve disorders(424.0) Murmur Muscular dystrophies and other myopathies Other acne Persistent vomiting PAST SURGICAL HISTORY Procedure Laterality Date EAR TUBES HX ESOPHAGOGASTRODUODE NOSCOPY TRANSORAL DIAGNOSTIC 01/04/03 EGD EXTRACTION, ERUPTED TOOTH [...] Unknown) SpO2 99% (more content not included)... [facility] OPERATIVE NOon 01-05-2025 OPERATIVE NO HNO ID: [id number] Author: VINI MCDONALD MD Service: Pain Management Author Type: Anesthesiologist Type: Operative Report Filed: 01/05/2025 15:28 Note Text: ---- Summary: Botox Inj ---- PATIENT: Capri Aguilar SURGEON: Primary: Vini Mcdonald [...] Botox Injection PROCEDURE: Botox injection CPT code: 28102 PREPROCEDURE DIAGNOSIS: Migraine headache POSTPROCEDURE DIAGNOSIS: same [...] was prepped with alcohol. BOTOX Lot Number: [id number] BOTOX was reconstituted to a concentration of 5 U/0.1mL. The following injections were made using a 30G needle: 5 Botox units to the procerus muscle 5 Botox units to the right hot air furnace installer and repairer supercilii muscle 5 Botox units to the left hot air furnace installer and repairer supercilii muscle 30 Botox units to the [...] procedure well with no complications noted. [facility] OPERATIVE NOon 12-31-2024 OPERATIVE NO HNO ID: [id number] Author: VINI MCDONALD MD Service: Pain Management Author Type: Anesthesiologist Type: Operative Report Filed: 12/31/2024 16:14 Note Text: ---- Summary: TPI ---- PATIENT: Capri Lynch Aguilar SURGEON: Primary: Vini [...] bupivacaine; distributed ~equally at each site. 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] 12/08/2021 Chronic fatigue [R53.82] 10/22/1997 GERD (gastroesophageal reflux disease) [K21.9] 08/14/1997 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] 08/14/1997 Palpitations [R00.2] 08/11/2010 Orthostatic hypotension [I95.1] 02/19/2013 POTS (postural orthostatic tachycardia syndrome*08/14/1997 retirement (current) use of opiate analgesic [Z7*02/23/2022 Other chronic pain [G89.29] 05/07/2022 Encounter Status:Closed by ANA KING on 12/30/24 [facility] OPERATIVE NOon 12-29-2024 OPERATIVE NO HNO ID: [id number] Author: VINI MCDONALD MD Service: Pain Management Author Type: Anesthesiologist Type: Operative Report Filed: 12/29/2024 15:59 Note Text: ---- Summary: TPI ---- PATIENT: Capri Lynch Aguilar SURGEON: Primary: Vini [...] bupivacaine; distributed ~equally at each site. [facility] Derian 12-18-2024 [facility]AL[facility] Telephone ([facility]) ---- CAPRI AGUILAR ([id number]) 1975 F Date Time Provider Department 12/18/24 ERIKA CONWAY [facility] During your visit today, we recorded the [...] Noted Resolved ASA CLASS III [1003] 02/09/2003 Umpogaf-Vvuqp-Jxegq disease [G60.0] 02/07/2004 IDIO PERIPH NEURPTHY NEC [...] 08/09/2008 Other chronic dermatitis due to solar radiation*10/14/2012 DYSHIDROSIS [L30.1] 08/09/2008 Pyoderma, unspecified [L08.0] 08/09/2008 [...] aura and w*12/08/2021 Marfan's syndrome [Q87.40] 12/08/2021 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] 12/08/2021 Chronic fatigue [R53.82] 10/22/1997 GERD (gastroesophageal reflux disease) [K21.9] 08/14/1997 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] 08/14/1997 Palpitations [R00.2] 08/11/2010 Orthostatic hypotension [I95.1] 02/19/2013 POTS (postural orthostatic tachycardia syndrome*08/14/1997 intermediate frame tender (current) use of opiate analgesic [Z7*02/23/2022 Other chronic pain [G89.29] 05/07/2022 Encounter Status:Closed by SHARYN PAGE on 12/18/24 [facility] Derian 12-09-2024 VISHALN Telephone ([facility]) ---- CAPRI [id number]) 1975 F Date Time Provider Department 12/09/24 ERIKA CONWAY During your visit today, we recorded the following information about you: Ana King 12/09/2024 3:14 PM Signed Capri Diana called and would like to schedule 12/29 TPI's neck, 12/31 TPI's lumbar and Botox 01/05 all at 3:30 PM. Please advise. Ana Harmon December 09, 2024 3:14 PM Erika Conway [...] for Visit: Requesting procedures [Other] Primary Visit Diagnosis:Myofascia l pain syndrome [M79.18] Other Visit Diagnoses:Fibromyal jessenia [M79.7] Migraine, unspecified, without mention of intractable migraine without mention of status migrainosus [G43.909] Migraine without aura and without status migrainosus, not intractable [G43.009] 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 [G43.711] Order(s):SURGICAL REQUEST - ELECTIVE (01/2020) [[id number]] Order #: [id number]: 1 SURGICAL REQUEST - ELECTIVE (01/2020) [[id number]] Order #: [id number]: 1 SURGICAL REQUEST - ELECTIVE (01/2020) [[id number]] Order #: [id number]: 1 Prescriptions as of 12/09/2024 - oxyCODONE [...] Noted Resolved ASA CLASS III [1003] 02/09/2003 Zooqofs-Wipvz-Cgkil disease [G60.0] 02/07/2004 IDIO PERIPH NEURPTHY NEC [...] 08/09/2008 Other chronic dermatitis due to solar radiation*10/14/2012 DYSHIDROSIS [L30.1] 08/09/2008 Pyoderma, unspecified [L08.0] 08/09/2008 [...] aura and w*12/08/2021 Marfan's syndrome [Q87.40] 12/08/2021 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] 08/14/1997 Palpitations [R00.2] 08/11/2010 Orthostatic hypotension [I95.1] 02/19/2013 POTS (postural orthostatic tachycardia syndrome*08/14/1997 retirement (current) use of opiate analgesic [Z7*02/23/2022 Other chronic pain [G89.29] 05/07/2022 Encounter Status:Closed by ANA KING on 12/09/24 [facility] OPERATIVE NOon 11-05-2024 OPERATIVE NO HNO ID: [id number] Author: VINI MCDONALD MD Service: Pain Management Author Type: Anesthesiologist Type: Operative Report Filed: 11/05/2024 15:43 Note Text: ---- Summary: TPI ---- PATIENT: Capri Aguilar SURGEON: Primary: Vini Mcdonald MD : 1975 DATE OF SURGERY: November 05, 2024 PRE-OP Diagnosis: Myofascial pain syndrome [M79.18] POST-OP Diagnosis: Same Procedure: Procedure(s): INJECTION TRIGGER POINT THREE OR MORE MUSCLES Anesthesia Type: Local The following procedure was performed in the office today: Trigger Point Injection(s): (35180) -Informed consent was obtained and all patient [...] bupivacaine; distributed equally at each site. [facility] OPERATIVE NOon 11-03-2024 OPERATIVE NO HNO ID: [id number] Author: VINI MCDONALD MD Service: Pain Management Author Type: Anesthesiologist Type: Operative Report Filed: 11/03/2024 15:59 Note Text: ---- Summary: TPI ---- PATIENT: Capri Lynch Aguilar SURGEON: Primary: Vini Mcdonald MD : 1975 DATE OF SURGERY: November 03, 2024 PRE-OP Diagnosis: Myofascial pain syndrome [M79.18] Fibromyalgia [M79.7] POST-OP Diagnosis: Same Procedure: Procedure(s): INJECTION TRIGGER POINT THREE OR MORE MUSCLES Anesthesia Type: Local The following procedure was performed in the office today: Trigger Point Injection(s): (22689) -Informed consent was obtained and all patient [...] bupivacaine; distributed equally at each site. [facility] OPERATIVE NOon 10-06-2024 OPERATIVE NO HNO ID: [id number] Author: VINI MCDONALD MD Service: Pain Management Author Type: Anesthesiologist Type: Operative Report Filed: 10/06/2024 16:07 Note Text: ---- Summary: Botox Injections ---- PATIENT: Capri Lynch Aguilar SURGEON: Primary: Vini [...] Botox Injection PROCEDURE: Botox injection CPT code: 29391 PREPROCEDURE DIAGNOSIS: Migraine headache POSTPROCEDURE DIAGNOSIS: same [...] was prepped with alcohol. BOTOX Lot Number: [id number] BOTOX was reconstituted to a concentration of 5 U/0.1mL. The following injections were made using a 30G needle: 5 Botox units to the procerus muscle 5 Botox units to the right hot air furnace installer and repairer supercilii muscle 5 Botox units to the left hot air furnace installer and repairer supercilii muscle 30 Botox units to the [...] procedure well with no complications noted. [facility] CNOVon 09-18-2024 CNOV Office Visit (PAMMJK) ---- CAPRI AGUILAR ([id number]) 1975 F Date Time Provider Department 09/18/24 1:30 PM ERIKA CONWAY During your visit today, we recorded the following information about you: Pulse Respiration Blood pressure Weight 110/minute 18/minute 137/88 47.2 kg Antonella Valladares RN 09/18/2024 2:14 PM Signed Oxycodone am Med helps pain Denies side effects Last uds-09/18/24 09/10/24-TPI Erika Conway PA-C 09/18/2024 2:14 PM Signed This note was created using [employer]. Subjective Capri Aguilar is a 48 year [...] 6 Pain Location Back-Lower Generalized Description Aching;Sore Aching;Numbness;Pre ssure;Radiating;Sor e;Stiffness;Tendern ess;Tightness Duration Amount of Time 21 Duration Units Years Frequency Continuous Intervention/Comfor t measure Medication;Other: See comment Comments Trigger point [...] Acute gastritis without mention of hemorrhage CHARCOT Voosxro-Capzf-viyqb disease, deafness, and intellectual disability syndrome (HCC) Eczema Darin-Danlos syndrome (HCC) Fibromyalgia GERD (gastroesophageal reflux disease) Loss of weight Marfan syndrome (HCC) Mitochondrial myopathy Mitochondrial myopathy Mitral valve disorders(424.0) Murmur Muscular dystrophies and other myopathies Other acne Persistent vomiting PAST SURGICAL HISTORY Procedure Laterality Date EAR TUBES HX ESOPHAGOGASTRODUODE NOSCOPY TRANSORAL DIAGNOSTIC 01/04/03 EGD EXTRACTION, ERUPTED TOOTH [...] Systems Constitutional (more content not included)... [facility] OPERATIVE NOon 09-10-2024 OPERATIVE NO HNO ID: [id number] Author: VINI MCDONALD MD Service: Pain Management Author Type: Anesthesiologist Type: Operative Report Filed: 09/10/2024 15:42 Note Text: ---- Summary: TPI ---- PATIENT: Capri Aguilar SURGEON: Primary: Vini Mcdonald MD : 1975 DATE OF SURGERY: September 10, 2024 PRE-OP Diagnosis: Myofascial pain syndrome [M79.18] POST-OP Diagnosis: Same Procedure: Procedure(s): INJECTION TRIGGER POINT THREE OR MORE MUSCLES (lower back) Anesthesia Type: Local The following procedure was performed in the office today: Trigger Point Injection(s): (40710) -Informed consent was obtained and all patient [...] bupivacaine; distributed equally at each site. [facility] OPERATIVE NOon 09-08-2024 OPERATIVE NO HNO ID: [id number] Author: VINI MCDONALD MD Service: Pain Management Author Type: Anesthesiologist Type: Operative Report Filed: 09/08/2024 16:26 Note Text: ---- Summary: TPI ---- PATIENT: Capri Aguilar SURGEON: Primary: Vini Mcdonald [...] bupivacaine; distributed equally at each site. [facility] 36 08-06-2024 36 Needs appt [facility] OPERATIVE NOon 07-16-2024 OPERATIVE NO HNO ID: [id number] Author: VINI MCDONALD MD Service: Pain Management Author Type: Anesthesiologist Type: Operative Report Filed: 07/16/2024 15:29 Note Text: ---- Summary: TPI ---- PATIENT: Capri Lynch Aguilar SURGEON: Primary: Vini Mcdonald MD : 1975 DATE OF SURGERY: July 16, 2024 PRE-OP Diagnosis: Myofascial pain syndrome [M79.18] POST-OP Diagnosis: Same Procedure: Procedure(s): INJECTION TRIGGER POINT THREE OR MORE MUSCLES (Lower) Anesthesia Type: Local The following procedure was performed in the office today: Trigger Point Injection(s): (58704) -Informed consent was obtained and all patient [...] bupivacaine; distributed equally at each site. [facility] OPERATIVE NOon 07-14-2024 OPERATIVE NO HNO ID: [id number] Author: VINI MCDONALD MD Service: Pain Management Author Type: Anesthesiologist Type: Operative Report Filed: 07/14/2024 15:18 Note Text: ---- Summary: TPI ---- PATIENT: Capri Lynch Aguilar SURGEON: Primary: Vini Mcdonald MD : 1975 DATE OF SURGERY: July 14, 2024 PRE-OP Diagnosis: Myofascial pain syndrome [M79.18] POST-OP Diagnosis: Same Procedure: Procedure(s): INJECTION TRIGGER POINT THREE OR MORE MUSCLES (upper back) Anesthesia Type: Local The following procedure was performed in the office today: Trigger Point Injection(s): (29218) -Informed consent was obtained and all patient [...] 0.25% bupivacaine; distributed equally at each site. [facility] OPERATIVE NOon 07-07-2024 OPERATIVE NO HNO ID: [id number] Author: VINI MCDONALD MD Service: Pain Management Author Type: Anesthesiologist Type: Operative Report Filed: 07/07/2024 16:55 Note Text: ---- Summary: Botox Injections ---- PATIENT: Capri Cris Aguilar SURGEON: Primary: Vini Mcdonald MD : 1975 DATE OF SURGERY: July 07, 2024 PRE-OP Diagnosis: Migraine, unspecified, without mention of intractable migraine without mention of status migrainosus [G43.909] POST-OP Diagnosis: Same Procedure: Procedure(s): CHEMODENERVATION OF MUSCLE (S), MUSCLE (S) INNERVATED BY FACIAL NERVE Anesthesia Type: Local The following procedure was performed in the office today: Botox Injection PROCEDURE: Botox injection CPT code: 73661 PREPROCEDURE DIAGNOSIS: Migraine headache POSTPROCEDURE DIAGNOSIS: same ANESTHESIA: none PROCEDURE REPORT: The risks and benefits of the procedure were explained to the patient and all questions were answered. The patient gave consent to proceed with the procedure. The skin was prepped with alcohol. BOTOX Lot Number: [id number] BOTOX was reconstituted to a concentration of 5 U/0.1mL. 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 [facility] CNOVon 06-23-2024 CNOV Office Visit (KAORLINAJK) ---- CAPRI AGUILAR ([id number]) 1975 F Date Time Provider Department 06/23/24 1:00 PM ERIKA CONWAY During your visit today, we recorded the following information about you: Pulse Respiration Blood pressure 90/minute 16/minute 119/74 Erika Conway PA-C 06/23/2024 1:47 PM Addendum This note was created using [employer]. 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 [facility] OPERATIVE NOon 05-19-2024 OPERATIVE NO HNO ID: [id number] Author: VINI MCDONALD MD Service: Pain Management Author Type: Anesthesiologist Type: Operative Report Filed: 05/19/2024 15:42 Note Text: ---- Summary: TPI ---- PATIENT: Capri Lynch Aguilar SURGEON: Primary: Vini [...] bupivacaine; distributed equally at each site. [facility] OPERATIVE NOon 05-12-2024 OPERATIVE NO HNO ID: [id number] Author: VINI MCDONALD MD Service: Pain Management Author Type: Anesthesiologist Type: Operative Report Filed: 05/12/2024 15:48 Note Text: ---- Summary: TPI ---- PATIENT: Capri Lynch Aguilar SURGEON: Primary: Vini [...] bupivacaine; distributed equally at each site. [facility] Basophil percentageOrdered B y: Mohit Henley on 08-08-2023 Bilirubin [Mass/Vol] 0.70 mg/dL 0.20-1.00 [facility] Comment on above: For patients on eltr ombopag therapy, use of [facility] [place] TBIL is not recommended. Chloride [Moles/Vol] 110 mmol/L 98-107 [facility] Glucose [Mass/Vol] 82 mg/dL 74-106 [facility] Hemoglobin (Bld) [Mass/Vol] 13.9 g/dL 12.0-15.0 [facility] Potassium [Moles/Vol] 3.3 mmol/L 3.5-5.1 [facility] Protein [Mass/Vol] 7.8 g/dL 6.4-8.2 [facility] Sodium [Moles/Vol] 141 mmol/L 136-145 [facility] WBC (Bld) [#/Vol] 7.8 10*3/uL 4.4-11.0 [facility] Determination of erythrocyte mean corpuscular volume (MCV)Ordered By: Mohit Henley on 08-08-2023 MCV (RBC) [Entitic vol] 91.6 fL 81-99 [facility] Erythrocyte distribution wid th ratioOrdered By: Mohit Henley on 08-08-2023 Erythrocyte distribution width (RBC) [Ratio] 12.6 % 11.6-14.6 [facility] Erythrocyte distribution wid th standard deviationOrdered By: Mohit Henley on 08-08-2023 Erythrocyte distribution width (RBC) [Entitic vol] 42.4 fL 35.1-43.9 [facility] Hematocrit Auto (Bld) [Volum e fraction]Ordered By: Mohit Henley on 08-08-2023 Hematocrit (Bld) [Volume fraction] 43.9 % 37-47 [facility] Laboratory - Chemistry and C hemistry - challengeOrdered By: Mohit Henley on 08-08-2023 Albumin/Globulin [Mass ratio] 1.1 {ratio} 0.9-2.4 [facility] ALP [Catalytic activity/Vol] 72 U/L 45-117 [facility] ALT [Catalytic activity/Vol] 18 U/L 13-56 [facility] CO2 [Moles/Vol] 25.0 mmol/L 21.0-32.0 [facility] Globulin (S) [Mass/Vol] 3.7 g/dL 2.2-4.2 [facility] Urea nitrogen/Creatinine [Mass ratio] 10.0 mg/mg 10-20 [facility] Laboratory - Hematology and Cell countsOrdered By: Mohit Henley on 08-08-2023 MCH (RBC) [Entitic mass] 29.0 pg 27.0-32.0 [facility] MCHC (RBC) [Mass/Vol] 31.7 g/dL 32-36 [facility] Platelet mean volume (Bld) [Entitic vol] 10.1 fL 6.2-12.0 [facility] Platelets (Bld) [#/Vol] 352 10*3/uL 150-450 [facility] No Panel InformationOrdered By: Mohit Henley on 08-08-2023 Estimated GFR (MDRD) Amer 87 mL/min >60 [facility] Comment on above: GFR Calc Estimated GFR (MDRD) Non-Af Amer 72 mL/min >60 [facility] Comment on above: Non- GFR Calc RBC Auto (Bld) [#/Vol]Ordere d By: Mohit Shepherdur on 08-08-2023 RBC (Bld) [#/Vol] 4.79 10*6/uL 4.2-5.4 [facility] Serum or plasma calcium prashanth urement (mass/volume)Ordered By: Mohit Henley on 08-08-2023 Calcium [Mass/Vol] 9.7 mg/dL 8.5-10.1 [facility] Serum or plasma creatinine m easurement (mass/volume)Ordered By: Mohit Henley on 08-08-2023 Creatinine [Mass/Vol] 0.90 mg/dL 0.55-1.02 [facility] Comment on above: The validity of the calculated GFR & GFRAA in patients over 70 years has not been determined. Clinical correlation is essential. Serum or plasma urea nitroge n measurement (mass/volume)Ordered By: Mohit Henley on 08-08-2023 Urea nitrogen [Mass/Vol] 9 mg/dL 7-18 [facility] Thin prep Papanicolaou smear with manual screeningOrdered By: Mohit Henley on 08-08-2023 Thin prep Papanicolaou smear with manual screening 4.1 g/dL 3.2-5.0 [facility] Thin prep Papanicolaou smear with manual screening 18 U/L 15-37 [facility] Thin prep Papanicolaou smear with manual screening 6 5-15 [facility] 6-ACETYLMORPHINon 11-03-2018 6-JULIOCESAR TOXASSURE Negative Normal () [facility] Comment on above: Order Comment: Rasheed Harvey Performed By: #### L 600.38255, L600.91078 #### [facility] [address] [place] [id number] # [phone] CONFIRMATION 6M Not Detected Normal () [facility] Comment on above: Order Comment: Rasheed Harvey Result Comment: INFC E Result Units: ng/mg creat Testing Threshold: 10 ng/mL This test was developed and its performance characteristics determined by [facility]. It has not been cleared or approved by the Food and Drug Administration. Performed At: [email or web address] [address] [id number] [facility] [id number] Performed By: #### L 600.00998, L600.59178 #### [facility] [address] [place] [address] # [phone] TOXASSURE COMPRon 11-03-2018 TOXASSURE COMPR FINAL Normal () [facility] Comment on above: Order Comment: Campu s: M Result Comment: ======= TOXASSURE COMP DRUG ANALYSIS,UR 6-Acetylmorphine,ToxAssure Add CREATININE,URINE ======= Test Result Flag Units Drug Present Oxycodone >4902 ng/mg creat Oxymorphone 1525 ng/mg creat Noroxycodone >4902 ng/mg creat Noroxymorphone >4902 ng/mg creat Sources of oxycodone are scheduled prescription medications. Oxymorphone, noroxycodone, and noroxymorphone are expected metabolites of oxycodone. Oxymorphone is also available as a scheduled prescription medication. ======= Test Result Flag Units Ref Range Creatinine 204 mg/dL >=20 ======= Declared Medications: Medication list was not provided. ======= For clinical consultation, please call . 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 Left ventricular Ejection fraction 55 % Invalid Interpretation Code [facility] Work Phone: [phone] Replaced Document: Tana Villareal CG Observationson 01-09-2016 electrocardiogram interpretation Sinus Rhythm WITHIN NORMAL LIMITS Invalid Interpretation Code [facility] Work Phone: [phone] GE use only - for [employer] import when terms are not otherwise specified 391 ms Invalid Interpretation Code [facility] Work Phone: [phone] Heart rate 86 /min Invalid Interpretation Code [facility] Work Phone: [phone] P wave axis, electrocardiogram 61 deg Invalid Interpretation Code [facility] Work Phone: [phone] NH interval, electrocardiogram 128 ms Invalid Interpretation Code [facility] Work Phone: [phone] QRS axis, electrocardiogram 47 deg Invalid Interpretation Code [facility] Work Phone: [phone] QRS duration, electrocardiogram 94 ms Invalid Interpretation Code [facility] Work Phone: [phone] QT interval, electrocardiogram new path ms Invalid Interpretation Code [facility] Work Phone: [phone] T wave axis, electrocardiogram 32 deg Invalid Interpretation Code [facility] Work Phone: Office Visiton 06-24-2015 Tobacco use status CPHS Never smoker Invalid Interpretation Code [facility] Work Phone: Office Visit: MMMon 07-07-19 15 cardiac risk group A Invalid Interpretation Code [facility] Work Phone: General cardiovascular disease 10Y risk [#] [facility]er[employer]D'Agostc[facility] Not enough information Invalid Interpretation Code [facility] Work Phone: [phone] Tobacco smoking status Never Invalid Interpretation Code [facility] Work Phone: [phone] 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 Left ventricular Ejection fraction 55 % Invalid Interpretation Code [facility] Work Phone: Replaced Document: Tana Villareal CG Observationson 08-14-2012 QT interval/QT interval (corrected for heart rate), electrocardiogram 386 ms Invalid Interpretation Code [facility] Work Phone: Vital Signs Date Time Vital Sign Value Performing Clinician Facility 02-23-2025 16:46-0400 Diastolic blood pressure 87 mm[Hg] Vini Mcdonald MD Work Phone: [facility] 02-23-2025 16:46-0400 Heart rate 93 /min Vini Mcdonald MD Work Phone: [facility] 02-23-2025 16:46-0400 Respiratory rate 16 /min Vini Mcdonald MD Work Phone: [facility] 02-23-2025 16:46-0400 Systolic blood pressure 146 mm[Hg] Vini Mcdonald MD Work Phone: [facility] 02-23-2025 15:53-0400 Body temperature 98.29 [degF] Vini Mcdonald MD Work Phone: [facility] 02-23-2025 15:53-0400 SaO2% (BldA) [Mass fraction] 97 % Vini Mcdonald MD Work Phone: [facility] 01-05-2025 15:23-0400 Diastolic blood pressure 92 mm[Hg] Vini Mcdonald MD Work Phone: [facility] 01-05-2025 15:23-0400 Heart rate 117 /min Vini Mcdonald MD Work Phone: [facility] 01-05-2025 15:23-0400 Respiratory rate 18 /min Vini Mcdonald MD Work Phone: [facility] 01-05-2025 15:23-0400 Systolic blood pressure 148 mm[Hg] Vini Mcdonald MD Work Phone: [facility] 01-05-2025 15:04-0400 Body temperature 98.4 [degF] Vini Mcdonald MD Work Phone: [facility] 01-05-2025 15:04-0400 SaO2% (BldA) [Mass fraction] 99 % Vini Mcdonald MD Work Phone: [facility] 01-05-2025 14:37-0400 Diastolic blood pressure 80 mm[Hg] Erika Conway PA-C Work Phone: [facility] 01-05-2025 14:37-0400 Heart rate 91 /min Erika Conway PA-C Work Phone: [facility] 01-05-2025 14:37-0400 Respiratory rate 16 /min Erika Conway PA-C Work Phone: [facility] 01-05-2025 14:37-0400 SaO2% (BldA) [Mass fraction] 99 % Erika Conway PA-C Work Phone: [facility] 01-05-2025 14:37-0400 Systolic blood pressure 126 mm[Hg] Erika Conway PA-C Work Phone: [facility] 12-31-2024 15:41-0400 Diastolic blood pressure 74 mm[Hg] Vini Mcdonald MD Work Phone: [facility] 12-31-2024 15:41-0400 Heart rate 110 /min Vini Mcdonald MD Work Phone: [facility] 12-31-2024 15:41-0400 Respiratory rate 18 /min Vini Mcdonald MD Work Phone: [facility] 12-31-2024 15:41-0400 Systolic blood pressure 142 mm[Hg] Vini Mcdonald MD Work Phone: [facility] 12-31-2024 15:10-0400 Body temperature 96.8 [degF] Vini Mcdonald MD Work Phone: [facility] 12-29-2024 15:57-0400 Diastolic blood pressure 81 mm[Hg] Vini Mcdonald MD Work Phone: [facility] 12-29-2024 15:57-0400 Heart rate 102 /min Vini Mcdonald MD Work Phone: [facility] 12-29-2024 15:57-0400 Respiratory rate 16 /min Vini Mcdonald MD Work Phone: [facility] 12-29-2024 15:57-0400 Systolic blood pressure 135 mm[Hg] Vini Mcdonald MD Work Phone: [facility] 12-29-2024 15:16-0400 SaO2% (BldA) [Mass fraction] 100 % Vini Mcdonald MD Work Phone: [facility] 11-05-2024 15:38-0400 Diastolic blood pressure 84 mm[Hg] Vini Mcdonald MD Work Phone: [facility] 11-05-2024 15:38-0400 Heart rate 110 /min Vini Mcdonald MD Work Phone: [facility] 11-05-2024 15:38-0400 Respiratory rate 18 /min Vini Mcdonald MD Work Phone: [facility] 11-05-2024 15:38-0400 Systolic blood pressure 140 mm[Hg] Vini Mcdonald MD Work Phone: [facility] 11-05-2024 15:18-0400 Body temperature 96.6 [degF] Vini Mcdonald MD Work Phone: [facility] 11-03-2024 15:48-0400 Diastolic blood pressure 63 mm[Hg] Vini Mcdonald MD Work Phone: [facility] 11-03-2024 15:48-0400 Heart rate 93 /min Vini Mcdonald MD Work Phone: [facility] 11-03-2024 15:48-0400 Respiratory rate 18 /min Vini Mcdonlad MD Work Phone: [facility] 11-03-2024 15:48-0400 SaO2% (BldA) [Mass fraction] 99 % Vini Mcdonald MD Work Phone: [facility] 11-03-2024 15:48-0400 Systolic blood pressure 143 mm[Hg] Vini Mcdonald MD Work Phone: [facility] 10-06-2024 16:00-0400 Diastolic blood pressure 86 mm[Hg] Vini Mcdonald MD Work Phone: [facility] 10-06-2024 16:00-0400 Heart rate 100 /min Vini Mcdonald MD Work Phone: [facility] 10-06-2024 16:00-0400 Respiratory rate 18 /min Vini Mcdonald MD Work Phone: [facility] 10-06-2024 16:00-0400 Systolic blood pressure 131 mm[Hg] Vini Mcdonald MD Work Phone: [facility] 10-06-2024 15:21-0400 Body temperature 97.3 [degF] Vini Mcdonald MD Work Phone: [facility] 10-06-2024 15:21-0400 SaO2% (BldA) [Mass fraction] 99 % Vini Mcdonald MD Work Phone: [facility] 09-18-2024 13:26-0400 Body mass index (BMI) [Ratio] 16.29 kg/m2 Erika Conway PA-C Work Phone: [facility] 09-18-2024 13:26-0400 Body weight 47.17 kg Erika Conway PA-C Work Phone: [facility] 09-18-2024 13:26-0400 Diastolic blood pressure 88 mm[Hg] Erika Conway PA-C Work Phone: [facility] 09-18-2024 13:26-0400 Heart rate 110 /min Erika Conway PA-C Work Phone: [facility] 09-18-2024 13:26-0400 Respiratory rate 18 /min Erika Conway PA-C Work Phone: [facility] 09-18-2024 13:26-0400 SaO2% (BldA) [Mass fraction] 97 % Erika Conway PA-C Work Phone: [facility] 09-18-2024 13:26-0400 Systolic blood pressure 137 mm[Hg] Erika Conway PA-C Work Phone: [facility] 09-10-2024 15:50-0400 Diastolic blood pressure 84 mm[Hg] Vini Mcdonald MD Work Phone: [facility] 09-10-2024 15:50-0400 Heart rate 85 /min Vini Mcdonald MD Work Phone: [facility] 09-10-2024 15:50-0400 Respiratory rate 18 /min Vini Mcdonald MD Work Phone: [facility] 09-10-2024 15:50-0400 Systolic blood pressure 135 mm[Hg] Vini Mcdonald MD Work Phone: [facility] 09-10-2024 15:05-0400 Body temperature 96.8 [degF] Vini Mcdonald MD Work Phone: [facility] 09-08-2024 16:11-0400 Diastolic blood pressure 87 mm[Hg] Vini Mcdonald MD Work Phone: [facility] 09-08-2024 16:11-0400 Heart rate 100 /min Vini Mcdonald MD Work Phone: [facility] 09-08-2024 16:11-0400 Respiratory rate 16 /min Vini Mcdonald MD Work Phone: [facility] 09-08-2024 16:11-0400 Systolic blood pressure 151 mm[Hg] Vini Mcdonald MD Work Phone: [facility] 09-08-2024 15:32-0400 Body temperature 97.3 [degF] Vini Mcdonald MD Work Phone: [facility] 09-08-2024 15:32-0400 SaO2% (BldA) [Mass fraction] 100 % Vini Mcdonald MD Work Phone: [facility] 07-16-2024 15:29-0500 Heart rate 105 /min Vini Mcdonald MD Work Phone: [facility] 07-16-2024 15:29-0500 Respiratory rate 18 /min Vini Mcdonald MD Work Phone: [facility] 07-16-2024 14:57-0500 Body temperature 96.4 [degF] Vini Mdconald MD Work Phone: [facility] 07-16-2024 14:57-0500 Diastolic blood pressure 67 mm[Hg] Vnii Mcdonald MD Work Phone: [facility] 07-16-2024 14:57-0500 Systolic blood pressure 119 mm[Hg] Vini Mcdonald MD Work Phone: [facility] 07-14-2024 15:13-0500 Diastolic blood pressure 81 mm[Hg] Vini Mcdonald MD Work Phone: [facility] 07-14-2024 15:13-0500 Heart rate 102 /min Vini Mcdonald MD Work Phone: [facility] 07-14-2024 15:13-0500 Respiratory rate 18 /min Vini Mcdonald MD Work Phone: [facility] 07-14-2024 15:13-0500 Systolic blood pressure 136 mm[Hg] Vini Mcdonald MD Work Phone: [facility] 07-14-2024 14:44-0500 Body temperature 98.4 [degF] Vini Mcdonald MD Work Phone: [facility] 07-07-2024 16:19-0500 Diastolic blood pressure 78 mm[Hg] Vini Mcdonald MD Work Phone: [facility] 07-07-2024 16:19-0500 Heart rate 114 /min Vini Mcdonald MD Work Phone: [facility] 07-07-2024 16:19-0500 Respiratory rate 16 /min Vini Mcdonald MD Work Phone: [facility] 07-07-2024 16:19-0500 SaO2% (BldA) [Mass fraction] 98 % Vini Mcdonald MD Work Phone: [facility] 07-07-2024 16:19-0500 Systolic blood pressure 122 mm[Hg] Vini Mcdonald MD Work Phone: [facility] 07-07-2024 15:23-0500 Body temperature 98.49 [degF] Vini Mcdonald MD Work Phone: [facility] 06-23-2024 13:00-0500 Diastolic blood pressure 74 mm[Hg] Erika Conway PA-C Work Phone: [facility] 06-23-2024 13:00-0500 Heart rate 90 /min Erika Conway PA-C Work Phone: [facility] 06-23-2024 13:00-0500 Respiratory rate 16 /min Erika Conway PA-C Work Phone: [facility] 06-23-2024 13:00-0500 SaO2% (BldA) [Mass fraction] 100 % Erika Conway PA-C Work Phone: [facility] 06-23-2024 13:00-0500 Systolic blood pressure 119 mm[Hg] Erika Conway PA-C Work Phone: [facility] 05-19-2024 15:42-0500 Diastolic blood pressure 84 mm[Hg] Vini Mcdonald MD Work Phone: [facility] 05-19-2024 15:42-0500 Heart rate 75 /min Vini Mcdonald MD Work Phone: [facility] 05-19-2024 15:42-0500 Respiratory rate 18 /min Vini Mcdonald MD Work Phone: [facility] 05-19-2024 15:42-0500 Systolic blood pressure 136 mm[Hg] Vini Mcdonald MD Work Phone: [facility] 05-12-2024 15:48-0500 Diastolic blood pressure 83 mm[Hg] Vini Mcdonald MD Work Phone: [facility] 05-12-2024 15:48-0500 Heart rate 101 /min Vini Mcdonald MD Work Phone: [facility] 05-12-2024 15:48-0500 Respiratory rate 18 /min Vini Mcdonald MD Work Phone: [facility] 05-12-2024 15:48-0500 Systolic blood pressure 144 mm[Hg] Vini Mcdonald MD Work Phone: [facility] 05-12-2024 15:12-0500 Body temperature 96.91 [degF] Vini Mcdonald MD Work Phone: [facility] 04-02-2024 15:55-0400 Diastolic blood pressure 79 mm[Hg] Vini Mcdonald MD Work Phone: [facility] 04-02-2024 15:55-0400 Heart rate 97 /min Vini Mcdonald MD Work Phone: [facility] 04-02-2024 15:55-0400 Respiratory rate 18 /min Vini Mcdonald MD Work Phone: [facility] 04-02-2024 15:55-0400 Systolic blood pressure 137 mm[Hg] Vini Mcdonald MD Work Phone: [facility] 04-02-2024 15:16-0400 Body temperature 96.8 [degF] Vini Mcdonald MD Work Phone: [facility] 03-25-2024 14:25-0400 Body mass index (BMI) [Ratio] 16.29 kg/m2 Erika Conway PA-C Work Phone: [facility] 03-25-2024 14:25-0400 Body weight 47.17 kg Erika Conway PA-C Work Phone: [facility] [facility] 03-25-2024 14:25-0400 Diastolic blood pressure 85 mm[Hg] Erika Conway PA-C Work Phone: [facility] 03-25-2024 14:25-0400 Heart rate 97 /min Erika Conway PA-C Work Phone: [facility] 03-25-2024 14:25-0400 Respiratory rate 18 /min Erika Conway PA-C Work Phone: [facility] 03-25-2024 14:25-0400 SaO2% (BldA) [Mass fraction] 100 % Erika Conway PA-C Work Phone: [facility] 03-25-2024 14:25-0400 Systolic blood pressure 125 mm[Hg] Erika Conway PA-C Work Phone: [facility] 03-12-2024 15:36-0400 Diastolic blood pressure 84 mm[Hg] Vini Mcdonald MD Work Phone: [facility] 03-12-2024 15:36-0400 Heart rate 90 /min Vini Mcdonald MD Work Phone: [facility] 03-12-2024 15:36-0400 Respiratory rate 18 /min Vini Mcdonald MD Work Phone: [facility] 03-12-2024 15:36-0400 Systolic blood pressure 146 mm[Hg] Vini Mcdonald MD Work Phone: [facility] 03-12-2024 14:54-0400 Body temperature 97.81 [degF] Vini Mcdonald MD Work Phone: [facility] 03-10-2024 15:42-0400 Diastolic blood pressure 88 mm[Hg] Vini Mcdonald MD Work Phone: [facility] 03-10-2024 15:42-0400 Heart rate 82 /min Vini Mcdonald MD Work Phone: [facility] 03-10-2024 15:42-0400 Respiratory rate 18 /min Vini Mcdonald MD Work Phone: [facility] 03-10-2024 15:42-0400 Systolic blood pressure 148 mm[Hg] Vini Mcdonald MD Work Phone: [facility] 03-10-2024 15:02-0400 Body temperature 97.7 [degF] Vini Mcdonald MD Work Phone: [facility] 01-14-2024 15:52-0400 Diastolic blood pressure 87 mm[Hg] Vini Mcdonald MD Work Phone: [facility] 01-14-2024 15:52-0400 Heart rate 74 /min Vini Mcdonald MD Work Phone: [facility] 01-14-2024 15:52-0400 Respiratory rate 18 /min Vini Mcdonald MD Work Phone: [facility] 01-14-2024 15:52-0400 Systolic blood pressure 125 mm[Hg] Vini Mcdonald MD Work Phone: [facility] 01-14-2024 15:25-0400 Body temperature 96.8 [degF] Vini Mcdonald MD Work Phone: [facility] 01-09-2024 15:37-0400 Body temperature 97 [degF] Vini Mcdonald MD Work Phone: [facility] 01-09-2024 15:37-0400 Diastolic blood pressure 78 mm[Hg] Vini Mcdonald MD Work Phone: [facility] 01-09-2024 15:37-0400 Heart rate 86 /min Vini Mcdonald MD Work Phone: [facility] 01-09-2024 15:37-0400 Respiratory rate 18 /min Vini Mcdonald MD Work Phone: [facility] 01-09-2024 15:37-0400 Systolic blood pressure 128 mm[Hg] Vini Mcdonald MD Work Phone: [facility] 12-18-2023 14:16-0400 Body mass index (BMI) [Ratio] 16.29 kg/m2 Vini Mcdonald MD Work Phone: [facility] 12-18-2023 14:16-0400 Body weight 47.17 kg Vini Mcdonald MD Work Phone: [facility] 12-18-2023 14:16-0400 Diastolic blood pressure 70 mm[Hg] Vini Mcdonald MD Work Phone: [facility] 12-18-2023 14:16-0400 Heart rate 67 /min Vini Mcdonald MD Work Phone: [facility] 12-18-2023 14:16-0400 Respiratory rate 18 /min Vini Mcdonald MD Work Phone: [facility] 12-18-2023 14:16-0400 SaO2% (BldA) [Mass fraction] 97 % Vini Mcdonald MD Work Phone: [facility] 12-18-2023 14:16-0400 Systolic blood pressure 134 mm[Hg] Vini Mcdonald MD Work Phone: [facility] 11-14-2023 13:50-0400 Diastolic blood pressure 78 mm[Hg] Dejon Andres MD Work Phone: [facility] 11-14-2023 13:50-0400 Heart rate 67 /min Dejon Andres MD Work Phone: [facility] 11-14-2023 13:50-0400 Respiratory rate 18 /min Dejon Andres MD Work Phone: [facility] 11-14-2023 13:50-0400 Systolic blood pressure 143 mm[Hg] Dejon Andres MD Work Phone: [facility] 11-14-2023 13:16-0400 Body temperature 97.2 [degF] Dejon Andres MD Work Phone: [facility] 10-29-2023 14:31-0400 Body mass index (BMI) [Ratio] 16.29 kg/m2 Erika QUINTANA-C Work Phone: [facility] 10-29-2023 14:31-0400 Body weight 47.17 kg Erika QUINTANA-C Work Phone: [facility] 10-29-2023 14:31-0400 Diastolic blood pressure 76 mm[Hg] Erika QUINTANA-C Work Phone: [facility] 10-29-2023 14:31-0400 Heart rate 106 /min Erika QUINTANA-C Work Phone: [facility] 10-29-2023 14:31-0400 Respiratory rate 18 /min Erika QUINTANA-C Work Phone: [facility] 10-29-2023 14:31-0400 SaO2% (BldA) [Mass fraction] 99 % Erika Conway PA-C Work Phone: [facility] 10-29-2023 14:31-0400 Systolic blood pressure 147 mm[Hg] Erika Conway PA-C Work Phone: [facility] 10-24-2023 09:31-0400 Diastolic blood pressure 82 mm[Hg] Dejon Andres MD Work Phone: [facility] 10-24-2023 09:31-0400 Heart rate 81 /min Dejon Andres MD Work Phone: [facility] 10-24-2023 09:31-0400 Respiratory rate 18 /min Dejon Andres MD Work Phone: [facility] 10-24-2023 09:31-0400 SaO2% (BldA) [Mass fraction] 100 % Dejon Andres MD Work Phone: [facility] 10-24-2023 09:31-0400 Systolic blood pressure 130 mm[Hg] Dejon Andres MD Work Phone: [facility] 10-24-2023 09:13-0400 Body temperature 96.4 [degF] Dejon Andres MD Work Phone: [facility] 10-22-2023 16:21-0400 Diastolic blood pressure 88 mm[Hg] Dejon Andres MD Work Phone: [facility] 10-22-2023 16:21-0400 Heart rate 82 /min Dejon Andres MD Work Phone: [facility] 10-22-2023 16:21-0400 Respiratory rate 18 /min Dejon Andres MD Work Phone: [facility] 10-22-2023 16:21-0400 Systolic blood pressure 137 mm[Hg] Dejon Andres MD Work Phone: [facility] 10-22-2023 16:07-0400 Body temperature 97.11 [degF] Dejon Andres MD Work Phone: [facility] 09-19-2023 14:45-0400 Body height 170.2 cm Erika Conway PA-C Work Phone: [facility] 09-19-2023 14:45-0400 Body temperature 98.1 [degF] Erika Conway PA-C Work Phone: [facility] 09-19-2023 14:45-0400 Body weight 47.17 kg Erika Conway PA-C Work Phone: [facility] 09-19-2023 14:45-0400 Diastolic blood pressure 57 mm[Hg] Erika Conway PA-C Work Phone: [facility] 09-19-2023 14:45-0400 Heart rate 103 /min Erika QUINTANA-C Work Phone: [facility] 09-19-2023 14:45-0400 Respiratory rate 18 /min Erika Conway PA-C Work Phone: [facility] 09-19-2023 14:45-0400 SaO2% (BldA) [Mass fraction] 97 % Erika Conway PA-C Work Phone: [facility] 09-19-2023 14:45-0400 Systolic blood pressure 109 mm[Hg] Erika Conway PA-C Work Phone: [facility] 09-03-2023 15:19-0400 Diastolic blood pressure 76 mm[Hg] Dejon Andres MD Work Phone: [facility] 09-03-2023 15:19-0400 Heart rate 115 /min Dejon Andres MD Work Phone: [facility] 09-03-2023 15:19-0400 Respiratory rate 18 /min Dejon Andres MD Work Phone: [facility] 09-03-2023 15:19-0400 Systolic blood pressure 119 mm[Hg] Dejon Andres MD Work Phone: [facility] 09-03-2023 15:04-0400 Body temperature 96.6 [degF] Dejon Andres MD Work Phone: [facility] 08-29-2023 15:12-0400 Diastolic blood pressure 72 mm[Hg] Dejon Andres MD Work Phone: [facility] 08-29-2023 15:12-0400 Heart rate 100 /min Dejon Andres MD Work Phone: [facility] 08-29-2023 15:12-0400 Respiratory rate 18 /min Dejon Andres MD Work Phone: [facility] 08-29-2023 15:12-0400 Systolic blood pressure 122 mm[Hg] Dejon Andres MD Work Phone: [facility] 08-29-2023 14:59-0400 Body temperature 96.3 [degF] Dejon Andres MD Work Phone: [facility] 08-12-2023 10:25-0500 Body temperature 97.3 [degF] [facility] 08-12-2023 10:25-0500 Diastolic blood pressure 74 mm[Hg] [facility] 08-12-2023 10:25-0500 Heart rate 79 /min [facility] 08-12-2023 10:25-0500 Respiratory rate 16 /min [facility] 08-12-2023 10:25-0500 SaO2% (BldA) [Mass fraction] 99 % [facility] 08-12-2023 10:25-0500 Systolic blood pressure 114 mm[Hg] [facility] 08-12-2023 09:32-0500 Body height 170.18 cm [facility] 08-12-2023 09:32-0500 Body mass index (BMI) [Ratio] 16.9 kg/m2 [facility] 08-12-2023 09:32-0500 Body weight 49.1 kg [facility] 08-06-2023 15:13-0500 Diastolic blood pressure 89 mm[Hg] Dejon Andres MD Work Phone: [facility] 08-06-2023 15:13-0500 Heart rate 120 /min Dejon Andres MD Work Phone: [facility] 08-06-2023 15:13-0500 Respiratory rate 18 /min Dejon Andres MD Work Phone: [facility] 08-06-2023 15:13-0500 Systolic blood pressure 152 mm[Hg] Dejon Andres MD Work Phone: [facility] 08-06-2023 14:50-0500 Body temperature 97.81 [degF] Dejon Andres MD Work Phone: [facility] 03-18-2023 16:37-0400 Body height 173.7 cm Morteza Meza DO Work Phone: [facility] 03-18-2023 16:37-0400 Body weight 48.99 kg Morteza Meza DO Work Phone: [facility] 03-18-2023 16:37-0400 Diastolic blood pressure 66 mm[Hg] Morteza Meza DO Work Phone: [facility] 03-18-2023 16:37-0400 Heart rate 84 /min Morteza Meza DO Work Phone: [facility] 03-18-2023 16:37-0400 Respiratory rate 19 /min Morteza Meza DO Work Phone: [facility] 03-18-2023 16:37-0400 SaO2% (BldA) [Mass fraction] 96 % Morteza Meza DO Work Phone: [facility] 03-18-2023 16:37-0400 Systolic blood pressure 128 mm[Hg] Morteza Meza DO Work Phone: [facility] 01-31-2023 13:53-0400 Diastolic blood pressure 90 mm[Hg] Morteza Meza DO Work Phone: [facility] 01-31-2023 13:53-0400 Heart rate 98 /min Mauriciovaleria Meza DO Work Phone: [facility] 01-31-2023 13:53-0400 Respiratory rate 16 /min Mauriciovaleria Derrick DO Work Phone: [facility] 01-31-2023 13:53-0400 SaO2% (BldA) [Mass fraction] 99 % Morteza Meza DO Work Phone: [facility] 01-31-2023 13:53-0400 Systolic blood pressure 136 mm[Hg] Mauriciovaleria Meza DO Work Phone: [facility] 01-31-2023 13:22-0400 Body temperature 97.81 [degF] Morteza Meza DO Work Phone: [facility] 01-31-2023 13:22-0400 Body weight 48.81 kg Morteza Meza DO Work Phone: [facility] 08-23-2022 13:35-0400 Body weight 44.81 kg Morteza Meza DO Work Phone: [facility] 08-23-2022 13:35-0400 Diastolic blood pressure 90 mm[Hg] Morteza Meaz DO Work Phone: [facility] 08-23-2022 13:35-0400 Heart rate 110 /min Morteza Meza DO Work Phone: [facility] 08-23-2022 13:35-0400 Respiratory rate 16 /min Morteza Meza DO Work Phone: [facility] 08-23-2022 13:35-0400 SaO2% (BldA) [Mass fraction] 100 % Morteza Meza DO Work Phone: [facility] 08-23-2022 13:35-0400 Systolic blood pressure 150 mm[Hg] Morteza Meza DO Work Phone: [facility] 08-23-2022 13:04-0400 Body temperature 98.4 [degF] Morteza Meza DO Work Phone: [facility] 01-30-2022 14:37-0400 Body height 173.7 cm Morteza Meza DO Work Phone: [facility] 01-30-2022 14:37-0400 Body weight 46.27 kg Morteza Meza DO Work Phone: [facility] 01-30-2022 14:37-0400 Diastolic blood pressure 81 mm[Hg] Mauriciovaleria Derrick DO Work Phone: [facility] 01-30-2022 14:37-0400 Heart rate 101 /min Morteza Meza DO Work Phone: [facility] 01-30-2022 14:37-0400 Respiratory rate 19 /min Mauriciovaleria Meza DO Work Phone: [facility] 01-30-2022 14:37-0400 SaO2% (BldA) [Mass fraction] 98 % Morteza Meza DO Work Phone: [facility] 01-30-2022 14:37-0400 Systolic blood pressure 132 mm[Hg] Morteza Meza DO Work Phone: [facility] 12-13-2021 13:52-0400 Diastolic blood pressure 68 mm[Hg] Morteza Meza DO Work Phone: [facility] 12-13-2021 13:52-0400 Heart rate 112 /min Mauriciovaleria Meza DO Work Phone: [facility] 12-13-2021 13:52-0400 Respiratory rate 16 /min Morteza Meza DO Work Phone: [facility] 12-13-2021 13:52-0400 SaO2% (BldA) [Mass fraction] 100 % Mauriciovaleria Meza DO Work Phone: [facility] 12-13-2021 13:52-0400 Systolic blood pressure 138 mm[Hg] Morteza Meza DO Work Phone: [facility] 02-12-2019 16:55-0400 Body height 170.2 cm Rashida Lange APRN.PHOTOGRAPHER HELPER Work Phone: [facility] 02-12-2019 16:55-0400 Body weight 59.24 kg Rashida Lange DINING ROOM ATTENDANT CAFETERIA.PHOTOGRAPHER HELPER Work Phone: [facility] 02-12-2019 16:55-0400 Diastolic blood pressure 89 mm[Hg] Rashida Lange DINING ROOM ATTENDANT CAFETERIA.PHOTOGRAPHER HELPER Work Phone: [facility] 02-12-2019 16:55-0400 Heart rate 104 /min Rashida Moseleyricky DINING ROOM ATTENDANT CAFETERIA.PHOTOGRAPHER HELPER Work Phone: [facility] 02-12-2019 16:55-0400 SaO2% (BldA) [Mass fraction] 98 % Rashida Lange DINING ROOM ATTENDANT CAFETERIA.PHOTOGRAPHER HELPER Work Phone: [facility] 02-12-2019 16:55-0400 Systolic blood pressure 139 mm[Hg] Rashida Lange DINING ROOM ATTENDANT CAFETERIA.PHOTOGRAPHER HELPER Work Phone: [facility] 04-18-2017 14:19-0500 Body mass index (BMI) [Ratio] 16.72 kg/m2 [facility] Work Phone: 04-18-2017 14:19-0500 Body weight 49.9 kg [facility] Work Phone: 04-18-2017 14:19-0500 Diastolic blood pressure 80 mm[Hg] [facility] Work Phone: 04-18-2017 14:19-0500 Heart rate 80 /min [facility] Work Phone: 04-18-2017 14:19-0500 Systolic blood pressure 110 mm[Hg] [facility] Work Phone: 10-11-2016 15:34-0400 Body mass index (BMI) [Ratio] 16.42 kg/m2 [facility] Work Phone: 10-11-2016 15:34-0400 Body weight 48.99 kg [facility] Work Phone: 10-11-2016 15:34-0400 Diastolic blood pressure 48 mm[Hg] [facility] Work Phone: 10-11-2016 15:34-0400 Heart rate 92 /min [facility] Work Phone: 10-11-2016 15:34-0400 Respiratory rate 16 /min [facility] Work Phone: 10-11-2016 15:34-0400 Systolic blood pressure 102 mm[Hg] [facility] Work Phone: 01-09-2016 11:05-0400 Body surface area Derived from formula 1.6 m2 [facility] Work Phone: 06-29-2011 11:17-0500 Body height 172.72 cm Erica [facility] [employer] Work Phone: Encounters Encounter Date Encounter Type Care Provider Facility Start: 04-20-2025 ambulatory VINI Rivera ty:[id number] Start: 04-19-2025 End: 04-19-2025 ambulatory Michele Galvan Facility:[facility] Start: 04-13-2025 ambulatory Mayuri No [facility] Start: 04-08-2025 ambulatory Hakan Tyson [facility] Start: 04-08-2025 Encounter for preprocedural cardiovascular examination Kamaljit Harding [facility] Start: 04-08-2025 End: 04-08-2025 ambulatory Kamaljit Harding Facility:[facility] Start: 04-08-2025 End: 04-08-2025 ambulatory Kamaljit Harding Facility:[facility] Start: 04-06-2025 ambulatory VINI Rivera ty:[id number] Start: 03-19-2025 End: 03-19-2025 ambulatory ERIKA CONWAY Facility:[id number] Start: 03-05-2025 End: 03-05-2025 ambulatory Michele Galvan MD Work Phone: [facility] Start: 03-05-2025 End: 03-05-[address] Michele Galvan MD -Laboratory [facility] Start: 03-05-2025 End: 03-05-2025 ambulatory Michele Galvan Facility:[facility] Start: 02-25-2025 End: 02-25-2025 ambulatory VINI MCDONALD Facility:[id number] Start: 02-23-2025 End: 02-23-2025 ambulatory VINI MCDONALD Facility:[id number] Start: 02-23-2025 End: 02-23-2025 Subsequent hospital visit [...] Work Phone: [facility] Comment on above: Liuqsda-Lkdsq-Gafpp disease (Primary Dx); Darin-Danlos syndrome (HCC); Marfan's syndrome (HCC); Myofascial pain syndrome; Fibromyalgia; Migraine, unspecified, without mention of intractable migraine without mention of status migrainosus Start: 01-05-2025 End: 01-05-2025 ambulatory ERIKA CONWAY Facility:[id number] Start: 12-31-2024 ambulatory VINI MCDONALD [facility] ty:[id number] Start: 12-31-2024 End: 12-31-2024 Subsequent hospital visit by physician Vini Mcdonald MD Work Phone: [facility] Comment on above: Myofascial pain synd dane [M79.18], Fibromyalgia [M79.7] Start: 12-30-2024 End: 12-30-2024 Telephone encounter Vini Mcdonald MD Work Phone: [facility] Start: 12-29-2024 ambulatory VINI Rivera ty:[id number] Start: 12-29-2024 End: 12-29-2024 Subsequent hospital visit [...] Refill Request Start: 11-05-2024 ambulatory VINI Rivera ty:[id number] Start: 11-05-2024 End: 11-05-2024 Subsequent hospital visit by physician Vini Mcdonald MD Work Phone: [facility] Comment on above: Myofascial pain synd dane [M79.18] Start: 11-03-2024 ambulatory VINI ROBINSLEEANN Paulinai ty:[id number] Start: 11-03-2024 End: 11-03-2024 Subsequent hospital visit [...] (Primary Dx); Fibromyalgia Start: 10-06-2024 ambulatory VINI SHIMONLEEANN Paulinalink ty:[id number] Start: 10-06-2024 End: 10-06-2024 Subsequent hospital visit by physician Vini Mdconald MD Work Phone: [facility] Comment [...] Work Phone: [facility] Comment on above: Darin-Danlos syndro me (HCC) (Primary Dx); Rspjtro-Olytw-Ukdkp disease; Marfan's syndrome (HCC); Migraine, unspecified, without mention of intractable migraine without mention of status migrainosus; Fibromyalgia; Myofascial pain syndrome; retirement (current) use of opiate analgesic Start: 09-18-2024 End: 09-18-2024 ambulatory ERIKA CONWAY Facility:[id number] Start: 09-11-2024 End: 09-11-2024 Refill Erika Conway PA-C Work Phone: [facility] Comment on above: Refill Request Start: 09-10-2024 ambulatory VINI Rivera ty:[id number] Start: 09-10-2024 End: 09-10-2024 Subsequent hospital visit by physician Vini Mcdonald MD Work Phone: [facility] Comment on above: Myofascial pain synd dane [M79.18] Start: 09-08-2024 ambulatory VINI Rivera ty:[id number] Start: 09-08-2024 End: 09-08-2024 Subsequent hospital visit [...] Refill Request Start: 07-16-2024 ambulatory VINI Rivera ty:[id number] Start: 07-16-2024 End: 07-16-2024 Subsequent hospital visit by physician Vini Mcdonald MD Work Phone: [facility] Comment on above: Myofascial pain synd dane [M79.18] Start: 07-14-2024 ambulatory VINI Rivera ty:[id number] Start: 07-14-2024 End: 07-14-2024 Subsequent hospital visit [...] Work Phone: Pain Management Comment on above: Eazcnfo-Zidte-Oivkw disease (Primary Dx); Darin-Danlos syndrome; Fibromyalgia; 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; Myofascial pain syndrome Start: 06-23-2024 End: 06-24-2024 ambulatory ERIKA CONWAY Facility:[id number] Start: 06-16-2024 End: 06-16-2024 Refill Erika Conway [...] Comment on above: Refill Request Start: 04-02-2024 End: 04-02-2024 Subsequent hospital visit by physician Vini Mcdonald MD Work Phone: [facility] Comment on above: 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 [G43.711] Start: 03-25-2024 End: 03-25-2024 Patient encounter procedure Erika Conway PA-C Work Phone: [facility] Comment on above: Fibromyalgia (Primar y Dx); Darin-Danlos syndrome; Bqxmtfh-Stwvc-Dkrrf disease; 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; intermediate frame tender (current) use of opiate analgesic Start: 03-13-2024 End: 03-16-2024 Telephone encounter Vini Mcdonald MD Work Phone: [facility] Comment on above: Cases needed for TPI 's in May Start: 03-12-2024 End: 03-12-2024 Subsequent hospital visit by physician Vini Mcdonald MD Work Phone: [facility] Comment on above: Myofascial pain synd dane [M79.18] Start: 03-11-2024 End: 03-11-2024 Orders Only Vini Mcdonald MD Work Phone: [facility] Comment on above: 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 (Primary Dx) Start: 03-10-2024 End: 03-10-2024 Subsequent hospital visit [...] Management Comment on above: Refill Request Start: 02-11-2024 End: 02-11-2024 Telephone encounter Vini [...] migraine without mention of status migrainosus Start: 01-17-2024 Refill Vini velez MD Work [...] above: Fibromyalgia [M79.7] Start: 12-18-2023 End: 12-18-2023 Office outpatient visit 25 minutes Vini Mcdonald MD Work Phone: [facility] Comment on above: Chronic pain syndrom e (Primary Dx); Fibromyalgia; Darin-Danlos syndrome; Fwzobjo-Msqpe-Rxbvu disease; intermediate frame tender (current) use of opiate analgesic; Other chronic [...] 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; Darin-Danlos syndrome; Sgajylv-Ejavl-Zyaah disease Start: 10-29-2023 Telephone encounter Erika Conway [...] 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; Darin-Danlos syndrome; Nezclve-Zumze-Jlxfn disease; Chronic pain syndrome; Myofascial pain syndrome [...] 08-12-2023 Admission to same day surgery center [facility] Start: 08-12-2023 End: 08-12-2023 ambulatory [facility] Work Phone: Start: 08-06-2023 End: 08-06-2023 Subsequent hospital visit [...] Refill Request Start: 04-23-2023 Telephone encounter Demian crystal DINING ROOM ATTENDANT CAFETERIA.PHOTOGRAPHER HELPER Work Phone: [facility] Management Comment on above: [...] 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; retirement (current) use of opiate analgesic; Other chronic pain; Darin-Danlos syndrome; Marfan's syndrome; POTS (postural orthostatic tachycardia syndrome); Fibromyalgia; Migraine variant; Myofascial pain syndrome; Sqolimq-Wysfp-Hkgmn disease; Tcnldwj-Ysihs-Lidmm syndrome Start: 02-27-2023 Orders Only Morteza Crocker DO Work Phone: Pain Management Comment on above: Myofascial pain synd dane (Primary Dx) Start: 02-22-2023 End: 02-22-2023 ambulatory Paola Falcon APRN.PHOTOGRAPHER HELPER Work Phone: [facility] Comment on above: Other chronic pain ( Primary Dx); Fibromyalgia; 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; Darin-Danlos syndrome; Chronic pain syndrome; Qjiqrzk-Xdmzo-Aynpl syndrome; retirement (current) use of opiate analgesic; Migraine variant; Myofascial pain syndrome; POTS (postural orthostatic tachycardia syndrome); Marfan's syndrome; Qsyxfit-Jlelq-Zkxma disease Start: 02-22-2023 End: 02-22-2023 Telemedicine consultation with patient Paola Mono Falcon APRN.CNP [facility] Start: 02-22-2023 Telephone encounter Morteza Meza DO Work Phone: [facility] Comment on above: Verified procedure o n Feb 27 Start: 02-21-2023 ambulatory [facility] Comment on above: SOAPP Start: 02-21-2023 E-mail encounter fro m caregiver [facility] Provider [facility] Start: 02-21-2023 Telephone encounter Paola rodriguez APRN.VISHAL Work Phone: Pain Management Start: 02-20-2023 Telephone [...] [G43.711] Start: 01-23-2023 End: 01-23-2023 ambulatory Demian Forman APRN.PHOTOGRAPHER HELPER Work Phone: Pain Management Comment on above: Other chronic pain ( Primary Dx); Fibromyalgia; 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; Darin-Danlos syndrome; retirement (current) use of opiate analgesic; Chronic pain syndrome Start: 01-23-2023 End: 01-23-2023 Telemedicine consultation with patient Demian Moffetto DINING ROOM ATTENDANT CAFETERIAENA Work Phone: [facility] Start: 12-19-2022 End: 12-19-2022 ambulatory Demian Forman APRN.VISHAL Work Phone: Pain Management Comment on above: Other chronic pain ( Primary Dx); Fibromyalgia; 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; Darin-Danlos syndrome; retirement (current) use of opiate analgesic; Chronic pain syndrome Start: 12-19-2022 End: 12-19-2022 Telemedicine consultation with patient Demian Moffetto DINING ROOM ATTENDANT CAFETERIA.PHOTOGRAPHER HELPER Work Phone: [facility] Start: 12-13-2022 ambulatory [facility] Comment on above: Soapp Start: 12-13-2022 E-mail encounter fro m caregiver [facility] Provider [facility] Start: 11-27-2022 End: 11-27-2022 ambulatory Demian Shravan DINING ROOM ATTENDANT CAFETERIA.PHOTOGRAPHER HELPER Work Phone: Pain Management Comment on above: Other chronic pain ( Primary Dx); Fibromyalgia; 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; Darin-Danlos syndrome; Migraine variant; intermediate frame tender (current) use of opiate analgesic; Chronic pain syndrome Start: 11-27-2022 End: 11-27-2022 Telemedicine consultation with patient Demian Moffetto DINING ROOM ATTENDANT CAFETERIA.PHOTOGRAPHER HELPER Work Phone: [facility] Start: 10-19-2022 ambulatory Demian Shravan DINING ROOM ATTENDANT CAFETERIA.PHOTOGRAPHER HELPER Work Phone: Pain Management Comment on above: Botox Start: 10-19-2022 E-mail encounter fro m caregiver Demian Moffetto DINING ROOM ATTENDANT CAFETERIA.PHOTOGRAPHER HELPER Work Phone: [facility] Start: 10-17-2022 Orders Only Demian Shravan DINING ROOM ATTENDANT CAFETERIA.PHOTOGRAPHER HELPER Work Phone: Pain Management Comment on above: 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 (Primary Dx); Migraine variant Start: 2022 Telephone encounter Demian crystal APRN.PHOTOGRAPHER HELPER Work Phone: Pain Management Comment on above: [employer] - [employer] the[employer] Start: 10-10-2022 End: 10-10-2022 ambulatory Demian Shravan DINING ROOM ATTENDANT CAFETERIA.PHOTOGRAPHER HELPER Work Phone: Pain Management Comment on above: Other chronic pain ( Primary Dx); intermediate frame tender (current) use of opiate analgesic; Fibromyalgia; Migraine variant Start: 10-10-2022 End: 10-10-2022 Telemedicine consultation with patient Demian Forman APRN.PHOTOGRAPHER HELPER Work Phone: [facility] Start: 09-12-2022 End: 09-12-2022 ambulatory Demian Shravan DINING ROOM ATTENDANT CAFETERIA.PHOTOGRAPHER HELPER Work Phone: Pain Management Comment on above: Other chronic pain ( Primary Dx); retirement (current) use of opiate analgesic; Fibromyalgia; Darin-Danlos syndrome; Migraine variant; Myofascial pain syndrome; Chronic pain syndrome Start: 09-12-2022 End: 09-12-2022 Telemedicine consultation with patient Demian Forman APRN.PHOTOGRAPHER HELPER Work Phone: [facility] Start: 08-23-2022 End: 08-23-2022 Subsequent hospital visit by physician Morteza Meza DO Work Phone: [facility] PAIN MANAGEMENT Comment on above: Myofascial pain synd dane [M79.18] Start: 08-21-2022 End: 08-21-2022 ambulatory Demian Shravan DINING ROOM ATTENDANT CAFETERIA.PHOTOGRAPHER HELPER Work Phone: Pain Management Comment on above: Other chronic pain ( Primary Dx); retirement (current) use of opiate analgesic; Fibromyalgia; Migraine variant; Darin-Danlos syndrome; Chronic pain syndrome Start: 08-21-2022 End: 08-21-2022 Telemedicine consultation with patient Demian Forman APRN.PHOTOGRAPHER HELPER Work Phone: [facility] Start: 08-01-2022 Orders Only Morteza Crocker DO Work Phone: Pain Management Comment on above: Myofascial pain synd dane (Primary Dx) Start: 07-24-2022 Telephone encounter Morteza Meza DO Work Phone: [facility] PAIN MANAGEMENT Comment on above: Scheduling Procedure Start: 07-10-2022 Orders Only Demian Moffetto DINING ROOM ATTENDANT CAFETERIA.PHOTOGRAPHER HELPER Work Phone: Pain Management Comment on above: 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 (Primary Dx) Start: 07-03-2022 End: 07-03-2022 ambulatory Demian Forman APRN.VISHAL Work Phone: Pain Management Comment on above: Other chronic pain ( Primary Dx); intermediate frame tender (current) use of opiate analgesic; Fibromyalgia; Migraine variant; Darin-Danlos syndrome; Chronic pain syndrome Start: 07-03-2022 End: 07-03-2022 Telemedicine consultation with patient Demian Forman APRN.VISHAL Work Phone: [facility] Start: 06-06-2022 Telephone encounter Demian graycamacho OLIVERA.VISHAL Work Phone: Pain Management Comment on above: Orders Start: 05-07-2022 End: 05-07-2022 ambulatory Demian Forman APRN.VISHAL Work Phone: Pain Management Comment on above: Other chronic pain ( Primary Dx); intermediate frame tender (current) use of opiate analgesic; Fibromyalgia; Migraine variant; Chronic pain syndrome Start: 05-07-2022 End: 05-07-2022 Telemedicine consultation with patient Demian Forman APRN.VISHAL Work Phone: [facility] Start: 04-26-2022 Orders Only Morteza Crocker DO Work Phone: [...] Fibromyalgia Start: 04-20-2022 End: 04-20-2022 ambulatory Demian Forman APRN.VISHAL Work Phone: Pain Management Comment on above: Fibromyalgia (Primar y Dx); retirement (current) use of opiate analgesic; Chronic pain syndrome; 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 Start: 04-20-2022 End: 04-20-2022 Telemedicine consultation with patient Demian Forman APRN.VISHAL Work Phone: [facility] Start: 02-23-2022 End: 02-23-2022 ambulatory Demian Forman APRN.PHOTOGRAPHER HELPER Work Phone: Pain Management Comment on above: Fibromyalgia (Primar y Dx); retirement (current) use of opiate analgesic; Chronic pain syndrome; 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 Start: 02-23-2022 End: 02-23-2022 Telemedicine consultation with patient Demian Forman APRN.PHOTOGRAPHER HELPER Work Phone: [employer] [facility] Start: 01-30-2022 End: 01-30-2022 Patient encounter procedure Morteza Meza DO Work Phone: Pain Management Comment on above: Xgraldo-Ysgnu-Zptwk syndrome (Primary Dx); POTS (postural orthostatic tachycardia syndrome); Myofascial pain syndrome Start: 01-02-2022 End: 01-02-2022 ambulatory Demian Forman APRN.PHOTOGRAPHER HELPER Work Phone: Pain Management Comment on above: Chronic pain syndrom e (Primary Dx); Migraine variant; Fibromyalgia; Myofascial pain syndrome; intermediate frame tender (current) use of opiate analgesic Start: 01-02-2022 End: 01-02-2022 Telemedicine consultation with patient Demian Forman APRN.VISHAL Work Phone: [facility] [employer] Start: 12-13-2021 Telephone encounter Morteza Meza DO Work Phone: MR PAIN MANAGEMENT Comment on above: UTI Start: 12-13-2021 End: 12-13-2021 Subsequent hospital visit by physician Morteza Meza DO Work Phone: MR PAIN MANAGEMENT Comment on above: Myofascial pain synd dane [M79.18] Start: 12-08-2021 End: 12-08-2021 Office outpatient visit 25 minutes Rashida Lange APRN.PHOTOGRAPHER HELPER Work Phone: Pain Management Comment on above: Chronic pain syndrom e (Primary Dx); Myofascial pain syndrome; Fibromyalgia; 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; Marfan's syndrome; Qgulpps-Tvhsp-Gkntw disease; Darin-Danlos syndrome Start: 11-22-2021 Chart abstracting Rashida Lange APRN.PHOTOGRAPHER HELPER Work Phone: Pain Management Start: 11-15-2021 End: 11-15-2021 Subsequent hospital visit by physician Demian Forman APRN.PHOTOGRAPHER HELPER Work Phone: [facility] Comment on [...] Subsequent hospital visit by physician Demian Manning APRN.PHOTOGRAPHER HELPER Work Phone: [facility] Comment on above: VIRTUAL Start: 04-23-2005 Chart abstracting Nurse Valerie evans Wstr Work Phone: Gastroenterology Procedures Date Procedure Procedure Detail Performing Clinician Start: 03-05-2025 Vitamin D, 25-hydrox y measurement Michele Galvan MD Work Phone: Comment on above: Vitamin D StatusDefi ciency: <20 ng/mL (50nmol/L)Insufficiency: 20-30 ng/mL (50-75 nmol/L)Sufficiency: 30-100 ng/mL (75-250 nmol/L)Toxicity: >100 ng/mL (>250 nmol/L) Start: 02-23-2025 End: 02-23-2025 Injection single/smart energy specialist trigger point 3/> muscles Vini Mcdonald MD Work Phone: Start: 01-05-2025 End: 01-05-2025 Chemodervate facial/trigem/cerv musc migraine Vini Mcdonald MD Work Phone: Start: 12-31-2024 End: 12-31-2024 Injection single/smart energy specialist trigger point 3/> muscles Vini Mcdonald MD Work Phone: Start: 12-29-2024 End: 12-29-2024 Injection single/smart energy specialist trigger point 3/> muscles Vini Mcdonald MD Work Phone: Start: 11-05-2024 End: 11-05-2024 Injection single/smart energy specialist trigger point 3/> muscles Vini Mcdonald MD Work Phone: Start: 11-03-2024 End: 11-03-2024 Injection single/smart energy specialist trigger point 3/> muscles Vini Mcdonald MD Work Phone: Start: 09-10-2024 End: 09-10-2024 Injection single/smart energy specialist trigger point 3/> muscles Vini Mcdonald MD Work Phone: Start: 09-08-2024 End: 09-08-2024 Injection single/smart energy specialist trigger point 3/> muscles Vini Mcdonald MD Work Phone: Start: 07-16-2024 End: 07-16-2024 Injection single/smart energy specialist trigger point 3/> muscles Vini Mcdonald MD Work Phone: Start: 07-14-2024 End: 07-14-2024 Injection single/smart energy specialist trigger point 3/> muscles Vini Mcdonald MD Work Phone: Start: 05-19-2024 End: 05-19-2024 Injection single/smart energy specialist trigger point 3/> muscles Vini Mcdonald MD Work Phone: Start: 05-12-2024 End: 05-12-2024 Injection single/smart energy specialist trigger point 3/> muscles Vini Mcdonald MD Work Phone: Start: 03-12-2024 End: 03-12-2024 Injection single/smart energy specialist trigger point 3/> muscles Vini Mcdonald MD Work Phone: Start: 03-10-2024 End: 03-10-2024 Injection single/smart energy specialist trigger point 3/> muscles Vini Mcdonald MD Work Phone: Start: 01-14-2024 End: 01-14-2024 Injection single/smart energy specialist trigger point 3/> muscles Vini Mcdonald MD Work Phone: Start: 01-09-2024 End: 01-09-2024 Injection single/smart energy specialist trigger point 3/> muscles Vini Mcdonald MD Work Phone: Start: 10-24-2023 End: 10-24-2023 Injection single/smart energy specialist trigger point 3/> muscles Dejon Andres MD Work Phone: Start: 10-22-2023 End: 10-22-2023 Injection single/smart energy specialist trigger point 3/> muscles Dejon Andres MD Work Phone: Start: 09-03-2023 End: 09-03-2023 Injection single/smart energy specialist trigger point 3/> muscles Dejon Andres MD Work Phone: Start: 08-29-2023 End: 08-29-2023 Injection single/smart energy specialist trigger point 3/> muscles Dejon Andres MD Work Phone: Start: 08-12-2023 Myringotomy,Tubes (Bilateral) Start: 08-06-2023 End: 08-06-2023 Chemodervate facial/trigem/cerv musc migraine Dejon Andres MD Work Phone: Start: 01-31-2023 End: 01-31-2023 Chemodervate facial/trigem/cerv musc migraine Morteza Meza DO Work Phone: Start: 08-23-2022 End: 08-23-2022 Injection single/smart energy specialist trigger point 3/> muscles Morteza Meza DO [...] Levi Florez MD Start: 12-30-2013 End: 12-30-2013 MMWes Florez MD Start: 02-19-2013 End: 06-16-2014 Echocardiography Anita Corley PA-C Work Phone: Start: 02-19-2013 End: 02-19-2013 Follow Up Appt 6 months Anita ward PA-C Work Phone: Start: 02-19-2013 End: 02-19-2013 Wes Corley PA-C Work Phone: Start: 08-14-2012 End: [...] Treatment Date Care Activity Detail Author Start: 05-11-2025 ambulatory Ambulatory Facility:[facility] Start: 04-26-2025 ambulatory Ambulatory Facility:[facility] Start: 03-19-2025 End: 03-19-2025 Patient encounter procedure Pain Management Comment on above: Follow Up Start: 02-25-2025 End: 02-25-2025 Admission to same day surgery center 02/25/2025 2:45 PM EDT - 02/25/2025 3:00 PM EDT Surgery PAIN KANG PROCEDURES [address] [facility] [place] [place] [address] Vini Mcdonald MD [address] [place], [place] [id number] INJECTION TRIGGER POINT THREE OR MORE MUSCLES (mid/lower back x 1 visit) PAIN KANG PROCEDURES Comment on above: INJECTION TRIGGER POINT THREE OR MORE MU SCLES (mid/lower back x 1 visit) Start: 02-25-2025 End: 02-25-2025 Injection single/smart energy specialist trigger point 3/> muscles INJECTION TRIGGER POINT THREE OR MORE MUSCLES Myofascial pain syndrome 02/25/2025 2:45 PM EDT MR PAIN KANG Start: 02-25-2025 Subsequent hospital visit by physician 02/25/2025 2:45 PM EDT Hospital Encounter PAIN KANG PROCEDURES [address] [place] [address] Vini Mcdonald MD [address] [place] [address] Myofascial pain syndrome [M79.18] PAIN KANG PROCEDURES Comment on above: Myofascial pain syndrome [M79.18] Start: 02-23-2025 End: 02-23-2025 Admission to same day surgery center 02/23/2025 4:00 PM EDT - 02/23/2025 4:30 PM EDT Surgery PAIN KANG PROCEDURES [address] [place] [address] Vini Mcdonald MD [address] [place] [address] INJECTION TRIGGER POINT THREE OR MORE MUSCLES (neck/upper back x 1 visit) PAIN KANG PROCEDURES Comment on above: INJECTION TRIGGER POINT THREE OR MORE MU SCLES (neck/upper back x 1 visit) Start: 02-23-2025 End: 02-23-2025 Injection single/smart energy specialist trigger point 3/> muscles INJECTION TRIGGER POINT THREE OR MORE MUSCLES Myofascial pain syndrome 02/23/2025 4:00 PM EDT MR PAIN KANG Start: 02-23-2025 Subsequent hospital visit by physician 02/23/2025 4:00 PM EDT Hospital Encounter PAIN KANG PROCEDURES [address] [place] [address] Vini Mcdonald MD [address] [place] [address] Myofascial pain syndrome [M79.18] PAIN KANG PROCEDURES Comment on above: Myofascial pain syndrome [M79.18] Start: 02-08-2025 Influenza vaccination [facility] Start: 01-05-2025 End: 01-05-2025 Admission to same day surgery center 01/05/2025 3:30 PM EDT - 01/05/2025 4:00 PM EDT Surgery PAIN KANG PROCEDURES [address] [place] [address] Vini Mcdonald MD [address] [place] [address] CHEMODENERVATION OF MUSCLE(S) INNERVATED BY FACIAL, TRIGEMINAL, CERVICAL SPINAL AND ACCESSORY NERVES, BILATERAL PAIN KANG PROCEDURES Comment on above: CHEMODENERVATION OF MUSCLE(S) INNERVATED BY FACIAL, TRIGEMINAL, CERVICAL SPINAL AND ACCESSORY NERVES, BILATERAL Start: 01-05-2025 Subsequent hospital visit by physician 01/05/2025 3:30 PM EDT Hospital Encounter PAIN KANG PROCEDURES [address] [place] [address] Vini Mcdonald MD [address] [place] [address] 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 [G43.711] PAIN KANG PROCEDURES Comment on above: Intractable chronic migraine without aur a and with status migrainosus [G43.711] Start: 01-05-2025 End: 01-05-2025 Chemodervate facial/trigem/cerv musc migraine MR PAIN KANG Start: 01-05-2025 End: 01-05-2025 Patient encounter procedure 01/05/2025 2:45 PM EDT Office Visit Pain Management [address] [place] [address] Erika Conway PA-C [address] [place] [address] Follow up ok per [facility] Comment on above: Follow up ok gaudencio Diana Start: 12-31-2024 End: 12-31-2024 Admission to same day surgery center 12/31/2024 3:30 PM EDT - 12/31/2024 4:00 PM EDT Surgery PAIN KANG PROCEDURES [address] [place] [address] Vini Mcdonald MD [address] [place] [address] INJECTION TRIGGER POINT THREE OR MORE MUSCLES (mid/lower back) PAIN KANG PROCEDURES Comment on above: INJECTION TRIGGER POINT THREE OR MORE MU SCLES (mid/lower back) Start: 12-31-2024 End: 12-31-2024 Injection single/smart energy specialist trigger point 3/> muscles INJECTION TRIGGER POINT THREE OR MORE MUSCLES Myofascial pain syndrome Fibromyalgia 12/31/2024 3:30 PM EDT MR PAIN KANG Start: 12-31-2024 Subsequent hospital visit by physician 12/31/2024 3:30 PM EDT Hospital Encounter PAIN KANG PROCEDURES [address] [place] [address] Vini Mcdonald MD [address] [place] [address] Myofascial pain syndrome [M79.18], Fibromyalgia [M79.7] PAIN KANG PROCEDURES Comment on above: Myofascial pain syndrome [M79.18], Fibro myalgia [M79.7] Start: 12-29-2024 End: 12-29-2024 Admission to same day surgery center 12/29/2024 3:30 PM EDT - 12/29/2024 4:00 PM EDT Surgery PAIN KANG PROCEDURES [address] [place] [address] Vini Mcdonald MD [address] [place] [address] INJECTION TRIGGER POINT THREE OR MORE MUSCLES (neck/upper back) PAIN KANG PROCEDURES Comment on above: INJECTION TRIGGER POINT THREE OR MORE MU SCLES (neck/upper back) Start: 12-29-2024 End: 12-29-2024 Injection single/smart energy specialist trigger point 3/> muscles INJECTION TRIGGER POINT THREE OR MORE MUSCLES Myofascial pain syndrome Fibromyalgia 12/29/2024 3:30 PM EDT MR [facility] Start: 12-29-2024 Subsequent hospital visit by physician 12/29/2024 3:30 PM EDT Hospital Encounter PAIN KANG PROCEDURES [address] [place] [address] Vini Mcdonald MD [address] [place] [address] Myofascial pain syndrome [M79.18], Fibromyalgia [M79.7] PAIN KANG PROCEDURES Comment on above: Myofascial pain syndrome [M79.18], Fibro myalgia [M79.7] Start: 11-05-2024 End: 11-05-2024 Admission to same day surgery center 11/05/2024 3:30 PM EDT - 11/05/2024 4:00 PM EDT Surgery PAIN KANG PROCEDURES [address] [place] [address] Vini Mcdonald MD [address] [place] [address] INJECTION TRIGGER POINT THREE OR MORE MUSCLES PAIN KANG PROCEDURES Comment on above: INJECTION TRIGGER POINT THREE OR MORE MU SCLES Start: 11-05-2024 End: 11-05-2024 Injection single/smart energy specialist trigger point 3/> muscles INJECTION TRIGGER POINT THREE OR MORE MUSCLES Myofascial pain syndrome 11/05/2024 3:30 PM EDT MR PAIN KANG Start: 11-05-2024 Subsequent hospital visit by physician 11/05/2024 3:30 PM EDT Hospital Encounter PAIN KANG PROCEDURES [address] [place] [address] Vini Mcdonald MD [address] [place] [address] Myofascial pain syndrome [M79.18] PAIN KANG PROCEDURES Comment on above: Myofascial pain syndrome [M79.18] Start: 11-03-2024 End: 11-03-2024 Admission to same day surgery center 11/03/2024 3:30 PM EDT - 11/03/2024 4:00 PM EDT Surgery PAIN KANG PROCEDURES [address] [place] [address] Vini Mcdonald MD [address] [place] [address] INJECTION TRIGGER POINT THREE OR MORE MUSCLES PAIN KANG PROCEDURES Comment on above: INJECTION TRIGGER POINT THREE OR MORE MU SCLES Start: 11-03-2024 End: 11-03-2024 Injection single/smart energy specialist trigger point 3/> muscles INJECTION TRIGGER POINT THREE OR MORE MUSCLES Myofascial pain syndrome Fibromyalgia 11/03/2024 3:30 PM EDT MR [facility] Start: 11-03-2024 Subsequent hospital visit by physician 11/03/2024 3:30 PM EDT Hospital Encounter PAIN AKNG PROCEDURES [address] [place] [address] Vini Mcdonald MD [address] [place] [address] Myofascial pain syndrome [M79.18], Fibromyalgia [M79.7] PAIN KANG PROCEDURES Comment on above: Myofascial pain syndrome [M79.18], Fibro myalgia [M79.7] Start: 10-06-2024 End: 10-06-2024 Admission to same day surgery center 10/06/2024 3:30 PM EDT - 10/06/2024 4:00 PM EDT Surgery PAIN KANG PROCEDURES [address] [place] [address] Vini Mcdonald MD [address] [place] [address] CHEMODENERVATION OF MUSCLE(S) INNERVATED BY FACIAL, TRIGEMINAL, [...] status migrainosus 10/06/2024 3:30 PM EDT MR CHUCK KAPADIA Start: 10-06-2024 Subsequent hospital visit by physician 10/06/2024 3:30 PM EDT Hospital Encounter PAIN KANG PROCEDURES [address] [place] [address] Vini Mcdonald MD [address] [place] [address] Migraine, unspecified, without mention of intractable migraine without mention of status migrainosus [G43.909] PAIN KANG PROCEDURES Comment on above: Migraine, unspecified, without mention o f intractable migraine without mention of status migrainosus [G43.909] Start: 09-18-2024 End: 12-18-2024 TOXASSURE FLEX 23, URINE TOXASSURE FLEX 23, URINE Lab Routine Myofascial pain syndrome Migraine, unspecified, without mention of intractable migraine without mention of status migrainosus Fibromyalgia intermediate frame tender (current) use of opiate analgesic Expected: 09/18/2024, Expires: 12/18/2024 [facility] Work Phone: Comment on above: Expected: 09/18/2024, Expires: Start: 09-18-2024 End: 09-18-2024 Patient encounter procedure 09/18/2024 1:30 PM EDT Office Visit Pain Management [address] [place] [address] Erika Conway PA-C [address] [place] [address] Follow Up Pain Management Comment on above: Follow Up Start: 09-10-2024 End: 09-10-2024 Admission to same day surgery center 09/10/2024 3:30 PM EDT - 09/10/2024 4:00 PM EDT Surgery PAIN KANG PROCEDURES [address] [place] [address] Vini Mcdonald MD [address] [place] [address] INJECTION TRIGGER POINT THREE OR MORE MUSCLES (lower back) PAIN KANG PROCEDURES Comment on above: INJECTION TRIGGER POINT THREE OR MORE MU SCLES (lower back) Start: 09-10-2024 End: 09-10-2024 Injection single/smart energy specialist trigger point 3/> muscles INJECTION TRIGGER POINT THREE OR MORE MUSCLES Myofascial pain syndrome 09/10/2024 3:30 PM EDT MR PAIN KANG Start: 09-10-2024 Subsequent hospital visit by physician 09/10/2024 3:30 PM EDT Hospital Encounter PAIN KANG PROCEDURES [address] [place] [address] Vini Mcdonald MD [address] [place] [address] Myofascial pain syndrome [M79.18] PAIN KANG PROCEDURES Comment on above: Myofascial pain syndrome [M79.18] Start: 09-08-2024 End: 09-08-2024 Admission to same day surgery center 09/08/2024 3:30 PM EDT - 09/08/2024 4:00 PM EDT Surgery PAIN KANG PROCEDURES [address] [place] [address] Vini Mcdonald MD [address] [place] [address] INJECTION TRIGGER POINT THREE OR MORE MUSCLES (neck/upper back) PAIN KANG PROCEDURES Comment on above: INJECTION TRIGGER POINT THREE OR MORE MU SCLES (neck/upper back) Start: 09-08-2024 End: 09-08-2024 Injection single/smart energy specialist trigger point 3/> muscles INJECTION TRIGGER POINT THREE OR MORE MUSCLES Myofascial pain syndrome 09/08/2024 3:30 PM EDT MR PAIN KANG Start: 09-08-2024 Subsequent hospital visit by physician 09/08/2024 3:30 PM EDT Hospital Encounter PAIN KANG PROCEDURES [address] [place] [address] Vini Mcdonald MD [address] [place] [address] Myofascial pain syndrome [M79.18] PAIN KANG PROCEDURES Comment on above: Myofascial pain syndrome [M79.18] Start: 07-16-2024 End: 07-16-2024 Admission to same day surgery center 07/16/2024 3:00 PM EST - 07/16/2024 3:30 PM EST Surgery PAIN KANG PROCEDURES [address] [place] [address] Vini Mcdonald MD [address] [place] [address] INJECTION TRIGGER POINT THREE OR MORE MUSCLES (Lower) PAIN KANG PROCEDURES Comment on above: INJECTION TRIGGER POINT THREE OR MORE MU SCLES (Lower) Start: 07-16-2024 End: 07-16-2024 Injection single/smart energy specialist trigger point 3/> muscles INJECTION TRIGGER POINT THREE OR MORE MUSCLES Myofascial pain syndrome 07/16/2024 3:00 PM EST PAIN KANG Start: 07-16-2024 Subsequent hospital visit by physician 07/16/2024 3:00 PM EST Hospital Encounter PAIN KANG PROCEDURES [address] [place] [address] Vini Mcdonald MD [address] [place] [address] Myofascial pain syndrome [M79.18] PAIN KANG PROCEDURES Comment on above: Myofascial pain syndrome [M79.18] Start: 07-14-2024 End: 07-14-2024 Admission to same day surgery center 07/14/2024 3:00 PM EST - 07/14/2024 3:30 PM EST Surgery PAIN KANG PROCEDURES [address] [place] [address] Vini Mcdonald MD [address] [facility] [place] [address] INJECTION TRIGGER POINT THREE OR MORE MUSCLES (upper back) PAIN KANG PROCEDURES Comment on above: INJECTION TRIGGER POINT THREE OR MORE MU SCLES (upper back) Start: 07-14-2024 End: 07-14-2024 Injection single/smart energy specialist trigger point 3/> muscles INJECTION TRIGGER POINT THREE OR MORE MUSCLES Myofascial pain syndrome 07/14/2024 3:00 PM EST MR CHUCK KAPADIA Start: 07-14-2024 Subsequent hospital visit by physician 07/14/2024 3:00 PM EST Hospital Encounter PAIN KANG PROCEDURES [address] [facility] [place] [address] Vini Mcdonald MD [address] [place] [address] Myofascial pain syndrome [M79.18] PAIN KANG PROCEDURES Comment on above: Myofascial pain syndrome [M79.18] Start: 07-07-2024 End: 07-07-2024 Admission to same day surgery center 07/07/2024 3:30 PM EST - 07/07/2024 4:00 PM EST Surgery PAIN KANG PROCEDURES [address] [place] [address] Vini Mcdonald MD [address] [facility] [place] [address] CHEMODENERVATION OF MUSCLE (S), MUSCLE (S) INNERVATED BY FACIAL NERVE PAIN KANG PROCEDURES Comment on above: CHEMODENERVATION OF MUSCLE (S), MUSCLE ( S) INNERVATED BY FACIAL NERVE Start: 07-07-2024 End: 07-07-2024 Chemodnrvtj musc musc innervated facial nrv unil MR PAIN KANG Start: 07-07-2024 Subsequent hospital visit by physician 07/07/2024 3:30 PM EST Hospital Encounter PAIN KANG PROCEDURES [address] [place] [address] Vini Mcdonald MD [address] [facility] [place] [place] [address] Migraine, unspecified, without mention of intractable migraine without mention of status migrainosus [G43.909] PAIN KANG PROCEDURES Comment on above: Migraine, unspecified, without mention o f intractable migraine without mention of status migrainosus [G43.909] Start: 06-23-2024 End: 06-23-2024 Patient encounter procedure 06/23/2024 1:00 PM EST Office Visit Pain Management [address] [place] [address] Erika Conway PA-C [address] [place] [address] Follow Up Pain Management Comment on above: Follow Up Start: 05-19-2024 End: 05-19-2024 Admission to same day surgery center 05/19/2024 3:30 PM EST - 05/19/2024 4:00 PM EST Surgery PAIN KANG PROCEDURES [address] [place] [address] Vini Mcdonald MD [address] [place] [address] INJECTION TRIGGER POINT THREE OR MORE MUSCLES(low back) PAIN KANG PROCEDURES Comment on above: INJECTION TRIGGER POINT THREE OR MORE MU SCLES(low back) Start: 05-19-2024 Subsequent hospital visit by physician 05/19/2024 3:30 PM EST Hospital Encounter PAIN KANG PROCEDURES [address] [place] [address] Vini Mcdonald MD [address] [place] [address] Myofascial pain syndrome [M79.18] PAIN AKNG PROCEDURES Comment on above: Myofascial pain syndrome [M79.18] Start: 05-19-2024 End: 05-19-2024 Injection single/smart energy specialist trigger point 3/> muscles MR PAIN KANG Start: 05-14-2024 End: 05-14-2024 Admission to same day surgery center 05/14/2024 3:30 PM EST - 05/14/2024 4:00 PM EST Surgery PAIN KANG PROCEDURES [address] [place] [address] Vini Mcdonald MD [address] [place] [address] INJECTION TRIGGER POINT THREE OR MORE MUSCLES (upper back and neck) PAIN KANG PROCEDURES Comment on above: INJECTION TRIGGER POINT THREE OR MORE MU SCLES (upper back and neck) Start: 05-14-2024 End: 05-14-2024 Injection single/smart energy specialist trigger point 3/> muscles INJECTION TRIGGER POINT THREE OR MORE MUSCLES Myofascial pain syndrome 05/14/2024 3:30 PM EST MR PAIN KANG Start: 05-14-2024 Subsequent hospital visit by physician 05/14/2024 3:30 PM EST Hospital Encounter PAIN KANG PROCEDURES [address] [place] [address] Vini Mcdonald MD [address] [place] [address] Myofascial pain syndrome [M79.18] PAIN KANG PROCEDURES Comment on above: Myofascial pain syndrome [M79.18] Start: 05-12-2024 End: 05-12-2024 Admission to same day surgery center 05/12/2024 3:30 PM EST - 05/12/2024 4:00 PM EST Surgery PAIN KANG PROCEDURES [address] [place] [address] Vini Mcdonald MD [address] [place] [address] INJECTION TRIGGER POINT THREE OR MORE MUSCLES (upper back and neck) PAIN KANG PROCEDURES Comment on above: INJECTION TRIGGER POINT THREE OR MORE MU SCLES (upper back and neck) Start: 05-12-2024 End: 05-12-2024 Injection single/smart energy specialist trigger point 3/> muscles MR PAIN KANG Start: 05-12-2024 Subsequent hospital visit by physician 05/12/2024 3:30 PM EST Hospital Encounter PAIN KANG PROCEDURES [address] [place] [address] Vini Mcdonald MD [address] [place] [address] Myofascial pain syndrome [M79.18] PAIN KANG PROCEDURES Comment on above: Myofascial pain syndrome [M79.18] Start: 04-02-2024 Subsequent hospital visit by physician 04/02/2024 Hospital Encounter PAIN KANG PROCEDURES [address] [place] [address] Vini Mcdonald MD [address] [place] [address] 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 [G43.711] PAIN KANG PROCEDURES Comment on above: Intractable chronic migraine without aur a and with status migrainosus [G43.711] Start: 03-25-2024 End: 03-25-2024 Patient encounter procedure 03/25/2024 2:30 PM EDT Office Visit Pain Management [address] [place] [address] Erika Conway PA-C [address] [place] [address] Follow Up Pain Management Comment on above: Follow Up Start: 03-25-2024 End: 06-24-2024 TOXASSURE FLEX 23, URINE TOXASSURE FLEX 23, URINE Lab Routine Fibromyalgia intermediate frame tender (current) use of opiate analgesic Expected: 03/25/2024, Expires: 06/24/2024 [facility] Work Phone: Comment on above: Expected: 03/25/2024, Expires: Start: 03-12-2024 End: 03-12-2024 Admission to same day surgery center 03/12/2024 3:30 PM EDT - 03/12/2024 4:00 PM EDT Surgery PAIN KANG PROCEDURES [address] [place] [address] Vini Mcdonald MD [address] [facility] [place] [address] INJECTION TRIGGER POINT THREE OR MORE MUSCLES (mid/lower back x 1 visit) PAIN KANG PROCEDURES Comment on above: INJECTION TRIGGER POINT THREE OR MORE MU SCLES (mid/lower back x 1 visit) Start: 03-12-2024 End: 03-12-2024 Injection single/smart energy specialist trigger point 3/> muscles INJECTION TRIGGER POINT THREE OR MORE MUSCLES Myofascial pain syndrome 03/12/2024 3:30 PM EDT MR CHUCK KAPADIA Start: 03-12-2024 Subsequent hospital visit by physician [...] PM EDT Surgery PAIN KANG PROCEDURES [address] [place] [address] Vini Mcdonald MD [address] [address] INJECTION TRIGGER POINT THREE OR MORE MUSCLES (neck/upper back) PAIN KANG PROCEDURES Comment on above: INJECTION TRIGGER POINT THREE OR MORE MU SCLES (neck/upper back) Start: 03-10-2024 End: 03-10-2024 Injection single/smart energy specialist trigger point 3/> muscles INJECTION TRIGGER POINT THREE OR MORE MUSCLES Myofascial pain syndrome 03/10/2024 3:30 PM EDT MR PAIN KANG Start: 03-10-2024 Subsequent hospital visit by physician 03/10/2024 3:30 PM EDT Hospital Encounter PAIN KANG PROCEDURES [address] [place] [address] Vini Mcdonald MD [address] [place] [address] Myofascial pain syndrome [M79.18] PAIN KANG PROCEDURES Comment on above: Myofascial pain syndrome [M79.18] Start: 02-25-2024 End: 02-25-2024 Admission to same day surgery center 02/25/2024 2:00 PM EDT - 02/25/2024 2:30 PM EDT Surgery PAIN KANG PROCEDURES [address] [place] [address] Vini Mcdonald MD [address] [place] [address] CHEMODENERVATION OF MUSCLE (S), MUSCLE (S) INNERVATED [...] of status migrainosus 02/25/2024 2:00 PM EDT [facility] Start: 02-25-2024 Subsequent hospital visit by physician 02/25/2024 2:00 PM EDT Hospital Encounter PAIN KANG PROCEDURES [address] [place] [address] Vini Mcdonald MD [address] [place] [address] Intractable chronic migraine without aura and with [...] PM EDT Surgery PAIN KANG PROCEDURES [address] [place] [address] Vini Mcdonald MD [address] [place] [address] CHEMODENERVATION OF MUSCLE (S), MUSCLE (S) INNERVATED [...] status migrainosus 02/11/2024 4:00 PM EDT MR CHUCK KAPADIA Start: 02-11-2024 Subsequent hospital visit by physician 02/11/2024 4:00 PM EDT Hospital Encounter PAIN KANG PROCEDURES [address] [place] [address] Vini Mcdonald MD [address] [place] [address] 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 [G43.711] PAIN KANG PROCEDURES Comment on above: Intractable chronic migraine without aur a and with status migrainosus [G43.711] Start: 02-09-2024 Covid-19 Vaccine ( season) Covid-19 Vaccine () [facility] Start: 02-09-2024 Covid-19 Vaccine ( season) Covid-19 Vaccine ( season) [facility] Start: 02-09-2024 Influenza vaccination [facility] Start: 01-14-2024 End: 01-14-2024 Admission to same day surgery center 01/14/2024 3:00 PM EDT - 01/14/2024 3:30 PM EDT Surgery PAIN KANG PROCEDURES [address] [facility] [place] [address] Vini Mcdonald MD [address] [place] [address] bilateral sternocleidomastoid, splenius capitis, trapezius, and levator scapulae muscles INJECTION TRIGGER POINT THREE OR MORE MUSCLES PAIN KANG PROCEDURES Comment on above: bilateral sternocleidomastoid, splenius capitis, trapezius, and levator scapulae muscles INJECTION TRIGGER POINT THREE OR MORE MUSCLES Start: 01-14-2024 End: 01-14-2024 Injection single/smart energy specialist trigger point 3/> muscles INJECTION TRIGGER POINT THREE OR MORE MUSCLES Fibromyalgia 01/14/2024 3:00 PM EDT MR CHUCK KAPADIA Start: 01-14-2024 Subsequent hospital visit by physician 01/14/2024 3:00 PM EDT Hospital Encounter PAIN KANG PROCEDURES [address] [facility] [place] [address] Vini Mcdonald MD [address] [place] [address] Fibromyalgia [M79.7] PAIN KANG PROCEDURES Comment on above: Fibromyalgia [M79.7] Start: 12-26-2023 End: 12-26-2023 Admission to same day surgery center PAIN KANG PROCEDURES Comment on above: bilateral sternocleidomastoid, splenius capitis, trapezius, and levator scapulae muscles INJECTION TRIGGER POINT THREE OR MORE MUSCLES Start: 12-26-2023 End: 12-26-2023 Injection single/smart energy specialist trigger point 3/> muscles INJECTION TRIGGER POINT THREE OR MORE MUSCLES Fibromyalgia 12/26/2023 2:30 PM EDT MR CHUCK KAPADIA Start: 12-26-2023 Subsequent hospital visit by physician PAIN KANG PROCEDURES Comment on above: Fibromyalgia [M79.7] Start: 12-24-2023 End: 12-24-2023 Admission to same day surgery center PAIN KANG PROCEDURES Comment on above: bilateral quadratus lumborum, latissimus dorsi, erector spinae, and rhomboid muscles INJECTION TRIGGER POINT THREE OR MORE MUSCLES Start: 12-24-2023 End: 12-24-2023 Injection single/smart energy specialist trigger point 3/> muscles INJECTION TRIGGER POINT THREE OR MORE MUSCLES Fibromyalgia 12/24/2023 2:30 PM EDT MR CHUCK KAPADIA Start: 12-24-2023 Subsequent hospital visit by physician PAIN KANG PROCEDURES Comment on above: Fibromyalgia [M79.7] Start: 12-18-2023 End: 12-18-2023 Patient encounter procedure 12/18/2023 2:30 PM EDT Office Visit Pain Management [address] [place] [address] Vini Mcdonald MD [address] [place] [address] FOLLOW UP Pain Management Comment on above: FOLLOW UP Start: 11-14-2023 End: 11-14-2023 Chemodervate facial/trigem/cerv musc migraine CHEMODENERVATION OF MUSCLE(S) INNERVATED BY FACIAL, TRIGEMINAL, CERVICAL SPINAL AND ACCESSORY NERVES, BILATERAL Migraine, unspecified, without mention of intractable migraine without mention of status migrainosus 11/14/2023 1:28 PM EDT MR CHUCK KAPADIA Start: 11-12-2023 End: 11-12-2023 Admission to same day surgery center 11/12/2023 3:15 PM EDT - 11/12/2023 3:30 PM EDT Surgery PAIN KANG PROCEDURES [address] [place] [address] Dejon Andres MD [address] [place] [address] CHEMODENERVATION OF MUSCLE(S) INNERVATED BY FACIAL, TRIGEMINAL, [...] migraine type 11/12/2023 3:15 PM EDT MR CHUCK KAPADIA Start: 11-12-2023 Subsequent hospital visit by physician 11/12/2023 3:15 PM EDT Hospital Encounter PAIN KANG PROCEDURES [address] [place] [address] Dejon Andres MD [address] [place] [address] Migraine without status migrainosus, not intractable, unspecified migraine type [G43.909] PAIN KANG PROCEDURES Comment on above: Migraine without status migrainosus, not intractable, unspecified migraine type [G43.909] Start: 10-29-2023 End: 10-29-2023 Patient encounter procedure 10/29/2023 2:45 PM EDT Office Visit Pain Management [address] [facility] [place] [address] Erika Conway PA-C [address] [facility] [place] [address] FOLLOW UP Pain Management Comment on above: FOLLOW UP Start: 10-24-2023 End: 10-24-2023 Admission to same day surgery center 10/24/2023 9:30 AM EDT - 10/24/2023 9:45 AM EDT Surgery PAIN KANG PROCEDURES [address] [facility] [place] [address] Dejon Andres MD [address] [place] [address] INJECTION TRIGGER POINT THREE OR MORE MUSCLES PAIN KANG PROCEDURES Comment on above: INJECTION TRIGGER POINT THREE OR MORE MU SCLES Start: 10-24-2023 End: 10-24-2023 Injection single/smart energy specialist trigger point 3/> muscles INJECTION TRIGGER POINT THREE OR MORE MUSCLES Myofascial pain syndrome 10/24/2023 9:30 AM EDT MR PAIN KANG Start: 10-24-2023 Subsequent hospital visit by physician 10/24/2023 9:30 AM EDT Hospital Encounter PAIN KANG PROCEDURES [address] [facility] [place] [address] Dejon Andres MD [address] [place] [address] Myofascial pain syndrome [M79.18] PAIN KANG PROCEDURES Comment on above: Myofascial pain syndrome [M79.18] Start: 08-12-2023 Ambulation without limitation [facility] Start: 08-12-2023 Elevation of head of bed [facility] Start: 08-12-2023 Medical regimen orders management [facility] Start: 08-12-2023 Medication education [facility] Start: 08-12-2023 Patient discharge [facility] Start: 03-04-2024 Procedure discontinued [facility] Start: 08-12-2023 Taking patient vital signs [facility] Start: 08-12-2023 Vital signs measurements [facility] Start: 06-10-2023 Behavioral Health Screening Behavioral Health Screening [facility] Start: 06-10-2023 Depression Assessment Depression Assessment [facility] Start: 02-08-2023 Covid-19 Vaccine () Covid-19 Vaccine () [facility] Start: 02-08-2023 Influenza vaccination [facility] Start: 01-30-2023 End: 04-01-2023 TOXASSURE FLEX 23, URINE TOXASSURE FLEX 23, URINE Lab Routine Other chronic pain retirement (current) use of opiate analgesic Expected: 01/30/2023, Expires: 04/01/2023 [facility] Work Phone: Comment on above: Expected: 01/30/2023, Expires: 3 Start: 10-23-2022 End: 12-23-2022 TOXASSURE FLEX 23, URINE TOXASSURE FLEX 23, URINE Lab Routine retirement (current) use of opiate analgesic Expected: 10/23/2022, Expires: 12/23/2022 [facility] Work Phone: Comment on above: Expected: 10/23/2022, Expires: 3 Start: 2022 COLOGUARD (FIT-DNA) COLOGUARD (FIT-DNA) [facility] Start: 2022 Colonoscopy COLONOSCOPY [facility] Start: 2022 COLORECTAL CANCER SCREENING COLORECTAL CANCER SCREENING [facility] Start: [address] COLONOGRAPHY [facility] Start: 2022 DIABETES SCREEN DIABETES SCREEN [facility] Start: 2022 Diabetes Screening Diabetes Screening [facility] Start: 2022 FECAL OCCULT BLOOD FECAL OCCULT BLOOD [facility] Start: 2022 Lipid 1996 panel - Serum or Plasma Lipid Screening [facility] Start: 2022 Lipid panel Lipid Screening [facility] Start: 2022 LIPID SCREEN LIPID SCREEN [facility] Start: 2022 Screening for malignant neoplasm of colon [facility] Start: 2022 SIGMOIDOSCOPY SIGMOIDOSCOPY [facility] Start: 07-10-2022 End: 09-09-2022 TOXASSURE FLEX 23, URINE TOXASSURE FLEX 23, URINE Lab Routine retirement (current) use of opiate analgesic Expected: 07/10/2022, Expires: 09/09/2022 [facility] Work Phone: Comment on above: Expected: 07/10/2022, Expires: 3 Start: 06-10-2022 DEPRESSION ASSESSMENT DEPRESSION ASSESSMENT [facility] Start: 02-08-2022 Influenza vaccination [facility] Start: 01-30-2022 End: 04-01-2022 DRUG SCR TOXASURE DRUG SCR TOXASURE Lab Routine Vttxprf-Vnacx-Mxzei syndrome POTS (postural orthostatic tachycardia syndrome) Myofascial pain syndrome Expected: 01/30/2022, Expires: 04/01/2022 [facility] Work Phone: Comment on above: Expected: 01/30/2022, Expires: 2 Start: 06-26-2021 COVID-19 VACCINE (4 - Booster for Pfizer series) COVID-19 VACCINE (4 - Booster for Pfizer series) [facility] Start: 06-26-2021 COVID-19 VACCINE (4 - Pfizer series) COVID-19 VACCINE (4 - Pfizer series) [facility] Start: 06-10-2021 DEPRESSION ASSESSMENT DEPRESSION ASSESSMENT [facility] Start: 10-23-2017 End: 10-23-2017 Patient encounter procedure Appointment [facility] Work Phone: Start: 2017 Mammography [facility] Start: 2017 Screening for malignant neoplasm of breast Mammogram Screening [facility] Start: 04-18-2017 End: 04-18-2017 Patient encounter procedure Appointment [facility] Work Phone: Start: 04-18-2017 End: 04-18-2017 Echocardiography Echocardiogram (complete) [facility] Work Phone: Start: 04-18-2017 End: 04-18-2017 Follow Up Appt 6 months Follow Up Appt 6 months [facility] Work Phone: Start: 04-18-2017 End: 04-18-2017 PFM PFM [facility] Work Phone: Start: 10-11-2016 End: 10-11-2016 Follow Up Appt 6 months Follow Up Appt 6 months [facility] Work Phone: Start: 10-11-2016 End: 10-11-2016 MMM MMM [facility] Work Phone: Start: 01-09-2016 End: 01-09-2016 Ecg routine ecg w/least 12 lds w/i&r EKG (In office) [facility] Work Phone: Start: 01-09-2016 End: 01-09-2016 Echocardiography Echocardiogram (complete) [facility] Work Phone: Start: 01-09-2016 End: 01-09-2016 Follow Up Appt 9 months Follow Up Appt 9 months [facility] Work Phone: Start: 01-09-2016 End: 01-09-2016 PFM PFM [facility] Work Phone: Start: 06-24-2015 End: 06-24-2015 Echocardiography Echocardiogram (complete) [facility] Work Phone: Start: 06-24-2015 End: 06-24-2015 Follow Up Appt 6 months Follow Up Appt 6 months [facility] Work Phone: Start: 06-24-2015 End: 06-24-2015 MMM MMM [facility] Work Phone: Start: 07-07-2014 End: 07-07-2014 Ecg routine ecg w/least 12 lds w/i&r EKG (In office) [facility] Work Phone: Start: 07-07-2014 End: 07-07-2014 Follow Up Appt 6 months Follow Up Appt 6 months [facility] Work Phone: Start: 07-07-2014 End: 07-07-2014 PFM PFM [facility] Work Phone: Start: 05-10-2014 End: 12-30-2013 Echocardiography Echocardiogram (complete) [facility] Work Phone: Start: 12-30-2013 End: 12-30-2013 Follow Up Appt 6 months Follow Up Appt 6 months [facility] Work Phone: Start: 12-30-2013 End: 12-30-2013 MMM MMM [facility] Work Phone: Start: 02-19-2013 End: 02-19-2013 Echocardiography Echocardiogram (complete) [facility] Work Phone: Start: 02-19-2013 End: 02-19-2013 Follow Up Appt 6 months Follow Up Appt 6 months [facility] Work Phone: Start: 02-19-2013 End: 02-19-2013 PFM PFM [facility] Work Phone: Start: 08-14-2012 End: 02-10-2013 Ecg routine ecg w/least 12 lds w/i&r EKG (In office) [facility] Work Phone: Start: 08-14-2012 End: 08-14-2012 Follow Up Appt 6 months Follow Up Appt 6 months [facility] Work Phone: Start: 08-14-2012 End: 02-10-2013 MMM MMM [facility] Work Phone: Start: 02-01-2012 End: 02-01-2012 Ecg routine ecg w/least 12 lds w/i&r EKG (In office) [facility] Work Phone: Start: 02-01-2012 End: 02-01-2012 Echocardiography Echocardiogram (complete) [facility] Work Phone: Start: 02-01-2012 End: 02-10-2013 Follow Up Appt 6 months Follow Up Appt 6 months [facility] Work Phone: Start: 06-29-2011 End: 06-29-2011 Follow Up Appt 6 months Follow Up Appt 6 months [facility] Work Phone: Start: 10-17-2007 HPV TESTING HPV TESTING [facility] Start: 10-17-2007 Screening for malignant neoplasm of cervix HPV Testing [facility] Start: 01-08-2002 Medicare Annual Wellness Visit Medicare Annual Wellness Visit [facility] Start: 1998 PAP TESTING PAP TESTING [facility] Start: 1998 Screening for malignant neoplasm of cervix [facility] Start: 1996 Hepatitis B Vaccine (1 of 3 - 19+ 3-dose series) Hepatitis B Vaccine (1 of 3 - 19+ 3-dose series) [facility] Start: 1996 Urine microalbumin profile [facility] Start: 10-17-1995 Anxiety Screening Anxiety Screening [facility] Start: 10-17-1995 Depression Screening Depression Screening [facility] Start: 10-17-1995 HEPATITIS C SCREENING HEPATITIS C SCREENING [facility] Start: 10-17-1995 Hepatitis C screening Hepatitis C Screening [facility] Start: 10-17-1995 HIV SCREENING HIV SCREENING [facility] Start: 10-17-1995 HIV screening HIV Screening [facility] Start: 1989 Adult depression screening assessment DEPRESSION SCREENING [facility] Start: 1982 COVID-19 VACCINE (#1) COVID-19 VACCINE (#1) [facility] Start: 1982 COVID-19 VACCINE (1) COVID-19 VACCINE (1) [facility] Start: 1977 HEPATITIS B (1 of 3 - 3-dose series) HEPATITIS B (1 of 3 - 3-dose series) [facility] Start: 1977 Hepatitis B Vaccine (1 of 3 - 3-dose series) Hepatitis B Vaccine (1 of 3 - 3-dose series) [facility] Chemodnrvtj musc mus c innervated facial nrv unil CHEMODENERVATION OF MUSCLE (S), MUSCLE (S) INNERVATED BY FACIAL NERVE 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 Migraine, unspecified, without mention of intractable migraine without mention of status migrainosus [facility] Chemodnrvtj musc mus c innervated facial nrv unil CHEMODENERVATION OF MUSCLE (S), MUSCLE (S) INNERVATED BY FACIAL NERVE 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 MR PAIN KANG Injection single/smart energy specialist trigger point 3/> muscles INJECTION TRIGGER POINT THREE OR MORE MUSCLES Myofascial pain syndrome MR PAIN KANG Patient referral [facility] Work Phone: 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 HELPER Work Phone: [facility] 09-07-2020 COVID-19 original vaccine, age 12+ yr, monovalent (PFIZER-BIONTECH - PURPLE TOP) Demian Shravan DINING ROOM ATTENDANT CAFETERIA.PHOTOGRAPHER HELPER Work Phone: [facility] 08-17-2020 COVID-19 original vaccine, age 12+ yr, monovalent (PFIZER-BIONTECH - PURPLE TOP) 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 2019 Medicaid [id number] 2013 Unknown [id number] Self-pay [id number] 2002 Medicaid [id number] 2002 Medicare MEDICARE MEDICAR E A AND B [id number] 2002-Present [phone] [place] [id number] Medicare [id number] 2002 Medicare [id number] 2001 Medicare MEDICARE MEDICAR E A AND B [id number] 2001-Present [phone] [address] [place] [id number] Medicare [id number] 2001 Medicare [id number] Unknown [id number] Unknown [id number] Unknown [id number] Unknown [id number] Unknown [id number] Unknown [id number] Unknown [id number] Unknown [id number] Social History Date Type Detail Facility Start: 01-30-2022 End: 12-23-2023 Tobacco smoking status NHIS Never smoked tobacco [facility] Start: 04-24-2016 End: 09-18-2024 Alcohol intake Current drinker of alcohol (finding) [facility] Start: 1975 Sex Assigned At Not on file [facility] Start: 1975 Sex Assigned At Female C [facility] Start: 11-18-2021 End: 04-25-2022 Exposure to SARS-CoV-2 (event) Not sure [facility] Start: 01-30-2022 Tobacco use and exposure Smokeless tobacco non-user [facility] Start: 10-10-2022 End: 11-27-2022 History of Social function [facility] Start: 10-10-2022 End: 11-27-2022 Tobacco use panel [facility] Start: 05-11-2012 National Score (1-100), lower number is lower risk 66 [facility] Start: 11-23-2021 Gender identity Identifies as female gender (finding) [facility] Start: 11-23-2021 Sexual orientation Heterosexual (ollie emmanuel) [facility] Start: 07-31-2023 Tobacco smoking stat us NHIS Unknown if ever smoked [facility] Start: 01-05-2025 Alcoholic beverage intake Ex-drinker (finding) [facility] NEGATED: Highlighted row [facility] Medical Equipment Procedure Code Equipment Code Equipment Origin al Text Equipment Identifier Dates Tympanostomy tube [id number] FDA Start: 08-12-2023 Tympanostomy tube [id number] FDA Start: 08-12-2023 Goals Date Patient Goal Desired Activity /State Functional Status Date Assessment Result Facility 09-29-2014 Are you deaf, or do you have serious difficulty hearing No 09/29/2014 10:36 AM Octavia Berumdez RN No [facility] 09-29-2014 Are you blind, or do you have serious difficulty seeing, even when wearing glasses No 09/29/2014 10:36 AM Octavia Bermudez RN No [facility] 09-29-2014 Do you have serious difficulty walking or climbing stairs No 09/29/2014 10:36 AM Octavia Bermudez RN No [facility] 09-29-2014 Do you have difficul ty dressing or bathing No 09/29/2014 10:36 AM Octavia Bermudez RN No [facility] 09-29-2014 Because of a physica l, mental, or emotional condition, do you have difficulty doing errands alone such as visiting a physician's office or shopping No 09/29/2014 10:36 AM Octavia Bermudez RN No [facility] Mental Status Date Assessment Result Facility 08-12-2023 Cognitive function Touch/Shaking [facility] Work Phone: 09-29-2014 Because of a physica l, mental, or emotional condition, do you have serious difficulty concentrating, remembering, or making decisions No 09/29/2014 10:36 AM Octavia Bermudez RN [facility] Clinical Notes 08-09-2008 to 03-19-2025 Operative Report - Vini Mcdonald MD - 02/23/2025 4:27 PM EDTOperative Report - Vini Mcdonald MD - 02/23/2025 4:27 PM DAVIDTGail Crooks MA - 02/23/2025 3:52 PM EDTPatient Instructions Note Date & Type Note Facility 03-19-2025 Note HNO ID: [id number] Author: ERIKA CONWAY PA-C Service: ? Author Type: Physician Oil Field Pumper Type: Progress Notes Filed: 03/19/2025 14:52 Note Text: Neto Aguilar is a 49 year old female. The patient primarily being seen for generalized pain Patient was last seen on: 01/05/25 At that time, the treatment plan was: see notes Current Meds: oxycodone - am Efficacy: helps Side effects: denies TENS unit: didn't help, also had a reaction to the pads How often used: Benefit: Physical Therapy: years ago Last UDS: 09/18/24 Last injection: 02/25/25 trigger point injections - lower back, 02/23/25 - trigger point injections upper back, 01/05/25 - botox injection OARRS reviewed At the present time, the patient reports benefit with her present analgesic therapy. She denies any adverse effects. Since her previous visit, she denies any hospitalizations or ER visits. She states that the trigger point injections in the neck/upper back and lower back helped relieve 85% of her pain and have allowed her to be more active. The BOTOX injections helped decrease both the severity and frequency of her migraines by about 90%. She only had about 1 migraine the first month or two after the injections. She has noticed a slight increase in her migraines as she gets closer to the three month paulina. At that point she states that they typically start increasing in severity and frequency significantly. She is already scheduled for her next set at the 3 month paulina to keep them as controlled as possible. 02/25/2025 03/19/2025 INTAKE PAIN ASSESSMENT Are you having pain associated with your visit today? 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 Musculoskeletal: + neck pain, back pain, numbness, tingling, muscle cramps/weakness, stiffness, arthritis, leg pain at night, and leg pain with exertion. Neurological: Positive for headaches. Objective BP 149/91 (BP Site: Left Arm, BP Position: Sitting, BP Cuff Size: Small Adult) Pulse 80 Resp 17 Ht 170.2 cm (5' 7") Wt 47.2 kg (104 lb) LMP (more content not included)... [facility] 03-19-2025 Note HNO ID: [id number] Author: GAIL CROOKS MA Service: ? Author Type: Recapper Type: Progress Notes Filed: 03/19/2025 14:52 Note Text: Room 2 Follow up: [facility] 02-23-2025 Surgery Surgical operation note Summary: TPI PATIENT: Capri R Aguilar SURGEON: Primary: Vini Mcdonald MD : [...] 0.25% bupivacaine; distributed ~equally at each site. [facility] Work Phone: 02-23-2025 Surgical operatio n [...] at each site. documented in this encounter [facility] 02-23-2025 Nurse Note TPI Injections Pt does not take any blood thinners Pt is not diabetic Pt is not on any antibiotics Pt did not take any sedation Gail Crooks MA February 23, 2025 3:53 PM [facility] 02-23-2025 Nurse Note TPI Injections Pt does not take any blood thinners Pt is not diabetic Pt is not on any antibiotics Pt did not take any sedation Gail Crooks MA February 23, 2025 3:53 PM documented in this encounter [facility] 02-12-2025 Telephone encounter Note Pt requesting TPI, please advise if you will order. Roxana Byrne RN February 12, 2025 3:07 PM [facility] 02-12-2025 Miscellaneous Notes Pt requesting TPI, please advise if you will order. Roxana Byrne RN February 12, 2025 3:07 PM documented in this encounter [facility] 02-05-2025 Telephone encounter Note The following [...] as tolerated. Authorizing Provider: ERIKA CONWAY PA-C [facility] 02-05-2025 Miscellaneous Notes The following approved [...] For clinical consultation, please call . ==== [facility] Urine Drug Screen and Benzo Confirm Urine Panel: No results found for: "UQCANN", "UQBNZL", "GEE0GUK", "UQAMPH", "UQMAMP", "UQBUPRE", "UQNORBUP", "UQMTHD", "UQEDDP", "UQTRAM", "UQDTRM", "UQFNTL", "UQNFTL", "UQCODE", "UQMORP", "UQDCDN", "UQHCOD", "UQOXYC", "UQHMOR", "UQOXYM", "UQCREA", "UQPH", "UQSPGR", "UQOXID", "UQSPQ" Last Opioid agreement effective date: 09/18/2024 Recent Visits Date Type Provider Dept 01/05/25 Office Visit Erika Conway PA-C [facility] 09/18/24 Office Visit Erika Conway PA-C [facility] 06/23/24 Office Visit Erika Conway PA-C [facility] 03/25/24 Office Visit Erika Conway PA-C [facility] 12/18/23 Office Visit Vini Mcdonald MD [facility] 10/29/23 Office Visit Erika Cnoway PA-C [facility] 09/19/23 Office Visit Erika Conway PA-C [facility] Showing recent visits within past 540 days with a meds authorizing provider and meeting all other requirements Future Appointments Date Type Provider Dept 03/19/25 Appointment Erika Conway PA-C [facility] Showing future appointments within next 150 days with a meds authorizing provider and meeting all other requirements Please review and advise. Sharyn Page MA documented in this encounter [facility] 02-05-2025 Telephone encounter Note Patient phones [...] For clinical consultation, please call . ==== [facility] Urine Drug Screen and Benzo Confirm Urine Panel: No results found for: "UQCANN", "UQBNZL", "HXW0YUQ", "UQAMPH", "UQMAMP", "UQBUPRE", "UQNORBUP", "UQMTHD", "UQEDDP", "UQTRAM", "UQDTRM", "UQFNTL", "UQNFTL", "UQCODE", "UQMORP", "UQDCDN", "UQHCOD", "UQOXYC", "UQHMOR", "UQOXYM", "UQCREA", "UQPH", "UQSPGR", "UQOXID", "UQSPQ" Last Opioid agreement effective date: 09/18/2024 Recent Visits Date Type Provider Dept 01/05/25 Office Visit Erika Conway PA-C [facility] 09/18/24 Office Visit Erika Conway PA-C [facility] 06/23/24 Office Visit Erika Conway PA-C [facility] 03/25/24 Office Visit Erika Conway PA-C [facility] 12/18/23 Office Visit Vini Mcdonald MD [facility] 10/29/23 Office Visit Erika Conway PA-C [facility] 09/19/23 Office Visit Erika Conway PA-C [facility] Showing recent visits within past 540 days with a meds authorizing provider and meeting all other requirements Future Appointments Date Type Provider Dept 03/19/25 Appointment Erika Conway PA-C [facility] Showing future appointments within next 150 days with a meds authorizing provider and meeting all other requirements Please review and advise. Sharyn Page MA [facility] 01-05-2025 Surgery Surgical operation note Summary: [...] Botox Injection PROCEDURE: Botox injection CPT code: 06237 PREPROCEDURE DIAGNOSIS: Migraine headache POSTPROCEDURE DIAGNOSIS: same [...] was prepped with alcohol. BOTOX Lot Number: [id number] BOTOX was reconstituted to a concentration of 5 U/0.1mL. The following injections were made using a 30G needle: 5 Botox units to the procerus muscle 5 Botox units to the right hot air furnace installer and repairer supercilii muscle 5 Botox units to the left hot air furnace installer and repairer supercilii muscle 30 Botox units to the [...] the procedure well with no complications noted. [facility] Work Phone: 01-05-2025 Surgical operatio n [...] Botox Injection PROCEDURE: Botox injection CPT code: 34700 PREPROCEDURE DIAGNOSIS: Migraine headache POSTPROCEDURE DIAGNOSIS: same [...] was prepped with alcohol. BOTOX Lot Number: [id number] BOTOX was reconstituted to a concentration of 5 U/0.1mL. The following injections were made using a 30G needle: 5 Botox units to the procerus muscle 5 Botox units to the right hot air furnace installer and repairer supercilii muscle 5 Botox units to the left hot air furnace installer and repairer supercilii muscle 30 Botox units to the [...] no complications noted. documented in this encounter [facility] 01-05-2025 Instructions Erika Conway PA-C - [...] in 3 months Supervising Physician - Dr. Viin Mcdonald MD documented in this encounter [facility] 01-05-2025 Note HNO ID: [id number] Author: ERIKA CONWAY PA-C Service: ? Author Type: Physician Oil Field Pumper Type: Progress Notes Filed: 01/05/2025 15:17 Note [...] Acute gastritis without mention of hemorrhage CHARCOT Otfxsgb-Klxud-ijavj disease, deafness, and intellectual disability syndrome (HCC) Eczema Darin-Danlos syndrome (HCC) Fibromyalgia GERD (gastroesophageal reflux disease) [...] Ear: Hearing n (more content not included)... [facility] 01-05-2025 History of Presen t illness Narrative [...] Acute gastritis without mention of hemorrhage CHARCOT Ywyjoih-Itepm-jbjth disease, deafness, and intellectual disability syndrome (HCC) Eczema Darin-Danlos syndrome (HCC) Fibromyalgia GERD (gastroesophageal reflux disease) [...] content normal. Judgment: Judgment normal. ASSESSMENT/PLAN: 1. 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 [...] Erika Conway PA-C documented in this encounter [facility] 12-31-2024 Surgery Surgical operation note Summary: TPI PATIENT: Capri Aguilar SURGEON: Primary: Vini Mcdonald MD : 1975 DATE OF SURGERY: December 31, 2024 PRE-OP Diagnosis: Myofascial pain syndrome [M79.18] Fibromyalgia [M79.7] POST-OP Diagnosis: Same Procedure: Procedure(s): INJECTION TRIGGER POINT THREE OR MORE MUSCLES (mid/lower back) Anesthesia Type: Local The following procedure was performed in the office today: Trigger Point Injection(s): (73848) -Informed consent was obtained and all patient [...] 0.25% bupivacaine; distributed ~equally at each site. [facility] Work Phone: 12-31-2024 Surgical operatio n note Summary: TPI PATIENT: Capri Aguilar SURGEON: Primary: Vini Mcdonald MD : 1975 DATE OF SURGERY: December 31, 2024 PRE-OP Diagnosis: Myofascial pain syndrome [M79.18] Fibromyalgia [M79.7] POST-OP Diagnosis: Same Procedure: Procedure(s): INJECTION TRIGGER POINT THREE OR MORE MUSCLES (mid/lower back) Anesthesia Type: Local The following procedure was performed in the office today: Trigger Point Injection(s): (95411) -Informed consent was obtained and all patient [...] at each site. documented in this encounter [facility] 12-31-2024 Note HNO ID: [id number] Author: KIMBERLI FREEDMAN RN Service: ? Author Type: Registered Nurse Type: Nursing Progress Note Filed: 12/31/2024 15:10 Note Text: Patient denies blood thinners [facility] 12-31-2024 Nurse Note Patient denies blood thinners [facility] 12-31-2024 Nurse Note Patient denies blood thinners documented in this encounter [facility] 12-30-2024 Telephone encounter Note 1 [facility] 12-30-2024 Miscellaneous Notes 1 documented in this encounter [facility] 12-29-2024 Surgery Surgical operation note Summary: [...] 0.25% bupivacaine; distributed ~equally at each site. [facility] Work Phone: 12-29-2024 Surgical operatio n [...] at each site. documented in this encounter [facility] 12-18-2024 Telephone encounter Note I sent [...] Byrne RN December 18, 2024 3:44 PM [facility] 12-18-2024 Miscellaneous Notes I sent this [...] 2024 12:53 PM documented in this encounter [facility] 12-18-2024 Telephone encounter Note Lebron, Please review the note from Capri and advise as to how to proceed. Ana Harmon December 18, 2024 12:53 PM [facility] 12-18-2024 Telephone encounter Note Items addressed in this encounter: Telephone Encounter LVM to schedule appt 01/05-01/08 with Erika Conway NP Pain at a 245pm slot Able to close encounter. Sharyn Page MA December 18, 2024 11:03 AM 11:03 AM [facility] 12-18-2024 Miscellaneous Notes Items addressed in this encounter: Telephone Encounter LVM to schedule appt 01/05-01/08 with Erika Conway NP Pain at a 245pm slot Able to close encounter. Sharyn Page MA December 18, 2024 11:03 AM 11:03 AM documented in this encounter [facility] 12-18-2024 Telephone encounter Note There is currently no one scheduled at 245 on 01/05, 01/06, or 01/08 [facility] 12-18-2024 Miscellaneous Notes There is currently [...] For clinical consultation, please call . ==== [facility] Urine Drug Screen and Benzo Confirm Urine Panel: No results found for: "UQCANN", "UQBNZL", "TQE7FYC", "UQAMPH", "UQMAMP", "UQBUPRE", "UQNORBUP", "UQMTHD", "UQEDDP", "UQTRAM", "UQDTRM", "UQFNTL", "UQNFTL", "UQCODE", "UQMORP", "UQDCDN", "UQHCOD", "UQOXYC", "UQHMOR", "UQOXYM", "UQCREA", "UQPH", "UQSPGR", "UQOXID", "UQSPQ" Last Opioid agreement effective date: 09/18/2024 Recent Visits Date Type Provider Dept 09/18/24 Office Visit Erika Conway PA-C [facility] 06/23/24 Office Visit Erika Conway PA-C [facility] 03/25/24 Office Visit Erika Conway PA-C [facility] 12/18/23 Office Visit Vini Mcdonald MD [facility] 10/29/23 Office Visit Erika Conway PA-C [facility] 09/19/23 Office Visit Erika Conway PA-C [facility] 08/05/23 Office Visit Erika Conway PA-C [facility] Showing recent visits within past 540 days with a meds authorizing provider and meeting all other requirements Future Appointments Date Type Provider Dept 03/19/25 Appointment Erika Conway PA-C [facility] Showing future appointments within next 150 days with a meds authorizing provider and meeting all other requirements Please review and advise. Sharyn Page MA documented in this encounter [facility] 12-18-2024 Telephone encounter Note There are no 245 slots available. [facility] 12-18-2024 Telephone encounter Note We need to get her an earlier appointment scheduled. Her next FU isn't until March and we are not going to be able to send any further scripts until she is seen. She can be added at 245 pm if needed. [facility] 12-18-2024 Telephone encounter Note The [...] 21, 2024. Authorizing Provider: ERIKA CONWAY PA-C [facility] 12-18-2024 Telephone encounter Note Patient [...] For clinical consultation, please call . ==== [facility] Urine Drug Screen and Benzo Confirm Urine Panel: No results found for: "UQCANN", "UQBNZL", "ZVH3SKU", "UQAMPH", "UQMAMP", "UQBUPRE", "UQNORBUP", "UQMTHD", "UQEDDP", "UQTRAM", "UQDTRM", "UQFNTL", "UQNFTL", "UQCODE", "UQMORP", "UQDCDN", "UQHCOD", "UQOXYC", "UQHMOR", "UQOXYM", "UQCREA", "UQPH", "UQSPGR", "UQOXID", "UQSPQ" Last Opioid agreement effective date: 09/18/2024 Recent Visits Date Type Provider Dept 09/18/24 Office Visit Erika Conway PA-C [facility] 06/23/24 Office Visit Erika Conway PA-C [facility] 03/25/24 Office Visit Erika Conway PA-C [facility] 12/18/23 Office Visit Vini Mcdonald MD [facility] 10/29/23 Office Visit Erika Conway PA-C [facility] 09/19/23 Office Visit Erika Conway PA-C [facility] 08/05/23 Office Visit Erika Conway PA-C [facility] Showing recent visits within past 540 days with a meds authorizing provider and meeting all other requirements Future Appointments Date Type Provider Dept 03/19/25 Appointment Erika Conway PA-C [facility] Showing future appointments within next 150 days with a meds authorizing provider and meeting all other requirements Please review and advise. Sharyn Page MA [facility] 12-09-2024 Telephone encounter Note All three orders are in and should be fine to be scheduled on those dates if the openings are available. [facility] 12-09-2024 Miscellaneous Notes All three orders are in and should be fine to be scheduled on those dates if the openings are available. Capri Diana called and would like to schedule 12/29 TPI's neck, 12/31 TPI's lumbar and Botox 01/05 all at 3:30 PM. Please advise. Ana Harmon December 09, 2024 3:14 PM documented in this encounter [facility] 12-09-2024 Telephone encounter Note Capri Diana called and would like to schedule 12/29 TPI's neck, 12/31 TPI's lumbar and Botox 01/05 all at 3:30 PM. Please advise. Ana Harmon December 09, 2024 3:14 PM [facility] 11-19-2024 Telephone encounter Note The following [...] as tolerated. Authorizing Provider: ERIKA CONWAY PA-C [facility] 11-19-2024 Miscellaneous Notes The following approved [...] For clinical consultation, please call . ==== [facility] Urine Drug Screen and Benzo Confirm Urine Panel: No results found for: "UQCANN", "UQBNZL", "TQK4CYD", "UQAMPH", "UQMAMP", "UQBUPRE", "UQNORBUP", "UQMTHD", "UQEDDP", "UQTRAM", "UQDTRM", "UQFNTL", "UQNFTL", "UQCODE", "UQMORP", "UQDCDN", "UQHCOD", "UQOXYC", "UQHMOR", "UQOXYM", "UQCREA", "UQPH", "UQSPGR", "UQOXID", "UQSPQ" Last Opioid agreement effective date: 09/18/2024 Recent Visits Date Type Provider Dept 09/18/24 Office Visit Erika Conway PA-C [facility] 06/23/24 Office Visit Erika Conway PA-C [facility] 03/25/24 Office Visit Erika Conway PA-C [facility] 12/18/23 Office Visit Vini Mcdonald MD [facility] 10/29/23 Office Visit Erika Conway PA-C [facility] 09/19/23 Office Visit Erika Conway PA-C [facility] 08/05/23 Office Visit Erika Conway PA-C [facility] Showing recent visits within past 540 days with a meds authorizing provider and meeting all other requirements Future Appointments Date Type Provider Dept 03/19/25 Appointment Erika Conway PA-C [facility] Showing future appointments within next 150 days with a meds authorizing provider and meeting all other requirements Please review and advise. Izzy Reddy MA documented in this encounter [facility] 11-19-2024 Telephone encounter Note Patient phones [...] For clinical consultation, please call . ==== [facility] Urine Drug Screen and Benzo Confirm Urine Panel: No results found for: "UQCANN", "UQBNZL", "SFP4BOQ", "UQAMPH", "UQMAMP", "UQBUPRE", "UQNORBUP", "UQMTHD", "UQEDDP", "UQTRAM", "UQDTRM", "UQFNTL", "UQNFTL", "UQCODE", "UQMORP", "UQDCDN", "UQHCOD", "UQOXYC", "UQHMOR", "UQOXYM", "UQCREA", "UQPH", "UQSPGR", "UQOXID", "UQSPQ" Last Opioid agreement effective date: 09/18/2024 Recent Visits Date Type Provider Dept 09/18/24 Office Visit Erika Conway PA-C [facility] 06/23/24 Office Visit Erika Conway PA-C [facility] 03/25/24 Office Visit Erika Conway PA-C [facility] 12/18/23 Office Visit Vini Mcdonald MD [facility] 10/29/23 Office Visit Erika Conway PA-C [facility] 09/19/23 Office Visit Erika Conway PA-C [facility] 08/05/23 Office Visit Erika Conway PA-C [facility] Showing recent visits within past 540 days with a meds authorizing provider and meeting all other requirements Future Appointments Date Type Provider Dept 03/19/25 Appointment Erika Conway PA-C [facility] Showing future appointments within next 150 days with a meds authorizing provider and meeting all other requirements Please review and advise. Izzy Reddy MA [facility] 11-05-2024 Surgery Surgical operation note Summary: TPI PATIENT: Capri Aguilar SURGEON: Primary: Vini Mcdonald MD : 1975 DATE OF SURGERY: November 05, 2024 PRE-OP Diagnosis: Myofascial pain syndrome [M79.18] POST-OP Diagnosis: Same Procedure: Procedure(s): INJECTION TRIGGER POINT THREE OR MORE MUSCLES Anesthesia Type: Local The following procedure was performed in the office today: Trigger Point Injection(s): (39250) -Informed consent was obtained and all patient [...] 0.25% bupivacaine; distributed equally at each site. T [facility] Work Phone: 11-05-2024 Surgical operatio n note Summary: TPI PATIENT: Capri Aguilar SURGEON: Primary: Vini Mcdonald MD : 1975 DATE OF SURGERY: November 05, 2024 PRE-OP Diagnosis: Myofascial pain syndrome [M79.18] POST-OP Diagnosis: Same Procedure: Procedure(s): INJECTION TRIGGER POINT THREE OR MORE MUSCLES Anesthesia Type: Local The following procedure was performed in the office today: Trigger Point Injection(s): (31683) -Informed consent was obtained and all patient [...] at each site. documented in this encounter [facility] 11-05-2024 Note HNO ID: [id number] Author: KIMBERLI FREEDMAN RN Service: ? Author Type: Registered Nurse Type: Nursing Progress Note Filed: 11/05/2024 15:18 Note Text: Patient denies blood thinners [facility] 11-05-2024 Nurse Note Patient denies blood thinners [facility] 11-05-2024 Nurse Note Patient denies blood thinners documented in this encounter [facility] 11-03-2024 Surgery Surgical operation note Summary: [...] 0.25% bupivacaine; distributed equally at each site. [facility] Work Phone: 11-03-2024 Surgical operatio n note Summary: TPI PATIENT: Capri Aguilar SURGEON: Primary: Vini Mcdonald MD : 1975 DATE OF SURGERY: November 03, 2024 PRE-OP Diagnosis: Myofascial pain syndrome [M79.18] Fibromyalgia [M79.7] POST-OP Diagnosis: Same Procedure: Procedure(s): INJECTION TRIGGER POINT THREE OR MORE MUSCLES Anesthesia Type: Local The following procedure was performed in the office today: Trigger Point Injection(s): (27774) -Informed consent was obtained and all patient [...] at each site. documented in this encounter [facility] 10-06-2024 Surgery Surgical operation note Summary: [...] Botox Injection PROCEDURE: Botox injection CPT code: 85065 PREPROCEDURE DIAGNOSIS: Migraine headache POSTPROCEDURE DIAGNOSIS: same [...] was prepped with alcohol. BOTOX Lot Number: [id number] BOTOX was reconstituted to a concentration of 5 U/0.1mL. The following injections were made using a 30G needle: 5 Botox units to the procerus muscle 5 Botox units to the right hot air furnace installer and repairer supercilii muscle 5 Botox units to the left hot air furnace installer and repairer supercilii muscle 30 Botox units to the [...] the procedure well with no complications noted. [facility] Work Phone: 10-06-2024 Miscellaneous Notes [...] Botox Injection PROCEDURE: Botox injection CPT code: 94763 PREPROCEDURE DIAGNOSIS: Migraine headache POSTPROCEDURE DIAGNOSIS: same [...] was prepped with alcohol. BOTOX Lot Number: [id number] BOTOX was reconstituted to a concentration of 5 U/0.1mL. The following injections were made using a 30G needle: 5 Botox units to the procerus muscle 5 Botox units to the right hot air furnace installer and repairer supercilii muscle 5 Botox units to the left hot air furnace installer and repairer supercilii muscle 30 Botox units to the [...] no complications noted. documented in this encounter [facility] 09-23-2024 Progress note Formatting of t his note might be different from the original. The patient's most recent drug screen has been reviewed and is appropriate and consistent with current therapy. Erika Conway PA-C September 23, 2024 9:38 AM [facility] 09-23-2024 Miscellaneous Notes The patient's most recent drug screen has been reviewed and is appropriate and consistent with current therapy. Erika Conway PA-C September 23, 2024 9:38 AM documented in this encounter [facility] 09-18-2024 Instructions Erika Conway PA-C - [...] Vini Mcdonald MD documented in this encounter [facility] 09-18-2024 Note HNO ID: [id number] Author: ERIKA CONWAY PA-C Service: ? Author Type: Physician Oil Field Pumper Type: Progress Notes Filed: 09/18/2024 14:14 Note Text: This note was created using [employer]. Subjective Capri Aguilar is a 48 year [...] Acute gastritis without mention of hemorrhage CHARCOT Amwwwvf-Zepho-qowey disease, deafness, and intellectual disability syndrome (HCC) Eczema Darin-Danlos syndrome (HCC) Fibromyalgia GERD (gastroesophageal reflux disease) [...] LMP (LMP Unkn (more content not included)... [facility] 09-18-2024 History of Presen t illness Narrative [...] Acute gastritis without mention of hemorrhage CHARCOT Hpdystp-Pdcay-sgxpc disease, deafness, and intellectual disability syndrome (HCC) Eczema Darin-Danlos syndrome (HCC) Fibromyalgia GERD (gastroesophageal reflux disease) [...] 14 TONSILLECTOMY PRIMARY/SECONDARY <AGE 14 1983 Tonsillectomy Social History Tobacco Use Smoking status: [...] Judgment normal. Assessment and Plan ASSESSMENT/PLAN: 1. 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 Vlqywhs-Hchzn-Oyxxo disease - ICD9: 356.1, ICD10: G60.0 - [...] M79.18 - TOXASSURE FLEX 23, URINE 7. retirement (current) use of opiate analgesic - ICD9: [...] Last uds-09/18/24 09/10/24-TPI documented in this encounter [facility] 09-18-2024 Note HNO ID: [id number] Author: ANTONELLA VALLADARES RN Service: ? Author Type: Registered Nurse Type: Progress Notes Filed: 09/18/2024 14:14 Note Text: Oxycodone am Med helps pain Denies side effects Last uds-09/18/24 09/10/24-TPI [facility] 09-11-2024 Telephone encounter Note The following approved [...] as tolerated. Authorizing Provider: ERIKA CONWAY PA-C [facility] 09-11-2024 Miscellaneous Notes The following approved [...] call . ==== No results found for: "UQNOTE", "OPIATEPNMGT", "DRUGSCRPAIN" Urine Panel: No results found for: "UQCANN", "UQBNZL", "ZDB3DVY", "UQAMPH", "UQMAMP", "UQBUPRE", "UQNORBUP", "UQMTHD", "UQEDDP", "UQTRAM", "UQDTRM", "UQFNTL", "UQNFTL", "UQCODE", "UQMORP", "UQDCDN", "UQHCOD", "UQOXYC", "UQHMOR", "UQOXYM", "UQCREA", "UQPH", "UQSPGR", "UQOXID", "UQSPQ" Lab Results Component Value Date SUMM FINAL [...] Alisa Lion RN documented in this encounter [facility] 09-11-2024 Telephone encounter Note Patient phones [...] call . ==== No results found for: "UQNOTE", "OPIATEPNMGT", "DRUGSCRPAIN" Urine Panel: No results found for: "UQCANN", "UQBNZL", "YVL2VTT", "UQAMPH", "UQMAMP", "UQBUPRE", "UQNORBUP", "UQMTHD", "UQEDDP", "UQTRAM", "UQDTRM", "UQFNTL", "UQNFTL", "UQCODE", "UQMORP", "UQDCDN", "UQHCOD", "UQOXYC", "UQHMOR", "UQOXYM", "UQCREA", "UQPH", "UQSPGR", "UQOXID", "UQSPQ" Lab Results Component Value Date SUMM FINAL [...] Please review and advise. Alisa Lion RN [facility] 09-10-2024 Surgery Surgical operation note Summary: TPI PATIENT: Capri Aguilar SURGEON: Primary: Vini Mcdonald MD : 1975 DATE OF SURGERY: September 10, 2024 PRE-OP Diagnosis: Myofascial pain syndrome [M79.18] POST-OP Diagnosis: Same Procedure: Procedure(s): INJECTION TRIGGER POINT THREE OR MORE MUSCLES (lower back) Anesthesia Type: Local The following procedure was performed in the office today: Trigger Point Injection(s): (41027) -Informed consent was obtained and all patient [...] 0.25% bupivacaine; distributed equally at each site. [facility] Work Phone: 09-10-2024 Surgical operatio n note Summary: TPI PATIENT: Capri Aguilar SURGEON: Primary: Vini Mcdonald MD : 1975 DATE OF SURGERY: September 10, 2024 PRE-OP Diagnosis: Myofascial pain syndrome [M79.18] POST-OP Diagnosis: Same Procedure: Procedure(s): INJECTION TRIGGER POINT THREE OR MORE MUSCLES (lower back) Anesthesia Type: Local The following procedure was performed in the office today: Trigger Point Injection(s): (49049) -Informed consent was obtained and all patient [...] at each site. documented in this encounter [facility] 09-10-2024 Note HNO ID: [id number] Author: KIMBERLI FREEDMAN RN Service: ? Author Type: Registered Nurse Type: Nursing Progress Note Filed: 09/10/2024 15:07 Note Text: Patient denies any blood thinners [facility] 09-10-2024 Nurse Note Patient denies any blood thinners [facility] 09-10-2024 Nurse Note Patient denies any blood thinners documented in this encounter [facility] 09-08-2024 Surgery Surgical operation note Summary: [...] 0.25% bupivacaine; distributed equally at each site. [facility] Work Phone: 09-08-2024 Surgical operatio n [...] at each site. documented in this encounter [facility] 08-14-2024 Telephone encounter Note The orders are in for both sets of trigger points, she just needs scheduled please. [facility] 08-14-2024 Miscellaneous Notes The orders are in for both sets of trigger points, she just needs scheduled please. Dr Mcdonald, This message was received today. Please advise. Thank you, Ana King August 14, 2024 1:21 PM Ana: Please contact pt as to below requested procedure scheduling request. Thank you, Suzette Alcala RN August 14, 2024 1:18 PM documented in this encounter [facility] 08-14-[address] Mcdonald, This message was received today. Please advise. Thank you, Ana King August 14, 2024 1:21 PM [facility] 08-14-2024 Telephone encounter Note Ana: Please contact pt as to below requested procedure scheduling request. Thank you, Suzette Alcala RN August 14, 2024 1:18 PM [facility] 08-13-2024 Telephone encounter Note The following [...] as tolerated. Authorizing Provider: ERIKA CONWAY PA-C [facility] 08-13-2024 Miscellaneous Notes The following approved [...] call . ==== No results found for: "UQNOTE", "OPIATEPNMGT", "DRUGSCRPAIN" Urine Panel: No results found for: "UQCANN", "UQBNZL", "PFF8UQP", "UQAMPH", "UQMAMP", "UQBUPRE", "UQNORBUP", "UQMTHD", "UQEDDP", "UQTRAM", "UQDTRM", "UQFNTL", "UQNFTL", "UQCODE", "UQMORP", "UQDCDN", "UQHCOD", "UQOXYC", "UQHMOR", "UQOXYM", "UQCREA", "UQPH", "UQSPGR", "UQOXID", "UQSPQ" Lab Results Component Value Date SUMM FINAL [...] Allie Bass RN documented in this encounter [facility] 08-13-2024 Telephone encounter Note Patient phones [...] call . ==== No results found for: "UQNOTE", "OPIATEPNMGT", "DRUGSCRPAIN" Urine Panel: No results found for: "UQCANN", "UQBNZL", "TYE6KKL", "UQAMPH", "UQMAMP", "UQBUPRE", "UQNORBUP", "UQMTHD", "UQEDDP", "UQTRAM", "UQDTRM", "UQFNTL", "UQNFTL", "UQCODE", "UQMORP", "UQDCDN", "UQHCOD", "UQOXYC", "UQHMOR", "UQOXYM", "UQCREA", "UQPH", "UQSPGR", "UQOXID", "UQSPQ" Lab Results Component Value Date SUMM FINAL [...] Please review and advise. Allie Bass RN [facility] 07-16-2024 Surgery Surgical operation note Summary: [...] 0.25% bupivacaine; distributed equally at each site. [facility] Work Phone: 07-16-2024 Surgical operatio n note [...] at each site. documented in this encounter [facility] 07-16-2024 Note HNO ID: [id number] Author: KIMBERLI FREEDMAN RN Service: ? Author Type: Registered Nurse Type: Nursing Progress Note Filed: 07/16/2024 14:57 Note Text: Patient denies blood thinners [facility] 07-16-2024 Nurse Note Patient denies blood thinners [facility] 07-16-2024 Nurse Note Patient denies blood thinners documented in this encounter [facility] 07-14-2024 Surgery Surgical operation note Summary: TPI PATIENT: Capri Aguilar SURGEON: Primary: Vini Mcdonald MD : 1975 DATE OF SURGERY: July 14, 2024 PRE-OP Diagnosis: Myofascial pain syndrome [M79.18] POST-OP Diagnosis: Same Procedure: Procedure(s): INJECTION TRIGGER POINT THREE OR MORE MUSCLES (upper back) Anesthesia Type: Local The following procedure was performed in the office today: Trigger Point Injection(s): (88982) -Informed consent was obtained and all patient [...] 0.25% bupivacaine; distributed equally at each site. [facility] Work Phone: 07-14-2024 Surgical operatio n note Summary: TPI PATIENT: Capri R Lauren SURGEON: Primary: Vini Mcdonald MD : 1975 DATE OF SURGERY: July 14, 2024 PRE-OP Diagnosis: Myofascial pain syndrome [M79.18] POST-OP Diagnosis: Same Procedure: Procedure(s): INJECTION TRIGGER POINT THREE OR MORE MUSCLES (upper back) Anesthesia Type: Local The following procedure was performed in the office today: Trigger Point Injection(s): (40280) -Informed consent was obtained and all patient [...] at each site. documented in this encounter [facility] 07-07-2024 Surgery Surgical operation note Summary: Botox Injections PATIENT: Capri Cris Lauren SURGEON: Primary: Vini Mcdonald MD : 1975 DATE OF SURGERY: July 07, 2024 PRE-OP Diagnosis: Migraine, unspecified, without mention of intractable migraine without mention of status migrainosus [G43.909] POST-OP Diagnosis: Same Procedure: Procedure(s): CHEMODENERVATION OF MUSCLE (S), MUSCLE (S) INNERVATED BY FACIAL NERVE Anesthesia Type: Local The following procedure was performed in the office today: Botox Injection PROCEDURE: Botox injection CPT code: 62791 PREPROCEDURE DIAGNOSIS: Migraine headache POSTPROCEDURE DIAGNOSIS: same ANESTHESIA: none PROCEDURE REPORT: The risks and benefits of the procedure were explained to the patient and all questions were answered. The patient gave consent to proceed with the procedure. The skin was prepped with alcohol. BOTOX Lot Number: [id number] BOTOX was reconstituted to a concentration of 5 U/0.1mL. The following injections were made using a 30G needle: 5 Botox units to the procerus muscle 5 Botox units to the right hot air furnace installer and repairer supercilii muscle 5 Botox units to the left hot air furnace installer and repairer supercilii muscle 20 Botox units to the [...] the procedure well with no complications noted. [facility] Work Phone: 07-07-2024 Surgical operatio n note [...] Botox Injection PROCEDURE: Botox injection CPT code: 22654 PREPROCEDURE DIAGNOSIS: Migraine headache POSTPROCEDURE DIAGNOSIS: same ANESTHESIA: none PROCEDURE REPORT: The risks and benefits of the procedure were explained to the patient and all questions were answered. The patient gave consent to proceed with the procedure. The skin was prepped with alcohol. BOTOX Lot Number: [id number] BOTOX was reconstituted to a concentration of 5 U/0.1mL. The following injections were made using a 30G needle: 5 Botox units to the procerus muscle 5 Botox units to the right hot air furnace installer and repairer supercilii muscle 5 Botox units to the left hot air furnace installer and repairer supercilii muscle 20 Botox units to the [...] no complications noted. documented in this encounter [facility] 06-23-2024 Instructions Erika Conway PA-C - [...] Vini Mcdonald MD documented in this encounter [facility] 06-23-2024 Note HNO ID: [id number] Author: CONWAY, ERIKA, PA-C Service: ? Author Type: Physician Oil Field Pumper Type: Progress Notes Filed: 06/23/2024 13:47 Note Text: This note was created using NoteWriter. Subjective [...] Acute gastritis without mention of hemorrhage CHARCOT Jpmihfb-Dptbm-hyiyu disease, deafness, and intellectual disability syndrome Eczema Darin-Danlos syndrome Fibromyalgia GERD (gastroesophageal reflux disease) Loss [...] Judgment normal. Assessment and Plan ASSESSMENT/PLAN: 1. Ckrchgx-Fziou-Ennrq disease - ICD9: 356.1, ICD10: G60.0 (primary diagnosis) - OXYCODONE 20 MG/ML ORAL CONCENTRATE 2. 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 [facility] 06-23-2024 History of Presen t illness Narrative This note was created using [employer]. Subjective Capri Aguilar is a 48 year [...] Acute gastritis without mention of hemorrhage CHARCOT Wzgtueo-Lvqhu-luuuk disease, deafness, and intellectual disability syndrome Eczema Darin-Danlos syndrome Fibromyalgia GERD (gastroesophageal reflux disease) Loss [...] Judgment normal. Assessment and Plan ASSESSMENT/PLAN: 1. 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 [...] Erika Conway PA-C documented in this encounter [facility] 06-16-2024 Telephone encounter Note The following [...] 18, 2024. Authorizing Provider: ERIKA CONWAY PA-C [facility] 06-16-2024 Miscellaneous Notes The following approved [...] call . ==== No results found for: "UQNOTE", "OPIATEPNMGT", "DRUGSCRPAIN" Urine Panel: No results found for: "UQCANN", "UQBNZL", "BMN1XGO", "UQAMPH", "UQMAMP", "UQBUPRE", "UQNORBUP", "UQMTHD", "UQEDDP", "UQTRAM", "UQDTRM", "UQFNTL", "UQNFTL", "UQCODE", "UQMORP", "UQDCDN", "UQHCOD", "UQOXYC", "UQHMOR", "UQOXYM", "UQCREA", "UQPH", "UQSPGR", "UQOXID", "UQSPQ" @FLOW([id number])@ Lab Results Component Value Date SUMM FINAL [...] Zonia Desai RN documented in this encounter [facility] 06-16-2024 Telephone encounter Note Patient phones [...] call . ==== No results found for: "UQNOTE", "OPIATEPNMGT", "DRUGSCRPAIN" Urine Panel: No results found for: "UQCANN", "UQBNZL", "UOG4JFK", "UQAMPH", "UQMAMP", "UQBUPRE", "UQNORBUP", "UQMTHD", "UQEDDP", "UQTRAM", "UQDTRM", "UQFNTL", "UQNFTL", "UQCODE", "UQMORP", "UQDCDN", "UQHCOD", "UQOXYC", "UQHMOR", "UQOXYM", "UQCREA", "UQPH", "UQSPGR", "UQOXID", "UQSPQ" @FLOW([id number])@ Lab Results Component Value Date SUMM FINAL [...] Please review and advise. Zonia Desai RN [facility] 05-19-2024 Note HNO ID: [id number] Author: VINI MCDONALD MD Service: ? Author [...] been a mainstay of this patient's care. [facility] 05-19-2024 History of Presen t illness Narrative [...] this patient's care. documented in this encounter [facility] 05-19-2024 Surgery Surgical operation note Summary: [...] 0.25% bupivacaine; distributed equally at each site. [facility] Work Phone: 05-19-2024 Surgical operatio n [...] at each site. documented in this encounter [facility] 05-18-2024 Telephone encounter Note The following [...] 19, 2024. Authorizing Provider: ERIKA CONWAY PA-C [facility] 05-18-2024 Miscellaneous Notes The following approved [...] call . ==== No results found for: "UQNOTE", "OPIATEPNMGT", "DRUGSCRPAIN" Urine Panel: No results found for: "UQCANN", "UQBNZL", "RJC6ZFZ", "UQAMPH", "UQMAMP", "UQBUPRE", "UQNORBUP", "UQMTHD", "UQEDDP", "UQTRAM", "UQDTRM", "UQFNTL", "UQNFTL", "UQCODE", "UQMORP", "UQDCDN", "UQHCOD", "UQOXYC", "UQHMOR", "UQOXYM", "UQCREA", "UQPH", "UQSPGR", "UQOXID", "UQSPQ" @FLOW([id number])@ Lab Results Component Value Date SUMM FINAL [...] Allie Bass RN documented in this encounter [facility] 05-18-2024 Telephone encounter Note Patient phones [...] call . ==== No results found for: "UQNOTE", "OPIATEPNMGT", "DRUGSCRPAIN" Urine Panel: No results found for: "UQCANN", "UQBNZL", "NRS4TEG", "UQAMPH", "UQMAMP", "UQBUPRE", "UQNORBUP", "UQMTHD", "UQEDDP", "UQTRAM", "UQDTRM", "UQFNTL", "UQNFTL", "UQCODE", "UQMORP", "UQDCDN", "UQHCOD", "UQOXYC", "UQHMOR", "UQOXYM", "UQCREA", "UQPH", "UQSPGR", "UQOXID", "UQSPQ" @[facility]([id number])@ Lab Results Component Value Date SUMM FINAL [...] Please review and advise. Allie Bass RN [facility] 05-12-2024 Surgery Surgical operation note Summary: TPI PATIENT: Capri Aguilar SURGEON: Primary: Vini Mcdonald MD : 1975 DATE OF SURGERY: May 12, 2024 PRE-OP Diagnosis: Myofascial pain syndrome [M79.18] POST-OP Diagnosis: Same Procedure: Procedure(s): INJECTION TRIGGER POINT THREE OR MORE MUSCLES (upper back and neck) Anesthesia Type: Local The following procedure was performed in the office today: Trigger Point Injection(s): (25405) -Informed consent was obtained and all patient [...] 0.25% bupivacaine; distributed equally at each site. [facility] Work Phone: 05-12-2024 Surgical operatio n note Summary: TPI PATIENT: Capri Aguilar SURGEON: Primary: Vini Mcdonald MD : 1975 DATE OF SURGERY: May 12, 2024 PRE-OP Diagnosis: Myofascial pain syndrome [M79.18] POST-OP Diagnosis: Same Procedure: Procedure(s): INJECTION TRIGGER POINT THREE OR MORE MUSCLES (upper back and neck) Anesthesia Type: Local The following procedure was performed in the office today: Trigger Point Injection(s): (64628) -Informed consent was obtained and all patient [...] at each site. documented in this encounter [facility] 04-17-2024 Telephone encounter Note The following [...] 24, 2024. Authorizing Provider: ERIKA CONWAY PA-C [facility] 04-17-2024 Miscellaneous Notes The following approved [...] 24, 2024. Authorizing Provider: ERIKA CONWAY PA-C Patient [...] call . ==== No results found for: "UQNOTE", "OPIATEPNMGT", "DRUGSCRPAIN" Urine Panel: No results found for: "UQCANN", "UQBNZL", "QKN8YJI", "UQAMPH", "UQMAMP", "UQBUPRE", "UQNORBUP", "UQMTHD", "UQEDDP", "UQTRAM", "UQDTRM", "UQFNTL", "UQNFTL", "UQCODE", "UQMORP", "UQDCDN", "UQHCOD", "UQOXYC", "UQHMOR", "UQOXYM", "UQCREA", "UQPH", "UQSPGR", "UQOXID", "UQSPQ" @FLOW([id number])@ Lab Results Component Value Date SUMM FINAL [...] Zonia Desai RN documented in this encounter [facility] 04-17-2024 Telephone encounter Note Patient phones [...] call . ==== No results found for: "UQNOTE", "OPIATEPNMGT", "DRUGSCRPAIN" Urine Panel: No results found for: "UQCANN", "UQBNZL", "TMU6FYN", "UQAMPH", "UQMAMP", "UQBUPRE", "UQNORBUP", "UQMTHD", "UQEDDP", "UQTRAM", "UQDTRM", "UQFNTL", "UQNFTL", "UQCODE", "UQMORP", "UQDCDN", "UQHCOD", "UQOXYC", "UQHMOR", "UQOXYM", "UQCREA", "UQPH", "UQSPGR", "UQOXID", "UQSPQ" @FLOW([id number])@ Lab Results Component Value Date SUMM FINAL [...] Please review and advise. Zonia Desai RN [facility] 04-02-2024 Surgery Surgical operation note Summary: Botox [...] Botox Injection PROCEDURE: Botox injection CPT code: 95086 PREPROCEDURE DIAGNOSIS: Migraine headache POSTPROCEDURE DIAGNOSIS: same ANESTHESIA: none PROCEDURE REPORT: The risks and benefits of the procedure were explained to the patient and all questions were answered. The patient gave consent to proceed with the procedure. The skin was prepped with alcohol. BOTOX Lot Number: [id number] BOTOX was reconstituted to a concentration of 5 U/0.1mL. The following injections were made using a 30G needle: 5 Botox units to the procerus muscle 5 Botox units to the right hot air furnace installer and repairer supercilii muscle 5 Botox units to the left hot air furnace installer and repairer supercilii muscle 20 Botox units to the [...] the procedure well with no complications noted. [facility] Work Phone: 04-02-2024 Surgical operatio n [...] Botox Injection PROCEDURE: Botox injection CPT code: 89582 PREPROCEDURE DIAGNOSIS: Migraine headache POSTPROCEDURE DIAGNOSIS: same ANESTHESIA: none PROCEDURE REPORT: The risks and benefits of the procedure were explained to the patient and all questions were answered. The patient gave consent to proceed with the procedure. The skin was prepped with alcohol. BOTOX Lot Number: [id number], [id number] BOTOX was reconstituted to a concentration of 5 U/0.1mL. The following injections were made using a 30G needle: 5 Botox units to the procerus muscle 5 Botox units to the right hot air furnace installer and repairer supercilii muscle 5 Botox units to the left hot air furnace installer and repairer supercilii muscle 20 Botox units to the [...] no complications noted. documented in this encounter [facility] 03-25-2024 Instructions Erika Conway PA-C - [...] Vini Mcdonald MD documented in this encounter [facility] 03-25-2024 History of Presen t illness Narrative This note was created using [employer]. Subjective Capri Aguilar is a 48 year [...] Acute gastritis without mention of hemorrhage CHARCOT Cdhamlu-Eqqyi-utlvw disease, deafness, and intellectual disability syndrome Eczema Darin-Danlos syndrome Fibromyalgia GERD (gastroesophageal reflux disease) Loss [...] 14 TONSILLECTOMY PRIMARY/SECONDARY <AGE 14 1983 Tonsillectomy Social History Tobacco Use Smoking status: [...] diagnosis) - TOXASSURE FLEX 23, URINE 2. 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 Dgimmca-Wcodw-Lvwkz disease - ICD9: 356.1, ICD10: G60.0 - OXYCODONE 20 MG/ML ORAL CONCENTRATE 4. intermediate frame tender (current) use of opiate analgesic - ICD9: [...] Erika Conway PA-C documented in this encounter [facility] 03-25-2024 Nurse Note Oxycodone 1pm Med helps pain Denies side effects Last uds-03/25/24 03/13/24-TPI [facility] 03-25-2024 Nurse Note Oxycodone 1pm Med helps pain Denies side effects Last uds-03/25/24 03/13/24-TPI documented in this encounter [facility] 03-16-2024 Telephone encounter Note Order created for TPI visits x2 [facility] 03-16-2024 Miscellaneous Notes Order created for TPI visits x2 Dr Mcdonald, I spoke to Capri and [...] 19 at 3:30 documented in this encounter [facility] 03-13-[address] Mcdonald, Link spoke to Capri and scheduled her Botox. [...] x 1 visit) May 19 at 3:30 [facility] 03-12-2024 Surgery Surgical operation note Summary: [...] 0.25% bupivacaine; distributed equally at each site. [facility] Work Phone: 03-12-2024 Surgical operatio n note Summary: TPI low back PATIENT: Capri Lynch Lauren SURGEON: Primary: Vini [...] at each site. documented in this encounter [facility] 03-10-2024 Surgery Surgical operation note Summary: [...] 0.25% bupivacaine; distributed equally at each site. [facility] Work Phone: 03-10-2024 Surgical operatio n [...] at each site. documented in this encounter [facility] 02-24-2024 Telephone encounter Note I spoke [...] is unacceptable and that no one in [facility] must have migraines. I apologized again. Ana King February 24, 2024 10:56 AM [facility] 02-24-2024 Miscellaneous Notes I spoke to [...] is unacceptable and that no one in [facility] must have migraines. I apologized again. Ana King February 24, 2024 10:56 AM documented in this encounter [facility] 02-21-2024 Miscellaneous Notes The following approved [...] call . ==== No results found for: "UQNOTE", "OPIATEPNMGT", "DRUGSCRPAIN" Urine Panel: No results found for: "UQCANN", "UQBNZL", "PNE7QFG", "UQAMPH", "UQMAMP", "UQBUPRE", "UQNORBUP", "UQMTHD", "UQEDDP", "UQTRAM", "UQDTRM", "UQFNTL", "UQNFTL", "UQCODE", "UQMORP", "UQDCDN", "UQHCOD", "UQOXYC", "UQHMOR", "UQOXYM", "UQCREA", "UQPH", "UQSPGR", "UQOXID", "UQSPQ" @FLOW([id number])@ Lab Results Component Value Date SUMM FINAL [...] Zonia Desai RN documented in this encounter [facility] 02-21-2024 Telephone encounter Note The following [...] 25 days Authorizing Provider: ERIKA CONWAY PA-C [facility] 02-21-2024 Telephone encounter Note Patient phones [...] call . ==== No results found for: "UQNOTE", "OPIATEPNMGT", "DRUGSCRPAIN" Urine Panel: No results found for: "UQCANN", "UQBNZL", "INE8FZR", "UQAMPH", "UQMAMP", "UQBUPRE", "UQNORBUP", "UQMTHD", "UQEDDP", "UQTRAM", "UQDTRM", "UQFNTL", "UQNFTL", "UQCODE", "UQMORP", "UQDCDN", "UQHCOD", "UQOXYC", "UQHMOR", "UQOXYM", "UQCREA", "UQPH", "UQSPGR", "UQOXID", "UQSPQ" @FLOW([id number])@ Lab Results Component Value Date SUMM FINAL [...] Please review and advise. Zonia Desai RN [facility] 02-11-2024 Telephone encounter Note LM on VM for pt to reschedule botox injections on 02/24- we have 1,130,2 or 230 available. Zonia Desai RN February 11, 2024 3:20 PM [facility] 02-11-2024 Miscellaneous Notes LM on VM for pt to reschedule botox injections on 02/24- we have 1,130,2 or 230 available. Zonia Desai RN February 11, 2024 3:20 PM documented in this encounter [facility] 08-09-2024 Telephone encounter Note Patient phones requesting refills [...] call . ==== No results found for: "UQNOTE", "OPIATEPNMGT", "DRUGSCRPAIN" Urine Panel: No results found for: "UQCANN", "UQBNZL", "YQJ5NVF", "UQAMPH", "UQMAMP", "UQBUPRE", "UQNORBUP", "UQMTHD", "UQEDDP", "UQTRAM", "UQDTRM", "UQFNTL", "UQNFTL", "UQCODE", "UQMORP", "UQDCDN", "UQHCOD", "UQOXYC", "UQHMOR", "UQOXYM", "UQCREA", "UQPH", "UQSPGR", "UQOXID", "UQSPQ" @[id number])@ Lab Results Component Value Date SUMM FINAL [...] Please review and advise. Suzette Alcala RN [facility] 01-17-2024 Miscellaneous Notes Patient phones requesting [...] call . ==== No results found for: "UQNOTE", "OPIATEPNMGT", "DRUGSCRPAIN" Urine Panel: No results found for: "UQCANN", "UQBNZL", "EHM7JXA", "UQAMPH", "UQMAMP", "UQBUPRE", "UQNORBUP", "UQMTHD", "UQEDDP", "UQTRAM", "UQDTRM", "UQFNTL", "UQNFTL", "UQCODE", "UQMORP", "UQDCDN", "UQHCOD", "UQOXYC", "UQHMOR", "UQOXYM", "UQCREA", "UQPH", "UQSPGR", "UQOXID", "UQSPQ" @FLOW([id number])@ Lab Results Component Value Date SUMM FINAL [...] Suzette Alcala RN documented in this encounter [facility] 01-14-2024 Surgery Surgical operation note PATIENT: Capri Aguilar SURGEON: Primary: Vini Mcdonald MD : 1975 DATE OF SURGERY: January 14, 2024 PRE-OP Diagnosis: Fibromyalgia [M79.7] POST-OP Diagnosis: Same Procedure: Procedure(s): bilateral sternocleidomastoid, splenius capitis, trapezius, and levator scapulae muscles INJECTION TRIGGER POINT THREE OR MORE MUSCLES Anesthesia Type: Local The following procedure was performed in the office today: Trigger Point Injection(s): (00104) -Informed consent was obtained and all patient [...] 0.25% bupivacaine; distributed equally at each site. [facility] Work Phone: 01-14-2024 Surgical operatio n [...] at each site. documented in this encounter [facility] 01-09-2024 Surgery Surgical operation note PATIENT: [...] 0.25% bupivacaine; distributed equally at each site. [facility] Work Phone: 01-09-2024 Surgical operatio n note PATIENT: Capri R Luaren SURGEON: Primary: Vini Mcdonald MD : 1975 DATE OF SURGERY: January 09, 2024 PRE-OP Diagnosis: Fibromyalgia [M79.7] POST-OP Diagnosis: Same Procedure: Procedure(s): bilateral quadratus lumborum, latissimus dorsi, erector spinae, and rhomboid muscles INJECTION TRIGGER POINT THREE OR MORE MUSCLES Anesthesia Type: Local The following procedure was performed in the office today: Trigger Point Injection(s): (12496) -Informed consent was obtained and all patient [...] at each site. 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 Continue liquid oxycodone for chronic abdominal pain, whole body pain 2. Continue with trigger point injections 3. Will schedule Botox for February 4. Continue activity as tolerated 5. Follow-up 3 [...] 12/18/2023 3:04 PM documented in this encounter [facility] 12-18-2023 Instructions Vini Mcdonald MD - 12/18/2023 3:04 PM EDT 1. Continue liquid oxycodone for chronic abdominal pain, whole body pain 2. Continue with trigger point injections 3. Will schedule Botox for February 4. Continue activity as tolerated 5. Follow-up 3 months 6. Continue care with all other providers documented in this encounter [facility] 12-18-2023 Nurse Note Oxycodone Med helps pain Denies side effects Last uds-08/05/23 11/14/23-Botox [facility] 12-18-2023 Nurse Note Oxycodone Med helps pain Denies side effects Last uds-08/05/23 11/14/23-Botox documented in this encounter [facility] 11-25-2023 Telephone encounter Note The following [...] 25 days Authorizing Provider: ERIKA CONWAY PA-C [facility] 11-25-2023 Miscellaneous Notes The following approved [...] call . ==== No results found for: "UQNOTE", "OPIATEPNMGT", "DRUGSCRPAIN" Urine Panel: No results found for: "UQCANN", "UQBNZL", "CQM4VPS", "UQAMPH", "UQMAMP", "UQBUPRE", "UQNORBUP", "UQMTHD", "UQEDDP", "UQTRAM", "UQDTRM", "UQFNTL", "UQNFTL", "UQCODE", "UQMORP", "UQDCDN", "UQHCOD", "UQOXYC", "UQHMOR", "UQOXYM", "UQCREA", "UQPH", "UQSPGR", "UQOXID", "UQSPQ" @FLOW([id number])@ Lab Results Component Value Date SUMM FINAL [...] Allie Bass RN documented in this encounter [facility] 11-25-2023 Telephone encounter Note Patient phones [...] call . ==== No results found for: "UQNOTE", "OPIATEPNMGT", "DRUGSCRPAIN" Urine Panel: No results found for: "UQCANN", "UQBNZL", "SHZ8WYO", "UQAMPH", "UQMAMP", "UQBUPRE", "UQNORBUP", "UQMTHD", "UQEDDP", "UQTRAM", "UQDTRM", "UQFNTL", "UQNFTL", "UQCODE", "UQMORP", "UQDCDN", "UQHCOD", "UQOXYC", "UQHMOR", "UQOXYM", "UQCREA", "UQPH", "UQSPGR", "UQOXID", "UQSPQ" @FLOW([id number])@ Lab Results Component Value Date SUMM FINAL [...] Please review and advise. Allie Bass RN [facility] 11-14-2023 Hospital [facility] Dejon Macedo MD - 11/14/2023 1:23 PM EDT Post-procedure [...] normally would, but you do need a team truck driver. Additional Instructions: documented in this encounter [facility] 11-14-2023 Surgery Surgical operation note Summary: Botox injection Botox Injection PROCEDURE: Botox injection CPT code: 71783 PREPROCEDURE DIAGNOSIS: Migraine headache POSTPROCEDURE DIAGNOSIS: same ANESTHESIA: none PROCEDURE REPORT: The risks and benefits of the procedure were explained to the patient and all questions were answered. The patient gave consent to proceed with the procedure. The skin was prepped with alcohol. BOTOX Lot Number: [id number] BOTOX was reconstituted to a concentration of 2.5 U/0.1mL. The following injections were made using a 30G needle: 15 Botox units to the procerus muscle 15 Botox units to the right hot air furnace installer and repairer supercilii muscle 15 Botox units to the left hot air furnace installer and repairer supercilii muscle 30 Botox units to the [...] DATE: November 14, 2023 TIME: 1:22 PM [facility] 11-14-2023 Surgical operatio n note Summary: Botox injection Botox Injection PROCEDURE: Botox injection CPT code: 41536 PREPROCEDURE DIAGNOSIS: Migraine headache POSTPROCEDURE DIAGNOSIS: same ANESTHESIA: none PROCEDURE REPORT: The risks and benefits of the procedure were explained to the patient and all questions were answered. The patient gave consent to proceed with the procedure. The skin was prepped with alcohol. BOTOX Lot Number: [id number] BOTOX was reconstituted to a concentration of 2.5 U/0.1mL. The following injections were made using a 30G needle: 15 Botox units to the procerus muscle 15 Botox units to the right hot air furnace installer and repairer supercilii muscle 15 Botox units to the left hot air furnace installer and repairer supercilii muscle 30 Botox units to the [...] TIME: 1:22 PM documented in this encounter [facility] 11-14-2023 Telephone encounter Note Blayne reached [facility] Rep, authorization has date span and updated notes. Pt called @ 11am to keep appt today. [facility] 11-14-2023 Miscellaneous Notes Blayne reached [facility] Rep, authorization has date span and updated [...] documented. Denial letter and notes sent to [facility] for resubmission of PA. documented in this encounter [facility] 11-14-2023 Telephone encounter Note [facility], emailed this am to see if possible for pt to have this done today. [facility] 11-13-2023 Telephone encounter Note Signed. [facility] 11-13-2023 Telephone encounter Note Approval noted through email, but only for DOS 11/12/23. Needs new order to be R/S and for DOS extension. [facility] 10-30-2023 Telephone encounter Note Received letter for botox denial from Medicare due to lack of information. Was seen in office yesterday, new information documented. Denial letter and notes sent to [facility] for resubmission of LILIAN. [facility] 10-29-2023 Instructions Erika Conway PA-C - [...] at this time. documented in this encounter [facility] 10-29-2023 History of Presen t illness Narrative This note was created using [employer]. Subjective Capri Aguilar is a 48 year [...] Acute gastritis without mention of hemorrhage CHARCOT Nhdtqvw-Jcodm-dewwx disease, deafness, and intellectual disability syndrome Eczema Darin-Danlos syndrome Fibromyalgia GERD (gastroesophageal reflux disease) Loss [...] 14 TONSILLECTOMY PRIMARY/SECONDARY <AGE 14 1983 Tonsillectomy Social History Tobacco Use Smoking status: [...] migrainosus - ICD9: 346.73, ICD10: G43.711 3. 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 Lgmuiip-Pximd-Ehxcd disease - ICD9: 356.1, ICD10: G60.0 Erika Conway PA-C documented in this encounter [facility] 10-29-2023 Telephone encounter Note I'll discuss it with her at today's office visit. [facility] 10-29-2023 Miscellaneous Notes I'll discuss it [...] B / Product Type: Medicare / Hospital: [facility]* indirect sales representative/website used: [place]: [id number] Phone Number Called: N/A Time of call/verification: 3:49 PM Case Reference number: [id number] Was initial clinical information received? Yes When? 09/19/23 Did payer provide how many pages were received? n/a If yes, How many pages were received? n/a Diagnosis Codes: Diagnoses: G43.909 (ICD-10-CM) - Migraine without status migrainosus, not intractable, unspecified migraine type Procedure Codes: 36463 Call reference: n/a Comments: Per fax the case has been denied, documentation does not support the clinical efectiveness for subsequent botullinum toxin injection per lcd documented in this encounter [facility] 10-29-2023 Telephone encounter Note Lebron, Please [...] / Product Type: Medicare / Hospital: [facility]* indirect sales representative/website used: [place]: [id number] Phone Number Called: N/A Time of call/verification: 3:49 PM Case Reference number: [id number] Was initial clinical information received? Yes When? 09/19/23 Did payer provide how many pages were received? n/a If yes, How many pages were received? n/a Diagnosis Codes: Diagnoses: G43.909 (ICD-10-CM) - Migraine without status migrainosus, not intractable, unspecified migraine type Procedure Codes: 46877 Call reference: n/a Comments: Per fax the case has been denied, documentation does not support the clinical efectiveness for subsequent botullinum toxin injection per lcd [facility] 10-24-2023 Telephone encounter Note The following [...] up to 25 days Erika Conway PA-C [facility] 10-24-2023 Miscellaneous Notes The following approved [...] in the meantime. documented in this encounter [facility] 10-24-2023 Telephone encounter Note Notice for script received from pharmacy - last script sent was dated 10/02/23, now . Spoke with pt who said she does need another script, she has been waiting on it to come in since it is on backorder, but in the meantime. [facility] 10-24-2023 Hospital Discharg e Dejon Dunham [...] normally would, but you do need a team truck driver. Additional Instructions: documented in this encounter [facility] 10-24-2023 Surgery Surgical operation note Summary: TPI Trigger Point Injection PROCEDURE: trigger point injection CPT code: 53736 PREPROCEDURE DIAGNOSIS: Fibromyalgia POSTPROCEDURE DIAGNOSIS: same ANESTHESIA: [...] DATE: October 24, 2023 TIME: 9:22 AM [facility] 10-24-2023 Surgical operatio n note Summary: TPI Trigger Point Injection PROCEDURE: trigger point injection CPT code: 65535 PREPROCEDURE DIAGNOSIS: Fibromyalgia POSTPROCEDURE DIAGNOSIS: same ANESTHESIA: [...] TIME: 9:22 AM documented in this encounter [facility] 10-22-2023 Surgery Surgical operation note Summary: TPI Trigger Point Injection PROCEDURE: trigger point injection CPT code: 48871 PREPROCEDURE DIAGNOSIS: Fibromyalgia POSTPROCEDURE DIAGNOSIS: same ANESTHESIA: [...] DATE: October 22, 2023 TIME: 3:45 PM [facility] 10-22-2023 Surgical operatio n note Summary: TPI Trigger Point Injection PROCEDURE: trigger point injection CPT code: 77249 PREPROCEDURE DIAGNOSIS: Fibromyalgia POSTPROCEDURE DIAGNOSIS: same ANESTHESIA: [...] TIME: 3:45 PM documented in this encounter [facility] 10-22-2023 Hospital Discharg e instructions Dejon [...] normally would, but you do need a team truck driver. Additional Instructions: documented in this encounter [facility] 09-19-2023 Instructions Erika Conway PA-C - [...] at this time. documented in this encounter [facility] 09-19-2023 History of Presen t illness Narrative This note was created using [employer]. 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 Rdtjajq-Wufxj-Exrpg disease - ICD9: 356.1, ICD10: G60.0 5. Chronic pain syndrome - ICD9: 338.4, ICD10: G89.4 - OXYCODONE 20 MG/ML ORAL CONCENTRATE Erika Conway PA-C documented in this encounter [facility] 09-03-2023 Hospital Discharg e instructions Dejon [...] normally would, but you do need a team truck driver. Additional Instructions: documented in this encounter [facility] 09-03-2023 Surgical operatio n note Summary: TPI Trigger Point Injection PROCEDURE: trigger point injection CPT code: 53929 PREPROCEDURE DIAGNOSIS: Fibromyalgia POSTPROCEDURE DIAGNOSIS: same ANESTHESIA: [...] TIME: 3:04 PM documented in this encounter [facility] 09-02-2023 Miscellaneous Notes The following approved [...] 2023 12:53 PM documented in this encounter [facility] 08-29-2023 Hospital Discharg e instructions Dejon [...] normally would, but you do need a team truck driver. Additional Instructions: documented in this encounter [facility] 08-29-2023 Surgical operatio n note Summary: TPI Trigger Point Injection PROCEDURE: trigger point injection CPT code: 70086 PREPROCEDURE DIAGNOSIS: Fibromyalgia1 POSTPROCEDURE DIAGNOSIS: same ANESTHESIA: [...] TIME: 3:06 PM documented in this encounter [facility] 08-12-2023 Procedure note [facility] 08-06-2023 Hospital Discharg e instructions Dejon Andres [...] normally would, but you do need a team truck driver. Additional Instructions: documented in this encounter [facility] 08-06-2023 Surgical operatio n note Summary: Botox injection Botox Injection PROCEDURE: Botox injection CPT code: 64061 PREPROCEDURE DIAGNOSIS: Migraine headache POSTPROCEDURE DIAGNOSIS: same ANESTHESIA: none PROCEDURE REPORT: The risks and benefits of the procedure were explained to the patient and all questions were answered. The patient gave consent to proceed with the procedure. The skin was prepped with alcohol. BOTOX Lot Number: [id number] BOTOX was reconstituted to a concentration of 2.5 U/0.1mL. The following injections were made using a 30G needle: 15 Botox units to the procerus muscle 15 Botox units to the right hot air furnace installer and repairer supercilii muscle 15 Botox units to the left hot air furnace installer and repairer supercilii muscle 30 Botox units to the [...] TIME: 2:51 PM documented in this encounter [facility] 07-25-2023 Miscellaneous Notes The following approved [...] Drug Present Oxycodone 7125 ng/mg creat Oxymorphone 48001 ng/mg creat Noroxycodone >93864 ng/mg creat Noroxymorphone 5903 ng/mg creat Sources of oxycodone are scheduled prescription medications. Oxymorphone, noroxycodone, and noroxymorphone are expected metabolites of oxycodone. Oxymorphone is also available as a scheduled prescription medication. ==== Test Result Flag Units Ref Range Creatinine 68 mg/dL >=20 ==== Declared Medications: Medication list was not provided. ==== For clinical consultation, please call . ==== No results found for: "UQNOTE", "OPIATEPNMGT", "DRUGSCRPAIN" Urine Panel: No results found for: "UQCANN", "UQBNZL", "KLN0MGA", "UQAMPH", "UQMAMP", "UQBUPRE", "UQNORBUP", "UQMTHD", "UQEDDP", "UQTRAM", "UQDTRM", "UQFNTL", "UQNFTL", "UQCODE", "UQMORP", "UQDCDN", "UQHCOD", "UQOXYC", "UQHMOR", "UQOXYM", "UQCREA", "UQPH", "UQSPGR", "UQOXID", "UQSPQ" @FLOW([id number])@ Lab Results Component Value Date SUMM FINAL [...] Margot Lanier RN documented in this encounter [facility] 04-23-2023 Miscellaneous Notes Summary: Pt to see Dr Andres Items addressed in this encounter: MyChart Encounter Patient will see Dr Andres and speak to him about her injections. She will call in for refills until her first appt with Dr Andres Jun 19, 2023 Able to close encounter. Sharyn Page MA April 23, 2023 1:09 PM 1:09 PM documented in this encounter [facility] 04-23-2023 Miscellaneous Notes Summary: Virtual Visit Pre Check In Items addressed in this encounter: Virtual Visit Pre Check In Able to close encounter. Sharyn Page MA April 23, 2023 6:40 AM 6:40 AM documented in this encounter [facility] 03-27-2023 Miscellaneous Notes Discussed with Ana, she will call pt Roxana Byrne RN March 27, 2023 2:06 PM documented in this encounter [facility] 03-19-2023 Miscellaneous Notes Order placed Capri Gonzalez will be due for her next Botox injection on May 01. Please build a case and closer to that date I will speak to her and get an update on the previous injection. Ana Harmon March 19, 2023 11:02 AM documented in this encounter [facility] 03-18-2023 Instructions Morteza Meza DO - 03/18/2023 4:54 PM EDT Continue OxyIR liquid 2. Continue Botox q12 weeks - last done on 01/31/23-100% relief. Check on rescheduling for 05/01/2023. 3. Continue Trigger Point Injections - last done on 10/25/22-TPI scheduled for 04/24/23 5. Patient was transferred to for next follow-up visit in 3 months. documented in this encounter [facility] 03-18-2023 History of Presen t illness Narrative Summary: Pain management follow-up DATE: March 18, 2023 Chief Complaint: migraines, whole body joint and muscle pain ___ History of Present Illness: Capri Aguilar is a 47 year old female being seen at [facility] for a evaluation and/or [...] 05/04/2020 Medication trials: Imitrex, Topamax, nortriptyline, Maxalt, dunz-kvx-bndhgft Excedrin, Tylenol, Advil, Phenergan, patient cannot tolerate [...] Drug Present Oxycodone 7125 ng/mg creat Oxymorphone 25822 ng/mg creat Noroxycodone >52967 ng/mg creat Noroxymorphone 5903 ng/mg creat Sources [...] Acute gastritis without mention of hemorrhage CHARCOT Lrlvlnx-Qlayi-zaoea disease, deafness, and intellectual disability syndrome Eczema Darin-Danlos syndrome Fibromyalgia GERD (gastroesophageal reflux disease) Loss [...] 128/66 Pulse 84 Resp 19 Ht 5' 8.4" (1.74m) Wt 108 lb (49.0kg) SpO2 96% [...] aura and with status migrainosus G43.711 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 Chronic pain syndrome G89.4 6. Bavkwkz-Lqmqe-Cqish syndrome G60.0 Patient is stable. Chronic pain [...] encounter was entered by Renetta Guajardo medical records custodian for Dr. Morteza Meza on March 18, [...] March 18, 2023. documented in this encounter [facility] 02-22-2023 Instructions Paola Falcon APRN.CNP - 02/22/2023 4:09 PM EDT Continue OxyIR liquid Continue Botox q12 weeks - last done on 01/31/23-100% relief Continue Trigger Point Injections - last done on 10/25/22-scheduled for 02/27/23 F/U in 1 month Paola Falcon APRN.PHOTOGRAPHER HELPER documented in this encounter [facility] 02-22-2023 Miscellaneous Notes I spoke with Capri and verified her TPI's are on Feb 27 at 3:45. She verbalized understanding. There was a different procedure scheduled that day/time so it was corrected. Ana February 22, 2023 4:07 PM documented in this encounter [facility] 02-22-2023 History of Presen t illness Narrative This video visit was performed via [employer] video visit. Patient consented to receive health care services via virtual visit for this encounter Provider Location: [facility] Facility Patient Location: Patient Home or Place of Residence I have communicated my name and active licensure. The patient's identity and physical location were verified at the time of this visit. Either the patient or their legal sales representative consultant has been informed of the risks and benefits of -- and alternatives to -- treatment through a remote evaluation and consents to proceed with the evaluation remotely. Chief Complaint: Pain ___ History of Present Illness: Capri Aguilar is a 47 year old year old female being seen at [facility] for a evaluation and/or [...] 05/04/2020 Medication trials: Imitrex, Topamax, nortriptyline, Maxalt, ntlj-xbg-omyjgva Excedrin, Tylenol, Advil, Phenergan, patient cannot tolerate [...] Drug Present Oxycodone 7125 ng/mg creat Oxymorphone 39561 ng/mg creat Noroxycodone >73025 ng/mg creat Noroxymorphone 5903 ng/mg creat Sources [...] Acute gastritis without mention of hemorrhage CHARCOT Sqbfazq-Dbekr-mmjnr disease, deafness, and intellectual disability syndrome Eczema Darin-Danlos syndrome Fibromyalgia GERD (gastroesophageal reflux disease) Loss [...] aura and with status migrainosus G43.711 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 Chronic pain syndrome G89.4 6. Xuscjop-Hzrij-Xxgip syndrome G60.0 7. intermediate frame tender (current) use of opiate analgesic Z79.891 8. Migraine variant G43.809 9. Myofascial pain syndrome M79.18 10. POTS (postural orthostatic tachycardia syndrome) G90.A 11. Marfan's syndrome Q87.40 12. Xtpdrdj-Fzipg-Dakkp disease G60.0 Plan: The pain management agreement [...] Paola Falcon APRN.VISHAL documented in this encounter [facility] 02-21-2023 Miscellaneous Notes I built the [...] 2023 3:45 PM documented in this encounter [facility] 02-21-2023 Miscellaneous Notes Summary: Virtual Visit Pre Check In Items addressed in this encounter: Virtual Visit Pre Check In Able to close encounter. Sharyn Page MA February 21, 2023 3:24 PM 3:24 PM documented in this encounter [facility] 01-31-2023 Surgical operatio n note Summary: Botox injections FUNCTIONAL ASSESSMENT: See nurses documentation. Pt had 50% benefit from the last injection. MIGRAINE PROGRESS NOTE: Location: Bilateral occipital, bilateral temporal, bilateral frontal region, bilateral cervical paraspinal muscle Frequency: Greater than 180 hours prior to starting Botox injections. Patient had 0 migraine attacks last month with current regimen. Medication trials: Imitrex, Topamax, Maxalt, gbkf-ydq-mwcbvah Excedrin, Tylenol, Advil, Phenergan, patient cannot tolerate [...] the face at the temporal region was [id number]. The expiration date is July of 2025. The Botox lot number utilized for the cervical and occipital regions was [id number].The expiration date is also the same of July 2025. Botox was reconstituted to a concentration of 5 units per 0.1 cc. The following injections were made using a 25-gauge, 38 mm needle: 1. 10 units divided in 2 sites to the hot air furnace installer and repairer muscles. 2. 5 units in 1 site [...] for this encounter was entered by Renetta Guajardo, medical records custodian, for Dr. Morteza Meza on January 31, [...] January 31, 2023. documented in this encounter [facility] 01-23-2023 History of Presen t illness Narrative This video visit was performed via [employer] video visit. Patient consented to receive health care services via virtual visit for this encounter Provider Location: [facility] Patient Location: Patient Home or Place of Residence I have communicated my name and active licensure. The patient's identity and physical location were verified at the time of this visit. Either the patient or their legal sales representative consultant has been informed of the risks and benefits of -- and alternatives to -- treatment through a remote evaluation and consents to proceed with the evaluation remotely. Chief Complaint: Pain ___ History of Present Illness: Capri Aguilar is a 47 year old year old female being seen at [facility] for a evaluation and/or [...] 05/04/2020 Medication trials: Imitrex, Topamax, nortriptyline, Maxalt, [id number]-tybxovx Excedrin, Tylenol, Advil, Phenergan, patient cannot tolerate [...] Test Result Flag Units Drug Present Oxycodone 27762 ng/mg creat Oxymorphone >50883 ng/mg creat Noroxycodone >39985 ng/mg creat Noroxymorphone 9037 ng/mg creat Sources [...] Acute gastritis without mention of hemorrhage CHARCOT Atoaloj-Kyaty-vsmah disease, deafness, and intellectual disability syndrome Eczema Darin-Danlos syndrome Fibromyalgia GERD (gastroesophageal reflux disease) Loss [...] aura and with status migrainosus G43.711 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 retirement (current) use of opiate analgesic Z79.891 Plan: [...] 10/25/22 F/U in 1 month Demian Forman APRN.PHOTOGRAPHER HELPER documented in this encounter [facility] 01-23-2023 Instructions Demian Forman APRN.CNP - 01/23/2023 1:13 PM EDT Order UDS - will collect at procedure Continue OxyIR liquid Continue Botox q12 weeks - last done on 11/01/22 Continue Trigger Point Injections - last done on 10/25/22 She declines further lidocaine infusions F/U in 1 month documented in this encounter [facility] 12-19-2022 History of Presen t illness Narrative This video visit was performed via [employer] video visit. Patient consented to receive health care services via virtual visit for this encounter Provider Location: [facility] Patient Location: Patient Home or Place of Residence I have communicated my name and active licensure. The patient's identity and physical location were verified at the time of this visit. Either the patient or their legal sales representative consultant has been informed of the risks and benefits of -- and alternatives to -- treatment through a remote evaluation and consents to proceed with the evaluation remotely. Chief Complaint: Pain ___ History of Present Illness: Capri Aguilar is a 47 year old year old female being seen at [facility] for a evaluation and/or [...] 05/04/2020 Medication trials: Imitrex, Topamax, nortriptyline, Maxalt, [id number] Excedrin, Tylenol, Advil, Phenergan, patient cannot tolerate [...] Test Result Flag Units Drug Present Oxycodone 54360 ng/mg creat Oxymorphone >23626 ng/mg creat Noroxycodone >35610 ng/mg creat Noroxymorphone 9037 ng/mg creat Sources [...] Acute gastritis without mention of hemorrhage CHARCOT Vzfzlol-Fztss-gxcfv disease, deafness, and intellectual disability syndrome Eczema Darin-Danlos syndrome Fibromyalgia GERD (gastroesophageal reflux disease) Loss [...] aura and with status migrainosus G43.711 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 intermediate frame tender (current) use of opiate analgesic Z79.891 Plan: [...] Demian Forman APRN.CNP documented in this encounter [facility] 12-19-2022 Instructions Demian Forman APRN.CNP - 12/19/2022 12:53 PM EDT Continue OxyIR liquid Continue Botox q12 weeks - last done on 11/01/22 Continue Trigger Point Injections - last done on 10/25/22 She declines further lidocaine infusions Stop remeron F/U in 1 month documented in this encounter [facility] 11-27-2022 History of Presen t illness Narrative This video visit was performed via [employer] video visit. Patient consented to receive health care services via virtual visit for this encounter Provider Location: [facility] Patient Location: Patient Home or Place of Residence I have communicated my name and active licensure. The patient's identity and physical location were verified at the time of this visit. Either the patient or their legal sales representative consultant has been informed of the risks and benefits of -- and alternatives to -- treatment through a remote evaluation and consents to proceed with the evaluation remotely. Chief Complaint: Pain ___ History of Present Illness: Capri Aguilar is a 47 year old year old female being seen at [facility] for a evaluation and/or [...] 05/04/2020 Medication trials: Imitrex, Topamax, nortriptyline, Maxalt, [id number]-ospdxsg Excedrin, Tylenol, Advil, Phenergan, patient cannot tolerate [...] Test Result Flag Units Drug Present Oxycodone 37819 ng/mg creat Oxymorphone >01583 ng/mg creat Noroxycodone >12878 ng/mg creat Noroxymorphone 9037 ng/mg creat Sources [...] Acute gastritis without mention of hemorrhage CHARCOT Tyhstwh-Nshkm-xtkbh disease, deafness, and intellectual disability syndrome Eczema Darin-Danlos syndrome Fibromyalgia GERD (gastroesophageal reflux disease) Loss [...] aura and with status migrainosus G43.711 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 Migraine variant G43.809 6. intermediate frame tender (current) use of opiate analgesic Z79.891 Plan: [...] Demian Forman APRN.CNP documented in this encounter [facility] 11-27-2022 Instructions Demian Forman APRN.CNP - 11/27/2022 12:57 PM EDT Continue OxyIR liquid Continue Botox q12 weeks - last done on 11/01/22 Continue Trigger Point Injections - last done on 10/25/22 She declines further lidocaine infusions Trial of remeron F/U in 1 month documented in this encounter [facility] 2022 Miscellaneous Notes PLease collect UDS at I. Thanks documented in this encounter [facility] 10-10-2022 History of Presen t illness Narrative This video visit was performed via [employer] video visit. Patient consented to receive health care services via virtual visit for this encounter Provider Location: [facility] Patient Location: Patient Home or Place of Residence I have communicated my name and active licensure. The patient's identity and physical location were verified at the time of this visit. Either the patient or their legal sales representative consultant has been informed of the risks and benefits of -- and alternatives to -- treatment through a remote evaluation and consents to proceed with the evaluation remotely. Chief Complaint: Pain ___ History of Present Illness: Capri Aguilar is a 46 year old year old female being seen at [facility] for a evaluation and/or [...] Test Result Flag Units Drug Present Oxycodone 30256 ng/mg creat Oxymorphone >50761 ng/mg creat Noroxycodone >25896 ng/mg creat Noroxymorphone 9037 ng/mg creat Sources [...] Acute gastritis without mention of hemorrhage CHARCOT Altxkvu-Vnydd-hyqwp disease, deafness, and intellectual disability syndrome Eczema Darin-Danlos syndrome Fibromyalgia GERD (gastroesophageal reflux disease) Loss [...] ICD-10-CM 1. Other chronic pain G89.29 2. retirement (current) use of opiate analgesic Z79.891 3. [...] infusions F/U in 1 month Demian Forman APRN.VISHAL documented in this encounter [facility] 10-10-2022 Instructions Demian Forman APRN.CNP - 10/10/2022 2:03 PM EDT Continue OxyIR liquid Continue Botox q12 weeks, patient already has future appointment scheduled Continue Trigger Point Injections, patient already has future appointment scheduled. She declines further lidocaine infusions F/U in 1 month documented in this encounter [facility] 09-12-2022 History of Presen t illness Narrative This video visit was performed via [employer] video visit. Patient consented to receive health care services via virtual visit for this encounter Provider Location: Non[facility] Patient Location: Patient Home or Place of Residence I have communicated my name and active licensure. The patient's identity and physical location were verified at the time of this visit. Either the patient or their legal sales representative consultant has been informed of the risks and benefits of -- and alternatives to -- treatment through a remote evaluation and consents to proceed with the evaluation remotely. Chief Complaint: Pain ___ History of Present Illness: Capri Aguilar is a 46 year old year old female being seen at [facility] for a evaluation and/or [...] Test Result Flag Units Drug Present Oxycodone 04020 ng/mg creat Oxymorphone >97715 ng/mg creat Noroxycodone >69123 ng/mg creat Noroxymorphone 9037 ng/mg creat Sources [...] Acute gastritis without mention of hemorrhage CHARCOT Qfrulme-Xzdot-jjqkg disease, deafness, and intellectual disability syndrome Eczema Darin-Danlos syndrome Fibromyalgia GERD (gastroesophageal reflux disease) Loss [...] ICD-10-CM 1. Other chronic pain G89.29 2. retirement (current) use of opiate analgesic Z79.891 3. 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 Migraine variant G43.809 6. [...] Demian Forman APRN.CNP documented in this encounter [facility] 09-12-2022 Instructions Demian Forman APRN.VISHAL - 09/12/2022 1:00 PM EDT Continue OxyIR liquid Continue Botox q12 weeks, patient already has future appointment scheduled Continue Trigger Point Injections, patient already has future appointment scheduled. She declines further lidocaine infusions F/U in 1 month documented in this encounter [facility] 08-23-2022 Surgical operatio n note Summary: [...] for this encounter was entered by Renetta Guajardo, medical records custodian, for Dr. Morteza Meza on August 23, [...] August 23, 2022. documented in this encounter [facility] 08-21-2022 History of Presen t illness Narrative This video visit was performed via [employer] video visit. Patient consented to receive health care services via virtual visit for this encounter Provider Location: Non[facility] Patient Location: Patient Home or Place of Residence I have communicated my name and active licensure. The patient's identity and physical location were verified at the time of this visit. Either the patient or their legal sales representative consultant has been informed of the risks and benefits of -- and alternatives to -- treatment through a remote evaluation and consents to proceed with the evaluation remotely. Chief Complaint: Pain ___ History of Present Illness: Capri Aguilar is a 46 year old year old female being seen at [facility] for a evaluation and/or [...] Test Result Flag Units Drug Present Oxycodone 09231 ng/mg creat Oxymorphone >92863 ng/mg creat Noroxycodone >02702 ng/mg creat Noroxymorphone 9037 ng/mg creat Sources [...] Acute gastritis without mention of hemorrhage CHARCOT Auqckyu-Ygewv-qpqkj disease, deafness, and intellectual disability syndrome Eczema Darin-Danlos syndrome Fibromyalgia GERD (gastroesophageal reflux disease) Loss [...] ICD-10-CM 1. Other chronic pain G89.29 2. retirement (current) use of opiate analgesic Z79.891 3. Fibromyalgia M79.7 4. 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 She declines further lidocaine infusions F/U in 1 month documented in this encounter [facility] 07-24-2022 Miscellaneous Notes I left a message to schedule Botox. Offer 08/01/2022 Ana July 24, 2022 2:24 PM documented in this encounter [facility] 07-03-2022 History of Presen t illness Narrative This video visit was performed via [employer] video visit. Patient consented to receive health care services via virtual visit for this encounter Provider Location: [facility] Patient Location: Patient Home or Place of Residence Risks, benefits, and limitations of receiving care virtually were discussed with the patient. The patient expressed understanding and is willing to proceed. Chief Complaint: Pain ___ History of Present Illness: Capri Aguilar is a 46 year old year old female being seen at [facility] for a evaluation and/or [...] Acute gastritis without mention of hemorrhage CHARCOT Qeixmcy-Kuhwx-iuaep disease, deafness, and intellectual disability syndrome Eczema Darin-Danlos syndrome Fibromyalgia GERD (gastroesophageal reflux disease) Loss [...] ICD-10-CM 1. Other chronic pain G89.29 2. retirement (current) use of opiate analgesic Z79.891 3. Fibromyalgia M79.7 4. 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 She declines further lidocaine infusions F/U in 1 month documented in this encounter [facility] 06-06-2022 Miscellaneous Notes The following approved [...] DEMIAN FORMAN APRN.CNP documented in this encounter [facility] 05-07-2022 History of Presen t illness Narrative This video visit was performed via [employer] video visit. Patient consented to receive health care services via virtual visit for this encounter Provider Location: [facility] Patient Location: Patient Home or Place of Residence Risks, benefits, and limitations of receiving care virtually were discussed with the patient. The patient expressed understanding and is willing to proceed. Chief Complaint: Pain ___ History of Present Illness: Capri Aguilar is a 46 year old year old female being seen at [facility] for a evaluation and/or [...] Acute gastritis without mention of hemorrhage CHARCOT Sjprmpf-Xseid-ovmjz disease, deafness, and intellectual disability syndrome Eczema Darin-Danlos syndrome Fibromyalgia GERD (gastroesophageal reflux disease) Loss [...] pain is persistent. Medications are helping Capri R Aguilar to have an improved quality of life. Patient compliance with Opioid Contract: not applicable Encounter Diagnosis ICD-10-CM 1. Other chronic pain G89.29 2. retirement (current) use of opiate analgesic Z79.891 3. [...] Demian Forman APRN.CNP documented in this encounter [facility] 05-07-2022 Instructions Demian Forman APRN.CNP - 05/07/2022 1:33 PM EST Continue OxyIR liquid Continue Botox q12 weeks, patient already has future appointment scheduled Continue Trigger Point Injections, patient already has future appointment scheduled. She declines further lidocaine infusions F/U in 1 month documented in this encounter [facility] 04-20-2022 History of Presen t illness Narrative This video visit was performed via [employer] video visit. Patient consented to receive health care services via virtual visit for this encounter Provider Location: Non[facility] Patient Location: Patient Home or Place of Residence Risks, benefits, and limitations of receiving care virtually were discussed with the patient. The patient expressed understanding and is willing to proceed. Chief Complaint: Pain ___ History of Present Illness: Capri Aguilar is a 46 year old year old female being seen at [facility] for a evaluation and/or [...] Acute gastritis without mention of hemorrhage CHARCOT Dbykxni-Najni-lcidd disease, deafness, and intellectual disability syndrome Eczema Darin-Danlos syndrome Fibromyalgia GERD (gastroesophageal reflux disease) Loss [...] Encounter Diagnosis ICD-10-CM 1. Fibromyalgia M79.7 2. retirement (current) use of opiate analgesic Z79.891 3. [...] Demian Forman APRN.CNP documented in this encounter [facility] 04-20-2022 Instructions Demian Forman APRN.CNP - 04/20/2022 2:42 PM EST Continue OxyIR liquid Continue Botox q12 weeks, patient already has future appointment scheduled Continue Trigger Point Injections, patient already has future appointment scheduled. She declines further lidocaine infusions F/U in 1 month documented in this encounter [facility] 02-23-2022 History of Presen t illness Narrative This video visit was performed via [employer] video visit. Patient consented to receive health care services via virtual visit for this encounter Provider Location: [facility] Patient Location: Patient Home or Place of Residence Risks, benefits, and limitations of receiving care virtually were discussed with the patient. The patient expressed understanding and is willing to proceed. Chief Complaint: Pain ___ History of Present Illness: Capri Agiular is a 46 year old year old female being seen at [facility] for a evaluation and/or management of her chronic pain. The patient was last seen virtually on 01/02/2022. She states that since the last visit symptoms have been stable. She continues to report benefit from the botox and TPI's. The patient reports having no migraines since her last Botox injection done on 01/17/22. She saw her director radiation oncology and was prescribed Provigil. Otherwise, her medical [...] Acute gastritis without mention of hemorrhage CHARCOT Xzofcyc-Albdy-hwvxi disease, deafness, and intellectual disability syndrome Eczema Darin-Danlos syndrome Fibromyalgia GERD (gastroesophageal reflux disease) Loss [...] Encounter Diagnosis ICD-10-CM 1. Fibromyalgia M79.7 2. intermediate frame tender (current) use of opiate analgesic Z79.891 3. [...] infusions F/U in 1 month Demian Forman APRN.VISHAL documented in this encounter [facility] 02-23-2022 Instructions Demian Forman APRN.CNP - 02/23/2022 1:22 PM EDT Continue OxyIR liquid Continue Botox q12 weeks, patient already has future appointment scheduled Continue Trigger Point Injections, patient already has future appointment scheduled. She declines further lidocaine infusions F/U in 1 month documented in this encounter [facility] 01-30-2022 Instructions Morteza Meza DO - 01/30/2022 3:22 PM EDT Continue OxyIR liquid 2. Continue Botox q12 weeks, patient already has future appointment scheduled 3. Continue Trigger Point Injections, patient already has future appointment scheduled. Discussed changing to 0.5% Marcaine for next trigger point injection. 4. She declines further lidocaine infusions 5. F/U in 1 month(s) with GROCERY ASSOCIATE 6. Obtain UDS documented in this encounter [facility] 01-30-2022 History of Presen t illness Narrative Summary: Pain management office follow-up visit DATE: January 30, 2022 Chief Complaint: Whole body pain ___ History of Present Illness: Capri Aguilar is a 46 year old female being seen at [facility] for a evaluation and/or [...] Acute gastritis without mention of hemorrhage CHARCOT Njtybxh-Xiuhb-dpmvr disease, deafness, and intellectual disability syndrome Eczema Darin-Danlos syndrome Fibromyalgia GERD (gastroesophageal reflux disease) Loss [...] 132/81 Pulse 101 Resp 19 Ht 5' 8.4" (1.74m) Wt 102 lb (46.3kg) SpO2 98% [...] POTS syndrome 4. Erler's Danlos syndrome 5. Wmqxmzy-Llcwv-Wiunt syndrome Patient is stable. Chronic pain is [...] Morteza Meza DO documented in this encounter [facility] 01-02-2022 Instructions Demian Forman APRN.CNP - 01/02/2022 4:06 PM EDT Continue OxyIR Continue Botox q12 weeks- next injection 01/17/2022 Continue Trigger Point Injections She declines further lidocaine infusions F/U in 1 month(s). documented in this encounter [facility] 01-02-2022 History of Presen t illness Narrative This visit was conducted as a virtual visit. Provider Location: [facility] Patient Location: Patient Home or Place of Residence Chief Complaint: Pain ___ History of Present Illness: Capri Aguilar is a 46 year old year old female being seen at [facility] for a evaluation and/or [...] Acute gastritis without mention of hemorrhage CHARCOT Eiigpgt-Rppoy-kyzpu disease, deafness, and intellectual disability syndrome Eczema Darin-Danlos syndrome GERD (gastroesophageal reflux disease) Loss of [...] M79.7 3. Myofascial pain syndrome M79.18 4. intermediate frame tender (current) use of opiate analgesic Z79.891 5. [...] Demian Forman APRN.VISHAL documented in this encounter [facility] 12-13-2021 Miscellaneous Notes Summary: TRIGGER POINT [...] to approved criteria documented in this encounter [facility] 12-08-2021 History of Presen t illness Narrative Summary: Follow Up- Virtual Visit This visit was conducted as a virtual visit. DATE: December 08, 2021 Chief Complaint: Generalized Pain, Migraines ___ History of Present Illness: Capri Aguilar is a 46 year old year old female being seen at [facility] for a evaluation and/or [...] Acute gastritis without mention of hemorrhage CHARCOT Rmexogi-Mkrfq-riztw disease, deafness, and intellectual disability syndrome Eczema Darin-Danlos syndrome GERD (gastroesophageal reflux disease) Loss of [...] (FLONASE) 50 mcg/actuation nasal spray Use 1 [place] in each nostril once daily. megestrol (MEGACE) [...] % topical cream Apply small amount (eg., "pea-sized glob" divided up) to entire area of acne [...] activity was identified. 12/08/2021 by Rashida Lange APRN.PHOTOGRAPHER HELPER PLAN: The patient understands the goal of [...] is 01/30/[address] Meza* Rashida Lange APRN.PHOTOGRAPHER HELPER documented in this encounter [facility] 08-09-2008 History of Past i llness [...] of this encounter (statuses as of 09/21/2021) [facility] History of Past illness Narrative* Problem [...] of this encounter (statuses as of 10/12/2021) [facility] History of Past illness Narrative* Problem [...] of this encounter (statuses as of 10/19/2021) [facility] of Past [facility] Narrative* Problem [...] of this encounter (statuses as of 11/16/2021) [facility] of Past [facility] Narrative* Problem [...] of this encounter (statuses as of 11/22/2021) [facility] of [facility] Narrative* Problem [...] of this encounter (statuses as of 12/08/2021) [facility] of [facility] Narrative* Problem [...] of this encounter (statuses as of 12/14/2021) [facility] of [facility] Narrative* Problem [...] of this encounter (statuses as of 12/26/2021) [facility] of [facility] Narrative* Problem [...] of this encounter (statuses as of 01/02/2022) [facility] Narrative* Problem [...] of this encounter (statuses as of 01/31/2022) [facility] Narrative* Problem [...] of this encounter (statuses as of 02/23/2022) [facility] Narrative* Problem [...] of this encounter (statuses as of 04/20/2022) [facility] History of Past illness Narrative* Problem [...] of this encounter (statuses as of 04/25/2022) [facility] History of Past illness Narrative* Problem [...] of this encounter (statuses as of 04/26/2022) [facility] History of Past illness Narrative* Problem [...] of this encounter (statuses as of 05/07/2022) [facility] History of Past illness Narrative* Problem [...] of this encounter (statuses as of 06/12/2022) [facility] Past illness Narrative* Problem [...] of this encounter (statuses as of 07/03/2022) [facility] Past [facility] Narrative* Problem [...] of this encounter (statuses as of 07/10/2022) [facility] Past [facility] Narrative* Problem [...] of this encounter (statuses as of 07/26/2022) [facility] Past [facility] Narrative* Problem [...] of this encounter (statuses as of 08/02/2022) [facility] Past [facility] Narrative* Problem [...] of this encounter (statuses as of 08/21/2022) [facility] Past [facility] Narrative* Problem [...] of this encounter (statuses as of 08/24/2022) [facility] Past [facility] Narrative* Problem [...] of this encounter (statuses as of 09/13/2022) [facility] Narrative* Problem [...] of this encounter (statuses as of 10/11/2022) [facility] Past [facility] Narrative* Problem [...] of this encounter (statuses as of 10/17/2022) [facility] Narrative* Problem [...] of this encounter (statuses as of 10/19/2022) [facility] Past [facility] Narrative* Problem [...] of this encounter (statuses as of 11/06/2022) [facility] Narrative* Problem [...] of this encounter (statuses as of 11/28/2022) [facility] Narrative* Problem [...] of this encounter (statuses as of 12/18/2022) [facility] Narrative* Problem [...] of this encounter (statuses as of 12/20/2022) [facility] Narrative* Problem [...] of this encounter (statuses as of 01/24/2023) [facility] Narrative* Problem [...] of this encounter (statuses as of 01/31/2023) [facility] Narrative* Problem [...] of this encounter (statuses as of 02/01/2023) [facility] Narrative* Problem [...] of this encounter (statuses as of 02/22/2023) [facility] Narrative* Problem [...] of this encounter (statuses as of 02/22/2023) [facility] Narrative* Problem [...] of this encounter (statuses as of 02/22/2023) [facility] Past [facility] Narrative* Problem [...] of this encounter (statuses as of 02/23/2023) [facility] Narrative* Problem [...] of this encounter (statuses as of 02/26/2023) [facility] Narrative* Problem [...] of this encounter (statuses as of 02/28/2023) [facility] Narrative* Problem [...] of this encounter (statuses as of 03/20/2023) [facility] Past [facility] Narrative* Problem [...] of this encounter (statuses as of 03/25/2023) [facility] Narrative* Problem [...] of this encounter (statuses as of 03/27/2023) [place] [address]-02-2009 History of Past illness Narrative* Problem Noted [...] of this encounter (statuses as of 04/23/2023) [facility] Past [facility] Narrative* Problem [...] of this encounter (statuses as of 05/06/2023) [facility] Narrative* Problem [...] of this encounter (statuses as of 07/25/2023) [facility] Narrative* Problem [...] of this encounter (statuses as of 08/07/2023) [facility] Past [facility] Narrative* Problem [...] of this encounter (statuses as of 08/30/2023) [facility] Past [facility] Narrative* Problem [...] of this encounter (statuses as of 09/02/2023) [facility] Past [facility] Narrative* Problem [...] of this encounter (statuses as of 09/03/2023) [facility] Past [facility] Narrative* Problem [...] of this encounter (statuses as of 09/04/2023) [facility] Past [facility] Narrative* Problem [...] of this encounter (statuses as of 09/20/2023) [facility] August 12, 2023 9:49am Note Date/Time August 12, 2023 9:49 am [facility] Medical Records Department [facility] [place] [address] Discharge Summary 08/12/23 0948 MR#: [id number] Acct: [id number] Name: CAPRI AGUILAR Rep #:[id number] : 1975 47 From: Mohit Henley MD PCP: Dr. Luisa Pemberton MD Status:[facility] Location: [place] [address] Providers Primary Care Physician: Dr. Luisa Pemberton [...] Pemberton MD; Dr. Mohit Henley MD~ Signed [facility] Work Phone: Evaluation note* Diagnosis Chronic pain syndrome- Primary Myofascial pain syndrome Mylagia and myositis, unspecified Fibromyalgia Mylagia and myositis, unspecified 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 Chronic migraine without aura, with intractable migraine, so stated, with status migrainosus Marfan's syndrome Hdysxof-Uhsqh-Hqthk disease Peroneal muscular atrophy Darin-Danlos syndrome Myofascial pain syndrome Mylagia and myositis, [...] and myositis, unspecified [facility] Diagnosis Myofascial pain syndrome Mylagia and [...] and myositis, unspecified [facility] Diagnosis Chronic pain syndrome- Primary Migraine variant Variants of migraine, not elsewhere classified, without mention of intractable migraine without mention of status migrainosus Fibromyalgia Mylagia and myositis, unspecified Myofascial pain syndrome Mylagia and myositis, unspecified retirement (current) use of opiate analgesic Intractable chronic [...] and myositis, unspecified documented in this encounter [facility] note* Diagnosis Bwtdhdp-Nmiho-Hcqcx syndrome- Primary Peroneal muscular atrophy POTS (postural orthostatic tachycardia syndrome) Tachycardia, unspecified Myofascial pain syndrome Mylagia and myositis, unspecified Myofascial pain syndrome Mylagia and myositis, unspecified Intractable chronic migraine without aura and without status migrainosus Chronic migraine without aura, with intractable migraine, so stated, without mention of status migrainosus Myofascial pain syndrome Mylagia and myositis, unspecified documented in this encounter [facility] note* Diagnosis Fibromyalgia- Primary Mylagia and myositis, unspecified intermediate frame tender (current) use of opiate analgesic Chronic pain syndrome 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 Chronic migraine without aura, with intractable migraine, so stated, with status migrainosus Intractable chronic migraine without aura and without status migrainosus Chronic migraine without aura, with intractable migraine, so stated, without mention of status migrainosus Myofascial pain syndrome Mylagia and myositis, unspecified documented in this encounter [facility] note* Diagnosis Fibromyalgia- Primary Mylagia and myositis, unspecified intermediate frame tender (current) use of opiate analgesic Chronic pain syndrome 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 Chronic migraine without aura, with intractable migraine, so stated, with status migrainosus Myofascial pain syndrome Mylagia and myositis, unspecified documented in this encounter [facility] note* Diagnosis Myofascial pain syndrome- Primary Mylagia and myositis, unspecified [facility] Migraine without aura and with status migrainosus, not intractable- Primary Migraine without aura, without mention of intractable migraine with status migrainosus Migraine without aura, intractable, without status migrainosus [facility] Other chronic pain- Primary retirement (current) use of opiate analgesic Fibromyalgia Mylagia [...] without status migrainosus [facility] Chronic pain syndrome Myofascial pain syndrome Mylagia and myositis, unspecified Migraine without aura and with status migrainosus, not intractable Migraine without aura, without mention of intractable migraine with status migrainosus Migraine without aura, intractable, without status migrainosus [facility] Other chronic pain- Primary intermediate frame tender (current) use of opiate analgesic Fibromyalgia Mylagia and myositis, unspecified Migraine variant Variants of migraine, not elsewhere classified, without mention of intractable migraine without mention of status migrainosus Darin-Danlos syndrome Chronic pain syndrome Migraine without aura [...] with status migrainosus [facility] Diagnosis Other chronic pain- Primary intermediate frame tender (current) use of opiate analgesic Fibromyalgia Mylagia and myositis, unspecified Migraine variant Variants of migraine, not elsewhere classified, without mention of intractable migraine without mention of status migrainosus Darin-Danlos syndrome Chronic pain syndrome Myofascial pain syndrome Mylagia and myositis, unspecified Myofascial pain syndrome Mylagia and myositis, unspecified 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 Chronic migraine without aura, with intractable migraine, so stated, with status migrainosus [facility] Diagnosis Other chronic pain- Primary intermediate frame tender (current) use of opiate analgesic Fibromyalgia Mylagia and myositis, unspecified Darin-Danlos syndrome Migraine variant Variants of migraine, not elsewhere classified, without mention of intractable migraine without mention of status migrainosus Myofascial pain syndrome Mylagia and myositis, unspecified Chronic pain syndrome Myofascial pain syndrome Mylagia and myositis, unspecified 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 Chronic migraine without aura, with intractable migraine, so stated, with status migrainosus [facility] Diagnosis Other chronic pain- Primary retirement (current) use of opiate analgesic Fibromyalgia Mylagia and myositis, unspecified Migraine variant Variants of migraine, not elsewhere classified, without mention of intractable migraine without mention of status migrainosus Myofascial pain syndrome Mylagia and myositis, unspecified 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 Chronic migraine without aura, with intractable migraine, so stated, with status migrainosus [facility] Diagnosis Intractable chronic migraine without aura [...] with status migrainosus [facility] Diagnosis Intractable chronic migraine without aura [...] with status migrainosus [facility] Diagnosis intermediate frame tender (current) use of opiate analgesic- Primary Chronic [...] with status migrainosus [facility] Diagnosis Other chronic pain- Primary Fibromyalgia Mylagia and myositis, unspecified 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 Chronic migraine without aura, with intractable migraine, so stated, with status migrainosus Darin-Danlos syndrome Migraine variant Variants of migraine, not elsewhere classified, without mention of intractable migraine without mention of status migrainosus retirement (current) use of opiate analgesic Chronic pain [...] with status migrainosus [facility] Diagnosis Other chronic pain- Primary Fibromyalgia Mylagia and myositis, unspecified 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 Chronic migraine without aura, with intractable migraine, so stated, with status migrainosus Darin-Danlos syndrome intermediate frame tender (current) use of opiate analgesic Chronic pain [...] with status migrainosus [facility] Diagnosis Other chronic pain- Primary Fibromyalgia Mylagia and myositis, unspecified 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 Chronic migraine without aura, with intractable migraine, so stated, with status migrainosus Darin-Danlos syndrome retirement (current) use of opiate analgesic Chronic pain syndrome Migraine variant Variants of migraine, not elsewhere classified, without mention of intractable migraine without mention of status migrainosus 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 Chronic migraine without aura, with intractable migraine, so stated, with status migrainosus [facility] Diagnosis Migraine without aura and with status migrainosus, not intractable- Primary Migraine without aura, without mention of intractable migraine with status migrainosus Migraine with aura, intractable, without status migrainosus Migraine without aura and with status migrainosus, not intractable Migraine without aura, without mention of intractable migraine with status migrainosus Migraine with aura, intractable, without status migrainosus [facility] Diagnosis Myofascial pain syndrome- Primary Mylagia and myositis, unspecified [facility] Diagnosis Other chronic pain- Primary Fibromyalgia Mylagia and myositis, unspecified 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 Chronic migraine without aura, with intractable migraine, so stated, with status migrainosus Darin-Danlos syndrome Chronic pain syndrome [id number]-Autwz-Amhpt syndrome Peroneal muscular atrophy intermediate frame tender (current) use of opiate analgesic Migraine variant Variants of migraine, not elsewhere classified, without mention of intractable migraine without mention of status migrainosus Myofascial pain syndrome Mylagia and myositis, unspecified POTS (postural orthostatic tachycardia syndrome) Tachycardia, unspecified Marfan's syndrome Yoyshda-Ijiar-Ppuar disease Peroneal muscular atrophy Myofascial pain syndrome Mylagia and myositis, unspecified [facility] Diagnosis Myofascial pain syndrome- Primary Mylagia and myositis, unspecified Myofascial pain syndrome Mylagia and myositis, unspecified documented in this encounter [facility] note* Diagnosis Migraine without aura and with status migrainosus, not intractable- Primary Migraine without aura, without mention of intractable migraine with status migrainosus Chronic migraine without aura, intractable, without status migrainosus Myofascial pain syndrome Mylagia and myositis, unspecified documented in this encounter [facility] note* Diagnosis Chronic pain syndrome- Primary 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 Chronic migraine without aura, with intractable migraine, so stated, with status migrainosus intermediate frame tender (current) use of opiate analgesic Other chronic pain Darin-Danlos syndrome Marfan's syndrome POTS (postural orthostatic tachycardia syndrome) Tachycardia, unspecified Fibromyalgia Mylagia and myositis, unspecified Migraine variant Variants of migraine, not elsewhere classified, without mention of intractable migraine without mention of status migrainosus Myofascial pain syndrome Mylagia and myositis, unspecified Hzdschk-Ioaax-Ynzba disease Peroneal muscular atrophy Zshvjrd-Inrcy-Myosc syndrome Peroneal muscular atrophy Myofascial pain syndrome Mylagia and myositis, unspecified documented in this encounter [facility] note* Diagnosis Chronic pain syndrome documented in this encounter [facility] note* Diagnosis Chronic pain syndrome 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 Chronic migraine without aura, with intractable migraine, so stated, with status migrainosus Fibromyalgia Mylagia and myositis, unspecified Fibromyalgia Mylagia and myositis, unspecified documented in this encounter [facility] noteNo assessment information [facility]WH[facility] Work Phone: Evaluation note* Diagnosis Chronic pain syndrome Fibromyalgia Mylagia and myositis, unspecified documented in this encounter [facility] note* Diagnosis Migraine without status migrainosus, not intractable, unspecified migraine type- Primary Migraine without status migrainosus, not intractable, unspecified migraine type [facility] Diagnosis Fibromyalgia- Primary Mylagia and myositis, unspecified 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 Chronic migraine without aura, with intractable migraine, so stated, with status migrainosus 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 Chronic pain syndrome Myofascial pain syndrome Mylagia and myositis, unspecified Migraine without status migrainosus, not intractable, unspecified migraine type [facility] Diagnosis Chronic pain syndrome Migraine without status migrainosus, not intractable, unspecified migraine type [facility] Diagnosis Fibromyalgia- Primary Mylagia and myositis, unspecified 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 Chronic migraine without aura, with intractable migraine, so stated, with status migrainosus Darin-Danlos syndrome Ficddxm-Kvibw-Ehwry disease Peroneal muscular atrophy Migraine without status migrainosus, not intractable, unspecified migraine type [facility] Diagnosis Migraine, unspecified, without mention of intractable migraine without mention of status migrainosus- Primary Fibromyalgia Mylagia and myositis, unspecified Fibromyalgia Mylagia and myositis, unspecified [facility]* Diagnosis Fibromyalgia- Primary Mylagia and myositis, unspecified Fibromyalgia Mylagia and myositis, unspecified Fibromyalgia Mylagia and myositis, unspecified [facility]* Diagnosis Migraine without aura and with status migrainosus, not intractable- Primary Migraine without aura, without mention of intractable migraine with status migrainosus Fibromyalgia Mylagia and myositis, unspecified Fibromyalgia Mylagia and myositis, unspecified Fibromyalgia Mylagia and myositis, unspecified documented in this encounter [facility] note* Diagnosis Chronic pain syndrome Fibromyalgia Mylagia and myositis, unspecified Fibromyalgia Mylagia and myositis, unspecified [facility] Diagnosis Chronic pain syndrome- Primary Fibromyalgia Mylagia and myositis, unspecified Darin-Danlos syndrome Llgwvjx-Sedtb-Mslra disease Peroneal muscular atrophy intermediate frame tender (current) use of opiate analgesic Other chronic pain Fibromyalgia Mylagia and myositis, unspecified Fibromyalgia Mylagia and myositis, unspecified [facility] Diagnosis Myofascial pain syndrome- Primary Mylagia and myositis, unspecified Fibromyalgia Mylagia and myositis, unspecified Myofascial pain syndrome Mylagia and myositis, unspecified Myofascial pain syndrome Mylagia and myositis, unspecified [facility] Diagnosis Chronic pain syndrome Myofascial pain syndrome Mylagia and myositis, unspecified Myofascial pain syndrome Mylagia and myositis, unspecified [facility] Diagnosis Intractable chronic migraine without aura [...] and myositis, unspecified [facility] Diagnosis Chronic pain syndrome 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 Chronic migraine without aura, with intractable migraine, so stated, with status migrainosus Migraine, unspecified, without mention of intractable migraine without mention of status migrainosus Myofascial pain syndrome Mylagia and myositis, unspecified Myofascial pain syndrome Mylagia and myositis, unspecified [facility] Diagnosis 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- Primary Chronic migraine without aura, with intractable migraine, so stated, with status migrainosus Myofascial pain syndrome Mylagia and myositis, unspecified [facility] Diagnosis Myofascial pain syndrome- Primary Mylagia and myositis, unspecified Myofascial pain syndrome Mylagia and myositis, unspecified Myofascial pain syndrome Mylagia and myositis, unspecified [facility]* Diagnosis Fibromyalgia- Primary Mylagia and myositis, unspecified Darin-Danlos syndrome Uljrwxe-Drijp-Xxikv disease 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 Chronic migraine without aura, with intractable migraine, so stated, with status migrainosus intermediate frame tender (current) use of opiate analgesic Myofascial pain syndrome Mylagia and myositis, unspecified Myofascial pain syndrome Mylagia and myositis, unspecified [facility] Diagnosis Icptmgm-Uuoam-Fayus disease Peroneal muscular atrophy Myofascial pain syndrome Mylagia and myositis, unspecified Myofascial pain syndrome Mylagia and myositis, unspecified [facility] Diagnosis Migraine, unspecified, without mention of intractable migraine without mention of status migrainosus- Primary Myofascial pain syndrome Mylagia and myositis, unspecified Migraine, unspecified, without mention of intractable migraine without mention of status migrainosus [facility] Tpkowtf-Kzxgu-Ofauz disease Peroneal muscular atrophy Myofascial pain syndrome Mylagia and myositis, unspecified Migraine, unspecified, without mention of intractable migraine without mention of status migrainosus [facility]* Diagnosis Fibromyalgia- Primary Mylagia and myositis, unspecified Myofascial pain syndrome Mylagia and myositis, unspecified Migraine, unspecified, without mention of intractable migraine without mention of status migrainosus [facility] Diagnosis Ivuqxtl-Yxnvq-Snjxo disease Peroneal muscular atrophy Migraine, unspecified, without mention of intractable migraine without mention of status migrainosus [facility] Diagnosis Qshlqyt-Yhltk-Wuzpl disease- Primary Peroneal muscular atrophy Darin-Danlos syndrome Fibromyalgia Mylagia and myositis, unspecified Intractable [...] and myositis, unspecified [facility]* Diagnosis Azhkzlw-Tguup-Emosk disease Peroneal muscular atrophy [facility]* Diagnosis Myofascial pain syndrome- Primary Mylagia and myositis, unspecified Myofascial pain syndrome Mylagia and myositis, unspecified Myofascial pain syndrome Mylagia and myositis, unspecified [facility]* Diagnosis Zvphqmn-Ugjsn-Twpqf disease Peroneal muscular atrophy Migraine, unspecified, without mention of intractable migraine without mention of status migrainosus [facility] Diagnosis Darin-Danlos syndrome (HCC)- Primary Darin-Danlos syndrome Amfimur-Utjux-Ehwbu disease Peroneal muscular atrophy Marfan's syndrome (HCC) Marfan's syndrome Migraine, unspecified, without mention of intractable migraine without mention of status migrainosus Fibromyalgia Mylagia and myositis, unspecified Myofascial pain syndrome Mylagia and myositis, unspecified intermediate frame tender (current) use of opiate analgesic Migraine, unspecified, without mention of intractable migraine without mention of status migrainosus [facility] Diagnosis Myofascial pain syndrome- Primary Mylagia and myositis, unspecified Fibromyalgia Mylagia and myositis, unspecified Myofascial pain syndrome Mylagia and myositis, unspecified Fibromyalgia Mylagia and myositis, unspecified Myofascial pain syndrome Mylagia and myositis, unspecified [facility] Diagnosis Lvsogyq-Dkddo-Djhsw disease Peroneal muscular atrophy [facility]* Diagnosis Myofascial pain syndrome- Primary Mylagia [...] with status migrainosus [facility]* Diagnosis Sozncmn-Xvajx-Jcssk disease Peroneal muscular atrophy Myofascial pain syndrome Mylagia and myositis, unspecified Fibromyalgia Mylagia and myositis, unspecified Myofascial pain syndrome Mylagia and myositis, unspecified Fibromyalgia Mylagia and myositis, unspecified 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 Chronic migraine without aura, with intractable migraine, so stated, with status migrainosus [facility]* Diagnosis Epvnqpt-Junqr-Cpupc disease- Primary 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 Marfan's syndrome (HCC) Marfan's syndrome Myofascial pain syndrome Mylagia and myositis, unspecified Fibromyalgia Mylagia and myositis, unspecified Migraine, unspecified, without mention of intractable migraine without mention of status migrainosus [facility]* Diagnosis Dcwgxit-Rkixt-Vkqmf disease Peroneal muscular atrophy [facility] Diagnosis Myofascial pain syndrome- Primary Mylagia and myositis, unspecified [facility] ([facility])No reason for referral information availableWHolzer [facility] Work Phone: Reason for visit Narrative* Auth/Cert (Routine) Specialty Diagnoses / Procedures Referred By Contac t Referred To Contact Diagnoses Migraine, unspecified, without mention of intractable migraine without mention of status migrainosus Migraine, unspecified, without mention of intractable migraine without mention of status migrainosus [G43.909] Procedures CHEMODERVATE FACIAL/TRIGEM/CERV MUSC MIGRAINE CHEMODENERVATION OF MUSCLE(S) INNERVATED BY FACIAL, TRIGEMINAL, CERVICAL SPINAL AND ACCESSORY NERVES, BILATERAL PAIN KANG PROCEDURES [address] [place] [address] Phone: tel: fax: Referral ID Status Reason Start Date Expiration Date Visits Re quested Visits Authorized [id number] 1 1 [facility] Narrative* Auth/Cert (Routine) Specialty Diagnoses / Procedures Referred By Contac t Referred To Contact Diagnoses 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 [G43.711] Procedures CHEMODERVATE FACIAL/TRIGEM/CERV MUSC MIGRAINE CHEMODENERVATION OF MUSCLE(S) INNERVATED BY FACIAL, TRIGEMINAL, CERVICAL SPINAL AND ACCESSORY NERVES, BILATERAL PAIN KANG PROCEDURES [address] [place] [address] Phone: tel: fax: Referral ID Status Reason Start Date Expiration Date Visits Re quested Visits Authorized [id number] 1 1 [facility] Summary Purpose Family History No Family History Records FoundNo Family History Records FoundNo Family History Records FoundNo Family History Records FoundNo Family History Records Found Advance Directives No Advanced Directives Records FoundDocuments on File Type Date Recorded Patient 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 Advance Directive(s) 11/28/2021 2:32 PM Documents on File Type Date Recorded Patient 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 Advance Directive(s) 12/25/2021 2:26 PM Advance Directive(s) 11/28/2021 2:32 PM Advance Directive Response Recorded Date/ Time Living Will Yes July 31, 2 024 1:00pm Power of Bottom Liner Yes July 31, 2023 1:00pm Name of Medical Power of Bottom Liner MOTHER July 31, 2023 1:00pm Chief Complaint and Reason for Visit Chief Complaint Myringotomy,Tubes/ T - TUBES Additional Source Comments INFORMATION SOURCE (unrecogn ized section and content) DATE CREATED AUTHOR 10/24/2019 [facility] [place] DATE CREATED AUTHOR AUTHOR'S ORGANIZ ATION 02/24/2024 [facility] DATE CREATED AUTHOR AUTHOR'S ORGANIZ ATION 08/08/2024 [facility] DATE CREATED AUTHOR AUTHOR'S ORGANIZ ATION 04/20/2025 [facility] DATE CREATED AUTHOR AUTHOR'S ORGANIZ ATION 04/22/2025 [facility] Source Comments (unrecognize d section and content) In the event this informatio n is protected by the Federal Confidentiality of Alcohol and Drug Abuse Patient Records regulations: The Federal rules restrict any use of the information to criminally investigate or prosecute any alcohol or drug abuse patient.[facility] HospitalIn the event this information is protected by the Federal Confidentiality of Alcohol and Drug Abuse Patient Records regulations: The Federal rules restrict any use of the information to criminally investigate or prosecute any alcohol or drug abuse patient.[facility] HospitalIn the event this information is protected by the Federal Confidentiality of Alcohol and Drug Abuse Patient Records regulations: The Federal rules restrict any use of the information to criminally investigate or prosecute any alcohol or drug abuse patient.[facility] HospitalIn the event this information is protected by the Federal Confidentiality of Alcohol and Drug Abuse Patient Records regulations: The Federal rules restrict any use of the information to criminally investigate or prosecute any alcohol or drug abuse patient.[facility] HospitalIn the event this information is protected by the Federal Confidentiality of Alcohol and Drug Abuse Patient Records regulations: The Federal rules restrict any use of the information to criminally investigate or prosecute any alcohol or drug abuse patient.[facility] HospitalIn the event this information is protected by the Federal Confidentiality of Alcohol and Drug Abuse Patient Records regulations: The Federal rules restrict any use of the information to criminally investigate or prosecute any alcohol or drug abuse patient.[facility] HospitalIn the event this information is protected by the Federal Confidentiality of Alcohol and Drug Abuse Patient Records regulations: The Federal rules restrict any use of the information to criminally investigate or prosecute any alcohol or drug abuse patient.[facility] HospitalIn the event this information is protected by the Federal Confidentiality of Alcohol and Drug Abuse Patient Records regulations: The Federal rules restrict any use of the information to criminally investigate or prosecute any alcohol or drug abuse patient.[facility] HospitalIn the event this information is protected by the Federal Confidentiality of Alcohol and Drug Abuse Patient Records regulations: The Federal rules restrict any use of the information to criminally investigate or prosecute any alcohol or drug abuse patient.[facility] HospitalIn the event this information is protected by the Federal Confidentiality of Alcohol and Drug Abuse Patient Records regulations: The Federal rules restrict any use of the information to criminally investigate or prosecute any alcohol or drug abuse patient.[facility] HospitalIn the event this information is protected by the Federal Confidentiality of Alcohol and Drug Abuse Patient Records regulations: The Federal rules restrict any use of the information to criminally investigate or prosecute any alcohol or drug abuse patient.[facility] HospitalIn the event this information is protected by the Federal Confidentiality of Alcohol and Drug Abuse Patient Records regulations: The Federal rules restrict any use of the information to criminally investigate or prosecute any alcohol or drug abuse patient.[facility] HospitalIn the event this information is protected by the Federal Confidentiality of Alcohol and Drug Abuse Patient Records regulations: The Federal rules restrict any use of the information to criminally investigate or prosecute any alcohol or drug abuse patient.[facility] HospitalIn the event this information is protected by the Federal Confidentiality of Alcohol and Drug Abuse Patient Records regulations: The Federal rules restrict any use of the information to criminally investigate or prosecute any alcohol or drug abuse patient.[facility] HospitalIn the event this information is protected by the Federal Confidentiality of Alcohol and Drug Abuse Patient Records regulations: The Federal rules restrict any use of the information to criminally investigate or prosecute any alcohol or drug abuse patient.[facility] HospitalIn the event this information is protected by the Federal Confidentiality of Alcohol and Drug Abuse Patient Records regulations: The Federal rules restrict any use of the information to criminally investigate or prosecute any alcohol or drug abuse patient.[facility] HospitalIn the event this information is protected by the Federal Confidentiality of Alcohol and Drug Abuse Patient Records regulations: The Federal rules restrict any use of the information to criminally investigate or prosecute any alcohol or drug abuse patient.[facility] HospitalIn the event this information is protected by the Federal Confidentiality of Alcohol and Drug Abuse Patient Records regulations: The Federal rules restrict any use of the information to criminally investigate or prosecute any alcohol or drug abuse patient.[facility] HospitalIn the event this information is protected by the Federal Confidentiality of Alcohol and Drug Abuse Patient Records regulations: The Federal rules restrict any use of the information to criminally investigate or prosecute any alcohol or drug abuse patient.[facility] HospitalIn the event this information is protected by the Federal Confidentiality of Alcohol and Drug Abuse Patient Records regulations: The Federal rules restrict any use of the information to criminally investigate or prosecute any alcohol or drug abuse patient.[facility] HospitalIn the event this information is protected by the Federal Confidentiality of Alcohol and Drug Abuse Patient Records regulations: The Federal rules restrict any use of the information to criminally investigate or prosecute any alcohol or drug abuse patient.[facility] HospitalIn the event this information is protected by the Federal Confidentiality of Alcohol and Drug Abuse Patient Records regulations: The Federal rules restrict any use of the information to criminally investigate or prosecute any alcohol or drug abuse patient.[facility] HospitalIn the event this information is protected by the Federal Confidentiality of Alcohol and Drug Abuse Patient Records regulations: The Federal rules restrict any use of the information to criminally investigate or prosecute any alcohol or drug abuse patient.[facility] HospitalIn the event this information is protected by the Federal Confidentiality of Alcohol and Drug Abuse Patient Records regulations: The Federal rules restrict any use of the information to criminally investigate or prosecute any alcohol or drug abuse patient.[facility] HospitalIn the event this information is protected by the Federal Confidentiality of Alcohol and Drug Abuse Patient Records regulations: The Federal rules restrict any use of the information to criminally investigate or prosecute any alcohol or drug abuse patient.[facility] HospitalIn the event this information is protected by the Federal Confidentiality of Alcohol and Drug Abuse Patient Records regulations: The Federal rules restrict any use of the information to criminally investigate or prosecute any alcohol or drug abuse patient.[facility] HospitalIn the event this information is protected by the Federal Confidentiality of Alcohol and Drug Abuse Patient Records regulations: The Federal rules restrict any use of the information to criminally investigate or prosecute any alcohol or drug abuse patient.[facility] HospitalIn the event this information is protected by the Federal Confidentiality of Alcohol and Drug Abuse Patient Records regulations: The Federal rules restrict any use of the information to criminally investigate or prosecute any alcohol or drug abuse patient.[facility] HospitalIn the event this information is protected by the Federal Confidentiality of Alcohol and Drug Abuse Patient Records regulations: The Federal rules restrict any use of the information to criminally investigate or prosecute any alcohol or drug abuse patient.[facility] HospitalIn the event this information is protected by the Federal Confidentiality of Alcohol and Drug Abuse Patient Records regulations: The Federal rules restrict any use of the information to criminally investigate or prosecute any alcohol or drug abuse patient.[facility] HospitalIn the event this information is protected by the Federal Confidentiality of Alcohol and Drug Abuse Patient Records regulations: The Federal rules restrict any use of the information to criminally investigate or prosecute any alcohol or drug abuse patient.[facility] HospitalIn the event this information is protected by the Federal Confidentiality of Alcohol and Drug Abuse Patient Records regulations: The Federal rules restrict any use of the information to criminally investigate or prosecute any alcohol or drug abuse patient.[facility] HospitalIn the event this information is protected by the Federal Confidentiality of Alcohol and Drug Abuse Patient Records regulations: The Federal rules restrict any use of the information to criminally investigate or prosecute any alcohol or drug abuse patient.[facility] HospitalIn the event this information is protected by the Federal Confidentiality of Alcohol and Drug Abuse Patient Records regulations: The Federal rules restrict any use of the information to criminally investigate or prosecute any alcohol or drug abuse patient.[facility] HospitalIn the event this information is protected by the Federal Confidentiality of Alcohol and Drug Abuse Patient Records regulations: The Federal rules restrict any use of the information to criminally investigate or prosecute any alcohol or drug abuse patient.[facility] HospitalIn the event this information is protected by the Federal Confidentiality of Alcohol and Drug Abuse Patient Records regulations: The Federal rules restrict any use of the information to criminally investigate or prosecute any alcohol or drug abuse patient.[facility] HospitalIn the event this information is protected by the Federal Confidentiality of Alcohol and Drug Abuse Patient Records regulations: The Federal rules restrict any use of the information to criminally investigate or prosecute any alcohol or drug abuse patient.[facility] HospitalIn the event this information is protected by the Federal Confidentiality of Alcohol and Drug Abuse Patient Records regulations: The Federal rules restrict any use of the information to criminally investigate or prosecute any alcohol or drug abuse patient.[facility] HospitalIn the event this information is protected by the Federal Confidentiality of Alcohol and Drug Abuse Patient Records regulations: The Federal rules restrict any use of the information to criminally investigate or prosecute any alcohol or drug abuse patient.[facility] HospitalIn the event this information is protected by the Federal Confidentiality of Alcohol and Drug Abuse Patient Records regulations: The Federal rules restrict any use of the information to criminally investigate or prosecute any alcohol or drug abuse patient.[facility] HospitalIn the event this information is protected by the Federal Confidentiality of Alcohol and Drug Abuse Patient Records regulations: The Federal rules restrict any use of the information to criminally investigate or prosecute any alcohol or drug abuse patient.[facility] HospitalIn the event this information is protected by the Federal Confidentiality of Alcohol and Drug Abuse Patient Records regulations: The Federal rules restrict any use of the information to criminally investigate or prosecute any alcohol or drug abuse patient.[facility] HospitalIn the event this information is protected by the Federal Confidentiality of Alcohol and Drug Abuse Patient Records regulations: The Federal rules restrict any use of the information to criminally investigate or prosecute any alcohol or drug abuse patient.[facility] HospitalIn the event this information is protected by the Federal Confidentiality of Alcohol and Drug Abuse Patient Records regulations: The Federal rules restrict any use of the information to criminally investigate or prosecute any alcohol or drug abuse patient.[facility] HospitalIn the event this information is protected by the Federal Confidentiality of Alcohol and Drug Abuse Patient Records regulations: The Federal rules restrict any use of the information to criminally investigate or prosecute any alcohol or drug abuse patient.[facility] HospitalIn the event this information is protected by the Federal Confidentiality of Alcohol and Drug Abuse Patient Records regulations: The Federal rules restrict any use of the information to criminally investigate or prosecute any alcohol or drug abuse patient.[facility] HospitalIn the event this information is protected by the Federal Confidentiality of Alcohol and Drug Abuse Patient Records regulations: The Federal rules restrict any use of the information to criminally investigate or prosecute any alcohol or drug abuse patient.[facility] HospitalIn the event this information is protected by the Federal Confidentiality of Alcohol and Drug Abuse Patient Records regulations: The Federal rules restrict any use of the information to criminally investigate or prosecute any alcohol or drug abuse patient.[facility] HospitalIn the event this information is protected by the Federal Confidentiality of Alcohol and Drug Abuse Patient Records regulations: The Federal rules restrict any use of the information to criminally investigate or prosecute any alcohol or drug abuse patient.[facility] HospitalIn the event this information is protected by the Federal Confidentiality of Alcohol and Drug Abuse Patient Records regulations: The Federal rules restrict any use of the information to criminally investigate or prosecute any alcohol or drug abuse patient.[facility] HospitalIn the event this information is protected by the Federal Confidentiality of Alcohol and Drug Abuse Patient Records regulations: The Federal rules restrict any use of the information to criminally investigate or prosecute any alcohol or drug abuse patient.[facility] HospitalIn the event this information is protected by the Federal Confidentiality of Alcohol and Drug Abuse Patient Records regulations: The Federal rules restrict any use of the information to criminally investigate or prosecute any alcohol or drug abuse patient.[facility] HospitalIn the event this information is protected by the Federal Confidentiality of Alcohol and Drug Abuse Patient Records regulations: The Federal rules restrict any use of the information to criminally investigate or prosecute any alcohol or drug abuse patient.[facility] HospitalIn the event this information is protected by the Federal Confidentiality of Alcohol and Drug Abuse Patient Records regulations: The Federal rules restrict any use of the information to criminally investigate or prosecute any alcohol or drug abuse patient.[facility] HospitalIn the event this information is protected by the Federal Confidentiality of Alcohol and Drug Abuse Patient Records regulations: The Federal rules restrict any use of the information to criminally investigate or prosecute any alcohol or drug abuse patient.[facility] HospitalIn the event this information is protected by the Federal Confidentiality of Alcohol and Drug Abuse Patient Records regulations: The Federal rules restrict any use of the information to criminally investigate or prosecute any alcohol or drug abuse patient.[facility] HospitalIn the event this information is protected by the Federal Confidentiality of Alcohol and Drug Abuse Patient Records regulations: The Federal rules restrict any use of the information to criminally investigate or prosecute any alcohol or drug abuse patient.[facility] HospitalIn the event this information is protected by the Federal Confidentiality of Alcohol and Drug Abuse Patient Records regulations: The Federal rules restrict any use of the information to criminally investigate or prosecute any alcohol or drug abuse patient.[facility] HospitalIn the event this information is protected by the Federal Confidentiality of Alcohol and Drug Abuse Patient Records regulations: The Federal rules restrict any use of the information to criminally investigate or prosecute any alcohol or drug abuse patient.[facility] HospitalIn the event this information is protected by the Federal Confidentiality of Alcohol and Drug Abuse Patient Records regulations: The Federal rules restrict any use of the information to criminally investigate or prosecute any alcohol or drug abuse patient.[facility] HospitalIn the event this information is protected by the Federal Confidentiality of Alcohol and Drug Abuse Patient Records regulations: The Federal rules restrict any use of the information to criminally investigate or prosecute any alcohol or drug abuse patient.[facility] HospitalIn the event this information is protected by the Federal Confidentiality of Alcohol and Drug Abuse Patient Records regulations: The Federal rules restrict any use of the information to criminally investigate or prosecute any alcohol or drug abuse patient.[facility] HospitalIn the event this information is protected by the Federal Confidentiality of Alcohol and Drug Abuse Patient Records regulations: The Federal rules restrict any use of the information to criminally investigate or prosecute any alcohol or drug abuse patient.[facility] HospitalIn the event this information is protected by the Federal Confidentiality of Alcohol and Drug Abuse Patient Records regulations: The Federal rules restrict any use of the information to criminally investigate or prosecute any alcohol or drug abuse patient.[facility] HospitalIn the event this information is protected by the Federal Confidentiality of Alcohol and Drug Abuse Patient Records regulations: The Federal rules restrict any use of the information to criminally investigate or prosecute any alcohol or drug abuse patient.[facility] HospitalIn the event this information is protected by the Federal Confidentiality of Alcohol and Drug Abuse Patient Records regulations: The Federal rules restrict any use of the information to criminally investigate or prosecute any alcohol or drug abuse patient.[facility] HospitalIn the event this information is protected by the Federal Confidentiality of Alcohol and Drug Abuse Patient Records regulations: The Federal rules restrict any use of the information to criminally investigate or prosecute any alcohol or drug abuse patient.[facility] HospitalIn the event this information is protected by the Federal Confidentiality of Alcohol and Drug Abuse Patient Records regulations: The Federal rules restrict any use of the information to criminally investigate or prosecute any alcohol or drug abuse patient.[facility] HospitalIn the event this information is protected by the Federal Confidentiality of Alcohol and Drug Abuse Patient Records regulations: The Federal rules restrict any use of the information to criminally investigate or prosecute any alcohol or drug abuse patient.[facility] HospitalIn the event this information is protected by the Federal Confidentiality of Alcohol and Drug Abuse Patient Records regulations: The Federal rules restrict any use of the information to criminally investigate or prosecute any alcohol or drug abuse patient.[facility] HospitalIn the event this information is protected by the Federal Confidentiality of Alcohol and Drug Abuse Patient Records regulations: The Federal rules restrict any use of the information to criminally investigate or prosecute any alcohol or drug abuse patient.[facility] HospitalIn the event this information is protected by the Federal Confidentiality of Alcohol and Drug Abuse Patient Records regulations: The Federal rules restrict any use of the information to criminally investigate or prosecute any alcohol or drug abuse patient.[facility] HospitalIn the event this information is protected by the Federal Confidentiality of Alcohol and Drug Abuse Patient Records regulations: The Federal rules restrict any use of the information to criminally investigate or prosecute any alcohol or drug abuse patient.[facility] HospitalIn the event this information is protected by the Federal Confidentiality of Alcohol and Drug Abuse Patient Records regulations: The Federal rules restrict any use of the information to criminally investigate or prosecute any alcohol or drug abuse patient.[facility] HospitalIn the event this information is protected by the Federal Confidentiality of Alcohol and Drug Abuse Patient Records regulations: The Federal rules restrict any use of the information to criminally investigate or prosecute any alcohol or drug abuse patient.[facility] HospitalIn the event this information is protected by the Federal Confidentiality of Alcohol and Drug Abuse Patient Records regulations: The Federal rules restrict any use of the information to criminally investigate or prosecute any alcohol or drug abuse patient.[facility] HospitalIn the event this information is protected by the Federal Confidentiality of Alcohol and Drug Abuse Patient Records regulations: The Federal rules restrict any use of the information to criminally investigate or prosecute any alcohol or drug abuse patient.[facility] HospitalIn the event this information is protected by the Federal Confidentiality of Alcohol and Drug Abuse Patient Records regulations: The Federal rules restrict any use of the information to criminally investigate or prosecute any alcohol or drug abuse patient.[facility] HospitalIn the event this information is protected by the Federal Confidentiality of Alcohol and Drug Abuse Patient Records regulations: The Federal rules restrict any use of the information to criminally investigate or prosecute any alcohol or drug abuse patient.[facility] HospitalIn the event this information is protected by the Federal Confidentiality of Alcohol and Drug Abuse Patient Records regulations: The Federal rules restrict any use of the information to criminally investigate or prosecute any alcohol or drug abuse patient.[facility] HospitalIn the event this information is protected by the Federal Confidentiality of Alcohol and Drug Abuse Patient Records regulations: The Federal rules restrict any use of the information to criminally investigate or prosecute any alcohol or drug abuse patient.[facility] HospitalIn the event this information is protected by the Federal Confidentiality of Alcohol and Drug Abuse Patient Records regulations: The Federal rules restrict any use of the information to criminally investigate or prosecute any alcohol or drug abuse patient.[facility] HospitalIn the event this information is protected by the Federal Confidentiality of Alcohol and Drug Abuse Patient Records regulations: The Federal rules restrict any use of the information to criminally investigate or prosecute any alcohol or drug abuse patient.[facility] HospitalIn the event this information is protected by the Federal Confidentiality of Alcohol and Drug Abuse Patient Records regulations: The Federal rules restrict any use of the information to criminally investigate or prosecute any alcohol or drug abuse patient.[facility] HospitalIn the event this information is protected by the Federal Confidentiality of Alcohol and Drug Abuse Patient Records regulations: The Federal rules restrict any use of the information to criminally investigate or prosecute any alcohol or drug abuse patient.[facility] HospitalIn the event this information is protected by the Federal Confidentiality of Alcohol and Drug Abuse Patient Records regulations: The Federal rules restrict any use of the information to criminally investigate or prosecute any alcohol or drug abuse patient.[facility] HospitalIn the event this information is protected by the Federal Confidentiality of Alcohol and Drug Abuse Patient Records regulations: The Federal rules restrict any use of the information to criminally investigate or prosecute any alcohol or drug abuse patient.[facility] HospitalIn the event this information is protected by the Federal Confidentiality of Alcohol and Drug Abuse Patient Records regulations: The Federal rules restrict any use of the information to criminally investigate or prosecute any alcohol or drug abuse patient.[facility] HospitalIn the event this information is protected by the Federal Confidentiality of Alcohol and Drug Abuse Patient Records regulations: The Federal rules restrict any use of the information to criminally investigate or prosecute any alcohol or drug abuse patient.[facility] HospitalIn the event this information is protected by the Federal Confidentiality of Alcohol and Drug Abuse Patient Records regulations: The Federal rules restrict any use of the information to criminally investigate or prosecute any alcohol or drug abuse patient.[facility] HospitalIn the event this information is protected by the Federal Confidentiality of Alcohol and Drug Abuse Patient Records regulations: The Federal rules restrict any use of the information to criminally investigate or prosecute any alcohol or drug abuse patient.[facility] HospitalIn the event this information is protected by the Federal Confidentiality of Alcohol and Drug Abuse Patient Records regulations: The Federal rules restrict any use of the information to criminally investigate or prosecute any alcohol or drug abuse patient.[facility] HospitalIn the event this information is protected by the Federal Confidentiality of Alcohol and Drug Abuse Patient Records regulations: The Federal rules restrict any use of the information to criminally investigate or prosecute any alcohol or drug abuse patient.[facility] HospitalIn the event this information is protected by the Federal Confidentiality of Alcohol and Drug Abuse Patient Records regulations: The Federal rules restrict any use of the information to criminally investigate or prosecute any alcohol or drug abuse patient.[facility] HospitalIn the event this information is protected by the Federal Confidentiality of Alcohol and Drug Abuse Patient Records regulations: The Federal rules restrict any use of the information to criminally investigate or prosecute any alcohol or drug abuse patient.[facility] HospitalIn the event this information is protected by the Federal Confidentiality of Alcohol and Drug Abuse Patient Records regulations: The Federal rules restrict any use of the information to criminally investigate or prosecute any alcohol or drug abuse patient.[facility] HospitalIn the event this information is protected by the Federal Confidentiality of Alcohol and Drug Abuse Patient Records regulations: The Federal rules restrict any use of the information to criminally investigate or prosecute any alcohol or drug abuse patient.[facility] HospitalIn the event this information is protected by the Federal Confidentiality of Alcohol and Drug Abuse Patient Records regulations: The Federal rules restrict any use of the information to criminally investigate or prosecute any alcohol or drug abuse patient.[facility] HospitalIn the event this information is protected by the Federal Confidentiality of Alcohol and Drug Abuse Patient Records regulations: The Federal rules restrict any use of the information to criminally investigate or prosecute any alcohol or drug abuse patient.[facility] HospitalIn the event this information is protected by the Federal Confidentiality of Alcohol and Drug Abuse Patient Records regulations: The Federal rules restrict any use of the information to criminally investigate or prosecute any alcohol or drug abuse patient.[facility] HospitalIn the event this information is protected by the Federal Confidentiality of Alcohol and Drug Abuse Patient Records regulations: The Federal rules restrict any use of the information to criminally investigate or prosecute any alcohol or drug abuse patient.[facility] HospitalIn the event this information is protected by the Federal Confidentiality of Alcohol and Drug Abuse Patient Records regulations: The Federal rules restrict any use of the information to criminally investigate or prosecute any alcohol or drug abuse patient.[facility] HospitalIn the event this information is protected by the Federal Confidentiality of Alcohol and Drug Abuse Patient Records regulations: The Federal rules restrict any use of the information to criminally investigate or prosecute any alcohol or drug abuse patient.[facility] HospitalIn the event this information is protected by the Federal Confidentiality of Alcohol and Drug Abuse Patient Records regulations: The Federal rules restrict any use of the information to criminally investigate or prosecute any alcohol or drug abuse patient.[facility] HospitalIn the event this information is protected by the Federal Confidentiality of Alcohol and Drug Abuse Patient Records regulations: The Federal rules restrict any use of the information to criminally investigate or prosecute any alcohol or drug abuse patient.[facility] HospitalIn the event this information is protected by the Federal Confidentiality of Alcohol and Drug Abuse Patient Records regulations: The Federal rules restrict any use of the information to criminally investigate or prosecute any alcohol or drug abuse patient.[facility] HospitalIn the event this information is protected by the Federal Confidentiality of Alcohol and Drug Abuse Patient Records regulations: The Federal rules restrict any use of the information to criminally investigate or prosecute any alcohol or drug abuse patient.[facility] HospitalIn the event this information is protected by the Federal Confidentiality of Alcohol and Drug Abuse Patient Records regulations: The Federal rules restrict any use of the information to criminally investigate or prosecute any alcohol or drug abuse patient.[facility] HospitalIn the event this information is protected by the Federal Confidentiality of Alcohol and Drug Abuse Patient Records regulations: The Federal rules restrict any use of the information to criminally investigate or prosecute any alcohol or drug abuse patient.[facility] HospitalIn the event this information is protected by the Federal Confidentiality of Alcohol and Drug Abuse Patient Records regulations: The Federal rules restrict any use of the information to criminally investigate or prosecute any alcohol or drug abuse patient.[facility] HospitalIn the event this information is protected by the Federal Confidentiality of Alcohol and Drug Abuse Patient Records regulations: The Federal rules restrict any use of the information to criminally investigate or prosecute any alcohol or drug abuse patient.[facility] HospitalIn the event this information is protected by the Federal Confidentiality of Alcohol and Drug Abuse Patient Records regulations: The Federal rules restrict any use of the information to criminally investigate or prosecute any alcohol or drug abuse patient.[facility] HospitalIn the event this information is protected by the Federal Confidentiality of Alcohol and Drug Abuse Patient Records regulations: The Federal rules restrict any use of the information to criminally investigate or prosecute any alcohol or drug abuse patient.[facility] HospitalIn the event this information is protected by the Federal Confidentiality of Alcohol and Drug Abuse Patient Records regulations: The Federal rules restrict any use of the information to criminally investigate or prosecute any alcohol or drug abuse patient.[facility] HospitalIn the event this information is protected by the Federal Confidentiality of Alcohol and Drug Abuse Patient Records regulations: The Federal rules restrict any use of the information to criminally investigate or prosecute any alcohol or drug abuse patient.[facility] HospitalIn the event this information is protected by the Federal Confidentiality of Alcohol and Drug Abuse Patient Records regulations: The Federal rules restrict any use of the information to criminally investigate or prosecute any alcohol or drug abuse patient.[facility] HospitalIn the event this information is protected by the Federal Confidentiality of Alcohol and Drug Abuse Patient Records regulations: The Federal rules restrict any use of the information to criminally investigate or prosecute any alcohol or drug abuse patient.[facility] HospitalIn the event this information is protected by the Federal Confidentiality of Alcohol and Drug Abuse Patient Records regulations: The Federal rules restrict any use of the information to criminally investigate or prosecute any alcohol or drug abuse patient.[facility] HospitalIn the event this information is protected by the Federal Confidentiality of Alcohol and Drug Abuse Patient Records regulations: The Federal rules restrict any use of the information to criminally investigate or prosecute any alcohol or drug abuse patient.[facility] HospitalIn the event this information is protected by the Federal Confidentiality of Alcohol and Drug Abuse Patient Records regulations: The Federal rules restrict any use of the information to criminally investigate or prosecute any alcohol or drug abuse patient.[facility] HospitalIn the event this information is protected by the Federal Confidentiality of Alcohol and Drug Abuse Patient Records regulations: The Federal rules restrict any use of the information to criminally investigate or prosecute any alcohol or drug abuse patient.[facility] HospitalIn the event this information is protected by the Federal Confidentiality of Alcohol and Drug Abuse Patient Records regulations: The Federal rules restrict any use of the information to criminally investigate or prosecute any alcohol or drug abuse patient.[facility] Care Teams (unrecognized sec tion and content) Licensed Pesticide Applicator Relationship Specialty Start Date End Date Luisa Pemberton [address] [place] [address] PCP - General 06/29/02 Licensed Pesticide Applicator Relationship Specialty Start Date End Date Luisa Pemberton [address] [place] [address] PCP - General 06/29/02 Licensed Pesticide Applicator Relationship Specialty Start Date End Date Luisa Pemberton [address] [place] [address] PCP - General 06/29/02 Licensed Pesticide Applicator Relationship Specialty Start Date End Date Luisa Pemberton [address] [place] [address] PCP - General 06/29/02 Licensed Pesticide Applicator Relationship Specialty Start Date End Date Luisa Pemberton [address] [facility] [address] [place] [address] PCP - General 06/29/02 Licensed Pesticide Applicator Relationship Specialty Start Date End Date Luisa Pemberton [address] [facility] [address] [place] [address] PCP - General 06/29/02 Licensed Pesticide Applicator Relationship Specialty Start Date End Date Luisa Pemberton [address] [facility] [address] [place] [address] PCP - General 06/29/02 Licensed Pesticide Applicator Relationship Specialty Start Date End Date Luisa Pemberton [address] [place] [address] PCP - General 06/29/02 Licensed Pesticide Applicator Relationship Specialty Start Date End Date Luisa Pembertoner [address] [place] [address] PCP - General 06/29/02 Licensed Pesticide Applicator Relationship Specialty Start Date End Date Luisa Pemberton Hardeep [address] [place] [address] PCP - General 06/29/02 Licensed Pesticide Applicator Relationship Specialty Start Date End Date Luisa Pemberton Hardeep [address] [place] [address] PCP - General 06/29/02 Licensed Pesticide Applicator Relationship Specialty Start Date End Date Luisa Pemberton Hardeep [address] [place] [address] PCP - General 06/29/02 Licensed Pesticide Applicator Relationship Specialty Start Date End Date Luisa Pemberton Hardeep [address] [place] [address] PCP - General 06/29/02 Licensed Pesticide Applicator Relationship Specialty Start Date End Date Luisa Pemberton Hardeep [address] [place] [address] PCP - General 06/29/02 Licensed Pesticide Applicator Relationship Specialty Start Date End Date Luisa Pembertoner [address] [place] [address] PCP - General 06/29/02 Licensed Pesticide Applicator Relationship Specialty Start Date End Date Luisa Pemberton Hardeep [address] [place] [address] PCP - General 06/29/02 Licensed Pesticide Applicator Relationship Specialty Start Date End Date Luisa Pemberton Hardeep [address] [place] [address] PCP - General 06/29/02 Licensed Pesticide Applicator Relationship Specialty Start Date End Date Luisa Pemberton Hardeep [address] [place] [address] PCP - General 06/29/02 Licensed Pesticide Applicator Relationship Specialty Start Date End Date Luisa Pemberton [address] [place] [address] PCP - General 06/29/02 Licensed Pesticide Applicator Relationship Specialty Start Date End Date Luisa Pemberton [address] [facility] [address] [place] [address] PCP - General 06/29/02 Licensed Pesticide Applicator Relationship Specialty Start Date End Date [facility]isa Pemberton [address] [facility] [address] [place] [address] PCP - General 06/29/02 Licensed Pesticide Applicator Relationship Specialty Start Date End Date Luisa Pemberton [address] [facility] [address] [place] [address] PCP - General 06/29/02 Licensed Pesticide Applicator Relationship Specialty Start Date End Date Luisa Pemberton [address] [place] [address] PCP - General 06/29/02 Licensed Pesticide Applicator Relationship Specialty Start Date End Date Luisa Pemberton [address] [place] [address] PCP - General 06/29/02 Licensed Pesticide Applicator Relationship Specialty Start Date End Date Luisa Pemberton [address] [facility] [address] [place] [address] PCP - General 06/29/02 Licensed Pesticide Applicator Relationship Specialty Start Date End Date Luisa Pemberton [address] [facility] [address] [place] [address] PCP - General 06/29/02 Licensed Pesticide Applicator Relationship Specialty Start Date End Date Luisa Pemberton [address] [place] [address] PCP - General 06/29/02 Licensed Pesticide Applicator Relationship Specialty Start Date End Date Luisa Pemberton [address] [place] [address] PCP - General 06/29/02 Licensed Pesticide Applicator Relationship Specialty Start Date End Date Luisa Pemberton [address] [place] [address] PCP - General 06/29/02 Licensed Pesticide Applicator Relationship Specialty Start Date End Date Luisa Pemberton [address] [place] [address] PCP - General 06/29/02 Licensed Pesticide Applicator Relationship Specialty Start Date End Date Luisa Pemberton [address] [place] [address] PCP - General 06/29/02 Licensed Pesticide Applicator Relationship Specialty Start Date End Date Luisa Pemberton [address] [place] [address] PCP - General 06/29/02 Licensed Pesticide Applicator Relationship Specialty Start Date End Date Luisa Pemberton [address] [place] [address] PCP - General 06/29/02 Licensed Pesticide Applicator Relationship Specialty Start Date End Date Luisa Pemberton [address] [place] [address] PCP - General 06/29/02 Licensed Pesticide Applicator Relationship Specialty Start Date End Date Luisa Pemberton [address] [place] [address] PCP - General 06/29/02 Licensed Pesticide Applicator Relationship Specialty Start Date End Date Luisa Pemberton [address] [place] [address] PCP - General 06/29/02 Team Status: Active Member Role Status Dates Dr. Luisa Pemberton MD Family Provider Active Dr. Luisa Pemberton MD Primary Care Provider Active Team Status: Inactive Member Role Status Dates Dr. Luisa Pemberton MD Primary Care Provider Active Dr. Mohit Henley MD Attending Provider, Referring Pr ovider Active Licensed Pesticide Applicator Relationship Specialty Start Date End Date Luisa Pemberton [address] [place] [address] PCP - General 06/29/02 Licensed Pesticide Applicator Relationship Specialty Start Date End Date Luisa Pemberton [address] [place] [address] PCP - General 06/29/02 Licensed Pesticide Applicator Relationship Specialty Start Date End Date Luisa Pemberton [address] [place] [address] PCP - General 06/29/02 Licensed Pesticide Applicator Relationship Specialty Start Date End Date Luisa Pemberton [address] [place] [address] PCP - General 06/29/02 Licensed Pesticide Applicator Relationship Specialty Start Date End Date Luisa Pemberton [address] [place] [address] PCP - General 06/29/02 Licensed Pesticide Applicator Relationship Specialty Start Date End Date Luisa Pemberton [address] [place] [address] PCP - General 06/29/02 Licensed Pesticide Applicator Relationship Specialty Start Date End Date Luisa Pemberton [address] [place] [address] PCP - General 06/29/02 Licensed Pesticide Applicator Relationship Specialty Start Date End Date Luisa Pemberton [address] [place] [address] PCP - General 06/29/02 Licensed Pesticide Applicator Relationship Specialty Start Date End Date Luisa Pemberton [address] [place] [address] PCP - General 06/29/02 Licensed Pesticide Applicator Relationship Specialty Start Date End Date Luisa Pemberton [address] [place] [address] PCP - General 06/29/02 Licensed Pesticide Applicator Relationship Specialty Start Date End Date Luisa Pemberton [address] [place] [address] PCP - General 06/29/02 Licensed Pesticide Applicator Relationship Specialty Start Date End Date Luisa Pemberton [address] [place] [address] PCP - General 06/29/02 Licensed Pesticide Applicator Relationship Specialty Start Date End Date Luisa Pemberton [address] [place] [address] PCP - General 06/29/02 Licensed Pesticide Applicator Relationship Specialty Start Date End Date Luisa Pemberton [address] [place] [address] PCP - General 06/29/02 Licensed Pesticide Applicator Relationship Specialty Start Date End Date Luisa Pemberton [address] [place] [address] PCP - General 06/29/02 Licensed Pesticide Applicator Relationship Specialty Start Date End Date Luisa Pemberton [address] [place] [address] PCP - General 06/29/02 Licensed Pesticide Applicator Relationship Specialty Start Date End Date Luisa Pemberton [address] [place] [address] PCP - General 06/29/02 Licensed Pesticide Applicator Relationship Specialty Start Date End Date Luisa Pemberton [address] [place] [address] PCP - General 06/29/02 Licensed Pesticide Applicator Relationship Specialty Start Date End Date Luisa Pemberton [address] [place] [address] PCP - General 06/29/02 Licensed Pesticide Applicator Relationship Specialty Start Date End Date Luisa Pemberton [address] [facility] [address] [place] [address] PCP - General 06/29/02 Licensed Pesticide Applicator Relationship Specialty Start Date End Date Luisa Pemberton [address] [facility] [address] [place] [address] PCP - General 06/29/02 Licensed Pesticide Applicator Relationship Specialty Start Date End Date Luisa Pemberton [address] [facility] [address] [place] [address] PCP - General 06/29/02 Licensed Pesticide Applicator Relationship Specialty Start Date End Date Luisa Pemberton [address] [facility] [address] [place], [place] [address] PCP - General 06/29/02 Team Status: Active Member Role/Relationship Status Dates Dr. Luisa Pemberton MD Primary care physician Active Michele Galvan MD Primary care physician Active Team Status: Inactive Member Role/Relationship Status Dates Michele Galvan MD Primary care physician Active S tart: March 05, 2025 End: March 05, 2025 Michele Galvan MD Attending physician Active Star t: March 05, 2025 End: March 05, 2025 Michele Galvan MD Referring Provider Active Start : March 05, 2025 End: March 05, 2025 Reason for Visit (unrecogniz ed section and [...] NERVES, BILATERAL [facility] [address] [place] [address] Phone: tel: fax: Referral ID Status Reason Start Date Expiration Date Visits Re quested Visits Authorized [id number] 1 1 Reason Comments generalized pain Reason Comments UTI Reason Comments Orders Reason Comments Scheduling Procedure 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 Specialty Diagnoses / Procedures [facility] Referred To Contact Diagnoses Migraine variant 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 Migraine variant [G43.809] 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 [G43.711] Procedures CHEMODERVATE FACIAL/TRIGEM/CERV MUSC MIGRAINE CHEMODENERVATION OF MUSCLE(S) INNERVATED BY FACIAL, TRIGEMINAL, CERVICAL SPINAL AND ACCESSORY NERVES, BILATERAL [facility] [address] [facility] [place] [address] Referral ID Status Reason Start Date Expiration Date Visits Re quested Visits Authorized [id number] 1 1 Reason Comments Case Needed Orders Reason Comments Verified procedure on Feb 27 Reason Comments Botox Injection Reason Comments Other Virtual Visit Pre Ch hailey In Reason Comments Other Scheduled with Dr Matthew luevano Reason Onset Date Comments Refill Request 05/05/2023 Reason Onset Date Comments Refill Request 07/25/2023 Specialty Diagnoses / Procedures Referred By [facility] Referred To Contact Diagnoses 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 Procedures CHEMODERVATE FACIAL/TRIGEM/CERV MUSC MIGRAINE CHEMODENERVATION OF MUSCLE(S) INNERVATED BY FACIAL, TRIGEMINAL, CERVICAL SPINAL AND ACCESSORY NERVES, BILATERAL [facility] [address] [place] [address] Referral ID Status Reason Start Date Expiration Date Visits Re quested Visits Authorized [id number] 1 1 Reason Onset Date Comments Refill Request 09/02/2023 Reason Comments Pain Generalized pain Reason Onset Date Comments Refill Request 10/24/2023 Reason Comments November 11 procedure Opened In Error Reason Comments Procedure denied Reason Comments Headache Chrinic migraines Pain generalized Reason Comments Resubmission for botox approval Specialty Diagnoses / Procedures Referred By [facility] Referred To Contact Diagnoses Migraine, unspecified, without mention of intractable migraine without mention of status migrainosus Procedures CHEMODERVATE FACIAL/TRIGEM/CERV MUSC MIGRAINE CHEMODENERVATION OF MUSCLE(S) INNERVATED BY FACIAL, TRIGEMINAL, CERVICAL SPINAL AND ACCESSORY NERVES, BILATERAL [facility] [address] [place] [address] Referral ID Status Reason Start Date Expiration Date Visits Re quested Visits Authorized [id number] 1 1 Reason Onset Date Comments Refill [...] THREE OR MORE MUSCLES [facility] [address] [place] [id number] Referral ID Status Reason Start Date Expiration Date Visits Re quested Visits Authorized [id number] 1 1 Specialty Diagnoses / Procedures Referred By Jero t Referred To Contact Diagnoses 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 Migraine, unspecified, without mention of intractable migraine without mention of status migrainosus Procedures CHEMODNRVTJ MUSC MUSC INNERVATED FACIAL NRV UNIL CHEMODENERVATION OF MUSCLE (S), MUSCLE (S) INNERVATED BY FACIAL NERVE [facility] [address] [place] [id number] Referral ID Status Reason Start Date Expiration Date Visits Re quested Visits Authorized [id number] 1 1 Reason Comments Cases needed for TPI's in May Reason Comments Pain generalized Specialty Diagnoses / Procedures Referred By Jero t Referred To Contact Diagnoses 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 [G43.711] Procedures CHEMODNRVTJ MUSC MUSC INNERVATED FACIAL NRV UNIL CHEMODENERVATION OF MUSCLE (S), MUSCLE (S) INNERVATED BY FACIAL NERVE [facility] [address] [place] [id number] Referral ID Status Reason Start Date Expiration Date Visits Re quested Visits Authorized [id number] 1 1 Reason Onset Date Comments Refill [...] MUSCLE (S) INNERVATED BY FACIAL NERVE [facility] [address] [place] [address] Referral ID Status Reason Start Date Expiration Date Visits Re quested Visits Authorized [id number] 1 1 Specialty Diagnoses / Procedures Referred By Contac t Referred To Contact Diagnoses Myofascial pain syndrome Myofascial pain syndrome [M79.18] Procedures TRIGGER POINT INJECTION MULTI 3+ MUSCLE GRP INJECTION TRIGGER POINT THREE OR MORE MUSCLES [facility] [address] [place] [address] Referral ID Status Reason Start Date Expiration Date Visits Re quested Visits Authorized [id number] 1 1 Reason Onset Date Comments Refill [...] MPF) (CANCELED) X (OR/PROCEDURE) PRN, Starting on e 01/14/24 at 1544, Until Sat01/14/24 at 1551, Intraprocedure 1544 (Given - Provid er: Vini Mcdonald MD) PRN Medication Order 03/08/2024 03/09/2024 03/10/2024 bupivacaine (PF) 0.25 % (2.5 mg/mL) injection (SENSORCAINE MPF) (CANCELED) X (OR/PROCEDURE) PRN, Starting on Sat03/10/24 at 1526, Until Sat03/10/24 at 1539, Intraprocedure 1526 (Given - Provid [...] MPF) (CANCELED) X (OR/PROCEDURE) PRN, Starting on Sat05/12/24 at 1539, Until Sat05/12/24 at 1548, Intraprocedure 1539 (Given - Provid er: Vini Mcdonald MD) PRN Medication Order 05/17/2024 05/18/2024 05/19/2024 bupivacaine (PF) 0.25 % (2.5 mg/mL) injection (SENSORCAINE MPF) (CANCELED) X (OR/PROCEDURE) PRN, Starting on Sat05/19/24 at 1529, Until Sat05/19/24 at 1541, Intraprocedure 1529 (Given - Provid er: Vini Mcdonald MD) PRN Medication Order 07/05/2024 07/06/2024 07/07/2024 NaCl (PF) 0.9% injection (CANCELED) X (OR/PROCEDURE) PRN, Starting on Sat07/07/24 at 1609, Until Sat07/07/24 at 1619, Intraprocedure 1609 (Given - Provid er: Vini Mcdonald MD) onabotulinum toxin type A injection (BOTOX) (CANCELED) X (OR/PROCEDURE) PRN, Starting on Sat07/07/24 at 1609, Until Sat07/07/24 at 1619, Intraprocedure 1609 (Given - Provid er: Vini Mcdonald MD) PRN Medication Order 07/12/2024 07/13/2024 07/14/2024 bupivacaine (PF) 0.25 % (2.5 mg/mL) injection (SENSORCAINE MPF) (CANCELED) X (OR/PROCEDURE) PRN, Starting on Sat07/14/24 at 1510, Until Sat07/14/24 at 1513, Intraprocedure 1510 (Given - Provid er: Vini Mcdonald MD) PRN Medication Order 07/14/2024 07/15/2024 07/16/2024 bupivacaine (PF) 0.25 % (2.5 mg/mL) injection (SENSORCAINE MPF) (CANCELED) X (OR/PROCEDURE) PRN, Starting on Sat07/16/24 at 1519, Until May 07/16/24 at 1529, Intraprocedure 1519 (Given - Provid er: Vini Mcdonald MD) PRN Medication Order 09/06/2024 09/07/2024 09/08/2024 bupivacaine (PF) 0.25 % (2.5 mg/mL) injection (SENSORCAINE MPF) (CANCELED) X (OR/PROCEDURE) PRN, Starting on 09/08/24 at 1605, Until Sat09/08/24 at 1611, Intraprocedure 1605 (Given - Provid [...] (CANCELED) X (OR/PROCEDURE) PRN, Starting on e 10/06/24 at 1544, Until Tu10/06/24 at 1603, Intraprocedure 1544 (Given - Provid er: Vini Mcdonald MD) onabotulinum toxin type A injection (BOTOX) (CANCELED) X (OR/PROCEDURE) PRN, Starting on 10/06/24 at 1544, Until 10/06/24 at 1603, Intraprocedure 1544 (Given - Provid er: Vini Mcdonald MD) PRN Medication Order 11/01/2024 11/02/2024 11/03/2024 bupivacaine (PF) 0.25 % (2.5 mg/mL) injection (SENSORCAINE MPF) (CANCELED) X (OR/PROCEDURE) PRN, Starting on 11/03/24 at 1542, Until e 11/03/24 at 1548, Intraprocedure 1542 (Given - Provid [...] MPF) (CANCELED) X (OR/PROCEDURE) PRN, Starting on 12/29/24 at 1548, Until 12/29/24 at 1557, Intraprocedure 1548 (Given - Provid [...] injection (CANCELED) X (OR/PROCEDURE) PRN, Starting on 01/05/25 at 1513, Until 01/05/25 at 1523, Intraprocedure 151 (Given - Provid er: Vini Mcdonald MD) onabotulinum toxin type A injection (BOTOX) (CANCELED) X (OR/PROCEDURE) PRN, Starting on 01/05/25 at 1513, Until 01/05/25 at 1522, Intraprocedure 1513 (Given - Provid er: Vini Mcdonald MD) PRN Medication Order 02/21/2025 02/22/2025 02/23/2025 bupivacaine (PF) 0.25 % (2.5 mg/mL) injection (SENSORCAINE MPF) (CANCELED) X (OR/PROCEDURE) PRN, Starting on Sat02/23/25 at 1644, Until Sat02/23/25 at 1646, Intraprocedure 1644 (Given - Provid er: Vini Mcdonald MD) Goals (unrecognized section and content) Goals may be documented in a n alternate section FOR RECORDS PERTAINING TO PATIENTS WHO ARE [...] BE BASED ON THE PRIMARY CLINICAL RECORDS. [employer] provides no warranty or guarantee of the accuracy or completeness of information in this document.
[2025-04-26] MEDS: Lactated Ringers 1,000 ML 15 ML IV (07:03)
--- NOTE | 2025-04-26 07:17 | PRE.ANES_ITS ---
ASA Classification* ASA Classification ASA Classification: 3 Assessment & Plan Anesthesia* Anesthesia Assessment Anesthesia Assessment: Discussed sedation and/or anesthesia options, risks, benefits, and alternatives with patient/parents/legal guardian/POA. Questions invited. The patient/parents/legal guardian/POA seems to understand and agrees to proceed with anesthesia plan. Reviewed the physical assessment, medical history, allergy history and patient home medications list prior to surgery/procedure/anesthetic and documented any changes. Performed airway and anesthesia risk assessments. Anesthesia Type Anesthesia Type: MAC (MAC with backup GETA/LMA) History Source History Obtained from:: Patient and Chart Anesthesia Focused Assessment* Temperature: 98.3 F Pulse Rate: 106 Blood Pressure: 138/62 Respiratory Rate: 12 Pulse Ox: 100 Oxygen Delivery Method: Room Air Airway Assessment Mouth opens: >3 cm Mallampati Score: II Teeth Condition: Intact and Chipped/Broken (top left molar, top right molar) Neck Range of motion (ROM): Full ROM Labs Anesthesia Preop lab: CBC WBC, (4.4-11.0) 8.3 K/mm3 03/05/25, 16:32 RBC, (4.2-5.4) 4.43 M/mm3 03/05/25, 16:32 Hgb, (12.0-15.0) 13.1 g/dL 03/05/25, 16:32 Hct, (37-47) 40.3 % 03/05/25, 16:32 Plt Count, (150-450) 333 K/mm3 03/05/25, 16:32 CHEMISTRY Potassium, (3.3-5.1) 3.4 mmol/L 03/05/25, 16:32 Sodium, (133-145) 139 mmol/L 03/05/25, 16:32 BUN, (4-19) 9 mg/dL 03/05/25, 16:32 Creatinine, (0.70-1.20) 0.80 mg/dL 03/05/25, 16:32 Glucose, (70-99) 84 mg/dL 03/05/25, 16:32 TSH, (0.300-4.200) 1.560 uIU/mL 03/05/25, 16:32 COAG Pre-Assessment Diagnosis/Proposed Procedure Planned Operative Procedure(s): (B) Myringotomy,Tubes Anesthesia History Anesthesia History - midwife practitioner: Anesthesia History - midwife practitioner Hx Hospitalization No 04/19/25 08:22 Any Problems With Anesthesia Yes: PONV 04/19/25 08:22 Cholinesterase deficiency Yes: Succinylcholine 04/19/25 08:22 You/Your Family Experience No 04/19/25 08:22 fever (hyperthermia) with Relationship Recent Exposure to Contagious No 04/26/25 06:54 Disease Does patient have nerve No 04/19/25 08:22 stimulator Patient instructed to have device shut off --Does patient have Pacemaker No 04/26/25 06:54 or ICD? When Was Last Pacemaker Check QUESTION #4 FULL TEXT: You/Your Family Experience fever (hyperthermia) with Anesthesia Any additional information?: No Last Oral Intake Last Oral intake: Last Oral Intake NPO since 00:00 04/26/25 06:54 Meds taken in AM with sips of Yes 04/26/25 06:54 water? Meds patient instructed to take am of surgery Any additional information?: No PONV PONV - midwife practitioner: PONV - midwife practitioner Female Yes 04/19/25 08:22 HX of Motion Sickness Yes 04/19/25 08:22 HX of N/V After Surgery Yes 04/19/25 08:22 Non-Smoker Yes 04/19/25 08:22 Duration of Surgery greater No 04/19/25 08:22 than 60 minutes Number of Risk Factors 4 04/19/25 08:22 PONV Score Severe Risk 04/19/25 08:22 Any additional information?: No Height & Weight Height & Weight: Anesthesia: Height & Weight Height 5 ft 7 in 04/26/25 06:54 Weight: 52 kg 04/26/25 06:54 Body Mass Index (BMI) 17.9 04/26/25 06:54 Respiratory Assessment Respiratory Assessment - midwife practitioner: Respiratory Tract Infection Hx - midwife practitioner Hx Respiratory Tract Infection No 04/19/25 08:22 Any additional information?: No STOP Sleep Apnea STOP Sleep Apnea - midwife practitioner: STOP Sleep Apnea - midwife practitioner Hx Hypertension No 04/19/25 08:22 Hx Sleep Apnea No 04/19/25 08:22 CPAP BIPAP Do you snore loudly (louder No 04/19/25 08:22 than talking or can be heard Do you often feel tired/ No 04/19/25 08:22 fatigued/ sleepy during daytime? Has anyone observed you stop No 04/19/25 08:22 breathing during sleep? STOP Results Negative 04/19/25 08:22 QUESTION #5 FULL TEXT : Do you snore loudly (louder than talking or can be heard through closed doors)? Any additional information?: No Tobacco Use History Tobacco Use History - midwife practitioner: Tobacco Use History - midwife practitioner Tobacco Use Smoking Status Never smoker 04/19/25 08:22 Hx Tobacco Use No 04/19/25 08:22 Years Smoking Packs Smoked per Day Smoking Cessation Date was within the last 15 years Hx Smoking Cessation Date Hx Smoking Cessation Counseling Any additional information?: No Hematologic Medial History Hematologic Hx - midwife practitioner: Hematologic Medical Hx - director emergency Hx of Blood Transfusion No 04/19/25 08:22 Hx of Transfusion in last 3 No 04/19/25 08:22 Months Date of Last Transfusion (if within last 3 months) Ever experience any problems No 04/19/25 08:22 with transfusion(s)? Specify any problems Hx of Preganancy in last 3 No 04/19/25 08:22 Months Nurse Filling Out Transfusion MGRIFFITH 04/19/25 08:22 & Questions: Date: 04/19/25 04/19/25 08:22 Time: 08:26 04/19/25 08:22 Patient unable to answer at this time (ie. confused, unrespo Any additional information?: No /Reproduction History /Reproductive History - midwife practitioner: /Reproductive Hx- midwife practitioner Hx Now No 04/19/25 08:22 Gestational Age (in weeks): EDC: Hx Hx Para Hx Section SAB No 04/19/25 08:22 Does the father of the baby or his family experience fever w Father of the baby Malignant Hypertension history comment Any additional information?: No Active Medications Active Medications: Current Medications Generic Name Dose Route Start Last Admin Trade Name Freq PRN Reason Stop Dose Admin Lactated Ringer's 1,000 mls @ 15 mls/hr 04/26/25 06:45 04/26/25 07:03 IV 15 mls/hr .Q48H DANELLE Administration PFSH Medical History Urinary tract infection, site not specified Post-menopausal Muscular dystrophy PONV (postoperative nausea and vomiting) Syncope Difficulty chewing History of irregular heartbeat SVT (supraventricular tachycardia) Mast cell activation GERD (gastroesophageal reflux disease) Mitochondrial cytopathy Idiopathic gastroparesis COVID-19 Loss of hearing Uses wheelchair Arthritis Easy bruising Cyclic vomiting syndrome Marfan syndrome Mitochondrial myopathies Chiquis-Danlos syndrome Injury of back Migraine headache Loss of consciousness Difficulty swallowing Gastric reflux Non-smoker Shortness of breath on exertion Leg cramps History of pain when walking History of edema History of echocardiogram History of stress test Cardiology follow-up encounter POTS (postural orthostatic tachycardia syndrome) Chest pain Hx of muscular dystrophy Home Medications Medication Instructions Recorded Last Taken Type megestrol 400 mg/10 mL (40 mg/mL) 80 mg PO DAILY 07/3104/25/25 History oral suspension montelukast 10 mg tablet 10 mg PO QHS 07/31/23 History (Singulair) multivitamin (Daily Multi-Vitamin 1 tab PO DAILY 07/3104/25/25 History tablet) cetirizine 10 mg capsule (Zyrtec) 10 mg PO QDAY PRN al lergy symptoms 04/05/25 04/25/25 History ondansetron 8 mg disintegrating 8 mg PO TID PRN nausea and 04/08/25 04/26/25 Rx tablet vomiting #30 tabs oxycodone 20 mg/mL oral concentrate 10 mg PO Q4H 04/0804/26/25 History Allergy/AdvReac Type Severity Reaction Status Date / Time adhesive tape Allergy Intermediate Hives Verified 04/26/25 06:54 morphine Allergy Intermediate Hives Verified 04/26/25 06:54 perfume Allergy Intermediate Hives Verified 04/26/25 06:54 cat dander Allergy Unknown unknown Verified 04/26/25 06:54 cephalexin AdvReac Intermediate Other Verified 04/26/25 06:54 tetanus and diphtheria AdvReac Intermediate Swelling Verified 04/26/25 06:54 toxoids Family History Father Cancer Hypertension Mother Asudjni-Glqrh-Xljza disease BEE (obstructive sleep apnea) Afib Grandfather Hypertension Grandmother Breast cancer Sister EDS (Chiquis-Danlos syndrome) Surgical History History of cardiac catheterization History of myringotomy History of removal of retained hardware Hx of biopsy History of ankle surgery Hx of wisdom tooth extraction Hx of prior ablation treatment History of ankle surgery History of ankle surgery Hx of left knee surgery Hx of right knee surgery Hx of hammer toe correction Hx of hammer toe correction History of tonsillectomy and adenoidectomy Social History Smoking Status: Never smoker alcohol intake: never substance use type: does not use caffeine: No Review of Systems (Anesthesia) ROS Narrative System reviewed and no additional complaints, except as documented.
--- NOTE | 2025-04-26 07:31 | PRE.ANES_ITS ---
ASA Classification* ASA Classification ASA Classification: 3 Assessment & Plan Anesthesia* Anesthesia Assessment Anesthesia Assessment: Discussed sedation and/or anesthesia options, risks, benefits, and alternatives with patient/parents/legal guardian/POA. Questions invited. The patient/parents/legal guardian/POA seems to understand and agrees to proceed with anesthesia plan. Reviewed the physical assessment, medical history, allergy history and patient home medications list prior to surgery/procedure/anesthetic and documented any changes. Performed airway and anesthesia risk assessments. Anesthesia Type Anesthesia Type: MAC History Source History Obtained from:: Patient and Chart Anesthesia Focused Assessment* Temperature: 98.3 F Pulse Rate: 106 Blood Pressure: 138/62 Respiratory Rate: 12 Pulse Ox: 100 Oxygen Delivery Method: Room Air Airway Assessment Mouth opens: >3 cm Mallampati Score: III Teeth Condition: Chipped/Broken (Patient has couple chipped molars.) Neck Range of motion (ROM): Full ROM Labs Anesthesia Preop lab: CBC WBC, (4.4-11.0) 8.3 K/mm3 03/05/25, 16:32 RBC, (4.2-5.4) 4.43 M/mm3 03/05/25, 16:32 Hgb, (12.0-15.0) 13.1 g/dL 03/05/25, 16: Hct, (37-47) 40.3 % 03/05/25, 16:32 Plt Count, (150-450) 333 K/mm3 03/05/25, 16:32 CHEMISTRY Potassium, (3.3-5.1) 3.4 mmol/L 03/05/25, 16:32 Sodium, (133-145) 139 mmol/L 03/05/25, 16:32 BUN, (4-19) 9 mg/dL 03/05/25, 16:32 Creatinine, (0.70-1.20) 0.80 mg/dL 03/05/25, 16:32 Glucose, (70-99) 84 mg/dL 03/05/25, 16:32 TSH, (0.300-4.200) 1.560 uIU/mL 03/05/25, 16:32 COAG Pre-Assessment Diagnosis/Proposed Procedure Planned Operative Procedure(s): (B) Myringotomy, Tubes Anesthesia History 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 When Was Last Pacemaker Check QUESTION #4 FULL TEXT: You/Your Family Experience fever (hyperthermia) with Anesthesia Last Oral Intake Last Oral intake: Last Oral Intake NPO since 00:00 04/26/25 06:54 Meds taken in AM with sips of Yes 04/26/25 06:54 water? 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 disk quality control supervisor: PONV - type disk quality control supervisor Female Yes 04/19/25 08:22 HX of Motion Sickness Yes 04/19/25 08:22 HX of N/V After Surgery Yes 04/19/25 08:22 Non-Smoker Yes 04/19/25 08:22 Duration of Surgery greater No 04/19/25 08:22 than 60 minutes Number of Risk Factors 4 04/19/25 08:22 PONV Score Severe Risk 04/19/25 08:22 Height & Weight Height & Weight: Anesthesia: Height & Weight Height 5 ft 7 in 04/26/25 06:54 Weight: 52 kg 04/26/25 06:54 Body Mass Index (BMI) 17.9 04/26/25 06:54 Respiratory Assessment Respiratory Assessment - type disk quality control supervisor: Respiratory Tract Infection Hx - type disk quality control supervisor Hx Respiratory Tract Infection No 04/19/25 08:22 STOP Sleep Apnea STOP Sleep Apnea - type disk quality control supervisor: STOP Sleep Apnea - type disk quality control supervisor Hx Hypertension No 04/19/25 08:22 Hx Sleep Apnea No 04/19/25 08:22 CPAP BIPAP Do you snore loudly (louder No 04/19/25 08:22 than talking or can be heard Do you often feel tired/ No 04/19/25 08:22 fatigued/ sleepy during daytime? Has anyone observed you stop No 04/19/25 08:22 breathing during sleep? STOP Results Negative 04/19/25 08:22 QUESTION #5 FULL TEXT : Do you snore loudly (louder than talking or can be heard through closed doors)? 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 Specify any problems Hx of Preganancy in last 3 No 04/19/25 08:22 Months Nurse Filling Out Transfusion MGRIFFITH 04/19/25 08:22 & Questions: Date: 04/19/25 04/19/25 08:22 Time: 08:26 04/19/25 08:22 Patient unable to answer at this time (ie. confused, unrespo /Reproduction History /Reproductive History - type disk quality control supervisor: /Reproductive Hx- type disk quality control supervisor Hx Now No 04/19/25 08:22 Gestational Age (in weeks): EDC: Hx Hx Para Hx Section SAB No 04/19/25 08:22 Does the father of the baby or his family experience fever w Father of the baby Malignant Hypertension history comment Active Medications Active Medications: Current Medications Generic Name Dose Route Start Last Admin Trade Name Freq PRN Reason Stop Dose Admin Lactated Ringer's 1,000 mls @ 15 mls/hr 04/26/25 06:45 04/26/25 07:03 IV 15 mls/hr .Q48H DANELLE Administration PFSH Medical History Urinary tract infection, site not specified Post-menopausal Muscular dystrophy PONV (postoperative nausea and vomiting) Syncope Difficulty chewing History of irregular heartbeat SVT (supraventricular tachycardia) Mast cell activation GERD (gastroesophageal reflux disease) Mitochondrial cytopathy Idiopathic gastroparesis COVID-19 Loss of hearing Uses wheelchair Arthritis Easy bruising Cyclic vomiting syndrome Marfan syndrome Mitochondrial myopathies Chiquis-Danlos syndrome Injury of back Migraine headache Loss of consciousness Difficulty swallowing Gastric reflux Non-smoker Shortness of breath on exertion Leg cramps History of pain when walking History of edema History of echocardiogram History of stress test Cardiology follow-up encounter POTS (postural orthostatic tachycardia syndrome) Chest pain Hx of muscular dystrophy Home Medications Medication Instructions Recorded Last Taken Type megestrol 400 mg/10 mL (40 mg/mL) 80 mg PO DAILY 07/3104/25/25 History oral suspension montelukast 10 mg tablet 10 mg PO QHS 07/31/23 History (Singulair) multivitamin (Daily Multi-Vitamin 1 tab PO DAILY 07/3104/25/25 History tablet) cetirizine 10 mg capsule (Zyrtec) 10 mg PO QDAY PRN al lergy symptoms 04/05/25 04/25/25 History ondansetron 8 mg disintegrating 8 mg PO TID PRN nausea and 04/08/25 04/26/25 Rx tablet vomiting #30 tabs oxycodone 20 mg/mL oral concentrate 10 mg PO Q4H 04/0804/26/25 History Allergy/AdvReac Type Severity Reaction Status Date / Time adhesive tape Allergy Intermediate Hives Verified 04/26/25 06:54 morphine Allergy Intermediate Hives Verified 04/26/25 06:54 perfume Allergy Intermediate Hives Verified 04/26/25 06:54 cat dander Allergy Unknown unknown Verified 04/26/25 06:54 cephalexin AdvReac Intermediate Other Verified 04/26/25 06:54 tetanus and diphtheria AdvReac Intermediate Swelling Verified 04/26/25 06:54 toxoids Family History Father Cancer Hypertension Mother [id number] disease BEE (obstructive sleep apnea) Afib Grandfather Hypertension Grandmother Breast cancer Sister EDS (Chiquis-Danlos syndrome) Surgical History History of cardiac catheterization History of myringotomy History of removal of retained hardware Hx of biopsy History of ankle surgery Hx of wisdom tooth extraction Hx of prior ablation treatment History of ankle surgery History of ankle surgery Hx of left knee surgery Hx of right knee surgery Hx of hammer toe correction Hx of hammer toe correction History of tonsillectomy and adenoidectomy Social History Smoking Status: Never smoker alcohol intake: never substance use type: does not use caffeine: No Review of Systems (Anesthesia) ROS Narrative System reviewed and no additional complaints, except as documented.
--- NOTE | 2025-04-26 07:55 | DS.PCM_ITS ---
Providers Primary Care Physician: Michele Brown MD Reason For Visit: Myringotomy,Tubes Medications at Discharge Home Medications megestrol 400 mg/10 mL (40 mg/mL) oral suspension 80 mg PO DAILY 07/31/23 montelukast 10 mg tablet (Singulair) 10 mg PO QHS 07/31/23 multivitamin (Daily Multi-Vitamin tablet) 1 tab PO DAILY 07/31/23 cetirizine 10 mg capsule (Zyrtec) 10 mg PO QDAY PRN allergy symptoms 04/05/25 ondansetron 8 mg disintegrating tablet 8 mg PO TID PRN nausea and vomiting #30 tabs 04/08/25 oxycodone 20 mg/mL oral concentrate 10 mg PO Q4H 04/08/25 Weight / BMI Weight Weight: 52 kg Body Mass Index (BMI) 17.9 D/C Instructions Discharge Activity: Return to Normal Activity Additional Activity Instructions: Ear drops...5 drops each ear twice a day for 2 days (3 doses) DC O2, CPAP, BIPAP Needs Home O2 Discharge instructions: No Please Follow Up With: Mohit Henley MD When: 3 weeks Meaningful Use Info Meaningful Use Meaningful Use Diagnoses (Choose all that apply): None applicable Discharge Plan Admission Attending Provider: Mohit Henley Primary Care Provider: Michele Brown Instructions Print Language: Turkmen Discharge Orders/Prescriptions Prescriptions: No Action Zyrtec 10 mg capsule 10 mg PO QDAY PRN (Reason: allergy symptoms) ondansetron 8 mg tablet,disintegrating 8 mg PO TID PRN (Reason: nausea and vomiting) Qty: 30 3RF megestrol 400 mg/10 mL (40 mg/mL) suspension 80 mg PO DAILY Patient Comments: TAKE 2 MILLILITERS BY MOUTH TWICE A DAY montelukast [Singulair] 10 mg tablet 10 mg PO QHS Patient Comments: Take 1 tablet oral once a day multivitamin [Daily Multi-Vitamin] Tablet 1 tab PO DAILY oxycodone 20 mg/mL concentrate 10 mg PO Q4H Patient Comments: TAKE 0.5-1 ML BY MOUTH EVERY 4 HOURS Referrals / Follow Up: Michele Brown MD [Primary Care Provider, Family Practice] Disposition Disposition (needs filled in before D/C Order can be placed): Home, Self Care
--- NOTE | 2025-04-26 07:58 | OP.PCM_ITS ---
Operative Report (Standard) Operative Information Date of Procedure: 04/26/25 Pre-Operative Diagnosis: Eustachian tube dysfunction Post-Operative Diagnosis: same Surgery/Procedure Performed: Bilateral myringotomy with tubes. shot hole shooter: No Type of Anesthesia: General RN Documented Start/Stop Times: Operation Date: 04/26/25 08:00 Case Time Into Pre-Op 04/26/25 06:37 Out of Pre-Op 04/26/25 07:56 Procedure Start Time: 08:08 Procedure Stop Time: 08:12 Select all DRAINS/GRAFTS/IMPLANTS that apply: None Estimated Blood Loss: none Specimen collected: No Description of surgery: The patient was taken to the operating room on 04/26/25. The patient was placed in the supine position on the operating room table. The patient was given sufficient general anesthesia. The operating microscope was used throughout the entire case. A speculum was inserted into the patient's left ear. Cerumen was removed using a curette. The old tube was removed. A T-tube was placed through the myringotomy without difficulty. Antibiotic drops were instilled into the patient's ear. Next, a speculum was inserted into the patient's right ear. C erumen was removed using a curette. The old T-tube was removed. An incision was placed in the anterior inferior quadrant of the tympanic membrane. Old dessicated ciprodex drops were suctioned from the middle ear. A T- tube was placed without difficulty. Antibiotic drops were instilled into the patient's ear. The patient was then awoken. She was brought to the recovery room in stable condition. Blood loss minimal, replacement none. sponge, needle and instrument counts correct at the end of the procedure. Surgical Findings: non functional T tubes Complications Complications: No
[2025-04-26] MEDS: Midazolam 2 MG/2 ML Syringe IV (07:59)
[2025-04-26] MEDS: fentaNYL 100 MCG/2 ML Ampul IV (07:59)
--- NOTE | 2025-04-26 08:19 | PCM.POST.ANE ---
Anesthesia: Postop Eval I Current Vital Signs Temperature: 98.8 F Pulse Rate: 105 Blood Pressure: 145/100 Respiratory Rate: 20 Pulse Ox: 97 Assessment Airway patent: Yes Spontaneous unlabored respirations: Yes nausea: No Vomiting: No Anesthesia Complication: No Fluid Hydration Crystalloid volume administer (ml): 300 Total IV fluid infused: 300 Progress Note Anesthesia document: Postop Eval 1 completed: Yes
--- NOTE | 2025-04-26 16:34 | POSTOPAN2_ITS ---
Anesthesia Postop Eval I Sum Postop Eval Completion status Anesthesia document: Postop Eval 1 completed: Yes Anesthesia Postop Eval I Summary Anesthesia Postop Eval I Summary: Anesthesia Postop Eval I: Assessment Summary Airway patent Yes 04/26/25 08:22 ELECTRICAL [email or web address].[email or web address] Spontaneous unlabored Yes 04/26/25 08:22 ELECTRICAL DRAFTER.CSIR respirations Mental status nausea No 04/26/25 08:22 ELECTRICAL DRAFTER.CSIR Vomiting No 04/26/25 08:22 ELECTRICAL DRAFTER.CSIR Anesthesia Postop Eval I: Fluid Summary Crystalloid volume administer 300 04/26/25 08:22 ELECTRICAL DRAFTER.CSIR (ml) Colloids volume administered ( ml) Blood Product volume administered (ml) Total IV fluid infused 300 04/26/25 08:22 ELECTRICAL DRAFTER.CSIR Anesthesia Postop Eval I: Summary Notes Anesthesia Complication No 04/26/25 08:22 ELECTRICAL DRAFTER.CSIR Anesthesia Complication Comment: Post-operative progress note Anesthesia: Postop Eval II Evaluation Mental status: Awake and Calm Pain Level: 0 nausea: No Vomiting: No
--- NOTE | 2025-04-26 16:34 | PCM.POSTANE2 ---
Anesthesia Postop Eval I Sum Postop Eval Completion status Anesthesia document: Postop Eval 1 completed: Yes Anesthesia Postop Eval I Summary Anesthesia Postop Eval I Summary: Anesthesia Postop Eval I: Assessment Summary Airway patent Yes 04/26/25 08:22 HOME MISSION WORKER.CSIR Spontaneous unlabored Yes 04/26/25 08:22 HOME MISSION WORKER.CSIR respirations Mental status nausea No 04/26/25 08:22 HOME MISSION WORKER.CSIR Vomiting No 04/26/25 08:22 HOME MISSION WORKER.CSIR Anesthesia Postop Eval I: Fluid Summary Crystalloid volume administer 300 04/26/25 08:22 HOME MISSION WORKER.CSIR (ml) Colloids volume administered ( ml) Blood Product volume administered (ml) Total IV fluid infused 300 04/26/25 08:22 HOME MISSION WORKER.CSIR Anesthesia Postop Eval I: Summary Notes Anesthesia Complication No 04/26/25 08:22 HOME MISSION WORKER.CSIR Anesthesia Complication Comment: Post-operative progress note Anesthesia: Postop Eval II Evaluation Mental status: Awake and Calm Pain Level: 0 nausea: No Vomiting: No
== END 2025-04-26 08:59 | disposition home or self-care (01) ==
LOC: SDC 06:27 → AC 06:28
PROVIDERS: PCP Family Medicine; Referring Provider Otolaryngology; Visit Provider Otolaryngology
DX: H69.93 Unspecified Eustachian tube disorder, bilateral (principal)
CPT/HCPCS: 69436; 00126

== ENCOUNTER 2025-05-03 15:27 | Inpatient (IN) | payer MEDICARE, MEDICAID, SELFPAY ==
[2025-05-03 15:28] VITALS: BP 112/62; PULSE 139; RESP 18; TEMP 36.6; O2SAT 100
[2025-05-03] MEDS: 0.9% Normal Saline (1000mL) 1,000 ML 1000 ML IV (15:58)
[2025-05-03] MEDS: Famotidine 200 MG/20 ML MDV 20 MG in 0.9% Normal Saline (Pres. free 8 ML 300 MG IV (15:58)
[2025-05-03 15:59] VITALS: BMI 18.2
[2025-05-03 16:03] LABS: Hematocrit 45.4 % (37-47); Hemoglobin 14.4 g/dL (12.0-15.0); Immature Granulocytes Count 0.040 X10^3/uL (0.0-0.0); Mean Corp Hgb Conc 31.7 g/dL (32-36); Mean Corpuscular Volume 93.6 fL (81-99); Mean Platelet Vol. 9.9 fl (6.2-12.0); NRBC Flagged by Analyzer 0 % (0-5); Platelet Count 300 K/mm3 (150-450); RBC Distribution Width CV 12.4 % (11.6-14.6); RBC Distribution Width SD 42.9 fl (35.1-43.9); Red Blood Count 4.85 M/mm3 (4.2-5.4); White Blood Count 11.4 K/mm3 (4.4-11.0)
[2025-05-03 16:47] LABS: Anion Gap 25 (5-15); BUN 29 mg/dL (4-19); BUN/Creat Ratio 14.9 RATIO (10-20); Calcium,Total 9.6 mg/dL (7.6-11.0); Carbon Dioxide 15.0 mmol/L (21.0-32.0); Chloride 99 mmol/L (98-108); Estimated Creatinine Clearance 30.19 ml/min (50-250); Glucose 79 mg/dL (70-99); Potassium 4.3 mmol/L (3.3-5.1)
[2025-05-03 17:28] VITALS: BP 122/46; PULSE 105; O2SAT 100
--- NOTE | 2025-05-03 17:33 | EX.ED.DYSGE1 ---
HPI History of Present Illness Chief Complaint: Weakness Detail of Chief Complaint: Nausea vomiting, orthostatic lightheadedness, abdominal pain and HPI narrat Informant: patient Onset/Context/Timing Onset: Days Context: Sudden Onset Timing: Continuous and Waxes and wanes Quality: Abdominal discomfort with nausea and vomiting Location: Generalized Current Severity: Mild Maximum Severity: Severe Worsened by: Attempt to eat or drink anything Relieved by: Nothing Associated Symptoms Associated Symptoms: Intermittent hives and other symptoms due to mast cell D regulation Narrative Narrative: Patient is a 49-year-old woman. 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 Apparently this was triggered by the shell on the EKG pads and monitors. She had recent surgery. She develops hives. She has been taking [id number] antihistamines. She attempted take Pepcid today but was unsuccessful because of nausea and vomiting. She has had several episodes of nausea and vomiting today. She also some generalized abdominal pain. She states the mast cell activation syndrome also causes her to have angioedema of her abdomen. She has had no diarrhea. She denies black or maroon-colored stool. She denies mucus or blood in her stool. Patient does endorse thirst, dry mouth and orthostatic symptoms. Patient does endorse headache. Denies double vision blurred vision loss of vision. She denies trouble with her hearing. She has received alerts regarding fast heart rate. She denies chest pressure, tightness or heaviness. She has no history of VTE. She has no risk factors for VTE. She states her legs are normally discolored but there is no swelling or pain. Patient denies any ill contacts. She denies eating anything that may have tasted unusual to her. Review of allergies indicates she has no food allergies. Recent surgery for her Prior similar symptoms: Yes Recent Illness/Hospitalization: Yes [facility] Medical History Urinary tract infection, site not specified Post-menopausal Muscular dystrophy PONV (postoperative nausea and vomiting) Syncope Difficulty chewing History of irregular heartbeat SVT (supraventricular tachycardia) Mast cell activation GERD (gastroesophageal reflux disease) Mitochondrial cytopathy Idiopathic gastroparesis COVID-19 Loss of hearing Uses wheelchair Arthritis Easy bruising Cyclic vomiting syndrome Marfan syndrome Mitochondrial myopathies Chiquis-Danlos syndrome Injury of back Migraine headache Loss of consciousness Difficulty swallowing Gastric reflux Non-smoker Shortness of breath on exertion Leg cramps History of pain when walking History of edema History of echocardiogram History of stress test Cardiology follow-up encounter POTS (postural orthostatic tachycardia syndrome) Chest pain Hx of muscular dystrophy Home Medications ?Medication ?Instructions ?Recorded ?Last Taken ?Type megestrol 400 mg/10 mL (40 mg/mL) 80 mg PO DAILY 07/31/23 05/02/25 History oral suspension montelukast 10 mg tablet 10 mg PO QHS 07/31/23 05/02/25 History (Singulair) multivitamin (Daily Multi-Vitamin 1 tab PO DAILY 07/31/23 04/25/25 History tablet) cetirizine 10 mg capsule (Zyrtec) 10 mg PO QDAY PRN allergy symptoms 04/05/25 05/03/25 History oxycodone 20 mg/mL oral concentrate 10 mg PO Q4H 04/08/25 05/03/25 History clonidine HCl 0.1 mg tablet 0.1 mg PO BID 05/03/25 Unknown History ondansetron HCl 8 mg tablet 8 mg PO Q8H PRN PRN nausea/vomiting 05/03/25 05/03/25 History Allergy/AdvReac Type Severity Reaction Status Date / Time adhesive tape Allergy Intermediate Hives Verified 05/03/25 15:29 morphine Allergy Intermediate Hives Verified 05/03/25 15:29 perfume Allergy Intermediate Hives Verified 05/03/25 15:29 cat dander Allergy Unknown unknown Verified 05/03/25 15:29 cephalexin AdvReac Intermediate Other Verified 05/03/25 15:29 tetanus and diphtheria AdvReac Intermediate Swelling Verified 05/03/25 15:29 toxoids Family History Father Cancer Hypertension Mother Mbvxeyd-Cvagq-Gmotg disease BEE (obstructive sleep apnea) Afib Grandfather Hypertension Grandmother Breast cancer Sister EDS (Chiquis-Danlos syndrome) Surgical History History of cardiac catheterization History of myringotomy History of removal of retained hardware Hx of biopsy History of ankle surgery Hx of wisdom tooth extraction Hx of prior ablation treatment History of ankle surgery History of ankle surgery Hx of left knee surgery Hx of right knee surgery Hx of hammer toe correction Hx of hammer toe correction History of tonsillectomy and adenoidectomy Social History household members: none Smoking Status: Never smoker alcohol intake: never substance use type: does not use caffeine: No ROS ROS ED Constitutional Constitutional ED: Reports weight loss; Denies chills, fever(s), subjective or sweats Eyes Eyes: Denies blurry vision or change in vision ENT ENT ED: Denies ear pain, rhinorrhea or sore throat Cardiovascular Cardiovascular: Reports palpitations, racing heartbeat and other Details: Also complains of orthostatic lightheadedness. ; Denies chest pain or orthopnea Respiratory/Chest Respiratory/Chest: Denies cough, dyspnea, dyspnea on exertion or orthopnea Gastrointestinal Gastrointestinal: Reports abdominal pain, nausea and vomiting; Denies constipation or melena Genitourinary Genitourinary ED: Denies dysuria, hematuria or urinary frequency Musculoskeletal Musculoskeletal: Denies arthralgias, back pain, myalgias or neck pain Integumentary Denies abscess, Abrasions or rash Neurologic Neurologic: Reports weakness; Denies headache(s) or paresthesias Psychiatric Psychiatric: Denies anxiety Endocrine Endocrinology: Denies cold intolerance or heat intolerance Hematologic/Lymphatic Hematologic/Lymphatic: Reports systems reviewed and no addt'l complaints, except as documented EXAM Physical Exam Const Vital Signs: 05/03/25 15:28 05/03/25 15:30 05/03/25 17:28 Temperature 97.8 F Temperature Source Temporal Pulse Rate 139 H 105 H Respiratory Rate 18 Respiratory Effort Normal Respiratory Pattern Normal Blood Pressure 112/62 122/46 H Blood Pressure Mean 78 71 Pulse Ox 100 100 Oxygen Delivery Method Room Air Positive well nourished and well developed Constitutional Narrative: Patient appears il Vitals are remarkable for heart rate of 139. She is not febrile. General Appearance ED: well developed HEENT Reports dry mucous membranes HEENT Narrative: Head is atraumatic and normocephalic. Ears normal. Mucosas dry. Uvula is midline. Mouth ED: Yes dry mucous membranes Mouth: dry mucous membranes Eyes PERRL and EOMs intact bilaterally General Eye ED: Negative for pale conjunctiva or scleral icterus Neck No no lymphadenopathy, No supple and No no JVD Chest Wall inspection of chest normal and palpation of chest normal Resp normal respiratory effort and clear to auscultation bilaterally Cardio regular rhythm, S1 normal heart sound, S2 normal heart sound and no murmurs Rate: tachycardic GI normal to inspection, nondistended, normoactive bowel sounds and no masses; Negative for non-tender, non-distended or hepatosplenomegaly GI Narrative: There is slight tympany to percussion. Bowel sounds are diminished. She does have some periumbilical tenderness. There is no peritoneal findings or guarding. Abdomen is soft. Palpation: soft Back/Spine Back/Spine Narrative: emarkable Extremity Extremity Narrative: Inspection is unr. Elevation of her lower extremities, this is normal for her. Neuro oriented x3 and CN's II-XII intact bilaterally Sensorium / Orientation: alert Psych Mood & Affect: depressed Skin Skin Narrative: Skin is dry. There is slight pallor. MDM MDM MDM Narrative Medical decision making narrative: Clinically patient is dehydrated. 1 L of normal saline was ordered. CBC was obtained to assess H&H and she appears pale. BMP to assess renal function as well as CO2 anion gap. She was treated with antiemetic and H2 caleb. She reports only History & Record Review Additional record(s) reviewed:: Prior ED visit Lab Data Attestation: I reviewed the patient's lab results. Lab results narrative: White count is slightly elevated. There is a slight shift. H&H is normal. Basic metabolic panel is remarkable for a CO2 of 15 with an anion gap of 25. BUN and creatinine are elevated at 29 and 1.92. Estimated GFR is 30. Labs: Laboratory Results - last 24 hr 05/03/25 15:55 WBC 11.4 H RBC 4.85 Hgb 14.4 Hct 45.4 MCV 93.6 MCH 29.7 MCHC 31.7 L RDW Std Deviation 42.9 RDW Coeff of Myra 12.4 Plt Count 300 MPV 9.9 Immature Gran % (Auto) 0.400 Neut % (Auto) 77.2 H Lymph % (Auto) 14.0 L [place] % (Auto) 7.7 Eos % (Auto) 0.4 Baso % (Auto) 0.3 Absolute Neuts (auto) 8.8 H Absolute Lymphs (auto) 1.59 Nucleated RBC % 0 Sodium 139 Potassium 4.3 Chloride 99 Carbon Dioxide 15.0 L Anion Gap 25 H BUN 29 H Creatinine 1.92 H Estim Creat Clear Calc 30.19 L Est GFR (MDRD) Non-Af 32 L BUN/Creatinine Ratio 14.9 Glucose 79 Calcium 9.6 Management Discussion w/another healthcare provider: Hospitalist (Spoke with Dr. Mcwilliams. Patient is a full admit to [facility]. She will see patient in the ER.) Treatment and Re-Evaluation :: Since patient has increased anion gap increased BUN and creatinine and hemoglobin spike she has significant dehydration. Presume she is ketotic. Will obtain UA to assess for ketones. Second liter of normal saline was ordered with D5. This should help clear her presumed ketosis. In light of her acute kidney injury and inability to eat or drink anything hospitalist was paged for admission. Discharge Plan Dx/Rx/DC Orders Clinical Impression: ELOY (acute kidney injury), Acute dehydration, High anion gap metabolic acidosis, POTS (postural orthostatic tachycardia syndrome), Chiquis-Danlos syndrome, Mast cell activation syndrome Disposition Disposition: Acute Care Hospital [facility]
--- NOTE | 2025-05-03 17:56 | PCM.HP.STD ---
HPI - General General Date of Admission: 05/03/25 Date of Service: 05/03/25 Chief Complaint: Weakness, intractable N/V, abd discomfort. 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 Patient reports BL ear tube intervention 1 week prior. She also notes recent CT with evidence of stable nonobstructive kidney stone with no hydronephrosis with no recent increased flank discomfort or dysuria. She does have chronic pain and this is stable. She does report this presentation is similar to previous cyclic emesis syndrome episodes. Workup in the ED included T97.8, heart rate initially 139, BP 112/62, respiratory rate 18, under percent on room air with most recent repeat vitals heart rate 105, BP 122/46, respiratory rate 18, 100% on room air, CBC with WC 11.4, hemoglobin 14.4, platelets 300 with left shift, BMP CO2 15, anion gap 25, BUN/Cr29/1.29, GFR 32. In the ED patient administered dextrose IV fluid 1 L, famotidine 20 mg IV x 1, 1 L normal saline, Zofran 4 mg IV x 1. [facility] Medical History Urinary tract infection, site not specified Post-menopausal Muscular dystrophy PONV (postoperative nausea and vomiting) Syncope Difficulty chewing History of irregular heartbeat SVT (supraventricular tachycardia) Mast cell activation GERD (gastroesophageal reflux disease) Mitochondrial cytopathy Idiopathic gastroparesis COVID-19 Loss of hearing Uses wheelchair Arthritis Easy bruising Cyclic vomiting syndrome Marfan syndrome Mitochondrial myopathies Chiquis-Danlos syndrome Injury of back Migraine headache Loss of consciousness Difficulty swallowing Gastric reflux Non-smoker Shortness of breath on exertion Leg cramps History of pain when walking History of edema History of echocardiogram History of stress test Cardiology follow-up encounter POTS (postural orthostatic tachycardia syndrome) Chest pain Hx of muscular dystrophy Home Medications ?Medication ?Instructions ?Recorded ?Last Taken ?Type megestrol 400 mg/10 mL (40 mg/mL) 80 mg PO DAILY 07/31/23 05/02/25 History oral suspension montelukast 10 mg tablet 10 mg PO QHS 07/31/23 05/02/25 History (Singulair) multivitamin (Daily Multi-Vitamin 1 tab PO DAILY 07/31/23 04/25/25 History tablet) cetirizine 10 mg capsule (Zyrtec) 10 mg PO QDAY PRN allergy symptoms 04/05/25 05/03/25 History oxycodone 20 mg/mL oral concentrate 10 mg PO Q4H 04/08/25 05/03/25 History clonidine HCl 0.1 mg tablet 0.1 mg PO BID 05/03/25 Unknown History ondansetron HCl 8 mg tablet 8 mg PO Q8H PRN PRN nausea/vomiting 05/03/25 05/03/25 History Allergy/AdvReac Type Severity Reaction Status Date / Time adhesive tape Allergy Intermediate Hives Verified 05/03/25 15:29 morphine Allergy Intermediate Hives Verified 05/03/25 15:29 perfume Allergy Intermediate Hives Verified 05/03/25 15:29 cat dander Allergy Unknown unknown Verified 05/03/25 15:29 cephalexin AdvReac Intermediate Other Verified 05/03/25 15:29 tetanus and diphtheria AdvReac Intermediate Swelling Verified 05/03/25 15:29 toxoids Family History Father Cancer Hypertension Mother Qnhslpa-Drnls-Kybhs disease BEE (obstructive sleep apnea) Afib Grandfather Hypertension Grandmother Breast cancer Sister EDS (Chiquis-Danlos syndrome) Surgical History History of cardiac catheterization History of myringotomy History of removal of retained hardware Hx of biopsy History of ankle surgery Hx of wisdom tooth extraction Hx of prior ablation treatment History of ankle surgery History of ankle surgery Hx of left knee surgery Hx of right knee surgery Hx of hammer toe correction Hx of hammer toe correction History of tonsillectomy and adenoidectomy Social History household members: none Smoking Status: Never smoker alcohol intake: never substance use type: does not use caffeine: No ROS ROS Narrative Admission Review of Systems: CONSTITUTIONAL: No weight loss, fever, chills, + weakness or fatigue. HEENT: + Lightheadedness, dizziness. Eyes: No visual loss, blurred vision, double vision or yellow sclerae. Ears, Nose, Throat: No hearing loss, sneezing, congestion, runny nose or sore throat. SKIN: No rash or itching, lesions, wounds except + occasional stage ecchymoses, abrasion, notable intermittent hives given history. CARDIOVASCULAR: No chest pain, chest pressure or chest discomfort, palpitations, edema, orthopnea, syncopal events. RESPIRATORY: No shortness of breath, cough or sputum, wheezing, hemoptysis. GASTROINTESTINAL: + anorexia, nausea, vomiting, generalized abdominal discomfort. No diarrhea, melena, BRBPR. GENITOURINARY: No dysuria, frequency, urgency or retention. NEUROLOGICAL:+ Lightheadedness, dizziness. No headache, syncope, paralysis, ataxia, numbness or tingling in the extremities, focal weakness, change in bowel or bladder control, seizure. MUSCULOSKELETAL: + muscle, back pain, joint pain or stiffness. HEMATOLOGIC: No anemia, bleeding or bruising. LYMPHATICS: No enlarged nodes. No history of splenectomy. PSYCHIATRIC: No history of depression or anxiety. ENDOCRINOLOGIC: No reports of sweating, cold or heat intolerance. No polyuria or polydipsia. ALLERGIES: + History of hives, significant issues with mast cell dysregulation. Vital Signs Vital Signs Vital Signs: 05/03/25 15:28 05/03/25 15:30 05/03/25 17:28 Temperature 97.8 F Temperature Source Temporal Pulse Rate 139 H 105 H Respiratory Rate 18 Respiratory Effort Normal Respiratory Pattern Normal Blood Pressure 112/62 122/46 H Blood Pressure Mean 78 71 Pulse Ox 100 100 Oxygen Delivery Method Room Air Weight Weight: 116 lb 6.465 oz Body Mass Index (BMI) 18.2 Physical Exam Narrative Physical Examination: General: Awake, alert, oriented x 3 and cooperative, seated upright in the ED, fatigued and ill-appearing. Skin: Normal color, normal turgor, no icterus, no cyanosis except occasional stage ecchymoses, notable stasis skin changes, bruising to distal extremities. HEENT: AT/NC, EOMI, PERRLA, severely dry MM, no carotid bruits or JVD noted. Lungs: Diminished, greater bilateral bases, appropriate effort, no rales, ronchi or wheezing. Heart: Improved, regular rate and rhythm; no gallop, rub audible. Abdomen: Soft, thin habitus, NTTP, ND, hyperactive BS, no markedly appreciated HSM. Extremities: No cyanosis, no clubbing, bilateral ankle not markedly pitting suspected likely chronic edema, see skin. Neurological: Patient awake, alert, oriented as noted, cognitive function intact; pupils equally reactive to light and accommodation, cranial nerves grossly normal, moving all 4 extremities, no focal deficits, strength severely globally decreased. Psychiatric: Affect appears flat, fatigued, no acute evidence of depressive or anxiety feelings. Results Lab / Micro Data 05/03/25 15:55 05/03/25 15:55 Labs: Laboratory Results - last 24 hr 05/03/25 15:55: WBC 11.4 H, RBC 4.85, Hgb 14.4, Hct 45.4, MCV 93.6, MCH 29.7, MCHC 31.7 L, RDW Std Deviation 42.9, RDW Coeff of Myra 12.4, Plt Count 300, MPV 9.9, Immature Gran % (Auto) 0.400, Neut % (Auto) 77.2 H, Lymph % (Auto) 14.0 L, [place] % (Auto) 7.7, Eos % (Auto) 0.4, Baso % (Auto) 0.3, Absolute Neuts (auto) 8.8 H, Absolute Lymphs (auto) 1.59, Nucleated RBC % 0, Sodium 139, Potassium 4.3, Chloride 99, Carbon Dioxide 15.0 L, Anion Gap 25 H, BUN 29 H, Creatinine 1.92 H, Estim Creat Clear Calc 30.19 L, Est GFR (MDRD) Non-Af 32 L, BUN/Creatinine Ratio 14.9, Glucose 79, Calcium 9.6 Assessment & Plan Assessment/Plan (1) ELOY (acute kidney injury): PLAN: Plan The patient is a 49 y/o F w/ PMHx: Chronic allergic rhinitis, Muscular dystrophy/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 #1. Adult FTT secondary to Intractable nausea and emesis with with underlying history of cyclic emesis syndrome complicated by underlying GERD with idiopathic gastroparesis w/ metabolic derangement/acidosis, suspect ketosis: Complicated by #3 and #2 Wll admit to [facility], maintain on aggressive IVFs, until clinically improving will allow clears and advance diet as tolerated, in the interim maintain on IV PPI, IV/po pain control, will trend CBC, CMP, magnesium and phosphorus levels requested, will maintain on scheduled Haldol (oral attempt given inability to tolerate cardiac telemetry pads) given intractable nature of nausea and emesis, will have additional as needed antiemetic regimen, will have as needed pain regimen, maintain on fall and aspiration precautions, PT/OT/case management consulted for discharge planning. UA requested. #2. Acute kidney injury: Secondary to acute presentation, decreased intake, possibly medication. Admission BUN/Cr 29/1.92, GFR 32, prior baseline creatinine noted to be primarily 0.8-0.9. Will hydrate, hold nephrotoxic medications and repeat chemistry in AM. If no improvement would plan FeNa and renal ultrasound assessment. Urinalysis has been requested. #3. 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 #4. Chronic allergic rhinitis: Will continue patient home Zyrtec and montelukast regimen. #5. History SVT: Not on any rate or rhythm agent, suspect likely situational/electrolyte related but uncertain. #6. DVT prophylaxis: Heparin. Charges/Coding Visit Charges Inpatient E&M: 04387 Init Hosp L3
[2025-05-03] MEDS: Dextrose 5%/0.9% NaCl 1,000 ML 999 ML IV (18:02)
[2025-05-03 18:15] VITALS: BP 131/78; PULSE 67; RESP 18; TEMP 36.6; O2SAT 99
[2025-05-03 18:41] LABS: Magnesium 2.3 mg/dL (1.5-2.2)
[2025-05-03 18:51] VITALS: BMI 18.3
[2025-05-03 18:57] VITALS: BP 124/68; PULSE 99; RESP 16; TEMP 36.7; O2SAT 100
--- OUTSIDE RECORDS SUMMARY | 2025-05-03 19:14 | XMS RPT_ITS | CCD ---
Author Organization [facility] Care Team Providers Care Supervisor [place] Name Role Phone Erica Art Unavailable Unavailable Erica Art Unavailable Unavailable Sarah, May Unavailable Unavailable Sarah, May Unavailable Unavailable Luisa Pemberton Primary Care Provider Luisa Pemberton Primary Care Provider Luisa Pemberton Primary Care Provider Luisa Pemberton Primary Care Provider [phone] Luisa Pemberton Primary Care Provider Luisa Pemberton Primary Care Provider Cole SAMANIEGO, Michele Primary Care Physician Cole SAMANIEGO, Michele Attending Physician Cole SAMANIEGO, Michele Referring Provider Kamaljit Harding Attending Unavailable Cole, Chalon Referring Unavailable Cole, Chalon Primary Care Unavailable Cole, Michele Attending Unavailable Cole, Tomason Referring Unavailable Cole, Chalon Primary Care Unavailable Kamaljit Harding Attending Unavailable Kamaljit Harding Referring Unavailable Cole, Chalon Primary Care Unavailable Cole, Chalon Primary Care Unavailable LoryMohit inman Attending Unavailable Ilir Henleyin Referring Unavailable Cole, Tomason Attending Unavailable Cole, Chalon Referring Unavailable Cole, Chalon Primary Care Unavailable Nolt, Mayuri Attending Unavailable Cole, Chalon Primary Care Unavailable Marbella Hakan Attending Unavailable Cole, Chalon Primary Care [...] HARDEEP Primary Care Unavailable VOLCHKOVINI Admitting Unavailable VOLCHKOVNII Attending Unavailable JOLLIFF, LUISA HARDEEP Primary Care [...] (antibiotic) (1 source) Cephalexin Drug Allergy 1 [facility] Opioid Agonists (1 source) Morphine Drug Allergy 3 [facility] (20 sources) Cephalexin; Translations: [cephalexin] Drug Allergy 1 Unknown [facility] Work Phone: Comment on above: PATIENT HAS MUSCULAR DYSTROPY (20 sources) Morphine; Translations: [morphine] Drug Allergy 3 [facility] Work Phone: (20 sources) PERFUMES; Translations: [PERFUMES] drug allergy 3 [facility] Work Phone: (4 sources) ADHESIVE BANDAGES; Translations: [ADHESIVE BANDAGES] allergy to substance 3 [facility] Work Phone: (20 sources) Adhesive agent; Translations: [ADHESIVE] Propensity to adverse reactions 3 [facility] (20 sources) Fragrances; Translations: [FRAGRANCES] Allergy to substance 3 Rash, [facility] (3 sources) Adhesive Tape; Translations: [adhesive tape] Allergy to substance 4 [facility] (20 sources) perfume; Translations: [perfume] Allergy to substance 4 [facility] (1 source) tetanus and diphtheria toxoids Drug allergy (disorder) 5 [facility] (1 source) cat dander Drug allergy (disorder) 5 [facility] Medications Current Medications Medication Drug Class(es) [...] to 3 tablets per day ONDANSETRON HCL [id number] Nita Braun Comment on above: ondansetron HCl 8 mg tablet TAKE 1 TABLET BY MOUTH THREE TIMES A DAY oxyCODONE hydrochloride 20 mg/ml oral solution (20 sources) Opioid Agonist Start: 01-05-2025 End: 03-07-2025 oxyCODONE concentrate (ROXICODONE) 20 mg/mL concentrated solution Indications: Tsmxnhz-Xyhct-Dknbd disease Take 0.5-1 mL by mouth every 6 hours as needed for pain for up to 30 days. Continue working on decreasing your dose by 0.5 mL at a time as tolerated. 120 mL 02/05/2025 03/07/2025 Active Start: 12-21-2024 End: 01-20-2025 oxyCODONE concentrate (ROXIC ODONE) 20 mg/mL concentrated solution Indications: Smmrejr-Sibon-Bljoz disease Take 0.5-1 mL by mouth every 4 hours as needed for pain for up to 30 days. Continue working on decreasing your dose by 0.5 mL at a time as tolerated. Patient should start on December 21, 2024. 150 mL 12/21/2024 01/05/2025 Discontinued Start: 10-11-2024 End: 12-19-2024 oxyCODONE concentrate (ROXIC ODONE) 20 mg/mL concentrated solution Indications: Llvtidn-Vkfzd-Dyemd disease Take 0.5-1 mL by mouth every 4 hours as needed for pain for up to 30 days. Continue working on decreasing your dose by 0.5 mL at a time as tolerated. 150 mL 11/19/2024 12/18/2024 Discontinued Start: 08-13-2024 End: 10-06-2024 oxyCODONE concentrate (ROXIC ODONE) 20 mg/mL concentrated solution Indications: Ucbmmsf-Jkdsl-Atjue disease Take 0.5-1 mL by mouth every 4 hours as needed for pain for up to 25 days. Continue working on decreasing your dose by 0.5 mL at a time as tolerated. 150 mL 09/11/2024 09/18/2024 Discontinued Start: 07-14-2024 End: 08-08-2024 oxyCODONE concentrate (ROXIC ODONE) 20 mg/mL concentrated solution Indications: Fhibarj-Pnobr-Jtdpi disease Take 0.5-1 mL by mouth every 4 hours as needed for pain for up to 25 days. Patient should start on July 14, 2024. 150 mL 07/14/2024 08/08/2024 Active Start: 06-18-2024 End: 07-13-2024 oxyCODONE concentrate (ROXIC ODONE) 20 mg/mL concentrated solution Indications: Vsbgblx-Lizka-Txcox disease Take 0.5-1 mL by mouth every 4 hours as needed for pain for up to 25 days. Take 0.5-1mL every 4 hours as needed for pain for up to 25 days Patient should start on June 18, 2024. 150 mL 06/18/2024 06/23/2024 Discontinued Start: 05-19-2024 End: 06-16-2024 oxyCODONE concentrate (ROXIC ODONE) 20 mg/mL concentrated solution Indications: Ealdent-Jdwty-Jzuro disease Take 0.5-1 mL by mouth every 4 hours as needed for pain for up to 25 days. Take 0.5-1mL every 4 hours as needed for pain for up to 25 days Patient should start on May 19, 2024. 150 mL 05/19/2024 06/16/2024 Discontinued Start: 04-24-2024 End: 05-19-2024 oxyCODONE concentrate (ROXIC ODONE) 20 mg/mL concentrated solution Indications: Mivrkgr-Twvtr-Ixkru disease Take 0.5-1 mL by mouth every [...] concentrate (ROXICODONE) 20 mg/mL concentrated solution Indications: Bkydmdl-Eocbc-Phajw disease Take 0.5-1 mL by mouth every [...] every 4-6 hours as needed OXYCODONE HCL [id number] Levi Florez MD Comment on above: Take [...] MG/5ML SOLN 20 ml daily OXYCODONE-ACETAMINO PHEN [id number] Nita Braun Start: 11-06-2007 End: 08-14-2012 ROXICET 5-325 MG/5ML SOLN 20 ml daily OXYCODONE-ACETAMINOPHEN [id number] Nita Braun amcinonide 1 mg/ml topical cream [...] UNIT/ML SOLN Take as directed EPOETIN APOLONIA [id number] Nita Braun 1 ml erenumab-aooe 70 mg/ml [...] MCG/ACT SUSP Take as directed FLUTICASONE PROPIONATE [id number] Levi Florez MD End: 12-08-2021 take 1 spray(s) nasal route once daily fluticasone (FLONASE) 50 mcg/actuation nasal spray Use 1 [place] in each nostril once daily. 0 12/08/2021 Discontinued (Course of therapy completed) Comment on above: Use 1 [place] in each nostril once daily. HYDROmorphone hydrochloride 4 mg oral tablet (8 sources) Opioid Agonist Start: 04-03-20 10 End: 06-29-19 12 DILAUDID 4 MG TABS as needed HYDROMORPHONE HCL [id number] Nita Braun ivabradine 5 mg oral tablet [...] once daily METOPROLOL SUCCINATE ER 25 MG [id number] One tablet by mouth daily METOPROLOL SUCCINATE [id number] Nita Braun mirtazapine 15 mg oral tablet [...] CAPS One tablet by mouth daily PREGABALIN [id number] Nita Braun propranolol hydrochloride 10 mg oral tablet (8 sources) beta-Adrenergic Livan Start: 08-12-19 11 End: 06-29-19 12 PROPRANOLOL HCL 10 MG TABS (Inderal) 1 tablet 3-4 X a day as needed PROPRANOLOL HCL [id number] Nita Braun tretinoin 0.25 mg/ml topical cream [...] source) Hereditary motor and sensory neuropathy; 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] Onset: 06-19-2023 Chronic Other nutritional; endocrine; [...] current use of opiate analgesic drug; Translations: [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] Onset: 02-23-2022 Episodic Other aftercare (1 source) 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; Translations: [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] Onset: 04-19-2022 [...] OPERATIVE NOon 04-20-2025 OPERATIVE NO HNO ID: [id number] Author: VINI MCDONALD MD Service: Pain Management [...] in the office today: Trigger Point Injection(s): (16568) -Informed consent was obtained and all patient [...] 0.25% bupivacaine; distributed equally at each site. [facility] MR/Steve 04-19-2025 MR/SAULMikeMERY [facility] [address], [address] [place] [address] OFFICE VISIT Date of Service: 04/19/25 MR#: [id number] Acct: [id number] Name: CAPRI AGUILAR Rep #: [id number] : 1975 Provider: Dr. Viji Marcelino i, MD Age/Sex: 49/F [place] [facility] [place]: Signed Intake Vital Signs 04/08/25 13:16 04/19/25 15:27 Height 5 ft 7 in 5 ft 7 in Weight: 113 lb 113 lb BMI 17.6 17.6 BP 122/68 H 168/88 H Blood Pressure Location Lt brachial Position Sitting Respiration 16 Pulse 95 97 Pulse Source NIBP Temp 98.1 F Intake Visit Reasons: KIDNEY STONE Chief Complaint: 13mm kidney stone Lead Advisor Required: No Is patient in pain?: Yes [...] adenoidectomy Family History Father Cancer Hypertension Mother Hfwcacw-Gnije-Qhmfm disease BEE (obstructive sleep apnea) Afib Grandfather Hypertension Grandmother Breast cancer Sister EDS (Darin-Danlos syndrome) Social History Smoking Status: Never smoker alcohol intake: never substance use type: does not use caffeine: No HPI HPI Urology Chief Complaint: 13mm kidney stone Details: CAPRI AGUILAR, is a 49 F. 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 [...] No chil (more content not included)... Normal [facility] MR/PHILIPPJennifer 04-19-2025 MR/PAT.[facility] Medical Records Department [address] [place] [address] PAT - Anesthesia 04/19/25 0855 MR#: [id number] Acct: [id number] Name: CAPRI AGUILAR Rep #: [id number] : 1975 49 From: Kyle Barajas MD PCP: Dr. 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 Hx Hospitalization No 04/19/25 08:22 Any Problems [...] take am of surgery PONV PONV - convertible sofa bedspring tester: PONV - convertible sofa bedspring tester Female Yes 04/19/25 08:22 HX of Motion [...] 04/08/25 13:16 Respiratory Assessment Respiratory Assessment - convertible sofa bedspring tester: Respiratory Tract Infection Hx - convertible sofa bedspring tester Hx Respiratory Tract Infection No 04/19/25 08:22 STOP Sleep Apnea STOP Sleep Apnea - convertible sofa bedspring tester: STOP Sleep Apnea - convertible sofa bedspring tester Hx Hypertension No 04/19/25 08:22 Hx Sleep [...] Tobacco Use History Tobacco Use History - convertible sofa bedspring tester: Tobacco Use History - convertible sofa bedspring tester Tobacco Use Smoking Status Never smoker 04/19/25 08:22 Hx Tobacco Use No 04/19/25 08:22 Years Smoking Packs Smoked per Day Smoking Cessation Date was within the last 15 years Hx Smoking Cessation Date Hx Smoking Cessation Counseling Hematologic Medial History Hematologic Hx - convertible sofa bedspring tester: Hematologic Medical Hx - tile layer drainage Hx of Blood Transfusion No 04/19/25 08:22 Hx of Transfusion in last 3 No 04/19/25 08:22 Months Date of Last Transfusion (if within last 3 months) Ever experience any problems No 04/19/25 08:22 with transfusion(s)? Specify any problems Hx of Preganancy in last 3 No 04/19/25 08:22 Months Nurse Filling Out Transfusion MARITZAALETA 04/19/25 08:22 Questions: Date: 04/19/25 04/19/25 08:22 Time: :04/19/25 08:22 Patient unable to answer at this time (ie. confused, unrespo /Reproduct ion History /Reproduct ankur History - convertible sofa bedspring tester: /Reproduct ankur Hx- convertible sofa bedspring tester Hx Now No 04/19/25 08:22 Gestational Age (in weeks): EDC: Hx Hx Para Hx Section SAB No 04/19/25 08:22 Does the father of the baby or his family experience fever w Father of the baby Malignant Hypertension history comment [facility] Medical History (Updated 04/19/25 @ 08:37 by [...] POTS (p (more content not included)... Normal [facility] CTA Chst, Abd, Pel W and/or WOon 04-08-2025 CTA Chst, Abd, Pel W and/or WO [facility] Imaging Services [address] [place] [address] CTA Chst, Abd, Pel W and/or WO MR#: [id number] Acct: [id number] Name: CAPRI AGUILAR Cris Rep #: [id number] : 1975 F 49 From: Garrett Hernandez MD PCP: Dr. Michele Galvan MD Status: DEP CLI Study: CTA Chst, Abd, Pel W and/or WO Date of Exam: Exam# [id number] Ordering Dr: Kamaljit Harding DO ADDENDUM by [...] scoliosis and pectus excavatum noted. Reading Location: NON-XFPRHEH-FA 04/19/25 2355 Date cc: Dr. Michele Galvan [...] scoliosis and pectus excavatum noted. Reading Location: [facility] CC: Dr. Michele Galvan MD; Dr. Kamaljit Harding DO Mis Specialist: Signed Normal [facility] Cardiology Visit Reporton Cardiology Visit Report [facility] [place] [id number] [place] [address] OFFICE VISIT Date of Service: 04/08/25 MR#: [id number] Acct: [id number] Name: CAPRI AGUILAR Rep #: [id number] : 1975 Provider: Dr. Kamaljit higgins DO Age/Sex: 49/F Location: [facility] [place] Status: Signed HPI HPI History of Present Illness Details: Ms. Aguilar is a 49-year-old female with extensive documented past medical history, including Darin-Danlos, Marfan's syndrome, muscular dystrophy with a mitochondrial cytopathy, mitral valve disorder. Patient also has a history of POTS, hearing loss, idiopathic gastroparesis, cyclic vomiting syndrome. Patient last followed in July 2023 at the [facility], syncope and autonomic [...] this was also confirmed genetically at the [facility]. She has no acute complaints today. she has chronic pain over her body and has chronic nausea. Regarding her POTS, she manages this with diet and behavioral therapy. Her POTS symptoms are stable. She has had a long history of following both with EP in [place] as well as the [facility] for dysautonomia. She she admits she [...] Source NIBP Intake Visit Reasons: FELIPE (COLE) Lead Advisor Required: No Is patient in pain?: No [...] (Updated 04/09/25 @ 16:[address] Kamaljit Harding DO) SVT (supraventricular tachycardia) Mast cell activation GERD [...] tonsillectomy a (more content not included)... Normal [facility] Echo Completeon 04-08-2025 Echo [facility] [address] [place] [address] Echo Complete 04/08/25 1417 MR#: [id number] Acct: [id number] Name: CAPRI AGUILAR Rep #: [id number] : 1975 49 From: Hakan Tyson MD [...] Referring Physician: Michele Galvan Performed By: Sondra Moctezuma, JAYLEN, RVT 04/08/251808 Date Hakan Tyson MD CC: Dr. Michele Galvan MD; Dr. Kamaljit Harding DO Date Dictated: 04/08/25 1417 Date Transcribed: 04/08/251808 Mis Specialist: Signed [facility] OPERATIVE NOon 04-06-2025 OPERATIVE NO HNO ID: [id number] Author: VINI MCDONALD MD Service: Pain Management [...] Botox Injection PROCEDURE: Botox injection CPT code: 44890 PREPROCEDURE DIAGNOSIS: Migraine headache POSTPROCEDURE DIAGNOSIS: same [...] was prepped with alcohol. BOTOX Lot Number: [id number] BOTOX was reconstituted to a concentration of 5 U/0.1mL. The following injections were made using a 30G needle: 5 Botox units to the procerus muscle 5 Botox units to the right bulk plant supervisor supercilii muscle 5 Botox units to the left bulk plant supervisor supercilii muscle 30 Botox units to the [...] the procedure well with no complications noted. [facility] 03-19-2025 [facility] Office Visit (JENNIE) ---- CAPRI AGUILAR ([id number]) 1975 F Date Time Provider Department 03/19/25 [...] Acute gastritis without mention of hemorrhage CHARCOT Ogepctb-Uybsg-pkqqg disease, deafness, and intellectual disability syndrome (HCC) [...] weight change. (more content not included)... Normal [facility] Anion gap in Serum or Plasma Ordered By: Michele Galvan on 03-05-2025 Anion gap [Moles/Vol] 17 mmol/L High 5-15 [facility] BUN/creatinine ratioOrdered By: Michele Galvan on 03-05-2025 Urea nitrogen/Creatinine [Mass ratio] 11.6 mg/mg 10-20 [facility] Bilirubin, totalOrdered By: Michele Galvan on 03-05-2025 Bilirubin [Mass/Vol] 0.52 mg/dL 0.00-1.30 [facility] CBC-Complete Blood Cnt No Di ffon 03-05-2025 Erythrocyte distribution width (RBC) [Ratio] 12.9 % Normal 11.6-14.6 [facility] Comment on above: Performed By: #### L 500.4100, L506.1001, L500.4050, L100.0500, L501.9520 #### [facility] [address] [place], [address] Hematocrit (Bld) [Volume fraction] 40.3 % Normal 37-47 [facility] Comment on above: Performed By: #### L 500.4100, L506.1001, L500.4050, L100.0500, L501.9520 #### [facility] [address] [place], [address] Hemoglobin (Bld) [Mass/Vol] 13.1 g/dL Normal 12.0-15.0 [facility] Comment on above: Performed By: #### L 500.4100, L506.1001, L500.4050, L100.0500, L501.9520 #### [facility] [address] [place], [address] MCH (RBC) [Entitic mass] 29.6 pg Normal 27.0-32.0 [facility] Comment on above: Performed By: #### L 500.4100, L506.1001, L500.4050, L100.0500, L501.9520 #### [facility] [address] [place], [address] MCHC (RBC) [Mass/Vol] 32.5 g/dL Normal 32-36 [facility] Comment on above: Performed By: #### L 500.4100, L506.1001, L500.4050, L100.0500, L501.9520 #### [facility] [address] [place], [address] MCV (RBC) [Entitic vol] 91.0 fL Normal 81-99 [facility] Comment on above: Performed By: #### L 500.4100, L506.1001, L500.4050, L100.0500, L501.9520 #### [facility] [address] [place], [address] Platelet mean volume (Bld) [Entitic vol] 10.4 fL Normal 6.2-12.0 [facility] Comment on above: Performed By: #### L 500.4100, L506.1001, L500.4050, L100.0500, L501.9520 #### [facility] [address] [place], [address] Platelets (Bld) [#/Vol] 333 10*3/uL Normal 150-450 [facility] Comment on above: Performed By: #### L 500.4100, L506.1001, L500.4050, L100.0500, L501.9520 #### [facility] [address] [place], [address] RBC (Bld) [#/Vol] 4.43 10*6/uL Normal 4.2-5.4 [facility] Comment on above: Performed By: #### L 500.4100, L506.1001, L500.4050, L100.0500, L501.9520 #### [facility] [address] [place], [address] RDW SD 42.6 fl Normal 35.1-43.9 [facility] Comment on above: Performed By: #### L 500.4100, L506.1001, L500.4050, L100.0500, L501.9520 #### [facility] [address] [place], [address] WBC (Bld) [#/Vol] 8.3 10*3/uL Normal 4.4-11.0 [facility] Comment on above: Performed By: #### L 500.4100, L506.1001, L500.4050, L100.0500, L501.9520 #### [facility] [address] [place], [address] Calculated very low density lipoprotein (VLDL) cholesterol measurementOrdered By: Michele Galvan on 03-05-2025 Calculated very low density lipoprotein (VLDL) cholesterol measurement 14 mg/dL 5-40 [facility] Carbon dioxide, total [Moles /volume] in Central venous bloodOrdered By: Michele Galvan on 03-05-2025 CO2 [Moles/Vol] 19.0 mmol/L Low 21.0-32.0 [facility] Chloride assayOrdered By: Charly Galvan on 03-05-2025 Chloride [Moles/Vol] 104 mmol/L 98-108 [facility] Comprehensive Metabolic Prof ilon 03-05-2025 Albumin [Mass/Vol] 4.2 g/dL Normal 3.5-5.0 [facility] Comment on above: Order Comment: TSH Performed By: #### L 500.4100, L506.1001, L500.4050, L100.0500, L501.9520 #### [facility] [address] [place], [address] Albumin/Globulin [Mass ratio] 1.6 {ratio} Normal 0.9-2.4 [facility] Comment on above: Order Comment: TSH Performed By: #### L 500.4100, L506.1001, L500.4050, L100.0500, L501.9520 #### [facility] [address] [place], [address] ALK PHOS 54 U/L Normal 35-104 [facility] Comment on above: Order Comment: TSH Performed By: #### L 500.4100, L506.1001, L500.4050, L100.0500, L501.9520 #### [facility] [address] [place], [address] ALT [Catalytic activity/Vol] 15 U/L Normal <=34 [facility] Comment on above: Order Comment: TSH Performed By: #### L 500.4100, L506.1001, L500.4050, L100.0500, L501.9520 #### [facility] [address] [place], [address] AST [Catalytic activity/Vol] 21 U/L Normal <=31 [facility] Comment on above: Order Comment: TSH Performed By: #### L 500.4100, L506.1001, L500.4050, L100.0500, L501.9520 #### [facility] [address] [place], [address] Bilirubin [Mass/Vol] 0.52 mg/dL Normal 0.00-1.30 [facility] Comment on above: Order Comment: TSH Performed By: #### L 500.4100, L506.1001, L500.4050, L100.0500, L501.9520 #### [facility] [address] [place], [address] BUN/CRE 11.6 RATIO Normal 10-20 [facility] Comment on above: Order Comment: TSH Performed By: #### L 500.4100, L506.1001, L500.4050, L100.0500, L501.9520 #### [facility] [address] [place], [address] Calcium [Mass/Vol] 9.1 mg/dL Normal 7.6-11.0 [facility] Comment on above: Order Comment: TSH Performed By: #### L 500.4100, L506.1001, L500.4050, L100.0500, L501.9520 #### [facility] [address] [place], [address] Chloride [Moles/Vol] 104 mmol/L Normal 98-108 [facility] Comment on above: Order Comment: TSH Performed By: #### L 500.4100, L506.1001, L500.4050, L100.0500, L501.9520 #### [facility] [address] [place], [address] CO2 [Moles/Vol] 19.0 mmol/L Low 21.0-32.0 [facility] Comment on above: Order Comment: TSH Performed By: #### L 500.4100, L506.1001, L500.4050, L100.0500, L501.9520 #### [facility] [address] [place], [address] Creatinine [Mass/Vol] 0.80 mg/dL Normal 0.70-1.20 [facility] Comment on above: Order Comment: TSH Performed By: #### L 500.4100, L506.1001, L500.4050, L100.0500, L501.9520 #### [facility] [address] [place], [address] GAP 17 High 5-15 [facility] Comment on above: Order Comment: TSH Performed By: #### L 500.4100, L506.1001, L500.4050, L100.0500, L501.9520 #### [facility] [address] [place], [address] GFR/1.73 sq M.predicted among non-blacks MDRD (S/P/Bld) [Vol rate/Area] 92 mL/min/{1.73_m2} Normal >60 [facility] Comment on above: Order Comment: TSH Result Comment: mL/m in/1.73m2 CKD-EPI Creatinine Equation (2020) Performed By: #### L 500.4100, L506.1001, L500.4050, L100.0500, L501.9520 #### [facility] [address] [place], [address] Globulin (S) [Mass/Vol] 2.6 g/dL Normal 2.2-4.2 [facility] Comment on above: Order Comment: TSH Performed By: #### L 500.4100, L506.1001, L500.4050, L100.0500, L501.9520 #### [facility] [address] [place], [address] Glucose [Mass/Vol] 84 mg/dL Normal 70-99 [facility] Comment on above: Order Comment: TSH Performed By: #### L 500.4100, L506.1001, L500.4050, L100.0500, L501.9520 #### [facility] [address] [place], [address] Potassium [Moles/Vol] 3.4 mmol/L Normal 3.3-5.1 [facility] Comment on above: Order Comment: TSH Performed By: #### L 500.4100, L506.1001, L500.4050, L100.0500, L501.9520 #### [facility] [address] [place], [address] Sodium [Moles/Vol] 139 mmol/L Normal 133-145 [facility] Comment on above: Order Comment: TSH Performed By: #### L 500.4100, L506.1001, L500.4050, L100.0500, L501.9520 #### [facility] [address] [place], [address] T PROT 6.8 g/dL Normal 5.9-8.4 [facility] Comment on above: Order Comment: TSH Performed By: #### L 500.4100, L506.1001, L500.4050, L100.0500, L501.9520 #### [facility] [address] [place], [address] Urea nitrogen [Mass/Vol] 9 mg/dL Normal 4-19 [facility] Comment on above: Order Comment: TSH Performed By: #### L 500.4100, L506.1001, L500.4050, L100.0500, L501.9520 #### [facility] [address] [place], [address] Erythrocyte distribution wid th ratioOrdered By: Michele Galvan on 03-05-2025 Erythrocyte distribution width (RBC) [Ratio] 12.9 % 11.6-14.6 [facility] Erythrocyte distribution wid th standard deviationOrdered By: Michele Galvan on 03-05-2025 Erythrocyte distribution width (RBC) [Ratio] 42.6 fl 35.1-43.9 [facility] Glomerular filtration rate ( GFR) estimation/1.73 sq m using serum, plasma, or whole bOrdered By: Michele Galvan on 03-05-2025 GFR/1.73 sq M.predicted among non-blacks MDRD (S/P/Bld) [Vol rate/Area] 92 mL/min/{1.73_m2} >60 [facility] Comment on above: mL/min/1.73m2 CKD-EP I Creatinine Equation (2020) Hematocrit Auto (Bld) [Volum e fraction]Ordered By: Michele Galvan on 03-05-2025 Hematocrit (Bld) [Volume fraction] 40.3 % 37-47 [facility] Hemoglobin measurementOrdere d By: Michele Galvan on 03-05-2025 Hemoglobin (Bld) [Mass/Vol] 13.1 g/dL 12.0-15.0 [facility] LDL calc ser/plasOrdered By: Michele Galvan on 03-05-2025 Cholesterol in LDL [Mass/Vol] 111 mg/dL [facility] Comment on above: Nozmfbqlvn=298-361 m g/dL & Higher Dsti=390 mg/dL or greaterFriedwald Equation for LDL-C Laboratory - Chemistry and C hemistry - challengeOrdered By: Michele Galvan on 03-05-2025 AST [Catalytic activity/Vol] 21 U/L <32 [facility] Lipid Profileon 03-05-2025 CHOL:HDL 2.58 Normal [facility] Comment on above: Performed By: #### L 500.4100, L506.1001, L500.4050, L100.0500, L501.9520 #### [facility] [address] [place], [address] Cholesterol [Mass/Vol] 203 mg/dL High <=200 [facility] Comment on above: Result Comment: Chol esterol level, Desirable <200 mg/dL Borderline high cholesterol 200-239 mg/dL High cholesterol >=240 mg/dL Recommendations of the NCEP Adult Treatment Panel for the following risk-cutoff thresholds for the [place] population. Performed By: #### L 500.4100, L506.1001, L500.4050, L100.0500, L501.9520 #### [facility] [address] [place], [address] Cholesterol in HDL [Mass/Vol] 79 mg/dL Normal [facility] Comment on above: Result Comment: [place] onal Cholesterol Education Program (NCEP) guidelines: <40 mg/dL: Low HDL-cholesterol (major risk factor for CHD) >= 60 mg/dL: High HDL-cholesterol (negative risk factor for CHD) HDL-cholesterol is affected by a number of factors, e.g. smoking, exercise, hormones, sex and age. Performed By: #### L 500.4100, L506.1001, L500.4050, L100.0500, L501.9520 #### [facility] [address] [place], [address] Cholesterol in LDL [Mass/Vol] 111 mg/dL Normal [facility] Comment on above: Result Comment: Bord vscqui=293-944 mg/dL Higher Mpsr=930 mg/dL or greater Friedwald Equation for LDL-C Performed By: #### L 500.4100, L506.1001, L500.4050, L100.0500, L501.9520 #### [facility] [address] [place], [address] Cholesterol in VLDL [Mass/Vol] 14 mg/dL Normal 5-40 [facility] Comment on above: Performed By: #### L 500.4100, L506.1001, L500.4050, L100.0500, L501.9520 #### [facility] [address] [place], [address] Triglyceride [Mass/Vol] 68 mg/dL Normal [facility] Comment on above: Result Comment: The drugs N-Acetylcysteine and Metamizole may falsely depress this assay. Normal range: <150 mg/dL Borderline High: 150-199 mg/dL High: 200-499 mg/dL Very High: >500 mg/dL Performed By: #### L 500.4100, L506.1001, L500.4050, L100.0500, L501.9520 #### [facility] [address] [place], [place], [id number] MCV (mean corpuscular volume ) determinationOrdered By: Michele Galvan on 03-05-2025 MCV (RBC) [Entitic vol] 91.0 fL 81-99 [facility] Mean corpuscular hemoglobin (MCH) determinationOrdered By: Michele Galvan on 03-05-2025 MCH (RBC) [Entitic mass] 29.6 pg 27.0-32.0 [facility] Mean corpuscular hemoglobin concentration (MCHC) determinationOrdered By: Michele Galvan on 03-05-2025 MCHC (RBC) [Mass/Vol] 32.5 g/dL 32-36 [facility] Mean platelet volume determi nationOrdered By: Michele Galvan on 03-05-2025 Platelet mean volume (Bld) [Entitic vol] 10.4 fL 6.2-12.0 [facility] Platelet countOrdered By: Charly Galvan on 03-05-2025 Platelets (Bld) [#/Vol] 333 10*3/uL 150-450 [facility] Potassium measurement (mass/ volume)Ordered By: Michele Galvan on 03-05-2025 Potassium (Unsp spec) [Mass/Vol] 3.4 mmol/L 3.3-5.1 [facility] RBC Auto (Bld) [#/Vol]Ordere d By: Michele Galvan on 03-05-2025 RBC (Bld) [#/Vol] 4.43 10*6/uL 4.2-5.4 [facility] Screening total cholesterol/ high density lipoprotein (HDL) cholesterol ratioOrdered By: Michele Galvan on 03-05-2025 Cholesterol.total/Choles terol in HDL [Mass ratio] 2.58 {ratio} [facility] Serum creatinine measurement (mass/volume)Ordered By: Michele Galvan on 03-05-2025 Creatinine [Mass/Vol] 0.80 mg/dL 0.70-1.20 [facility] Serum globulin measurementOr dered By: Michele Galvan on 03-05-2025 Globulin (S) [Mass/Vol] 2.6 g/dL 2.2-4.2 [facility] Serum glucose measurement (m ass/volume)Ordered By: Michele Galvan on 03-05-2025 Glucose [Mass/Vol] 84 mg/dL 70-99 [facility] Serum or plasma alanine garcia otransferase (ALT) measurementOrdered By: Michele Galvan on 03-05-2025 ALT [Catalytic activity/Vol] 15 U/L <35 [facility] Serum or plasma albumin prashanth urement (mass/volume)Ordered By: Michele Galvan on 03-05-2025 Albumin [Mass/Vol] 4.2 g/dL 3.5-5.0 [facility] Serum or plasma albumin/glob ulin mass ratioOrdered By: Michele Galvan on 03-05-2025 Albumin/Globulin [Mass ratio] 1.6 {ratio} 0.9-2.4 [facility] Serum or plasma alkaline debbi sphatase measurementOrdered By: Michele Galvan on 03-05-2025 ALP [Catalytic activity/Vol] 54 U/L 35-104 [facility] Serum or plasma calcium prashanth urement (mass/volume)Ordered By: Michele Galvan on 03-05-2025 Calcium [Mass/Vol] 9.1 mg/dL 7.6-11.0 [facility] Serum or plasma cholesterol in HDL measurement (mass/volume)Ordered By: Michele Galvan on 03-05-2025 Cholesterol in HDL [Mass/Vol] 79 mg/dL >40 [facility] Comment on above: National Cholesterol Education Program (NCEP) guidelines:<40 mg/dL: Low HDL-cholesterol (major risk factor for CHD)>= 60 mg/dL: High HDL-cholesterol (negative risk factor for CHD)HDL-cholesterol is affected by a number of factors, e.g. smoking, exercise, hormones, sex and age. Serum or plasma cholesterol measurement (mass/volume)Ordered By: Michele Galvan on 03-05-2025 Cholesterol [Mass/Vol] 203 mg/dL High <201 [facility] Comment on above: Cholesterol level, D esirable <200 mg/dLBorderline high cholesterol 200-239 mg/dLHigh cholesterol >=240 mg/dLRecommendations of the NCEP Adult Treatment Panel for the following risk-cutoff thresholds for the [place] population. Serum or plasma urea nitroge n measurement (mass/volume)Ordered By: Michele Galvan on 03-05-2025 Urea nitrogen [Mass/Vol] 9 mg/dL 4-19 [facility] Sodium levelOrdered By: Tomas Galvan on 03-05-2025 Sodium [Moles/Vol] 139 mmol/L 133-145 [facility] TSH DL <= 0.005 mIU/L QnOrde red By: Michele Galvan on 03-05-2025 TSH Qn 1.560 uIU/mL 0.300-4.200 [facility] Thyroid Stim Hormone (TSH)on 03-05-2025 TSH 1.560 uIU/mL Normal 0.300-4.200 [facility] Comment on above: Performed By: #### L 500.4100, L506.1001, L500.4050, L100.0500, L501.9520 #### [facility] [address] [place], [address] Total proteinOrdered By: Ryanne Galvan on 03-05-2025 Protein [Mass/Vol] 6.8 g/dL 5.9-8.4 [facility] Triglycerides measurementOrd ered By: Michele Galvan on 03-05-2025 Triglyceride [Mass/Vol] 68 mg/dL <199 [facility] Comment on above: The drugs N-Acetylcy steine and Metamizole may falsely depress this assay. Normal range: <150 mg/dLBorderline High: 150-199 mg/dLHigh: 200-499 mg/dLVery High: >500 mg/dL Vitamin D,25 Hydroxyon 03-05 Vitamin D 25-OH 35.7 ng/mL Normal 30-100 [facility] Comment on above: Result Comment: Maggie min D Status Deficiency: <20 ng/mL (50nmol/L) Insufficiency: 20-30 ng/mL (50-75 nmol/L) Sufficiency: 30-100 ng/mL (75-250 nmol/L) Toxicity: >100 ng/mL (>250 nmol/L) Performed By: #### L 500.4100, L506.1001, L500.4050, L100.0500, L501.9520 #### [facility] [address] [place], [address] White blood cell (WBC) count Ordered By: Michele Galvan on 03-05-2025 WBC (Bld) [#/Vol] 8.3 10*3/uL 4.4-11.0 [facility] OPERATIVE NOon 02-25-2025 OPERATIVE NO HNO ID: [id number] Author: VINI MCDONALD MD Service: Pain Management [...] 0.25% bupivacaine; distributed ~equally at each site. [facility] NURSING PROGon 02-23-2025 NURSING PROG HNO ID: [id number] Author: GAIL CROOKS MA Service: ? Author Type: Business Database Analyst Type: Nursing Progress Note Filed: 02/23/2025 15:53 Note Text: TPI Injections Pt does not take any blood thinners Pt is not diabetic Pt is not on any antibiotics Pt did not take any sedation Gail Crooks MA February 23, 2025 3:53 PM [facility] OPERATIVE NOon 02-23-2025 OPERATIVE NO HNO ID: [id number] Author: VINI MCDONALD MD Service: Pain Management [...] in the office today: Trigger Point Injection(s): (69147) -Informed consent was obtained and all patient [...] 0.25% bupivacaine; distributed ~[facility]. [facility] (JENNIE[facility] ---- CAPRI AGUILAR ([id number]) 1975 F Date Time Provider Department 01/05/25 [...] Acute gastritis without mention of hemorrhage CHARCOT Eurxyeq-Zxhia-pnwmf disease, deafness, and intellectual disability syndrome (HCC) [...] Unknown) SpO2 99% (more content not included)... [facility] OPERATIVE NOon 01-05-2025 OPERATIVE NO HNO ID: [id number] Author: VINI MCDONALD MD Service: Pain Management [...] Botox Injection PROCEDURE: Botox injection CPT code: 60682 PREPROCEDURE DIAGNOSIS: Migraine headache POSTPROCEDURE DIAGNOSIS: same [...] was prepped with alcohol. BOTOX Lot Number: [id number] BOTOX was reconstituted to a concentration of 5 U/0.1mL. The following injections were made using a 30G needle: 5 Botox units to the procerus muscle 5 Botox units to the right bulk plant supervisor supercilii muscle 5 Botox units to the left bulk plant supervisor supercilii muscle 30 Botox units to the [...] the procedure well with no complications noted. [facility] OPERATIVE NOon 12-31-2024 OPERATIVE NO HNO ID: [id number] Author: VINI MCDONALD MD Service: Pain Management [...] 0.25% bupivacaine; distributed ~equally at each site. 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 [Z7*02/23/2022 Other chronic pain [G89.29] 05/07/2022 Encounter Status:Closed by SHARYN PAGE on 12/18/24 [facility] Derian 12-09-2024 VISHALN Telephone (BEST) ---- CAPRI AGUILAR ([id number]) 1975 F Date Time Provider Department 12/09/24 [...] migrainosus [G43.711] Order(s):SURGICAL REQUEST - ELECTIVE (01/2020) [[id number]] Order #: [id number]: 1 SURGICAL REQUEST - ELECTIVE (01/2020) [[id number]] Order #: [id number]: 1 SURGICAL REQUEST - ELECTIVE (01/2020) [[id number]] Order #: [id number]: 1 Prescriptions as of 12/09/2024 - oxyCODONE [...] Noted Resolved ASA CLASS III [1003] 02/09/2003 Gteyrqi-Ytnmt-Getus disease [G60.0] 02/07/2004 IDIO PERIPH NEURPTHY NEC [...] [I95.1] 02/19/2013 POTS (more content not included)... 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 [facility] OPERATIVE NOon 11-03-2024 OPERATIVE NO HNO ID: [id number] Author: VINI MCDONALD MD Service: Pain Management [...] in the office today: Trigger Point Injection(s): (83025) -Informed consent was obtained and all patient [...] 0.25% bupivacaine; distributed equally at each site. [facility] OPERATIVE NOon 10-06-2024 OPERATIVE NO HNO ID: [id number] Author: VINI MCDONALD MD Service: Pain Management [...] Botox Injection PROCEDURE: Botox injection CPT code: 47569 PREPROCEDURE DIAGNOSIS: Migraine headache POSTPROCEDURE DIAGNOSIS: same [...] was prepped with alcohol. BOTOX Lot Number: [id number] BOTOX was reconstituted to a concentration of 5 U/0.1mL. The following injections were made using a 30G needle: 5 Botox units to the procerus muscle 5 Botox units to the right bulk plant supervisor supercilii muscle 5 Botox units to the left bulk plant supervisor supercilii muscle 30 Botox units to the [...] the procedure well with no complications noted. [facility] CNOVon 09-18-2024 CNOV Office Visit (MIRZAMJK) ---- CAPRI AGUILAR ([id number]) 1975 F Date Time Provider Department 09/18/24 1:30 PM ERIKA CONWAY During your visit today, we recorded the following information about you: Pulse Respiration Blood pressure Weight 110/minute 18/minute 137/88 47.2 kg Antonella Valladares RN 09/18/2024 2:14 PM Signed Oxycodone am Med helps pain Denies side effects Last uds-09/18/24 09/10/24-TPI Erika Conway PA-C 09/18/2024 2:14 PM Signed This note was created using [employer]. Subjective Capri Aguilar is a 48 year [...] Acute gastritis without mention of hemorrhage CHARCOT Osvlqsz-Gewul-jpvdy disease, deafness, and intellectual disability syndrome (HCC) [...] of Systems Constitutional (more content not included)... [facility] OPERATIVE NOon 09-10-2024 OPERATIVE NO HNO ID: [id number] Author: VINI MCDONALD MD Service: Pain Management [...] in the office today: Trigger Point Injection(s): (77326) -Informed consent was obtained and all patient [...] 0.25% bupivacaine; distributed equally at each site. [facility] OPERATIVE NOon 09-08-2024 OPERATIVE NO HNO ID: [id number] Author: VINI MCDONALD MD Service: Pain Management [...] 0.25% bupivacaine; distributed equally at each site. [facility] 36 08-06-2024 36 Needs appt [facility] OPERATIVE NOon 07-16-2024 OPERATIVE NO HNO ID: [id number] Author: VINI MCDONALD MD Service: Pain Management [...] in the office today: Trigger Point Injection(s): (34914) -Informed consent was obtained and all patient [...] 0.25% bupivacaine; distributed equally at each site. [facility] OPERATIVE NOon 07-14-2024 OPERATIVE NO HNO ID: [id number] Author: VINI MCDONALD MD Service: Pain Management [...] in the office today: Trigger Point Injection(s): (81559) -Informed consent was obtained and all patient [...] 0.25% bupivacaine; distributed equally at each site. [facility] OPERATIVE NOon 07-07-2024 OPERATIVE NO HNO ID: [id number] Author: VINI MCDONALD MD Service: Pain Management Author Type: Anesthesiologist Type: Operative Report Filed: 07/07/2024 16:55 Note Text: ---- Summary: Botox Injections ---- PATIENT: Capri Cris Schusteron SURGEON: Primary: Vini [...] Botox Injection PROCEDURE: Botox injection CPT code: 70211 PREPROCEDURE DIAGNOSIS: Migraine headache POSTPROCEDURE DIAGNOSIS: same ANESTHESIA: none PROCEDURE REPORT: The risks and benefits of the procedure were explained to the patient and all questions were answered. The patient gave consent to proceed with the procedure. The skin was prepped with alcohol. BOTOX Lot Number: [id number] BOTOX was reconstituted to a concentration of 5 U/0.1mL. The following injections were made using a 30G needle: 5 Botox units to the procerus muscle 5 Botox units to the right bulk plant supervisor supercilii muscle 5 Botox units to the left bulk plant supervisor supercilii muscle 20 Botox units to the [...] the procedure well with no complications noted. Normal [facility] CNOVon 06-23-2024 CNOV Office Visit (MIRZAMJK) ---- AGUILAR,CAPRI Cris ([id number]) 1975 F Date Time Provider Department 06/23/24 1:00 PM ERIKA CONWAY During your visit today, we recorded the following information about you: Pulse Respiration Blood pressure 90/minute 16/minute 119/74 Erika Conway PA-C 06/23/2024 1:47 PM Addendum This note was created using [employer]. Subjective Capri Aguilar is a 48 year [...] Acute gastritis without mention of hemorrhage CHARCOT Vottoco-Gawvf-lysov disease, deafness, and intellectual disability syndrome Eczema [...] Thought content (more content not included)... Normal [facility] OPERATIVE NOon 05-19-2024 OPERATIVE NO HNO ID: [id number] Author: VINI MCDONALD MD Service: Pain Management [...] 0.25% bupivacaine; distributed equally at each site. [facility] OPERATIVE NOon 05-12-2024 OPERATIVE NO HNO ID: [id number] Author: VINI MCDONALD MD Service: Pain Management Author Type: Anesthesiologist Type: Operative Report Filed: 05/12/2024 15:48 Note Text: ---- Summary: TPI ---- PATIENT: Capri Cris ShaikhAguilar SURGEON: Primary: Vini Mcdonald MD : 1975 [...] 0.25% bupivacaine; distributed equally at each site. [facility] Basophil percentageOrdered B y: Mohit Henley on 08-08-2023 Bilirubin [Mass/Vol] 0.70 mg/dL 0.20-1.00 [facility] Comment on above: For patients on eltr ombopag therapy, use of Dimension [place] TBIL is not recommended. Chloride [Moles/Vol] 110 mmol/L 98-107 [facility] Glucose [Mass/Vol] 82 mg/dL 74-106 [facility] Hemoglobin (Bld) [Mass/Vol] 13.9 g/dL 12.0-15.0 [facility] Potassium [Moles/Vol] 3.3 mmol/L 3.5-5.1 [facility] Protein [Mass/Vol] 7.8 g/dL 6.4-8.2 [facility] Sodium [Moles/Vol] 141 mmol/L 136-145 [facility] WBC (Bld) [#/Vol] 7.8 10*3/uL 4.4-11.0 [facility] Determination of erythrocyte mean corpuscular volume (MCV)Ordered By: Mohit Henley on 08-08-2023 MCV (RBC) [Entitic vol] 91.6 fL 81-99 [facility] Erythrocyte distribution wid th ratioOrdered By: Mohit Henley on 08-08-2023 Erythrocyte distribution width (RBC) [Ratio] 12.6 % 11.6-14.6 [facility] Erythrocyte distribution wid th standard deviationOrdered By: Mohit Henley on 08-08-2023 Erythrocyte distribution width (RBC) [Entitic vol] 42.4 fL 35.1-43.9 [facility] Hematocrit Auto (Bld) [Volum e fraction]Ordered By: Mohit Henley on 08-08-2023 Hematocrit (Bld) [Volume fraction] 43.9 % 37-47 [facility] - Chemistry and C hemistry - challengeOrdered By: Mohit Henley on 08-08-2023 Albumin/Globulin [Mass ratio] 1.1 {ratio} 0.9-2.4 [facility] ALP [Catalytic activity/Vol] 72 U/L 45-117 [facility] ALT [Catalytic activity/Vol] 18 U/L 13-56 [facility] CO2 [Moles/Vol] 25.0 mmol/L 21.0-32.0 [facility] Globulin (S) [Mass/Vol] 3.7 g/dL 2.2-4.2 [facility] Urea nitrogen/Creatinine [Mass ratio] 10.0 mg/mg 10-20 [facility] - Hematology and Cell countsOrdered By: Mohit Henley on 08-08-2023 MCH (RBC) [Entitic mass] 29.0 pg 27.0-32.0 [facility] MCHC (RBC) [Mass/Vol] 31.7 g/dL 32-36 [facility] Platelet mean volume (Bld) [Entitic vol] 10.1 fL 6.2-12.0 [facility] Platelets (Bld) [#/Vol] 352 10*3/uL 150-450 [facility] No Panel InformationOrdered By: Mohit Henley on 08-08-2023 Estimated GFR (MDRD) Amer 87 mL/min >60 [facility] Comment on above: GFR Calc Estimated GFR (MDRD) Non-Af Amer 72 mL/min >60 [facility] Comment on above: Non- GFR Calc RBC Auto (Bld) [#/Vol]Ordere d By: Mohit Lory on 08-08-2023 RBC (Bld) [#/Vol] 4.79 10*6/uL 4.2-5.4 [facility] Serum or plasma calcium prashanth urement (mass/volume)Ordered By: Mohit Henley on 08-08-2023 Calcium [Mass/Vol] 9.7 mg/dL 8.5-10.1 [facility] Serum or plasma creatinine m easurement (mass/volume)Ordered By: Mohit Henley on 08-08-2023 Creatinine [Mass/Vol] 0.90 mg/dL 0.55-1.02 [facility] Comment on above: The validity of the calculated GFR & GFRAA in patients over 70 years has not been determined. Clinical correlation is essential. Serum or plasma urea nitroge n measurement (mass/volume)Ordered By: Mohit Henley on 08-08-2023 Urea nitrogen [Mass/Vol] 9 mg/dL 7-18 [facility] Thin prep Papanicolaou smear with manual screeningOrdered By: Mohit Henley on 08-08-2023 Thin prep Papanicolaou smear with manual screening 4.1 g/dL 3.2-5.0 [facility] Thin prep Papanicolaou smear with manual screening 18 U/L 15-37 [facility] Thin prep Papanicolaou smear with manual screening 6 5-15 [facility] 6-ACETYLMORPHINon 11-03-2018 6-JULIOCESAR TOXASSURE Negative Normal () [facility] Comment on above: Order Comment: Rasheed Harvey Performed By: #### L 600.46174, L600.47198 #### [facility] [address] [place] [address] # [phone] CONFIRMATION 6M Not Detected Normal () [facility] Comment on above: Order Comment: Rasheed Harvey Result Comment: INFC E Result Units: ng/mg creat Testing Threshold: 10 ng/mL This test was developed and its performance characteristics determined by [facility]. It has not been cleared or approved by the Food and Drug Administration. Performed At: [facility] [address] [id number] [place] [facility] [id number] Performed By: #### L 600.03148, L600.65458 #### [facility] [address] [place] [address] # [phone] TOXASSURE COMPRon 11-03-2018 TOXASSURE COMPR FINAL Normal () [facility] Comment on above: Order Comment: Campu s: [...] call . 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 Left ventricular Ejection fraction 55 % Invalid Interpretation Code [employer] Work Phone: Replaced Document: Tana Villareal CG Observationson 01-09-2016 electrocardiogram interpretation Sinus Rhythm WITHIN NORMAL LIMITS Invalid Interpretation Code [employer] Work Phone: [phone] GE use only - for [employer] import when terms are not otherwise specified 391 ms Invalid Interpretation Code [employer] Work Phone: [phone] Heart rate 86 /min Invalid Interpretation Code [facility] Work Phone: [phone] P wave axis, electrocardiogram 61 deg Invalid Interpretation Code [facility] Work Phone: [phone] UT interval, electrocardiogram 128 ms Invalid Interpretation Code [facility] Work Phone: [phone] QRS axis, electrocardiogram 47 deg Invalid Interpretation Code [facility] Work Phone: [phone] QRS duration, electrocardiogram 94 ms Invalid Interpretation Code [facility] Work Phone: [phone] QT interval, electrocardiogram new path ms Invalid Interpretation Code [facility] Work Phone: [phone] T wave axis, electrocardiogram 32 deg Invalid Interpretation Code [facility] Work Phone: Office Visiton 06-24-2015 Tobacco use status CPHS Never smoker Invalid Interpretation Code [facility] Work Phone: Office Visit: MMMon 07-07-19 15 cardiac risk group A Invalid Interpretation Code [facility] Work Phone: General cardiovascular disease 10Y risk [#] [email or web address] Not enough information Invalid Interpretation Code [facility] Work Phone: Tobacco smoking status Never Invalid Interpretation Code [facility] Work Phone: Clinical 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 06-29-2014 Left ventricular Ejection fraction 55 % Invalid Interpretation Code [facility] Work Phone: Replaced Document: Tana Villareal CG Observationson 08-14-2012 QT interval/QT interval (corrected for heart rate), electrocardiogram 386 ms Invalid Interpretation Code [facility] Work Phone: Vital Signs Date Time Vital Sign Value Performing Clinician Facility 02-23-2025 16:46-0400 Diastolic blood pressure 87 mm[Hg] Vini Mcdonald MD Work Phone: [facility] 02-23-2025 16:46-0400 Heart rate 93 /min Vini Mcdonald MD Work Phone: [facility] 02-23-2025 16:46-0400 Respiratory rate 16 /min Vini Mcdonald MD Work Phone: [facility] 02-23-2025 16:46-0400 Systolic blood pressure 146 mm[Hg] Vini Mcdonald MD Work Phone: [facility] 02-23-2025 15:53-0400 Body temperature 98.29 [degF] Vini Mcdonald MD Work Phone: [facility] 02-23-2025 15:53-0400 SaO2% (BldA) [Mass fraction] 97 % Vini Mcdonald MD Work Phone: [facility] 01-05-2025 15:23-0400 Diastolic blood pressure 92 mm[Hg] Vini Mcdonald MD Work Phone: [facility] 01-05-2025 15:23-0400 Heart rate 117 /min Vini Mcdonald MD Work Phone: [facility] 01-05-2025 15:23-0400 Respiratory rate 18 /min Vini Mcdonald MD Work Phone: [facility] 01-05-2025 15:23-0400 Systolic blood pressure 148 mm[Hg] Vini Mcdonald MD Work Phone: [facility] 01-05-2025 15:04-0400 Body temperature 98.4 [degF] Vini Mcdonald MD Work Phone: [facility] 01-05-2025 15:04-0400 SaO2% (BldA) [Mass fraction] 99 % Vini Mcdonald MD Work Phone: [facility] 01-05-2025 14:37-0400 Diastolic blood pressure 80 mm[Hg] Erika Conway PA-C Work Phone: [facility] 01-05-2025 14:37-0400 Heart rate 91 /min Erika Conway PA-C Work Phone: [facility] 01-05-2025 14:37-0400 Respiratory rate 16 /min Erika Conway PA-C Work Phone: [facility] 01-05-2025 14:37-0400 SaO2% (BldA) [Mass fraction] 99 % Erika Conway PA-C Work Phone: [facility] 01-05-2025 14:37-0400 Systolic blood pressure 126 mm[Hg] Erika Conway PA-C Work Phone: [facility] 12-31-2024 15:41-0400 Diastolic blood pressure 74 mm[Hg] Vini Mcdonald MD Work Phone: [facility] 12-31-2024 15:41-0400 Heart rate 110 /min Vini Mcdonald MD Work Phone: [facility] 12-31-2024 15:41-0400 Respiratory rate 18 /min Vini Mcdonald MD Work Phone: [facility] 12-31-2024 15:41-0400 Systolic blood pressure 142 mm[Hg] Vini Mcdonald MD Work Phone: [facility] 12-31-2024 15:10-0400 Body temperature 96.8 [degF] Vini Mcdonald MD Work Phone: [facility] 12-29-2024 15:57-0400 Diastolic blood pressure 81 mm[Hg] Vini Mcdonald MD Work Phone: [facility] 12-29-2024 15:57-0400 Heart rate 102 /min Vini Mcdonald MD Work Phone: [facility] 12-29-2024 15:57-0400 Respiratory rate 16 /min Vini Mcdonald MD Work Phone: [facility] 12-29-2024 15:57-0400 Systolic blood pressure 135 mm[Hg] Vini Mcdonald MD Work Phone: [facility] 12-29-2024 15:16-0400 SaO2% (BldA) [Mass fraction] 100 % Vini Mcdonald MD Work Phone: [facility] 11-05-2024 15:38-0400 Diastolic blood pressure 84 mm[Hg] Vini Mcdonald MD Work Phone: [facility] 11-05-2024 15:38-0400 Heart rate 110 /min Vini Mcdonald MD Work Phone: [facility] 11-05-2024 15:38-0400 Respiratory rate 18 /min Vini Mcdonald MD Work Phone: [facility] 11-05-2024 15:38-0400 Systolic blood pressure 140 mm[Hg] Vini Mcdonald MD Work Phone: [facility] 11-05-2024 15:18-0400 Body temperature 96.6 [degF] Vini Mcdonald MD Work Phone: [facility] 11-03-2024 15:48-0400 Diastolic blood pressure 63 mm[Hg] Vini Mcdonald MD Work Phone: [facility] 11-03-2024 15:48-0400 Heart rate 93 /min Vini Mcdonald MD Work Phone: [facility] 11-03-2024 15:48-0400 Respiratory rate 18 /min Vini Mcdonald MD Work Phone: [facility] 11-03-2024 15:48-0400 SaO2% (BldA) [Mass fraction] 99 % Vini Mcdonald MD Work Phone: [facility] 11-03-2024 15:48-0400 Systolic blood pressure 143 mm[Hg] Vini Mcdonald MD Work Phone: [facility] 10-06-2024 16:00-0400 Diastolic blood pressure 86 mm[Hg] Vini Mcdonald MD Work Phone: [facility] 10-06-2024 16:00-0400 Heart rate 100 /min Vini Mcdonald MD Work Phone: [facility] 10-06-2024 16:00-0400 Respiratory rate 18 /min Vini Mcdonald MD Work Phone: [facility] 10-06-2024 16:00-0400 Systolic blood pressure 131 mm[Hg] Vini Mcdonald MD Work Phone: [facility] 10-06-2024 15:21-0400 Body temperature 97.3 [degF] Vini Mcdonald MD Work Phone: [facility] 10-06-2024 15:21-0400 SaO2% (BldA) [Mass fraction] 99 % Vini Mcdonald MD Work Phone: [facility] 09-18-2024 13:26-0400 Body mass index (BMI) [Ratio] 16.29 kg/m2 Erika QUINTANA-C Work Phone: [facility] 09-18-2024 13:26-0400 Body weight 47.17 kg Erika Conway PA-C Work Phone: [facility] 09-18-2024 13:26-0400 Diastolic blood pressure 88 mm[Hg] Erika Conway PA-C Work Phone: [facility] 09-18-2024 13:26-0400 Heart rate 110 /min Erika QUINTANA-C Work Phone: [facility] 09-18-2024 13:26-0400 Respiratory rate 18 /min Erika Conway PA-C Work Phone: [facility] 09-18-2024 13:26-0400 SaO2% (BldA) [Mass fraction] 97 % Erika QUINTANA-C Work Phone: [facility] 09-18-2024 13:26-0400 Systolic blood pressure 137 mm[Hg] Erika Conway PA-C Work Phone: [facility] 09-10-2024 15:50-0400 Diastolic blood pressure 84 mm[Hg] Vini Mcdonald MD Work Phone: [facility] 09-10-2024 15:50-0400 Heart rate 85 /min Vini Mcdonald MD Work Phone: [facility] 09-10-2024 15:50-0400 Respiratory rate 18 /min Vini Mcdonald MD Work Phone: [facility] 09-10-2024 15:50-0400 Systolic blood pressure 135 mm[Hg] Vini Mcdonald MD Work Phone: [facility] 09-10-2024 15:05-0400 Body temperature 96.8 [degF] Vini Mcdonald MD Work Phone: [facility] 09-08-2024 16:11-0400 Diastolic blood pressure 87 mm[Hg] Vini Mcdonald MD Work Phone: [facility] 09-08-2024 16:11-0400 Heart rate 100 /min Vini Mcdonald MD Work Phone: [facility] 09-08-2024 16:11-0400 Respiratory rate 16 /min Vini Mcdonald MD Work Phone: [facility] 09-08-2024 16:11-0400 Systolic blood pressure 151 mm[Hg] Vini Mcdonald MD Work Phone: [facility] 09-08-2024 15:32-0400 Body temperature 97.3 [degF] Vini Mcdonald MD Work Phone: [facility] 09-08-2024 15:32-0400 SaO2% (BldA) [Mass fraction] 100 % Vini Mcdonald MD Work Phone: [facility] 07-16-2024 15:29-0500 Heart rate 105 /min Vini Mcdonald MD Work Phone: [facility] 07-16-2024 15:29-0500 Respiratory rate 18 /min Vini Mcdonald MD Work Phone: [facility] 07-16-2024 14:57-0500 Body temperature 96.4 [degF] Vini Mcdonald MD Work Phone: [facility] 07-16-2024 14:57-0500 Diastolic blood pressure 67 mm[Hg] Vini Mcdonald MD Work Phone: [facility] 07-16-2024 14:57-0500 Systolic blood pressure 119 mm[Hg] Vini Mcdonald MD Work Phone: [facility] 07-14-2024 15:13-0500 Diastolic blood pressure 81 mm[Hg] Vini Mcdonald MD Work Phone: [facility] 07-14-2024 15:13-0500 Heart rate 102 /min Vini Mcdonald MD Work Phone: [facility] 07-14-2024 15:13-0500 Respiratory rate 18 /min Vini Mcdonald MD Work Phone: [facility] 07-14-2024 15:13-0500 Systolic blood pressure 136 mm[Hg] Vini Mcdonald MD Work Phone: [facility] 07-14-2024 14:44-0500 Body temperature 98.4 [degF] Vini Mcdonald MD Work Phone: [facility] 07-07-2024 16:19-0500 Diastolic blood pressure 78 mm[Hg] Vini Mcdonald MD Work Phone: [facility] 07-07-2024 16:19-0500 Heart rate 114 /min Vini Mcdonald MD Work Phone: [facility] 07-07-2024 16:19-0500 Respiratory rate 16 /min Vini Mcdonald MD Work Phone: [facility] 07-07-2024 16:19-0500 SaO2% (BldA) [Mass fraction] 98 % Vini Mcdonald MD Work Phone: [facility] 07-07-2024 16:19-0500 Systolic blood pressure 122 mm[Hg] Vini Mcdonald MD Work Phone: [facility] 07-07-2024 15:23-0500 Body temperature 98.49 [degF] Vini Mcdonald MD Work Phone: [facility] 06-23-2024 13:00-0500 Diastolic blood pressure 74 mm[Hg] Erika Conway PA-C Work Phone: [facility] 06-23-2024 13:00-0500 Heart rate 90 /min Erika Conway PA-C Work Phone: [facility] 06-23-2024 13:00-0500 Respiratory rate 16 /min Erika Conway PA-C Work Phone: [facility] 06-23-2024 13:00-0500 SaO2% (BldA) [Mass fraction] 100 % Erika Conawy PA-C Work Phone: [facility] 06-23-2024 13:00-0500 Systolic blood pressure 119 mm[Hg] Erika Conway PA-C Work Phone: [facility] 05-19-2024 15:42-0500 Diastolic blood pressure 84 mm[Hg] Vini Mcdonald MD Work Phone: [facility] 05-19-2024 15:42-0500 Heart rate 75 /min Viin Mcdonald MD Work Phone: [facility] 05-19-2024 15:42-0500 Respiratory rate 18 /min Vini Mcdonald MD Work Phone: [facility] 05-19-2024 15:42-0500 Systolic blood pressure 136 mm[Hg] Vini Mcdonald MD Work Phone: [facility] 05-12-2024 15:48-0500 Diastolic blood pressure 83 mm[Hg] Vini Mcdonald MD Work Phone: [facility] 05-12-2024 15:48-0500 Heart rate 101 /min Vini Mcdonald MD Work Phone: [facility] 05-12-2024 15:48-0500 Respiratory rate 18 /min Vini Mcdonald MD Work Phone: [facility] 05-12-2024 15:48-0500 Systolic blood pressure 144 mm[Hg] Vini Mcdonald MD Work Phone: [facility] 05-12-2024 15:12-0500 Body temperature 96.91 [degF] Vini Mcdonald MD Work Phone: [facility] 04-02-2024 15:55-0400 Diastolic blood pressure 79 mm[Hg] Vini Mcdonald MD Work Phone: [facility] 04-02-2024 15:55-0400 Heart rate 97 /min Vini Mcdonald MD Work Phone: [facility] 04-02-2024 15:55-0400 Respiratory rate 18 /min Vini Mcdonald MD Work Phone: [facility] 04-02-2024 15:55-0400 Systolic blood pressure 137 mm[Hg] Vini Mcdonald MD Work Phone: [facility] 04-02-2024 15:16-0400 Body temperature 96.8 [degF] Vini Mcdonald MD Work Phone: [facility] 03-25-2024 14:25-0400 Body mass index (BMI) [Ratio] 16.29 kg/m2 Erika Conway PA-C Work Phone: [facility] 03-25-2024 14:25-0400 Body weight 47.17 kg Erika Conway PA-C Work Phone: [facility] 03-25-2024 14:25-0400 Diastolic blood pressure 85 mm[Hg] Erika Conway PA-C Work Phone: [facility] 03-25-2024 14:25-0400 Heart rate 97 /min Erika Conway PA-C Work Phone: [facility] 03-25-2024 14:25-0400 Respiratory rate 18 /min Erika Conway PA-C Work Phone: [facility] 03-25-2024 14:25-0400 SaO2% (BldA) [Mass fraction] 100 % Erika Conway PA-C Work Phone: [facility] 03-25-2024 14:25-0400 Systolic blood pressure 125 mm[Hg] Erika Conway PA-C Work Phone: [facility] 03-12-2024 15:36-0400 Diastolic blood pressure 84 mm[Hg] Vini Mcdonald MD Work Phone: [facility] 03-12-2024 15:36-0400 Heart rate 90 /min Vini Mcdonald MD Work Phone: [facility] 03-12-2024 15:36-0400 Respiratory rate 18 /min Vini Mcdonald MD Work Phone: [facility] 03-12-2024 15:36-0400 Systolic blood pressure 146 mm[Hg] Vini Mcdonald MD Work Phone: [facility] 03-12-2024 14:54-0400 Body temperature 97.81 [degF] Vini Mcdonald MD Work Phone: [facility] 03-10-2024 15:42-0400 Diastolic blood pressure 88 mm[Hg] Vini Mcdonald MD Work Phone: [facility] 03-10-2024 15:42-0400 Heart rate 82 /min Vini Mcdonald MD Work Phone: [facility] 03-10-2024 15:42-0400 Respiratory rate 18 /min Vini Mcdonald MD Work Phone: [facility] 03-10-2024 15:42-0400 Systolic blood pressure 148 mm[Hg] Vini Mcdonald MD Work Phone: [facility] 03-10-2024 15:02-0400 Body temperature 97.7 [degF] Vini Mcdonald MD Work Phone: [facility] 01-14-2024 15:52-0400 Diastolic blood pressure 87 mm[Hg] Vini Mcdonald MD Work Phone: [facility] 01-14-2024 15:52-0400 Heart rate 74 /min Vini Mcdonald MD Work Phone: [facility] 01-14-2024 15:52-0400 Respiratory rate 18 /min Vini Mcdonald MD Work Phone: [facility] 01-14-2024 15:52-0400 Systolic blood pressure 125 mm[Hg] Vini Mcdonald MD Work Phone: [facility] 01-14-2024 15:25-0400 Body temperature 96.8 [degF] Vini Mcdonald MD Work Phone: [facility] 01-09-2024 15:37-0400 Body temperature 97 [degF] Vini Mcdonald MD Work Phone: [facility] 01-09-2024 15:37-0400 Diastolic blood pressure 78 mm[Hg] Vini Mcdonald MD Work Phone: [facility] 01-09-2024 15:37-0400 Heart rate 86 /min Vini Mcdonald MD Work Phone: [facility] 01-09-2024 15:37-0400 Respiratory rate 18 /min Vini Mcdonald MD Work Phone: [facility] 01-09-2024 15:37-0400 Systolic blood pressure 128 mm[Hg] Vini Mcdonald MD Work Phone: [facility] 12-18-2023 14:16-0400 Body mass index (BMI) [Ratio] 16.29 kg/m2 Vini Mcdonald MD Work Phone: [facility] 12-18-2023 14:16-0400 Body weight 47.17 kg Vini Mcdonald MD Work Phone: [facility] 12-18-2023 14:16-0400 Diastolic blood pressure 70 mm[Hg] Vini Mcdonald MD Work Phone: [facility] 12-18-2023 14:16-0400 Heart rate 67 /min Vini Mcdonald MD Work Phone: [facility] 12-18-2023 14:16-0400 Respiratory rate 18 /min Vini Mcdonald MD Work Phone: [facility] 12-18-2023 14:16-0400 SaO2% (BldA) [Mass fraction] 97 % Vini Mcdonald MD Work Phone: [facility] 12-18-2023 14:16-0400 Systolic blood pressure 134 mm[Hg] Vini Mcdonald MD Work Phone: [facility] 11-14-2023 13:50-0400 Diastolic blood pressure 78 mm[Hg] Dejon Andres MD Work Phone: [facility] 11-14-2023 13:50-0400 Heart rate 67 /min Dejon Andres MD Work Phone: [facility] 11-14-2023 13:50-0400 Respiratory rate 18 /min Dejon Andres MD Work Phone: [facility] 11-14-2023 13:50-0400 Systolic blood pressure 143 mm[Hg] Dejon Andres MD Work Phone: [facility] 11-14-2023 13:16-0400 Body temperature 97.2 [degF] Dejon Andres MD Work Phone: [facility] 10-29-2023 14:31-0400 Body mass index (BMI) [Ratio] 16.29 kg/m2 Erika QUINTANA-C Work Phone: [facility] 10-29-2023 14:31-0400 Body weight 47.17 kg Erika QUINTANA-C Work Phone: [facility] 10-29-2023 14:31-0400 Diastolic blood pressure 76 mm[Hg] Erika QUINTANA-C Work Phone: [facility] 10-29-2023 14:31-0400 Heart rate 106 /min Erika QUINTANA-C Work Phone: [facility] 10-29-2023 14:31-0400 Respiratory rate 18 /min Erika QUINTANA-C Work Phone: [facility] 10-29-2023 14:31-0400 SaO2% (BldA) [Mass fraction] 99 % Erika Conway PA-C Work Phone: [facility] 10-29-2023 14:31-0400 Systolic blood pressure 147 mm[Hg] Erika Conway PA-C Work Phone: [facility] 10-24-2023 09:31-0400 Diastolic blood pressure 82 mm[Hg] Dejon Andres MD Work Phone: [facility] 10-24-2023 09:31-0400 Heart rate 81 /min Dejon Andres MD Work Phone: [facility] 10-24-2023 09:31-0400 Respiratory rate 18 /min Dejon Andres MD Work Phone: [facility] 10-24-2023 09:31-0400 SaO2% (BldA) [Mass fraction] 100 % Dejon Andres MD Work Phone: [facility] 10-24-2023 09:31-0400 Systolic blood pressure 130 mm[Hg] Dejon Andres MD Work Phone: [facility] 10-24-2023 09:13-0400 Body temperature 96.4 [degF] Dejon Andres MD Work Phone: [facility] 10-22-2023 16:21-0400 Diastolic blood pressure 88 mm[Hg] Dejon Andres MD Work Phone: [facility] 10-22-2023 16:21-0400 Heart rate 82 /min Dejon Andres MD Work Phone: [facility] 10-22-2023 16:21-0400 Respiratory rate 18 /min Dejon Andres MD Work Phone: [facility] 10-22-2023 16:21-0400 Systolic blood pressure 137 mm[Hg] Dejon Andres MD Work Phone: [facility] 10-22-2023 16:07-0400 Body temperature 97.11 [degF] Dejon Andres MD Work Phone: [facility] 09-19-2023 14:45-0400 Body height 170.2 cm Erika Conway PA-C Work Phone: [facility] 09-19-2023 14:45-0400 Body temperature 98.1 [degF] Erika Conway PA-C Work Phone: [facility] 09-19-2023 14:45-0400 Body weight 47.17 kg Erika Conway PA-C Work Phone: [facility] 09-19-2023 14:45-0400 Diastolic blood pressure 57 mm[Hg] Erika Conway PA-C Work Phone: [facility] 09-19-2023 14:45-0400 Heart rate 103 /min Erika QUINTANA-C Work Phone: [facility] 09-19-2023 14:45-0400 Respiratory rate 18 /min Erika Conway PA-C Work Phone: [facility] 09-19-2023 14:45-0400 SaO2% (BldA) [Mass fraction] 97 % Erika Conway PA-C Work Phone: [facility] 09-19-2023 14:45-0400 Systolic blood pressure 109 mm[Hg] Erika Conway PA-C Work Phone: [facility] 09-03-2023 15:19-0400 Diastolic blood pressure 76 mm[Hg] Dejon Andres MD Work Phone: [facility] 09-03-2023 15:19-0400 Heart rate 115 /min Dejon Andres MD Work Phone: [facility] 09-03-2023 15:19-0400 Respiratory rate 18 /min Dejon Andres MD Work Phone: [facility] 09-03-2023 15:19-0400 Systolic blood pressure 119 mm[Hg] Dejon Andres MD Work Phone: [facility] 09-03-2023 15:04-0400 Body temperature 96.6 [degF] Dejon Andres MD Work Phone: [facility] 08-29-2023 15:12-0400 Diastolic blood pressure 72 mm[Hg] Dejon Andres MD Work Phone: [facility] 08-29-2023 15:12-0400 Heart rate 100 /min Dejon Andres MD Work Phone: [facility] 08-29-2023 15:12-0400 Respiratory rate 18 /min Dejon Andres MD Work Phone: [facility] 08-29-2023 15:12-0400 Systolic blood pressure 122 mm[Hg] Dejon Andres MD Work Phone: [facility] 08-29-2023 14:59-0400 Body temperature 96.3 [degF] Dejon Andres MD Work Phone: [facility] 08-12-2023 10:25-0500 Body temperature 97.3 [degF] [facility] 08-12-2023 10:25-0500 Diastolic blood pressure 74 mm[Hg] [facility] 08-12-2023 10:25-0500 Heart rate 79 /min [facility] 08-12-2023 10:25-0500 Respiratory rate 16 /min [facility] 08-12-2023 10:25-0500 SaO2% (BldA) [Mass fraction] 99 % [facility] 08-12-2023 10:25-0500 Systolic blood pressure 114 mm[Hg] [facility] 08-12-2023 09:32-0500 Body height 170.18 cm [facility] 08-12-2023 09:32-0500 Body mass index (BMI) [Ratio] 16.9 kg/m2 [facility] 08-12-2023 09:32-0500 Body weight 49.1 kg [facility] 08-06-2023 15:13-0500 Diastolic blood pressure 89 mm[Hg] Dejon Andres MD Work Phone: [facility] 08-06-2023 15:13-0500 Heart rate 120 /min Dejon Andres MD Work Phone: [facility] 08-06-2023 15:13-0500 Respiratory rate 18 /min Dejon Andres MD Work Phone: [facility] 08-06-2023 15:13-0500 Systolic blood pressure 152 mm[Hg] Dejon Andres MD Work Phone: [facility] 08-06-2023 14:50-0500 Body temperature 97.81 [degF] Dejon Andres MD Work Phone: [facility] 03-18-2023 16:37-0400 Body height 173.7 cm Morteza Meza DO Work Phone: [facility] 03-18-2023 16:37-0400 Body weight 48.99 kg Morteza Meza DO Work Phone: [facility] 03-18-2023 16:37-0400 Diastolic blood pressure 66 mm[Hg] Morteza Meza DO Work Phone: [facility] 03-18-2023 16:37-0400 Heart rate 84 /min Morteza Meza DO Work Phone: [facility] 03-18-2023 16:37-0400 Respiratory rate 19 /min Morteza Meza DO Work Phone: [facility] 03-18-2023 16:37-0400 SaO2% (BldA) [Mass fraction] 96 % Morteza Meza DO Work Phone: [facility] 03-18-2023 16:37-0400 Systolic blood pressure 128 mm[Hg] Morteza Meza DO Work Phone: [facility] 01-31-2023 13:53-0400 Diastolic blood pressure 90 mm[Hg] Morteza Meza DO Work Phone: [facility] 01-31-2023 13:53-0400 Heart rate 98 /min Morteza Meza DO Work Phone: [facility] 01-31-2023 13:53-0400 Respiratory rate 16 /min Mauriciovaleria Meza DO Work Phone: [facility] 01-31-2023 13:53-0400 SaO2% (BldA) [Mass fraction] 99 % Morteza Meza DO Work Phone: [facility] 01-31-2023 13:53-0400 Systolic blood pressure 136 mm[Hg] Morteza Meza DO Work Phone: [facility] 01-31-2023 13:22-0400 Body temperature 97.81 [degF] Morteza Meza DO Work Phone: [facility] 01-31-2023 13:22-0400 Body weight 48.81 kg Morteza Meza DO Work Phone: [facility] 08-23-2022 13:35-0400 Body weight 44.81 kg Mauriciovaleria Meza DO Work Phone: [facility] 08-23-2022 13:35-0400 Diastolic blood pressure 90 mm[Hg] Morteza Meza DO Work Phone: [facility] 08-23-2022 13:35-0400 Heart rate 110 /min Morteza Meza DO Work Phone: [facility] 08-23-2022 13:35-0400 Respiratory rate 16 /min Morteza Meza DO Work Phone: [facility] 08-23-2022 13:35-0400 SaO2% (BldA) [Mass fraction] 100 % Morteza Meza DO Work Phone: [facility] 08-23-2022 13:35-0400 Systolic blood pressure 150 mm[Hg] Morteza Meza DO Work Phone: [facility] 08-23-2022 13:04-0400 Body temperature 98.4 [degF] Morteza Meza DO Work Phone: [facility] 01-30-2022 14:37-0400 Body height 173.7 cm Morteza Meza DO Work Phone: [facility] 01-30-2022 14:37-0400 Body weight 46.27 kg Morteza Meza DO Work Phone: [facility] 01-30-2022 14:37-0400 Diastolic blood pressure 81 mm[Hg] Morteza Meza DO Work Phone: [facility] 01-30-2022 14:37-0400 Heart rate 101 /min Morteza Meza DO Work Phone: [facility] 01-30-2022 14:37-0400 Respiratory rate 19 /min Morteza Meza DO Work Phone: [facility] 01-30-2022 14:37-0400 SaO2% (BldA) [Mass fraction] 98 % Morteza Meza DO Work Phone: [facility] 01-30-2022 14:37-0400 Systolic blood pressure 132 mm[Hg] Morteza Meza DO Work Phone: [facility] 12-13-2021 13:52-0400 Diastolic blood pressure 68 mm[Hg] Morteza Meza DO Work Phone: [facility] 12-13-2021 13:52-0400 Heart rate 112 /min Morteza Meza DO Work Phone: [facility] 12-13-2021 13:52-0400 Respiratory rate 16 /min Morteza Meza DO Work Phone: [facility] 12-13-2021 13:52-0400 SaO2% (BldA) [Mass fraction] 100 % Morteza Meza DO Work Phone: [facility] 12-13-2021 13:52-0400 Systolic blood pressure 138 mm[Hg] Morteza Meza DO Work Phone: [facility] 02-12-2019 16:55-0400 Body height 170.2 cm Rashida Lange APRN.RELIABILITY ENGINEER Work Phone: [facility] 02-12-2019 16:55-0400 Body weight 59.24 kg Rashida Lange SKIDWAY WORKER.RELIABILITY ENGINEER Work Phone: [facility] 02-12-2019 16:55-0400 Diastolic blood pressure 89 mm[Hg] Rashida Lange SKIDWAY WORKER.RELIABILITY ENGINEER Work Phone: [facility] 02-12-2019 16:55-0400 Heart rate 104 /min Rashida Moseleyricky SKIDWAY WORKER.RELIABILITY ENGINEER Work Phone: [facility] 02-12-2019 16:55-0400 SaO2% (BldA) [Mass fraction] 98 % Rashida Lange SKIDWAY WORKER.RELIABILITY ENGINEER Work Phone: [facility] 02-12-2019 16:55-0400 Systolic blood pressure 139 mm[Hg] Rashida Lange SKIDWAY WORKER.RELIABILITY ENGINEER Work Phone: [facility] 04-18-2017 14:19-0500 Body mass index (BMI) [Ratio] 16.72 kg/m2 [employer] Work Phone: 04-18-2017 14:19-0500 Body weight 49.9 kg [facility] Work Phone: 04-18-2017 14:19-0500 Diastolic blood pressure 80 mm[Hg] [facility] Work Phone: 04-18-2017 14:19-0500 Heart rate 80 /min [facility] Work Phone: 04-18-2017 14:19-0500 Systolic blood pressure 110 mm[Hg] [facility] Work Phone: 10-11-2016 15:34-0400 Body mass index (BMI) [Ratio] 16.42 kg/m2 [employer] Work Phone: 10-11-2016 15:34-0400 Body weight 48.99 kg [facility] Work Phone: 10-11-2016 15:34-0400 Diastolic blood pressure 48 mm[Hg] [facility] Work Phone: 10-11-2016 15:34-0400 Heart rate 92 /min [facility] Work Phone: 10-11-2016 15:34-0400 Respiratory rate 16 /min [facility] [employer] Work Phone: 10-11-2016 15:34-0400 Systolic blood pressure 102 mm[Hg] [facility] [employer] Work Phone: 01-09-2016 11:05-0400 Body surface area Derived from formula 1.6 m2 [facility] [employer] Work Phone: 06-29-2011 11:17-0500 Body height 172.72 cm Erica Mae [employer] Work Phone: Encounters Encounter Date Encounter Type Care Provider Facility Start: 04-20-2025 ambulatory VINI Rivera ty:[id number] Start: 04-19-2025 End: 04-19-2025 ambulatory Michele Galvan Facility:[facility] Start: 04-13-2025 ambulatory Mayuri Perry [facility] Start: 04-08-2025 ambulatory Hakan Tyson [facility] Start: 04-08-2025 Encounter for preprocedural cardiovascular examination Kamaljit Harding [facility] Start: 04-08-2025 End: 04-08-2025 ambulatory Kamaljit Harding Facility[facility] Start: 04-08-2025 End: 04-08-2025 ambulatory Kamaljit Harding Facility:[facility] Start: 04-06-2025 ambulatory VINI Rivera ty:[id number] Start: 03-19-2025 End: 03-19-2025 ambulatory ERIKA CONWAY Facility:[id number] Start: 03-05-2025 End: 03-05-2025 ambulatory Michele Galvan MD Work Phone: [facility] Start: 03-05-2025 End: 03-05-[address] Michele Galvan MD -Laboratory [facility] Start: 03-05-2025 End: 03-05-2025 ambulatory Michele Galvan Facility:[facility] Start: 02-25-2025 End: 02-25-2025 ambulatory VINI MCDONALD Facility:[id number] Start: 02-23-2025 End: 02-23-2025 ambulatory VINI MCDONALD Facility:[id number] Start: 02-23-2025 End: 02-23-2025 Subsequent hospital visit by physician Vini Mcdonald MD Work Phone: PAIN KAGN PROCEDURES Comment on above: Myofascial pain synd [...] Work Phone: Pain Management Comment on above: Wrcbsna-Curbg-Ptukr disease (Primary Dx); Darin-Danlos syndrome (HCC); Marfan's syndrome (HCC); Myofascial pain syndrome; Fibromyalgia; Migraine, unspecified, without mention of intractable migraine without mention of status migrainosus Start: 01-05-2025 End: 01-05-2025 ambulatory ERIKA CONWAY Facility:[id number] Start: 12-31-2024 ambulatory VINI MCDONALD [facility] ty:[id number] Start: 12-31-2024 End: 12-31-2024 Subsequent hospital visit by physician Vini Mcdonald MD Work Phone: PAIN KANG PROCEDURES Comment on above: Myofascial pain synd dane [M79.18], Fibromyalgia [M79.7] Start: 12-30-2024 End: 12-30-2024 Telephone encounter Vini Mcdonald MD Work Phone: Pain Management Start: 12-29-2024 ambulatory VINI Rivera ty:[id number] Start: 12-29-2024 End: 12-29-2024 Subsequent hospital visit [...] Refill Request Start: 11-05-2024 ambulatory VINI Rivera ty:[id number] Start: 11-05-2024 End: 11-05-2024 Subsequent hospital visit by physician Vini Mcdonald MD Work Phone: PAIN KANG PROCEDURES Comment on above: Myofascial pain synd adne [M79.18] Start: 11-03-2024 ambulatory VINI ESCOBARROSIE Nicole ty:[id number] Start: 11-03-2024 End: 11-03-2024 Subsequent hospital visit [...] (Primary Dx); Fibromyalgia Start: 10-06-2024 ambulatory VINI ROBINSLEEANN Paulinalink ty:[id number] Start: 10-06-2024 End: 10-06-2024 Subsequent hospital visit [...] above: Darin-Danlos syndro me (HCC) (Primary Dx); Jrdhsjx-Zdtcq-Cqkyd disease; Marfan's syndrome (HCC); Migraine, unspecified, without mention of intractable migraine without mention of status migrainosus; Fibromyalgia; Myofascial pain syndrome; 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 Start: 09-18-2024 End: 09-18-2024 ambulatory ERIKA CONWAY Facility:[id number] Start: 09-11-2024 End: 09-11-2024 Refill Erika Conway PA-C Work Phone: Pain Management Comment on above: Refill Request Start: 09-10-2024 ambulatory VINI Rivera ty:[id number] Start: 09-10-2024 End: 09-10-2024 Subsequent hospital visit by physician Vini Mcdonald MD Work Phone: PAIN KANG PROCEDURES Comment on above: Myofascial pain synd dane [M79.18] Start: 09-08-2024 ambulatory VINI Rivera ty:[id number] Start: 09-08-2024 End: 09-08-2024 Subsequent hospital visit [...] Refill Request Start: 07-16-2024 ambulatory VINI Rivera ty:[id number] Start: 07-16-2024 End: 07-16-2024 Subsequent hospital visit by physician Vini Mcdonald MD Work Phone: PAIN KANG PROCEDURES Comment on above: Myofascial pain synd dane [M79.18] Start: 07-14-2024 ambulatory VINI Rivera ty:[id number] Start: 07-14-2024 End: 07-14-2024 Subsequent hospital visit [...] 07-07-2024 End: 07-07-2024 E-mail encounter from caregiver Vnii Mcdonald MD Work Phone: [facility] PAIN MANAGEMENT Start: 06-30-2024 End: 06-30-2024 ambulatory Vini Mcdonald MD Work Phone: Pain Management Comment on above: Botox 07/07 Start: 06-23-2024 End: 06-23-2024 Patient encounter procedure Erika Conway PA-C Work Phone: Pain Management Comment on above: Xrafwdm-Qvjuz-Tknbq disease (Primary Dx); Darin-Danlos syndrome; Fibromyalgia; 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; Myofascial pain syndrome Start: 06-23-2024 End: 06-24-2024 ambulatory ERIKA CONWAY Facility:[id number] Start: 06-16-2024 End: 06-16-2024 Refill Erika Conway [...] above: Fibromyalgia (Primar y Dx); Darin-Danlos syndrome; Ldfysna-Qbzlj-Dpmta disease; 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; 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 Start: 03-13-2024 [...] Refill Request Start: 01-15-2024 Orders Only Erika bernard PA-C Work Phone: Pain Management Comment on [...] syndrom e (Primary Dx); Fibromyalgia; Darin-Danlos syndrome; Ievtfna-Peoqc-Albfk disease; 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; Other chronic pain Start: 11-25-2023 Refill Erika bernard PA-C Work Phone: Pain Management Comment on [...] aura and with status migrainosus; Darin-Danlos syndrome; Qnhmarg-Zsyhe-Mmmxr disease Start: 10-29-2023 Telephone encounter Erika Conway [...] aura and with status migrainosus; Darin-Danlos syndrome; Xrlzhcs-Estha-Dxnhl disease; Chronic pain syndrome; Myofascial pain syndrome Start: 09-03-2023 End: 09-03-2023 Orders Only Dejon Andres MD Work Phone: Pain Management Comment on above: Migraine without sta tus migrainosus, not intractable, unspecified migraine type (Primary Dx) Fibromyalgia [M79.7] Start: 09-02-2023 Refill Erika bernard PA-C Work Phone: Pain Management Comment on above: Refill Request Start: 08-29-2023 End: 08-29-2023 Subsequent hospital visit by physician Dejon Andres MD Work Phone: PAIN KANG PROCEDURES Comment on above: Fibromyalgia [M79.7] Start: 08-12-2023 End: 08-12-2023 Admission to same day surgery center [facility] Start: 08-12-2023 End: 08-12-2023 ambulatory [facility] Work Phone: Start: 08-06-2023 End: 08-06-2023 Subsequent hospital visit by physician Dejon Andres MD Work Phone: PAIN KANG PROCEDURES Comment on above: 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 [G43.711] Start: 07-25-2023 Refill Erika bernard PA-C Work Phone: Pain Management Comment on above: Refill Request Start: 05-05-2023 Refill Morteza Crocker DO Work Phone: Pain Management Comment on above: Refill Request Start: 04-23-2023 Telephone encounter Demian crystal APRN.RELIABILITY ENGINEER Work Phone: Pain Management Comment on above: Other (Virtual V isit Pre Check In) Other (Scheduled with Dr Andres) Start: 03-27-2023 ambulatory Morteza Crocker DO Work Phone: Pain Management Comment on above: Botox Start: 03-19-2023 Telephone encounter Morteza Bernard Derrick DO Work Phone: MR PAIN MANAGEMENT Comment on above: Botox Injection Start: 03-18-2023 End: 03-24-2023 Patient encounter procedure Morteza Meza DO Work Phone: Pain Management Comment on above: Chronic pain syndrom e (Primary Dx); 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; 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; Other chronic pain; Darin-Danlos syndrome; Marfan's syndrome; POTS (postural orthostatic tachycardia syndrome); Fibromyalgia; Migraine variant; Myofascial pain syndrome; Qugtzzh-Psbud-Qxxwv disease; Hunugrq-Svdnn-Vncvs syndrome Start: 02-27-2023 Orders Only Morteza Crocker DO Work Phone: Pain Management Comment on above: Myofascial pain synd dane (Primary Dx) Start: 02-22-2023 End: 02-22-2023 ambulatory Paola Falcon APRN.RELIABILITY ENGINEER Work Phone: Pain [facility] Comment on above: Other chronic pain ( Primary Dx); Fibromyalgia; 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; Darin-Danlos syndrome; Chronic pain syndrome; Pxewjgi-Wbhgx-Garut syndrome; 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; Migraine variant; Myofascial pain syndrome; POTS (postural orthostatic tachycardia syndrome); Marfan's syndrome; Obikwck-Jgpvb-Iaxoc disease Start: 02-22-2023 End: 02-22-2023 Telemedicine consultation with patient Paoal Falcon APRN.CNP Work Phone: [facility] Start: 02-22-2023 Telephone encounter Morteza Meza DO Work Phone: MR PAIN MANAGEMENT Comment on above: Verified procedure o n Feb 27 Start: 02-21-2023 ambulatory [facility] Provider Pain [facility]ag ement Comment on above: SOAPP Start: 02-21-2023 E-mail encounter fro m caregiver [facility] Provider [facility] Start: 02-21-2023 Telephone encounter Paola rodriguez APRN.CNP Work Phone: Pain Management Start: 02-20-2023 Telephone [...] Start: 01-23-2023 End: 01-23-2023 ambulatory Demian Forman APRN.CNP Work Phone: Pain Management Comment on above: Other chronic pain ( Primary Dx); Fibromyalgia; 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; Darin-Danlos syndrome; 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; Chronic pain syndrome Start: 01-23-2023 End: 01-23-2023 Telemedicine consultation with patient Demian Moffettcamacho ADAM Work Phone: [facility] Start: 12-19-2022 End: 12-19-2022 ambulatory Demianmarii Forman APRN.CNP Work Phone: Pain Management Comment on above: Other chronic pain ( Primary Dx); Fibromyalgia; 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; Darin-Danlos syndrome; 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; Chronic pain syndrome Start: 12-19-2022 End: 12-19-2022 Telemedicine consultation with patient Demian Forman APRN.RELIABILITY ENGINEER Work Phone: [facility] Start: 12-13-2022 ambulatory [facility] Provider Pain Manag ement Comment on above: Soapp Start: 12-13-2022 E-mail encounter fro m caregiver [facility] Provider [facility] Start: 11-27-2022 End: 11-27-2022 ambulatory Demian Shravan SKIDWAY WORKER.RELIABILITY ENGINEER Work Phone: Pain Management Comment on above: Other chronic pain ( Primary Dx); Fibromyalgia; 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; Darin-Danlos syndrome; Migraine variant; 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; Chronic pain syndrome Start: 11-27-2022 End: 11-27-2022 Telemedicine consultation with patient Demian Moffetto SKIDWAY WORKER.RELIABILITY ENGINEER Work Phone: [facility] Start: 10-19-2022 ambulatory Demian Shravan SKIDWAY WORKER.RELIABILITY ENGINEER Work Phone: Pain Management Comment on above: Botox Start: 10-19-2022 E-mail encounter fro m caregiver Demian Moffetto SKIDWAY WORKER.RELIABILITY ENGINEER Work Phone: [facility] Start: 10-17-2022 Orders Only Demian Shravan SKIDWAY WORKER.RELIABILITY ENGINEER Work Phone: Pain Management Comment on above: 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 (Primary Dx); Migraine variant Start: 2022 Telephone encounter Demian grayo JOSELIN.RELIABILITY ENGINEER Work Phone: Pain Management Comment on above: Search Manager - O ther Start: 10-10-2022 End: 10-10-2022 ambulatory Demian Shravan SKIDWAY WORKER.RELIABILITY ENGINEER Work Phone: Pain Management Comment on above: Other chronic pain ( Primary Dx); 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; Fibromyalgia; Migraine variant Start: 10-10-2022 End: 10-10-2022 Telemedicine consultation with patient Demian Forman APRN.RELIABILITY ENGINEER Work Phone: [facility] Start: 09-12-2022 End: 09-12-2022 ambulatory Demian Shravan SKIDWAY WORKER.RELIABILITY ENGINEER Work Phone: Pain Management Comment on above: Other chronic pain ( Primary Dx); 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; Fibromyalgia; Darin-Danlos syndrome; Migraine variant; Myofascial pain syndrome; Chronic pain syndrome Start: 09-12-2022 End: 09-12-2022 Telemedicine consultation with patient Demian Forman APRN.RELIABILITY ENGINEER Work Phone: [facility] Start: 08-23-2022 End: 08-23-2022 Subsequent hospital visit by physician Morteza Meza DO Work Phone: MR PAIN MANAGEMENT Comment on above: Myofascial pain synd dane [M79.18] Start: 08-21-2022 End: 08-21-2022 ambulatory Demian Shravan SKIDWAY WORKER.RELIABILITY ENGINEER Work Phone: Pain Management Comment on above: Other chronic pain ( Primary Dx); 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; Fibromyalgia; Migraine variant; Darin-Danlos syndrome; Chronic pain syndrome Start: 08-21-2022 End: 08-21-2022 Telemedicine consultation with patient Demian Forman APRN.RELIABILITY ENGINEER Work Phone: [facility] Start: 08-01-2022 Orders Only Morteza Crocker DO Work Phone: Pain Management Comment on above: Myofascial pain synd dane (Primary Dx) Start: 07-24-2022 Telephone encounter Morteza Meza DO Work Phone: MR PAIN MANAGEMENT Comment on above: Scheduling Procedure Start: 07-10-2022 Orders Only Demian Moffetto SKIDWAY WORKER.RELIABILITY ENGINEER Work Phone: Pain Management Comment on above: 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 (Primary Dx) Start: 07-03-2022 End: 07-03-2022 ambulatory Demian Forman APRN.VISHAL Work Phone: Pain Management Comment on above: Other chronic pain ( Primary Dx); 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; Fibromyalgia; Migraine variant; Darin-Danlos syndrome; Chronic pain syndrome Start: 07-03-2022 End: 07-03-2022 Telemedicine consultation with patient Demian Forman APRN.VISHAL Work Phone: [facility] Start: 06-06-2022 Telephone encounter Demian graycamacho OLIVERA.VISHAL Work Phone: Pain Management Comment on above: Orders Start: 05-07-2022 End: 05-07-2022 ambulatory Demian Forman APRN.VISHAL Work Phone: Pain Management Comment on above: Other chronic pain ( Primary Dx); 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; Fibromyalgia; Migraine variant; Chronic pain syndrome Start: 05-07-2022 End: 05-07-2022 Telemedicine consultation with patient Demian Forman APRN.RELIABILITY ENGINEER Work Phone: [facility] Start: 04-26-2022 Orders Only Morteza Crocker [...] Start: 04-20-2022 End: 04-20-2022 ambulatory Demian Forman APRN.RELIABILITY ENGINEER Work Phone: Pain Management Comment on above: Fibromyalgia (Primar y Dx); 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; Chronic pain syndrome; 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 Start: 04-20-2022 End: 04-20-2022 Telemedicine consultation with patient Demian Forman APRN.VISHAL Work Phone: [facility] Start: 02-23-2022 End: 02-23-2022 ambulatory Demian Forman APRN.VISHAL Work Phone: Pain Management Comment on above: Fibromyalgia (Primar y Dx); 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; Chronic pain syndrome; 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 Start: 02-23-2022 End: 02-23-2022 Telemedicine consultation with patient Demian Forman APRN.RELIABILITY ENGINEER Work Phone: [employer] [facility] Start: 01-30-2022 End: 01-30-2022 Patient encounter procedure Morteza Meza DO Work Phone: Pain Management Comment on above: Wcuafom-Vatne-Xgyhu syndrome (Primary Dx); POTS (postural orthostatic tachycardia syndrome); Myofascial pain syndrome Start: 01-02-2022 End: 01-02-2022 ambulatory Demian Forman SKIDWAY WORKER.VISHAL Work Phone: Pain Management Comment on above: Chronic pain syndrom e (Primary Dx); Migraine variant; Fibromyalgia; Myofascial pain syndrome; 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 Start: 01-02-2022 End: 01-02-2022 Telemedicine consultation with patient Demian Forman APRN.VISHAL Work Phone: [facility] Start: 12-13-2021 Telephone encounter Morteza Meza DO [...] aura and with status migrainosus; Marfan's syndrome; Owzbiow-Qbivo-Hyvgk disease; Darin-Danlos syndrome Start: 11-22-2021 Chart abstracting Rashida Lange APRN.RELIABILITY ENGINEER Work Phone: Pain Management Start: 11-15-2021 End: 11-15-2021 Subsequent hospital visit by physician Demian Forman APRN.RELIABILITY ENGINEER Work Phone: [facility] Comment on [...] Subsequent hospital visit by physician Demian Manning APRN.RELIABILITY ENGINEER Work Phone: [facility] Comment on [...] (>250 nmol/L) Start: 02-23-2025 End: 02-23-2025 Injection single/clinical review specialist trigger point 3/> muscles Vini Mcdonald MD Work Phone: Start: 01-05-2025 End: 01-05-2025 Chemodervate facial/trigem/cerv musc migraine Vini Mcdonald MD Work Phone: Start: 12-31-2024 End: 12-31-2024 Injection single/clinical review specialist trigger point 3/> muscles Vini Mcdonlad MD Work Phone: Start: 12-29-2024 End: 12-29-2024 Injection single/clinical review specialist trigger point 3/> muscles Vini Mcdonald MD Work Phone: Start: 11-05-2024 End: 11-05-2024 Injection single/clinical review specialist trigger point 3/> muscles Vini Mcdonald MD Work Phone: Start: 11-03-2024 End: 11-03-2024 Injection single/clinical review specialist trigger point 3/> muscles Vini Mcdonald MD Work Phone: Start: 09-10-2024 End: 09-10-2024 Injection single/clinical review specialist trigger point 3/> muscles Vini Mcdonald MD Work Phone: Start: 09-08-2024 End: 09-08-2024 Injection single/clinical review specialist trigger point 3/> muscles Vini Mcdonald MD Work Phone: Start: 07-16-2024 End: 07-16-2024 Injection single/clinical review specialist trigger point 3/> muscles Vini Mcdonald MD Work Phone: Start: 07-14-2024 End: 07-14-2024 Injection single/clinical review specialist trigger point 3/> muscles Vini Mcdonald MD Work Phone: Start: 05-19-2024 End: 05-19-2024 Injection single/clinical review specialist trigger point 3/> muscles Vini Mcdonald MD Work Phone: Start: 05-12-2024 End: 05-12-2024 Injection single/clinical review specialist trigger point 3/> muscles Vini Mcdonald MD Work Phone: Start: 03-12-2024 End: 03-12-2024 Injection single/clinical review specialist trigger point 3/> muscles Vini Mcdonald MD Work Phone: Start: 03-10-2024 End: 03-10-2024 Injection single/clinical review specialist trigger point 3/> muscles Vini Mcdonald MD Work Phone: Start: 01-14-2024 End: 01-14-2024 Injection single/clinical review specialist trigger point 3/> muscles Vini Mcdonald MD Work Phone: Start: 01-09-2024 End: 01-09-2024 Injection single/clinical review specialist trigger point 3/> muscles Vini Mcdonald MD Work Phone: Start: 10-24-2023 End: 10-24-2023 Injection single/clinical review specialist trigger point 3/> muscles Dejon Andres MD Work Phone: Start: 10-22-2023 End: 10-22-2023 Injection single/clinical review specialist trigger point 3/> muscles Dejon Andres MD Work Phone: Start: 09-03-2023 End: 09-03-2023 Injection single/clinical review specialist trigger point 3/> muscles Dejon Andres MD Work Phone: Start: 08-29-2023 End: 08-29-2023 Injection single/clinical review specialist trigger point 3/> muscles Dejon Andres MD Work Phone: Start: 08-12-2023 Myringotomy,Tubes (Bilateral) Start: 08-06-2023 End: 08-06-2023 Chemodervate facial/trigem/cerv musc migraine Dejon Andres MD Work Phone: Start: 01-31-2023 End: 01-31-2023 Chemodervate facial/trigem/cerv musc migraine Morteza Meza DO Work Phone: Start: 08-23-2022 End: 08-23-2022 Injection single/clinical review specialist trigger point 3/> muscles Morteza Meza DO Work Phone: Start: 04-18-2017 End: 04-18-2017 Documentation of current medications May Tyrel Start: 04-18-2017 End: 04-18-2017 Follow Up Appt 6 months Anita ward PA-C Work Phone: Start: 04-18-2017 End: 04-18-2017 PFM Anita Corley PA-C Work Phone: Start: 10-11-2016 End: 10-11-2016 Dietary management education, guidance, and counseling Erica Robertsonevangelina Start: 10-11-2016 End: 10-11-2016 Documentation of current medications Ericaparth Robertsonevangelina Start: 10-11-2016 End: 10-11-2016 Follow Up Appt [...] Activity Detail Author Start: 05-11-2025 ambulatory Ambulatory Facility:[facility] Start: 04-26-2025 ambulatory Ambulatory Facility:[facility] Start: 03-19-2025 End: 03-19-2025 Patient encounter procedure Pain Management Comment on above: Follow Up Start: 02-25-2025 End: 02-25-2025 Admission to same day surgery center 02/25/2025 2:45 PM EDT - 02/25/2025 3:00 PM EDT Surgery PAIN KANG PROCEDURES [address] [facility] [place] [address] Vini Mcdonald MD [address] [place] [address] INJECTION TRIGGER POINT THREE OR MORE MUSCLES (mid/lower back x 1 visit) PAIN KANG PROCEDURES Comment on above: INJECTION TRIGGER POINT THREE OR MORE MU SCLES (mid/lower back x 1 visit) Start: 02-25-2025 End: 02-25-2025 Injection single/clinical review specialist trigger point 3/> muscles INJECTION TRIGGER POINT THREE OR MORE MUSCLES Myofascial pain syndrome 02/25/2025 2:45 PM EDT MR PAIN KANG Start: 02-25-2025 Subsequent hospital visit by physician 02/25/2025 2:45 PM EDT Hospital Encounter PAIN KANG PROCEDURES [address] [place] [place] [address] Vini Mcdonald MD [address], [place] [id number] Myofascial pain syndrome [M79.18] PAIN KANG PROCEDURES Comment on above: Myofascial pain syndrome [M79.18] Start: 02-23-2025 End: 02-23-2025 Admission to same day surgery center 02/23/2025 4:00 PM EDT - 02/23/2025 4:30 PM EDT Surgery PAIN KANG PROCEDURES [address] [place] [address] Vini Mcdonald MD [address] [place] [address] INJECTION TRIGGER POINT THREE OR MORE MUSCLES (neck/upper back x 1 visit) PAIN KANG PROCEDURES Comment on above: INJECTION TRIGGER POINT THREE OR MORE MU SCLES (neck/upper back x 1 visit) Start: 02-23-2025 End: 02-23-2025 Injection single/clinical review specialist trigger point 3/> muscles INJECTION TRIGGER POINT THREE OR MORE MUSCLES Myofascial pain syndrome 02/23/2025 4:00 PM EDT MR PAIN KANG Start: 02-23-2025 Subsequent hospital visit by physician 02/23/2025 4:00 PM EDT Hospital Encounter PAIN KANG PROCEDURES [address] [place] [address] Vini Mcdonald MD [address] [place] [address] Myofascial pain syndrome [M79.18] PAIN KANG PROCEDURES Comment on above: Myofascial pain syndrome [M79.18] Start: 02-08-2025 Influenza vaccination [facility] Start: 01-05-2025 End: 01-05-2025 Admission to same day surgery center 01/05/2025 3:30 PM EDT - 01/05/2025 4:00 PM EDT Surgery PAIN KANG PROCEDURES [address] [place] [address] Vini Mcdonald MD [address] [place] [address] CHEMODENERVATION OF MUSCLE(S) INNERVATED BY FACIAL, TRIGEMINAL, CERVICAL SPINAL AND ACCESSORY NERVES, BILATERAL PAIN KANG PROCEDURES Comment on above: CHEMODENERVATION OF MUSCLE(S) INNERVATED BY FACIAL, TRIGEMINAL, CERVICAL SPINAL AND ACCESSORY NERVES, BILATERAL Start: 01-05-2025 Subsequent hospital visit by physician 01/05/2025 3:30 PM EDT Hospital Encounter PAIN KANG PROCEDURES [address] [place] [address] Vini Mcdonald MD [address] [place] [address] 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 [G43.711] PAIN KANG PROCEDURES Comment on above: Intractable chronic migraine without aur a and with status migrainosus [G43.711] Start: 01-05-2025 End: 01-05-2025 Chemodervate facial/trigem/cerv musc migraine MR PAIN KANG Start: 01-05-2025 End: 01-05-2025 Patient encounter procedure 01/05/2025 2:45 PM EDT Office Visit Pain Management [address] [place] [address] Erika Conway PA-C [address] [place] [address] Follow up ok per [facility] Comment on above: Follow up ok gaudencio Diana Start: 12-31-2024 End: 12-31-2024 Admission to same day surgery center 12/31/2024 3:30 PM EDT - 12/31/2024 4:00 PM EDT Surgery PAIN KANG PROCEDURES [address] [place] [address] Vini Mcdonald MD [address] [place] [address] INJECTION TRIGGER POINT THREE OR MORE MUSCLES (mid/lower back) PAIN KANG PROCEDURES Comment on above: INJECTION TRIGGER POINT THREE OR MORE MU SCLES (mid/lower back) Start: 12-31-2024 End: 12-31-2024 Injection single/clinical review specialist trigger point 3/> muscles INJECTION TRIGGER POINT THREE OR MORE MUSCLES Myofascial pain syndrome Fibromyalgia 12/31/2024 3:30 PM EDT MR NICOLASA HUMPHREY Start: 12-31-2024 Subsequent hospital visit by physician 12/31/2024 3:30 PM EDT Hospital Encounter [facility] PROCEDURES [address] [place] [address] Vini Mcdonald MD [address] [place] [address] Myofascial pain syndrome [M79.18], Fibromyalgia [M79.7] [facility] PROCEDURES Comment on above: Myofascial pain syndrome [M79.18], Fibro myalgia [M79.7] Start: 12-29-2024 End: 12-29-2024 Admission to same day surgery center 12/29/2024 3:30 PM EDT - 12/29/2024 4:00 PM EDT Surgery PA[facility] PROCEDURES [address] [place] [address] Vini Mcdonald MD [address] [place] [address] INJECTION TRIGGER POINT THREE OR MORE MUSCLES (neck/upper back) [facility] PROCEDURES Comment on above: INJECTION TRIGGER POINT THREE OR MORE MU SCLES (neck/upper back) Start: 12-29-2024 End: 12-29-2024 Injection single/clinical review specialist trigger point 3/> muscles INJECTION TRIGGER POINT THREE OR MORE MUSCLES Myofascial pain syndrome Fibromyalgia 12/29/2024 3:30 PM EDT MR NICOLASA HUMPHREY Start: 12-29-2024 Subsequent hospital visit by physician 12/29/2024 3:30 PM EDT Hospital Encounter [facility]ANG PROCEDURES [address] [place] [address] Vini Mcdonald MD [address] [place] [address] Myofascial pain syndrome [M79.18], Fibromyalgia [M79.7] [facility] PROCEDURES Comment on above: Myofascial pain syndrome [M79.18], Fibro myalgia [M79.7] Start: 11-05-2024 End: 11-05-2024 Admission to same day surgery center 11/05/2024 3:30 PM EDT - 11/05/2024 4:00 PM EDT Surgery [facility] PROCEDURES [address] [place] [address] Vini Mcdonald MD [address] [place] [address] INJECTION TRIGGER POINT THREE OR MORE MUSCLES PA[facility]ANG PROCEDURES Comment on above: INJECTION TRIGGER POINT THREE OR MORE MU SCLES Start: 11-05-2024 End: 11-05-2024 Injection single/clinical review specialist trigger point 3/> muscles INJECTION TRIGGER POINT THREE OR MORE MUSCLES Myofascial pain syndrome 11/05/2024 3:30 PM EDT MR PAIN KANG Start: 11-05-2024 Subsequent hospital visit by physician 11/05/2024 3:30 PM EDT Hospital Encounter PA[facility] PROCEDURES [address] [place] [address] Vini Mcdonald MD [address] [place] [address] Myofascial pain syndrome [M79.18] [facility] PROCEDURES Comment on above: Myofascial pain syndrome [M79.18] Start: 11-03-2024 End: 11-03-2024 Admission to same day surgery center 11/03/2024 3:30 PM EDT - 11/03/2024 4:00 PM EDT Surgery PAIN [facility]ANG PROCEDURES [address] [place] [address] Vini Mcdonald MD [address] [place] [address] INJECTION TRIGGER POINT THREE OR MORE MUSCLES PAIN [facility]ANG PROCEDURES Comment on above: INJECTION TRIGGER POINT THREE OR MORE MU SCLES Start: 11-03-2024 End: 11-03-2024 Injection single/clinical review specialist trigger point 3/> muscles INJECTION TRIGGER POINT THREE OR MORE MUSCLES Myofascial pain syndrome Fibromyalgia 11/03/2024 3:30 PM EDT MR NICOLASA HUMPHREY Start: 11-03-2024 Subsequent hospital visit by physician 11/03/2024 3:30 PM EDT Hospital Encounter PAIN [facility]ANG PROCEDURES [address] [place] [address] Vini Mcdonald MD [address] [place] [address] Myofascial pain syndrome [M79.18], Fibromyalgia [M79.7] [facility] PROCEDURES Comment on above: Myofascial pain syndrome [M79.18], Fibro myalgia [M79.7] Start: 10-06-2024 End: 10-06-2024 Admission to same day surgery center 10/06/2024 3:30 PM EDT - 10/06/2024 4:00 PM EDT Surgery PAIN [facility]ANG PROCEDURES [address] [place] [address] Vini Mcdonald MD [address] [place] [address] CHEMODENERVATION OF MUSCLE(S) INNERVATED BY FACIAL, TRIGEMINAL, [...] EDT Hospital Encounter PA[facility]ANG PROCEDURES [address] [place] [address] Vini Mcdonald MD [address] [place] [address] Migraine, unspecified, without mention of intractable migraine without mention of status migrainosus [G43.909] [facility] PROCEDURES Comment on above: Migraine, unspecified, without mention o f intractable migraine without mention of status migrainosus [G43.909] Start: 09-18-2024 End: 12-18-2024 TOXASSURE FLEX 23, URINE TOXASSURE FLEX 23, URINE Lab Routine Myofascial pain syndrome Migraine, unspecified, without mention of intractable migraine without mention of status migrainosus Fibromyalgia 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 Expected: 09/18/2024, Expires: 12/18/2024 [facility] Work Phone: Comment on above: Expected: 09/18/2024, Expires: Start: 09-18-2024 End: 09-18-2024 Patient encounter procedure 09/18/2024 1:30 PM EDT Office Visit Pain Management [address] [place] [address] Erika Conway PA-C [address] [place] [address] Follow Up Pain Management Comment on above: Follow Up Start: 09-10-2024 End: 09-10-2024 Admission to same day surgery center 09/10/2024 3:30 PM EDT - 09/10/2024 4:00 PM EDT Surgery PAIN [facility]ANG PROCEDURES [address] [place] [address] Vini Mcdonald MD [address] [facility] [place] [address] INJECTION TRIGGER POINT THREE OR MORE MUSCLES (lower back) PA[facility]ANG PROCEDURES Comment on above: INJECTION TRIGGER POINT THREE OR MORE MU SCLES (lower back) Start: 09-10-2024 End: 09-10-2024 Injection single/clinical review specialist trigger point 3/> muscles INJECTION TRIGGER POINT THREE OR MORE MUSCLES Myofascial pain syndrome 09/10/2024 3:30 PM EDT MR PAIN KANG Start: 09-10-2024 Subsequent hospital visit by physician 09/10/2024 3:30 PM EDT Hospital Encounter PAIN [facility]ANG PROCEDURES [address] [place] [address] Vini Mcdonald MD [address] [place] [address] Myofascial pain syndrome [M79.18] PA[facility]ANG PROCEDURES Comment on above: Myofascial pain syndrome [M79.18] Start: 09-08-2024 End: 09-08-2024 Admission to same day surgery center 09/08/2024 3:30 PM EDT - 09/08/2024 4:00 PM EDT Surgery PAIN [facility]ANG PROCEDURES [address] [place] [address] Vini Mcdonald MD [address] [place] [address] INJECTION TRIGGER POINT THREE OR MORE MUSCLES (neck/upper back) PA[facility]ANG PROCEDURES Comment on above: INJECTION TRIGGER POINT THREE OR MORE MU SCLES (neck/upper back) Start: 09-08-2024 End: 09-08-2024 Injection single/clinical review specialist trigger point 3/> muscles INJECTION TRIGGER POINT THREE OR MORE MUSCLES Myofascial pain syndrome 09/08/2024 3:30 PM EDT MR PAIN KANG Start: 09-08-2024 Subsequent hospital visit by physician 09/08/2024 3:30 PM EDT Hospital Encounter PAIN [facility]ANG PROCEDURES [address] [place] [address] Vini Mcdonald MD [address] [place] [address] Myofascial pain syndrome [M79.18] PA[facility] KANG PROCEDURES Comment on above: Myofascial pain syndrome [M79.18] Start: 07-16-2024 End: 07-16-2024 Admission to same day surgery center 07/16/2024 3:00 PM EST - 07/16/2024 3:30 PM EST Surgery PAIN [facility]ANG PROCEDURES [address] [place] [address] Vini Mcdonald MD [address] [place] [address] INJECTION TRIGGER POINT THREE OR MORE MUSCLES (Lower) PAIN KANG PROCEDURES Comment on above: INJECTION TRIGGER POINT THREE OR MORE MU SCLES (Lower) Start: 07-16-2024 End: 07-16-2024 Injection single/clinical review specialist trigger point 3/> muscles INJECTION TRIGGER POINT THREE OR MORE MUSCLES Myofascial pain syndrome 07/16/2024 3:00 PM EST MR NICOLASA HUMPHREY Start: 07-16-2024 Subsequent hospital visit by physician 07/16/2024 3:00 PM EST Hospital Encounter PAIN [facility]ANG PROCEDURES [address] [place] [address] Vini Mcdonald MD [address] [place] [address] Myofascial pain syndrome [M79.18] PA[facility]ANG PROCEDURES Comment on above: Myofascial pain syndrome [M79.18] Start: 07-14-2024 End: 07-14-2024 Admission to same day surgery center 07/14/2024 3:00 PM EST - 07/14/2024 3:30 PM EST Surgery PAIN [facility]ANG PROCEDURES [address] [place] [address] Vini Mcdonald MD [address] [place] [address] INJECTION TRIGGER POINT THREE OR MORE MUSCLES (upper back) PA[facility]ANG PROCEDURES Comment on above: INJECTION TRIGGER POINT THREE OR MORE MU SCLES (upper back) Start: 07-14-2024 End: 07-14-2024 Injection single/clinical review specialist trigger point 3/> muscles INJECTION TRIGGER POINT THREE OR MORE MUSCLES Myofascial pain syndrome 07/14/2024 3:00 PM EST MR NICOLASA HUMPHREY Start: 07-14-2024 Subsequent hospital visit by physician 07/14/2024 3:00 PM EST Hospital Encounter PA[facility]ANG PROCEDURES [address] [place] [address] Vini Mcdonald MD [address] [place] [address] Myofascial pain syndrome [M79.18] PA[facility] KANG PROCEDURES Comment on above: Myofascial pain syndrome [M79.18] Start: 07-07-2024 End: 07-07-2024 Admission to same day surgery center 07/07/2024 3:30 PM EST - 07/07/2024 4:00 PM EST Surgery PAIN [facility]ANG PROCEDURES [address] [place] [address] Vini Mcdonald MD [address] [facility] [place] [address] CHEMODENERVATION OF MUSCLE (S), MUSCLE (S) INNERVATED BY FACIAL NERVE PAIN [facility]ANG PROCEDURES Comment on above: CHEMODENERVATION OF MUSCLE (S), MUSCLE ( S) INNERVATED BY FACIAL NERVE Start: 07-07-2024 End: 07-07-2024 Chemodnrvtj musc musc innervated facial nrv unil MR PAIN KANG Start: 07-07-2024 Subsequent hospital visit by physician 07/07/2024 3:30 PM EST Hospital Encounter PAIN [facility]ANG PROCEDURES [address] [place] [address] Vini Mcdonald MD [address] [facility] [address] Migraine, unspecified, without mention of intractable migraine without mention of status migrainosus [G43.909] PA[facility] PROCEDURES Comment on above: Migraine, unspecified, without mention o f intractable migraine without mention of status migrainosus [G43.909] Start: 06-23-2024 End: 06-23-2024 Patient encounter procedure 06/23/2024 1:00 PM EST Office Visit Pain Management [address] [place] [address] Erika Conway PA-C [address] [place] [address] Follow Up Pain Management Comment on above: Follow Up Start: 05-19-2024 End: 05-19-2024 Admission to same day surgery center 05/19/2024 3:30 PM EST - 05/19/2024 4:00 PM EST Surgery PAIN [facility] PROCEDURES [address] [place] [address] Vini Mcdonald MD [address] [place] [address] INJECTION TRIGGER POINT THREE OR MORE MUSCLES(low back) PAIN [facility]ANG PROCEDURES Comment on above: INJECTION TRIGGER POINT THREE OR MORE MU SCLES(low back) Start: 05-19-2024 Subsequent hospital visit by physician 05/19/2024 3:30 PM EST Hospital Encounter PAIN [facility]ANG PROCEDURES [address] [place] [address] Vini Mcdonald MD [address] [place] [address] Myofascial pain syndrome [M79.18] PAIN KANG PROCEDURES Comment on above: Myofascial pain syndrome [M79.18] Start: 05-19-2024 End: 05-19-2024 Injection single/clinical review specialist trigger point 3/> muscles MR PAIN KANG Start: 05-14-2024 End: 05-14-2024 Admission to same day surgery center 05/14/2024 3:30 PM EST - 05/14/2024 4:00 PM EST Surgery PAIN [facility]ANG PROCEDURES [address] [place] [address] Vini Mcdonald MD [address] [place] [address] INJECTION TRIGGER POINT THREE OR MORE MUSCLES (upper back and neck) PA[facility]ANG PROCEDURES Comment on above: INJECTION TRIGGER POINT THREE OR MORE MU SCLES (upper back and neck) Start: 05-14-2024 End: 05-14-2024 Injection single/clinical review specialist trigger point 3/> muscles INJECTION TRIGGER POINT THREE OR MORE MUSCLES Myofascial pain syndrome 05/14/2024 3:30 PM EST MR PAIN KANG Start: 05-14-2024 Subsequent hospital visit by physician 05/14/2024 3:30 PM EST Hospital Encounter PAIN KANG PROCEDURES [address] [place] [address] Vini Mcdonald MD [address] [place] [address] Myofascial pain syndrome [M79.18] PAIN KANG PROCEDURES Comment on above: Myofascial pain syndrome [M79.18] Start: 05-12-2024 End: 05-12-2024 Admission to same day surgery center 05/12/2024 3:30 PM EST - 05/12/2024 4:00 PM EST Surgery PAIN KANG PROCEDURES [address] [place] [address] Vini Mcdonald MD [address] [place] [address] INJECTION TRIGGER POINT THREE OR MORE MUSCLES (upper back and neck) PAIN KANG PROCEDURES Comment on above: INJECTION TRIGGER POINT THREE OR MORE MU SCLES (upper back and neck) Start: 05-12-2024 End: 05-12-2024 Injection single/clinical review specialist trigger point 3/> muscles MR PAIN KANG Start: 05-12-2024 Subsequent hospital visit by physician 05/12/2024 3:30 PM EST Hospital Encounter PAIN KANG PROCEDURES [address] [place] [address] Vini Mcdonald MD [address] [place] [address] Myofascial pain syndrome [M79.18] PAIN KANG PROCEDURES Comment on above: Myofascial pain syndrome [M79.18] Start: 04-02-2024 Subsequent hospital visit by physician 04/02/2024 Hospital Encounter [facility] PROCEDURES [address] [facility] [place] [address] Vini Mcdonald MD [address] [place] [address] 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 [G43.711] PAIN KANG PROCEDURES Comment on above: Intractable chronic migraine without aur a and with status migrainosus [G43.711] Start: 03-25-2024 End: 03-25-2024 Patient encounter procedure 03/25/2024 2:30 PM EDT Office Visit Pain Management [address] [place] [address] Erika Conway PA-C [address] [place] [address] Follow Up Pain Management Comment on above: Follow Up Start: 03-25-2024 End: 06-24-2024 TOXASSURE FLEX 23, URINE TOXASSURE FLEX 23, URINE Lab Routine Fibromyalgia 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 [place] [address] INJECTION TRIGGER POINT THREE OR MORE MUSCLES (mid/lower back x 1 visit) PAIN KANG PROCEDURES Comment on above: INJECTION TRIGGER POINT THREE OR MORE MU SCLES (mid/lower back x 1 visit) Start: 03-12-2024 End: 03-12-2024 Injection single/clinical review specialist trigger point 3/> muscles INJECTION TRIGGER [...] PM EDT Surgery PAIN KANG PROCEDURES [address] [place] [address] Vini Mcdonald MD [address] [place] [address] INJECTION TRIGGER POINT THREE OR MORE MUSCLES (neck/upper back) PAIN KANG PROCEDURES Comment on above: INJECTION TRIGGER POINT THREE OR MORE MU SCLES (neck/upper back) Start: 03-10-2024 End: 03-10-2024 Injection single/clinical review specialist trigger point 3/> muscles INJECTION TRIGGER POINT THREE OR MORE MUSCLES Myofascial pain syndrome 03/10/2024 3:30 PM EDT MR PAIN KANG Start: 03-10-2024 Subsequent hospital visit by physician 03/10/2024 3:30 PM EDT Hospital Encounter PAIN KANG PROCEDURES [address] [place] [address] Vini Mcdonald MD [address] [place] [address] Myofascial pain syndrome [M79.18] PAIN KANG PROCEDURES Comment on above: Myofascial pain syndrome [M79.18] Start: 02-25-2024 End: 02-25-2024 Admission to same day surgery center 02/25/2024 2:00 PM EDT - 02/25/2024 2:30 PM EDT Surgery PAIN KANG PROCEDURES [address] [place] [address] Vini Mcdonald MD [address] [place] [address] CHEMODENERVATION OF MUSCLE (S), MUSCLE (S) INNERVATED [...] of status migrainosus 02/25/2024 2:00 PM EDT [facility] Start: 02-25-2024 Subsequent hospital visit by physician 02/25/2024 2:00 PM EDT Hospital Encounter PAIN KANG PROCEDURES [address] [place] [address] Vini Mcdonald MD [address] [place] [address] Intractable chronic migraine without aura and with [...] PM EDT Surgery PAIN KANG PROCEDURES [address] [place] [address] Vini Mcdonald MD [address] [place] [address] CHEMODENERVATION OF MUSCLE (S), MUSCLE (S) INNERVATED [...] EDT Hospital Encounter PAIN KANG PROCEDURES [address] [place] [address] Vini Mcdonald MD [address] [place] [address] 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 [G43.711] PAIN KANG PROCEDURES Comment on above: Intractable chronic migraine without aur a and with status migrainosus [G43.711] Start: 02-09-2024 Covid-19 Vaccine ( season) Covid-19 Vaccine () [facility] Start: 02-09-2024 Covid-19 Vaccine ( season) Covid-19 Vaccine ( season) [facility] Start: 02-09-2024 Influenza vaccination [facility] Start: 01-14-2024 End: 01-14-2024 Admission to same day surgery center 01/14/2024 3:00 PM EDT - 01/14/2024 3:30 PM EDT Surgery PAIN KANG PROCEDURES [address] [place] [address] Vini Mcdonald MD [address] [place] [address] bilateral sternocleidomastoid, splenius capitis, trapezius, and levator scapulae muscles INJECTION TRIGGER POINT THREE OR MORE MUSCLES PAIN KANG PROCEDURES Comment on above: bilateral sternocleidomastoid, splenius capitis, trapezius, and levator scapulae muscles INJECTION TRIGGER POINT THREE OR MORE MUSCLES Start: 01-14-2024 End: 01-14-2024 Injection single/clinical review specialist trigger point 3/> muscles INJECTION TRIGGER POINT THREE OR MORE MUSCLES Fibromyalgia 01/14/2024 3:00 PM EDT MR NICOLASA HUMPHREY Start: 01-14-2024 Subsequent hospital visit by physician 01/14/2024 3:00 PM EDT Hospital Encounter PAIN KANG PROCEDURES [address] [place] [address] Vini Mcdonald MD [address] [place] [address] Fibromyalgia [M79.7] PAIN KANG PROCEDURES Comment on above: Fibromyalgia [M79.7] Start: 12-26-2023 End: 12-26-2023 Admission to same day surgery center PAIN KANG PROCEDURES Comment on above: bilateral sternocleidomastoid, splenius capitis, trapezius, and levator scapulae muscles INJECTION TRIGGER POINT THREE OR MORE MUSCLES Start: 12-26-2023 End: 12-26-2023 Injection single/clinical review specialist trigger point 3/> muscles INJECTION TRIGGER POINT THREE OR MORE MUSCLES Fibromyalgia 12/26/2023 2:30 PM EDT MR NICOLASA HUMPHREY Start: 12-26-2023 Subsequent hospital visit by physician PAIN KANG PROCEDURES Comment on above: Fibromyalgia [M79.7] Start: 12-24-2023 End: 12-24-2023 Admission to same day surgery center PAIN KANG PROCEDURES Comment on above: bilateral quadratus lumborum, latissimus dorsi, erector spinae, and rhomboid muscles INJECTION TRIGGER POINT THREE OR MORE MUSCLES Start: 12-24-2023 End: 12-24-2023 Injection single/clinical review specialist trigger point 3/> muscles INJECTION TRIGGER POINT THREE OR MORE MUSCLES Fibromyalgia 12/24/2023 2:30 PM EDT MR NICOLASA HUMPHREY Start: 12-24-2023 Subsequent hospital visit by physician PAIN KNAG PROCEDURES Comment on above: Fibromyalgia [M79.7] Start: 12-18-2023 End: 12-18-2023 Patient encounter procedure 12/18/2023 2:30 PM EDT Office Visit Pain Management [address] [place] [address] Vini Mcdonald MD [address] [place] [address] FOLLOW UP Pain Management Comment on above: [...] PM EDT Surgery PAIN KANG PROCEDURES [address] [place] [address] Dejon Andres MD [address] [place] [address] CHEMODENERVATION OF MUSCLE(S) INNERVATED BY FACIAL, TRIGEMINAL, [...] EDT Hospital Encounter PAIN KANG PROCEDURES [address] [place] [address] Dejon Andres MD [address] [place] [address] Migraine without status migrainosus, not intractable, unspecified migraine type [G43.909] PAIN KANG PROCEDURES Comment on above: Migraine without status migrainosus, not intractable, unspecified migraine type [G43.909] Start: 10-29-2023 End: 10-29-2023 Patient encounter procedure 10/29/2023 2:45 PM EDT Office Visit Pain Management [address] [place] [place] [address] Erika Conway PA-C [address] [facility] [place] [address] FOLLOW UP Pain Management Comment on above: FOLLOW UP Start: 10-24-2023 End: 10-24-2023 Admission to same day surgery center 10/24/2023 9:30 AM EDT - 10/24/2023 9:45 AM EDT Surgery PAIN [facility]ANG PROCEDURES [address] [facility] [place] [address] Dejon Andres MD [address] [place] [address] INJECTION TRIGGER POINT THREE OR MORE MUSCLES PAIN KANG PROCEDURES Comment on above: INJECTION TRIGGER POINT THREE OR MORE MU SCLES Start: 10-24-2023 End: 10-24-2023 Injection single/clinical review specialist trigger point 3/> muscles INJECTION TRIGGER POINT THREE OR MORE MUSCLES Myofascial pain syndrome 10/24/2023 9:30 AM EDT MR PAIN KANG Start: 10-24-2023 Subsequent hospital visit by physician 10/24/2023 9:30 AM EDT Hospital Encounter PAIN KANG PROCEDURES [address] [place] [address] Dejon Andres MD [address] [place] [address] Myofascial pain syndrome [M79.18] PAIN KANG PROCEDURES Comment on above: Myofascial pain syndrome [M79.18] Start: 08-12-2023 Ambulation without limitation [facility] Start: 08-12-2023 Elevation of head of bed [facility] Start: 08-12-2023 Medical regimen orders management [facility] Start: 08-12-2023 Medication education [facility] Start: 08-12-2023 Patient discharge [facility] Start: 08-12-2023 Procedure discontinued [facility] Start: 08-12-2023 Taking patient vital signs [facility] Start: 08-12-2023 Vital signs measurements [facility] Start: 06-10-2023 Behavioral Health Screening Behavioral Health Screening [facility] Start: 06-10-2023 Depression Assessment Depression Assessment [facility] Start: 02-08-2023 Covid-19 Vaccine () Covid-19 Vaccine () [facility] Start: 02-08-2023 Influenza vaccination [facility] Start: 01-30-2023 End: 04-01-2023 TOXASSURE FLEX 23, URINE TOXASSURE FLEX 23, URINE Lab Routine Other chronic pain 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 Expected: 01/30/2023, Expires: 04/01/2023 [facility] Work Phone: Comment on above: Expected: 01/30/2023, Expires: Start: 10-23-2022 End: 12-23-2022 TOXASSURE FLEX 23, URINE TOXASSURE FLEX 23, URINE Lab Routine 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 Expected: 10/23/2022, Expires: 12/23/2022 [facility] Work Phone: Comment on above: Expected: 10/23/2022, Expires: 3 Start: 2022 COLOGUARD (FIT-DNA) COLOGUARD (FIT-DNA) [facility] Start: 2022 Colonoscopy COLONOSCOPY [facility] Start: 2022 COLORECTAL CANCER SCREENING COLORECTAL CANCER SCREENING [facility] Start: [address] COLONOGRAPHY [facility] Start: 2022 DIABETES SCREEN DIABETES SCREEN [facility] Start: 2022 Diabetes Screening Diabetes Screening [facility] Start: 2022 FECAL OCCULT BLOOD FECAL OCCULT BLOOD [facility] Start: 2022 Lipid 1996 panel - Serum or Plasma Lipid Screening [facility] Start: 2022 Lipid panel Lipid Screening [facility] Start: 2022 LIPID SCREEN LIPID SCREEN [facility] Start: 2022 Screening for malignant neoplasm of colon [facility] Start: 2022 SIGMOIDOSCOPY SIGMOIDOSCOPY [facility] Start: 07-10-2022 End: 09-09-2022 TOXASSURE FLEX 23, URINE TOXASSURE FLEX 23, URINE Lab Routine 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 Expected: 07/10/2022, Expires: 09/09/2022 [facility] Work Phone: Comment on above: Expected: 07/10/2022, Expires: 3 Start: 06-10-2022 DEPRESSION ASSESSMENT DEPRESSION ASSESSMENT [facility] Start: 02-08-2022 Influenza vaccination [facility] Start: 01-30-2022 End: 04-01-2022 DRUG SCR TOXASURE DRUG SCR TOXASURE Lab Routine Zpcnjop-Ziyzx-Cgruk syndrome POTS (postural orthostatic tachycardia syndrome) Myofascial pain syndrome Expected: 01/30/2022, Expires: 04/01/2022 [facility] Work Phone: Comment on above: Expected: 01/30/2022, Expires: 2 Start: 06-26-2021 COVID-19 VACCINE (4 - Booster for Pfizer series) COVID-19 VACCINE (4 - Booster for Pfizer series) [facility] Start: 06-26-2021 COVID-19 VACCINE (4 - Pfizer series) COVID-19 VACCINE (4 - Pfizer series) [facility] Start: 06-10-2021 DEPRESSION ASSESSMENT DEPRESSION ASSESSMENT [facility] Start: 10-23-2017 End: 10-23-2017 Patient encounter procedure Appointment [facility] Work Phone: Start: 2017 Mammography [facility] Start: 2017 Screening for malignant neoplasm of breast Mammogram Screening [facility] Start: 04-18-2017 End: 04-18-2017 Patient encounter procedure Appointment [facility] Work Phone: Start: 04-18-2017 End: 04-18-2017 Echocardiography Echocardiogram (complete) [facility] Work Phone: Start: 04-18-2017 End: 04-18-2017 Follow Up Appt 6 months Follow Up Appt 6 months [facility] Work Phone: Start: 04-18-2017 End: 04-18-2017 PFM PFM [facility] Work Phone: Start: 10-11-2016 End: 10-11-2016 Follow Up Appt 6 months Follow Up Appt 6 months [facility] Work Phone: Start: 10-11-2016 End: 10-11-2016 MMM MMM [facility] Work Phone: Start: 01-09-2016 End: 01-09-2016 Ecg routine ecg w/least 12 lds w/i&r EKG (In office) [facility] Work Phone: Start: 01-09-2016 End: 01-09-2016 Echocardiography Echocardiogram (complete) [facility] Work Phone: Start: 01-09-2016 End: 01-09-2016 Follow Up Appt 9 months Follow Up Appt 9 months [facility] Work Phone: Start: 01-09-2016 End: 01-09-2016 PFM PFM [facility] Work Phone: Start: 06-24-2015 End: 06-24-2015 Echocardiography Echocardiogram (complete) [facility] Work Phone: Start: 06-24-2015 End: 06-24-2015 Follow Up Appt 6 months Follow Up Appt 6 months [facility] Work Phone: Start: 06-24-2015 End: 06-24-2015 MMM MMM [facility] Work Phone: Start: 07-07-2014 End: 07-07-2014 Ecg routine ecg w/least 12 lds w/i&r EKG (In office) [facility] Work Phone: Start: 07-07-2014 End: 07-07-2014 Follow Up Appt 6 months Follow Up Appt 6 months [facility] Work Phone: Start: 07-07-2014 End: 07-07-2014 PFM PFM [facility] Work Phone: Start: 05-10-2014 End: 12-30-2013 Echocardiography Echocardiogram (complete) [facility] Work Phone: Start: 12-30-2013 End: 12-30-2013 Follow Up Appt 6 months Follow Up Appt 6 months [facility] Work Phone: Start: 12-30-2013 End: 12-30-2013 MMM MMM [facility] Work Phone: Start: 02-19-2013 End: 02-19-2013 Echocardiography Echocardiogram (complete) [facility] Work Phone: Start: 02-19-2013 End: 02-19-2013 Follow Up Appt 6 months Follow Up Appt 6 months [facility] Work Phone: Start: 02-19-2013 End: 02-19-2013 PFM PFM [facility] Work Phone: Start: 08-14-2012 End: 02-10-2013 Ecg routine ecg w/least 12 lds w/i&r EKG (In office) [facility] Work Phone: Start: 08-14-2012 End: 08-14-2012 Follow Up Appt 6 months Follow Up Appt 6 months [facility] Work Phone: Start: 08-14-2012 End: 02-10-2013 MMM MMM [facility] Work Phone: Start: 02-01-2012 End: 02-01-2012 Ecg routine ecg w/least 12 lds w/i&r EKG (In office) [facility] Work Phone: Start: 02-01-2012 End: 02-01-2012 Echocardiography Echocardiogram (complete) [facility] Work Phone: Start: 02-01-2012 End: 02-10-2013 Follow Up Appt 6 months Follow Up Appt 6 months [facility] Work Phone: Start: 06-29-2011 End: 06-29-2011 Follow Up Appt 6 months Follow Up Appt 6 months [facility] Work Phone: Start: 10-17-2007 HPV TESTING HPV TESTING [facility] Start: 10-17-2007 Screening for malignant neoplasm of cervix HPV Testing [facility] Start: 01-08-2002 Medicare Annual Wellness Visit Medicare Annual Wellness Visit [facility] Start: 1998 PAP TESTING PAP TESTING [facility] Start: 1998 Screening for malignant neoplasm of cervix [facility] Start: 1996 Hepatitis B Vaccine (1 of 3 - 19+ 3-dose series) Hepatitis B Vaccine (1 of 3 - 19+ 3-dose series) [facility] Start: 1996 Urine microalbumin profile [facility] Start: 10-17-1995 Anxiety Screening Anxiety Screening [facility] Start: 10-17-1995 Depression Screening Depression Screening [facility] Start: 10-17-1995 HEPATITIS C SCREENING HEPATITIS C SCREENING [facility] Start: 10-17-1995 Hepatitis C screening Hepatitis C Screening [facility] Start: 10-17-1995 HIV SCREENING HIV SCREENING [facility] Start: 10-17-1995 HIV screening HIV Screening [facility] Start: 1989 Adult depression screening assessment DEPRESSION SCREENING [facility] Start: 1982 COVID-19 VACCINE (#1) COVID-19 VACCINE (#1) [facility] Start: 1982 COVID-19 VACCINE (1) COVID-19 VACCINE (1) [facility] Start: 1977 HEPATITIS B (1 of 3 - 3-dose series) HEPATITIS B (1 of 3 - 3-dose series) [facility] Start: 1977 Hepatitis B Vaccine (1 of 3 - 3-dose series) Hepatitis B Vaccine (1 of 3 - 3-dose series) [facility] Chemodnrvtj musc mus c innervated facial nrv unil CHEMODENERVATION OF MUSCLE (S), MUSCLE (S) INNERVATED BY FACIAL NERVE 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 Migraine, unspecified, without mention of intractable migraine without mention of status migrainosus [facility] Chemodnrvtj musc mus c innervated facial nrv unil CHEMODENERVATION OF MUSCLE (S), MUSCLE (S) INNERVATED BY FACIAL NERVE 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 MR PAIN KANG Injection single/clinical review specialist trigger point 3/> muscles INJECTION TRIGGER POINT THREE OR MORE MUSCLES Myofascial pain syndrome MR PAIN KANG Patient referral [facility] Work Phone: [facility] Immunizations Immunization Date Immunization Notes Care Provider [facility] 05-01-2021 COVID-19 original vaccine, age 12+ yr, monovalent (PFIZER-BIONTECH - PURPLE TOP) Demian Shravan 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 WORKER.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 ENGINEER Work Phone: [facility] 09-07-2020 COVID-19 original vaccine, age 12+ yr, monovalent (PFIZER-BIONTECH - PURPLE TOP) Demian Shravan SKIDWAY WORKER.RELIABILITY ENGINEER Work Phone: [facility] 08-17-2020 COVID-19 original vaccine, age 12+ yr, monovalent (PFIZER-BIONTECH - PURPLE TOP) Demian Shravan SKIDWAY WORKER.RELIABILITY ENGINEER Work Phone: [facility] 03-10-2020 influenza virus vacc ine, unspecified formulation Erika Conway PA-C Work Phone: [facility] Payers Date Payer Category Payer Medicaid [employer] [id number] 2019-Present [phone] [address] [place] [address] Medicaid [id number] 2019 Medicaid [id number] 2013 Unknown [id number] Self-pay [id number] 2002 Medicaid [id number] 2002 Medicare MEDICARE MEDICAR E A AND B [id number] 2002-Present [phone] [address] [id number] Medicare [id number] 2002 Medicare [id number] 2001 Medicare MEDICARE MEDICAR E A AND B [id number] 2001-Present [phone] [place] [id number] Medicare [id number] 2001 Medicare [id number] Unknown [id number] Unknown [id number] Unknown [id number] Unknown [id number] Unknown [id number] Unknown [id number] Unknown [id number] Unknown [id number] Social History Date Type Detail Facility Start: 01-30-2022 End: 12-23-2023 Tobacco smoking status NHIS Never smoked tobacco [facility] Start: 04-24-2016 End: 09-18-2024 Alcohol intake Current drinker of alcohol (finding) [facility] Start: 1975 [facility] Start: 1975 [facility] Start: 11-18-2021 End: 04-25-2022 Exposure to SARS-CoV-2 (event) Not sure [facility] Start: 01-30-2022 Tobacco use and exposure Smokeless tobacco non-user [facility] Start: 10-10-2022 End: 11-27-2022 History of Social function [facility] Start: 10-10-2022 End: 11-27-2022 Tobacco use panel [facility] Start: 05-11-2012 National Score (1-100), lower number is lower risk 66 [facility] Start: 11-23-2021 Gender identity Identifies as female gender (finding) [facility] Start: 11-23-2021 Sexual orientation Heterosexual (ollie emmanuel) [facility] Start: 07-31-2023 Tobacco smoking stat us NHIS Unknown if ever smoked [facility] Start: 01-05-2025 Alcoholic beverage intake Ex-drinker (finding) [facility] NEGATED: Highlighted row [facility] Medical Equipment Procedure Code Equipment Code Equipment Origin al Text Equipment Identifier Dates Tympanostomy tube [id number] FDA Start: 08-12-2023 Tympanostomy tube [id number] FDA Start: 08-12-2023 Goals Date Patient Goal Desired Activity /State Functional Status Date Assessment Result Facility 09-29-2014 Are you deaf, or do you have serious difficulty hearing No 09/29/2014 10:36 AM Octavia Bermudez RN No [facility] 09-29-2014 Are you blind, or do you have serious difficulty seeing, even when wearing glasses No 09/29/2014 10:36 AM Octavia Bermudez RN No [facility] 09-29-2014 Do you have serious difficulty walking or climbing stairs No 09/29/2014 10:36 AM Octavia Bermudez RN No [facility] 09-29-2014 Do you have difficul ty dressing or bathing No 09/29/2014 10:36 AM Octavia Bermudez RN No [facility] 09-29-2014 Because of a physica l, mental, or emotional condition, do you have difficulty doing errands alone such as visiting a physician's office or shopping No 09/29/2014 10:36 AM Octavia Bermudez RN No [facility] Mental Status Date Assessment Result Facility 08-12-2023 Cognitive function Touch/Shaking [facility] Work Phone: 09-29-2014 Because of a physica l, mental, or emotional condition, do you have serious difficulty concentrating, remembering, or making decisions No 09/29/2014 10:36 AM Octavia Bermudez RN [facility] Clinical Notes 08-09-2008 to 03-19-2025 Operative Report - Vini Mcdonald MD - 02/23/2025 4:27 PM EDTOperative Report - Vini Mcdonald MD - 02/23/2025 4:27 PM DAVIDTGail Crooks MA - 02/23/2025 3:52 PM EDTPatient Instructions Note Date & Type Note Facility 03-19-2025 Note HNO ID: [id number] Author: ERIKA CONWAY PA-C Service: ? Author Type: Physician Spring Encaser Type: Progress Notes Filed: 03/19/2025 14:52 Note [...] Acute gastritis without mention of hemorrhage CHARCOT Pyhhwgz-Dcwiq-wgkid disease, deafness, and intellectual disability syndrome (HCC) [...] 80 Resp 17 Ht 170.2 cm (5' 7) Wt 47.2 kg (104 lb) LMP (more content not included)... [facility] 03-19-2025 Note HNO ID: [id number] Author: GAIL CROOKS MA Service: ? Author Type: Business Database Analyst Type: Progress Notes Filed: 03/19/2025 14:52 Note Text: Room 2 Follow up: [facility] 02-23-2025 Surgery Surgical operation note Summary: TPI [...] 0.25% bupivacaine; distributed ~equally at each site. [facility] Work Phone: 02-23-2025 Surgical operatio n [...] at each site. documented in this encounter [facility] 02-23-2025 Nurse Note TPI Injections Pt does not take any blood thinners Pt is not diabetic Pt is not on any antibiotics Pt did not take any sedation Gail Crooks MA February 23, 2025 3:53 PM [facility] 02-23-2025 Nurse Note TPI Injections Pt does not take any blood thinners Pt is not diabetic Pt is not on any antibiotics Pt did not take any sedation Gail Crooks MA February 23, 2025 3:53 PM documented in this encounter [facility] 02-12-2025 Telephone encounter Note Pt requesting TPI, please advise if you will order. Roxana Byrne RN February 12, 2025 3:07 PM [facility] 02-12-2025 Miscellaneous Notes Pt requesting TPI, please advise if you will order. Roxana Byrne RN February 12, 2025 3:07 PM documented in this encounter [facility] 02-05-2025 Telephone encounter Note The following [...] as tolerated. Authorizing Provider: ERIKA CONWAY PA-C [facility] 02-05-2025 Miscellaneous Notes The following approved [...] For clinical consultation, please call . ==== [facility] Urine Drug Screen and Benzo Confirm Urine Panel: No results found for: UQCANN, UQBNZL, PHU6IOD, UQAMPH, UQMAMP, UQBUPRE, UQNORBUP, UQMTHD, UQEDDP, UQTRAM, UQDTRM, UQFNTL, UQNFTL, UQCODE, UQMORP, UQDCDN, UQHCOD, UQOXYC, UQHMOR, UQOXYM, UQCREA, UQPH, UQSPGR, UQOXID, UQSPQ Last Opioid agreement effective date: 09/18/2024 Recent Visits Date Type Provider Dept 01/05/25 Office Visit Erika Conway PA-C [facility] 09/18/24 Office Visit Erika Conway PA-C [facility] 06/23/24 Office Visit Erika Conway PA-C [facility] 03/25/24 Office Visit Erika Conway PA-C [facility] 12/18/23 Office Visit Vini Mcdonald MD [facility] 10/29/23 Office Visit Erika Conway PA-C [facility] 09/19/23 Office Visit Erika Conway PA-C [facility] Showing recent visits within past 540 days with a meds authorizing provider and meeting all other requirements Future Appointments Date Type Provider Dept 03/19/25 Appointment Erika Conway PA-C [facility] Showing future appointments within next 150 days with a meds authorizing provider and meeting all other requirements Please review and advise. Sharyn Page MA documented in this encounter [facility] 02-05-2025 Telephone encounter Note Patient phones [...] For clinical consultation, please call . ==== [facility] Urine Drug Screen and Benzo Confirm Urine Panel: No results found for: UQCANN, UQBNZL, ZMK4IGF, UQAMPH, UQMAMP, UQBUPRE, UQNORBUP, UQMTHD, UQEDDP, UQTRAM, UQDTRM, UQFNTL, UQNFTL, UQCODE, UQMORP, UQDCDN, UQHCOD, UQOXYC, UQHMOR, UQOXYM, UQCREA, UQPH, UQSPGR, UQOXID, UQSPQ Last Opioid agreement effective date: 09/18/2024 Recent Visits Date Type Provider Dept 01/05/25 Office Visit Erika Conway PA-C [facility] 09/18/24 Office Visit Erika Conway PA-C [facility] 06/23/24 Office Visit Erika Conway PA-C [facility] 03/25/24 Office Visit Erika Conway PA-C [facility] 12/18/23 Office Visit Vini Mcdonald MD [facility] 10/29/23 Office Visit Erika Conway PA-C [facility] 09/19/23 Office Visit Erika Conway PA-C [facility] Showing recent visits within past 540 days with a meds authorizing provider and meeting all other requirements Future Appointments Date Type Provider Dept 03/19/25 Appointment Erika Conway PA-C [facility] Showing future appointments within next 150 days with a meds authorizing provider and meeting all other requirements Please review and advise. Sharyn Page MA [facility] 01-05-2025 Surgery Surgical operation note Summary: [...] Botox Injection PROCEDURE: Botox injection CPT code: 31877 PREPROCEDURE DIAGNOSIS: Migraine headache POSTPROCEDURE DIAGNOSIS: same [...] was prepped with alcohol. BOTOX Lot Number: [id number] BOTOX was reconstituted to a concentration of 5 U/0.1mL. The following injections were made using a 30G needle: 5 Botox units to the procerus muscle 5 Botox units to the right bulk plant supervisor supercilii muscle 5 Botox units to the left bulk plant supervisor supercilii muscle 30 Botox units to the [...] the procedure well with no complications noted. [facility] Work Phone: 01-05-2025 Surgical operatio n [...] Botox Injection PROCEDURE: Botox injection CPT code: 26988 PREPROCEDURE DIAGNOSIS: Migraine headache POSTPROCEDURE DIAGNOSIS: same [...] was prepped with alcohol. BOTOX Lot Number: [id number] BOTOX was reconstituted to a concentration of 5 U/0.1mL. The following injections were made using a 30G needle: 5 Botox units to the procerus muscle 5 Botox units to the right bulk plant supervisor supercilii muscle 5 Botox units to the left bulk plant supervisor supercilii muscle 30 Botox units to the [...] no complications noted. documented in this encounter [facility] 01-05-2025 Instructions Erika Conway PA-C - [...] Vini Mcdonald MD documented in this encounter [facility] 01-05-2025 Note HNO ID: [id number] Author: ERIKA CONWAY PA-C Service: ? Author Type: Physician Spring Encaser Type: Progress Notes Filed: 01/05/2025 15:17 Note [...] Acute gastritis without mention of hemorrhage CHARCOT Qlwoatj-Zarjv-cffeh disease, deafness, and intellectual disability syndrome (HCC) [...] Ear: Hearing n (more content not included)... [facility] 01-05-2025 History of Presen t illness Narrative [...] Acute gastritis without mention of hemorrhage CHARCOT Vhfmghc-Ihoun-qkjhj disease, deafness, and intellectual disability syndrome (HCC) [...] content normal. Judgment: Judgment normal. ASSESSMENT/PLAN: 1. 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 [facility] Work Phone: 12-31-2024 Surgical operatio n [...] at each site. documented in this encounter [facility] 12-31-2024 Note HNO ID: [id number] Author: KIMBERLI FREEDMAN RN Service: ? Author Type: Registered Nurse Type: Nursing Progress Note Filed: 12/31/2024 15:10 Note Text: Patient denies blood thinners [facility] 12-31-2024 Nurse Note Patient denies blood thinners [facility] 12-31-2024 Nurse Note Patient denies blood thinners documented in this encounter [facility] 12-30-2024 Telephone encounter Note 1 [facility] 12-30-2024 Miscellaneous Notes 1 documented in this encounter [facility] 12-29-2024 Surgery Surgical operation note Summary: [...] 0.25% bupivacaine; distributed ~equally at each site. [facility] Work Phone: 12-29-2024 Surgical operatio n note Summary: TPI PATIENT: Capri Aguilar SURGEON: Primary: Vini Mcdonald MD : 1975 DATE OF SURGERY: December 29, 2024 PRE-OP Diagnosis: Myofascial pain syndrome [M79.18] Fibromyalgia [M79.7] POST-OP Diagnosis: Same Procedure: Procedure(s): INJECTION TRIGGER POINT THREE OR MORE MUSCLES (neck/upper back) Anesthesia Type: Local The following procedure was performed in the office today: Trigger Point Injection(s): (21482) -Informed consent was obtained and all patient [...] at each site. documented in this encounter [facility] 12-18-2024 Telephone encounter Note I sent [...] Byrne RN December 18, 2024 3:44 PM [facility] 12-18-2024 Miscellaneous Notes I sent this [...] 2024 12:53 PM documented in this encounter [facility] 12-18-2024 Telephone encounter Note Lebron, Please review the note from Capri and advise as to how to proceed. Thanks, Ana King December 18, 2024 12:53 PM [facility] 12-18-2024 Telephone encounter Note Items addressed in this encounter: Telephone Encounter LVM to schedule appt 01/05-01/08 with Erika Conway NP Pain at a 245pm slot Able to close encounter. Sharyn Page MA December 18, 2024 11:03 AM 11:03 AM [facility] 12-18-2024 Miscellaneous Notes Items addressed in this encounter: Telephone Encounter LVM to schedule appt 01/05-01/08 with Erika Conway NP Pain at a 245pm slot Able to close encounter. Sharyn Page MA December 18, 2024 11:03 AM 11:03 AM documented in this encounter [facility] 12-18-2024 Telephone encounter Note There is currently no one scheduled at 245 on 01/05, 01/06, or 01/08 [facility] 12-18-2024 Miscellaneous Notes There is currently [...] For clinical consultation, please call . ==== [facility] Urine Drug Screen and Benzo Confirm Urine Panel: No results found for: UQCANN, UQBNZL, ZNS0YVY, UQAMPH, UQMAMP, UQBUPRE, UQNORBUP, UQMTHD, UQEDDP, UQTRAM, UQDTRM, UQFNTL, UQNFTL, UQCODE, UQMORP, UQDCDN, UQHCOD, UQOXYC, UQHMOR, UQOXYM, UQCREA, UQPH, UQSPGR, UQOXID, UQSPQ Last Opioid agreement effective date: 09/18/2024 Recent Visits Date Type Provider Dept 09/18/24 Office Visit Erika Conway PA-C [facility] 06/23/24 Office Visit Erika Conway PA-C [facility] 03/25/24 Office Visit Erika Conway PA-C [facility] 12/18/23 Office Visit Vini Mcdonald MD [facility] 10/29/23 Office Visit Erika Conway PA-C [facility] 09/19/23 Office Visit Erika Conway PA-C [facility] 08/05/23 Office Visit Erika Conway PA-C [facility] Showing recent visits within past 540 days with a meds authorizing provider and meeting all other requirements Future Appointments Date Type Provider Dept 03/19/25 Appointment Erika Conway PA-C [facility] Showing future appointments within next 150 days with a meds authorizing provider and meeting all other requirements Please review and advise. Sharyn Page MA documented in this encounter [facility] 12-18-2024 Telephone encounter Note There are no 245 slots available. [facility] 12-18-2024 Telephone encounter Note We need to get her an earlier appointment scheduled. Her next FU isn't until March and we are not going to be able to send any further scripts until she is seen. She can be added at 245 pm if needed. [facility] 12-18-2024 Telephone encounter Note The following [...] 21, 2024. Authorizing Provider: ERIKA CONWAY PA-C [facility] 12-18-2024 Telephone encounter Note Patient phones [...] For clinical consultation, please call . ==== [facility] Urine Drug Screen and Benzo Confirm Urine Panel: No results found for: UQCANN, UQBNZL, AUT3AGP, UQAMPH, UQMAMP, UQBUPRE, UQNORBUP, UQMTHD, UQEDDP, UQTRAM, UQDTRM, UQFNTL, UQNFTL, UQCODE, UQMORP, UQDCDN, UQHCOD, UQOXYC, UQHMOR, UQOXYM, UQCREA, UQPH, UQSPGR, UQOXID, UQSPQ Last Opioid agreement effective date: 09/18/2024 Recent Visits Date Type Provider Dept 09/18/24 Office Visit Erika Conway PA-C [facility] 06/23/24 Office Visit Erika Conway PA-C [facility] 03/25/24 Office Visit Erika Conway PA-C [facility] 12/18/23 Office Visit Vini Mcdonald MD [facility] 10/29/23 Office Visit Erika Conway PA-C [facility] 09/19/23 Office Visit Erika Conway PA-C [facility] 08/05/23 Office Visit Erika Conway PA-C [facility] Showing recent visits within past 540 days with a meds authorizing provider and meeting all other requirements Future Appointments Date Type Provider Dept 03/19/25 Appointment Eriak Conway PA-C [facility] Showing future appointments within next 150 days with a meds authorizing provider and meeting all other requirements Please review and advise. Sharyn Page MA [facility] 12-09-2024 Telephone encounter Note All three orders are in and should be fine to be scheduled on those dates if the openings are available. [facility] 12-09-2024 Miscellaneous Notes All three orders are in and should be fine to be scheduled on those dates if the openings are available. Capri Diana called and would like to schedule 12/29 TPI's neck, 12/31 TPI's lumbar and Botox 01/05 all at 3:30 PM. Please advise. Ana Harmon December 09, 2024 3:14 PM documented in this encounter [facility] 12-09-2024 Telephone encounter Note Capri Diana called and would like to schedule 12/29 TPI's neck, 12/31 TPI's lumbar and Botox 01/05 all at 3:30 PM. Please advise. Ana Harmon December 09, 2024 3:14 PM [facility] 11-19-2024 Telephone encounter Note The following [...] as tolerated. Authorizing Provider: ERIKA CONWAY PA-C [facility] 11-19-2024 Miscellaneous Notes The following approved [...] For clinical consultation, please call . ==== [facility] Urine Drug Screen and Benzo Confirm Urine Panel: No results found for: UQCANN, UQBNZL, [id number], UQAMPH, UQMAMP, UQBUPRE, UQNORBUP, UQMTHD, UQEDDP, UQTRAM, UQDTRM, UQFNTL, UQNFTL, UQCODE, UQMORP, UQDCDN, UQHCOD, UQOXYC, UQHMOR, UQOXYM, UQCREA, UQPH, UQSPGR, UQOXID, UQSPQ Last Opioid agreement effective date: 09/18/2024 Recent Visits Date Type Provider Dept 09/18/24 Office Visit Erika Conway PA-C [facility] 06/23/24 Office Visit Erika Conway PA-C [facility] 03/25/24 Office Visit Erika Conway PA-C [facility] 12/18/23 Office Visit Vini Mcdonald MD [facility] 10/29/23 Office Visit Erika Conway PA-C [facility] 09/19/23 Office Visit Erika Conway PA-C [facility] 08/05/23 Office Visit Erika Conway PA-C [facility] Showing recent visits within past 540 days with a meds authorizing provider and meeting all other requirements Future Appointments Date Type Provider Dept 03/19/25 Appointment rEika Conway PA-C [facility] Showing future appointments within next 150 days with a meds authorizing provider and meeting all other requirements Please review and advise. Izzy Reddy MA documented in this encounter [facility] 11-19-2024 Telephone encounter Note Patient phones [...] For clinical consultation, please call . ==== [facility] Urine Drug Screen and Benzo Confirm Urine Panel: No results found for: UQCANN, UQBNZL, JTI5JSC, UQAMPH, UQMAMP, UQBUPRE, UQNORBUP, UQMTHD, UQEDDP, UQTRAM, UQDTRM, UQFNTL, UQNFTL, UQCODE, UQMORP, UQDCDN, UQHCOD, UQOXYC, UQHMOR, UQOXYM, UQCREA, UQPH, UQSPGR, UQOXID, UQSPQ Last Opioid agreement effective date: 09/18/2024 Recent Visits Date Type Provider Dept 09/18/24 Office Visit Erika Conway PA-C [facility] 06/23/24 Office Visit Erika Conway PA-C [facility] 03/25/24 Office Visit Erika Conway PA-C [facility] 12/18/23 Office Visit Vini Mcdonald MD [facility] 10/29/23 Office Visit Man Erika Lynch PA-C [facility] 09/19/23 Office Visit Man Erika Lynch PA-C [facility] 08/05/23 Office Visit Conway Erika Lynch PA-C [facility] Showing recent visits within past 540 days with a meds authorizing provider and meeting all other requirements Future Appointments Date Type Provider Dept 03/19/25 Appointment Conway Erika Lynch PA-C [facility] Showing future appointments within next 150 days with a meds authorizing provider and meeting all other requirements Please review and advise. Izzy Reddy MA [facility] 11-05-2024 Surgery Surgical operation note Summary: TPI PATIENT: Capri Aguilar SURGEON: Primary: Vini Mcdonald MD : 1975 DATE OF SURGERY: November 05, 2024 PRE-OP Diagnosis: Myofascial pain syndrome [M79.18] POST-OP Diagnosis: Same Procedure: Procedure(s): INJECTION TRIGGER POINT THREE OR MORE MUSCLES Anesthesia Type: Local The following procedure was performed in the office today: Trigger Point Injection(s): (40824) -Informed consent was obtained and all patient [...] 0.25% bupivacaine; distributed equally at each site. [facility] Work Phone: 11-05-2024 Surgical operatio n note Summary: TPI PATIENT: Capri Aguilar SURGEON: Primary: Vini Mcdonald MD : 1975 DATE OF SURGERY: November 05, 2024 PRE-OP Diagnosis: Myofascial pain syndrome [M79.18] POST-OP Diagnosis: Same Procedure: Procedure(s): INJECTION TRIGGER POINT THREE OR MORE MUSCLES Anesthesia Type: Local The following procedure was performed in the office today: Trigger Point Injection(s): (61740) -Informed consent was obtained and all patient [...] at each site. documented in this encounter [facility] 11-05-2024 Note HNO ID: [id number] Author: KIMBERLI FREEDMAN RN Service: ? Author Type: Registered Nurse Type: Nursing Progress Note Filed: 11/05/2024 15:18 Note Text: Patient denies blood thinners [facility] 11-05-2024 Nurse Note Patient denies blood thinners [facility] 11-05-2024 Nurse Note Patient denies blood thinners documented in this encounter [facility] 11-03-2024 Surgery Surgical operation note Summary: TPI PATIENT: Capri Aguilar SURGEON: Primary: Vini Mcdonald MD : 1975 DATE OF SURGERY: November 03, 2024 PRE-OP Diagnosis: Myofascial pain syndrome [M79.18] Fibromyalgia [M79.7] POST-OP Diagnosis: Same Procedure: Procedure(s): INJECTION TRIGGER POINT THREE OR MORE MUSCLES Anesthesia Type: Local The following procedure was performed in the office today: Trigger Point Injection(s): (31707) -Informed consent was obtained and all patient [...] 0.25% bupivacaine; distributed equally at each site. [facility] Work Phone: 11-03-2024 Surgical operatio n note Summary: TPI PATIENT: Capri Aguilar SURGEON: Primary: Vini Mcdonald MD : 1975 DATE OF SURGERY: November 03, 2024 PRE-OP Diagnosis: Myofascial pain syndrome [M79.18] Fibromyalgia [M79.7] POST-OP Diagnosis: Same Procedure: Procedure(s): INJECTION TRIGGER POINT THREE OR MORE MUSCLES Anesthesia Type: Local The following procedure was performed in the office today: Trigger Point Injection(s): (57041) -Informed consent was obtained and all patient [...] at each site. documented in this encounter [facility] 10-06-2024 Surgery Surgical operation note Summary: Botox Injections PATIENT: Capri Aguilar SURGEON: Primary: Vini Mcodnald MD : 1975 DATE OF SURGERY: October 06, 2024 PRE-OP Diagnosis: Migraine, unspecified, without mention of intractable migraine without mention of status migrainosus [G43.909] POST-OP Diagnosis: Same Procedure: Procedure(s): CHEMODENERVATION OF MUSCLE(S) INNERVATED BY FACIAL, TRIGEMINAL, CERVICAL SPINAL AND ACCESSORY NERVES, BILATERAL Anesthesia Type: Local The following procedure was performed in the office today: Botox Injection PROCEDURE: Botox injection CPT code: 82503 PREPROCEDURE DIAGNOSIS: Migraine headache POSTPROCEDURE DIAGNOSIS: same [...] was prepped with alcohol. BOTOX Lot Number: [id number] BOTOX was reconstituted to a concentration of 5 U/0.1mL. The following injections were made using a 30G needle: 5 Botox units to the procerus muscle 5 Botox units to the right bulk plant supervisor supercilii muscle 5 Botox units to the left bulk plant supervisor supercilii muscle 30 Botox units to the [...] the procedure well with no complications noted. [facility] Work Phone: 10-06-2024 Miscellaneous Notes Summary: [...] Botox Injection PROCEDURE: Botox injection CPT code: 73979 PREPROCEDURE DIAGNOSIS: Migraine headache POSTPROCEDURE DIAGNOSIS: same [...] was prepped with alcohol. BOTOX Lot Number: [id number] BOTOX was reconstituted to a concentration of 5 U/0.1mL. The following injections were made using a 30G needle: 5 Botox units to the procerus muscle 5 Botox units to the right bulk plant supervisor supercilii muscle 5 Botox units to the left bulk plant supervisor supercilii muscle 30 Botox units to the [...] no complications noted. documented in this encounter [facility] 09-23-2024 Progress note Formatting of t his note might be different from the original. The patient's most recent drug screen has been reviewed and is appropriate and consistent with current therapy. Erika Conway PA-C September 23, 2024 9:38 AM [facility] 09-23-2024 Miscellaneous Notes The patient's most recent drug screen has been reviewed and is appropriate and consistent with current therapy. Erika Conway PA-C September 23, 2024 9:38 AM documented in this encounter [facility] 09-18-2024 Instructions Erika Conway PA-C - [...] Vini Mcdonald MD documented in this encounter [facility] 09-18-2024 Note HNO ID: [id number] Author: ERIKA CONWAY PA-C Service: ? Author Type: Physician Spring Encaser Type: Progress Notes Filed: 09/18/2024 14:14 Note Text: This note was created using [employer]. Subjective Capri Aguilar is a 48 year [...] Acute gastritis without mention of hemorrhage CHARCOT Frxgbbt-Vphve-yrvdn disease, deafness, and intellectual disability syndrome (HCC) [...] LMP (LMP Unkn (more content not included)... [facility] 09-18-2024 History of Presen t illness Narrative This note was created using [employer]. Subjective Capri Aguilar is a 48 year [...] Acute gastritis without mention of hemorrhage CHARCOT Gjtqffs-Lycwc-qjuul disease, deafness, and intellectual disability syndrome (HCC) [...] ICD9: 756.83, ICD10: Q79.60 (primary diagnosis) 2. Gmszqyy-Yitzw-Ndgiq disease - ICD9: 356.1, ICD10: G60.0 - [...] M79.18 - TOXASSURE FLEX 23, URINE 7. 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 - ICD9: [...] Last uds-09/18/24 09/10/24-TPI documented in this encounter [facility] 09-18-2024 Note HNO ID: [id number] Author: ANTONELLA VALLADARES RN Service: ? Author Type: Registered Nurse Type: Progress Notes Filed: 09/18/2024 14:14 Note Text: Oxycodone am Med helps pain Denies side effects Last uds-09/18/24 09/10/24-TPI [facility] 09-11-2024 Telephone encounter Note The following approved [...] as tolerated. Authorizing Provider: ERIKA CONWAY PA-C [facility] 09-11-2024 Miscellaneous Notes The following approved [...] Panel: No results found for: UQCANN, UQBNZL, HND2PMS, UQAMPH, UQMAMP, UQBUPRE, UQNORBUP, UQMTHD, UQEDDP, UQTRAM, [...] Alisa Lion RN documented in this encounter [facility] 09-11-2024 Telephone encounter Note Patient phones [...] Panel: No results found for: UQCANN, UQBNZL, [id number], UQAMPH, UQMAMP, UQBUPRE, UQNORBUP, UQMTHD, UQEDDP, UQTRAM, [...] Please review and advise. Alisa Lion RN [facility] 09-10-2024 Surgery Surgical operation note Summary: [...] 0.25% bupivacaine; distributed equally at each site. [facility] Work Phone: 09-10-2024 Surgical operatio n [...] at each site. documented in this encounter [facility] 09-10-2024 Note HNO ID: [id number] Author: KIMBERLI FREEDMAN RN Service: ? Author Type: Registered Nurse Type: Nursing Progress Note Filed: 09/10/2024 15:07 Note Text: Patient denies any blood thinners [facility] 09-10-2024 Nurse Note Patient denies any blood thinners [facility] 09-10-2024 Nurse Note Patient denies any blood thinners documented in this encounter [facility] 09-08-2024 Surgery Surgical operation note Summary: [...] 0.25% bupivacaine; distributed equally at each site. [facility] Work Phone: 09-08-2024 Surgical operatio n [...] at each site. documented in this encounter [facility] 08-14-2024 Telephone encounter Note The orders are in for both sets of trigger points, she just needs scheduled please. [facility] 08-14-2024 Miscellaneous Notes The orders are in for both sets of trigger points, she just needs scheduled please. Dr Mcdonald, This message was received today. Please advise. Thank you, Ana King August 14, 2024 1:21 PM Ana: Please contact pt as to below requested procedure scheduling request. Thank you, Suzette Alcala RN August 14, 2024 1:18 PM documented in this encounter [facility] 08-14-[address] Mcdonald, This message was received today. Please advise. Thank you, Ana King August 14, 2024 1:21 PM [facility] 08-14-2024 Telephone encounter Note Ana: Please contact pt as to below requested procedure scheduling request. Thank you, Suzette Alcala RN August 14, 2024 1:18 PM [facility] 08-13-2024 Telephone encounter Note The following [...] as tolerated. Authorizing Provider: ERIKA CONWAY PA-C [facility] 08-13-2024 Miscellaneous Notes The following approved [...] Panel: No results found for: UQCANN, UQBNZL, KCR6VEF, UQAMPH, UQMAMP, UQBUPRE, UQNORBUP, UQMTHD, UQEDDP, UQTRAM, [...] Allie Bass RN documented in this encounter [facility] 08-13-2024 Telephone encounter Note Patient phones [...] Panel: No results found for: UQCANN, UQBNZL, [id number], UQAMPH, UQMAMP, UQBUPRE, UQNORBUP, UQMTHD, UQEDDP, UQTRAM, [...] Please review and advise. Allie Bass RN [facility] 07-16-2024 Surgery Surgical operation note Summary: TPI PATIENT: Capri Aguilar SURGEON: Primary: Vini Mcdonald MD : 1975 DATE OF SURGERY: July 16, 2024 PRE-OP Diagnosis: Myofascial pain syndrome [M79.18] POST-OP Diagnosis: Same Procedure: Procedure(s): INJECTION TRIGGER POINT THREE OR MORE MUSCLES (Lower) Anesthesia Type: Local The following procedure was performed in the office today: Trigger Point Injection(s): (52769) -Informed consent was obtained and all patient [...] 0.25% bupivacaine; distributed equally at each site. [facility] Work Phone: 07-16-2024 Surgical operatio n note Summary: TPI PATIENT: Capri Aguilar SURGEON: Primary: Vini Mcdonald MD : 1975 DATE OF SURGERY: July 16, 2024 PRE-OP Diagnosis: Myofascial pain syndrome [M79.18] POST-OP Diagnosis: Same Procedure: Procedure(s): INJECTION TRIGGER POINT THREE OR MORE MUSCLES (Lower) Anesthesia Type: Local The following procedure was performed in the office today: Trigger Point Injection(s): (59639) -Informed consent was obtained and all patient [...] at each site. documented in this encounter [facility] 07-16-2024 Note HNO ID: [id number] Author: KIMBERLI FREEDMAN RN Service: ? Author Type: Registered Nurse Type: Nursing Progress Note Filed: 07/16/2024 14:57 Note Text: Patient denies blood thinners [facility] 07-16-2024 Nurse Note Patient denies blood thinners [facility] 07-16-2024 Nurse Note Patient denies blood thinners documented in this encounter [facility] 07-14-2024 Surgery Surgical operation note Summary: TPI PATIENT: Capri Aguilar SURGEON: Primary: Vini Mcdonald MD : 1975 DATE OF SURGERY: July 14, 2024 PRE-OP Diagnosis: Myofascial pain syndrome [M79.18] POST-OP Diagnosis: Same Procedure: Procedure(s): INJECTION TRIGGER POINT THREE OR MORE MUSCLES (upper back) Anesthesia Type: Local The following procedure was performed in the office today: Trigger Point Injection(s): (44569) -Informed consent was obtained and all patient [...] 0.25% bupivacaine; distributed equally at each site. [facility] Work Phone: 07-14-2024 Surgical operatio n [...] at each site. documented in this encounter [facility] 07-07-2024 Surgery Surgical operation note Summary: Botox Injections PATIENT: Capri Lynch Aguilar [...] Botox Injection PROCEDURE: Botox injection CPT code: 83482 PREPROCEDURE DIAGNOSIS: Migraine headache POSTPROCEDURE DIAGNOSIS: same ANESTHESIA: none PROCEDURE REPORT: The risks and benefits of the procedure were explained to the patient and all questions were answered. The patient gave consent to proceed with the procedure. The skin was prepped with alcohol. BOTOX Lot Number: [id number] BOTOX was reconstituted to a concentration of 5 U/0.1mL. The following injections were made using a 30G needle: 5 Botox units to the procerus muscle 5 Botox units to the right bulk plant supervisor supercilii muscle 5 Botox units to the left bulk plant supervisor supercilii muscle 20 Botox units to the [...] the procedure well with no complications noted. [facility] Work Phone: 07-07-2024 Surgical operatio n [...] Botox Injection PROCEDURE: Botox injection CPT code: 37220 PREPROCEDURE DIAGNOSIS: Migraine headache POSTPROCEDURE DIAGNOSIS: same ANESTHESIA: none PROCEDURE REPORT: The risks and benefits of the procedure were explained to the patient and all questions were answered. The patient gave consent to proceed with the procedure. The skin was prepped with alcohol. BOTOX Lot Number: [id number] BOTOX was reconstituted to a concentration of 5 U/0.1mL. The following injections were made using a 30G needle: 5 Botox units to the procerus muscle 5 Botox units to the right bulk plant supervisor supercilii muscle 5 Botox units to the left bulk plant supervisor supercilii muscle 20 Botox units to the [...] no complications noted. documented in this encounter [facility] 06-23-2024 Instructions Erika Conway PA-C - [...] Vini Mcdonald MD documented in this encounter [facility] 06-23-2024 Note HNO ID: [id number] Author: ERIKA CONWAY PA-C Service: ? Author Type: Physician Spring Encaser Type: Progress Notes Filed: 06/23/2024 13:47 Note [...] Acute gastritis without mention of hemorrhage CHARCOT Ginodah-Hkvdt-ldcum disease, deafness, and intellectual disability syndrome Eczema [...] Judgment normal. Assessment and Plan ASSESSMENT/PLAN: 1. 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 [facility] 06-23-2024 History of Presen t illness Narrative This note was created using [employer]. Subjective Capri Aguilar is a 48 year [...] Acute gastritis without mention of hemorrhage CHARCOT Nakqwbo-Fwrxq-pnwdz disease, deafness, and intellectual disability syndrome Eczema [...] Judgment normal. Assessment and Plan ASSESSMENT/PLAN: 1. Bmhnodl-Zbxfn-Hfkbn disease - ICD9: 356.1, ICD10: G60.0 (primary [...] Erika Conway PA-C documented in this encounter [facility] 06-16-2024 Telephone encounter Note The following [...] 18, 2024. Authorizing Provider: ERIKA CONWAY PA-C [facility] 06-16-2024 Miscellaneous Notes The following approved [...] Panel: No results found for: UQCANN, UQBNZL, [id number], UQAMPH, UQMAMP, UQBUPRE, UQNORBUP, UQMTHD, UQEDDP, UQTRAM, UQDTRM, UQFNTL, UQNFTL, UQCODE, UQMORP, UQDCDN, UQHCOD, UQOXYC, UQHMOR, UQOXYM, UQCREA, UQPH, UQSPGR, UQOXID, UQSPQ @FLOW([id number])@ Lab Results Component Value Date SUMM FINAL [...] Zonia Desai RN documented in this encounter [facility] 06-16-2024 Telephone encounter Note Patient phones [...] Panel: No results found for: UQCANN, UQBNZL, EGR1UAM, UQAMPH, UQMAMP, UQBUPRE, UQNORBUP, UQMTHD, UQEDDP, UQTRAM, UQDTRM, UQFNTL, UQNFTL, UQCODE, UQMORP, UQDCDN, UQHCOD, UQOXYC, UQHMOR, UQOXYM, UQCREA, UQPH, UQSPGR, UQOXID, UQSPQ @FLOW([id number])@ Lab Results Component Value Date SUMM FINAL [...] Please review and advise. Zonia Desai RN [facility] 05-19-2024 Note HNO ID: [id number] Author: VINI MCDONALD MD Service: ? Author [...] been a mainstay of this patient's care. [facility] 05-19-2024 History of Presen t illness Narrative [...] this patient's care. documented in this encounter [facility] 05-19-2024 Surgery Surgical operation note Summary: TPI PATIENT: Capri Aguilar SURGEON: Primary: Vini Mcdonald MD : 1975 DATE OF SURGERY: May 19, 2024 PRE-OP Diagnosis: Myofascial pain syndrome [M79.18] POST-OP Diagnosis: Same Procedure: Procedure(s): INJECTION TRIGGER POINT THREE OR MORE MUSCLES(low back) Anesthesia Type: Local The following procedure was performed in the office today: Trigger Point Injection(s): (12621) -Informed consent was obtained and all patient [...] 0.25% bupivacaine; distributed equally at each site. [facility] Work Phone: 05-19-2024 Surgical operatio n note Summary: TPI PATIENT: Capri Aguilar SURGEON: Primary: Vini Mcdonald MD : 1975 DATE OF SURGERY: May 19, 2024 PRE-OP Diagnosis: Myofascial pain syndrome [M79.18] POST-OP Diagnosis: Same Procedure: Procedure(s): INJECTION TRIGGER POINT THREE OR MORE MUSCLES(low back) Anesthesia Type: Local The following procedure was performed in the office today: Trigger Point Injection(s): (93484) -Informed consent was obtained and all patient [...] at each site. documented in this encounter [facility] 05-18-2024 Telephone encounter Note The following [...] 19, 2024. Authorizing Provider: ERIKA CONWAY PA-C [facility] 05-18-2024 Miscellaneous Notes The following approved [...] Panel: No results found for: UQCANN, UQBNZL, XOZ1MBY, UQAMPH, UQMAMP, UQBUPRE, UQNORBUP, UQMTHD, UQEDDP, UQTRAM, UQDTRM, UQFNTL, UQNFTL, UQCODE, UQMORP, UQDCDN, UQHCOD, UQOXYC, UQHMOR, UQOXYM, UQCREA, UQPH, UQSPGR, UQOXID, UQSPQ @FLOW([id number])@ Lab Results Component Value Date SUMM FINAL [...] Allie Bass RN documented in this encounter [facility] 05-18-2024 Telephone encounter Note Patient phones [...] Panel: No results found for: UQCANN, UQBNZL, ZPH7PUS, UQAMPH, UQMAMP, UQBUPRE, UQNORBUP, UQMTHD, UQEDDP, UQTRAM, UQDTRM, UQFNTL, UQNFTL, UQCODE, UQMORP, UQDCDN, UQHCOD, UQOXYC, UQHMOR, UQOXYM, UQCREA, UQPH, UQSPGR, UQOXID, UQSPQ @FLOW([id number])@ Lab Results Component Value Date SUMM FINAL [...] Please review and advise. Allie Bass RN [facility] 05-12-2024 Surgery Surgical operation note Summary: [...] 0.25% bupivacaine; distributed equally at each site. [facility] Work Phone: 05-12-2024 Surgical operatio n note [...] at each site. documented in this encounter [facility] 04-17-2024 Telephone encounter Note The following [...] 24, 2024. Authorizing Provider: ERIKA CONWAY PA-C [facility] 04-17-2024 Miscellaneous Notes The following approved [...] Panel: No results found for: UQCANN, UQBNZL, [id number], UQAMPH, UQMAMP, UQBUPRE, UQNORBUP, UQMTHD, UQEDDP, UQTRAM, UQDTRM, UQFNTL, UQNFTL, UQCODE, UQMORP, UQDCDN, UQHCOD, UQOXYC, UQHMOR, UQOXYM, UQCREA, UQPH, UQSPGR, UQOXID, UQSPQ @FLOW([id number])@ Lab Results Component Value Date SUMM FINAL [...] Zonia Desai RN documented in this encounter [facility] 04-17-2024 Telephone encounter Note Patient phones [...] Panel: No results found for: UQCANN, UQBNZL, OPI9YTT, UQAMPH, UQMAMP, UQBUPRE, UQNORBUP, UQMTHD, UQEDDP, UQTRAM, UQDTRM, UQFNTL, UQNFTL, UQCODE, UQMORP, UQDCDN, UQHCOD, UQOXYC, UQHMOR, UQOXYM, UQCREA, UQPH, UQSPGR, UQOXID, UQSPQ @FLOW([id number])@ Lab Results Component Value Date SUMM FINAL [...] Please review and advise. Zonia Desai RN [facility] 04-02-2024 Surgery Surgical operation note Summary: Botox [...] Botox Injection PROCEDURE: Botox injection CPT code: 96883 PREPROCEDURE DIAGNOSIS: Migraine headache POSTPROCEDURE DIAGNOSIS: same ANESTHESIA: none PROCEDURE REPORT: The risks and benefits of the procedure were explained to the patient and all questions were answered. The patient gave consent to proceed with the procedure. The skin was prepped with alcohol. BOTOX Lot Number: [id number], [id number] BOTOX was reconstituted to a concentration of 5 U/0.1mL. The following injections were made using a 30G needle: 5 Botox units to the procerus muscle 5 Botox units to the right bulk plant supervisor supercilii muscle 5 Botox units to the left bulk plant supervisor supercilii muscle 20 Botox units to the [...] the procedure well with no complications noted. [facility] Work Phone: 04-02-2024 Surgical operatio n [...] Botox Injection PROCEDURE: Botox injection CPT code: 06392 PREPROCEDURE DIAGNOSIS: Migraine headache POSTPROCEDURE DIAGNOSIS: same ANESTHESIA: none PROCEDURE REPORT: The risks and benefits of the procedure were explained to the patient and all questions were answered. The patient gave consent to proceed with the procedure. The skin was prepped with alcohol. BOTOX Lot Number: [id number], [id number] BOTOX was reconstituted to a concentration of 5 U/0.1mL. The following injections were made using a 30G needle: 5 Botox units to the procerus muscle 5 Botox units to the right bulk plant supervisor supercilii muscle 5 Botox units to the left bulk plant supervisor supercilii muscle 20 Botox units to the [...] no complications noted. documented in this encounter [facility] 03-25-2024 Instructions Erika Conway PA-C - [...] Vini Mcdonald MD documented in this encounter [facility] 03-25-2024 History of Presen t illness Narrative This note was created using [employer]. Subjective Capri Aguilar is a 48 year [...] Acute gastritis without mention of hemorrhage CHARCOT Klmtfvu-Odlzu-ftbmk disease, deafness, and intellectual disability syndrome Eczema [...] syndrome - ICD9: 756.83, ICD10: Q79.60 3. 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 - ICD9: [...] Erika Conway PA-C documented in this encounter [facility] 03-25-2024 Nurse Note Oxycodone 1pm Med helps pain Denies side effects Last uds-03/25/24 03/13/24-TPI [facility] 03-25-2024 Nurse Note Oxycodone 1pm Med helps pain Denies side effects Last uds-03/25/24 03/13/24-TPI documented in this encounter [facility] 03-16-2024 Telephone encounter Note Order created for TPI visits x2 [facility] 03-16-2024 Miscellaneous Notes Order created for TPI visits x2 Dr Mcdonald, Link spoke to Capri and [...] 19 at 3:30 documented in this encounter [facility] 03-13-[address] Harry [...] x 1 visit) May 19 at 3:30 [facility] 03-12-2024 Surgery Surgical operation note Summary: TPI low back PATIENT: Capri Aguilar [...] 0.25% bupivacaine; distributed equally at each site. [facility] Work Phone: 03-12-2024 Surgical operatio n note Summary: TPI low back PATIENT: Capri Aguilar [...] at each site. documented in this encounter [facility] 03-10-2024 Surgery Surgical operation note Summary: [...] 0.25% bupivacaine; distributed equally at each site. [facility] Work Phone: 03-10-2024 Surgical operatio n note Summary: TPI PATIENT: Capri Aguilar SURGEON: Primary: Vini Mcdonald MD : 1975 DATE OF SURGERY: March 10, 2024 PRE-OP Diagnosis: Myofascial pain syndrome [M79.18] POST-OP Diagnosis: Same Procedure: Procedure(s): INJECTION TRIGGER POINT THREE OR MORE MUSCLES (neck/upper back) Anesthesia Type: Local The following procedure was performed in the office today: Trigger Point Injection(s): (39902) -Informed consent was obtained and all patient [...] at each site. documented in this encounter [facility] 02-24-2024 Telephone encounter Note I spoke [...] is unacceptable and that no one in [facility] must have migraines. I apologized again. Ana King February 24, 2024 10:56 AM [facility] 02-24-2024 Miscellaneous Notes I spoke to [...] is unacceptable and that no one in [facility] must have migraines. I apologized again. Ana King February 24, 2024 10:56 AM documented in this encounter [facility] 02-21-2024 Miscellaneous Notes The following approved [...] Panel: No results found for: UQCANN, UQBNZL, QIB9CCD, UQAMPH, UQMAMP, UQBUPRE, UQNORBUP, UQMTHD, UQEDDP, UQTRAM, UQDTRM, UQFNTL, UQNFTL, UQCODE, UQMORP, UQDCDN, UQHCOD, UQOXYC, UQHMOR, UQOXYM, UQCREA, UQPH, UQSPGR, UQOXID, UQSPQ @FLOW([id number])@ Lab Results Component Value Date SUMM FINAL [...] Zonia Desai RN documented in this encounter [facility] 02-21-2024 Telephone encounter Note The following [...] 25 days Authorizing Provider: ERIKA CONWAY PA-C [facility] 02-21-2024 Telephone encounter Note Patient phones [...] Panel: No results found for: UQCANN, UQBNZL, GZQ8LRO, UQAMPH, UQMAMP, UQBUPRE, UQNORBUP, UQMTHD, UQEDDP, UQTRAM, UQDTRM, UQFNTL, UQNFTL, UQCODE, UQMORP, UQDCDN, UQHCOD, UQOXYC, UQHMOR, UQOXYM, UQCREA, UQPH, UQSPGR, UQOXID, UQSPQ @FLOW([id number])@ Lab Results Component Value Date SUMM FINAL [...] Please review and advise. Zonia Desai RN [facility] 02-11-2024 Telephone encounter Note LM on VM for pt to reschedule botox injections on 02/24- we have 1,130,2 or 230 available. Zonia Desai RN February 11, 2024 3:20 PM [facility] 02-11-2024 Miscellaneous Notes LM on VM for pt to reschedule botox injections on 02/24- we have 1,130,2 or 230 available. Zonia Desai RN February 11, 2024 3:20 PM documented in this encounter [facility] 01-17-2024 Telephone encounter Note Patient phones [...] Panel: No results found for: UQCANN, UQBNZL, CLE9XFB, UQAMPH, UQMAMP, UQBUPRE, UQNORBUP, UQMTHD, UQEDDP, UQTRAM, UQDTRM, UQFNTL, UQNFTL, UQCODE, UQMORP, UQDCDN, UQHCOD, UQOXYC, UQHMOR, UQOXYM, UQCREA, UQPH, UQSPGR, UQOXID, UQSPQ @FLOW([id number])@ Lab Results Component Value Date SUMM FINAL [...] Please review and advise. Suzette Alcala RN [facility] 01-17-2024 Miscellaneous Notes Patient phones requesting [...] Panel: No results found for: UQCANN, UQBNZL, PDR4YUN, UQAMPH, UQMAMP, UQBUPRE, UQNORBUP, UQMTHD, UQEDDP, UQTRAM, UQDTRM, UQFNTL, UQNFTL, UQCODE, UQMORP, UQDCDN, UQHCOD, UQOXYC, UQHMOR, UQOXYM, UQCREA, UQPH, UQSPGR, UQOXID, UQSPQ @FLOW([id number])@ Lab Results Component Value Date SUMM FINAL [...] Suzette Alcala RN documented in this encounter [facility] 01-14-2024 Surgery Surgical operation note PATIENT: Capri Aguilar SURGEON: Primary: Vini Mcdonald MD : 1975 DATE OF SURGERY: January 14, 2024 PRE-OP Diagnosis: Fibromyalgia [M79.7] POST-OP Diagnosis: Same Procedure: Procedure(s): bilateral sternocleidomastoid, splenius capitis, trapezius, and levator scapulae muscles INJECTION TRIGGER POINT THREE OR MORE MUSCLES Anesthesia Type: Local The following procedure was performed in the office today: Trigger Point Injection(s): (94977) -Informed consent was obtained and all patient [...] 0.25% bupivacaine; distributed equally at each site. [facility] Work Phone: 01-14-2024 Surgical operatio n note PATIENT: Capri R Lauren SURGEON: Primary: Vini Mcdonald MD : 1975 DATE OF SURGERY: January 14, 2024 PRE-OP Diagnosis: Fibromyalgia [M79.7] POST-OP Diagnosis: Same Procedure: Procedure(s): bilateral sternocleidomastoid, splenius capitis, trapezius, and levator scapulae muscles INJECTION TRIGGER POINT THREE OR MORE MUSCLES Anesthesia Type: Local The following procedure was performed in the office today: Trigger Point Injection(s): (64761) -Informed consent was obtained and all patient [...] at each site. documented in this encounter [facility] 01-09-2024 Surgery Surgical operation note PATIENT: Capri Aguilar [...] 0.25% bupivacaine; distributed equally at each site. [facility] Work Phone: 01-09-2024 Surgical operatio n [...] at each site. 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 Continue liquid oxycodone for chronic abdominal pain, whole body pain 2. Continue with trigger point injections 3. Will schedule Botox for February 4. Continue activity as tolerated 5. Follow-up 3 months 6. Continue care with all other providers documented in this encounter [facility] 12-18-2023 Nurse Note Oxycodone Med helps pain Denies side effects Last uds-08/05/23 11/14/23-Botox [facility] 12-18-2023 Nurse Note Oxycodone Med helps pain Denies side effects Last uds-08/05/23 11/14/23-Botox documented in this encounter [facility] 11-25-2023 Telephone encounter Note The following [...] 25 days Authorizing Provider: ERIKA CONWAY PA-C [facility] 11-25-2023 Miscellaneous Notes The following approved [...] Panel: No results found for: UQCANN, UQBNZL, QXD1YJH, UQAMPH, UQMAMP, UQBUPRE, UQNORBUP, UQMTHD, UQEDDP, UQTRAM, UQDTRM, UQFNTL, UQNFTL, UQCODE, UQMORP, UQDCDN, UQHCOD, UQOXYC, UQHMOR, UQOXYM, UQCREA, UQPH, UQSPGR, UQOXID, UQSPQ @FLOW([id number])@ Lab Results Component Value Date SUMM FINAL [...] Allie Bass RN documented in this encounter [facility] 11-25-2023 Telephone encounter Note Patient phones [...] Panel: No results found for: UQCANN, UQBNZL, VHQ0WXV, UQAMPH, UQMAMP, UQBUPRE, UQNORBUP, UQMTHD, UQEDDP, UQTRAM, UQDTRM, UQFNTL, UQNFTL, UQCODE, UQMORP, UQDCDN, UQHCOD, UQOXYC, UQHMOR, UQOXYM, UQCREA, UQPH, UQSPGR, UQOXID, UQSPQ @FLOW([id number])@ Lab Results Component Value Date SUMM FINAL [...] Please review and advise. Allie Bass RN [facility] 11-14-2023 Hospital Discharg e instructions Dejon Andres MD - 11/14/2023 1:23 PM EDT Post-procedure [...] normally would, but you do need a mobile lounge driver. Additional Instructions: documented in this encounter [facility] 11-14-2023 Surgery Surgical operation note Summary: Botox injection Botox Injection PROCEDURE: Botox injection CPT code: 42854 PREPROCEDURE DIAGNOSIS: Migraine headache POSTPROCEDURE DIAGNOSIS: same ANESTHESIA: none PROCEDURE REPORT: The risks and benefits of the procedure were explained to the patient and all questions were answered. The patient gave consent to proceed with the procedure. The skin was prepped with alcohol. BOTOX Lot Number: [id number] BOTOX was reconstituted to a concentration of 2.5 U/0.1mL. The following injections were made using a 30G needle: 15 Botox units to the procerus muscle 15 Botox units to the right bulk plant supervisor supercilii muscle 15 Botox units to the left bulk plant supervisor supercilii muscle 30 Botox units to the [...] DATE: November 14, 2023 TIME: 1:22 PM [facility] 11-14-2023 Surgical operatio n note Summary: Botox injection Botox Injection PROCEDURE: Botox injection CPT code: 43241 PREPROCEDURE DIAGNOSIS: Migraine headache POSTPROCEDURE DIAGNOSIS: same ANESTHESIA: none PROCEDURE REPORT: The risks and benefits of the procedure were explained to the patient and all questions were answered. The patient gave consent to proceed with the procedure. The skin was prepped with alcohol. BOTOX Lot Number: [id number] BOTOX was reconstituted to a concentration of 2.5 U/0.1mL. The following injections were made using a 30G needle: 15 Botox units to the procerus muscle 15 Botox units to the right bulk plant supervisor supercilii muscle 15 Botox units to the left bulk plant supervisor supercilii muscle 30 Botox units to the [...] TIME: 1:22 PM documented in this encounter [facility] 11-14-2023 Telephone encounter Note Blayne reached [facility] Rep, authorization has date span and updated notes. Pt called @ 11am to keep appt today. [facility] 11-14-2023 Miscellaneous Notes Blayne reached [facility] Rep, authorization has date span and [...] documented. [facility] documented in this encounter [facility] 11-14-2023 Telephone encounter Note Request sent 11/12 to [facility] for date ext.. No response, emailed this am to see if possible for pt to have this done today. [facility] 11-13-2023 Telephone encounter Note Signed. [facility] 11-13-2023 Telephone encounter Note Approval noted through email, but only for DOS 11/12/23. Needs new order to be R/S and for DOS extension. [facility] 10-30-2023 Telephone encounter Note Received letter for botox denial from Medicare due to lack of information. Was seen in office yesterday, new information documented. [facility] 10-29-2023 Instructions Erika Conway PA-C - [...] at this time. documented in this encounter [facility] 10-29-2023 History of Presen t illness Narrative This note was created using [employer]. Subjective Capri Aguilar is a 48 year [...] Acute gastritis without mention of hemorrhage CHARCOT Rjxawkv-Otzia-ivrao disease, deafness, and intellectual disability syndrome Eczema [...] syndrome - ICD9: 756.83, ICD10: Q79.60 4. Foyaywy-Nesxc-Kwiyl disease - ICD9: 356.1, ICD10: G60.0 Erika Conway PA-C documented in this encounter [facility] 10-29-2023 Telephone encounter Note I'll discuss it with her at today's office visit. [facility] 10-29-2023 Miscellaneous Notes I'll discuss it [...] [facility] SURGERY DOS 11/12/2023 Admission Type: EL Payor: Payor: MEDICARE / Plan: MEDICARE A AND B / Product Type: Medicare / Hospital: [facility] dental sales representative/website used: [place]: [id number] Phone Number Called: N/A Time of call/verification: 3:49 PM Case Reference number: [id number] Was initial clinical information received? Yes When? 09/19/23 Did payer provide how many pages were received? n/a If yes, How many pages were received? n/a Diagnosis Codes: Diagnoses: G43.909 (ICD-10-CM) - Migraine without status migrainosus, not intractable, unspecified migraine type Procedure Codes: 81826 Call reference: n/a Comments: Per fax the case has been denied, documentation does not support the clinical efectiveness for subsequent botullinum toxin injection per lcd documented in this encounter [facility] 10-29-2023 Telephone encounter Note Lebron, Please [...] B / Product Type: Medicare / Hospital: [facility] Pro* dental sales representative/website used: [place]: [phone] Phone Number Called: N/A Time of call/verification: 3:49 PM Case Reference number: [id number] Was initial clinical information received? Yes When? 09/19/23 Did payer provide how many pages were received? n/a If yes, How many pages were received? n/a Diagnosis Codes: Diagnoses: G43.909 (ICD-10-CM) - Migraine without status migrainosus, not intractable, unspecified migraine type Procedure Codes: 16530 Call reference: n/a Comments: Per fax the case has been denied, documentation does not support the clinical efectiveness for subsequent botullinum toxin injection per lcd [facility] 10-24-2023 Telephone encounter Note The following [...] up to 25 days Erika Conway PA-C [facility] 10-24-2023 Miscellaneous Notes The following approved [...] in the meantime. documented in this encounter [facility] 10-24-2023 Telephone encounter Note Notice for script received from pharmacy - last script sent was dated 10/02/23, now . Spoke with pt who said she does need another script, she has been waiting on it to come in since it is on backorder, but in the meantime. [facility] 10-24-2023 Hospital Discharg e Dejon Dunham [...] normally would, but you do need a mobile lounge driver. Additional Instructions: documented in this encounter [facility] 10-24-2023 Surgery Surgical operation note Summary: TPI Trigger Point Injection PROCEDURE: trigger point injection CPT code: 37630 PREPROCEDURE DIAGNOSIS: Fibromyalgia POSTPROCEDURE DIAGNOSIS: same ANESTHESIA: [...] DATE: October 24, 2023 TIME: 9:22 AM [facility] 10-24-2023 Surgical operatio n note Summary: TPI Trigger Point Injection PROCEDURE: trigger point injection CPT code: 36382 PREPROCEDURE DIAGNOSIS: Fibromyalgia POSTPROCEDURE DIAGNOSIS: same ANESTHESIA: [...] TIME: 9:22 AM documented in this encounter [facility] 10-22-2023 Surgery Surgical operation note Summary: TPI Trigger Point Injection PROCEDURE: trigger point injection CPT code: 52309 PREPROCEDURE DIAGNOSIS: Fibromyalgia POSTPROCEDURE DIAGNOSIS: same ANESTHESIA: [...] DATE: October 22, 2023 TIME: 3:45 PM [facility] 10-22-2023 Surgical operatio n note Summary: TPI Trigger Point Injection PROCEDURE: trigger point injection CPT code: 65679 PREPROCEDURE DIAGNOSIS: Fibromyalgia POSTPROCEDURE DIAGNOSIS: same ANESTHESIA: [...] TIME: 3:45 PM documented in this encounter [facility] 10-22-2023 Hospital Discharg e instructions Dejon [...] normally would, but you do need a mobile lounge driver. Additional Instructions: documented in this encounter [facility] 09-19-2023 Instructions Erika Conway PA-C - [...] at this time. documented in this encounter [facility] 09-19-2023 History of Presen t illness Narrative This note was created using [employer]. Subjective Capri Aguilar is a 47 year [...] Acute gastritis without mention of hemorrhage CHARCOT Fwukoum-Gdyip-yoafa disease, deafness, and intellectual disability syndrome Eczema [...] syndrome - ICD9: 756.83, ICD10: Q79.60 4. Hhzziql-Shwpa-Txzvo disease - ICD9: 356.1, ICD10: G60.0 5. Chronic pain syndrome - ICD9: 338.4, ICD10: G89.4 - OXYCODONE 20 MG/ML ORAL CONCENTRATE Erika Conway PA-C documented in this encounter [facility] 09-03-2023 Hospital Discharg e instructions Dejon [...] normally would, but you do need a mobile lounge driver. Additional Instructions: documented in this encounter [facility] 09-03-2023 Surgical operatio n note Summary: TPI Trigger Point Injection PROCEDURE: trigger point injection CPT code: 65039 PREPROCEDURE DIAGNOSIS: Fibromyalgia POSTPROCEDURE DIAGNOSIS: same ANESTHESIA: [...] TIME: 3:04 PM documented in this encounter [facility] 09-02-2023 Miscellaneous Notes The following approved [...] 2023 12:53 PM documented in this encounter [facility] 08-29-2023 Hospital Discharg e Dejon Dunham MD - 08/29/2023 3:06 PM EDT Post-procedure [...] normally would, but you do need a mobile lounge driver. Additional Instructions: documented in this encounter [facility] 08-29-2023 Surgical operatio n note Summary: TPI Trigger Point Injection PROCEDURE: trigger point injection CPT code: 30871 PREPROCEDURE DIAGNOSIS: Fibromyalgia1 POSTPROCEDURE DIAGNOSIS: same ANESTHESIA: [...] TIME: 3:06 PM documented in this encounter [facility] 08-12-2023 Procedure note [facility] 08-06-2023 Hospital Discharg e instructions Dejon Andres [...] normally would, but you do need a mobile lounge driver. Additional Instructions: documented in this encounter [facility] 08-06-2023 Surgical operatio n note Summary: Botox injection Botox Injection PROCEDURE: Botox injection CPT code: 02185 PREPROCEDURE DIAGNOSIS: Migraine headache POSTPROCEDURE DIAGNOSIS: same ANESTHESIA: none PROCEDURE REPORT: The risks and benefits of the procedure were explained to the patient and all questions were answered. The patient gave consent to proceed with the procedure. The skin was prepped with alcohol. BOTOX Lot Number: [id number] BOTOX was reconstituted to a concentration of 2.5 U/0.1mL. The following injections were made using a 30G needle: 15 Botox units to the procerus muscle 15 Botox units to the right bulk plant supervisor supercilii muscle 15 Botox units to the left bulk plant supervisor supercilii muscle 30 Botox units to the [...] TIME: 2:51 PM documented in this encounter [facility] 07-25-2023 Miscellaneous Notes The following approved [...] Drug Present Oxycodone 7125 ng/mg creat Oxymorphone 26641 ng/mg creat Noroxycodone >72074 ng/mg creat Noroxymorphone 5903 ng/mg creat Sources [...] Panel: No results found for: UQCANN, UQBNZL, HEN4YGD, UQAMPH, UQMAMP, UQBUPRE, UQNORBUP, UQMTHD, UQEDDP, UQTRAM, UQDTRM, UQFNTL, UQNFTL, UQCODE, UQMORP, UQDCDN, UQHCOD, UQOXYC, UQHMOR, UQOXYM, UQCREA, UQPH, UQSPGR, UQOXID, UQSPQ @FLOW([id number])@ Lab Results Component Value Date SUMM FINAL [...] date: 07/03/2022 Please review and advise. Margot Lanier, SAMAN documented in this encounter [facility] 04-23-2023 Miscellaneous Notes Summary: Pt to see Dr Andres Items addressed in this encounter: MyChart Encounter Patient will see Dr Andres and speak to him about her injections. She will call in for refills until her first appt with Dr Andres Jun 19, 2023 Able to close encounter. Sharyn Page MA April 23, 2023 1:09 PM 1:09 PM documented in this encounter [facility] 04-23-2023 Miscellaneous Notes Summary: Virtual Visit Pre Check In Items addressed in this encounter: Virtual Visit Pre Check In Able to close encounter. Sharyn Page MA April 23, 2023 6:40 AM 6:40 AM documented in this encounter [facility] 03-27-2023 Miscellaneous Notes Discussed with Ana, she will call pt Roxana Byrne RN March 27, 2023 2:06 PM documented in this encounter [facility] 03-19-2023 Miscellaneous Notes Order placed Capri Gonzalez will be due for her next Botox injection on May 01. Please build a case and closer to that date I will speak to her and get an update on the previous injection. Ana Harmon March 19, 2023 11:02 AM documented in this encounter [facility] 03-18-2023 Instructions Morteza Meza DO - 03/18/2023 4:54 PM EDT Continue OxyIR liquid 2. Continue Botox q12 weeks - last done on 01/31/23-100% relief. Check on rescheduling for 05/01/2023. 3. Continue Trigger Point Injections - last done on 10/25/22-TPI scheduled for 04/24/23 5. Patient was transferred to for next follow-up visit in 3 months. documented in this encounter [facility] 03-18-2023 History of Presen t illness Narrative Summary: Pain management follow-up DATE: March 18, 2023 Chief Complaint: migraines, whole body joint and muscle pain ___ History of Present Illness: Capri Aguilar is a 47 year old female being seen at [facility] for a evaluation [...] 05/04/2020 Medication trials: Imitrex, Topamax, nortriptyline, Maxalt, rbuc-azk-ptvhaxy Excedrin, Tylenol, Advil, Phenergan, patient cannot tolerate [...] Drug Present Oxycodone 7125 ng/mg creat Oxymorphone 21715 ng/mg creat Noroxycodone >09949 ng/mg creat Noroxymorphone 5903 ng/mg creat Sources [...] Acute gastritis without mention of hemorrhage CHARCOT Ugisjqs-Hzhxt-vdpfr disease, deafness, and intellectual disability syndrome Eczema [...] Q79.60 5. Chronic pain syndrome G89.4 6. Njsstbd-Ryurp-Qbjqw syndrome G60.0 Patient is stable. Chronic pain [...] this encounter was entered by Renetta Guajardo, electromedical service engineer for Dr. Morteza Meza on March 18, [...] March 18, 2023. documented in this encounter [facility] 02-22-2023 Instructions Paola Falcon APRN.CNP - 02/22/2023 4:09 PM EDT Continue OxyIR liquid Continue Botox q12 weeks - last done on 01/31/23-100% relief Continue Trigger Point Injections - last done on 10/25/22-scheduled for 02/27/23 F/U in 1 month Paola Falcon APRN.CNP documented in this encounter [facility] 02-22-2023 Miscellaneous Notes I spoke with Capri and verified her TPI's are on Feb 27 at 3:45. She verbalized understanding. There was a different procedure scheduled that day/time so it was corrected. Ana February 22, 2023 4:07 PM documented in this encounter [facility] 02-22-2023 History of Presen t illness Narrative This video visit was performed via [employer] video visit. Patient consented to receive health care services via virtual visit for this encounter Provider Location: Non-[facility] Facility Patient Location: Patient Home or Place of Residence I have communicated my name and active licensure. The patient's identity and physical location were verified at the time of this visit. Either the patient or their legal circulation representative has been informed of the risks and benefits of -- and alternatives to -- treatment through a remote evaluation and consents to proceed with the evaluation remotely. Chief Complaint: Pain ___ History of Present Illness: Capri Aguilar is a 47 year old year old female being seen at [facility] for a evaluation [...] 05/04/2020 Medication trials: Imitrex, Topamax, nortriptyline, Maxalt, vzgz-snp-chrcocp Excedrin, Tylenol, Advil, Phenergan, patient cannot tolerate [...] Drug Present Oxycodone 7125 ng/mg creat Oxymorphone 82956 ng/mg creat Noroxycodone >94772 ng/mg creat Noroxymorphone 5903 ng/mg creat Sources [...] Acute gastritis without mention of hemorrhage CHARCOT Smkfmja-Fukhp-jeydr disease, deafness, and intellectual disability syndrome Eczema [...] Q79.60 5. Chronic pain syndrome G89.4 6. Ybiayqf-Saals-Mscav syndrome G60.0 7. 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 Z79.891 8. Migraine variant G43.809 9. Myofascial pain syndrome M79.18 10. POTS (postural orthostatic tachycardia syndrome) G90.A 11. Marfan's syndrome Q87.40 12. Ozjvjwi-Pwwig-Exeie disease G60.0 Plan: The pain management agreement [...] Paola Falcon APRN.VISHAL documented in this encounter [facility] 02-21-2023 Miscellaneous Notes I built the [...] 2023 3:45 PM documented in this encounter [facility] 02-21-2023 Miscellaneous Notes Summary: Virtual Visit Pre Check In Items addressed in this encounter: Virtual Visit Pre Check In Able to close encounter. Sharyn Page MA February 21, 2023 3:24 PM 3:24 PM documented in this encounter [facility] 01-31-2023 Surgical operatio n note Summary: Botox injections FUNCTIONAL ASSESSMENT: See nurses documentation. Pt had 50% benefit from the last injection. MIGRAINE PROGRESS NOTE: Location: Bilateral occipital, bilateral temporal, bilateral frontal region, bilateral cervical paraspinal muscle Frequency: Greater than 180 hours prior to starting Botox injections. Patient had 0 migraine attacks last month with current regimen. Medication trials: Imitrex, Topamax, Maxalt, pyph-zat-qlywloj Excedrin, Tylenol, Advil, Phenergan, patient cannot tolerate [...] the face at the temporal region was [id number]. The expiration date is July of 2025. The Botox lot number utilized for the cervical and occipital regions was [id number].The expiration date is also the same of July 2025. Botox was reconstituted to a concentration of 5 units per 0.1 cc. The following injections were made using a 25-gauge, 38 mm needle: 1. 10 units divided in 2 sites to the bulk plant supervisor muscles. 2. 5 units in 1 site [...] this encounter was entered by Renetta Guajardo, electromedical service engineer, for Dr. Morteza Meza on January 31, [...] January 31, 2023. documented in this encounter [facility] 01-23-2023 History of Presen t illness Narrative This video visit was performed via [employer] video visit. Patient consented to receive health care services via virtual visit for this encounter Provider Location: [place] Patient Location: Patient Home or Place of Residence I have communicated my name and active licensure. The patient's identity and physical location were verified at the time of this visit. Either the patient or their legal circulation representative has been informed of the risks and benefits of -- and alternatives to -- treatment through a remote evaluation and consents to proceed with the evaluation remotely. Chief Complaint: Pain ___ History of Present Illness: Capri Aguilar is a 47 year old year old female being seen at 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 Z79.891 Plan: [...] Demian Forman APRN.CNP documented in this encounter [facility] 01-23-2023 Instructions Demian Forman APRN.CNP - 01/23/2023 1:13 PM EDT Order UDS - will collect at procedure Continue OxyIR liquid Continue Botox q12 weeks - last done on 11/01/22 Continue Trigger Point Injections - last done on 10/25/22 She declines further lidocaine infusions F/U in 1 month documented in this encounter [facility] 12-19-2022 History of Presen t illness Narrative This video visit was performed via [employer] video visit. Patient consented to receive health care services via virtual visit for this encounter Provider Location: [place] Patient Location: Patient Home or Place of Residence I have communicated my name and active licensure. The patient's identity and physical location were verified at the time of this visit. Either the patient or their legal circulation representative has been informed of the risks and benefits of -- and alternatives to -- treatment through a remote evaluation and consents to proceed with the evaluation remotely. Chief Complaint: Pain ___ History of Present Illness: Capri Aguilar is a 47 year old year old female being seen at 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 Z79.891 Plan: [...] Demian Forman APRN.CNP documented in this encounter [facility] 12-19-2022 Instructions Demian Forman APRN.CNP - 12/19/2022 12:53 PM EDT Continue OxyIR liquid Continue Botox q12 weeks - last done on 11/01/22 Continue Trigger Point Injections - last done on 10/25/22 She declines further lidocaine infusions Stop remeron F/U in 1 month documented in this encounter [facility] 11-27-2022 History of Presen t illness Narrative This video visit was performed via [employer] video visit. Patient consented to receive health care services via virtual visit for this encounter Provider Location: Non-[facility] Facility Patient Location: Patient Home or Place of Residence I have communicated my name and active licensure. The patient's identity and physical location were verified at the time of this visit. Either the patient or their legal circulation representative has been informed of the risks and benefits of -- and alternatives to -- treatment through a remote evaluation and consents to proceed with the evaluation remotely. Chief Complaint: Pain ___ History of Present Illness: Capri Aguilar is a 47 year old year old female being seen at [facility] for a evaluation [...] 05/04/2020 Medication trials: Imitrex, Topamax, nortriptyline, Maxalt, rbtp-bqo-kugtfyo Excedrin, Tylenol, Advil, Phenergan, patient cannot tolerate [...] Test Result Flag Units Drug Present Oxycodone 88591 ng/mg creat Oxymorphone >70757 ng/mg creat Noroxycodone >63755 ng/mg creat Noroxymorphone 9037 ng/mg creat Sources [...] Acute gastritis without mention of hemorrhage CHARCOT Ucnkjpu-Sqdbc-msnhb disease, deafness, and intellectual disability syndrome Eczema [...] syndrome Q79.60 5. Migraine variant G43.809 6. 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 Z79.891 Plan: [...] Demian Forman APRN.CNP documented in this encounter [facility] 11-27-2022 Instructions Demian Forman APRN.CNP - 11/27/2022 12:57 PM EDT Continue OxyIR liquid Continue Botox q12 weeks - last done on 11/01/22 Continue Trigger Point Injections - last done on 10/25/22 She declines further lidocaine infusions Trial of remeron F/U in 1 month documented in this encounter [facility] 2022 Miscellaneous Notes PLease collect UDS at I. Thanks documented in this encounter [facility] 10-10-2022 History of Presen t illness Narrative This video visit was performed via [employer] video visit. Patient consented to receive health care services via virtual visit for this encounter Provider Location: Non-[facility] Patient Location: Patient Home or Place of Residence I have communicated my name and active licensure. The patient's identity and physical location were verified at the time of this visit. Either the patient or their legal circulation representative has been informed of the risks and benefits of -- and alternatives to -- treatment through a remote evaluation and consents to proceed with the evaluation remotely. Chief Complaint: Pain ___ History of Present Illness: Capri Aguilar is a 46 year old year old female being seen at [facility] for a evaluation [...] Test Result Flag Units Drug Present Oxycodone 46308 ng/mg creat Oxymorphone >29396 ng/mg creat Noroxycodone >99993 ng/mg creat Noroxymorphone 9037 ng/mg creat Sources [...] Acute gastritis without mention of hemorrhage CHARCOT Wbkglio-Pwmbx-ctgjs disease, deafness, and intellectual disability syndrome Eczema [...] ICD-10-CM 1. Other chronic pain G89.29 2. 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 Z79.891 3. [...] Demian Forman APRN.CNP documented in this encounter [facility] 10-10-2022 Instructions Demian Forman APRN.CNP - 10/10/2022 2:03 PM EDT Continue OxyIR liquid Continue Botox q12 weeks, patient already has future appointment scheduled Continue Trigger Point Injections, patient already has future appointment scheduled. She declines further lidocaine infusions F/U in 1 month documented in this encounter [facility] 09-12-2022 History of Presen t illness Narrative This video visit was performed via [employer] video visit. Patient consented to receive health care services via virtual visit for this encounter Provider Location: [place] Patient Location: Patient Home or Place of Residence I have communicated my name and active licensure. The patient's identity and physical location were verified at the time of this visit. Either the patient or their legal circulation representative has been informed of the risks and benefits of -- and alternatives to -- treatment through a remote evaluation and consents to proceed with the evaluation remotely. Chief Complaint: Pain ___ History of Present Illness: Capri Aguilar is a 46 year old year old female being seen at [facility] for a evaluation [...] Test Result Flag Units Drug Present Oxycodone 88709 ng/mg creat Oxymorphone >02390 ng/mg creat Noroxycodone >14127 ng/mg creat Noroxymorphone 9037 ng/mg creat Sources [...] Acute gastritis without mention of hemorrhage CHARCOT Mutcjtu-Umlex-thoxj disease, deafness, and intellectual disability syndrome Eczema [...] ICD-10-CM 1. Other chronic pain G89.29 2. 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 Z79.891 3. [...] Demian Forman APRN.CNP documented in this encounter [facility] 09-12-2022 Instructions Demian Forman APRN.CNP - 09/12/2022 1:00 PM EDT Continue OxyIR liquid Continue Botox q12 weeks, patient already has future appointment scheduled Continue Trigger Point Injections, patient already has future appointment scheduled. She declines further lidocaine infusions F/U in 1 month documented in this encounter [facility] 08-23-2022 Surgical operatio n note Summary: [...] this encounter was entered by Renetta Guajardo electromedical service engineer, for Dr. Morteza Meza on August 23, [...] August 23, 2022. documented in this encounter [facility] 08-21-2022 History of Presen t illness Narrative This video visit was performed via [employer] video visit. Patient consented to receive health care services via virtual visit for this encounter Provider Location: [place] Patient Location: Patient Home or Place of Residence I have communicated my name and active licensure. The patient's identity and physical location were verified at the time of this visit. Either the patient or their legal circulation representative has been informed of the risks and benefits of -- and alternatives to -- treatment through a remote evaluation and consents to proceed with the evaluation remotely. Chief Complaint: Pain ___ History of Present Illness: Capri Aguilar is a 46 year old year old female being seen at [facility] for a evaluation [...] Test Result Flag Units Drug Present Oxycodone 95714 ng/mg creat Oxymorphone >26549 ng/mg creat Noroxycodone >05184 ng/mg creat Noroxymorphone 9037 ng/mg creat Sources [...] Acute gastritis without mention of hemorrhage CHARCOT Dlkkurt-Wpgzb-qiqox disease, deafness, and intellectual disability syndrome Eczema [...] ICD-10-CM 1. Other chronic pain G89.29 2. 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 Z79.891 3. [...] Demian Forman APRN.CNP documented in this encounter [facility] 08-21-2022 Instructions Demian Forman APRN.CNP - 08/21/2022 2:52 PM EDT Continue OxyIR liquid Continue Botox q12 weeks, patient already has future appointment scheduled Continue Trigger Point Injections, patient already has future appointment scheduled. She declines further lidocaine infusions F/U in 1 month documented in this encounter [facility] 07-24-2022 Miscellaneous Notes I left a message to schedule Botox. Offer 08/01/2022 Ana July 24, 2022 2:24 PM documented in this encounter [facility] 07-03-2022 History of Presen t illness Narrative This video visit was performed via [employer] video visit. Patient consented to receive health care services via virtual visit for this encounter Provider Location: [place] Patient Location: Patient Home or Place of Residence Risks, benefits, and limitations of receiving care virtually were discussed with the patient. The patient expressed understanding and is willing to proceed. Chief Complaint: Pain ___ History of Present Illness: Capri Aguilar is a 46 year old year old female being seen at [facility] for a evaluation [...] Acute gastritis without mention of hemorrhage CHARCOT Qytyntr-Jnakn-kgbvx disease, deafness, and intellectual disability syndrome Eczema [...] ICD-10-CM 1. Other chronic pain G89.29 2. 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 Z79.891 3. [...] Demian Forman APRN.CNP documented in this encounter [facility] 07-03-2022 Instructions Demian Forman APRN.CNP - 07/03/2022 1:09 PM EST Continue OxyIR liquid Continue Botox q12 weeks, patient already has future appointment scheduled Continue Trigger Point Injections, patient already has future appointment scheduled. She declines further lidocaine infusions F/U in 1 month documented in this encounter [facility] 06-06-2022 Miscellaneous Notes The following approved [...] DEMIAN FORMAN APRN.CNP documented in this encounter [facility] 05-07-2022 History of Presen t illness Narrative This video visit was performed via [employer] video visit. Patient consented to receive health care services via virtual visit for this encounter Provider Location: [place] Patient Location: Patient Home or Place of Residence Risks, benefits, and limitations of receiving care virtually were discussed with the patient. The patient expressed understanding and is willing to proceed. Chief Complaint: Pain ___ History of Present Illness: Capri Aguilar is a 46 year old year old female being seen at [facility] for a evaluation [...] Acute gastritis without mention of hemorrhage CHARCOT Wnmcioj-Tvnra-yewhc disease, deafness, and intellectual disability syndrome Eczema [...] ICD-10-CM 1. Other chronic pain G89.29 2. 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 Z79.891 3. [...] Demian Forman APRN.VISHAL documented in this encounter [facility] 05-07-2022 Instructions Demian Forman APRN.CNP - 05/07/2022 1:33 PM EST Continue OxyIR liquid Continue Botox q12 weeks, patient already has future appointment scheduled Continue Trigger Point Injections, patient already has future appointment scheduled. She declines further lidocaine infusions F/U in 1 month documented in this encounter [facility] 04-20-2022 History of Presen t illness Narrative This video visit was performed via [employer] video visit. Patient consented to receive health care services via virtual visit for this encounter Provider Location: Non-[facility] Patient Location: Patient Home or Place of Residence Risks, benefits, and limitations of receiving care virtually were discussed with the patient. The patient expressed understanding and is willing to proceed. Chief Complaint: Pain ___ History of Present Illness: Capri Aguilar is a 46 year old year old female being seen at [facility] for a evaluation [...] Acute gastritis without mention of hemorrhage CHARCOT Qzitzea-Jffac-lvvex disease, deafness, and intellectual disability syndrome Eczema [...] Encounter Diagnosis ICD-10-CM 1. Fibromyalgia M79.7 2. 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 Z79.891 3. [...] Demian Forman APRN.CNP documented in this encounter [facility] 04-20-2022 Instructions Demian Forman APRN.CNP - 04/20/2022 2:42 PM EST Continue OxyIR liquid Continue Botox q12 weeks, patient already has future appointment scheduled Continue Trigger Point Injections, patient already has future appointment scheduled. She declines further lidocaine infusions F/U in 1 month documented in this encounter [facility] 02-23-2022 History of Presen t illness Narrative This video visit was performed via [employer] video visit. Patient consented to receive health care services via virtual visit for this encounter Provider Location: Non-[facility] Patient Location: Patient Home or Place of Residence Risks, benefits, and limitations of receiving care virtually were discussed with the patient. The patient expressed understanding and is willing to proceed. Chief Complaint: Pain ___ History of Present Illness: Capri Aguilar is a 46 year old year old female being seen at [facility] for a evaluation and/or management of her chronic pain. The patient was last seen virtually on 01/02/2022. She states that since the last visit symptoms have been stable. She continues to report benefit from the botox and TPI's. The patient reports having no migraines since her last Botox injection done on 01/17/22. She saw her bods developer and was prescribed Provigil. Otherwise, her medical [...] Acute gastritis without mention of hemorrhage CHARCOT Uxriont-Nhepk-ypuus disease, deafness, and intellectual disability syndrome Eczema [...] Encounter Diagnosis ICD-10-CM 1. Fibromyalgia M79.7 2. 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 Z79.891 3. [...] Demian Forman APRN.VISHAL documented in this encounter [facility] 02-23-2022 Instructions Demian Forman APRN.CNP - 02/23/2022 1:22 PM EDT Continue OxyIR liquid Continue Botox q12 weeks, patient already has future appointment scheduled Continue Trigger Point Injections, patient already has future appointment scheduled. She declines further lidocaine infusions F/U in 1 month documented in this encounter [facility] 01-30-2022 Instructions Morteza Meza DO - 01/30/2022 3:22 PM EDT Continue OxyIR liquid 2. Continue Botox q12 weeks, patient already has future appointment scheduled 3. Continue Trigger Point Injections, patient already has future appointment scheduled. Discussed changing to 0.5% Marcaine for next trigger point injection. 4. She declines further lidocaine infusions 5. F/U in 1 month(s) with FUR TRIMMING MACHINE OPERATOR 6. Obtain UDS documented in this encounter [facility] 01-30-2022 History of Presen t illness Narrative Summary: Pain management office follow-up visit DATE: January 30, 2022 Chief Complaint: Whole body pain ___ History of Present Illness: Capri Aguilar is a 46 year old female being seen at 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 Chronic pain is [...] Morteza Meza DO documented in this encounter [facility] 01-02-2022 Instructions Demian Forman APRN.RELIABILITY ENGINEER - 01/02/2022 4:06 PM EDT Continue OxyIR Continue Botox q12 weeks- next injection 01/17/2022 Continue Trigger Point Injections She declines further lidocaine infusions F/U in 1 month(s). documented in this encounter [facility] 01-02-2022 History of Presen t illness Narrative This visit was conducted as a virtual visit. Provider Location: Non-[facility] Patient Location: Patient Home or Place of Residence Chief Complaint: Pain ___ History of Present Illness: Capri Aguilar is a 46 year old year old female being seen at [facility] for a evaluation [...] Acute gastritis without mention of hemorrhage CHARCOT Krqqvhi-Kbque-txxjm disease, deafness, and intellectual disability syndrome Eczema [...] M79.7 3. Myofascial pain syndrome M79.18 4. 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 Z79.891 5. [...] Demian Forman APRN.CNP documented in this encounter [facility] 12-13-2021 Miscellaneous Notes Summary: TRIGGER POINT [...] to approved criteria documented in this encounter [facility] 12-08-2021 History of Presen t illness Narrative Summary: Follow Up- Virtual Visit This visit was conducted as a virtual visit. DATE: December 08, 2021 Chief Complaint: Generalized Pain, Migraines ___ History of Present Illness: Capri Aguilar is a 46 year old year old female being seen at [facility] for a evaluation [...] Acute gastritis without mention of hemorrhage CHARCOT Hfymoly-Kgeoa-jmlog disease, deafness, and intellectual disability syndrome Eczema [...] (FLONASE) 50 mcg/actuation nasal spray Use 1 [place] in each nostril once daily. megestrol (MEGACE) [...] activity was identified. 12/08/2021 by Rashida Lange APRN.RELIABILITY ENGINEER PLAN: The patient understands the goal of [...] C-II IDALMIS: No F/U in 1 month(s). *[place] follow up is 01/30/[address] Meza* Rashida Lange APRN.VISHAL documented in this encounter [facility] 08-09-2008 History of Past i llness [...] of this encounter (statuses as of 09/21/2021) [facility] History of Past illness Narrative* Problem [...] of this encounter (statuses as of 10/12/2021) [facility] History of Past illness Narrative* Problem [...] of this encounter (statuses as of 10/19/2021) [facility] of Past [facility] Narrative* Problem [...] of this encounter (statuses as of 11/16/2021) [facility] of [facility] Narrative* Problem [...] of this encounter (statuses as of 11/22/2021) [facility] Narrative* Problem [...] of this encounter (statuses as of 12/08/2021) [facility] Narrative* Problem [...] of this encounter (statuses as of 12/14/2021) [facility] Narrative* Problem [...] of this encounter (statuses as of 12/26/2021) [facility] Narrative* Problem [...] of this encounter (statuses as of 01/02/2022) [facility] Narrative* Problem [...] of this encounter (statuses as of 01/31/2022) [facility] Narrative* Problem [...] of this encounter (statuses as of 02/23/2022) [facility] Narrative* Problem [...] of this encounter (statuses as of 04/20/2022) [facility] Narrative* Problem [...] of this encounter (statuses as of 04/25/2022) [facility] Narrative* Problem [...] of this encounter (statuses as of 04/26/2022) [facility] Narrative* Problem [...] of this encounter (statuses as of 05/07/2022) [facility] Narrative* Problem [...] of this encounter (statuses as of 06/12/2022) [facility] N[facility]* Problem [...] of this encounter (statuses as of 07/03/2022) [facility] N[facility]* Problem [...] of this encounter (statuses as of 07/10/2022) [facility] N[facility]ative* Problem [...] of this encounter (statuses as of 07/26/2022) [facility] N[facility]* Problem [...] of this encounter (statuses as of 08/02/2022) [facility] Narrative* Problem [...] of this encounter (statuses as of 08/21/2022) [facility] N[facility]ative* Problem [...] of this encounter (statuses as of 08/24/2022) [facility] N[facility]ative* Problem [...] of this encounter (statuses as of 09/13/2022) [facility] N[facility]ative* Problem [...] of this encounter (statuses as of 10/11/2022) [facility]* Problem [...] of this encounter (statuses as of 10/17/2022) [facility] N[facility]ative* Problem [...] of this encounter (statuses as of 10/19/2022) [facility]* Problem [...] of this encounter (statuses as of 11/06/2022) [facility]* Problem [...] of this encounter (statuses as of 11/28/2022) [facility]* Problem [...] of this encounter (statuses as of 12/18/2022) [facility]* Problem [...] of this encounter (statuses as of 12/20/2022) [facility] N[facility]ative* Problem [...] of this encounter (statuses as of 01/24/2023) [facility] N[facility]ative* Problem [...] of this encounter (statuses as of 01/31/2023) [facility]* Problem [...] of this encounter (statuses as of 02/01/2023) [facility] Narrative* Problem [...] of this encounter (statuses as of 02/22/2023) [facility] of Past illness Narrative* Problem [...] of this encounter (statuses as of 02/22/2023) [facility] Past [facility] Narrative* Problem [...] of this encounter (statuses as of 02/22/2023) [facility] Past [facility] Narrative* Problem [...] of this encounter (statuses as of 02/23/2023) [facility] Narrative* Problem [...] of this encounter (statuses as of 02/26/2023) [facility] Narrative* Problem [...] of this encounter (statuses as of 02/28/2023) [facility] Narrative* Problem [...] of this encounter (statuses as of 03/20/2023) [facility] N[facility]* Problem [...] of this encounter (statuses as of 03/25/2023) [facility] Narrative* Problem [...] of this encounter (statuses as of 03/27/2023) [facility]* Problem [...] of this encounter (statuses as of 04/23/2023) [facility] Narrative* Problem [...] of this encounter (statuses as of 05/06/2023) [facility]* Problem [...] of this encounter (statuses as of 07/25/2023) [facility] N[facility]ative* Problem [...] of this encounter (statuses as of 08/07/2023) [facility] N[facility]* Problem [...] of this encounter (statuses as of 08/30/2023) [facility] N[facility]* Problem [...] of this encounter (statuses as of 09/02/2023) [facility] N[facility]ative* Problem [...] of this encounter (statuses as of 09/03/2023) [facility] Narrative* Problem [...] of this encounter (statuses as of 09/04/2023) [facility] Narrative* Problem [...] of this encounter (statuses as of 09/20/2023) [facility] August 12, 2023 9:49am Note Date/Time August 12, 2023 9:49 am [facility] Medical Records Department [address] [place] [id number] Discharge Summary 08/12/23 0948 MR#: [id number] Acct: [id number] Name: CAPRI AGUILAR Rep #:[id number] : 1975 47 From: Mohit Henley MD PCP: Dr. Luisa Pemberton MD Status:[facility] Location: [place] [address] Providers Primary Care Physician: Dr. Luisa Pemberton [...] Pemberton MD; Dr. 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 Myofascial [...] myositis, unspecified [facility] Diagnosis Myofascial pain syndrome Mylagia and [...] myositis, unspecified [facility] Diagnosis Chronic pain syndrome- Primary Migraine variant Variants of migraine, not elsewhere classified, without mention of intractable migraine without mention of status migrainosus Fibromyalgia Mylagia and myositis, unspecified Myofascial pain syndrome Mylagia and myositis, unspecified 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 Intractable chronic [...] myositis, unspecified [facility] 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 POTS (postural orthostatic tachycardia syndrome) Tachycardia, unspecified Myofascial pain syndrome Mylagia and myositis, unspecified Myofascial pain syndrome Mylagia and myositis, unspecified Intractable chronic migraine without aura and without status migrainosus Chronic migraine without aura, with intractable migraine, so stated, without mention of status migrainosus Myofascial pain syndrome Mylagia and myositis, unspecified [facility] Diagnosis Fibromyalgia- Primary Mylagia and myositis, unspecified 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 Chronic pain [...] [facility] Fibromyalgia- Primary Mylagia and myositis, unspecified 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 Chronic pain [...] [facility] note* Diagnosis Other chronic pain- Primary 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 Fibromyalgia Mylagia [...] without status migrainosus [facility] Chronic pain syndrome Myofascial pain syndrome Mylagia and myositis, unspecified Migraine without aura and with status migrainosus, not intractable Migraine without aura, without mention of intractable migraine with status migrainosus Migraine without aura, intractable, without status migrainosus [facility] Other chronic pain- Primary 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 Fibromyalgia Mylagia [...] without status migrainosus [facility] Diagnosis 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- Primary Chronic migraine without aura, with intractable migraine, so stated, with status migrainosus Migraine without aura and with status migrainosus, not intractable Migraine without aura, without mention of intractable migraine with status migrainosus Migraine without aura, intractable, without status migrainosus [facility] Diagnosis Myofascial pain syndrome- Primary Mylagia and myositis, unspecified Myofascial pain syndrome Mylagia and myositis, unspecified Myofascial pain syndrome Mylagia and myositis, unspecified 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 Chronic migraine without aura, with intractable migraine, so stated, with status migrainosus [facility] Diagnosis Other chronic pain- Primary 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 Fibromyalgia Mylagia [...] with status migrainosus [facility] Diagnosis Other chronic pain- Primary 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 Fibromyalgia Mylagia [...] with status migrainosus [facility] Diagnosis Other chronic pain- Primary 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 Fibromyalgia Mylagia and myositis, unspecified Migraine variant Variants of migraine, not elsewhere classified, without mention of intractable migraine without mention of status migrainosus Myofascial pain syndrome Mylagia and myositis, unspecified 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 Chronic migraine without aura, with intractable migraine, so stated, with status migrainosus [facility] Diagnosis Intractable chronic migraine without aura [...] with status migrainosus [facility] Diagnosis Intractable chronic migraine without aura [...] with status migrainosus [facility] Diagnosis 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- Primary Chronic [...] with status migrainosus [facility] Diagnosis Other chronic pain- Primary Fibromyalgia Mylagia and myositis, unspecified 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 Chronic migraine without aura, with intractable migraine, so stated, with status migrainosus Darin-Danlos syndrome Migraine variant Variants of migraine, not elsewhere classified, without mention of intractable migraine without mention of status migrainosus 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 Chronic pain [...] with status migrainosus [facility] Diagnosis Other chronic pain- Primary Fibromyalgia Mylagia and myositis, unspecified 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 Chronic migraine without aura, with intractable migraine, so stated, with status migrainosus Darin-Danlos syndrome 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 Chronic pain [...] with status migrainosus [facility] Diagnosis Other chronic pain- Primary Fibromyalgia Mylagia and myositis, unspecified 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 Chronic migraine without aura, with intractable migraine, so stated, with status migrainosus Darin-Danlos syndrome 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 Chronic pain syndrome Migraine variant Variants of migraine, not elsewhere classified, without mention of intractable migraine without mention of status migrainosus 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 Chronic migraine without aura, with intractable migraine, so stated, with status migrainosus [facility] Diagnosis Migraine without aura and with status migrainosus, not intractable- Primary Migraine without aura, without mention of intractable migraine with status migrainosus Migraine with aura, intractable, without status migrainosus Migraine without aura and with status migrainosus, not intractable Migraine without aura, without mention of intractable migraine with status migrainosus Migraine with aura, intractable, without status migrainosus documented in this encounter [facility] note* Diagnosis Myofascial pain syndrome- Primary Mylagia and myositis, unspecified documented in this encounter [facility] note* Diagnosis Other chronic pain- Primary Fibromyalgia Mylagia and myositis, unspecified 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 Chronic migraine without aura, with intractable migraine, so stated, with status migrainosus Darin-Danlos syndrome Chronic pain syndrome Hnpnzet-Wnwah-Nmvln syndrome Peroneal muscular atrophy 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 Migraine variant Variants of migraine, not elsewhere classified, without mention of intractable migraine without mention of status migrainosus Myofascial pain syndrome Mylagia and myositis, unspecified POTS (postural orthostatic tachycardia syndrome) Tachycardia, unspecified Marfan's syndrome Cltzyto-Qusye-Jkmho disease Peroneal muscular atrophy Myofascial pain syndrome Mylagia and myositis, unspecified documented in this encounter [facility] note* Diagnosis Myofascial pain syndrome- Primary Mylagia and myositis, unspecified Myofascial pain syndrome Mylagia and myositis, unspecified documented in this encounter [facility] note* Diagnosis Migraine without aura and with status migrainosus, not intractable- Primary Migraine without aura, without mention of intractable migraine with status migrainosus Chronic migraine without aura, intractable, without status migrainosus Myofascial pain syndrome Mylagia and myositis, unspecified documented in this encounter [facility] note* Diagnosis Chronic pain syndrome- Primary 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 Chronic migraine without aura, with intractable migraine, so stated, with status migrainosus 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 Other chronic pain Darin-Danlos syndrome Marfan's syndrome POTS (postural orthostatic tachycardia syndrome) Tachycardia, unspecified Fibromyalgia Mylagia and myositis, unspecified Migraine variant Variants of migraine, not elsewhere classified, without mention of intractable migraine without mention of status migrainosus Myofascial pain syndrome Mylagia and myositis, unspecified Jrgdevl-Lgthz-Rnham disease Peroneal muscular atrophy Cgcdfga-Ovwsw-Zcszb syndrome Peroneal muscular atrophy Myofascial pain syndrome Mylagia and myositis, unspecified [facility]* Diagnosis Chronic pain syndrome [facility] Diagnosis Chronic pain syndrome 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 Chronic migraine without aura, with intractable migraine, so stated, with status migrainosus Fibromyalgia Mylagia and myositis, unspecified Fibromyalgia Mylagia and myositis, unspecified documented in this encounter [facility] noteNo assessment information availableWOhioHealth [facility] Work Phone: Evaluation note* Diagnosis Chronic pain syndrome Fibromyalgia Mylagia and myositis, unspecified [facility]* Diagnosis Migraine without status migrainosus, not intractable, unspecified migraine type- Primary Migraine without status migrainosus, not intractable, unspecified migraine type documented in this encounter [facility] note* Diagnosis Fibromyalgia- Primary Mylagia and myositis, unspecified 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 Chronic migraine without aura, with intractable migraine, so stated, with status migrainosus Darin-Danlos syndrome Oimqotp-Opdtq-Uassw disease Peroneal muscular atrophy Chronic pain syndrome Myofascial pain syndrome Mylagia and myositis, unspecified Migraine without status migrainosus, not intractable, unspecified migraine type documented in this encounter [facility] note* Diagnosis Chronic pain syndrome Migraine without status migrainosus, not intractable, unspecified migraine type [facility]* Diagnosis Fibromyalgia- Primary Mylagia and myositis, unspecified 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 Chronic migraine without aura, with intractable migraine, so stated, with status migrainosus 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 Migraine without status migrainosus, not intractable, unspecified migraine type documented in this encounter [facility] note* Diagnosis Migraine, unspecified, without mention of intractable migraine without mention of status migrainosus- Primary Fibromyalgia Mylagia and myositis, unspecified Fibromyalgia Mylagia and myositis, unspecified documented in this encounter [facility] note* Diagnosis Fibromyalgia- Primary Mylagia and myositis, unspecified Fibromyalgia Mylagia and myositis, unspecified Fibromyalgia Mylagia and myositis, unspecified documented in this encounter [facility] note* Diagnosis Migraine without aura and with status migrainosus, not intractable- Primary Migraine without aura, without mention of intractable migraine with status migrainosus Fibromyalgia Mylagia and myositis, unspecified Fibromyalgia Mylagia and myositis, unspecified Fibromyalgia Mylagia and myositis, unspecified documented in this encounter [facility] note* Diagnosis Chronic pain syndrome Fibromyalgia Mylagia and myositis, unspecified Fibromyalgia Mylagia and myositis, unspecified documented in this encounter [facility] note* Diagnosis Chronic pain syndrome- Primary Fibromyalgia Mylagia and myositis, unspecified Darin-Danlos syndrome Aaqxjwk-Sujug-Ltqcp disease Peroneal muscular atrophy 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 Other chronic pain Fibromyalgia Mylagia and myositis, unspecified Fibromyalgia Mylagia and myositis, unspecified documented in this encounter [facility] note* Diagnosis Myofascial pain syndrome- Primary Mylagia and myositis, unspecified Fibromyalgia Mylagia and myositis, unspecified Myofascial pain syndrome Mylagia and myositis, unspecified Myofascial pain syndrome Mylagia and myositis, unspecified documented in this encounter [facility] note* Diagnosis Chronic pain syndrome Myofascial pain syndrome Mylagia and myositis, unspecified Myofascial pain syndrome Mylagia and myositis, unspecified documented in this encounter [facility] note* Diagnosis Intractable chronic migraine without aura [...] and myositis, unspecified documented in this encounter [facility] note* Diagnosis Chronic pain syndrome 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 Chronic migraine without aura, with intractable migraine, so stated, with status migrainosus Migraine, unspecified, without mention of intractable migraine without mention of status migrainosus Myofascial pain syndrome Mylagia and myositis, unspecified Myofascial pain syndrome Mylagia and myositis, unspecified documented in this encounter [facility] note* Diagnosis 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- Primary Chronic migraine without aura, with intractable migraine, so stated, with status migrainosus Myofascial pain syndrome Mylagia and myositis, unspecified documented in this encounter [facility] note* Diagnosis Myofascial pain syndrome- Primary Mylagia and myositis, unspecified Myofascial pain syndrome Mylagia and myositis, unspecified Myofascial pain syndrome Mylagia and myositis, unspecified documented in this encounter [facility] note* Diagnosis Fibromyalgia- Primary Mylagia and myositis, unspecified Darin-Danlos syndrome Nedtwal-Oaihg-Mdgkw disease 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 Chronic migraine without aura, with intractable migraine, so stated, with status migrainosus 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 Myofascial pain syndrome Mylagia and myositis, unspecified Myofascial pain syndrome Mylagia and myositis, unspecified documented in this encounter [facility] note* Diagnosis Flbuerb-Lrhzz-Ltmrx disease Peroneal muscular atrophy Myofascial pain syndrome Mylagia and myositis, unspecified Myofascial pain syndrome Mylagia and myositis, unspecified documented in this encounter [facility] note* Diagnosis Migraine, unspecified, without mention of intractable migraine without mention of status migrainosus- Primary Myofascial pain syndrome Mylagia and myositis, unspecified Migraine, unspecified, without mention of intractable migraine without mention of status migrainosus documented in this encounter [facility] note* Diagnosis Mskxcoa-Aevlt-Mwpeb disease Peroneal muscular atrophy Myofascial pain syndrome Mylagia and myositis, unspecified Migraine, unspecified, without mention of intractable migraine without mention of status migrainosus documented in this encounter [facility] note* Diagnosis Fibromyalgia- Primary Mylagia and myositis, unspecified Myofascial pain syndrome Mylagia and myositis, unspecified Migraine, unspecified, without mention of intractable migraine without mention of status migrainosus documented in this encounter [facility] note* Diagnosis Qxptmef-Vttqj-Tvcqq disease Peroneal muscular atrophy Migraine, unspecified, without mention of intractable migraine without mention of status migrainosus [facility] Diagnosis Skvixjf-Xqsyl-Xkzxw disease- Primary Peroneal muscular atrophy Darin-Danlos syndrome [...] and myositis, unspecified documented in this encounter [facility] note* Diagnosis Nnalamc-Wxsdv-Vhbfj disease Peroneal muscular atrophy [facility] Diagnosis Myofascial pain syndrome- Primary Mylagia and myositis, unspecified Myofascial pain syndrome Mylagia and myositis, unspecified Myofascial pain syndrome Mylagia and myositis, unspecified documented in this encounter [facility] note* Diagnosis Nioajuc-Qjogo-Ehlsh disease Peroneal muscular atrophy Migraine, unspecified, without mention of intractable migraine without mention of status migrainosus documented in this encounter [facility] note* Diagnosis Darin-Danlos syndrome (HCC)- Primary Darin-Danlos syndrome Hwuhnvu-Dfusk-Orkbp disease Peroneal muscular atrophy Marfan's syndrome (HCC) Marfan's syndrome Migraine, unspecified, without mention of intractable migraine without mention of status migrainosus Fibromyalgia Mylagia and myositis, unspecified Myofascial pain syndrome Mylagia and myositis, unspecified 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 Migraine, unspecified, without mention of intractable migraine without mention of status migrainosus [facility]* Diagnosis Myofascial pain syndrome- Primary Mylagia and myositis, unspecified Fibromyalgia Mylagia and myositis, unspecified Myofascial pain syndrome Mylagia and myositis, unspecified Fibromyalgia Mylagia and myositis, unspecified Myofascial pain syndrome Mylagia and myositis, unspecified documented in this encounter [facility] note* Diagnosis Zewnpuv-Mxuaq-Vhqqc disease Peroneal muscular atrophy documented in this encounter [facility] note* Diagnosis Myofascial pain syndrome- Primary [...] with status migrainosus documented in this encounter [facility] note* Diagnosis Vrkxodd-Kbeuw-Gvxqm disease Peroneal muscular atrophy Myofascial pain syndrome Mylagia and myositis, unspecified Fibromyalgia Mylagia and myositis, unspecified Myofascial pain syndrome Mylagia and myositis, unspecified Fibromyalgia Mylagia and myositis, unspecified 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 Chronic migraine without aura, with intractable migraine, so stated, with status migrainosus [facility] Diagnosis Dqnytmg-Cgfmp-Yvouh disease- Primary 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 Marfan's syndrome (HCC) Marfan's syndrome Myofascial pain syndrome Mylagia and myositis, unspecified Fibromyalgia Mylagia and myositis, unspecified Migraine, unspecified, without mention of intractable migraine without mention of status migrainosus [facility] Diagnosis Absmrhk-Gjbpo-Csltz disease Peroneal muscular atrophy documented in this encounter [facility] note* Diagnosis Myofascial pain syndrome- Primary Mylagia and myositis, unspecified documented in this encounter [facility] for referral (narrative)No reason for referral information availableWOhioHealth [facility] Work Phone: [facility] Narrative* Auth/Cert (Routine) Specialty Diagnoses / Procedures Referred By Contac t Referred To Contact Diagnoses Migraine, unspecified, without mention of intractable migraine without mention of status migrainosus Migraine, unspecified, without mention of intractable migraine without mention of status migrainosus [G43.909] Procedures CHEMODERVATE FACIAL/TRIGEM/CERV MUSC MIGRAINE CHEMODENERVATION OF MUSCLE(S) INNERVATED BY FACIAL, TRIGEMINAL, CERVICAL SPINAL AND ACCESSORY NERVES, BILATERAL PAIN KANG PROCEDURES [address] [place] [address] Phone: tel: fax: Referral ID Status Reason Start Date Expiration Date Visits Re quested Visits Authorized [id number] 1 1 [facility] for visit Narrative* Auth/Cert (Routine) Specialty Diagnoses / Procedures Referred By Contac t Referred To Contact Diagnoses 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 [G43.711] Procedures CHEMODERVATE FACIAL/TRIGEM/CERV MUSC MIGRAINE CHEMODENERVATION OF MUSCLE(S) INNERVATED BY FACIAL, TRIGEMINAL, CERVICAL SPINAL AND ACCESSORY NERVES, BILATERAL PAIN KANG PROCEDURES [address] [place] [address] Phone: tel: fax: Referral ID Status Reason Start Date Expiration Date Visits Re quested Visits Authorized [id number] 1 1 [facility] Summary Purpose Family History No Family History Records FoundNo Family History Records FoundNo Family History Records FoundNo Family History Records FoundNo Family History Records Found Advance Directives No Advanced Directives Records FoundDocuments on File Type Date Recorded 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 Advance Directive(s) 11/28/2021 2:32 PM Documents on File Type Date Recorded 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 Advance Directive(s) 12/25/2021 2:26 PM Advance Directive(s) 11/28/2021 2:32 PM Advance Directive Response Recorded Date/ Time Living Will Yes July 31, 024 1:00pm Power of Reciprocating Drill Operator Yes July 31, 2023 1:00pm Name of Medical Power of Reciprocating Drill Operator MOTHER July 31, 2023 1:00pm Chief Complaint and Reason for Visit Chief Complaint Myringotomy,Tubes/ T - TUBES Additional Source Comments INFORMATION SOURCE (unrecogn ized section and content) DATE CREATED AUTHOR 10/24/2019 [facility] [place] DATE CREATED AUTHOR AUTHOR'S ORGANIZ ATION 02/24/2024 [facility] DATE CREATED AUTHOR AUTHOR'S ORGANIZ ATION 08/08/2024 [facility] DATE CREATED AUTHOR AUTHOR'S ORGANIZ ATION 04/20/2025 [facility] DATE CREATED AUTHOR AUTHOR'S ORGANIZ ATION 04/22/2025 [facility] Source Comments (unrecognize d section and content) In the event this informatio n is protected by the Federal Confidentiality of Alcohol and Drug Abuse Patient Records regulations: The Federal rules restrict any use of the information to criminally investigate or prosecute any alcohol or drug abuse patient.[facility]In the event this information is protected by the Federal Confidentiality of Alcohol and Drug Abuse Patient Records regulations: The Federal rules restrict any use of the information to criminally investigate or prosecute any alcohol or drug abuse patient.[facility] HospitalIn the event this information is protected by the Federal Confidentiality of Alcohol and Drug Abuse Patient Records regulations: The Federal rules restrict any use of the information to criminally investigate or prosecute any alcohol or drug abuse patient.[facility] HospitalIn the event this information is protected by the Federal Confidentiality of Alcohol and Drug Abuse Patient Records regulations: The Federal rules restrict any use of the information to criminally investigate or prosecute any alcohol or drug abuse patient.[facility] HospitalIn the event this information is protected by the Federal Confidentiality of Alcohol and Drug Abuse Patient Records regulations: The Federal rules restrict any use of the information to criminally investigate or prosecute any alcohol or drug abuse patient.[facility] HospitalIn the event this information is protected by the Federal Confidentiality of Alcohol and Drug Abuse Patient Records regulations: The Federal rules restrict any use of the information to criminally investigate or prosecute any alcohol or drug abuse patient.[facility] HospitalIn the event this information is protected by the Federal Confidentiality of Alcohol and Drug Abuse Patient Records regulations: The Federal rules restrict any use of the information to criminally investigate or prosecute any alcohol or drug abuse patient.[facility] HospitalIn the event this information is protected by the Federal Confidentiality of Alcohol and Drug Abuse Patient Records regulations: The Federal rules restrict any use of the information to criminally investigate or prosecute any alcohol or drug abuse patient.[facility] HospitalIn the event this information is protected by the Federal Confidentiality of Alcohol and Drug Abuse Patient Records regulations: The Federal rules restrict any use of the information to criminally investigate or prosecute any alcohol or drug abuse patient.[facility] HospitalIn the event this information is protected by the Federal Confidentiality of Alcohol and Drug Abuse Patient Records regulations: The Federal rules restrict any use of the information to criminally investigate or prosecute any alcohol or drug abuse patient.[facility] HospitalIn the event this information is protected by the Federal Confidentiality of Alcohol and Drug Abuse Patient Records regulations: The Federal rules restrict any use of the information to criminally investigate or prosecute any alcohol or drug abuse patient.[facility] HospitalIn the event this information is protected by the Federal Confidentiality of Alcohol and Drug Abuse Patient Records regulations: The Federal rules restrict any use of the information to criminally investigate or prosecute any alcohol or drug abuse patient.[facility] HospitalIn the event this information is protected by the Federal Confidentiality of Alcohol and Drug Abuse Patient Records regulations: The Federal rules restrict any use of the information to criminally investigate or prosecute any alcohol or drug abuse patient.[facility] HospitalIn the event this information is protected by the Federal Confidentiality of Alcohol and Drug Abuse Patient Records regulations: The Federal rules restrict any use of the information to criminally investigate or prosecute any alcohol or drug abuse patient.[facility] HospitalIn the event this information is protected by the Federal Confidentiality of Alcohol and Drug Abuse Patient Records regulations: The Federal rules restrict any use of the information to criminally investigate or prosecute any alcohol or drug abuse patient.[facility] HospitalIn the event this information is protected by the Federal Confidentiality of Alcohol and Drug Abuse Patient Records regulations: The Federal rules restrict any use of the information to criminally investigate or prosecute any alcohol or drug abuse patient.[facility] HospitalIn the event this information is protected by the Federal Confidentiality of Alcohol and Drug Abuse Patient Records regulations: The Federal rules restrict any use of the information to criminally investigate or prosecute any alcohol or drug abuse patient.[facility] HospitalIn the event this information is protected by the Federal Confidentiality of Alcohol and Drug Abuse Patient Records regulations: The Federal rules restrict any use of the information to criminally investigate or prosecute any alcohol or drug abuse patient.[facility] HospitalIn the event this information is protected by the Federal Confidentiality of Alcohol and Drug Abuse Patient Records regulations: The Federal rules restrict any use of the information to criminally investigate or prosecute any alcohol or drug abuse patient.[facility] HospitalIn the event this information is protected by the Federal Confidentiality of Alcohol and Drug Abuse Patient Records regulations: The Federal rules restrict any use of the information to criminally investigate or prosecute any alcohol or drug abuse patient.[facility] HospitalIn the event this information is protected by the Federal Confidentiality of Alcohol and Drug Abuse Patient Records regulations: The Federal rules restrict any use of the information to criminally investigate or prosecute any alcohol or drug abuse patient.[facility] HospitalIn the event this information is protected by the Federal Confidentiality of Alcohol and Drug Abuse Patient Records regulations: The Federal rules restrict any use of the information to criminally investigate or prosecute any alcohol or drug abuse patient.[facility] HospitalIn the event this information is protected by the Federal Confidentiality of Alcohol and Drug Abuse Patient Records regulations: The Federal rules restrict any use of the information to criminally investigate or prosecute any alcohol or drug abuse patient.[facility] HospitalIn the event this information is protected by the Federal Confidentiality of Alcohol and Drug Abuse Patient Records regulations: The Federal rules restrict any use of the information to criminally investigate or prosecute any alcohol or drug abuse patient.[facility] HospitalIn the event this information is protected by the Federal Confidentiality of Alcohol and Drug Abuse Patient Records regulations: The Federal rules restrict any use of the information to criminally investigate or prosecute any alcohol or drug abuse patient.[facility] HospitalIn the event this information is protected by the Federal Confidentiality of Alcohol and Drug Abuse Patient Records regulations: The Federal rules restrict any use of the information to criminally investigate or prosecute any alcohol or drug abuse patient.[facility] HospitalIn the event this information is protected by the Federal Confidentiality of Alcohol and Drug Abuse Patient Records regulations: The Federal rules restrict any use of the information to criminally investigate or prosecute any alcohol or drug abuse patient.[facility] HospitalIn the event this information is protected by the Federal Confidentiality of Alcohol and Drug Abuse Patient Records regulations: The Federal rules restrict any use of the information to criminally investigate or prosecute any alcohol or drug abuse patient.[facility] HospitalIn the event this information is protected by the Federal Confidentiality of Alcohol and Drug Abuse Patient Records regulations: The Federal rules restrict any use of the information to criminally investigate or prosecute any alcohol or drug abuse patient.[facility] HospitalIn the event this information is protected by the Federal Confidentiality of Alcohol and Drug Abuse Patient Records regulations: The Federal rules restrict any use of the information to criminally investigate or prosecute any alcohol or drug abuse patient.[facility] HospitalIn the event this information is protected by the Federal Confidentiality of Alcohol and Drug Abuse Patient Records regulations: The Federal rules restrict any use of the information to criminally investigate or prosecute any alcohol or drug abuse patient.[facility] HospitalIn the event this information is protected by the Federal Confidentiality of Alcohol and Drug Abuse Patient Records regulations: The Federal rules restrict any use of the information to criminally investigate or prosecute any alcohol or drug abuse patient.[facility] HospitalIn the event this information is protected by the Federal Confidentiality of Alcohol and Drug Abuse Patient Records regulations: The Federal rules restrict any use of the information to criminally investigate or prosecute any alcohol or drug abuse patient.[facility] HospitalIn the event this information is protected by the Federal Confidentiality of Alcohol and Drug Abuse Patient Records regulations: The Federal rules restrict any use of the information to criminally investigate or prosecute any alcohol or drug abuse patient.[facility] HospitalIn the event this information is protected by the Federal Confidentiality of Alcohol and Drug Abuse Patient Records regulations: The Federal rules restrict any use of the information to criminally investigate or prosecute any alcohol or drug abuse patient.[facility] HospitalIn the event this information is protected by the Federal Confidentiality of Alcohol and Drug Abuse Patient Records regulations: The Federal rules restrict any use of the information to criminally investigate or prosecute any alcohol or drug abuse patient.[facility] HospitalIn the event this information is protected by the Federal Confidentiality of Alcohol and Drug Abuse Patient Records regulations: The Federal rules restrict any use of the information to criminally investigate or prosecute any alcohol or drug abuse patient.[facility] HospitalIn the event this information is protected by the Federal Confidentiality of Alcohol and Drug Abuse Patient Records regulations: The Federal rules restrict any use of the information to criminally investigate or prosecute any alcohol or drug abuse patient.[facility] HospitalIn the event this information is protected by the Federal Confidentiality of Alcohol and Drug Abuse Patient Records regulations: The Federal rules restrict any use of the information to criminally investigate or prosecute any alcohol or drug abuse patient.[facility] HospitalIn the event this information is protected by the Federal Confidentiality of Alcohol and Drug Abuse Patient Records regulations: The Federal rules restrict any use of the information to criminally investigate or prosecute any alcohol or drug abuse patient.[facility] HospitalIn the event this information is protected by the Federal Confidentiality of Alcohol and Drug Abuse Patient Records regulations: The Federal rules restrict any use of the information to criminally investigate or prosecute any alcohol or drug abuse patient.[facility] HospitalIn the event this information is protected by the Federal Confidentiality of Alcohol and Drug Abuse Patient Records regulations: The Federal rules restrict any use of the information to criminally investigate or prosecute any alcohol or drug abuse patient.[facility] HospitalIn the event this information is protected by the Federal Confidentiality of Alcohol and Drug Abuse Patient Records regulations: The Federal rules restrict any use of the information to criminally investigate or prosecute any alcohol or drug abuse patient.[facility] HospitalIn the event this information is protected by the Federal Confidentiality of Alcohol and Drug Abuse Patient Records regulations: The Federal rules restrict any use of the information to criminally investigate or prosecute any alcohol or drug abuse patient.[facility] HospitalIn the event this information is protected by the Federal Confidentiality of Alcohol and Drug Abuse Patient Records regulations: The Federal rules restrict any use of the information to criminally investigate or prosecute any alcohol or drug abuse patient.[facility] HospitalIn the event this information is protected by the Federal Confidentiality of Alcohol and Drug Abuse Patient Records regulations: The Federal rules restrict any use of the information to criminally investigate or prosecute any alcohol or drug abuse patient.[facility] HospitalIn the event this information is protected by the Federal Confidentiality of Alcohol and Drug Abuse Patient Records regulations: The Federal rules restrict any use of the information to criminally investigate or prosecute any alcohol or drug abuse patient.[facility] HospitalIn the event this information is protected by the Federal Confidentiality of Alcohol and Drug Abuse Patient Records regulations: The Federal rules restrict any use of the information to criminally investigate or prosecute any alcohol or drug abuse patient.[facility] HospitalIn the event this information is protected by the Federal Confidentiality of Alcohol and Drug Abuse Patient Records regulations: The Federal rules restrict any use of the information to criminally investigate or prosecute any alcohol or drug abuse patient.[facility] HospitalIn the event this information is protected by the Federal Confidentiality of Alcohol and Drug Abuse Patient Records regulations: The Federal rules restrict any use of the information to criminally investigate or prosecute any alcohol or drug abuse patient.[facility] HospitalIn the event this information is protected by the Federal Confidentiality of Alcohol and Drug Abuse Patient Records regulations: The Federal rules restrict any use of the information to criminally investigate or prosecute any alcohol or drug abuse patient.[facility] HospitalIn the event this information is protected by the Federal Confidentiality of Alcohol and Drug Abuse Patient Records regulations: The Federal rules restrict any use of the information to criminally investigate or prosecute any alcohol or drug abuse patient.[facility] HospitalIn the event this information is protected by the Federal Confidentiality of Alcohol and Drug Abuse Patient Records regulations: The Federal rules restrict any use of the information to criminally investigate or prosecute any alcohol or drug abuse patient.[facility] HospitalIn the event this information is protected by the Federal Confidentiality of Alcohol and Drug Abuse Patient Records regulations: The Federal rules restrict any use of the information to criminally investigate or prosecute any alcohol or drug abuse patient.[facility] HospitalIn the event this information is protected by the Federal Confidentiality of Alcohol and Drug Abuse Patient Records regulations: The Federal rules restrict any use of the information to criminally investigate or prosecute any alcohol or drug abuse patient.[facility] HospitalIn the event this information is protected by the Federal Confidentiality of Alcohol and Drug Abuse Patient Records regulations: The Federal rules restrict any use of the information to criminally investigate or prosecute any alcohol or drug abuse patient.[facility] HospitalIn the event this information is protected by the Federal Confidentiality of Alcohol and Drug Abuse Patient Records regulations: The Federal rules restrict any use of the information to criminally investigate or prosecute any alcohol or drug abuse patient.[facility] HospitalIn the event this information is protected by the Federal Confidentiality of Alcohol and Drug Abuse Patient Records regulations: The Federal rules restrict any use of the information to criminally investigate or prosecute any alcohol or drug abuse patient.[facility] HospitalIn the event this information is protected by the Federal Confidentiality of Alcohol and Drug Abuse Patient Records regulations: The Federal rules restrict any use of the information to criminally investigate or prosecute any alcohol or drug abuse patient.[facility] HospitalIn the event this information is protected by the Federal Confidentiality of Alcohol and Drug Abuse Patient Records regulations: The Federal rules restrict any use of the information to criminally investigate or prosecute any alcohol or drug abuse patient.[facility] HospitalIn the event this information is protected by the Federal Confidentiality of Alcohol and Drug Abuse Patient Records regulations: The Federal rules restrict any use of the information to criminally investigate or prosecute any alcohol or drug abuse patient.[facility] HospitalIn the event this information is protected by the Federal Confidentiality of Alcohol and Drug Abuse Patient Records regulations: The Federal rules restrict any use of the information to criminally investigate or prosecute any alcohol or drug abuse patient.[facility] HospitalIn the event this information is protected by the Federal Confidentiality of Alcohol and Drug Abuse Patient Records regulations: The Federal rules restrict any use of the information to criminally investigate or prosecute any alcohol or drug abuse patient.[facility] HospitalIn the event this information is protected by the Federal Confidentiality of Alcohol and Drug Abuse Patient Records regulations: The Federal rules restrict any use of the information to criminally investigate or prosecute any alcohol or drug abuse patient.[facility] HospitalIn the event this information is protected by the Federal Confidentiality of Alcohol and Drug Abuse Patient Records regulations: The Federal rules restrict any use of the information to criminally investigate or prosecute any alcohol or drug abuse patient.[facility] HospitalIn the event this information is protected by the Federal Confidentiality of Alcohol and Drug Abuse Patient Records regulations: The Federal rules restrict any use of the information to criminally investigate or prosecute any alcohol or drug abuse patient.[facility] HospitalIn the event this information is protected by the Federal Confidentiality of Alcohol and Drug Abuse Patient Records regulations: The Federal rules restrict any use of the information to criminally investigate or prosecute any alcohol or drug abuse patient.[facility] HospitalIn the event this information is protected by the Federal Confidentiality of Alcohol and Drug Abuse Patient Records regulations: The Federal rules restrict any use of the information to criminally investigate or prosecute any alcohol or drug abuse patient.[facility] HospitalIn the event this information is protected by the Federal Confidentiality of Alcohol and Drug Abuse Patient Records regulations: The Federal rules restrict any use of the information to criminally investigate or prosecute any alcohol or drug abuse patient.[facility] HospitalIn the event this information is protected by the Federal Confidentiality of Alcohol and Drug Abuse Patient Records regulations: The Federal rules restrict any use of the information to criminally investigate or prosecute any alcohol or drug abuse patient.[facility] HospitalIn the event this information is protected by the Federal Confidentiality of Alcohol and Drug Abuse Patient Records regulations: The Federal rules restrict any use of the information to criminally investigate or prosecute any alcohol or drug abuse patient.[facility] HospitalIn the event this information is protected by the Federal Confidentiality of Alcohol and Drug Abuse Patient Records regulations: The Federal rules restrict any use of the information to criminally investigate or prosecute any alcohol or drug abuse patient.[facility] HospitalIn the event this information is protected by the Federal Confidentiality of Alcohol and Drug Abuse Patient Records regulations: The Federal rules restrict any use of the information to criminally investigate or prosecute any alcohol or drug abuse patient.[facility] HospitalIn the event this information is protected by the Federal Confidentiality of Alcohol and Drug Abuse Patient Records regulations: The Federal rules restrict any use of the information to criminally investigate or prosecute any alcohol or drug abuse patient.[facility] HospitalIn the event this information is protected by the Federal Confidentiality of Alcohol and Drug Abuse Patient Records regulations: The Federal rules restrict any use of the information to criminally investigate or prosecute any alcohol or drug abuse patient.[facility] HospitalIn the event this information is protected by the Federal Confidentiality of Alcohol and Drug Abuse Patient Records regulations: The Federal rules restrict any use of the information to criminally investigate or prosecute any alcohol or drug abuse patient.[facility] HospitalIn the event this information is protected by the Federal Confidentiality of Alcohol and Drug Abuse Patient Records regulations: The Federal rules restrict any use of the information to criminally investigate or prosecute any alcohol or drug abuse patient.[facility] HospitalIn the event this information is protected by the Federal Confidentiality of Alcohol and Drug Abuse Patient Records regulations: The Federal rules restrict any use of the information to criminally investigate or prosecute any alcohol or drug abuse patient.[facility] HospitalIn the event this information is protected by the Federal Confidentiality of Alcohol and Drug Abuse Patient Records regulations: The Federal rules restrict any use of the information to criminally investigate or prosecute any alcohol or drug abuse patient.[facility] HospitalIn the event this information is protected by the Federal Confidentiality of Alcohol and Drug Abuse Patient Records regulations: The Federal rules restrict any use of the information to criminally investigate or prosecute any alcohol or drug abuse patient.[facility] HospitalIn the event this information is protected by the Federal Confidentiality of Alcohol and Drug Abuse Patient Records regulations: The Federal rules restrict any use of the information to criminally investigate or prosecute any alcohol or drug abuse patient.[facility] HospitalIn the event this information is protected by the Federal Confidentiality of Alcohol and Drug Abuse Patient Records regulations: The Federal rules restrict any use of the information to criminally investigate or prosecute any alcohol or drug abuse patient.[facility] HospitalIn the event this information is protected by the Federal Confidentiality of Alcohol and Drug Abuse Patient Records regulations: The Federal rules restrict any use of the information to criminally investigate or prosecute any alcohol or drug abuse patient.[facility] HospitalIn the event this information is protected by the Federal Confidentiality of Alcohol and Drug Abuse Patient Records regulations: The Federal rules restrict any use of the information to criminally investigate or prosecute any alcohol or drug abuse patient.[facility] HospitalIn the event this information is protected by the Federal Confidentiality of Alcohol and Drug Abuse Patient Records regulations: The Federal rules restrict any use of the information to criminally investigate or prosecute any alcohol or drug abuse patient.[facility] HospitalIn the event this information is protected by the Federal Confidentiality of Alcohol and Drug Abuse Patient Records regulations: The Federal rules restrict any use of the information to criminally investigate or prosecute any alcohol or drug abuse patient.[facility] HospitalIn the event this information is protected by the Federal Confidentiality of Alcohol and Drug Abuse Patient Records regulations: The Federal rules restrict any use of the information to criminally investigate or prosecute any alcohol or drug abuse patient.[facility] HospitalIn the event this information is protected by the Federal Confidentiality of Alcohol and Drug Abuse Patient Records regulations: The Federal rules restrict any use of the information to criminally investigate or prosecute any alcohol or drug abuse patient.[facility] HospitalIn the event this information is protected by the Federal Confidentiality of Alcohol and Drug Abuse Patient Records regulations: The Federal rules restrict any use of the information to criminally investigate or prosecute any alcohol or drug abuse patient.[facility] HospitalIn the event this information is protected by the Federal Confidentiality of Alcohol and Drug Abuse Patient Records regulations: The Federal rules restrict any use of the information to criminally investigate or prosecute any alcohol or drug abuse patient.[facility] HospitalIn the event this information is protected by the Federal Confidentiality of Alcohol and Drug Abuse Patient Records regulations: The Federal rules restrict any use of the information to criminally investigate or prosecute any alcohol or drug abuse patient.[facility] HospitalIn the event this information is protected by the Federal Confidentiality of Alcohol and Drug Abuse Patient Records regulations: The Federal rules restrict any use of the information to criminally investigate or prosecute any alcohol or drug abuse patient.[facility] HospitalIn the event this information is protected by the Federal Confidentiality of Alcohol and Drug Abuse Patient Records regulations: The Federal rules restrict any use of the information to criminally investigate or prosecute any alcohol or drug abuse patient.[facility] HospitalIn the event this information is protected by the Federal Confidentiality of Alcohol and Drug Abuse Patient Records regulations: The Federal rules restrict any use of the information to criminally investigate or prosecute any alcohol or drug abuse patient.[facility] HospitalIn the event this information is protected by the Federal Confidentiality of Alcohol and Drug Abuse Patient Records regulations: The Federal rules restrict any use of the information to criminally investigate or prosecute any alcohol or drug abuse patient.[facility] HospitalIn the event this information is protected by the Federal Confidentiality of Alcohol and Drug Abuse Patient Records regulations: The Federal rules restrict any use of the information to criminally investigate or prosecute any alcohol or drug abuse patient.[facility] HospitalIn the event this information is protected by the Federal Confidentiality of Alcohol and Drug Abuse Patient Records regulations: The Federal rules restrict any use of the information to criminally investigate or prosecute any alcohol or drug abuse patient.[facility] HospitalIn the event this information is protected by the Federal Confidentiality of Alcohol and Drug Abuse Patient Records regulations: The Federal rules restrict any use of the information to criminally investigate or prosecute any alcohol or drug abuse patient.[facility] HospitalIn the event this information is protected by the Federal Confidentiality of Alcohol and Drug Abuse Patient Records regulations: The Federal rules restrict any use of the information to criminally investigate or prosecute any alcohol or drug abuse patient.[facility] HospitalIn the event this information is protected by the Federal Confidentiality of Alcohol and Drug Abuse Patient Records regulations: The Federal rules restrict any use of the information to criminally investigate or prosecute any alcohol or drug abuse patient.[facility] HospitalIn the event this information is protected by the Federal Confidentiality of Alcohol and Drug Abuse Patient Records regulations: The Federal rules restrict any use of the information to criminally investigate or prosecute any alcohol or drug abuse patient.[facility] HospitalIn the event this information is protected by the Federal Confidentiality of Alcohol and Drug Abuse Patient Records regulations: The Federal rules restrict any use of the information to criminally investigate or prosecute any alcohol or drug abuse patient.[facility] HospitalIn the event this information is protected by the Federal Confidentiality of Alcohol and Drug Abuse Patient Records regulations: The Federal rules restrict any use of the information to criminally investigate or prosecute any alcohol or drug abuse patient.[facility] HospitalIn the event this information is protected by the Federal Confidentiality of Alcohol and Drug Abuse Patient Records regulations: The Federal rules restrict any use of the information to criminally investigate or prosecute any alcohol or drug abuse patient.[facility] HospitalIn the event this information is protected by the Federal Confidentiality of Alcohol and Drug Abuse Patient Records regulations: The Federal rules restrict any use of the information to criminally investigate or prosecute any alcohol or drug abuse patient.[facility] HospitalIn the event this information is protected by the Federal Confidentiality of Alcohol and Drug Abuse Patient Records regulations: The Federal rules restrict any use of the information to criminally investigate or prosecute any alcohol or drug abuse patient.[facility] HospitalIn the event this information is protected by the Federal Confidentiality of Alcohol and Drug Abuse Patient Records regulations: The Federal rules restrict any use of the information to criminally investigate or prosecute any alcohol or drug abuse patient.[facility] HospitalIn the event this information is protected by the Federal Confidentiality of Alcohol and Drug Abuse Patient Records regulations: The Federal rules restrict any use of the information to criminally investigate or prosecute any alcohol or drug abuse patient.[facility] HospitalIn the event this information is protected by the Federal Confidentiality of Alcohol and Drug Abuse Patient Records regulations: The Federal rules restrict any use of the information to criminally investigate or prosecute any alcohol or drug abuse patient.[facility] HospitalIn the event this information is protected by the Federal Confidentiality of Alcohol and Drug Abuse Patient Records regulations: The Federal rules restrict any use of the information to criminally investigate or prosecute any alcohol or drug abuse patient.[facility] HospitalIn the event this information is protected by the Federal Confidentiality of Alcohol and Drug Abuse Patient Records regulations: The Federal rules restrict any use of the information to criminally investigate or prosecute any alcohol or drug abuse patient.[facility] HospitalIn the event this information is protected by the Federal Confidentiality of Alcohol and Drug Abuse Patient Records regulations: The Federal rules restrict any use of the information to criminally investigate or prosecute any alcohol or drug abuse patient.[facility] HospitalIn the event this information is protected by the Federal Confidentiality of Alcohol and Drug Abuse Patient Records regulations: The Federal rules restrict any use of the information to criminally investigate or prosecute any alcohol or drug abuse patient.[facility] HospitalIn the event this information is protected by the Federal Confidentiality of Alcohol and Drug Abuse Patient Records regulations: The Federal rules restrict any use of the information to criminally investigate or prosecute any alcohol or drug abuse patient.[facility] HospitalIn the event this information is protected by the Federal Confidentiality of Alcohol and Drug Abuse Patient Records regulations: The Federal rules restrict any use of the information to criminally investigate or prosecute any alcohol or drug abuse patient.[facility] HospitalIn the event this information is protected by the Federal Confidentiality of Alcohol and Drug Abuse Patient Records regulations: The Federal rules restrict any use of the information to criminally investigate or prosecute any alcohol or drug abuse patient.[facility] HospitalIn the event this information is protected by the Federal Confidentiality of Alcohol and Drug Abuse Patient Records regulations: The Federal rules restrict any use of the information to criminally investigate or prosecute any alcohol or drug abuse patient.[facility] HospitalIn the event this information is protected by the Federal Confidentiality of Alcohol and Drug Abuse Patient Records regulations: The Federal rules restrict any use of the information to criminally investigate or prosecute any alcohol or drug abuse patient.[facility] HospitalIn the event this information is protected by the Federal Confidentiality of Alcohol and Drug Abuse Patient Records regulations: The Federal rules restrict any use of the information to criminally investigate or prosecute any alcohol or drug abuse patient.[facility] HospitalIn the event this information is protected by the Federal Confidentiality of Alcohol and Drug Abuse Patient Records regulations: The Federal rules restrict any use of the information to criminally investigate or prosecute any alcohol or drug abuse patient.[facility] HospitalIn the event this information is protected by the Federal Confidentiality of Alcohol and Drug Abuse Patient Records regulations: The Federal rules restrict any use of the information to criminally investigate or prosecute any alcohol or drug abuse patient.[facility] HospitalIn the event this information is protected by the Federal Confidentiality of Alcohol and Drug Abuse Patient Records regulations: The Federal rules restrict any use of the information to criminally investigate or prosecute any alcohol or drug abuse patient.[facility] Care Teams (unrecognized sec tion and content) Supervisor [employer] Relationship Specialty Start Date End Date Luisa Pemberton [address] [facility] [address] [place] [address] PCP - General 06/29/02 Supervisor [employer] Relationship Specialty Start Date End Date Luisa Pemberton [address] [facility] [address] [place] [address] PCP - General 06/29/02 Supervisor [employer] Relationship Specialty Start Date End Date Luisa Pemberton [address] [facility] [address] [place] [address] PCP - General 06/29/02 Supervisor [employer] Relationship Specialty Start Date End Date Luisa Pemberton [address] [facility] [address] [place] [address] PCP - General 06/29/02 Supervisor [employer] Relationship Specialty Start Date End Date Luisa Pemberton [address] [facility] [address] [place] [address] PCP - General 06/29/02 Supervisor [employer] Relationship Specialty Start Date End Date Luisa Pembertoner [address] [place] [address] [place] [address] PCP - General 06/29/02 Supervisor [employer] Relationship Specialty Start Date End Date Luisa Pemberton Hardeep [address] [place] [address] [place] [address] PCP - General 06/29/02 Supervisor [employer] Relationship Specialty Start Date End Date Luisa Pemberton Hardeep [address] [place] [address] [place] [address] PCP - General 06/29/02 Supervisor [employer] Relationship Specialty Start Date End Date Luisa Pemberton Hardeep [address] [place] [address] [place] [address] PCP - General 06/29/02 Supervisor [employer] Relationship Specialty Start Date End Date Luisa Pemberton Hardeep [address] [place] [address] [place] [address] PCP - General 06/29/02 Supervisor [employer] Relationship Specialty Start Date End Date Luisa Pembertoner [address] [place] [address] [place] [address] PCP - General 06/29/02 Supervisor [employer] Relationship Specialty Start Date End Date Luisa Pemberton Hardeep [address] [address] [place] [address] PCP - General 06/29/02 Supervisor [employer] Relationship Specialty Start Date End Date Luisa Pemberton Hardeep [address] [place] [address] [place] [address] PCP - General 06/29/02 Supervisor [employer] Relationship Specialty Start Date End Date Luisa Pemberton Harde[place] [address] [place] [address] [place] [address] PCP - General 06/29/02 Supervisor [employer] Relationship Specialty Start Date End Date Luisa Pemberton [address] [facility] [address] [place] [address] PCP - General 06/29/02 Supervisor [employer] Relationship Specialty Start Date End Date Luisa Pemberton [address] [facility] [address] [address] [place] [address] PCP - General 06/29/02 Supervisor [employer] Relationship Specialty Start Date End Date Luisa Pemberton [address] [facility] [address] [address] [place] [address] PCP - General 06/29/02 Supervisor [employer] Relationship Specialty Start Date End Date Luisa Pemberton [address] [facility] [address] [place] [address] PCP - General 06/29/02 Supervisor [employer] Relationship Specialty Start Date End Date Luisa Pemberton [address] [facility] [address] [place] [address] PCP - General 06/29/02 Supervisor [employer] Relationship Specialty Start Date End Date Luisa Pemberton [address] [facility] [address] [place] [address] PCP - General 06/29/02 Supervisor [employer] Relationship Specialty Start Date End Date Luisa Pemberton [address] [facility] [address] [place] [address] PCP - General 06/29/02 Supervisor [employer] Relationship Specialty Start Date End Date Luisa Pemberton [address] [facility] [address] [place] [address] PCP - General 06/29/02 Supervisor [employer] Relationship Specialty Start Date End Date Luisa Pemberton [address] [place] [address] [place] [address] PCP - General 06/29/02 Supervisor [employer] Relationship Specialty Start Date End Date Luisa Pemberton [address] [place] [address] [place] [address] PCP - General 06/29/02 Supervisor [employer] Relationship Specialty Start Date End Date Luisa Pemberton [address] [place] [place] [address] PCP - General 06/29/02 Supervisor [employer] Relationship Specialty Start Date End Date Luisa Pemberton [address] [place] [address] [place] [address] PCP - General 06/29/02 Supervisor [employer] Relationship Specialty Start Date End Date Luisa Pemberton [address] [place] [address] PCP - General 06/29/02 Supervisor [employer] Relationship Specialty Start Date End Date Luisa Pemberton [address] [place] [place] [address] PCP - General 06/29/02 Supervisor [employer] Relationship Specialty Start Date End Date Luisa Pemberton [address] [place] [address] [place] [address] PCP - General 06/29/02 Supervisor [employer] Relationship Specialty Start Date End Date Luisa Pemberton [address] [place] [address] [place] [address] PCP - General 06/29/02 Supervisor [employer] Relationship Specialty Start Date End Date Luisa Pemberton [address] [place] [address] [place] [address] PCP - General 06/29/02 Supervisor [employer] Relationship Specialty Start Date End Date Luisa Pemberton [address] [place] [address] [place] [address] PCP - General 06/29/02 Supervisor [employer] Relationship Specialty Start Date End Date Luisa Pemberton [address] [place] [place] [address] PCP - General 06/29/02 Supervisor [employer] Relationship Specialty Start Date End Date Caitlinshira Luisa Smith [address] [place] [address] [place] [address] PCP - General 06/29/02 Supervisor [employer] Relationship Specialty Start Date End Date Luisa Pemberton [address] [place] [address] [place] [address] PCP - General 06/29/02 Supervisor [employer] Relationship Specialty Start Date End Date Caitlinshira Luisa Smith [address] [place] [address] [place] [address] PCP - General 06/29/02 Team Status: Active Member Role Status Dates Dr. Luisa Pemberton MD Family Provider Active Dr. Luisa Pemberton MD Primary Care Provider Active Team Status: Inactive Member Role Status Dates Dr. Luisa Pemberton MD Primary Care Provider Active Dr. Mohit Henley MD Attending Provider, Referring Pr ovider Active Supervisor [employer] Relationship Specialty Start Date End Date Luisa Pemberton [address] [place] [place] [address] PCP - General 06/29/02 Supervisor [employer] Relationship Specialty Start Date End Date Luisa Pemberton [address] [place] [address] [place] [address] PCP - General 06/29/02 Supervisor [employer] Relationship Specialty Start Date End Date Luisa Pemberton [address] [place] [place] [address] PCP - General 06/29/02 Supervisor [employer] Relationship Specialty Start Date End Date Luisa Pemberton [address] [place] [address] [place] [address] PCP - General 06/29/02 Supervisor [employer] Relationship Specialty Start Date End Date Luisa Pemberton [address] [place] [address] [place] [address] PCP - General 06/29/02 Supervisor [employer] Relationship Specialty Start Date End Date Luisa Pemberton [address] [place] [address] [place] [address] PCP - General 06/29/02 Supervisor [employer] Relationship Specialty Start Date End Date Luisa Pemberton [address] [place] [place] [address] PCP - General 06/29/02 Supervisor [employer] Relationship Specialty Start Date End Date Luisa Pemberton [address] [place] [address] [place] [address] PCP - General 06/29/02 Supervisor [employer] Relationship Specialty Start Date End Date Luisa Pemberton [address] [place] [address] [place] [address] PCP - General 06/29/02 Supervisor [employer] Relationship Specialty Start Date End Date Luisa Pemberton [address] [place] [address] [place] [address] PCP - General 06/29/02 Supervisor [employer] Relationship Specialty Start Date End Date Luisa Pemberton [address] [place] [address] [place] [address] PCP - General 06/29/02 Supervisor [employer] Relationship Specialty Start Date End Date Luisa Pemberton [address] [place] [address] [place] [address] PCP - General 06/29/02 Supervisor [employer] Relationship Specialty Start Date End Date Luisa Pemberton [address] [place] [place] [address] PCP - General 06/29/02 Supervisor [employer] Relationship Specialty Start Date End Date Luisa Pemberton [address] [place] [address] PCP - General 06/29/02 Supervisor [employer] Relationship Specialty Start Date End Date Luisa Pemberton [address] [place] [address] PCP - General 06/29/02 Supervisor [employer] Relationship Specialty Start Date End Date Luisa Pemberton [address] [place] [place] [address] PCP - General 06/29/02 Supervisor [employer] Relationship Specialty Start Date End Date Luisa Pemberton [address] [place] [address] [place] [address] PCP - General 06/29/02 Supervisor [employer] Relationship Specialty Start Date End Date Luisa Pemberton [address] [place] [address] [place] [address] PCP - General 06/29/02 Supervisor [employer] Relationship Specialty Start Date End Date Luisa Pemberton [address] [place] [place] [address] PCP - General 06/29/02 Supervisor [employer] Relationship Specialty Start Date End Date Luisa Pemberton [address] [place] [address] [place] [address] PCP - General 06/29/02 Supervisor [employer] Relationship Specialty Start Date End Date Luisa Pemberton [address] [place] [place] [address] PCP - General 06/29/02 Supervisor [employer] Relationship Specialty Start Date End Date Luisa Pemberton [address] [place] [place] [address] PCP - General 06/29/02 Supervisor [employer] Relationship Specialty Start Date End Date Luisa Pemberton [address] [place] [address] PCP - General 06/29/02 Team Status: Active Member Role/Relationship Status Dates Dr. Luisa Pemberton MD Primary care physician Active Michele Galvan MD Primary care physician Active Team Status: Inactive Member Role/Relationship Status Michele Galvan MD Primary care physician Active [...] ACCESSORY NERVES, BILATERAL [facility] [address] [place] [address] Phone: tel: fax: Referral ID Status Reason Start Date Expiration Date Visits Re quested Visits Authorized [id number] 1 1 Reason Comments generalized pain Reason Comments UTI Reason Comments Orders Reason Comments Scheduling Procedure Reason Comments Search Manager - Other Specialty Diagnoses / Procedures Referred By Contac t Referred To Contact Diagnoses Migraine variant 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 Migraine variant [G43.809] 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 [G43.711] Procedures CHEMODERVATE FACIAL/TRIGEM/CERV MUSC MIGRAINE CHEMODENERVATION OF MUSCLE(S) INNERVATED BY FACIAL, TRIGEMINAL, CERVICAL SPINAL AND ACCESSORY NERVES, BILATERAL [facility] [address] [facility] [place] [address] Referral ID Status Reason Start Date Expiration Date Visits Re quested Visits Authorized [id number] 1 1 Reason Comments Case Needed Orders [...] AND ACCESSORY NERVES, BILATERAL [facility] [address] [place] [id number] Referral ID Status Reason Start Date Expiration Date Visits Re quested Visits Authorized [id number] 1 1 Reason Onset Date Comments Refill Request 09/02/2023 Reason Comments Pain Generalized pain Reason Onset Date Comments Refill Request 10/24/2023 Reason Comments November 11 procedure Opened In Error Reason Comments Procedure denied Reason Comments Headache Chrinic migraines Pain generalized Reason Comments Resubmission for botox approval Specialty Diagnoses / Procedures Referred By Contac t Referred To Contact Diagnoses Migraine, unspecified, without mention of intractable migraine without mention of status migrainosus Procedures CHEMODERVATE FACIAL/TRIGEM/CERV MUSC MIGRAINE CHEMODENERVATION OF MUSCLE(S) INNERVATED BY FACIAL, TRIGEMINAL, CERVICAL SPINAL AND ACCESSORY NERVES, BILATERAL [facility] [address] [place] [id number] Referral ID Status Reason Start Date Expiration Date Visits Re quested Visits Authorized [id number] 1 1 Reason Onset Date Comments Refill [...] THREE OR MORE MUSCLES [facility] [address] [place] [id number] Referral ID Status Reason Start Date Expiration Date Visits Re quested Visits Authorized [id number] 1 1 Specialty Diagnoses / Procedures Referred By Contac t Referred To Contact Diagnoses 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 Migraine, unspecified, without mention of intractable migraine without mention of status migrainosus Procedures [id number] MUSC MUSC INNERVATED FACIAL NRV UNIL CHEMODENERVATION OF MUSCLE (S), MUSCLE (S) INNERVATED BY FACIAL NERVE [facility] [address] [place] [address] Referral ID Status Reason Start Date Expiration Date Visits Re quested Visits Authorized [id number] 1 Reason Comments Cases needed for [...] INNERVATED BY FACIAL NERVE [facility] [address] [place] [id number] Referral ID Status Reason Start Date Expiration Date Visits Re quested Visits Authorized [id number] 1 1 Reason Onset Date Comments Refill [...] INNERVATED BY FACIAL NERVE [facility] [address] [place] [id number] Referral ID Status Reason Start Date Expiration Date Visits Re quested Visits Authorized [id number] 1 1 Specialty Diagnoses / Procedures Referred By Contac t Referred To Contact Diagnoses Myofascial pain syndrome Myofascial pain syndrome [M79.18] Procedures TRIGGER POINT INJECTION MULTI 3+ MUSCLE GRP INJECTION TRIGGER POINT THREE OR MORE MUSCLES [facility] [address] [place] [id number] Referral ID Status Reason Start Date Expiration Date Visits Re quested Visits Authorized [id number] 1 1 Reason Onset Date Comments Refill [...] Intraprocedure 1508 (Given - Provid er: Dejon Andrse MD) PRN Medication Order 09/01/2023 09/02/2023 09/03/2023 [...] injection (CANCELED) X (OR/PROCEDURE) PRN, Starting on 07/07/24 [...] injection (CANCELED) X (OR/PROCEDURE) PRN, Starting on Sat10/06/24 at 1544, Until Sat10/06/24 at 1603, Intraprocedure 1544 (Given - Provid er: Vini Mcdonald MD) onabotulinum toxin type A injection (BOTOX) (CANCELED) X (OR/PROCEDURE) PRN, Starting on Sat10/06/24 at 1544, Until Sat10/06/24 at 1603, Intraprocedure 1544 (Given - Provid [...] PRN, Starting on Sat01/05/25 at 1513, Until 01/05/25 at 1523, Intraprocedure 1513 (Given - Provid er: Vini Mcdonald MD) onabotulinum toxin type A injection (BOTOX) (CANCELED) X (OR/PROCEDURE) PRN, Starting on e 01/05/25 at 1513, Until 01/05/25 at 1522, Intraprocedure 151 (Given - Provid er: Vini Mcdonald MD) PRN Medication Order 02/21/2025 02/22/2025 02/23/2025 bupivacaine (PF) 0.25 % (2.5 mg/mL) injection (SENSORCAINE MPF) (CANCELED) X (OR/PROCEDURE) PRN, Starting on Sat02/23/25 at 1644, Until 02/23/25 at 1646, Intraprocedure 1644 (Given - Provid [...] BE BASED ON THE PRIMARY CLINICAL RECORDS. [facility]. provides no warranty or guarantee of the accuracy or completeness of information in this document.
[2025-05-03] MEDS: 0.9% Normal Saline (1000mL) 1,000 ML 100 ML IV (19:32)
[2025-05-03] MEDS: oxyCODONE Soln 5 MG/0.25 ML PO.SYRINGE 10 MG PO (19:40)
[2025-05-03] MEDS: Heparin Injection (Vial) 5,000 UNIT/ML VIAL 5000 UNIT SC (19:42)
[2025-05-03] MEDS: Pantoprazole Sodium 40 MG in 0.9% Normal Saline (100mL MB+) 100 ML 330 MG IV (19:42)
[2025-05-03 20:00] LABS: Mucous, Urine 0 SEEN /hpf (<or=2+)
[2025-05-03 20:13] LABS: Color, Urine Straw (Yellow); Glucose, Dipstick 250 mg/dl (Normal); Leukocyte Esterase-Dipstick Negative /ul (Negative); Nitrite-Dipstick Negative (Negative); Occult Blood-Urine 25 /ul (Negative); Protein-Dipstick Negative (Negative); Specific Gravity, Urine 1.010 (1.002-1.030); Urine Bilirubin Dipstick Negative (Negative)
[2025-05-03 20:17] LABS: Ketone-Dipstick 150 mg/dl (Negative)
[2025-05-03 20:45] LABS: Red Blood Cells-Urine 0-5 SEEN /hpf (0-5); Squamous Epithelial Cells - UA 0-5 SEEN /hpf (5-10); Transitional Epithelial - Ur 0-5 SEEN /hpf (0-5)
--- NOTE | 2025-05-03 22:08 | PCM.HOSP.N ---
Hospitalist Note UA resulted ketones of 150. Discussed with hospitalist, due to starvation ketosis, IVF changed to D5LR at 100ml/hr.
[2025-05-04] MEDS: oxyCODONE Soln 5 MG/0.25 ML PO.SYRINGE 10 MG PO ×7 (00:27→22:43)
[2025-05-04 03:20] VITALS: BP 129/68; PULSE 98; RESP 16; TEMP 36.6; O2SAT 100
[2025-05-04 05:47] VITALS: BMI 18.3
[2025-05-04 07:22] VITALS: O2SAT 100
[2025-05-04 07:22] LABS: Hematocrit 35.2 % (37-47); Hemoglobin 11.3 g/dL (12.0-15.0); Immature Granulocytes Count 0.010 X10^3/uL (0.0-0.0); Mean Corp Hgb Conc 32.1 g/dL (32-36); Mean Corpuscular Volume 93.1 fL (81-99); Mean Platelet Vol. 10.4 fl (6.2-12.0); NRBC Flagged by Analyzer 0 % (0-5); Platelet Count 272 K/mm3 (150-450); RBC Distribution Width CV 12.6 % (11.6-14.6); RBC Distribution Width SD 43.4 fl (35.1-43.9); Red Blood Count 3.78 M/mm3 (4.2-5.4); White Blood Count 5.1 K/mm3 (4.4-11.0)
[2025-05-04 08:11] LABS: Magnesium 1.8 mg/dL (1.5-2.2)
[2025-05-04 08:32] LABS: AST(SGOT) 23 U/L (<=31); Alanine Aminotransfer ALT/SGPT 24 U/L (<=34); Albumin, Serum 3.4 g/dL (3.5-5.0); Alkaline Phosphatase 54 U/L (35-104); Anion Gap 15 (5-15); BUN 13 mg/dL (4-19); BUN/Creat Ratio 12.9 RATIO (10-20); Calcium,Total 8.1 mg/dL (7.6-11.0); Carbon Dioxide 16.6 mmol/L (21.0-32.0); Chloride 108 mmol/L (98-108); Estimated Creatinine Clearance 59.60 ml/min (50-250); Globulin 1.6 g/dL (2.2-4.2); Glucose 97 mg/dL (70-99); Potassium 3.5 mmol/L (3.3-5.1)
[2025-05-04 09:00] VITALS: BP 127/76; PULSE 81; RESP 16; TEMP 36.7; O2SAT 99
[2025-05-04] MEDS: Heparin Injection (Vial) 5,000 UNIT/ML VIAL 5000 UNIT SC ×2 (10:25→21:51)
[2025-05-04] MEDS: Pantoprazole Sodium 40 MG in 0.9% Normal Saline (100mL MB+) 100 ML 330 MG IV ×2 (10:43→21:52)
--- NOTE | 2025-05-04 10:59 | PN.HOSP_ITS ---
Subjective Subjective She was able to tolerate clears this morning and was asking about possible discharge. Still has nausea Objective Data Objective Data Vital Signs: Vital Signs Temp Pulse Resp BP Pulse Ox O2 Del Method 97.8 F 98 16 129/68 H 100 Room Air 05/04/25 03:20 05/04/25 03:20 05/04/25 03:20 05/04/25 03:20 05/04/25 07:22 05/04/25 07:22 Oxygen Delivery Method Room Air Weight: 117 lb 4.575 oz Body Mass Index (BMI) 18.3 Intake & Output: Intake and Output for Last 24 Hours 05/03/25 05/04/25 05/05/25 03:59 03:59 03:59 Intake Total 2920 / 2920 250 / 250 Balance 2920 / 2920 250 / 250 Lab / Micro Data 05/04/25 06:30 05/04/25 06:30 Labs: Laboratory Results - last 24 hr 05/03/25 15:55: WBC 11.4 H, RBC 4.85, Hgb 14.4, Hct 45.4, MCV 93.6, MCH 29.7, M CHC 31.7 L, RDW Std Deviation 42.9, RDW Coeff of Myra 12.4, Plt Count 300, MPV 9.9, Immature Gran % (Auto) 0.400, Neut % (Auto) 77.2 H, Lymph % (Auto) 14.0 L, [place] % (Auto) 7.7, Eos % (Auto) 0.4, Baso % (Auto) 0.3, Absolute Neuts (auto) 8.8 H, Absolute Lymphs (auto) 1.59, Nucleated RBC % 0, Sodium 139, Potassium 4.3, Chloride 99, Carbon Dioxide 15.0 L, Anion Gap 25 H, BUN 29 H, Creatinine 1.92 H, Estim Creat Clear Calc 30.19 L, Est GFR (MDRD) Non-Af 32 L, BUN/Creatinine Ratio 14.9, Glucose 79, Calcium 9.6, Phosphorus 5.8 H, Magnesium 2.3 H 05/03/25 19:50: Urine Color Straw, Urine Clarity Clear, Urine pH 5.0, Ur Specific [place] 1.010, Urine Protein Negative, Urine Glucose (UA) 250 H, Urine Ketones 150 A*, Urine Occult Blood 25 H, Urine Nitrite Negative, Urine Bilirubin Negative, Urine Urobilinogen Normal, Ur Leukocyte Esterase Negative, Urine RBC 0-5 SEEN, Urine WBC 0-5 SEEN, Ur Squamous Epith Cells 0-5 SEEN, Ur Transition Epith Cell 0-5 SEEN, Urine Bacteria 0 SEEN, Urine Mucus 0 SEEN 05/04/25 06:30: WBC 5.1, RBC 3.78 L, Hgb 11.3 L, Hct 35.2 L, MCV 93.1, MCH 29.9, MCHC 32.1, RDW Std Deviation 43.4, RDW Coeff of Myra 12.6, Plt Count 272, MPV 10.4, Immature Gran % (Auto) 0.200, Neut % (Auto) 49.5, Lymph % (Auto) 36.7, M k[place] % (Auto) 11.6 H, Eos % (Auto) 1.6, Baso % (Auto) 0.4, Absolute Neuts (auto) 2.5, Absolute Lymphs (auto) 1.87, Nucleated RBC % 0, Sodium 140, Potassium 3.5, Chloride 108, Carbon Dioxide 16.6 L, Anion Gap 15, BUN 13, Creatinine 0.98, Estim Creat Clear Calc 59.60, Est GFR (MDRD) Non-Af 72, BUN/Creatinine Ratio 12.9, Glucose 97, Calcium 8.1, Phosphorus 2.5 L, Magnesium 1.8, Total Bilirubin 0.33, AST 23, ALT 24, Alkaline Phosphatase 54, Total Protein 5.0 L, Albumin 3.4 L, Globulin 1.6 L, Albumin/Globulin Ratio 2.2 Physical Exam Narrative General: Alert, Oriented x3, Cooperative, No apparent distress HEENT: Atraumatic, PERRLA, EOMI, Normocephalic Oral: Moist Mucosa Neck: Supple, No JVD Lungs: Diminished, Normal air movement, No rhonchi, No wheeze, No rales Cardiovascular: Regular rate, Regular Rhythm, Normal S1, Normal S2, No murmurs Abdomen: Soft, Non Tender, Non-Distended, No Hepato-splenomegaly Extremities: No edema, Capillary Refill Less than 3 Seconds Skin: No rashes, No breakdown Musculoskeletal: No Tenderness to Palpation of Joints or Extremities Neurological: No focal neurological deficits, moves all extremities Psych/Mental Status: Normal Affect, Appropriate Assessment & Plan Assessment/Plan (1) ELOY (acute kidney injury): PLAN: Plan 1. 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 She takes Singulair and Zyrtec for this condition and the rash that she had prior to admission has resolved so potentially on the mend ? Continue with IV fluids ? She is on Haldol scheduled and Compazine as needed ? She did tolerate clears this morning and did ask for possible discharge, will see how she does with lunch ? Her ELOY has completely resolved, her creatinine today is 0.98 on admission was 1.9 ? Continue with PPI DVT: Heparin Charges/Coding Visit Charges Inpatient E&M: 29919 Subs Hosp L2
[2025-05-04 13:54] VITALS: BP 124/56; PULSE 94; RESP 16; TEMP 36.9; O2SAT 99
[2025-05-04] MEDS: DiphenhydrAMINE 50 MG/ML Syringe 25 MG IV ×2 (13:55→20:12)
[2025-05-04] MEDS: 0.9% Saline Lock 10 ML Syringe IV (13:56)
--- NOTE | 2025-05-04 15:57 | CASEMGMT ---
SAMAN TRENT Assessment Face to Face with patient for initial transition planning/care coordination assessment. SAMAN TRENT introduced self and role at [facility], pt voices understanding. Pt is A&Ox4 and is resting comfortably in bed and is calm. Care providers, pharmacy, and demographics verified. Admitting dx: Intractable N/V, ELOY PCP: Michele Brown Specialists: AYAAN, [facility], Lory (ENT) Preferred Pharmacy: [facility] Insurance: MCR A/B, [employer] Prescription Benefit: Yes LNOK: Ailin (Mother), Georges (Friend) Living Arrangements: Pt lives with her mom in a single story home with 3 steps to enter ADLs/IADLs: Indep, 6-Click score is 24 Transportation: Self, Denies concerns at DC DME: Denies needs HHC/SNF: Denies hx or needs Pt?s goal:Home Plan: Home with pt's mother once medically ready. Pt denies the need for any additional therapy or resources. Pt states that she feels safe returning home at the time of DC and denies any further questions, concerns, or needs. Barbara Horn RN, CM
[2025-05-04 21:34] VITALS: BP 121/56; PULSE 84; RESP 16; TEMP 36.3; O2SAT 99
[2025-05-05 01:11] VITALS: BP 121/62; PULSE 79; RESP 16; TEMP 36.6; O2SAT 100
[2025-05-05] MEDS: oxyCODONE Soln 5 MG/0.25 ML PO.SYRINGE 10 MG PO ×4 (03:17→16:20)
[2025-05-05 03:31] VITALS: BMI 18.3
[2025-05-05 08:27] VITALS: O2SAT 98
[2025-05-05] MEDS: Pantoprazole Sodium 40 MG in 0.9% Normal Saline (100mL MB+) 100 ML 330 MG IV (10:05)
[2025-05-05] MEDS: Heparin Injection (Vial) 5,000 UNIT/ML VIAL 5000 UNIT SC (10:05)
--- NOTE | 2025-05-05 13:21 | DCINST_ITS ---
Discharge Instructions DC O2, CPAP, BIPAP needs Home O2 Discharge instructions: No Dressing / Incision Discharge Activity: Return to Normal Activity Dressing / Incision Call your doctor if you observe: Fever of 101 or Higher, Shortness of breath, Dizziness, Fainting spells, Swelling in the ankles, Chest pain and Increased palpitations (irregular heartbeat) Follow Up Care Test Results: Test results from this visit will be discussed in further detail at your follow- up appointment, if applicable. Discharge Plan Admission Admit Date/Time: 05/03/25 17:58 Attending Provider: Vini Ortiz Primary Care Provider: Michele Brown Consulting Providers: Liliana Mcwilliams Discharge Orders/Prescriptions Prescriptions: New metoclopramide HCl [Reglan] 5 mg tablet 5 mg PO Q8H PRN (Reason: nausea and vomiting) Qty: 10 0RF Continued Zyrtec 10 mg capsule 10 mg PO QDAY PRN (Reason: allergy symptoms) megestrol 400 mg/10 mL (40 mg/mL) suspension 80 mg PO DAILY Patient Comments: TAKE 2 MILLILITERS BY MOUTH TWICE A DAY montelukast [Singulair] 10 mg tablet 10 mg PO QHS Patient Comments: Take 1 tablet oral once a day multivitamin [Daily Multi-Vitamin] Tablet 1 tab PO DAILY oxycodone 20 mg/mL concentrate 10 mg PO Q4H Patient Comments: TAKE 0.5-1 ML BY MOUTH EVERY 4 HOURS clonidine HCl 0.1 mg tablet 0.1 mg PO BID Patient Comments: PT HS NOT STARTED YET ondansetron HCl 8 mg tablet 8 mg PO Q8H PRN PRN (Reason: nausea/vomiting) Referrals / Follow Up: Michele Brown MD [Primary Care Provider, Family Practice] - Within 1 Week Disposition Disposition (needs filled in before D/C Order can be placed): Home, Self Care
--- NOTE | 2025-05-05 15:21 | PCM.DC.SUM ---
Providers Date of Admission: 05/03/25 Primary Care Physician: Michele Brown MD Reason For Visit: INTRACTABLE N/V, ELOY Diagnosis Discharge Diagnosis (1) ELOY (acute kidney injury): Status: Acute Code(s): N17.9 - Acute kidney failure, unspecified Medications at Discharge Home Medications megestrol 400 mg/10 mL (40 mg/mL) oral suspension 80 mg PO DAILY 07/31/23 montelukast 10 mg tablet (Singulair) 10 mg PO QHS 07/31/23 multivitamin (Daily Multi-Vitamin tablet) 1 tab PO DAILY 07/31/23 cetirizine 10 mg capsule (Zyrtec) 10 mg PO QDAY PRN allergy symptoms 04/05/25 oxycodone 20 mg/mL oral concentrate 10 mg PO Q4H 04/08/25 clonidine HCl 0.1 mg tablet 0.1 mg PO BID 05/03/25 ondansetron HCl 8 mg tablet 8 mg PO Q8H PRN PRN nausea/vomiting 05/03/25 metoclopramide HCl 5 mg tablet (Reglan) 5 mg PO Q8H PRN nausea and vomiting #10 tabs 05/05/25 Hospital Course Operations None Procedures None Summary of Care Provided Minutes Spent on Discharge: 33 Hospital Course: Per HPI: The patient is a 49 y/o F w/ PMHx: Chronic allergic rhinitis, 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 Patient reports BL ear tube intervention 1 week prior. She also notes recent CT with evidence of stable nonobstructive kidney stone with no hydronephrosis with no recent increased flank discomfort or dysuria. She does have chronic pain and this is stable. She does report this presentation is similar to previous cyclic emesis syndrome episodes. Workup in the ED included T97.8, heart rate initially 139, BP 112/62, respiratory rate 18, under percent on room air with most recent repeat vitals heart rate 105, BP 122/46, respiratory rate 18, 100% on room air, CBC with WC 11.4, hemoglobin 14.4, platelets 300 with left shift, BMP CO2 15, anion gap 25, BUN/Cr29/1.29, GFR 32. In the ED patient administered dextrose IV fluid 1 L, famotidine 20 mg IV x 1, 1 L normal saline, Zofran 4 mg IV x 1. Hospital Course: 1. 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 She states that this usually happens when her mast cells get activated from an allergic reaction. She is having some improvement however yesterday she had a reaction to the soap in her showers and was unable to go home. Today she is feeling much better and was able to tolerate solid food. I discussed with her the possibility for discharge as her ELOY has resolved and she expressed understanding of the risks and benefits of going home and would like to go home today. She was little bit concerned going home with just Zofran so since she will not be on Compazine or Haldol will trial her on as needed Reglan 5 mg to see how she tolerates that given the issues with gastroparesis. She does have outpatient follow-up with gastroenterology in June. Of note her ELOY resolved, on admission her creatinine was 1.9 and yesterday was 0.98. I do recommend outpatient follow-up. Weight / BMI Weight Weight: 116 lb 13.52 oz Body Mass Index (BMI) 18.3 ABG / Lab / Microbiology Data 05/04/25 06:30 05/04/25 06:30 D/C Instructions Call your doctor if you observe: Fever of 101 or Higher, Shortness of breath, Dizziness, Fainting spells, Swelling in the ankles, Chest pain and Increased palpitations (irregular heartbeat) DC O2, CPAP, BIPAP Needs Home O2 Discharge instructions: No Meaningful Use Info Meaningful Use Meaningful Use Diagnoses (Choose all that apply): None applicable Discharge Plan Admission Admit Date/Time: 05/03/25 17:58 Attending Provider: Vini Ortiz Primary Care Provider: Michele Brown Consulting Providers: Liliana Mcwilliams Discharge Orders/Prescriptions Prescriptions: New metoclopramide HCl [Reglan] 5 mg tablet 5 mg PO Q8H PRN (Reason: nausea and vomiting) Qty: 10 0RF Continued Zyrtec 10 mg capsule 10 mg PO QDAY PRN (Reason: allergy symptoms) megestrol 400 mg/10 mL (40 mg/mL) suspension 80 mg PO DAILY Patient Comments: TAKE 2 MILLILITERS BY MOUTH TWICE A DAY montelukast [Singulair] 10 mg tablet 10 mg PO QHS Patient Comments: Take 1 tablet oral once a day multivitamin [Daily Multi-Vitamin] Tablet 1 tab PO DAILY oxycodone 20 mg/mL concentrate 10 mg PO Q4H Patient Comments: TAKE 0.5-1 ML BY MOUTH EVERY 4 HOURS clonidine HCl 0.1 mg tablet 0.1 mg PO BID Patient Comments: PT HS NOT STARTED YET ondansetron HCl 8 mg tablet 8 mg PO Q8H PRN PRN (Reason: nausea/vomiting) Referrals / Follow Up: Michele Brown MD [Primary Care Provider, Family Practice] - Within 1 Week Disposition Disposition (needs filled in before D/C Order can be placed): Home, Self Care Charges/Coding Visit Charges Inpatient E&M: 06522 Disch Hosp >30min
--- NOTE | 2025-05-05 16:09 | CASEMGMT ---
Patient has order for discharge. RN CM in to discuss needs at discharge. Patient denies needs or help at discharge. Patient had no further questions or concerns.
== END 2025-05-05 16:42 | disposition home or self-care (01) | DRG 815 ==
LOC: ED 18:07 → MS3 18:23
PROVIDERS: Admitting Provider Family Medicine; Emergency Provider Emergency Medicine; PCP Family Medicine; Visit Provider Family Medicine
DX: D89.4 Mast cell activation syndrome and related disorders (principal); N17.9 Acute kidney failure, unspecified; Q79.60 Ehlers-Danlos syndrome, unspecified; Z68.1 Body mass index [BMI] 19.9 or less, adult; E88.89 Other specified metabolic disorders; R62.7 Adult failure to thrive; G71.00 Muscular dystrophy, unspecified; K31.84 Gastroparesis; G90.A Postural orthostatic tachycardia syndrome [POTS]; R11.15 Cyclical vomiting syndrome unrelated to migraine; E86.0 Dehydration; G71.3 Mitochondrial myopathy, not elsewhere classified; J31.0 Chronic rhinitis; L50.0 Allergic urticaria; Z99.3 Dependence on wheelchair; Z79.899 Other long term (current) drug therapy; Z86.16 Personal history of COVID-19
CPT/HCPCS: 36415; 80048; 80053; 81001; 83735; 84100; 85025; 87086; 87088; 94668; 99283; A4216; J2405

== ENCOUNTER → 2025-05-27 | Outpatient (CLI) | payer MEDICARE, MEDICAID, SELFPAY ==
--- NOTE | 2025-05-27 14:45 | BI_ITS ---
EXAM: SCRN MAMM (CAD)W/DAVID BILAT DATE: 05/27/2025 CLINICAL HISTORY: F, Age 49 y/o , ANNUAL Grandmothers with breast cancer. TECHNIQUE: Procedure Code: [id number] Modality: MG Procedure: SCRN MAMM (CAD)W/DAVID BILAT COMPARISON: Prior exam(s) dated February 18, 2024.. FINDINGS: TISSUE DENSITY: The breasts are heterogeneously dense, which may obscure small masses. Bilateral Breast Mammographic Findings: No significant masses, calcifications or other abnormalities are identified. No suspicious masses, areas of developing architectural distortion, or suspicious calcifications. There has been no significant interval change. BI/SCRN MAMM (CAD)W/DAVID BILAT IMPRESSION: Stable bilateral screening mammogram. OVERALL FINAL ASSESSMENT BI-RADS 1: NEGATIVE. RECOMMENDATION: Routine annual follow-up in 1 Year Additional Recommendation none A letter with findings and recommendations will be mailed to the patient. Reading Location: [facility]
== END | disposition home or self-care (01) ==
PROVIDERS: PCP Family Medicine; Referring Provider Family Medicine; Visit Provider Family Medicine
DX: Z12.31 Encounter for screening mammogram for malignant neoplasm of breast (principal)
CPT/HCPCS: 77063; 77067